=== PATIENT | female | born 1965 | race Caucasian/White ===

== ENCOUNTER 2019-09-06 01:45 | Outpatient (CLI) | payer MEDICARE, BC, SELFPAY ==
--- NOTE | 2019-09-06 13:16 | DI.US_ITS ---
EXAM: US THYROID CLINICAL HISTORY: MULTINODULAR THYROID GOITER E04.2. TECHNIQUE: Ultrasound performed using standard protocol. COMPARISON: THYROID ULTRASOUND from 08/29/2011 FINDINGS: There are again noted to be multiple nodules. The largest nodule in the right lobe measures 1.6 cm i n greatest dimension. The right lobe measures 5.4 x 2.2 x 2 cm. Left lobe measures 5.6 x 1 8 x 1.9 cm. There are multiple cystic and circumscribed nodules. No suspicious nodules are identified. IMPRESSION: Multinodular thyroid. No suspicious nodules.
== END 2019-09-06 02:05 ==
PROVIDERS: PCP Nurse Practitioner Family; Visit Provider Nurse Practitioner Family
DX: E04.2 Nontoxic multinodular goiter (principal)
CPT/HCPCS: 76536

== ENCOUNTER 2020-03-15 01:46 | Outpatient (CLI) | payer MEDICARE, BC, SELFPAY ==
[2020-03-15 12:35] LABS: ALT 26 U/L (14-59); AST 16 U/L (15-37); Albumin 3.9 g/dL (3.4-5.0); Alkaline Phosphatase 48 U/L (46-116); Anion Gap 7.7 mmol/L (3-11); BUN 19 mg/dL (7-18); Bilirubin, Direct 0.19 mg/dL (0.00-0.20); Bilirubin, Total 0.7 mg/dL (0.2-1.0); CO2 29.3 mmol/L (21.0-32.0); CREATININE 0.84 mg/dL (0.55-1.02); Chloride 105 mmol/L (98-107); Glucose 92 mg/dL (74-106); Potassium 4.3 mmol/L (3.5-5.1); Sodium 142 mmol/L (136-145); Total Protein 6.7 g/dL (6.4-8.2)
== END 2020-03-15 02:06 ==
PROVIDERS: PCP Nurse Practitioner Family; Visit Provider Nurse Practitioner Family
DX: F31.9 Bipolar disorder, unspecified (principal); Z51.81 Encounter for therapeutic drug level monitoring; Z79.899 Other long term (current) drug therapy
CPT/HCPCS: 36415; 80048; 80076; 80178

== ENCOUNTER 2020-11-05 03:09 | Outpatient (CLI) | payer MEDICARE, BC, SELFPAY ==
[2020-11-05 15:26] LABS: ALT 20 U/L (14-59); AST 14 U/L (15-37); Albumin 3.7 g/dL (3.4-5.0); Alkaline Phosphatase 48 U/L (46-116); Anion Gap 4.5 mmol/L (3-11); BUN 24 mg/dL (7-18); Bilirubin, Total 0.4 mg/dL (0.2-1.0); CO2 27.5 mmol/L (21.0-32.0); CREATININE 0.94 mg/dL (0.55-1.02); Calcium 9.5 mg/dL (8.5-10.1); Chloride 105 mmol/L (98-107); Ferritin 48 ng/mL (8-252); Glucose 99 mg/dL (74-106); Sodium 137 mmol/L (136-145); Total Protein 6.5 g/dL (6.4-8.2); Vitamin B12 670 pg/mL (193-986)
== END 2020-11-05 03:29 ==
PROVIDERS: PCP Nurse Practitioner Family; Visit Provider Nurse Practitioner
DX: R53.83 Other fatigue (principal); M25.561 Pain in right knee; F31.9 Bipolar disorder, unspecified
CPT/HCPCS: 36415; 80053; 82607; 82728; 84443

== ENCOUNTER 2020-11-29 19:08 | Emergency (ER) | payer MEDICARE, BC, SELFPAY ==
[2020-11-29 19:12] VITALS: BP 144/71; PULSE 78; RESP 18; TEMP 36.8; O2SAT 94
--- NOTE | 2020-11-29 19:19 | ED.GENADUL_ITS ---
Discharge Plan Disposition Patient Disposition: HOME Condition: Stable Discharge Details Clinical Impression: Laceration of left thumb Primary Care Provider: Virginie Gudino ED Provider: Kirsten Ely Home Meds and New Rx's Prescriptions: No Action ropinirole 1 mg tablet 1 mg PO DAILY RF: 0 lithium carbonate 300 mg tablet extended release 300 mg PO BID RF: 0 lorazepam 0.5 mg tablet 0.5 mg PO Q6H PRNRF: 0 zolpidem 5 mg tablet 5 mg PO HS PRN (Reason: can take half to one tablet) RF: 0 fluoxetine 20 mg capsule 20 mg PO DAILY RF: 0 Discharge Instructions Instructions: Finger Laceration (ED) Additional Instructions: keep dressing clean and dry for 1 day, then can remove and wash daily with warm soapy water, do not soak, pat dry completely, cover to protect. you have a steristrip holding wound closed. this will peel off gradually, don't pull it off as it would open your wound your tetanus was updated on this visit. monitor for signs of infection and return immediately if you do or call pcp. elevate to reduce throbbing and swelling can use ibuprofen and or acetaminophen for pain Referrals: Virginie Gudino [Primary Care Provider] - Discharge Data Discharge Date/Time-TO BE ENTERED AT DEPARTURE: 11/29/20 20:12 Medical Decision Making tetanus update 12-15-2012 wound cleansed by nursing, no debris in wound, wound well approximated, LET applied, bleeding controlled with finger tourniquet applied for care and evaluation. Steri strip and tube gauze applied. no further bleeding noted. Patient Name: CLIFF BECERRAit #: [id number]: ER Ordering Provider: : [facility] ER Primary Care Provider: Kei Gudino of Exam: 11/29/20ex: F : 1965Age: 55 Exam(s) PROCEDURE INFORMATION: Exam: XR Left Finger(s) Exam date and time: 11/29/2020 7:23 PM Age: 55 years old Clinical indication: Injury or trauma; Other: Laceration; Finger; Left; Injury date: 11/29/20; Injury details: PT was sharpening kitchen knives and accidentally cut her thumb. TECHNIQUE: Imaging protocol: XR Left fingers. Views: Frontal view of hand obtained supplemented with oblique and lateral views of the thumb. COMPARISON: No relevant prior studies available. FINDINGS: Bones/joints: No fracture or subluxation. Soft tissues: No radiopaque foreign body. Overlying dressing somewhat limits evaluation of soft tissues. IMPRESSION: No acute findings. Dictated and Authenticated by: Ismael Maravilla MD. Ordering:BENNIE Curtis MD Medical Records Medical records reviewed: Yes I reviewed the patient's medical records. HPI General Date/Time Provider Initiated Documentation: 11/29/20 19:16 . Limitations to Documentation: no limitations . Information obtained by: patient . HPI Narrative: cut left thumb on kitchen knife, bleeding on arrival. not on blood thinners. Related Data Home Medications Medication Instructions Recorded Confirmed fluoxetine 20 mg PO DAILY 11/29/20 11/29/20 lithium carbonate 300 mg PO BID 11/29/20 11/29/20 lorazepam 0.5 mg PO Q6H PRN 11/29/20 11/29/20 ropinirole 1 mg PO DAILY 11/29/20 11/29/20 zolpidem 5 mg PO HS PRN 11/29/20 11/29/20 Allergies Allergy/AdvReac Type Severity Reaction Status Date / Time NSAIDS (Non-Steroidal AdvReac Intermediate Other (See Unverified 11/29/20 19:17 Anti-Inflamma Comment) General Stated Complaint: Laceration EDIN: 4 Review of Systems All systems reviewed & are unremarkable except as noted in HPI and below Integumentary/Breasts Skin/Breast: Reports other (1 cm laceration) Hematologic/Lymphatic Hematologic/Lymphatic: Denies easy bleeding and Denies easy bruising PFSH Social History Smoking risk assessment performed?: No Alcohol Intake: current Alcohol Intake frequency: 0-2 drinks per day Alcohol type: wine Substance use type: does not use Do you feel safe at home: Yes Do you feel safe in your relationship?: Yes Exam Const General: cooperative, healthy appearing, comfortable and intoxicated appearing Resp Effort & Inspection: normal respiratory effort Cardio Rate: regular rate Rhythm: regular rhythm (good pulse) Skin Lesions: lesion noted (1 cm laceration, well approximate to border of nail bed, not involving nail) Rashes: no rashes Course Vital Signs Vital signs: Vital Signs Temperature 36.8 C 11/29/20 19:12 Pulse 78 11/29/20 19:12 Respiratory Rate 18 11/29/20 19:12 Blood Pressure 144/71 H 11/29/20 19:12 Pulse Oximetry 94 11/29/20 19:12 Temperature 36.8 C 11/29/20 19:12 Temperature Source Skin 11/29/20 19:12 Pulse 78 11/29/20 19:12 Respiratory Rate 18 11/29/20 19:12 Respiratory Effort 11/29/20 19:15 Blood Pressure 144/71 H 11/29/20 19:12 Pulse Oximetry 94 11/29/20 19:12 Oxygen Delivery Method Room Air 11/29/20 19:12 Oxygen Flow Rate 0 11/29/20 19:12 Pain Level 2 11/29/20 19:12
[2020-11-29] MEDS: Lidocaine/Epinephri/Tetracaine Topical Gel 3 ML TP (19:30)
--- NOTE | 2020-11-29 19:51 | DI.RAD_ITS ---
EXAM: XR THUMB LT CLINICAL HISTORY: laceration, ? fracture TECHNIQUE: COMPARISON: No exams were available for comparison FINDINGS: Three views were obtained. There is no evidence of fracture or dislocation. IMPRESSION: RADIATION DOSE DELIVERED: Total DLP
--- NOTE | 2020-11-29 20:27 | DI.VRAD_ITS ---
PROCEDURE INFORMATION: Exam: XR Left Finger(s) Exam date and time: 11/29/2020 7:23 PM Age: 55 years old Clinical indication: Injury or trauma; Other: Laceration; Finger; Left; Injury date: 11/29/20; Injury details: PT was sharpening kitchen knives and accidentally cut her thumb. TECHNIQUE: Imaging protocol: XR Left fingers. Views: Frontal view of hand obtained supplemented with oblique and lateral views of the thumb. COMPARISON: No relevant prior studies available. FINDINGS: Bones/joints: No fracture or subluxation. Soft tissues: No radiopaque foreign body. Overlying dressing somewhat limits evaluation of soft tissues. IMPRESSION: No acute findings. Dictated and Authenticated by: Ismael Maravilla MD. Ordering:BENNIE Curtis MD
== END 2020-11-29 20:12 | disposition home or self-care (01) ==
LOC: ER 20:10
PROVIDERS: Emergency Provider Nurse Practitioner Acute Care; PCP Nurse Practitioner Family
DX: S61.012A Laceration without foreign body of left thumb without damage to nail, initial encounter (principal); W26.0XXA Contact with knife, initial encounter
CPT/HCPCS: 90471; 99284; 73140; 99283

== ENCOUNTER 2020-12-17 03:17 | Outpatient (CLI) | payer MEDICARE, BC, SELFPAY | END 2020-12-17 03:37 | PROVIDERS: PCP Nurse Practitioner Family; Visit Provider Nurse Practitioner Family | DX: F31.9 Bipolar disorder, unspecified (principal); Z51.81 Encounter for therapeutic drug level monitoring | CPT/HCPCS: 36415; 80178 ==

== ENCOUNTER 2021-04-18 02:30 | Outpatient (CLI) | payer MEDICARE, BC, SELFPAY ==
--- NOTE | 2021-04-18 09:22 | DI.RAD_ITS ---
Exam(s) XR RIBS RT W PA LAT CHEST EXAM: XR RIBS RT W PA LAT CHEST CLINICAL HISTORY: s/p fall, r/o right rib fx,RIB PAIN RT SIDE, PLEURODYNIA,R07.81 TECHNIQUE: 2D digital imaging was performed. COMPARISON: No exams were available for comparison FINDINGS: There are no acute rib fractures evident. No lytic rib lesions identified. No lung contusion or pneumothorax. There is no pleural effusion evident. Heart size is normal and there is no significant mediastinal widening. IMPRESSION: 1. No right rib fractures evident. Also no obvious rib lesions. 2. No ipsilateral lung nor pleural abnormality evident. No pneumothorax. DATA REPOSITORY: RADIATION DOSE DELIVERED:
== END 2021-04-18 02:50 ==
PROVIDERS: PCP Nurse Practitioner Family; Visit Provider Nurse Practitioner Family
DX: R07.81 Pleurodynia (principal)
CPT/HCPCS: 71046; 71100

== ENCOUNTER 2021-05-31 02:22 | Outpatient (CLI) | payer MEDICARE, BC, SELFPAY ==
[2021-05-31 12:13] LABS: Lithium 1.1 mmol/l (0.6-1.2)
[2021-05-31 12:27] LABS: ALT 34 U/L (14-59); AST 20 U/L (15-37); Albumin 3.9 g/dL (3.4-5.0); Alkaline Phosphatase 70 U/L (46-116); Anion Gap 8.2 mmol/L (3-11); BUN 16 mg/dL (7-18); Bilirubin, Total 0.5 mg/dL (0.2-1.0); CO2 28.8 mmol/L (21.0-32.0); CREATININE 1.1 mg/dL (0.55-1.02); Calcium 9.9 mg/dL (8.5-10.1); Chloride 105 mmol/L (98-107); Estimated GFR 51.76 (mL/min/1.73m2); Glucose 100 mg/dL (74-106); Potassium 4.3 mmol/L (3.5-5.1); Sodium 142 mmol/L (136-145); TSH 1.89 uIU/mL (0.36-3.74); Total Protein 6.7 g/dL (6.4-8.2)
== END 2021-05-31 02:23 | disposition home or self-care (01) ==
LOC: LBO 02:22
PROVIDERS: PCP Nurse Practitioner Family
DX: E03.2 Hypothyroidism due to medicaments and other exogenous substances (principal); Z51.81 Encounter for therapeutic drug level monitoring
CPT/HCPCS: 36415; 80053; 80178; 84443

== ENCOUNTER 2021-09-03 04:05 | Outpatient (CLI) | payer MEDICARE, BC, SELFPAY ==
[2021-09-03 12:08] LABS: Lithium 0.9 mmol/l (0.6-1.2)
[2021-09-03 12:10] LABS: ALT 27 U/L (14-59); AST 17 U/L (15-37); Alkaline Phosphatase 65 U/L (46-116); Anion Gap 0.9 mmol/L (3-11); BUN 18 mg/dL (7-18); Bilirubin, Total 0.6 mg/dL (0.2-1.0); CO2 28.1 mmol/L (21.0-32.0); CREATININE 0.9 mg/dL (0.55-1.02); Calcium 10.1 mg/dL (8.5-10.1); Chloride 107 mmol/L (98-107); Glucose 100 mg/dL (74-106); Potassium 4.2 mmol/L (3.5-5.1); Sodium 136 mmol/L (136-145); TSH 1.76 uIU/mL (0.36-3.74); Total Protein 6.9 g/dL (6.4-8.2)
== END 2021-09-03 04:06 | disposition home or self-care (01) ==
LOC: LBO 04:05
PROVIDERS: PCP Nurse Practitioner Family; Visit Provider Internal Medicine
DX: E03.2 Hypothyroidism due to medicaments and other exogenous substances (principal); Z51.81 Encounter for therapeutic drug level monitoring
CPT/HCPCS: 36415; 80053; 80178; 84443

== ENCOUNTER 2022-01-17 03:48 | Outpatient (CLI) | payer MEDICARE, BC, SELFPAY ==
[2022-01-17 13:15] LABS: ALT 26 U/L (14-59); AST 16 U/L (15-37); Albumin 3.8 g/dL (3.4-5.0); Alkaline Phosphatase 69 U/L (46-116); Anion Gap 7.3 mmol/L (3-11); BUN 16 mg/dL (7-18); Bilirubin, Total 0.3 mg/dL (0.2-1.0); CO2 27.7 mmol/L (21.0-32.0); CREATININE 0.9 mg/dL (0.55-1.02); Calcium 9.9 mg/dL (8.5-10.1); Chloride 107 mmol/L (98-107); Glucose 138 mg/dL (74-106); Potassium 4.2 mmol/L (3.5-5.1); Sodium 142 mmol/L (136-145); TSH 1.13 uIU/mL (0.36-3.74); Total Protein 6.7 g/dL (6.4-8.2)
== END 2022-01-17 03:49 | disposition home or self-care (01) ==
LOC: LBO 03:48
PROVIDERS: PCP Nurse Practitioner Family; Visit Provider Nurse Practitioner
DX: F31.9 Bipolar disorder, unspecified (principal)
CPT/HCPCS: 36415; 80053; 80178; 84443

== ENCOUNTER 2022-05-26 21:54 | Emergency (ER) | payer MEDICARE, BC, SELFPAY ==
[2022-05-26 21:58] VITALS: BP 156/81; PULSE 65; RESP 18; TEMP 36.8; O2SAT 98
--- OUTSIDE RECORDS SUMMARY | 2022-05-26 21:59 | XMS_ITS | Clinical Summary ---
:1965 Author Organization [facility] [address] Care Team Providers Name Role Phone Virginie Gudino DANNA Primary Care Provider Allergies No known active allergies Medications Medication Sig Dispensed Refills Start Date End Date Status pseudoephedrine Take 30 mg by 0 Active (SUDAFED) 30 mg tablet mouth every 4 hours as needed. Reported on 03/23/2017 cetirizine (ZYRTEC) 10 Take 10 mg by 0 Active mg tabletIndications: mouth daily. seasonal allergic Reported on rhinitis 03/23/2017 Indications: Seasonal Allergic Rhinitis gabapentin (Neurontin) Take 600 mg by 0 Active 300 mg Capsule mouth nightly. ferrous sulfate 324 mg Take 324 mg by 0 Active (65 mg iron) Tablet, mouth. Delayed Release (E.C.) LORazepam (Ativan) 0.5 Take 1 tablet by 30 tablet 0 11/11/2021 Active mg Tablet mouth every 6 hours as needed for Anxiety. zolpidem (Ambien) 5 mg Take 0.5-1 30 tablet 3 01/06/2022 Active Tablet tablets by mouth nightly as needed for Sleep. 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 . Monitoring. 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 Alcohol use dis order, mild, abuse 05/03/2022 Refill Psychiatry Laura Joseph, GREEN FEED ATTENDANT 04/26/2022 Refill Psychiatry Laura Joseph, GREEN FEED ATTENDANT 04/01/2022 Refill Psychiatry Laura Joseph, GREEN FEED ATTENDANT 03/24/2022 TH Visit Psychiatry Laura Joseph, Alcoho l use disorder, mild, abuse (Primary Dx); (TeleHealth) GREEN FEED ATTENDANT Bipolar I disor rodolfo with depression from Last 3 Months Immunizations Name Administration Dates Next Due Influenza PF, Split 09/24/2015 Influenza Vaccine, Whole 08/21/2009, 10/09/2008 Family History Medical History Relation Comments Alcohol Use Disorder Brother Bipolar Disorder Brother not formally diagnos ed Anxiety Disorder Father Mental Illness Paternal Grandmother Relation Status Comments Brother Father Paternal Grandmother Social History Tobacco Use Types Packs/Day Years Used Date Never Smoker Smokeless Tobacco: Never Used Alcohol Use Standard Drinks/Week Comments No 0 (1 standard drink = 0.6 oz pure alcoho l) Sex Assigned at Date Recorded Female 02/11/2021 8:25 PM EDT Last Filed Vital Signs Vital Sign Reading Time Taken Comments Blood Pressure 123/66 06/27/2019 1:41 PM EDT Pulse 63 06/27/2019 1:41 PM EDT Temperature - - Respiratory Rate 18 06/27/2019 1:41 PM EDT Oxygen Saturation - - Inhaled Oxygen Concentration - - Weight 68 kg (150 lb) 06/27/2019 1:41 PM EDT Height 167.6 cm (5' 5.98) 06/27/2019 1:41 PM EDT Body Mass Index 24.22 06/27/2019 1:41 PM EDT Plan of Treatment Upcoming Encounters Date Type Specialty Care Team Description 06/30/2022 TH Visit (TeleHealth) Psychiatry Ashtyn Joseph, GREEN FEED ATTENDANT [facility] [address] [place] [address] (Wo rk) Health Maintenance Due Date Last Done Comments Covid-19 Vaccine (#1) 1972 HIV screen 1985 Hepatitis C Screening 1985 Tdap adult 1986 Tetanus vaccine 1986 HPV test 1997 PAP Smear 1997 Breast Cancer Share Decision Needed 2007 Colonoscopy 2012 Breast Cancer screening 2017 Zoster vaccine (1 of 2) 2017 Influenza (Flu) vaccine (1 of - 07/31/2021 09/24/2015, , Influenza standard series) 10/09/2008 Advance Directive 2022 Insurance Payer Benefit Plan / Subscriber ID Effective Phone Address T ype Group Dates MEDICARE MEDICARE PART [id number] 2019-Pres [phone] [place] [address] MEDICARE BH MEDICARE [id number] 2019-Pres [phone] [place] [address] [facility] [place] [facility] [id number] 2019-Pres [phone] [address] [place] [employer] [address] [place] [address] [facility] [id number] 2019-Prese [phone] [address] [place] [address] [place] [address] Care Teams Retail Field 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
--- OUTSIDE RECORDS SUMMARY | 2022-05-26 21:59 | XMS_ITS | Encounter Summary ---
:1965 Author Organization [facility] [place] [address] Care Team Providers Name Role Phone Virginie Gudino DANNA Primary Care Provider Encounter Details Date Type Department Care Team Description 09/30/2021 TH Visit Psychiatry and Laura Joseph Bipolar I disorder with depression (Primary Dx); (TeleHealth) Behavioral Health at , DANNA Anxiety; [facility] Alcohol use disorder, mild, abuse [facility] [address] [facility] [place] [id number] [phone] Social History Tobacco Use Types Packs/Day Years Used Date Never Smoker Smokeless Tobacco: Never Used Alcohol Use Standard Drinks/Week Comments No 0 (1 standard drink = 0.6 oz pure alcoho l) Sex Assigned at Date Recorded Female 02/11/2021 8:25 PM EDT documented as of this encounter Progress Notes Laura Joseph APRN - 09/30/2021 10:30 AM EDT ESTABLISHED ADULT PATIENT OFFICE VISIT NOTE Shireen Silva gave permission for and was seen for today's appointment with a Video Office Visit. During this visit they were located in [place]. Shireen Moralese is aware that for any urgent matter they cancall [phone]. Time Spent: 30 minutes Attendee(s): Shireen Moralese Identifying information: Shireen Silva is a 56 y.o. female with history of Bipolar I disorder. She transferred to [facility] Mistry APRN from Dr. Villalobos March 2020. She is here for ongoing follow up. Chief Complaint: History of Present Illness: () (Quality, Severity, Duration, Timing, Context, Modifying factors, Associated S&S) Psychiatric Symptoms: Had started Naltrexone though felt nauseous on the first day and stopped. Discussed restarting at 25mg if she would like. Admits to being nervous about side effects. Prozac still at 30 mg. Feels it has been helpful Had one glass of wine at dinner while in [place] for anniversary. Then went one week without drinking at all. Finds that preparing food for dinner is the time when she wants to drink the most. Trying to food prep in am to avoid a long time in the kitchen. Son is helping prepare dinner too, which joan Has had two panic attacks since we talked last. Yesterday had one talking with her son-all of suddencame on out of nowhere. Was able to verbalize to her son what was going on and he helped her throughit with conversation. Discusses the importance of her openness with her kids about her mental health Anxious about holiday season Health Changes: Reviewed labs ([place] 0.9). No concerns though will keep an eye on Calcium-Plan to recheck after [place] Work/Life/Family Updates: Going to visit family in [place] for [place] Kids all doing well-will not be going away for [place] works at [employer]-usually home on weekends Working on holiday cards and gift making Substance Use: Alcohol-about 3 glasses/night but trying to decrease Safety: passive SI, denies HI Pertinent Medication Side Effects: denied Questionnaires: PHQ9 Questionnaires Data (Clinic and Pt Entered): last 4 values PHQ-9 QUESTIONNAIRE LAST 4 VALUES (AMB) 04/15/2021 06/15/2021 08/12/2021 09/05/2021 PHQ - 9 Score (Patient) 3 (Minimal Depression) 6 (Mild Depression) 13 (Moderate Depression) 6 (Mild Depression) Little interest or pleasure (Patient) Several days Several days More than half the days Several days Down, depressed, hopeless (Patient) Several days More than half the days More than half the days Several days Trouble sleeping (Patient) Not at all Not at all More than half the days Several days Tired or no energy (Patient) Several days Several days Several days Several days Poor appetite or overeating (Patient) Not at all Not at all More than half the days Not at all Feeling like a failure (Patient) Not at all Several days More than half the days Several days Trouble concentrating (Patient) Not at all Several days Several days Not at all Moving or speaking slowly (Patient) Not at all Not at all Not at all Not at all Would be better off (Patient) Not at all Not at all Several days Several days GAD7 Questionnaires Data: last 4 values MALVIN-7 Patient Reported Responses 04/15/2021 06/15/2021 08/12/2021 09/05/2021 Nervous, anxious (Patient) Several days Several days Several days Several days Unable to stop worrying (Patient) Several days Several days Several days Several days Worrying about different things (Patient) Several days Several days Several days Several days Trouble relaxing (Patient) Not at all Not at all Several days Several days Restless (Patient) Not at all Not at all Several days Not at all Easily annoyed, irritable (Patient) Not at all Not at all Several days Not at all Afraid something awful will happen (Patient) Not at all Not at all Several days Several days Difficulty (Patient) Somewhat difficult Somewhat difficult Somewhat difficult Somewhat difficult MALVIN-7 Score (Patient) 3 (Minimal Anxiety) 3 (Minimal Anxiety) 7 (Mild Anxiety) 5 (Mild Anxiety) Current Medications: Current Outpatient Medications Medication Sig Dispense Refill ??? naltrexone (Depade) 50 mg Tablet Take 1 tablet by mouth daily. 30 tablet 0 ??? FLUoxetine (PROzac) 10 mg Capsule Take 1 capsule by mouth daily. In addition to 20 mg (TDD 30 mg) 30 capsule 12 ??? zolpidem (Ambien) 5 mg Tablet Take 0.5-1 tablets by mouth nightly as needed for Sleep. 30 tablet3 ??? lithium CR (Lithobid) 300 mg Tablet Sustained Release TAKE 2 TABLETS BY MOUTH EVERY MORNING AND 3 TABLETS IN THE EVENING 150 tablet 5 ??? FLUoxetine (PROzac) 20 mg Capsule Take 1 capsule by mouth daily. 30 capsule 5 ??? LORazepam (Ativan) 0.5 mg Tablet Take 1 tablet by mouth every 6 hours as needed for Anxiety. 30 tablet 0 ??? ferrous sulfate 324 mg (65 mg iron) Tablet, Delayed Release (E.C.) Take 324 mg by mouth. ??? gabapentin (Neurontin) 300 mg Capsule Take 600 mg by mouth nightly. ??? cetirizine (ZYRTEC) 10 mg tablet Take 10 mg by mouth daily. Reported on 03/23/2017 Indications: Seasonal Allergic Rhinitis ??? pseudoephedrine (SUDAFED) 30 mg tablet Take 30 mg by mouth every 4 hours as needed. Reported on 03/23/2017 No current facility-administered medications for this visit. Review of Systems: CONST no recent weight change and no fever GI denied NEURO no headache, no numbness, no tremors, no weakness and no seizures PSYCH See above / control n/a Allergies Reviewed on eD-H Past Psychiatric history and treatment: Per Dr. Villalobos transfer note 04/14/19 No history of hospitalizations Brief formulation/assessment of patient:??...??hx of??bipolar disorder??with??a history of manic episodes (however never hospitalization),??with??mood more recently being??predominately depressed.??She has a long history of being followed on this clinic and has been on lithium for many years. She hasa history of cutting, and reports she had started to cut more in the Spring of 2018. She lives with her and has three sons. ?? Prior medications trials: ?? Celexa ?Venlafaxine ?Fluoxetine ?Bupropion ?Risperidone ?[place]k (current at 600 mg and 900 mg daily) ?Oxcarbazepine ?Clonazepam ?Lorazepam ?Zolpidem (current at 5 mg nightly PRN insomnia) ?Eszopiclone ?Lurasidone 2017 - felt it made her mood worse Social History: She is to Noble of about 30 years. They have 3 sons (21, 25, 27). Her is retired from state [employer]. She is on disability for [employer]. Notes growing up in family that didn't express emotions easily she can internalize things. Vitals (24hr Range): No data found. Musculoskeletal System: no abnormal movements Mental Status Exam: ?? Appearance: age appropriate ?? Behavior: cooperative with the interview and good eye contact ?? Speech: normal pitch, normal volume, normal rate and normal rhythm ?? Language: fluent in macedonian ?? Mood:I'm okay. ?? Affect: full ?? Thought Process: linear and logical ?? Associations: intact ?? Thought Content: denied homicidal ideation and endorses passive SI ?? Perception: auditory hallucinations of music, sometimes people talking. Nothing negative ?? Orientation: grossly intact by interview ?? Attention/Concentration: able to sustain focus and able to resist distraction ?? Cognition: grossly intact by interview ?? Memory: recent and remote memory grossly intact ?? Fund of Knowledge: appropriate for age and level of functioning ?? Insight: good ?? Judgment: good ?? Labs: Psychiatry Labs: See uploaded results in MEDIA (09/03/21) Lab Results Component Value Date TSH 1.74 04/07/2019 Lab Results Component Value Date NA 142 04/07/2019 K 3.9 04/07/2019 CL 105 04/07/2019 CO2 27 04/07/2019 BUN 21 (H) 04/07/2019 CREATININE 0.83 04/07/2019 GLUCOSE 114 04/07/2019 CALCIUM 10.4 04/07/2019 ESTGFR 82 04/07/2019 Lab Results Component Value Date ALT 10 07/26/2018 AST 10 07/26/2018 ALKPHOS 46 07/26/2018 BILITOT 0.5 07/26/2018 BILIDIR 0.1 04/06/2014 ALBUMIN 4.1 07/26/2018 PROT 6.5 07/26/2018 Lab Results Component Value Date LITHIUM 0.89 04/07/2019 NA 142 04/07/2019 BUN 21 (H) 04/07/2019 CREATININE 0.83 04/07/2019 TSH 1.74 04/07/2019 WBC 7.4 07/26/2018 Formulation and Assessment: Diagnosis: Bipolar 1 Disorder, MALVIN CURRENT ASSESSMENT: Shireen Silva is a 56 y.o. female with BPAD and MALVIN who verbalizes depression as her baseline. We are able to discuss triggers for her alcohol use (making dinner, spending time in the kitchen). Mood and anxiety have been fairly stable; discussing with her sons seems to be helpful when struggling with either. May start Naltrexone but I am not putting pressure on Shireen to start. Plan to recheck labs after [place]-hypercalcemia has been an issue in the past and we discussed this abit. Safety Assessment: Shireen Silva admits to passive suicidal ideation and denies homicidal ideation.Protective factors include: family and community support and engaged in medical and/or mental healthcare. We carefully reviewed office and emergency contact info and when to contact our crisis line [phone]. Symptoms of lithium toxicity: Diarrhea nausea or vomiting muscle weakness tremors Drowsiness lack of coordination twitching or spasms moderate confusion or impaired consciousness agitation confusion giddiness blurred vision ringing in the ears muscle stiffness, tightness, or pain significantly increased urine output low blood pressure PLAN: ?? Medications instructions below: [place] 600 mg AM, 900 mg HS Ambien 2.5 mg-5 mg HS PRN Prozac 30 mg qd (with plan to increase to 40 mg if well tolerated) Ativan 0.5 mg PRN (last filled 03/20) Naltrexone 25 mg daily (may or may not start) ?? Additional treatment recommendations: ?? Therapy: not currently interested-did send [employer] resources ?? Labs: will obtain labs in November (Ca 10.1)-will add PTH to set of labs Patient Instruction/Education provided: Patient provided verbal instructions regarding medication side effects, safety plan in case of feeling unsafe. Patient understands the plan? Yes Signed By: Laura Joseph APRN 09/30/2021 documented in this encounter Plan of Treatment Upcoming Encounters Date Type Specialty Care Team Description 06/30/2022 TH Visit (TeleHealth) Psychiatry Ashtyn Joseph APRN [facility] [address] [place], [place] [address] (Wo rk) documented as of this encounter Visit Diagnoses Diagnosis Bipolar I disorder with depression - [facility] Bipolar I disorder, most recent episode (or current) depressed, unspecified Anxiety Anxiety state, unspecified Alcohol use disorder, mild, abuse documented in this encounter Care Teams Archery Equipment Repairer Relationship Specialty Start Date End Date Virginie Gudino APRN PCP - General Family Medicine 06/16/18 [place] [address] documented as of this encounter
--- OUTSIDE RECORDS SUMMARY | 2022-05-26 21:59 | XMS_ITS | Encounter Summary ---
:1965 Author Organization [facility] [place] [address] Care Team Providers Name Role Phone TereseVirginie DANNA Primary Care Provider Encounter Details Date Type Department Care Team Description 02/10/2022 TH Visit Psychiatry and Laura Joseph Bipolar affective disorder, currently depressed, mild (Primary Dx); (TeleHealth) Behavioral Health at [facility] [place] Alcohol use disorder, mild, abuse [facility] [address] [facility] [place] [phone] Social History Tobacco Use Types Packs/Day Years Used Date Never Smoker Smokeless Tobacco: Never Used Alcohol Use Standard Drinks/Week Comments No 0 (1 standard drink = 0.6 oz pure alcoho l) Sex Assigned at Date Recorded Female 02/11/2021 8:25 PM EDT documented as of this encounter Progress Notes Lauar Joseph APRN - 02/10/2022 11:00 AM EDT ESTABLISHED ADULT PATIENT OFFICE VISIT NOTE Shireen Silva gave permission for and was seen for today's appointment with a Video Office Visit. During this visit they were located in [place]. Shireen Badillodge is aware that for any urgent matter they cancall [phone]. Time Spent: 25 minutes Attendee(s): Shireen Ricardo Identifying information: Shireen Silva is a 56 y.o. female with history of Bipolar I disorder. She transferred to Zhanna Mistry APRN from Dr. Villalobos March 2020. She is here for ongoing follow up. Chief Complaint: History of Present Illness: () (Quality, Severity, Duration, Timing, Context, Modifying factors, Associated S&S) Psychiatric Symptoms: Doing 'okay'-'more lows' A few panic attacks over night-one night did take Ativan and another night got up, got a glass of water, walked around. Able to calm down both times. Alcohol use- really working on cutting back-smaller boxes of ruth. Son had been helping 'distribute' but Shireen admits she found where he would hide the wine, so this was short lived. No 'blackouts' since last appointment. Did get really sick one night-may be attributed to wine but not entirely sure? Looking for counselor Health Changes: Feeling physically well. Reviewed labs-all look fairly good (glucose a bit high, otherwise no concerns) Fairbury 1.0 Really looking forward to walk this spring Trying to eat better-trying low carb Work/Life/Family Updates: New dog-Anna. Rescue dog from [place] My youngest son has really been helpful [facility] [place] [facility] Substance Use: Alcohol-about 3 glasses/night but trying to decrease . Safety: denies SI, denies HI Pertinent Medication Side Effects: denied Questionnaires: PHQ9 Questionnaires Data (Clinic and Pt Entered): last 4 values PHQ-9 QUESTIONNAIRE LAST 4 VALUES (AMB) 09/29/2021 11/08/2021 01/06/2022 02/06/2022 PHQ - 9 Score (Patient) 6 (Mild Depression) 4 (Minimal Depression) 4 (Minimal Depression) 7 (Mild Depression) Little interest or pleasure (Patient) Several days Several days Several days Several days Down, depressed, hopeless (Patient) Several days Several days Several days Several days Trouble sleeping (Patient) Not at all Not at all Not at all Several days Tired or no energy (Patient) Several days Several days Several days Several days Poor appetite or overeating (Patient) Several days Not at all Not at all Not at all Feeling like a failure (Patient) Several days Several days Several days Several days Trouble concentrating (Patient) Several days Not at all Not at all Several days Moving or speaking slowly (Patient) Not at all Not at all Not at all Not at all Would be better off (Patient) Not at all Not at all Not at all Several days GAD7 Questionnaires Data: last 4 values MALVIN-7 Patient Reported Responses 09/29/2021 11/08/2021 01/06/2022 02/06/2022 Nervous, anxious (Patient) Several days Several days Not at all Several days Unable to stop worrying (Patient) Several days Not at all Not at all Several days Worrying about different things (Patient) Several days Not at all Not at all Several days Trouble relaxing (Patient) Not at all Not at all Not at all Not at all Restless (Patient) Not at all Not at all Not at all Not at all Easily annoyed, irritable (Patient) Not at all Several days Not at all Not at all Afraid something awful will happen (Patient) Several days Several days Not at all Not at all Difficulty (Patient) Somewhat difficult Somewhat difficult Not difficult at all Somewhat difficult MALVIN-7 Score (Patient) 4 (Minimal Anxiety) 3 (Minimal Anxiety) 0 (No Anxiety) 3 (Minimal Anxiety) Current Medications: Current Outpatient Medications Medication Sig Dispense Refill ??? FLUoxetine (PROzac) 40 mg Capsule Take 1 capsule by mouth daily. 30 capsule 3 ??? zolpidem (Ambien) 5 mg Tablet Take 0.5-1 tablets by mouth nightly as needed for Sleep. 30 tablet3 ??? LORazepam (Ativan) 0.5 mg Tablet Take 1 tablet by mouth every 6 hours as needed for Anxiety. 30 tablet 0 ??? lithium CR (Lithobid) 300 mg Tablet Sustained Release TAKE 2 TABLETS BY MOUTH EVERY MORNING AND 3 TABLETS IN THE EVENING 150 tablet 5 ??? ferrous sulfate 324 mg (65 mg [...] had started to cut more in the spring. She lives with her and has three sons. ?? Prior medications trials: ?? Celexa ?Venlafaxine ?Fluoxetine ?Bupropion ?Risperidone ?Fairbury (current at 600 mg and 900 mg daily) ?Oxcarbazepine ?Clonazepam ?Lorazepam ?Zolpidem (current at 5 mg nightly PRN insomnia) ?Eszopiclone ?Lurasidone 2017 - felt it made her mood worse Naltrexone-GI side effects Manic symptoms have included: increased energy, grandiosity, fast speech, decreased need for sleep, excessive spending Social History: She is to [place] of [...] and normal rhythm ?? Language: fluent in kyrgyz ?? Mood:I'm okay. ?? Affect: full ?? [...] age and level of functioning ?? Insight: fair ?? Judgment: fair ?? Labs: Psychiatry Labs: See uploaded results [...] MALVIN who verbalizes depression as her baseline. She continues to work on decreasing her alcohol intake and recognizes that her intakeis excessive and does affect her mental health greatly. Safety Assessment: Shireen Silva denies suicidal ideation and denies homicidal ideation. Protectivefactors include: family and community support and engaged in medical and/or mental health care. We carefully reviewed office and emergency contact info and when to contact our crisis line at . Symptoms of lithium toxicity: Diarrhea nausea or vomiting muscle weakness tremors Drowsiness lack of coordination twitching or spasms moderate confusion or impaired consciousness agitation confusion giddiness blurred vision ringing in the ears muscle stiffness, tightness, or pain significantly increased urine output low blood pressure PLAN: ?? Medications instructions below: Fairbury 600 mg AM, 900 mg HS Ambien 2.5 mg-5 mg HS PRN Prozac 40 mg qd Ativan 0.5 mg PRN (last filled 03/20) ?? Additional treatment recommendations: Therapy: it's not that easy for me to get that going. Labs: will obtain in the next month Patient Instruction/Education provided: Patient provided verbal instructions regarding medication side effects, safety plan in case of feeling unsafe. Patient understands the plan? Yes Signed By: Laura Joseph APRN 02/10/2022 documented in this encounter Plan of Treatment Upcoming Encounters Date Type Specialty Care Team Description 06/30/2022 TH Visit (TeleHealth) Psychiatry Ashtyn Joseph APRN [facility] [address] [place], [place] [address] (Wo rk) documented as of this encounter Visit Diagnoses Diagnosis Bipolar affective disorder, currently de pressed, mild - Primary Bipolar I disorder, most recent episode (or current) depressed, moderate Alcohol use disorder, mild, abuse documented in this encounter Care Teams Conductor/Brakeman Relationship Specialty Start Date End Date Virginie Gudino APRN PCP - General Family Medicine 06/16/18 [address] [place] [address] documented as of this encounter
--- OUTSIDE RECORDS SUMMARY | 2022-05-26 21:59 | XMS_ITS | Encounter Summary ---
:1965 Author Organization [facility] [place] [address] Care Team Providers Name Role Phone MariettaVirginie ventura DANNA Primary Care Provider Encounter Details Date Type Department Care Team Description 03/24/2022 TH Visit Psychiatry and Laura Joseph Alcohol use disorder, mild, abuse (Primary Dx); (TeleHealth) [facility] Bipolar I disorder with depression [facility] [address] [facility] [place] [phone] Social History Tobacco Use Types Packs/Day Years Used Date Never Smoker Smokeless Tobacco: Never Used Alcohol Use Standard Drinks/Week Comments No 0 (1 standard drink = 0.6 oz pure alcoho l) Sex Assigned at Date Recorded Female 02/11/2021 8:25 PM EDT documented as of this encounter Progress Notes Laura Joseph APRN - 03/24/2022 11:00 AM EDT ESTABLISHED ADULT PATIENT OFFICE VISIT NOTE Shireen Silva gave permission for and was seen for today's appointment with a Video Office Visit. During this visit they were located in [place]. Shireen Moralese is aware that for any urgent matter they cancall [phone]. Time Spent: 30 minutes Attendee(s): Shireen Ricardo Identifying information: Shireen Silva is a 56 y.o. female with history of Bipolar I disorder. She transferred to Zhanna Mistry APRN from Dr. Villalobos March 2020. She is here for ongoing follow up. Chief Complaint: here for follow up History of Present Illness: () (Quality, Severity, Duration, Timing, Context, Modifying factors, Associated S&S) Psychiatric Symptoms: Has been about three weeks without alcohol-about one month ago had COVID-hit hard with bad cold but overall bounced back-this jumpstarted her on stopping drinking. Brother has history of heavy alcohol use and did attend AA (unsure of where he's at now re: recovery) and she remembers 'dad drank when I was young and then he didn't'. Went to [place] for Easter-did not drink there at all and is very happy with this. Feels really strong at this time. Does not have wine in the house. Feels more psychological need to drink than physical (time of day-when preparing dinner. Part of the culture of food). Has been drinking diet soda instead. Mood has been overall good, better Anxiety very low/non-existent Sleep has been good. Getting ready for outdoor projects-gardening, cleaning out basement Health Changes: Feeling physically well. Did have COVID Trying to eat better-trying low carb Work/Life/Family Updates: Anna (rescue dog). Loves walks and car rides. Great addition to the family My youngest son has really been helpful Went to [place] for Easter and hoping to go back sooner than later. Was able to see sisters-one came up from [place] and it was great to see her Substance Use: Alcohol-about 3 glasses/night but trying [...] trials: ?? Celexa ?Venlafaxine ?Fluoxetine ?Bupropion ?Risperidone ?J.F. Villareal (current at 600 mg and 900 mg [...] and normal rhythm ?? Language: fluent in mongolian ?? Mood:I'm good!. ?? Affect: full ?? Thought Process: linear [...] who verbalizes depression as her baseline. She has been alcohol free for about three weeks and I can see a noticeable change in her mood and outlook. Shireen is much more confident and engaged and looks physically healthier. Encouragement to continue cessation provided; we will talk in two months. Safety Assessment: Shireen Silva denies suicidal ideation [...] blood pressure PLAN: ?? Medications instructions below: J.F. Villareal 600 mg AM, 900 mg HS Ambien 2.5 mg-5 mg HS PRN Prozac 40 mg qd Ativan 0.5 mg PRN (last filled 03/20) ?? Additional treatment recommendations: Therapy: none at this time Labs: none Patient Instruction/Education provided: Patient provided verbal instructions regarding medication side effects, safety plan in case of feeling unsafe. Patient understands the plan? Yes Signed By: Laura Joseph APRN 03/24/2022 documented in this encounter Plan of Treatment Upcoming Encounters Date Type Specialty Care Team Description 06/30/2022 TH Visit (TeleHealth) Psychiatry Ashtyn Joseph APRN [facility] [address] [place], [place] [address] (Wo rk) documented as of this encounter Visit Diagnoses Diagnosis Alcohol use disorder, mild, abuse - Prim zoila Bipolar I disorder with depression Bipolar I disorder, most recent episode (or current) depressed, unspecified documented in this encounter Care Teams Car Sales Consultant Relationship Specialty Start Date End Date Virginie Gudino APRN PCP - General Family Medicine 06/16/18 [place] [address] documented as of this encounter
--- OUTSIDE RECORDS SUMMARY | 2022-05-26 21:59 | XMS_ITS | Continuity of Care Document ---
:1965 Author Organization [facility] Care Team Providers Name Role Phone [facility] Unavailable Unavailable Social History Combined list of available smoking, tobacco, and other social history from [facility]. Social History Type Response Date Comment Source This section is an empty social history section. [facility]
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
--- OUTSIDE RECORDS SUMMARY | 2022-05-26 21:59 | XMS_ITS | Encounter Summary ---
:1965 Author Organization [place] [address] Care Team Providers Name Role Phone Virginie Gudino APRN Primary Care Provider Reason for Visit Reason Onset Date Comments Medication Refill 05/03/2022 Encounter Details Date Type Department Care Team Description 05/03/2022 Refill Psychiatry and Behavioral Laura Hogan APRN [facility] [place] [address] [place] [address] [phone] (Lashanda franco) Social History Tobacco Use Types Packs/Day Years Used Date Never Smoker Smokeless Tobacco: Never Used Alcohol Use Standard Drinks/Week Comments No 0 (1 standard drink = 0.6 oz pure alcoho l) Sex Assigned at Date Recorded Female 02/11/2021 8:25 PM EDT documented as of this encounter Plan of Treatment Upcoming Encounters Date Type Specialty Care Team Description 06/30/2022 TH Visit (TeleHealth) Psychiatry Ashtyn Joseph APRN [facility] [address] [place], [place] [address] (Lashanda franco) documented as of this encounter Visit Diagnoses Not on filedocumented in this encounter Care Teams Test Skein Winder Relationship Specialty Start Date End Date Virginie Gudino APRN PCP - General Family Medicine 06/16/18 [address] [place] [address] documented as of this encounter
--- OUTSIDE RECORDS SUMMARY | 2022-05-26 21:59 | XMS_ITS | Encounter Summary ---
:1965 Author Organization [facility] [place] [address] Care Team Providers Name Role Phone MariettaVirginie ventura DANNA Primary Care Provider Encounter Details Date Type Department Care Team Description 01/06/2022 TH Visit Psychiatry and Laura Joseph Bipolar affective disorder, currently depressed, moderate (Primary Dx); (TeleHealth) Behavioral Health at DANNA [place] Alcohol use disorder, mild, abuse [facility] [address]azar PSYCHIAT[facility] [place] [phone] Social History Tobacco Use Types Packs/Day Years Used Date Never Smoker Smokeless Tobacco: Never Used Alcohol Use Standard Drinks/Week Comments No 0 (1 standard drink = 0.6 oz pure alcoho l) Sex Assigned at Date Recorded Female 02/11/2021 8:25 PM EDT documented as of this encounter Progress Notes Laura Joseph APRN - 01/06/2022 11:00 AM EST ESTABLISHED ADULT PATIENT OFFICE VISIT NOTE Shireen Silva gave permission for and was seen for today's appointment with a Video Office Visit. During this visit they were located in [place]. Shireen Moralese is aware that for any urgent matter they cancall [phone]. Time Spent: 25 minutes Attendee(s): Shireen Moralese Identifying information: Shireen Silva is a 56 y.o. female with history of Bipolar I disorder. She transferred to Zhanna Mistry APRN from Dr. Villalobos March 2020. She is here for ongoing follow up. Chief Complaint: History of Present Illness: () (Quality, Severity, Duration, Timing, Context, Modifying factors, Associated S&S) Psychiatric Symptoms: Doing 'okay' Anxiety has been 'fine'-has not needed Ativan in over one month Depression has increased-feeling low energy but is able to acknowledge that alcohol use adds to this- Drinking daily-no blackouts but I know that my depression goes hand in hand with that. When askedabout how much she is drinking each day/night, Shireen is unable to quantify. Did not get labs-will within the next month Health Changes: Feeling physically well. Will get labs this month (forgot) Work/Life/Family Updates: Bought online crafting instructions/tutorial videos with money mom gave her for DLS. Made pop-up cards. Iron on designs for T-shirts, wooden door sign, working on shadow-box for her dog that two weeks ago Substance Use: Alcohol-about 3 glasses/night but trying to decrease . Safety: denies SI, denies HI Pertinent Medication Side Effects: denied Questionnaires: PHQ9 Questionnaires Data (Clinic and Pt Entered): last 4 values PHQ-9 QUESTIONNAIRE LAST 4 VALUES (AMB) 08/12/2021 09/05/2021 09/29/2021 11/08/2021 PHQ - 9 Score (Patient) 13 (Moderate Depression) 6 (Mild Depression) 6 (Mild Depression) 4 (Minimal Depression) Little interest or pleasure (Patient) More than half the days Several days Several days Several days Down, depressed, hopeless (Patient) More than half the days Several days Several days Several days Trouble sleeping (Patient) More than half the days Several days Not at all Not at all Tired or no energy (Patient) Several days Several days Several days Several days Poor appetite or overeating (Patient) More than half the days Not at all Several days Not at all Feeling like a failure (Patient) More than half the days Several days Several days Several days Trouble concentrating (Patient) Several days Not at all Several days Not at all Moving or speaking slowly (Patient) Not at all Not at all Not at all Not at all Would be better off (Patient) Several days Several days Not at all Not at all GAD7 Questionnaires Data: last 4 values MALVIN-7 Patient Reported Responses 08/12/2021 09/05/2021 09/29/2021 11/08/2021 Nervous, anxious (Patient) Several days Several days Several days Several days Unable to stop worrying (Patient) Several days Several days Several days Not at all Worrying about different things (Patient) Several days Several days Several days Not at all Trouble relaxing (Patient) Several days Several days Not at all Not at all Restless (Patient) Several days Not at all Not at all Not at all Easily annoyed, irritable (Patient) Several days Not at all Not at all Several days Afraid something awful will happen (Patient) Several days Several days Several days Several days Difficulty (Patient) Somewhat difficult Somewhat difficult Somewhat difficult Somewhat difficult MALVIN-7 Score (Patient) 7 (Mild Anxiety) 5 (Mild Anxiety) 4 (Minimal Anxiety) 3 (Minimal Anxiety) Current Medications: Current Outpatient Medications Medication Sig Dispense Refill ??? LORazepam (Ativan) 0.5 mg Tablet Take 1 tablet by mouth every 6 hours as needed for Anxiety. 30 tablet 0 ??? FLUoxetine (PROzac) 20 mg Capsule Take 1 capsule by mouth daily. In addition to 10 mg 30 capsule5 ??? lithium CR (Lithobid) 300 mg Tablet Sustained Release TAKE 2 TABLETS BY MOUTH EVERY MORNING AND 3 TABLETS IN THE EVENING 150 tablet 5 ??? zolpidem (Ambien) 5 mg Tablet Take 0.5-1 tablets by mouth nightly as needed for Sleep. 30 tablet3 ??? FLUoxetine (PROzac) 10 mg Capsule Take 1 capsule by mouth daily. In addition to 20 mg (TDD 30 mg) 30 capsule 12 ??? ferrous sulfate 324 mg (65 mg [...] trials: ?? Celexa ?Venlafaxine ?Fluoxetine ?Bupropion ?Risperidone ?[place] (current at 600 mg and 900 mg [...] and normal rhythm ?? Language: fluent in [place] ?? Mood:I'm okay. ?? Affect: full ?? [...] who verbalizes depression as her baseline. We review her history of diana as she asks if she should utilize her lightbox for current depressed mode. She reports history of excessive energy, several nights of not needing sleep, excessive spending (I came home with a new car!) and decide to only increase Prozac to 40 mg to avoidpossible cycling. We discuss at length the contribution that alcohol has to her depression. She recognizes this and acknowledges that she does have the resources I provided to her months ago for her research. She reports not tolerating Naltrexone well and does not want medication assistance. Safety Assessment: Shireen Silva denies suicidal ideation [...] blood pressure PLAN: ?? Medications instructions below: [place] 600 mg AM, 900 mg HS Ambien [...] plan? Yes Signed By: Laura Joseph APRN 01/06/2022 documented in this encounter Plan of Treatment Upcoming Encounters Date Type Specialty Care Team Description 06/30/2022 TH Visit (TeleHealth) Psychiatry Ashtyn Joseph APRN [facility] [address] [place], [place] [address] (Wo rk) documented as of this encounter Visit Diagnoses Diagnosis Bipolar affective disorder, currently de pressed, moderate - Primary Bipolar I disorder, most recent episode (or current) depressed, moderate Alcohol use disorder, mild, abuse documented in this encounter Care Teams Advertising Sales Representative Relationship Specialty Start Date End Date Virginie Gudino APRN PCP - General Family Medicine 06/16/18 [place] [address] documented as of this encounter
--- OUTSIDE RECORDS SUMMARY | 2022-05-26 21:59 | XMS_ITS | Encounter Summary ---
:1965 Author Organization [facility] [place] [address] Care Team Providers Name Role Phone Virginie Gudino APRN Primary Care Provider Reason for Visit Reason Onset Date Comments Medication Refill 10/18/2021 Encounter Details Date Type Department Care Team Description 10/18/2021 Refill Psychiatry and Behavioral Laura Hogan APRN [facility] [place] [address] [place] [address] [phone] (Lashanad franco) Social History Tobacco Use Types Packs/Day [...] TH Visit (TeleHealth) Psychiatry Ashtyn Joseph APRN [facility] [address] [place], [place] [address] (Lashanda franco) documented as of this encounter Visit Diagnoses Not on filedocumented in this encounter Care Teams Wastewater Technician Relationship Specialty Start Date End Date Virginie Gudino APRN PCP - General Family Medicine 06/16/18 [address] [place] [address] documented as of this encounter
--- OUTSIDE RECORDS SUMMARY | 2022-05-26 21:59 | XMS_ITS | Encounter Summary ---
:1965 Author Organization [facility] [place] [address] Care Team Providers Name Role Phone MariettaVirginie ventura DANNA Primary Care Provider Encounter Details Date Type Department Care Team Description 05/19/2022 TH Visit Psychiatry and Laura Joseph Bipolar affective disorder, currently depressed, mild (Primary Dx); (TeleHealth) Behavioral Health at DANNA [place] Alcohol use disorder, mild, abuse [facility] [address] Salazar PSYCHIATRY [place] [address] [phone] Social History Tobacco Use Types Packs/Day Years Used Date Never Smoker Smokeless Tobacco: Never Used Alcohol Use Standard Drinks/Week Comments No 0 (1 standard drink = 0.6 oz pure alcoho l) Sex Assigned at Date Recorded Female 02/11/2021 8:25 PM EDT documented as of this encounter Progress Notes Laura Joseph APRN - 05/19/2022 9:00 AM EDT See PMHNP student note Wendy Collado - 05/19/2022 9:00 AM EDT ESTABLISHED ADULT PATIENT OFFICE VISIT NOTE Shireen Silva gave permission for and was seen for today's appointment with a Video Office Visit. During this visit they were located in [place]. Shireen Silva is aware that for any urgent matter they cancall [phone]. Time Spent: 30 minutes Attendee(s): Shireen Sivla, Laura Joseph, JUANHNP, Wendy Collado APRN student. Identifying information: Shireen Silva is a 57 y.o. female with history of Bipolar I disorder. She transferred to Zhanna Mistry APRN from Dr. Villalobos March 2020. She is here for ongoing follow up. Chief Complaint: here for follow up History of Present Illness: () (Quality, Severity, Duration, Timing, Context, Modifying factors, Associated S&S) Psychiatric Symptoms: Reports mood has been good, she began drinking again over the past couple of weeks but feels the amount is less, reports having 1-2 glasses of wine daily. She did try Gustabo's hard lemonade but feels thealcohol content is too low and she was drinking too many. She feels as though she is a bad influenceon her son with her alcohol use. Recently signed up for [employer]le Sutherland to promote alcohol abstinence.She has noted an increase in her anxiety and panic attacks since she has begun drinking again, I don't know why I do this to myself. Expresses motivation to abstain from alcohol again. The family is planning a trip to [place] this coming May. Mood has been overall good, better Anxiety increased with resumption of alcohol, now having 'panic attacks.' Sleep has been good. Getting ready for outdoor projects-gardening, cleaning out basement; goal is to accomplish at least one task daily. Health Changes: Getting out for walks with the dog daily, 1-2 miles. Feeling physically well. Had COVID. Trying to eat better-diet has been not so good as of late. Substituting sugary foods for alcohol. Work/Life/Family Updates: Anna (rescue dog). Loves walks and car rides. Great addition to the family My youngest son has really been helpful Substance Use: Alcohol-about 3 glasses/night, more recently 1-2 glass of wine each night; was drinking a lot of Gustabo's hard lemonade Safety: denies SI, denies HI Pertinent Medication Side Effects: denied Questionnaires: PHQ9 Questionnaires Data (Clinic and Pt Entered): last 4 values PHQ-9 QUESTIONNAIRE LAST 4 VALUES (AMB) 01/06/2022 02/06/2022 03/20/2022 05/16/2022 PHQ - 9 Score (Patient) 4 (Minimal Depression) 7 (Mild Depression) 4 (Minimal Depression) 3 (MinimalDepression) Little interest or pleasure (Patient) Several days Several days Several days Several days Down, depressed, hopeless (Patient) Several days Several days Several days Several days Trouble sleeping (Patient) Not at all Several days Not at all Not at all Tired or no energy (Patient) Several days Several days Several days Several days Poor appetite or overeating (Patient) Not at all Not at all Not at all Not at all Feeling like a failure (Patient) Several days Several days Several days Not at all Trouble concentrating (Patient) Not at all Several days Not at all Not at all Moving or speaking slowly (Patient) Not at all Not at all Not at all Not at all Would be better off (Patient) Not at all Several days Not at all Not at all GAD7 Questionnaires Data: last 4 values MALVIN-7 Patient Reported Responses 01/06/2022 02/06/2022 03/20/2022 05/16/2022 Nervous, anxious (Patient) Not at all Several days Several days Several days Unable to stop worrying (Patient) Not at all Several days Several days Several days Worrying about different things (Patient) Not at all Several days Several days Several days Trouble relaxing (Patient) Not at all Not at all Not at all Several days Restless (Patient) Not at all Not at all Not at all Not at all Easily annoyed, irritable (Patient) Not at all Not at all Several days Not at all Afraid something awful will happen (Patient) Not at all Not at all Several days Not at all Difficulty (Patient) Not difficult at all Somewhat difficult Somewhat difficult Somewhat difficult MALVIN-7 Score (Patient) 0 (No Anxiety) 3 (Minimal Anxiety) 5 (Mild Anxiety) 4 (Minimal Anxiety) Current Medications: Current Outpatient Medications Medication Sig Dispense Refill ??? FLUoxetine (PROzac) 40 mg Capsule TAKE ONE CAPSULE BY MOUTH EVERY DAY 30 capsule 3 ??? lithium CR (Lithobid) 300 mg Tablet Sustained Release TAKE 2 TABLETS BY MOUTH EVERY MORNING AND TAKE 3 TABLETS EVERY EVENING 150 tablet 5 ??? zolpidem (Ambien) [...] trials: ?? Celexa ?Venlafaxine ?Fluoxetine ?Bupropion ?Risperidone ?[place] (current at 600 mg and 900 mg [...] and normal rhythm ?? Language: fluent in [place]rican ?? Mood:pretty good. ?? Affect: full ?? Thought Process: linear and logical ?? Associations: intact ?? Thought Content: Denies homicidal or suicidal ideation, does endorse hx passive SI without plan, ?? Perception: No reported auditory hallucinations at today's visit, Historically reports auditory hallucinations of music, sometimes people talking. Nothing negative ?? Orientation: grossly intact by interview ?? Attention/Concentration: able to sustain focus and able to resist distraction ?? Cognition: grossly intact by interview ?? Memory: recent and remote memory grossly intact by interview ?? Fund of Knowledge: appropriate for age [...] MALVIN CURRENT ASSESSMENT: Shireen Silva is a 57 y.o. female with BPAD and MALVIN who verbalizes depression as her baseline, more recently mood has been good. She has been drinking 1-2 glasses of wine daily, recognizes she was feeling much better physically and psychologically when abstaining. She is participating in in the Krystle Sutherland on-line support group to support alcohol abstinence, her son remains herlargest support in the community. Shireen remains engaged, seems hopeful about continuing to increase activity level and accomplishing at least 1 task daily. Encouragement to continue alcohol cessation and engage in self-care activities provided; we will talk in two months. [...] blood pressure PLAN: ?? Medications instructions below: [place] 600 mg AM, 900 mg HS Ambien 5 mg HS PRN Prozac 40 mg qd Ativan 0.5 mg PRN (last filled 11/19) ?? Additional treatment recommendations: Therapy: none at this time Labs: none Patient Instruction/Education provided: Patient provided verbal instructions regarding medication side effects, safety plan in case of feeling unsafe. Patient understands the plan? Yes Signed By: Wendy Collado APRN student 05/19/2022 documented in this encounter Plan of Treatment Upcoming Encounters Date Type Specialty Care Team Description 06/30/2022 TH Visit (TeleHealth) Psychiatry Ashtyn Joseph APRN [facility] ER [address] [place], [place] [address] (Wo rk) documented as of this encounter Visit Diagnoses Diagnosis Bipolar affective disorder, currently de pressed, mild - Primary Bipolar I disorder, most recent episode (or current) depressed, moderate Alcohol use disorder, mild, abuse documented in this encounter Care Teams Security Incident Handler Relationship Specialty Start Date End Date Virginie Gudino APRN PCP - General Family Medicine 06/16/18 [address] [place] [address] documented as of this encounter
--- OUTSIDE RECORDS SUMMARY | 2022-05-26 21:59 | XMS_ITS | Encounter Summary ---
:1965 Author Organization [place] [address] Care Team Providers Name Role Phone Virginie Gudino APRN Primary Care Provider Reason for Visit Reason Comments Medication Refill Encounter Details Date Type Department Care Team Description 04/26/2022 Refill Psychiatry and Behavioral Laura Hogan APRN [facility] [address] [place] [address] [place] [address] [phone] (Lashanda franco) Social History Tobacco Use Types [...] TH Visit (TeleHealth) Psychiatry Ashtyn Joseph APRN [facility] [address] [place], [place] [address] (Wo rk) documented as of this encounter Visit Diagnoses Not on filedocumented in this encounter Care Teams Change Agent Relationship Specialty Start Date End Date Virginie Gudino APRN PCP - General Family Medicine 06/16/18 [place], [place] [address] documented as of this encounter
--- OUTSIDE RECORDS SUMMARY | 2022-05-26 22:00 | XMS_ITS | Encounter Summary ---
:1965 Author Organization [facility] [address] Care Team Providers Name Role Phone Virginie Gudino APRN Primary Care Provider Reason for Visit Reason Onset Date Comments Medication Refill 10/21/2019 Encounter Details Date Type Department Care Team Description 10/21/2019 Refill Psychiatry and Behavioral Zhanna Mistry APRN [facility] [place] [address] [place] [address] [phone] Social History Tobacco Use Types Packs/Day Years [...] TH Visit (TeleHealth) Psychiatry Ashtyn Joseph APRN [facility] [address] [place], [place] [address] (Wo rk) documented as of this encounter Visit Diagnoses Not on filedocumented in this encounter Care Teams Tailings Man Relationship Specialty Start Date End Date Virginie Gudino APRN PCP - General Family Medicine 06/16/18 [place], [place] [address] documented as of this encounter
--- OUTSIDE RECORDS SUMMARY | 2022-05-26 22:00 | XMS_ITS | Encounter Summary ---
:1965 Author Organization [facility] [place] [address] Care Team Providers Name Role Phone Virginie Gudino APRN Primary Care Provider Reason for Visit Reason Onset Date Comments Medication Refill 03/22/2021 Encounter Details Date Type Department Care Team Description 03/22/2021 Refill Psychiatry and Behavioral Health at [facility] [place] [address] Social History Tobacco Use Types Packs/Day Years [...] TH Visit (TeleHealth) Psychiatry Ashtyn Joseph APRN [facility] [address] [place], [place] [address] (Wo rk) documented as of this encounter Visit Diagnoses Not on filedocumented in this encounter Care Teams Swatch Cutter Relationship Specialty Start Date End Date Virginie Gudino APRN PCP - General Family Medicine 06/16/18 [place] [address] documented as of this encounter
--- OUTSIDE RECORDS SUMMARY | 2022-05-26 22:00 | XMS_ITS | Encounter Summary ---
:1965 Author Organization [facility] [place] [address] Care Team Providers Name Role Phone MariettaVirginie ventura DANNA Primary Care Provider Encounter Details Date Type Department Care Team Description 01/03/2021 Telephone Psychiatry Zhanna Mistry APRN [facility] [place] [address] [place] [address] [phone] (Wo rk) Social History Tobacco Use Types Packs/Day Years Used Date Never Smoker Smokeless Tobacco: Never Used Alcohol Use Standard Drinks/Week Comments No 0 (1 standard drink = 0.6 oz pure alcoho l) Sex Assigned at Date Recorded Female 02/11/2021 8:25 PM EDT documented as of this encounter Miscellaneous Notes Telephone Encounter - Zhanna Mistry APRN - 01/03/2021 9:52 AM EST Opened in error documented in this encounter Plan of Treatment Upcoming Encounters Date Type Specialty Care Team Description 06/30/2022 TH Visit (TeleHealth) Psychiatry Ashtyn Joseph APRN [facility] ER [address] [place], [place] [address] (Wo rk) documented as of this encounter Visit Diagnoses Not on filedocumented in this encounter Care Teams Coil Machine Supervisor Relationship Specialty Start Date End Date Virginie Gudino APRN PCP - General Family Medicine 06/16/18 [place] [address] documented as of this encounter
--- OUTSIDE RECORDS SUMMARY | 2022-05-26 22:00 | XMS_ITS | Encounter Summary ---
:1965 Author Organization [facility] [place] [address] Care Team Providers Name Role Phone Virginie Gudino APRN Primary Care Provider Reason for Visit Reason Onset Date Comments Medication Refill 07/19/2019 Encounter Details Date Type Department Care Team Description 07/19/2019 Refill Psychiatry and Behavioral Juan [place] [address] Social History Tobacco Use Types Packs/Day [...] TH Visit (TeleHealth) Psychiatry Ashtyn Joseph APRN [facility] [address] [place], [place] [address] (Wo rk) documented as of this encounter Visit Diagnoses Not on filedocumented in this encounter Care Teams Director Of Academic Support Relationship Specialty Start Date End Date iVrginie Gudino APRN PCP - General Family Medicine 06/16/18 [place] [address] documented as of this encounter
--- OUTSIDE RECORDS SUMMARY | 2022-05-26 22:00 | XMS_ITS | Encounter Summary ---
:1965 Author Organization [facility] [place] [address] Care Team Providers Name Role Phone Virginie Gudino APRN Primary Care Provider Reason for Visit Reason Onset Date Comments Medication Refill 09/13/2018 Encounter Details Date Type Department Care Team Description 09/13/2018 Refill Psychiatry and Behavioral Juan R Pearl, [place] [address] Social History Tobacco Use Types Packs/Day [...] TH Visit (TeleHealth) Psychiatry Ashtyn Joseph APRN [facility] [address] [place], [place] [address] (Wo rk) documented as of this encounter Visit Diagnoses Not on filedocumented in this encounter Care Teams Crate Maker Relationship Specialty Start Date End Date Virginie Gudino APRN PCP - General Family Medicine 06/16/18 [place] [address] documented as of this encounter
--- OUTSIDE RECORDS SUMMARY | 2022-05-26 22:00 | XMS_ITS | Encounter Summary ---
:1965 Author Organization [place] [address] Care Team Providers Name Role Phone Virginie Gudino APRN Primary Care Provider Encounter Details Date Type Department Care Team Description 03/09/2019 Telephone Psychiatry and Behavioral Zofia Webber [place] [address] [place] [phone] Social History Tobacco Use Types Packs/Day Years Used Date Never Smoker Smokeless Tobacco: Never Used Alcohol Use Standard Drinks/Week Comments No 0 (1 standard drink = 0.6 oz pure alcoho l) Sex Assigned at Date Recorded Female 02/11/2021 8:25 PM EDT documented as of this encounter Miscellaneous Notes Telephone Encounter - Zofia Howard MD - 03/09/2019 4:59 PM EDT Received notification from clinic staff re: pt's responses to questionnaire, in particular answeringseveral days on the Would be better off part of PHQ9. Primary provider not in clinic today.Called pt at [phone]. Pt laughs and dismisses the concern. I've been doing better actually. Explains that the weather has gotten to her but that she was able to get out today, which helped her feel better. Denies feeling unsafe or need for hospitalization. Denies SI or HI. Agreed to pass notification of pt's answers to Dr. Villalobos and to request that she reach out to pt re: date of follow up,currently scheduled for March. documented in this encounter Plan of Treatment Upcoming Encounters Date Type Specialty Care Team Description 06/30/2022 TH Visit (TeleHealth) Psychiatry Ashtyn Joseph APRN [facility] [place], [place] [address] (Wo rk) documented as of this encounter Visit Diagnoses Not on filedocumented in this encounter Care Teams Director Of Safety Relationship Specialty Start Date End Date Virginie Gudino APRN PCP - General Family Medicine 06/16/18 [place] [address] documented as of this encounter
--- OUTSIDE RECORDS SUMMARY | 2022-05-26 22:00 | XMS_ITS | Encounter Summary ---
:1965 Author Organization [facility] [place] [address] Care Team Providers Name Role Phone None Primary Care Provider Unavailable Encounter Details Date Type Department Care Team Description 08/24/2017 Office Visit Psychiatry and Laura Villalobos affective Behavioral Health at , MD disorder, remission [facility] status unspecified [facility] [address] [place] [id number] [phone] Social History Tobacco Use Types Packs/Day Years Used Date Never Smoker Alcohol Use Standard Drinks/Week Comments No 0 (1 standard drink = 0.6 oz pure alcoho l) Sex Assigned at Date Recorded Female 02/11/2021 8:25 PM EDT documented as of this encounter Last Filed Vital Signs Vital Sign Reading Time Taken Comments Blood Pressure 128/73 08/24/2017 10:24 AM EDT Pulse 52 08/24/2017 10:24 AM EDT Temperature - - Respiratory Rate - - Oxygen Saturation - - Inhaled Oxygen Concentration - - Weight 85.3 kg (188 lb) 08/24/2017 10:24 AM EDT Height 167.6 cm (5' 6) 08/24/2017 10:24 AM EDT Body Mass Index 30.34 08/24/2017 10:24 AM EDT documented in this encounter Progress Notes Demetrius Deng MD - 08/24/2017 10:30 AM EDT PSYCHIATRY TEACHING PHYSICIAN INVOLVEMENT Location: Adult Psychiatry Medication [facility], [facility] Attending Physician: Demetrius Deng MD Resident name: Laura Villalobos MD I saw and evaluated the patient with Dr Villalobos. Please see her note for details. I reviewed the patient's history during the visit and I agree with the details as written. My exam confirms the resident's findings. The assessment and plan were formulated in discussion with me and I agree with them as documented. Major issues addressed/discussed: Shireen Silva is a 52 y.o. female with h/o bipolar disorder. Doing quite well - now off Latuda. Volunteering. No SI aside from rare, fleeting passive thoughts. Has crisis numbers and would call if necessary. No med changes today. Lab Results Component Value Date LITHIUM 0.75 08/24/2017 NA 144 08/24/2017 BUN 15 08/24/2017 CREATININE 0.77 08/24/2017 TSH 1.01 04/17/2015 WBC 6.35 04/06/2014 DEMETRIUS DENG MD Laura Villalobos MD - 08/24/2017 10:30 AM EDT ESTABLISHED ADULT PATIENT OFFICE VISIT NOTE Time Spent: 60 min Attendee(s): Ms. Silva This patient was seen with Dr. Demetrius Deng See her note for confirmatory and/or revisionary documentation. HISTORY Chief Complaint: Shireen Silva is a 52 y.o. Female presents today for medication management/follow up HPI: Ms. Silva reports she is doing ok - she reports she got frustrated with taking the latuda. Shelowered the dose and didn't notice any effects, and then stopped taking the medication about a week ago. She reports she noticed her anxiety was worse around the time she stopped taking it - she also had some anger, and was feeling nausa - she wasn't sure if it was PMS. She reports she dad panic attack a day or two after stopping it. She feels overall her anxiety is a little more increased. She reports her stomach is still a little off, today not too bad. She reports she feels a lot better not taking the medication (latuda). She doesn't miss the medication which she had to take at night because it made her drowsy, also had to take it with food When asked about depression, she reports it's ok - she reports there are other factors, situational type stuff such as the recent of one of her son's friends. Overall she reports her mood is a little better. Seeing therapist every two weeks - she reports seeing the therapist more often is a good change. Concentration and energy are so-so - she has been doing a lot of yard work - weeding, cutting back the garden - a lot of perennials. Had just started volunteering around the time of the last session - she reports she is volunteering once a week. She reports she has intermittent thoughts about not being here, and that no one would miss her per patient. She reports she had these thoughts more around the time of stopping the latuda. No SI today. She reports her sons are doing good. She is still taking lithium, 300/450. She takes ambien - every night No zyprexa or ativan recently. Most recent PHQ9: PHQ9 08/19/2017 Little interest or pleasure Several days Down, depressed, hopeless Several days Trouble sleeping - Tired or no energy - Poor appetite or overeating - Feeling like a failure - Trouble concentrating (newspaper) - Moving or speaking slowly - Would be better off - PHQ9 Scores - Current Medications: Current Outpatient Prescriptions Medication Sig Dispense Refill ??? LORazepam (ATIVAN) 0.5 mg Tablet Take 1 tablet by mouth every 6 hours as needed (panic attacks).5 tablet 0 ??? zolpidem (AMBIEN) 5 mg Tablet Take 0.5-1 tablets by mouth nightly as needed for Sleep. 30 tablet1 ??? lithium (LITHOBID) 300 mg Tablet Sustained Release TAKE TWO TABLETS BY MOUTH EVERY MORNING AND THREE TABLETS EVERY EVENING 150 tablet 3 ??? cetirizine (ZYRTEC) 10 mg tablet Take 10 mg by mouth daily. Reported on 03/23/2017 Indications: Seasonal Allergic Rhinitis ??? pseudoephedrine (SUDAFED) 30 mg tablet Take 30 mg by mouth every 4 hours as needed. Reported on 03/23/2017 ??? calcium carbonate (TUMS) 200 mg calcium (500 mg) chewable tablet Take 1 tablet by mouth daily asneeded. ??? multivitamin (THERAGRAN) tablet Take 1 tablet by mouth daily. ??? lurasidone 20 mg Tablet Take 1 tablet by mouth nightly. Take with food. (Patient not taking: Reported on 08/24/2017) 30 tablet 1 ??? OLANZapine (ZYPREXA) 2.5 mg Tablet Take 1 tablet by mouth nightly as needed (diana). (Patient not taking: Reported on 03/23/2017) 5 tablet 0 ??? UNABLE TO FIND Reported on 03/23/2017 No current facility-administered medications for this visit. Pertinent Medication Side Effects: Denies feeling of resltessness PFSH: () Past Medical/Psychiatric History: no interval change No psychiatric hospitalizations. Per Dr. Wolfe's note 05/12/17: Past medication trials: ?Citalopram ?Venlafaxine ?Fluoxetine ?Bupropion ?Risperidone ?Trivoli (current at 600 mg and 900 mg daily) ?Oxcarbazepine ?Clonazepam ?Lorazepam ?Zolpidem (current at 5 mg nightly PRN insomnia) ?Eszopiclone Lurasidone Family Psychiatric and Medical History: no interval change Social History: Son is entering senior year which she reports is exciting. 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 EXAM [05/08/14 bullets (incl VS)] Constitutional System ? Vital Signs: Blood pressure 128/73, pulse 52, height 167.6 cm (5' 6), weight 85.3 kg (188 lb). Musculoskeletal System ? Muscle Strength/Tone (note atrophy, abnormal movements): no abnormalities noted ? Gait and Station: [facility] Psychiatric System ? General Appearance/Behavior: female patient, casually/appropriately groomed/dressed, interactive/cooperative with socially appropriate mannerisms ? Speech: normal volume/rate/prosody ? Thought Process: linear/coherent and goal-directed ? Associations: tight ? Abnormal Thoughts and Perceptions / Thought Content: Homicidality / Violent Thoughts: none reported/elicited Suicidality: She denies current thoughts of self harm Hallucinations: none reported/elicited Delusions: none reported/elicited Obsessions: none reported/elicited ? Judgment and Insight: fair ? Mood & Affect: a little better/affect is calm, cooperative, cheerful, bright and smiling at times ? Orientation: intact ? Attention/Concentration: alert/attentive and without need for redirection ? Memory: grossly intact to recent/remote events ? Language: fluent ? Fund of Knowledge: average Psychotherapeutic Interventions and Response: n/a MEDICAL DECISION MAKING ASSESSMENT: Shireen Silva is a 52 y.o. Female with hx of bipolar disorder presenting for medicationmanagement/follow up. Overall she seems to be doing well. She reports since the last appointment shestopped taking latuda - it perhaps caused a worsening in mood for a few days but she now reports feeling better not taking the latuda. She has also started to see her therapist more which seems like a good chance. There are no acute safety concerns - she denies thoughts of self harm. She reports some intermittent thoughts of passive SI (thoughts about it being better off not being here) - she reportsthis was particularly when she stopped latuda. She denies thoughts of self harm today. Her most recent lithium level was .75, drawn today prior to her appointment. PLAN: - Pt to continue lithobid sustained release 600 mg daily and 900 mg QHS - Pt to Continue ambien with a potential goal of one day decreasing this medication if appropriate - lithium level 0.75 on - RTC in approximately 2 month or sooner PRN -Continue other medications without adjustment Patient Instruction/Education provided: Patient provided verbal instructions regarding treatment plan. Patient understands the plan? Yes documented in this encounter Plan of Treatment Upcoming Encounters Date Type Specialty Care Team Description 06/30/2022 TH Visit (TeleHealth) Psychiatry Ashtyn Joseph, JUNIOR ACCOUNT MANAGER [facility] [place], [place] [address] (Wo rk) documented as of this encounter Visit Diagnoses Diagnosis Bipolar affective disorder, remission [facility] unspecified documented in this encounter Care Teams Electron Beam Welder Setter Relationship Specialty Start Date End Date None PCP - General 05/11/17 06/15/18 None documented as of this encounter
--- OUTSIDE RECORDS SUMMARY | 2022-05-26 22:00 | XMS_ITS | Encounter Summary ---
:1965 Author Organization [facility] [place] [address] Care Team Providers Name Role Phone MariettaVirginie ventura DANNA Primary Care Provider Encounter Details Date Type Department Care Team Description 04/07/2019 Laboratory Appointment Lab 3L [facility] High risk medication [facility] [place] [id number] Social History Tobacco Use Types Packs/Day Years [...] TH Visit (TeleHealth) Psychiatry Ashtyn Joseph APRN [facility] [address], [place] [address] (Wo rk) documented as of this encounter Procedures Procedure Name Priority Date/Time Associated Diagnosis Comme nts T3 TOTAL Routine 04/07/2019 11:27 AM High risk medication Results for this EDT use procedure are i n the results section. TSH Routine 04/07/2019 11:27 AM High risk medication Results for this EDT use procedure are i n the results section. T4, FREE Routine 04/07/2019 11:27 AM High risk medication Results for this EDT use procedure are i n the results section. LITHIUM LEVEL Routine 04/07/2019 11:27 AM High risk medication Results for this EDT use procedure are i n the results section. BASIC METABOLIC Routine 04/07/2019 11:27 AM High risk medicati on Results for this PANEL (NON-FASTING) EDT use procedur e are in the results section. documented in this encounter Results T3 Total (04/07/2019 11:27 AM EDT) P athologist Signature T3, Total 82 75 - 170 ANISH BENÍTEZCOCK ng/dL [facility] Specimen Anatomical Collection Method Collection Time Receive d Time (Source) Location / / Volume Laterality Blood specimen 04/07/2019 11:27 9 (specimen) AM EDT 11:34 AM EDT Resulting Agency Comment Spec In Lab Deonte Mauro MD CHEMISTRY ORDERABLES Performing Organization Address City/[facility]/ZIP Code Phon e Number [address] TSH (04/07/2019 11:27 AM EDT) P athologist Signature TSH 1.74 0.27 - 4.20 ANISH MUSTAFA mcIU/mL [facility] Specimen Anatomical Collection Method Collection Time Receive d Time (Source) Location / / Volume Laterality Blood specimen 04/07/2019 11:27 9 (specimen) AM EDT 11:34 AM EDT Resulting Agency Comment Spec In Lab Deonte Mauro MD CHEMISTRY ORDERABLES Performing Organization Address City/[facility]/ZIP Code Phon e Number [address] T4, free (04/07/2019 11:27 AM EDT) P athologist Signature Free T4 1.13 0.93 - 1.70 ANISH HERNANDEZMOON ng/dL [facility] Specimen Anatomical Collection Method Collection Time Receive d Time (Source) Location / / Volume Laterality Blood specimen 04/07/2019 11:27 9 (specimen) AM EDT 11:34 AM EDT Resulting Agency Comment Spec In Lab Deonte Mauro MD CHEMISTRY ORDERABLES Performing Organization Address City/[facility]/ZIP Code Phon e Number [address] [employer] level (04/07/2019 11:27 AM EDT) athologist Signature [employer] Lvl 0.89 <=1.20 [facility] mmol/L [facility] Comment: Therapeutic level for bipolar depression : 0.60-1.20 mmol/L Action Level: ?? Acute toxicity: ?>4.00 mmol/L ?? Chronic toxicity: ??>1.50 mmol/L Values greater than or equal to the acti on level necessitate clinical intervention. ??Values less than this le raeann may necessitate intervention based on clinical condition of the patient. Ref: ??Goldfrank? s Toxicologic Emergencies 6th ed 1997; p. 967 Specimen Anatomical Collection Method Collection Time Receive d Time (Source) Location / / Volume Laterality Blood specimen 04/07/2019 11:27 9 (specimen) AM EDT 11:34 AM EDT Resulting Agency Comment Spec In Lab Deonte Mauro MD CHEMISTRY ORDERABLES Performing Organization Address City/State/[place] [address] (ABNORMAL) Basic Metabolic Panel (non-fasting) (04/07/2019 11:27 AM EDT) athologist Signature Glucose Lvl 114 65 - 199 [facility] mg/dL [facility] Comment: Diabetes: >=200 mg/dL plus symp toms BUN 21 (H) 8 - 18 mg/dL [facility] Creatinine 0.83 0.70 - 1.20 mg/dL [facility] Sodium 142 135 - 145 mmol/L [facility] Potassium 3.9 3.5 - 5.0 mmol/L [facility] Comment: Please note: ??Patients with WBC >100,00 0 may have falsely elevated Potassium levels. ??For accurate Potassium quantif ication in these patients send serum separator tube (gold top) for subsequent determinations. ??Contact the Clinical Chemistry Laboratory if there are any qu estions. Chloride 105 98 - 107 mmol/L [facility] CO2 27 22 - 31 mmol/L [facility] Anion Gap 10 5 - 15 mmol/L [facility] Calcium 10.4 8.5 - 10.5 mg/dL [facility] Estimated GFR 82 >=60 mL/min/1.73 m?? [facility] Comment: The eGFR was calculated using the CKD-EP I equation. As with all creatinine based estimates of kidney function, eGFR values calculated with the CKD-EPI equation are not accurate in patients wi th acute kidney failure, extremes of body mass or the acutely ill. [email or web address] eGFR 95 >=60 mL/min/1.73 m?? [facility] Comment: The eGFR was calculated using the CKD-EP I equation. As with all creatinine based estimates of kidney function, eGFR values calculated with the CKD-EPI equation are not accurate in patients wi th acute kidney failure, extremes of body mass or the acutely ill. [email or web address] Specimen Anatomical Collection Method Collection Time Receive d Time (Source) Location / / Volume Laterality Blood specimen 04/07/2019 11:27 9 (specimen) AM EDT 11:34 AM EDT Resulting Agency Comment Spec In Lab Deonte Mauro MD CHEMISTRY ORDERABLES Performing Organization Address City/State/[place] [address] documented in this encounter Visit Diagnoses Diagnosis High risk medication use Encounter for long-term (current) use of other medications documented in this encounter Care Teams Clinical Law Professor Relationship Specialty Start Date End Date Virginie Gudino APRN PCP - General Family Medicine 06/16/18 [place] [address] documented as of this encounter
--- OUTSIDE RECORDS SUMMARY | 2022-05-26 22:00 | XMS_ITS | Encounter Summary ---
:1965 Author Organization [facility] [place] [address] Care Team Providers Name Role Phone None Primary Care Provider Unavailable Reason for Visit Reason Comments Bipolar Disorder Encounter Details Date Type Department Care Team Description 05/10/2018 Office Visit Psychiatry and Laura Villalobos affective Behavioral Health andrew Mar MD disorder, remission [facility] status unspecified [facility] [address] PS[facility] [place] [phone] Social History Tobacco Use Types Packs/Day Years Used Date Never Smoker Smokeless Tobacco: Never Used Alcohol Use Standard Drinks/Week Comments No 0 (1 standard drink = 0.6 oz pure alcoho l) Sex Assigned at Date Recorded Female 02/11/2021 8:25 PM EDT documented as of this encounter Last Filed Vital Signs Vital Sign Reading Time Taken Comments Blood Pressure 115/60 05/10/2018 10:11 AM EDT Pulse 52 05/10/2018 10:11 AM EDT Temperature - - Respiratory Rate 18 05/10/2018 10:11 AM EDT Oxygen Saturation - - Inhaled Oxygen Concentration - - Weight 76.2 kg (168 lb) 05/10/2018 10:11 AM EDT Height 167.6 cm (5' 5.98) 05/10/2018 10:11 AM EDT Body Mass Index 27.13 05/10/2018 10:11 AM EDT documented in this encounter Progress Notes Laura Villalobos MD - 05/10/2018 10:00 AM EDT ESTABLISHED ADULT PATIENT OFFICE VISIT NOTE Time Spent: 30 min Attendee(s): Ms. Silva This patient was seen with Dr. Demetrius Deng See her note for confirmatory and/or revisionary documentation. HISTORY Chief Complaint: Shireen Silva is a 53 y.o. Female presents today for medication management/follow up HPI: She reports her mood is a bit more depressed per patient since her most recent appointment. She reports she feels more overwhelmed and that there is always something per patient - son recent graduated. is helping more. GI issue is about the same per patient. Feels tired and unmotivated but helping has made a difference. 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 - she is using ambien 5 mg pretty much every night per patient - most recent prescription came in smaller pills which are harder to break so she has been taking a full tablet. She is taking it nightly now from anxiety and having a hard time sleeping. She is going to therapy - her therapy is moving so she is looking into some options. She reports it is going ok. No ativan or zyprexa recently in the past few months. She is sleeping 6 hours per night which is herusual. She reports per thoughts of hurting herself she says it's at the usual per patient which is at thesame level as at the last appointment. Patient reports per patient could do - she reports she wouldn't intent to to them. she reports it is at the same level as at her most recent appointment. She denies intent or plan to harm herself. She reports she would call emergency services if needed, has thecard on her refrigerator, could also call 911 or go to the ED. 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 Likes baseball. Alcohol: drinks alcohol 28 out of 30 days, 2-3 drinks at a time. Up from most recent visit. Cigarettes: no smoking Drugs: no drugs, no marijuana. Most recent PHQ9: PHQ9 05/07/2018 Little interest or pleasure More than half the days Down, depressed, hopeless More than half the days Trouble sleeping Not at all Tired or no energy More than half the days Poor appetite or overeating Not at all Feeling like a failure Several days Trouble concentrating (newspaper) Several days Moving or speaking slowly Not at all Would be better off Several days PHQ9 Scores 9 (Mild Depression) Current Medications: only mental health medications reviewed ??? zolpidem (AMBIEN) 5 mg QHS ??? lithium (LITHOBID) sustained release 600 mg daily and 900 mg QHS ??? LORazepam (ATIVAN) 0.5 mg Tablet - hasn't used it recently ??? OLANZapine (ZYPREXA) 2.5 mg Tablet - hasn't used it recently Pertinent Medication Side Effects: Denies feeling of resltessness PFSH: () Per chart: Reviewed and added to hx on 03/22/18: No psychiatric hospitalizations. No history of suicide attempt. Hx of self harm: cutting when she was in her 30's, maybe once or twice in the past few years - when depressed after a manic attack was bulk of it. Maybe has cut once in the past couple of years as of appointment 03/22/18. Per Dr. 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 Vital Signs: Blood pressure 115/60, pulse 52, resp. rate 18, height 167.6 cm (5' 5.98), weight 76.2 kg (168 lb). Musculoskeletal System ? Muscle Strength/Tone (note atrophy, abnormal movements): no abnormalities noted ? Gait and Station: WNL Psychiatric System ? General Appearance/Behavior: female patient, casually/appropriately groomed/dressed, interactive/cooperative with socially appropriate mannerisms ? Speech: normal volume/rate/prosody ? Thought Process: linear/coherent and goal-directed ? Associations: tight ? Abnormal Thoughts and Perceptions / Thought Content: Homicidality / Violent Thoughts: none reported/elicited Suicidality: She denies current intent or plan to self harm. See above - patient reports what sounds like passive SI at times. Hallucinations: none reported/elicited Delusions: none reported/elicited Obsessions: none reported/elicited ? Judgment and Insight: fair ? Mood & Affect: she reports her mood has been lower/affect is calm, cooperative ? Orientation: intact ? Attention/Concentration: alert/attentive and without need for redirection ? Memory: grossly intact to recent/remote events ? Language: fluent ? Fund of Knowledge: average Psychotherapeutic Interventions and Response: n/a MEDICAL DECISION MAKING ASSESSMENT: Shireen Silva is a 53 y.o. Female with hx of bipolar disorder presenting for medicationmanagement/follow up. Overall she seems to be feeling a bit lower in terms of mood She does not wantto make medication changes today. There are no acute safety concerns - the patient does reports someintermittent thoughts of harming herself however she reports these thoughts have not increased, and she denies intent or plan to harm herself. She reports she would reach out for help if needed. She reports she would like to continue her current medication regimen. PLAN: - Pt to continue lithobid sustained release 600 mg daily and 900 mg QHS - Pt to continue ambien 5 mg QHS - lithium level 0.75 on 08/24/17, ordered lithium labs today - RTC in approximately 5 months or sooner PRN Patient Instruction/Education provided: Patient provided verbal instructions regarding treatment plan. Patient understands the plan? Yes Demetrius Deng MD - 05/10/2018 10:00 AM EDT PSYCHIATRY TEACHING PHYSICIAN INVOLVEMENT Location: [facility], [address] Attending Physician: Demetrius Deng MD Resident name: [...] Major issues addressed/discussed: Shireen Silva is a 53 y.o. Female with hx of bipolar disorder presenting for medication management/follow up. Feeling a little lower in terms of mood. Does not want to make a medication change today but we suggested checking lithium level to see if she is in the therapeutic range, as a dose increase may be helpful. No SI or HI. No substance abuse. DEMETRIUS DENG MD documented in this encounter Plan of Treatment Upcoming Encounters Date Type Specialty Care Team Description 06/30/2022 TH Visit (TeleHealth) Psychiatry Ashtyn Joseph, REALTY SPECIALIST [facility] [place], [place] [address] (Wo rk) documented as of this encounter Visit Diagnoses Diagnosis Bipolar affective disorder, remission [facility] unspecified documented in this encounter Care Teams Farebox Repairer Relationship Specialty Start Date End Date None PCP - General 05/11/17 06/15/18 None documented as of this encounter
--- OUTSIDE RECORDS SUMMARY | 2022-05-26 22:00 | XMS_ITS | Encounter Summary ---
:1965 Author Organization [facility] [place] [address] Care Team Providers Name Role Phone None Primary Care Provider Unavailable Encounter Details Date Type Department Care Team Description 03/22/2018 Office Visit Psychiatry and Laura Villalobos affective Behavioral Health at , MD disorder, remission [facility] status unspecified [facility] [address] PSY[facility]ATRY [place] [phone] Social History Tobacco Use Types Packs/Day Years Used Date Never Smoker Alcohol Use Standard Drinks/Week Comments No 0 (1 standard drink = 0.6 oz pure alcoho l) Sex Assigned at Date Recorded Female 02/11/2021 8:25 PM EDT documented as of this encounter Progress Notes Demetrius Deng MD - 03/22/2018 9:30 AM EDT PSYCHIATRY TEACHING PHYSICIAN INVOLVEMENT Location: Adult Psychiatry Medication Clinic, [facility] Attending Physician: Demetrius Deng MD Resident [...] 52 y.o. female with h/o bipolar disorder. Continues to do well. Stable on her current meds. No med SE. No SI or HI. No substance abuse. No med changes today. Lab Results Component Value Date LITHIUM 0.75 08/24/2017 NA 144 08/24/2017 BUN 15 08/24/2017 CREATININE 0.77 08/24/2017 TSH 1.01 04/17/2015 WBC 6.35 04/06/2014 DEMETRIUS DENG MD Laura Villalobos MD - 03/22/2018 9:30 AM EDT ESTABLISHED ADULT PATIENT OFFICE VISIT NOTE Time Spent: 30 min Attendee(s): Ms. Silva This patient was seen with Dr. Demetrius Deng See her note for confirmatory and/or revisionary documentation. HISTORY Chief Complaint: Shireen Silva is a 52 y.o. Female presents today for medication management/follow up HPI: She reports she has other health things going on with GI and that makes her depressed a lot. She reports she is on a special diet which helps. She reports overall she is feeling ok. 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 She feels she doesn't want to change medications at this time. She is going to therapy every other week. She reports it is going ok. Ambien she is using per patient sometimes - approximately every other night. She sometimes splits them in half. No ativan or zyprexa recently in the past few months. She is sleeping 6 hours per night which is herusual. She reports she has had some depressed feelings per patient here and there but she reports it hasn't been per patient overwhelming or persistent. - this is what she said last appointment and reports it is still the same. Per her report she continues to have thoughts at times such as per patient nobody would miss me or care and she sometimes thinks about things she per patient could do - she reports she wouldn't intent to to them. she reports it is at the same level as at her most recent appointment. She denies intent or plan to harm herself. She reports she would call emergency services if needed, has the card onher refrigerator, could also call 911 or go to the ED. 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 This week doing it twice this week. Likes baseball. Alcohol: drinks alcohol 10 out of 30 days, 2-3 drinks at a time - she is trying to not drink at all. Working on her therapist about drinking less. She doesn't feel she is drinking more than usual recently. Cigarettes: no smoking Drugs: no drugs, no marijuana. Most recent PHQ9: PHQ9 03/18/2018 Little interest or pleasure Several days Down, depressed, hopeless Several days Trouble sleeping - Tired or no energy - Poor appetite or overeating - Feeling like a failure - Trouble concentrating (newspaper) - Moving or speaking slowly - Would be better off - PHQ9 Scores - Current Medications: only mental health medications reviewed ??? zolpidem (AMBIEN) 5 mg Tablet - - she reports she takes it approximately every other night, mostnight she splits them in half. Very rarely maybe once a month uses a whole tablet. ??? lithium (LITHOBID) sustained release 600 mg daily and 900 mg QHS ??? LORazepam (ATIVAN) 0.5 mg Tablet - hasn't used it recently ??? OLANZapine (ZYPREXA) 2.5 mg Tablet - hasn't used it recently ??? cetirizine (ZYRTEC) 10 mg tablet ??? pseudoephedrine (SUDAFED) 30 mg tablet ??? calcium carbonate (TUMS) 200 mg calcium (500 mg) chewable tablet ??? 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 Vital Signs: There were no vitals taken for this visit. Musculoskeletal System ? Muscle Strength/Tone (note atrophy, abnormal movements): no abnormalities noted ? Gait and Station: WN Psychiatric System ? General Appearance/Behavior: female patient, casually/appropriately groomed/dressed, interactive/cooperative with socially appropriate mannerisms ? Speech: normal volume/rate/prosody ? Thought Process: linear/coherent and goal-directed ? Associations: tight ? Abnormal Thoughts and Perceptions / Thought Content: Homicidality / Violent Thoughts: none reported/elicited Suicidality: She denies current thoughts of self harm, denies intent or plan to self harm. See above - patient reports what sounds like passive SI at times. Hallucinations: none reported/elicited Delusions: none reported/elicited Obsessions: none reported/elicited ? Judgment and Insight: fair ? Mood & Affect: good per patient/affect is calm, cooperative, cheerful, bright and smiling [...] medicationmanagement/follow up. Overall she seems to be continuing to do well. She is continuing to volunteer.There are no acute safety concerns - the patient does reports some intermittent thoughts of harming h erself however she reports these thoughts have not increased, and she denies intent or plan to harm herself. She reports she would reach out for help if needed. She reports she would like to continue her current medication regimen. PLAN: - Pt to continue lithobid sustained release 600 mg daily and 900 mg QHS - Pt to continue ambien with a potential goal of one day decreasing this medication - she reports she takes it approximately every other night, usually half tab, very rarely maybe once a month uses awhole tablet. - lithium level 0.75 on 08/24/17 - RTC in approximately 2 months or sooner PRN -Continue other medications without adjustment Patient Instruction/Education provided: Patient provided verbal instructions regarding treatment plan. Patient understands the plan? Yes documented in this encounter Plan of Treatment Upcoming Encounters Date Type Specialty Care Team Description 06/30/2022 TH Visit (TeleHealth) Psychiatry Ashtyn Joseph, CRIMPER ASSEMBLER [facility] [place], [place] [address] (Wo rk) documented as of this encounter Visit Diagnoses Diagnosis Bipolar affective disorder, remission st [facility] unspecified documented in this encounter Care Teams Deployment Technician Relationship Specialty Start Date End Date None PCP - General 05/11/17 06/15/18 None documented as of this encounter
--- OUTSIDE RECORDS SUMMARY | 2022-05-26 22:00 | XMS_ITS | Encounter Summary ---
:1965 Author Organization [facility] [place] [address] Care Team Providers Name Role Phone MariettaVirginie ventura DANNA Primary Care Provider Encounter Details Date Type Department Care Team Description 06/17/2021 TH Visit Psychiatry and Laura Joseph Bipolar I disorder with depression (Primary Dx); (TeleHealth) Behavioral Health at DANNA [place] Anxiety [facility] [address] PS[facility]CHIATRY [place] [id number] 6 [id number] [phone] Social History Tobacco Use Types Packs/Day Years Used Date Never Smoker Smokeless Tobacco: Never Used Alcohol Use Standard Drinks/Week Comments No 0 (1 standard drink = 0.6 oz pure alcoho l) Sex Assigned at Date Recorded Female 02/11/2021 8:25 PM EDT documented as of this encounter Progress Notes Laura Joseph APRN - 06/17/2021 10:30 AM EDT ESTABLISHED ADULT PATIENT OFFICE VISIT NOTE Shireen Silva gave permission for and was seen for today's appointment with a Video Office Visit. During this visit they were located in [place]. Shireen Moralese is aware that for any urgent matter they cancall [phone]. Time Spent: 30 minutes Attendee(s): Shireen Moralese Identifying information: Shireen Silva is a 56 y.o. female with history of Bipolar I disorder with r/o MALVIN. She transferred to Zhanna Mistry APRN from Dr. Villalobos March 2020. She is here for ongoing follow up. Chief Complaint: here for follow up History of Present Illness: () (Quality, Severity, Duration, Timing, Context, Modifying factors, Associated S&S) Psychiatric Symptoms: Still having auditory hallucinations-music. Nothing scary and not constant Started drinking ETOH again when on vacation with family in [place]-about 3 glasses/night (Started mid-April)-started as social engagement with family though continued drinking at home Ambien-usually 5 mg at night Mood is overall 'good' and does not express concern Health Changes: Had LABS at [facility]: Li: 1.1 Na: 142 K: 4.3 Cl: 105 Co2: 28.8 Anion Gap: 8.2 BUN: 16 Cr: 1.1 Est. GFR: 51 Glucose: 100 Ca: 9.9 Total Bili: 0.5 AST: 20 ALT:34 Alk Brandi: 70 Total Protein: 6.7 Albumin: 3.9 TSH: 1.89 We reviewed symptoms of lithium toxicity in depth; she denies symptoms including: Diarrhea nausea or vomiting muscle weakness tremors Drowsiness lack of coordination twitching or spasms moderate confusion or impaired consciousness agitation confusion giddiness blurred vision ringing in the ears muscle stiffness, tightness, or pain significantly increased urine output low blood pressure Work/Life/Family Updates: Fun vacation at [place]-saw dad and older son in addition to other family Younger son has gotten a job-nights at [employer]-happy with him having a job. They have two cars-he can take one overnight. Substance Use: Alcohol-about 3 glasses/night Safety: denies SI/HI Pertinent Medication Side Effects: denied Questionnaires: PHQ9 Questionnaires Data (Clinic and Pt Entered): last 4 values PHQ-9 QUESTIONNAIRE LAST 4 VALUES (AMB) 09/03/2019 01/17/2021 02/12/2021 04/15/2021 PHQ - 9 Score (Patient) 3 (Minimal Depression) 17 (Moderately Severe Depression) 8 (Mild Depression)3 (Minimal Depression) Little interest or pleasure (Patient) Several days Nearly every day More than half the days Several days Down, depressed, hopeless (Patient) Not at all Nearly every day More than half the days Several days Trouble sleeping (Patient) Not at all Several days Not at all Not at all Tired or no energy (Patient) Several days More than half the days More than half the days Several days Poor appetite or overeating (Patient) Not at all Several days Not at all Not at all Feeling like a failure (Patient) Not at all More than half the days More than half the days Not at all Trouble concentrating (Patient) Several days More than half the days Not at all Not at all Moving or speaking slowly (Patient) Not at all Several days Not at all Not at all Would be better off (Patient) Not at all More than half the days Not at all Not at all GAD7 Questionnaires Data: last 4 values MALVIN-7 Patient Reported Responses 09/03/2019 01/17/2021 02/12/2021 04/15/2021 Nervous, anxious (Patient) Several days More than half the days Several days Several days Unable to stop worrying (Patient) Several days Several days Several days Several days Worrying about different things (Patient) Several days Several days Not at all Several days Trouble relaxing (Patient) Not at all Several days Several days Not at all Restless (Patient) Not at all Several days Not at all Not at all Easily annoyed, irritable (Patient) Not at all Several days Not at all Not at all Afraid something awful will happen (Patient) Not at all Several days Not at all Not at all Difficulty (Patient) Somewhat difficult Very difficult Somewhat difficult Somewhat difficult MALVIN-7 Score (Patient) 3 (Minimal Anxiety) 8 (Mild Anxiety) 3 (Minimal Anxiety) 3 (Minimal Anxiety) Current Medications: Current Outpatient Medications Medication Sig Dispense Refill ??? lithium CR (Lithobid) 300 mg Tablet Sustained Release TAKE 2 TABLETS BY MOUTH EVERY MORNING AND 3 TABLETS IN THE EVENING 150 tablet 5 ??? FLUoxetine (PROzac) 20 mg Capsule Take 1 capsule by mouth daily. 30 capsule 5 ??? LORazepam (Ativan) 0.5 mg Tablet Take 1 tablet by mouth every 6 hours as needed for Anxiety. 30 tablet 0 ??? zolpidem (Ambien) 5 mg Tablet Take 0.5-1 tablets by mouth nightly as needed for Sleep. 30 tablet3 ??? ferrous sulfate 324 mg (65 mg [...] hours as needed. Reported on 03/23/2017 ??? multivitamin (THERAGRAN) tablet Take 1 tablet by mouth daily. No current facility-administered medications for this visit. [...] trials: ?? Celexa ?Venlafaxine ?Fluoxetine ?Bupropion ?Risperidone ?Woolrich (current at 600 mg and 900 mg daily) ?Oxcarbazepine ?Clonazepam ?Lorazepam ?Zolpidem (current at 5 mg nightly PRN insomnia) ?Eszopiclone ?Lurasidone 2017 - felt it made her mood worse Social History: She is to Noble of about 30 years. They have 3 sons (20, 25, 27). Her is retired from state police. She is on disability for BPD1. Notes growing up in family that didn't express emotions easily she can internalize things.. Vitals (24hr Range): No data found. Musculoskeletal System: no abnormal movements Mental Status Exam: ?? Appearance: age appropriate ?? Behavior: cooperative with the interview and good eye contact ?? Speech: normal pitch, normal volume, normal rate and normal rhythm ?? Language: fluent in mongolian ?? Mood:I think I'm pretty good. ?? Affect: full ?? Thought Process: linear and logical ?? Associations: intact ?? Thought Content: denied homicidal ideation and denied suicidal ideation ?? Perception: auditory hallucinations of music, sometimes people talking. Nothing negative ?? Orientation: grossly intact by interview ?? Attention/Concentration: able to sustain focus and able to resist distraction ?? Cognition: grossly intact by interview ?? Memory: recent and remote memory grossly intact ?? Fund of Knowledge: appropriate for age and level of functioning ?? Insight: good ?? Judgment: good ?? Labs: Psychiatry Labs: Li: 1.1 Na: 142 K: 4.3 Cl: 105 Co2: 28.8 Anion Gap: 8.2 BUN: 16 Cr: 1.1 Est. GFR: 51 Glucose: 100 Ca: 9.9 Total Bili: 0.5 AST: 20 ALT:34 Alk Brandi: 70 Total Protein: 6.7 Albumin: 3.9 TSH: 1.89 Lab Results Component Value Date TSH 1.74 [...] who verbalizes depression as her baseline. She reports to be doing overall well, admitting that she is drinking 2-3 glasses of wine each night since going on vacation. We discussed the benefits of harm reduction. We also reviewedher recent labs from [facility] (she read them over our video chat as they had not been faxed to us). She denies all signs of lithium toxicity and will continue to monitor (current level 1.1); we discussed decreasing lithium dosing to 600 mg BID if needed, though will redraw labs in August. Shireen verbalizesawareness of lithium toxicity and will reach out if she has concerns. Safety Assessment: Shireen Silva denies suicidal and homicidal ideation. Protective factors include: family and community support and engaged in medical and/or mental health care. We carefully reviewed office and emergency contact info and when to contact our crisis line at . PLAN: ?? Medications instructions below: Woolrich 600 mg AM, 900 mg HS Ambien 2.5 mg-5 mg HS PRN Prozac 20 mg qd Ativan 0.5 mg PRN (last filled 10/19) ?? Additional treatment recommendations: ?? Therapy: not currently interested ?? Labs: will redraw in August Patient Instruction/Education provided: Patient provided verbal instructions regarding medication side effects, safety plan in case of feeling unsafe. Patient understands the plan? Yes Signed By: Laura Joseph APRN 06/17/2021 documented in this encounter Plan of Treatment Upcoming Encounters Date Type Specialty Care Team Description 06/30/2022 TH Visit (TeleHealth) Psychiatry Ashtyn Joseph APRN [facility] [address] [place], [place] [address] (Wo rk) documented as of this encounter Visit Diagnoses Diagnosis Bipolar I disorder with depression - [facility] Bipolar I disorder, most recent episode (or current) depressed, unspecified Anxiety Anxiety state, unspecified documented in this encounter Care Teams Pcat Instructor Relationship Specialty Start Date End Date Virginie Gudino APRN PCP - General Family Medicine 06/16/18 [address] [place] [address] documented as of this encounter
--- OUTSIDE RECORDS SUMMARY | 2022-05-26 22:00 | XMS_ITS | Encounter Summary ---
:1965 [place] [address] Care Team Providers Name Role Phone MariettaVirginie ventura DANNA Primary Care Provider Encounter Details Date Type Department Care Team Description 05/21/2020 TH Visit Psychiatry and Zhanna Mistry, Bipolar affective disorder, remission status unspecified; (TeleHealth) Behavioral Health at [facility] [place] [address] [place] [address] [place], [place] [phone] (Work) [phone] Social History Tobacco Use Types Packs/Day Years Used Date Never Smoker Smokeless Tobacco: Never Used Alcohol Use Standard Drinks/Week Comments No 0 (1 standard drink = 0.6 oz pure alcoho l) Sex Assigned at Date Recorded Female 02/11/2021 8:25 PM EDT documented as of this encounter Progress Notes Zhanna Mistry APRN - 05/21/2020 8:30 AM EDT ESTABLISHED ADULT PATIENT OFFICE VISIT NOTE Shireen Silva gave permission for and was seen for today's appointment with a Telephone Office Visit. During this visit they were located in [place]. Shireen Silva is aware that for any urgent matter theycan call [phone]. Time Spent: 25 min Attendee(s): patient Identifying information: Shireen Silva is a 54 y.o. female with history of Bipolar I disorder with R/O MALVIN. She is a transfer from Dr. Villalobos. She is here for ongoing follow up. Chief Complaint: Following up regarding medications History of Present Illness: () (Quality, Severity, Duration, Timing, Context, Modifying factors, Associated S&S) Shireen Silva is a 55 y.o. female Psychiatric Symptoms: ?? Mood: more depressed at 05/09 ?? Continues to hear music that doesn't bother her. ?? Anxiety: 05/09 ?? Sleep: Getting 5-6 hours, notes that she snores. He thinks she has sleep apnea. She wearsa bracelet that reveals she doesn't sleep well. She will ask PCP to order a sleep study. ?? Appetite: eating well ?? Energy: doesn't feel like doing much ?? Medication compliance: taking everyday ?? Medication side effects: none ?? Lorazepam:rare but does use when she has panic attacks ( used last night) ?? No lithium side effects Health Changes: ?? Walking and running regularly ?? We review no recent TSH, she will have PCP order when doing apt Work/Life/Family Updates: ?? 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 Drinking 2-3 glasses wine at 5PM, helps her anxiety, wants to cut back Safety: Denies SII/HI intent or plan Questionnaires: PHQ9 Questionnaires Data (Clinic and Pt Entered): last 4 values PHQ-9 QUESTIONNAIRE LAST 4 VALUES (AMB) 04/12/2019 06/24/2019 08/04/2019 09/03/2019 PHQ - 9 Score (Patient) 10 (Moderate Depression) 5 (Mild Depression) 5 (Mild Depression) 3 (Minimal Depression) Little interest or pleasure (Patient) Several days Several days Several days Several days Down, depressed, hopeless (Patient) More than half the days Several days Several days Not at all Trouble sleeping (Patient) Several days Not at all Not at all Not at all Tired or no energy (Patient) Several days Several days Several days Several days Poor appetite or overeating (Patient) Several days Not at all Not at all Not at all Feeling like a failure (Patient) More than half the days Several days Several days Not at all Trouble concentrating (Patient) Several days Several days Several days Several days Moving or speaking slowly (Patient) Not at all Not at all Not at all Not at all Would be better off (Patient) Several days Not at all Not at all Not at all GAD7 Questionnaires Data: last 4 values MALVIN-7 Patient Reported Responses 04/12/2019 06/24/2019 08/04/2019 09/03/2019 Nervous, anxious (Patient) Nearly every day Several days Several days Several days Unable to stop worrying (Patient) Nearly every day Several days Several days Several days Worrying about different things (Patient) Nearly every day Several days Several days Several days Trouble relaxing (Patient) More than half the days Several days Several days Not at all Restless (Patient) Not at all Not at all Not at all Not at all Easily annoyed, irritable (Patient) Several days Not at all Not at all Not at all Afraid something awful will happen (Patient) More than half the days Not at all Not at all Not at all Difficulty (Patient) Very difficult Somewhat difficult Somewhat difficult Somewhat difficult MALVIN-7 Score (Patient) 14 (Moderate Anxiety) 4 (Minimal Anxiety) 4 (Minimal Anxiety) 3 (Minimal Anxiety) Current Medications: Current Outpatient Medications Medication Sig Dispense Refill ??? lithium CR (Lithobid) 300 mg Tablet Sustained Release TAKE 2 TABLETS BY MOUTH EVERY MORNING AND 3 TABLETS IN THE EVENING ( complete level at [facility]) 150 tablet 5 ??? FLUoxetine (PROzac) 20 mg Capsule Take 1 capsule by mouth daily. 30 capsule 5 ??? LORazepam (Ativan) 0.5 mg Tablet Take 1 tablet by mouth every 6 hours as needed for Anxiety. 30 tablet 0 ??? zolpidem (Ambien) 5 mg Tablet Take 0.5-1 tablets by mouth nightly as needed for Sleep. 30 tablet3 ??? bismuth subsalicylate (PEPTO-BISMOL) 262 mg/15 mL Suspension Take 15 mLs by mouth every 6 hours as needed for Indigestion. ??? cetirizine (ZYRTEC) 10 mg tablet Take [...] this visit. Pertinent Medication Side Effects: Denies Review of Systems: CONST Feels well GI Denies NEURO PSYCH See above / control Allergies Reviewed on eD-H Past Psychiatric history and treatment: Per Dr. Villalobos transfer note 04/14/19 No history of hospitalizations Brief formulation/assessment of patient:??Shireen Silva??is a 53 y.o.??Female??with??hx of??bipolar disorder??with??a history of manic episodes (however never hospitalization),??with??mood more recently being??predominately depressed.??She has a long history of being followed on this clinic and has been on lithium for many years. She has a history of cutting, and reports she has started to cut morein the spring. She lives with her and has three sons. She is currently trying to re-engage in therapy. ?? Prior medications trials (dosage, response, side effects, adequacy of trial): ??Celexa ?Venlafaxine ?Fluoxetine ?Bupropion ?Risperidone ?Corbin (current at 600 mg and 900 mg daily) ?Oxcarbazepine ?Clonazepam ?Lorazepam ?Zolpidem (current at 5 mg nightly PRN insomnia) ?Eszopiclone ?Lurasidone 2017 - felt it made her mood worse Social History: She is to Noble of 30 years. They have 3 sons. Her 18yo and 25 yo live with her. Describes that just retired. They all have to share one car. 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 Notes growing up in family that didn't express emotions easily shecan internalize this. ?? Vitals (24hr Range): No data found. Musculoskeletal System: Not evaluated Mental Status Exam: ?? Speech: normal pitch, normal volume, normal rate and normal rhythm ?? Language: fluent in citizen of [place] ?? Mood: more anxious/depressed ?? Affect: mood-congruent ?? Thought Process: linear and logical ?? Associations: intact ?? Thought Content: denied homicidal ideation, denied suicidal ideation and no bizarre delusions ?? Perception: denied auditory hallucinations denied visual hallucinations not observed responding to internal stimuli does report to hearing muffled voices and hearing music sometimes ?? Orientation: grossly intact by interview ?? Attention/Concentration: able to sustain focus ?? Cognition: grossly intact by interview ?? Memory: recent and remote memory grossly intact ?? Fund of Knowledge: appropriate for age and level of functioning ?? Insight: good ?? Judgment: good ?? Labs: Psychiatry Labs: Date: 03/15/20 Corbin: 1.00 Creatinine: .84 BUN: 19 ( H) Calcium: 10 Formulation and Assessment: Overall Formulation: Shireen Silva is a 55 y.o. Female with a history of Bipolar I and anxiety. Shehas history of SIB and SI when more depressed. Ambien is protective for sleep. Will likely benefit from re engaging in therapy. She would like to reduce etoh use which I support, suggest slowly reducing over time and encouraged AUD treatment ?? Diagnosis: Bipolar I and anxiety NOS, alcohol use disorder CURRENT ASSESSMENT: Mood is moderately depressed/anxious. Recent labs in February WNL. We discussed it's been a year since her last TSH. With worsening depression/anxiety would benefit ensuring thyroid not contributing to symptoms. Alcohol has increased back to 2-3 glasses of wine. Never combines alcoholwith lorazepam/Ambien. Understands risks of CHILD SUPPORT AGENT depression. We discussed that alcohol could be impacting mood/anxiety/sleep. Contemplative about change. Is very open to having sleep study which I support. Her PCP will complete TSH and sleep study referral as more convenient to patient. We could consider small increase in Prozac if needed. She will outreach if would like to consider. PLAN: ?? Safety:?? reviewed office and emergency contact info ?? Medications: ?? Corbin: 600mg SR in AM and 900mg in PM ?? Prozac: 20mg PO daily ?? Ambien: 5mg daily ?? Ativan: 0.5mg PO daily PRN ( rare use does not need refill) ?? LABS: Corbin level and BMP in 6 months ( October 2020) ?? Additional treatment recommendations: consider psychotherapy, follow up with PCP about TSH and sleep study ?? Follow-up:??3 months Safety Assessment: Denies SI/HI intent or plan. SIB in the past ( in last year). None currently. No hx of SA. No psychiatric hospitalizations. Patient Instruction/Education provided: Patient provided verbal instructions regarding medication side effects, safety plan in case of feeling unsafe. Patient understands the plan? Yes Signed By: Zhanna Mistry APRN documented in this encounter Plan of Treatment Upcoming Encounters Date Type Specialty Care Team Description 06/30/2022 TH Visit (TeleHealth) Psychiatry Ashtyn Joseph APRN [facility] [address] [place], [place] [address] (Wo rk) documented as of this encounter Visit Diagnoses Diagnosis Bipolar affective disorder, remission st atus unspecified Anxiety Anxiety state, unspecified documented in this encounter Care Teams Technical Recruiter Relationship Specialty Start Date End Date Virginie Gudino APRN PCP - General Family Medicine 06/16/18 [address] [place] [address] documented as of this encounter
--- OUTSIDE RECORDS SUMMARY | 2022-05-26 22:00 | XMS_ITS | Encounter Summary ---
:1965 Author Organization [facility] [place] [address] Care Team Providers Name Role Phone None Primary Care Provider Unavailable Reason for Visit Reason Onset Date Comments Medication Refill 09/28/2017 Encounter Details Date Type Department Care Team Description 09/28/2017 Refill Psychiatry and Behavioral Elin cates, Laura Mar MD [facility] [address] [place] [address] [place] [address] [phone] (Wo rk) Social History Tobacco Use Types Packs/Day Years Used Date Never Smoker Alcohol Use Standard Drinks/Week Comments No 0 (1 standard drink = 0.6 oz pure alcoho l) Sex Assigned at Date Recorded Female 02/11/2021 8:25 PM EDT documented as of this encounter Plan of Treatment Upcoming Encounters Date Type Specialty Care Team Description 06/30/2022 TH Visit (TeleHealth) Psychiatry Ashtyn Joseph APRN [facility] [address] [place], [place] [address] (Wo rk) documented as of this encounter Visit Diagnoses Not on filedocumented in this encounter Care Teams Retail Receiving Clerk Relationship Specialty Start Date End Date None PCP - General 05/11/17 06/15/18 None documented as of this encounter
--- OUTSIDE RECORDS SUMMARY | 2022-05-26 22:00 | XMS_ITS | Encounter Summary ---
:1965 Author Organization [facility] [place] [address] Care Team Providers Name Role Phone Virginie Gudino APRN Primary Care Provider Reason for Visit Reason Onset Date Comments Medication Refill 03/12/2020 Encounter Details Date Type Department Care Team Description 03/12/2020 Refill Psychiatry and Behavioral Juan R Pearl, [place] [address] Social History Tobacco Use Types Packs/Day [...] TH Visit (TeleHealth) Psychiatry Ashtyn Joseph APRN [facility] [address] [place], [place] [address] (Wo rk) documented as of this encounter Visit Diagnoses Not on filedocumented in this encounter Care Teams Executive Communications Manager Relationship Specialty Start Date End Date Virginie Gudino APRN PCP - General Family Medicine 06/16/[address] [place] [address] documented as of this encounter
--- OUTSIDE RECORDS SUMMARY | 2022-05-26 22:00 | XMS_ITS | Encounter Summary ---
:1965 Author Organization [facility] [place] [address] Care Team Providers Name Role Phone MariettaVirginie ventura DANNA Primary Care Provider Reason for Visit Reason Comments Medication Refill Encounter Details Date Type Department Care Team Description 03/25/2019 Refill Psychiatry and Behavioral Robert Atkins MD [facility] [place] [address] [place] [address] [phone] (Wo rk) Social History Tobacco Use Types Packs/Day Years Used Date Never Smoker Smokeless Tobacco: Never Used Alcohol Use Standard Drinks/Week Comments No 0 (1 standard drink = 0.6 oz pure alcoho l) Sex Assigned at Date Recorded Female 02/11/2021 8:25 PM EDT documented as of this encounter Miscellaneous Notes Telephone Encounter - Rachel Pedroza RN - 03/25/2019 11:03 AM EDT OV 04/13/19. lab work for lithium level and thyroid levels ordered on 03/22/19 has not been drawn yet. documented in this encounter Plan of Treatment Upcoming Encounters Date Type Specialty Care Team Description 06/30/2022 TH Visit (TeleHealth) Psychiatry Ashtyn Joseph APRN [facility] [address] [place], [place] [address] (Wo rk) documented as of this encounter Visit Diagnoses Not on filedocumented in this encounter Care Teams Convenience Recycle Center Tech Relationship Specialty Start Date End Date Virginie Gudino APRN PCP - General Family Medicine 06/16/18 [address] [place] [address] documented as of this encounter
--- OUTSIDE RECORDS SUMMARY | 2022-05-26 22:00 | XMS_ITS | Encounter Summary ---
:1965 Author Organization [facility] [place] [address] Care Team Providers Name Role Phone Terese Virginie DANNA Primary Care Provider Encounter Details Date Type Department Care Team Description 10/11/2018 Office Visit Gastroenterology at [facility] Dorie Blanco Small intestinal [facility] Yg [place] [address] [facility] [phone] [place] [address] Social History Tobacco Use Types Packs/Day Years Used Date Never Smoker Smokeless Tobacco: Never Used Alcohol Use Standard Drinks/Week Comments No 0 (1 standard drink = 0.6 oz pure alcoho l) Sex Assigned at Date Recorded Female 02/11/2021 8:25 PM EDT documented as of this encounter Last Filed Vital Signs Vital Sign Reading Time Taken Comments Blood Pressure 122/63 10/11/2018 1:04 PM EST Pulse 52 10/11/2018 1:04 PM EST Temperature - - Respiratory Rate - - Oxygen Saturation - - Inhaled Oxygen Concentration - - Weight 70.8 kg (156 lb 1.6 oz) 10/11/2018 1:04 PM EST Height 167.6 cm (5' 6) 10/11/2018 1:04 PM EST Body Mass Index 25.2 10/11/2018 1:04 PM EST documented in this encounter Progress Notes Dorie Blanco RN - 10/11/2018 1:00 PM EST _25___minutes of this__30__-minute visit were spent in face to face discussion and/or counseling thepatient, regarding symptoms and treatment options as detailed below. Pt is here for follow up regarding progress with medical regimen. Positive for sibo Just finished course of Rifaximin. Her loose stools have improved. She has a stool every other day. At times stools can be hard. Using less pepto and kaopectate. Having less mucous in stools. No fecal leakage. Also, met with captain airline pilot. She is slowly expanding diet. Weight stable. No upper gi sx. No significant post-prandial sx. Pt is meeting with captain airline pilot today. Pt started Vitamin D3 supplementation two weeks ago. Will repeat blood work in few months. Pt aware. Plan: 1. Pt sx are improving. Would continue to work with captain airline pilot and expanding diet. 2. Repeat vitamin D level in a few months 3. Pt to call gi prn documented in this encounter Plan of Treatment Upcoming Encounters Date Type Specialty Care Team Description 06/30/2022 TH Visit (TeleHealth) Psychiatry Ashtyn Joseph APRN [facility] [address] [place] [address] (Wo rk) documented as of this encounter Visit Diagnoses Diagnosis Small intestinal bacterial overgrowth documented in this encounter Care Teams Burnisher Relationship Specialty Start Date End Date Virginie Gudino APRN PCP - General Family Medicine 06/16/18 [place] [address] documented as of this encounter
--- OUTSIDE RECORDS SUMMARY | 2022-05-26 22:00 | XMS_ITS | Encounter Summary ---
:1965 Author Organization [facility] [place] [address] Care Team Providers Name Role Phone Virginie Gudino APRN Primary Care Provider Reason for Visit Reason Onset Date Comments Medication Refill 07/08/2018 Encounter Details Date Type Department Care Team Description 07/08/2018 Refill Psychiatry and Behavioral Juan R Pearl[place] [address] Social History Tobacco Use Types Packs/Day [...] TH Visit (TeleHealth) Psychiatry Ashtyn Joseph APRN [facility] [address], [place] [address] (Wo rk) documented as of this encounter Visit Diagnoses Not on filedocumented in this encounter Care Teams Cold Roll Operator Relationship Specialty Start Date End Date Virginie Gudino APRN PCP - General Family Medicine 06/16/18 [place] [address] documented as of this encounter
--- OUTSIDE RECORDS SUMMARY | 2022-05-26 22:00 | XMS_ITS | Encounter Summary ---
:1965 Author Organization [facility] [address] Care Team Providers Name Role Phone Virginie Gudino APRN Primary Care Provider Reason for Visit Reason Onset Date Comments Medication Refill 08/11/2018 Encounter Details Date Type Department Care Team Description 08/11/2018 Refill Psychiatry and Behavioral Juan R Pearl, [place] [address] Social History Tobacco Use Types Packs/Day [...] APRN [facility] [address] [place], [place] [address] (Wo rk) documented as of this encounter Visit Diagnoses Not on filedocumented in this encounter Care Teams Dining Room Server Relationship Specialty Start Date End Date Virginie Gudino APRN PCP - General Family Medicine 06/16/18 [place] [address] documented as of this encounter
--- OUTSIDE RECORDS SUMMARY | 2022-05-26 22:00 | XMS_ITS | Encounter Summary ---
:1965 Author Organization [facility] [place] [address] Care Team Providers Name Role Phone MariettaVirginie ventura DANNA Primary Care Provider Encounter Details Date Type Department Care Team Description 07/26/2018 Laboratory Appointment Lab 3L Glendy Larose Diarrhea, unspecified [facility] [place] [id number] Social History Tobacco Use Types Packs/Day Years [...] (TeleHealth) Psychiatry Ashtyn Joseph APRN [facility] [address] [place], [place] [address] (Wo rk) documented as of this encounter Procedures Procedure Name Priority Date/Time Associated Comments Diagnosis HEMOGRAM Routine 07/26/2018 11:41 Diarrhea, Results for this AM EDT unspecified type procedure a re in the results section. DIFFERENTIAL, Routine 07/26/2018 11:41 Diarrhea, Results fo r this AUTOMATED AM EDT unspecified type procedure a re in the results section. IRON AND TIBC Routine 07/26/2018 11:41 Diarrhea, Results fo r this AM EDT unspecified type procedure a re in the results section. VITAMIN D, 25-HYDROXY Routine 07/26/2018 11:41 Diarrhea, Re sults for this AM EDT unspecified type procedure a re in the results section. CBC (WITH DIFF) Routine 07/26/2018 11:41 Diarrhea, AM EDT unspecified type TSH Routine 07/26/2018 11:41 Diarrhea, Results for this AM EDT unspecified type procedure a re in the results section. FERRITIN Routine 07/26/2018 11:41 Diarrhea, Results for this AM EDT unspecified type procedure a re in the results section. VITAMIN B12 Routine 07/26/2018 11:41 Diarrhea, Results for this AM EDT unspecified type procedure a re in the results section. COMPREHENSIVE Routine 07/26/2018 11:41 Diarrhea, Results fo r this METABOLIC PANEL AM EDT unspecified type procedur e are in (NON-FASTING) the results section. documented in this encounter Results Differential, Automated (07/26/2018 11:41 AM EDT) athologist Signature Neutrophils % 69.9 % [facility] Neutr Abs (ANC) 5.14 1.70 - [facility] 6.10 [facility] x10(3)/[facility] LABORATORY Lymphocytes % 20.8 % [facility] Lymphocytes Abs 1.5 0.9 - 3.2 [facility] x10(3)[facility] LABORATORY Monocytes % 7.8 % [facility] Monocyte Abs 0.6 0.3 - 0.9 [facility] x10(3)[facility] LABORATORY Eosinophils % 0.5 % [facility] Eosinophils Abs 0.0 0.0 - 0.4 [facility] x10(3)/[facility] LABORATORY Basophils % 0.7 % [facility] Basophils Abs 0.0 0.0 - 0.1 [facility] x10(3)/[facility] LABORATORY Immature Gran % 0.30 % [facility] Comment: Immature granulocytes(IG's)percentage an d absolute count will include metamyelocytes, myelocytes, and promyelo cytes. Blood smears from CBCs yielding IG's will be scanned manually for concor dance. If this scan disagrees with the automated IG or if promyelocytes are not ed, a manual differential will be performed. Julia Gran Abs 0.02 0.00 - 0.04 x10(3)/[facility] Specimen Anatomical Collection Method Collection Time Receive d Time (Source) Location / / Volume Laterality Blood specimen 07/26/2018 11:41 8 (specimen) AM EDT 11:56 AM EDT Resulting Agency Comment Spec In Lab Dorie Blanco APRN HEMATOLOGY ORDERABLES Performing Organization Address City/State/[place] [address] Hemogram (07/26/2018 11:41 AM EDT) P athologist Signature WBC 7.4 4.0 - 9.5 [facility] x10(3)/[facility] LABORATORY RBC 4.81 4.00 - [facility] 5.21 [facility] x10(6)/[facility]ORY Hemoglobin 14.4 11.7 - [facility] 15.[facility] gm/dL [facility] Hematocrit 44.3 35.7 - [facility] 45.8 % [facility] MCV 92.1 82.6 - [facility] 94.4 [facility] LABORATORY MCH 29.9 27.1 - [facility] 32.0 pg [facility] MCHC 32.5 31.7 - [facility] 35.0 gm/dL [facility] Platelets 320 145 - 357 [facility] x10(3)/[facility] LABORATORY RDWSD 45.1 37.0 - [facility] 46.0 [facility] LABORATORY RDWCV 13.3 11.5 - [facility] 14.1 % [facility] MPV 10.5 7.6 - 12.9 [facility] LABORATORY nRBC % Auto 0.0 % [facility] nRBC Abs Auto 0.000 0.000 - [facility] 0.000 [facility] x10(3)/[facility] LABORATORY Specimen Anatomical Collection Method Collection Time Receive d Time (Source) Location / / Volume Laterality Blood specimen 07/26/2018 11:41 8 (specimen) AM EDT 11:56 AM EDT Resulting Agency Comment Spec In Lab Mavisrafael GuzmanLatisha ORACLE PROGRAMMER HEMATOLOGY ORDERABLES Performing Organization Address City/[facility]/ZIP Code Phon e Number [address] TSH (07/26/2018 11:41 AM EDT) athologist Signature TSH 1.52 0.27 - 4.20 [facility] mlU/ML [facility] Specimen Anatomical Collection Method Collection Time Receive d Time (Source) Location / / Volume Laterality Blood specimen 07/26/2018 11:41 8 (specimen) AM EDT 11:56 AM EDT Resulting Agency Comment Spec In Lab Dorie Meeka ORACLE PROGRAMMER CHEMISTRY ORDERABLES Performing Organization Address City/[facility] Phon e Number [address] Comprehensive metabolic panel (non-fasting) (07/26/2018 11:41 AM EDT) [facility] Glucose Lvl 86 65 - 199 [facility] mg/dL [facility] Comment: Diabetes: >=200 mg/dL plus symp toms BUN 10 8 - 18 mg/dL [facility] Creatinine 0.81 0.70 - 1.20 mg/dL [facility] Sodium 143 135 - 145 mmol/L [facility] Potassium 4.0 3.5 - 5.0 mmol/L [facility] Comment: Please note: ??Patients with WBC >100,00 0 may have falsely elevated Potassium levels. ??For accurate Potassium quantif ication in these patients send serum separator tube (gold top) for subsequent determinations. ??Contact the Clinical Chemistry Laboratory if there are any qu estions. Chloride 107 98 - 107 mmol/L [facility] CO2 24 22 - 31 mmol/L [facility] Anion Gap 12 5 - 15 mmol/L [facility] Calcium 9.7 8.5 - 10.5 mg/dL [facility] Total Protein 6.5 6.1 - 8.0 gm/dL [facility] Albumin 4.1 3.2 - 5.2 gm/dL [facility] AST 10 0 - 30 unit/L [facility] ALT 10 0 - 30 unit/L [facility] Alk Phos 46 40 - 104 unit/L [facility] Total Bilirubin 0.5 0.2 - 1.3 mg/dL [facility] Estimated GFR 84 >=60 mL/min/1.73 m?? [facility] Comment: The eGFR was calculated using the CKD-EP I equation. As with all creatinine based estimates of kidney function, eGFR values calculated with the CKD-EPI equation are not accurate in patients wi th acute kidney failure, extremes of body mass or the acutely ill. http://Jobool/[facility] TULSAnkf eGFR 97 >=60 mL/min/1.73 m?? [facility] Comment: The eGFR was calculated using the CKD-EP I equation. As with all creatinine based estimates of kidney function, eGFR values calculated with the CKD-EPI equation are not accurate in patients wi th acute kidney failure, extremes of body mass or the acutely ill. http://Jobool/[facility] TULSAnkf Specimen Anatomical Collection Method Collection Time Receive d Time (Source) Location / / Volume Laterality Blood specimen 07/26/2018 11:41 8 (specimen) AM EDT 11:56 AM EDT Resulting Agency Comment Spec In Lab Dorie Blanco APRN CHEMISTRY ORDERABLES Performing Organization Address City/State/[place] [address] (ABNORMAL) Vitamin D, 25-Hydroxy (07/26/2018 11:41 AM EDT) P athologist Signature 25-OH Vit D 28 (L) 30 - 100 [facility] Total ng/mL [facility] Comment: Deficient <10 ng/mL Insufficient 10 to 29 ng/mL Sufficient 30 to 100 ng/mL Potential Intoxication >100 ng/mL According to the [place] National Osteoporosi s Foundation, Vitamin D concentrations >30 ng/mL are sufficient to protect bone health. ??The National Kidney Foundation has similarly stated that pat ients with Vitamin D concentrations <30ng/mL should be considered to be insu fficient or deficient. http://tu.nr.Convo/nkf-guidelines http://tu.nr.Convo/nejm-VitD The [employer] i[employer] Vitamin D Immunoassay detec ts both 25-OH Vitamin D2 and 25-OH Vitamin D3, but only a total Vitamin D c oncentration is reported. Specimen Anatomical Collection Method Collection Time Receive d Time (Source) Location / / Volume Laterality Blood specimen 07/26/2018 11:41 8 1:57 (specimen) AM EDT PM EDT Resulting Agency Comment Spec In Lab Dorie Blanco APRN CHEMISTRY ORDERABLES Performing Organization Address City/[facility]/[place] [address] Vitamin B12 (07/26/2018 11:41 AM EDT) athologist Signature Vitamin B-12 485 232 - 1,245 [facility] pg/mL [facility] Comment: Please note: Effective 10/28/2017, the r eference interval and the lower limit of detection for Vitamin B12 have been u pdated due to a new reagent formulation. Specimen Anatomical Collection Method Collection Time Receive d Time (Source) Location / / Volume Laterality Blood specimen 07/26/2018 11:41 8 (specimen) AM EDT 11:56 AM EDT Resulting Agency Comment Spec In Lab Tracia Francis ORACLE PROGRAMMER CHEMISTRY ORDERABLES Performing Organization Address City/[facility]/ZIP [facility] [place] [address] Ferritin (07/26/2018 11:41 AM EDT) athologist Signature Ferritin 36 30 - 400 [facility] ng/mL [facility] Comment: Pediatric reference ranges not verified at [facility], interpret with caution. Reference ranges for females greater roger n 50 years of age approach values for men, i.e., 30-400 ng/mL. Specimen Anatomical Collection Method Collection Time Receive d Time (Source) Location / / Volume Laterality Blood specimen 07/26/2018 11:41 8 (specimen) AM EDT 11:56 AM EDT Resulting Agency Comment Spec In Lab Dorie Blanco APRN CHEMISTRY ORDERABLES Performing Organization Address City/State/[place] [address] Iron and TIBC (07/26/2018 11:41 AM EDT) athologist Signature Iron 89 30 - 150 [facility] mcg/dL [facility] TIBC 309 250 - 450 [facility] mcg/dL [facility] Iron Saturation 29 20 - 50 % [facility] Specimen Anatomical Collection Method Collection Time Receive d Time (Source) Location / / Volume Laterality Blood specimen 07/26/2018 11:41 8 (specimen) AM EDT 11:56 AM EDT Resulting Agency Comment Spec In Lab Dorie Blanco APRN CHEMISTRY ORDERABLES Performing Organization Address City/[facility]/[place] [address] documented in this encounter Visit Diagnoses Diagnosis Diarrhea, unspecified type documented in this encounter Care Teams Raveler Relationship Specialty Start Date End Date Virginie Gudino APRN PCP - General Family Medicine 06/16/18 [address] [place] [address] documented as of this encounter
--- OUTSIDE RECORDS SUMMARY | 2022-05-26 22:00 | XMS_ITS | Encounter Summary ---
:1965 Author Organization [facility] [place] [address] Care Team Providers Name Role Phone Virginie Gudino APRN Primary Care Provider Reason for Visit Reason Comments Bipolar Disorder Encounter Details Date Type Department Care Team Description 10/27/2018 Office Visit Psychiatry and Laura Villalobos affective Behavioral Health andrew Mar MD disorder, remission [facility] status unspecified [facility] [address] Salazar PSYCHIATRY [place] [phone] Social History Tobacco Use Types Packs/Day Years Used Date Never Smoker Smokeless Tobacco: Never Used Alcohol Use Standard Drinks/Week Comments No 0 (1 standard drink = 0.6 oz pure alcoho l) Sex Assigned at Date Recorded Female 02/11/2021 8:25 PM EDT documented as of this encounter Last Filed Vital Signs Vital Sign Reading Time Taken Comments Blood Pressure 123/64 10/27/2018 2:40 PM EST Pulse 52 10/27/2018 2:40 PM EST Temperature - - Respiratory Rate 18 10/27/2018 2:40 PM EST Oxygen Saturation - - Inhaled Oxygen Concentration - - Weight 69.4 kg (153 lb) 10/27/2018 2:40 PM EST Height 167.6 cm (5' 5.98) 10/27/2018 2:40 PM EST Body Mass Index 24.71 10/27/2018 2:40 PM EST documented in this encounter Progress Notes Laura Villalobos MD - 10/27/2018 3:00 PM EST ESTABLISHED ADULT PATIENT OFFICE VISIT NOTE Time Spent: 30 min Attendee(s): Ms. Silva This patient was seen with Dr. Demetrius Deng See her note for confirmatory and/or revisionary documentation. HISTORY Chief Complaint: Shireen Silva is a 53 y.o. Female presents today for medication management/follow up HPI: She reports her mood is a bit more depressed since her most recent appointment. She reports it's thesame as it always is, and she feels less motivated and a bit more anxious. She reports the holidays,winter, and her son being in college add to the stress. It's not really one thing, it's a lot of things per patient. Her therapist moved during the summer and so she isn't seeing a therapist right now. She feels it's too hard to drive to see him. - Got a lithium level a few months ago and she thinks it it was around 0.95 - she is going to email the result in so it can go into her chart. - She reports it took about 2 weeks to get her medications to be refilled while I was on leave - shedidn't miss a dose a dose of lithium but did miss some doses of ambien - went a week or two without it. During that time she took ativan and melatonin, also tried another over the counter sleep aid. Now she is back to taking ambien, and is sleeping well again. She feels her current medications are working. Hasn't been taking ativan or zyprexa recently. Sleeping 6-7 hours per night. She reports thoughts of hurting herself are at the same level as at the last appointment. Patient reports she still has thoughts about what she could do - she reports she has no intent or plan to harm herself or kill herself. She reports she would call emergency services if needed, has the card on her refrigerator, could also call 911 or go to the ED. 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 No cutting in the past couple of months. Alcohol: drinks alcohol a little less than 28 out of 30 days, 1-2 drinks at a time, wine at dinner, pretty much the same - she has times when she doesn't drink and that's ok - it's more a relaxingthing Cigarettes: no smoking Drugs: no drugs, no marijuana. Current Medications: lithobid sustained release 600 mg daily and 900 mg QHS ambien 5 mg QHS Ativan 0.5 mg PRN anxiety zyprexa 2.5 mg tablet PRN - hasn't used recently GAD7 Questionnaires Data: last 4 values of anxiety scores MALVIN-7 Questionnaire Score Only 10/18/2017 03/18/2018 05/07/2018 10/27/2018 MALVIN-7 Score (Patient) 5 (Mild Anxiety) 4 (Minimal Anxiety) 7 (Mild Anxiety) 7 (Mild Anxiety) PHQ9 Questionnaires Data (Clinic and Pt Entered): Today's value PHQ-9 QUESTIONNAIRE (AMB) 10/27/2018 PHQ - 9 Score (Patient) 9 (Mild Depression) Little interest or pleasure (Patient) More than half the days Down, depressed, hopeless (Patient) More than half the days Trouble sleeping (Patient) Several days Tired or no energy (Patient) More than half the days Poor appetite or overeating (Patient) Not at all Feeling like a failure (Patient) Several days Trouble concentrating (Patient) Not at all Moving or speaking slowly (Patient) Not at all Would be better off (Patient) Several days PHQ9 Questionnaires Data (Clinic and Pt Entered): last 4 values of depression scores PHQ-9 QUESTIONNAIRE SCORE ONLY (Patient) 09/19/2016 03/20/2017 05/07/2018 10/27/2018 PHQ - 9 Score (Patient) 8 (Mild Depression) 17 (Moderately Severe Depression) 9 (Mild Depression) 9 (Mild Depression) Some recent data might be hidden Pertinent Medication Side Effects: None reported PFSH: (0) 10/27/18: Reviewed hx of diana - she reports she has had about 4 manic episodes with decreased need for sleep, increased energy, doing things she wouldn't normally do. 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 EXAM [05/08/14 bullets (incl VS)] Constitutional System ? Vital Signs: Blood pressure 123/64, pulse 52, resp. rate 18, height 167.6 cm (5' 5.98), weight 69.4 kg (153 lb). Musculoskeletal System ? Muscle Strength/Tone (note [...] intent or plan to self harm. See above. Hallucinations: none reported/elicited Delusions: none reported/elicited Obsessions: none reported/elicited ? Judgment and Insight: fair ? Mood & Affect: she reports her mood has been lower/affect is calm, cooperative ? Orientation: intact ? Attention/Concentration: alert/attentive and without need for redirection ? Memory: grossly intact to recent/remote events ? Language: fluent ? Fund of Knowledge: average MEDICAL DECISION MAKING ASSESSMENT: Shireen Silva is a 53 y.o. Female with hx of bipolar disorder presenting for medicationmanagement/follow up. Overall she seems to be feeling a bit lower in terms of mood. She stopped seeing her therapist and reports she has several stressors. There are no acute safety concerns - the patient does reports some intermittent thoughts of harming herself however she reports these thoughts have not increased, and she denies intent or plan to harm herself. She reports she would reach out for help if needed. She reports she would like to continue her current medication regimen. We did discuss her alcohol use and that alcohol is a depressant. Additionally we discussed with her the possible useof a light box, with monitoring for signs of hypomania. PLAN: - Patient to email her therapist about a recommendation for a closer one - patient to email lithium result - Pt to continue lithobid sustained release 600 mg daily and 900 mg QHS - Pt to continue ambien 5 mg QHS Patient Instruction/Education provided: Patient provided verbal instructions regarding treatment plan. Patient understands the plan? Yes Demetrius Deng MD - 10/27/2018 3:00 PM EST PSYCHIATRY TEACHING PHYSICIAN INVOLVEMENT Location: [facility], [address] Attending Physician: Demetrius Deng MD Resident [...] bipolar disorder presenting for medication management/follow up. Mood feels low, but doesn't want to change her meds. Hadlithium level drawn at OSH - will send us those. Reviewed risk/benefit of lightbox with bipolar depression. Also reviewed risks of alcohol in promoting depression. No SI or HI. DEMETRIUS DENG MD documented in this encounter Plan of Treatment Upcoming Encounters Date Type Specialty Care Team Description 06/30/2022 TH Visit (TeleHealth) Psychiatry Ashtyn Joseph APRN [facility] [address] [place], [place] [address] (Wo rk) documented as of this encounter Visit Diagnoses Diagnosis Bipolar affective disorder, remission st [facility] unspecified documented in this encounter Care Teams Inspector Hairspring Truing Relationship Specialty Start Date End Date Virginie Gudino APRN PCP - General Family Medicine 06/16/18 [place] [address] documented as of this encounter
--- OUTSIDE RECORDS SUMMARY | 2022-05-26 22:00 | XMS_ITS | Encounter Summary ---
:1965 Author Organization [facility] [address] Care Team Providers Name Role Phone None Primary Care Provider Unavailable Encounter Details Date Type Department Care Team Description 10/19/2017 Office Visit Psychiatry and Laura Villalobos affective Behavioral Health andrew Mar MD disorder, remission [facility] status unspecified [facility] DR [address] [place] [phone] Social History Tobacco Use Types Packs/Day Years Used Date Never Smoker Alcohol Use Standard Drinks/Week Comments No 0 (1 standard drink = 0.6 oz pure alcoho l) Sex Assigned at Date Recorded Female 02/11/2021 8:25 PM EDT documented as of this encounter Last Filed Vital Signs Vital Sign Reading Time Taken Comments Blood Pressure 116/71 10/19/2017 10:18 AM EST Pulse 53 10/19/2017 10:18 AM EST Temperature - - Respiratory Rate - - Oxygen Saturation - - Inhaled Oxygen Concentration - - Weight 83.1 kg (183 lb 3.2 oz) 10/19/2017 10:18 AM EST Height 167.6 cm (5' 6) 10/19/2017 10:18 AM EST Body Mass Index 29.57 10/19/2017 10:18 AM EST documented in this encounter Progress Notes Laura Villalobos MD - 10/19/2017 10:30 AM EST ESTABLISHED ADULT PATIENT OFFICE VISIT NOTE Time Spent: 60 min Attendee(s): Ms. Silva This patient was seen with Dr. Demetrius Deng See her note for confirmatory and/or revisionary documentation. HISTORY Chief Complaint: Shireen Silva is a 52 y.o. Female presents today for medication management/follow up HPI: She reports she is doing pretty good per patient. She is working on her therapy. She feels she doesn't want to change medications at this time. She is going to therapy every other week. She reports it is going ok. Ambien she is using per patient sometimes - approximately every other night. She sometimes splits them in half. No ativan or zyprexa recently. She reports her mood overall has been per patient ok - she reports this this is a tough time of year because of the holidays. She reports she feels more anxious and then she reports that that is something therapy helps with. She reports she has had some depressed feelings per patient here and there but she reports it hasn't been per patient overwhelming or persistent. She likes to cook and is having Thanksgiving with her two sons and her . She is sleeping approximately 6 hours per night, sometimes a little more. She reports this isn't less than usual. Sometimes she has been waking up about 20 mins before her alarm. She has thoughts at times such as per patient nobody would miss me or care and she thinks about things she per patient could do - she reports it is at the same level as at her most recent appointment. She denies intent or plan to harm herself. She reports she would call emergency services if needed. She already made [employer] and Tagged for the Thanksgiving. 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 She is thinking about increasing hervolunteer time. She reports she sees people she is connected to while volunteering. Most recent PHQ9: PHQ9 10/18/2017 Little interest or pleasure Several days Down, depressed, hopeless Several days Trouble sleeping - Tired or no energy - Poor appetite or overeating - Feeling like a failure - Trouble concentrating (newspaper) - Moving or speaking slowly - Would be better off - PHQ9 Scores - Current Medications: Current Outpatient Prescriptions Medication Sig Dispense Refill ??? zolpidem (AMBIEN) 5 mg Tablet Take 0.5-1 tablets by mouth nightly as needed for Sleep. 30 tablet2 ??? lithium (LITHOBID) 300 mg Tablet Sustained Release TAKE TWO TABLETS BY MOUTH EVERY MORNING AND THREE TABLETS EVERY EVENING 150 tablet 3 ??? pseudoephedrine (SUDAFED) 30 mg tablet Take 30 mg by mouth every 4 hours as needed. Reported on 03/23/2017 ??? LORazepam (ATIVAN) 0.5 mg Tablet Take 1 tablet by mouth every 6 hours as needed (panic attacks).(Patient not taking: Reported on 10/19/2017) 5 tablet 0 ??? OLANZapine (ZYPREXA) 2.5 mg Tablet Take 1 tablet by mouth nightly as needed (diana). (Patient not taking: Reported on 03/23/2017) 5 tablet 0 ??? cetirizine (ZYRTEC) 10 mg tablet Take 10 mg by mouth daily. Reported on 03/23/2017 Indications: Seasonal Allergic Rhinitis ??? calcium carbonate (TUMS) 200 mg calcium [...] medication trials: ?Citalopram ?Venlafaxine ?Fluoxetine ?Bupropion ?Risperidone ?[place] (current at 600 mg and 900 mg daily) ?Oxcarbazepine ?Clonazepam ?Lorazepam ?Zolpidem (current at 5 mg nightly PRN insomnia) ?Eszopiclone Lurasidone Family Psychiatric and Medical History: no interval change Social History: Son is entering senior year which she reports is exciting. 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 EXAM [05/08/14 bullets (incl VS)] Constitutional System ? Vital Signs: Blood pressure 116/71, pulse 53, height 167.6 cm (5' 6), weight 83.1 kg (183 lb 3.2 oz). Musculoskeletal System ? Muscle Strength/Tone (note atrophy, [...] and Insight: fair ? Mood & Affect: pretty good per patient/affect is calm, cooperative, cheerful, [...] she seems to be doing well. She is continuing to volunteer and is preparing the the holidays. There are no acute safety concerns - [...] reports she takes it approximately every other night. - lithium level 0.75 on 08/24/17 - RTC in approximately 2-3 month or sooner PRN -Continue other medications without adjustment Patient Instruction/Education provided: Patient provided verbal instructions regarding treatment plan. Patient understands the plan? Yes Demetrius Deng MD - 10/19/2017 10:30 AM EST PSYCHIATRY TEACHING PHYSICIAN INVOLVEMENT Location: [facility], [address] Attending Physician: Demetrius Deng MD Resident [...] h/o bipolar disorder. Continues to do well. Ready for thanksgiving - has already made two pies. No SI or HI. No substance abuse. No med changes today. Lab Results Component Value Date LITHIUM 0.75 08/24/2017 NA 144 08/24/2017 BUN 15 08/24/2017 CREATININE 0.77 08/24/2017 TSH 1.01 04/17/2015 WBC 6.35 04/06/2014 DEMETRIUS DENG MD documented in this encounter Plan of Treatment Upcoming Encounters Date Type Specialty Care Team Description 06/30/2022 TH Visit (TeleHealth) Psychiatry Ashtyn Joseph APRN [facility] DR PSYCHIATRY [place], [place] [address] (Wo rk) documented as of this encounter Visit Diagnoses Diagnosis Bipolar affective disorder, remission st [facility] unspecified documented in this encounter Care Teams [employer] Operations Consultant Relationship Specialty Start Date End Date None PCP - General 05/11/17 06/15/18 None documented as of this encounter
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
--- OUTSIDE RECORDS SUMMARY | 2022-05-26 22:00 | XMS_ITS | Encounter Summary ---
:1965 Author Organization [facility] [address] Care Team Providers Name Role Phone Virginie Gudino APRN Primary Care Provider Reason for Visit Reason Onset Date Comments Medication Refill 09/11/2020 Encounter Details Date Type Department Care Team Description 09/11/2020 Refill Psychiatry and Behavioral [facility] [place] [place] [phone] Social History Tobacco Use Types Packs/Day [...] Joseph APRN [facility] [address] [place], [place] [address] (Wo rk) documented as of this encounter Visit Diagnoses Not on filedocumented in this encounter Care Teams Museum Guide Relationship Specialty Start Date End Date Virginie Gudino APRN PCP - General Family Medicine 06/16/18 [place] [address] documented as of this encounter
--- OUTSIDE RECORDS SUMMARY | 2022-05-26 22:00 | XMS_ITS | Encounter Summary ---
:1965 Author Organization [facility] Address [address] [place] [address] Care Team Providers Name Role Phone Virginie Gudino APRN Primary Care Provider Reason for Visit Reason Comments GI Problem Consultation (Routine) - Specialty Diagnoses / Procedures Referred By Contact Refer red To Contact Gastroenterology Diagnoses chronic diarrhea Virginie Gudino APRN [facility] [address] [address] [place] [place] [address] [address] [place] [address] Fax: Referral ID Status Reason Start Date Expiration Date Visits V isits Requested Authorized [id number] Consult, 12/15/2017 12/15/2018 6 6 [facility] Encounter Details Date Type Department Care Team Description 07/26/2018 Office Visit Gastroenterology at [facility] Dorie Blanco Bloating; [facility] Yg baez APRN [place], [place] [address] [facility] [phone] [place] [address] Social History Tobacco Use Types Packs/Day Years Used Date Never Smoker Smokeless Tobacco: Never Used Alcohol Use Standard Drinks/Week Comments No 0 (1 standard drink = 0.6 oz pure alcoho l) Sex Assigned at Date Recorded Female 02/11/2021 8:25 PM EDT documented as of this encounter Last Filed Vital Signs Vital Sign Reading Time Taken Comments Blood Pressure 117/69 07/26/2018 9:51 AM EDT Pulse 56 07/26/2018 9:51 AM EDT Temperature - - Respiratory Rate - - Oxygen Saturation - - Inhaled Oxygen Concentration - - Weight 70.8 kg (156 lb) 07/26/2018 9:51 AM EDT Height 167.6 cm (5' 6) 07/26/2018 9:51 AM EDT Body Mass Index 25.18 07/26/2018 9:51 AM EDT documented in this encounter Progress Notes Dorie Blanco, RN - 07/26/2018 10:00 AM EDT Section of Gastroenterology and Hepatology [address] [place] [address] .Shireen Silva : 1965 Patient is here for further evaluation of gastrointestinal symptoms at the request of Virginie Gudino APRN. HPI: Pt has had diarrhea for one year. No changes at that time. She was on low card diet. Then beganbaking quite a bit and added sugar into diet. Tried avoiding lactose but no change in sx. Tried gluten free/low fodmap diet. This helped. Diarrhea is less frequent. Was daily now happens for a day or two. The diarrhea is watery. No night time sx. Can have some cramping and urgency associated with the diarrhea. Typically the cramping is on the left side. Uses pepto and kaopectate prn, with brief relief. In between these episodes she is having formed stools. No blood in stool. Small amount of mucus at times especially when she feels like she has to go to the bathroom and will push. This is when she will have mucous. Weight loss over the last year, 35 pounds. Unintentional. For the last two months weight has been stable. Stools are not explosive. Bloating at times. No significant amount of flatus. No fecal seepage. 2018 colonoscopy. [facility]. 9 polyps. Reported limited. No bx available. Pt feels extremely tired when she has the diarrhea. No chronic nsaids. No food allergies. No upper gi sx. Social History Social History ??? Marital status: Spouse name: N/A ??? Number of children: N/A ??? Years of education: N/A Occupational History ??? Not on file. Social History Main Topics ??? Smoking status: Never Smoker ??? Smokeless tobacco: Never Used ??? Alcohol use No ??? Drug use: No ??? Sexual activity: Not on file Other Topics Concern ??? Not on file Social History Narrative Medical History: bipolar Surgical History: non-contributory Family History: no gi etiologies No Known Allergies Current Outpatient Prescriptions: ??? bismuth subsalicylate (PEPTO-BISMOL) 262 mg/15 mL Suspension, Take 15 mLs by mouth every 6 hoursas needed for Indigestion., Disp: , Rfl: ??? zolpidem (AMBIEN) 5 mg Tablet, Take 0.5-1 tablets by mouth nightly as needed for Sleep., Disp: 30 tablet, Rfl: 0 ??? lithium (LITHOBID) 300 mg Tablet Sustained Release, TAKE TWO TABLETS BY MOUTH EVERY MORNING AND THREE TABLETS EVERY EVENING, Disp: 150 tablet, Rfl: 4 ??? calcium carbonate (TUMS) 200 mg calcium (500 mg) chewable tablet, Take 1 tablet by mouth daily as needed., Disp: , Rfl: ??? LORazepam (ATIVAN) 0.5 mg Tablet, Take 0.5 mg by mouth every 6 hours as needed for Anxiety., Disp: , Rfl: ??? cetirizine (ZYRTEC) 10 mg tablet, Take 10 mg by mouth daily. Reported on 03/23/2017 Indications: Seasonal Allergic Rhinitis, Disp: , Rfl: ??? pseudoephedrine (SUDAFED) 30 mg tablet, Take 30 mg by mouth every 4 hours as needed. Reported on03/23/2017, Disp: , Rfl: ??? multivitamin (THERAGRAN) tablet, Take 1 tablet by mouth daily., Disp: , Rfl: Review of Systems - Negative except General: Cardiac: Resp: GI: see above : MS: Neuro: Skin: Psyche: Sleep: Endo: Impression: 1. Intermittent loose stools: sx responded to low fodmap diet. Schedule with care companion to slowly addfoods back into diet and identify aggravating foods. ?sibo. Schedule hbt. Obtain colonoscopy report and bx from [facility]. Blood work today. 2. Gif in 6-8 weeks I spent a total of 54 minutes face to face with this patient; 40 minutes were spent counseling the patient in the medical problems described above. Sincerely, Dorie Blanco, ELLIOTT Section of Gastroenterology and Hepatology documented in this encounter Plan of Treatment Upcoming Encounters Date Type Specialty Care Team Description 06/30/2022 TH Visit (TeleHealth) Psychiatry Ashtyn Joseph APRN [facility] [address] [place] [address] (Wo rk) documented as of this encounter Results TSH (07/26/2018 11:41 AM EDT) athologist Signature TSH 1.52 0.27 - 4.20 [facility] mlU/ML [facility] Specimen Anatomical Collection Method Collection Time Receive d Time (Source) Location / / Volume Laterality Blood specimen 07/26/2018 11:41 8 (specimen) AM EDT 11:56 AM EDT Resulting Agency Comment Spec In Lab Dorie Blanco APRN CHEMISTRY ORDERABLES Performing Organization Address City/State/[place] [address] Comprehensive metabolic panel (non-fasting) (07/26/2018 11:41 AM EDT) P athologist Signature Glucose Lvl 86 65 - 199 [facility] mg/dL [facility] Comment: Diabetes: >=200 mg/dL plus symp toms BUN 10 8 - 18 mg/dL [facility] Creatinine 0.81 0.70 - 1.20 mg/dL [facility] Sodium 143 135 - 145 mmol/L [facility] Potassium 4.0 3.5 - 5.0 mmol/L [facility] Comment: Please note: ??Patients with WBC >100,00 0 may have falsely elevated Potassium levels. ??For accurate Potassium quantif ication in these patients send serum separator tube (gold top) for subsequent determinations. ??Contact the Clinical Chemistry Laboratory if there are any qu estions. Chloride 107 98 - 107 mmol/L [facility] CO2 24 22 - 31 mmol/L [facility] Anion Gap 12 5 - 15 mmol/L [facility] Calcium 9.7 8.5 - 10.5 mg/dL [facility] Total Protein 6.5 6.1 - 8.0 gm/dL [facility] Albumin 4.1 3.2 - 5.2 gm/dL [facility] AST 10 0 - 30 unit/L [facility] ALT 10 0 - 30 unit/L [facility] Alk Phos 46 40 - 104 unit/L [facility] Total Bilirubin 0.5 0.2 - 1.3 mg/dL [facility] Estimated GFR 84 >=60 mL/min/1.73 m?? [facility] Comment: The eGFR was calculated using the CKD-EP I equation. As with all creatinine based estimates of kidney function, eGFR values calculated with the CKD-EPI equation are not accurate in patients wi th acute kidney failure, extremes of body mass or the acutely ill. http://[employer]/DHMCnkf eGFR 97 >=60 mL/min/1.73 m?? [facility] Comment: The eGFR was calculated using the CKD-EP I equation. As with all creatinine based estimates of kidney function, eGFR values calculated with the CKD-EPI equation are not accurate in patients wi th acute kidney failure, extremes of body mass or the acutely ill. http://[employer]/DHMCnkf Specimen Anatomical Collection Method Collection Time Receive d Time (Source) Location / / Volume Laterality Blood specimen 07/26/2018 11:41 8 (specimen) AM EDT 11:56 AM EDT Resulting Agency Comment Spec In Lab Dorie Blanco APRN CHEMISTRY ORDERABLES Performing Organization Address City/State/[place] [address] (ABNORMAL) Vitamin D, 25-Hydroxy (07/26/2018 11:41 AM EDT) athologist Signature 25-OH Vit D 28 (L) 30 - 100 [facility] Total ng/mL [facility] Comment: Deficient <10 ng/mL Insufficient 10 to 29 ng/mL Sufficient 30 to 100 ng/mL Potential Intoxication >100 ng/mL According to the US National Osteoporosi s Foundation, Vitamin D concentrations >30 ng/mL are sufficient to protect bone health. ??The National Kidney Foundation has similarly stated that pat ients with Vitamin D concentrations <30ng/mL should be considered to be insu fficient or deficient. http://[employer]/nkf-guidelines http://[employer]/nejm-VitD The [employer] Vitamin D Immunoassay detec ts both 25-OH Vitamin D2 and 25-OH Vitamin D3, but only a total Vitamin D c oncentration is reported. Specimen Anatomical Collection Method Collection Time Receive d Time (Source) Location / / Volume Laterality Blood specimen 07/26/2018 11:41 8 1:57 (specimen) AM EDT PM EDT Resulting Agency Comment Spec In Lab Trajarrell Blanco APRN CHEMISTRY ORDERABLES Performing Organization Address City/State/[place] [address] Vitamin B12 (07/26/2018 11:41 AM EDT) athologist Signature Vitamin B-12 485 232 - 1,245 [facility] pg/mL [facility] Comment: Please note: Effective 10/28/2017, the r eference interval and the lower limit of detection for Vitamin B12 have been u pdated due to a new reagent formulation. Specimen Anatomical Collection Method Collection Time Receive d Time (Source) Location / / Volume Laterality Blood specimen 07/26/2018 11:41 8 (specimen) AM EDT 11:56 AM EDT Resulting Agency Comment Spec In Lab Tracia Mary Lou'Latisha POND SCALER CHEMISTRY ORDERABLES Performing Organization Address City/State/[place] [address] Ferritin (07/26/2018 11:41 AM EDT) athologist Signature Ferritin 36 30 - 400 [facility] ng/mL [facility] Comment: Pediatric reference ranges not verified at [facility], interpret with caution. Reference ranges for females greater roger n 50 years of age approach values for men, i.e., 30-400 ng/mL. Specimen Anatomical Collection Method Collection Time Receive d Time (Source) Location / / Volume Laterality Blood specimen 07/26/2018 11:41 8 (specimen) AM EDT 11:56 AM EDT Resulting Agency Comment Spec In Lab Dorie Blanco APRN CHEMISTRY ORDERABLES Performing Organization Address City/[facility]/ZIP Code Phon e Number [address] Iron and TIBC (07/26/2018 11:41 AM EDT) athologist Signature Iron 89 30 - 150 [facility] mcg/dL [facility] TIBC 309 250 - 450 [facility] mcg/dL [facility] Iron Saturation 29 20 - 50 % [facility] Specimen Anatomical Collection Method Collection Time Receive d Time (Source) Location / / Volume Laterality Blood specimen 07/26/2018 11:41 8 (specimen) AM EDT 11:56 AM EDT Resulting Agency Comment Spec In Lab Dorie Blanco APRN CHEMISTRY ORDERABLES Performing Organization Address City/State/ZIP [facility] Phon e Number [address] documented in this encounter Visit Diagnoses Diagnosis Bloating Flatulence, eructation, and gas pain Diarrhea, unspecified type documented in this encounter Care Teams Natural Sciences Department Chair Relationship Specialty Start Date End Date Virginie Gudino APRN PCP - General Family Medicine 06/16/18 [place] [address] documented as of this encounter
--- OUTSIDE RECORDS SUMMARY | 2022-05-26 22:00 | XMS_ITS | Encounter Summary ---
:1965 Author Organization [facility] [place] [address] Care Team Providers Name Role Phone None Primary Care Provider Unavailable Reason for Visit Reason Onset Date Comments Medication Refill 01/04/2018 Encounter Details Date Type Department Care Team Description 01/04/2018 Refill Psychiatry and Behavioral Elin cates, aLura Mar MD [facility] [place] [address] [place] [address] [phone] (Wo rk) Social History Tobacco Use Types [...] Visit (TeleHealth) Psychiatry Ashtyn Joseph APRN [facility] ER [address] [place], [place] [address] (Wo rk) documented as of this encounter Visit Diagnoses Not on filedocumented in this encounter Care Teams Electrical Manufacturing Engineer Relationship Specialty Start Date End Date None PCP - General 05/11/17 06/15/18 None documented as of this encounter
--- OUTSIDE RECORDS SUMMARY | 2022-05-26 22:00 | XMS_ITS | Encounter Summary ---
:1965 Author Organization [facility] [place] [address] Care Team Providers Name Role Phone None Primary Care Provider Unavailable Reason for Visit Reason Onset Date Comments Medication Refill 06/25/2017 Encounter Details Date Type Department Care Team Description 06/25/2017 Refill Psychiatry and Behavioral Elin cates, Laura Mar MD [facility] [place] [address] [place] [address] [phone] (Wo rk) Social History Tobacco Use Types Packs/Day Years Used Date Never Smoker Alcohol Use Standard Drinks/Week Comments No 0 (1 standard drink = 0.6 oz pure alcoho l) Sex Assigned at Date Recorded Female 02/11/2021 8:25 PM EDT documented as of this encounter Plan of Treatment Upcoming Encounters Date Type Specialty Care Team Description 06/30/2022 TH Visit (TeleHealth) Psychiatry Ashtyn Joseph APRN [facility] ER [address] [place], [place] [address] (Wo rk) documented as of this encounter Visit Diagnoses Not on filedocumented in this encounter Care Teams Decorating Supervisor Relationship Specialty Start Date End Date None PCP - General 05/11/17 06/15/18 None documented as of this encounter
--- OUTSIDE RECORDS SUMMARY | 2022-05-26 22:00 | XMS_ITS | Encounter Summary ---
:1965 Author Organization [facility] [place] [address] Care Team Providers Name Role Phone Deedee Gudinoh DANNA Primary Care Provider Encounter Details Date Type Department Care Team Description 01/21/2021 TH Visit Psychiatry and Laura Joseph Bipolar I disorder (TeleHealth) Behavioral Health at DANNA [place] with depression [facility] (Primary Dx) [facility] [address] PSYCHIATRY [place] [address] [phone] Social History Tobacco Use Types Packs/Day Years Used Date Never Smoker Smokeless Tobacco: Never Used Alcohol Use Standard Drinks/Week Comments No 0 (1 standard drink = 0.6 oz pure alcoho l) Sex Assigned at Date Recorded Female 02/11/2021 8:25 PM EDT documented as of this encounter Progress Notes Laura Joseph APRN - 01/21/2021 9:00 AM EST ESTABLISHED ADULT PATIENT OFFICE VISIT NOTE Shireen Silva gave permission for and was seen for today's appointment with a Telephone Office Visit. During this visit they were located in [place]. Shireen Silva is aware that for any urgent matter theycan call [phone]. Time Spent: 35 minutes Attendee(s): Shireen Silva Identifying information: Shireen Silva is a 55 y.o. female with history of Bipolar I disorder with r/o MALVIN. She transferred to Zhanna Mistry APRN from Dr. Villalobos March 2020. She is here for ongoing follow up. Chief Complaint: here for follow up History of Present Illness: () (Quality, Severity, Duration, Timing, Context, Modifying factors, Associated S&S) Psychiatric Symptoms: ??? Sleeps about 7 hours with Ambien-has been helpful in conjunction with gabapentin (prescribed forPeriodic Limb Movement disorder) ??? Feeling more depressed due COV and winter-gets overwhelmed easily and that triggers depression. Kaka has been great (no diana for at least 8 years, when started Kaka) ??? Feels she is currently at her baseline 'depression'. No overt concerns today. Denies SI/HI ??? Appetite overall pretty good ??? Auditory hallucinations-can be annoying but nothing negative. Music, somebody talking ??? One incident of cutting in the last few weeks ago but superficial. Nothing since. ??? Admits that on a separate occasion a couple of weeks ago-really depressed I feel like I can't really think through what's going on. Did write suicide letter but later ripped it up and wondered Why did I write that? I don't want to . Health Changes: ?? GI-gluten free ?? has small intestinal bacterial overgrowth and struggles with GI issues Work/Life/Family Updates: ?? Has three rabbits and one dog (lab/[employer] mountain dog) ?? Cooks; son helps sometimes which is nice Substance Use: no change (minimal ETOH intake) Safety: denies SI/HI Pertinent Medication Side Effects: [...] Outpatient Medications Medication Sig Dispense Refill ??? gabapentin (Neurontin) 300 mg Capsule Take 600 mg by mouth nightly. ??? LORazepam (Ativan) 0.5 mg Tablet Take [...] IN THE EVENING ( complete level at [facility]) 150 tablet 5 ??? FLUoxetine (PROzac) 20 mg Capsule Take 1 capsule by mouth daily. 30 capsule 5 ??? cetirizine (ZYRTEC) 10 mg tablet Take [...] recent weight change and no fever GI Mild GI upset NEURO no headache, no numbness, no tremors, [...] hasa history of cutting, and reports she has started to cut more in the spring. She lives with her and has three sons. She is currently trying to re-engage in therapy. ?? Prior medications trials: ?? Celexa ?Venlafaxine ?Fluoxetine ?Bupropion ?Risperidone ?Kaka (current at 600 mg and 900 mg daily) ?Oxcarbazepine ?Clonazepam ?Lorazepam ?Zolpidem (current at 5 mg nightly PRN insomnia) ?Eszopiclone ?Lurasidone 2017 - felt it made her mood worse Social History: She is to [place] of about 30 years. They have 3 sons (20, 25, 27). Her is retired from state [employer]. They all have to share one car. 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 Notes growing up in family that didn't express emotions easily she can internalize things. Alcohol: 1-2 drinks at a time, wine at dinner Cigarettes: no smoking Drugs: no drugs, no marijuana. Vitals (24hr Range): No data found. Musculoskeletal System: no abnormal movements Mental Status Exam: ?? Appearance: age appropriate ?? Behavior: cooperative with the interview and good eye contact ?? Speech: normal pitch, normal volume, normal rate and normal rhythm ?? Language: fluent in bahraini ?? Mood: okay ?? Affect: full ?? Thought Process: linear [...] ?? Judgment: good ?? Labs: Psychiatry Labs: 11/05/20 ??Creatinine 0.94 mg/dL 0.55-1.02 mg/dL Calcium Level 9.5 mg/dL 8.5-10.1 mg/dL TSH: 1.60 uIU/mL. ?? 12/17/20 lithium level .80 Reviewed symptoms of Kaka toxicity, including tremor/changes in muscle control (ataxia), weakness, increased thirst, blurred vision, GI upset, sedation Lab Results Component Value Date TSH 1.74 [...] MALVIN CURRENT ASSESSMENT: Shireen Silva is a 55 y.o. female who verbalizes depression as her baseline. She reports to be easily overwhelmed and when she feels like she cannot concentrate or focus on one activity (due to feeling overwhelmed) she struggles with suicidal ideations. Verbalizes having a strong support system and feels safe to discuss her mental health at home. She reports last manic episode about eight years ago. Has tried higher dose of Prozac (prior to lithium) and became manic. Discussed possibility of increasing Prozac if needed in future due to protective effects of Kaka. She denies SI/HI and feels like she is functioning at her normal level at this time. Feeling isolated with COVIDand winter though is reading and cooking at home. Safety Assessment: Shireen Silva denies suicidal and homicidal ideation. Protective factors include: family and community support and engaged in medical and/or mental health care. We carefully reviewed office and emergency contact info and when to contact our crisis line at . PLAN: ?? Medications instructions below: Kaka 600 mg AM, 900 mg HS Ambien 2.5 mg-5 mg HS PRN Prozac 20 mg qd Ativan 0.5 mg PRN (last filled 10/19) ?? Additional treatment recommendations: ?? Therapy: not currently interested ?? Labs: n/a Patient Instruction/Education provided: Patient provided verbal instructions regarding medication side effects, safety plan in case of feeling unsafe. Patient understands the plan? Yes Signed By: Laura Joseph APRN 01/21/2021 documented in this encounter Plan of Treatment Upcoming Encounters Date Type Specialty Care Team Description 06/30/2022 TH Visit (TeleHealth) Psychiatry Ashtyn Joseph APRN [facility] [address] [place], [place] [address] (Wo rk) documented as of this encounter Visit Diagnoses Diagnosis Bipolar I disorder with depression - [facility] Bipolar I disorder, most recent episode (or current) depressed, unspecified documented in this encounter Care Teams Auditor/Quality Relationship Specialty Start Date End Date Virginie Gudino APRN PCP - General Family Medicine 06/16/18 [address] [place] [address] documented as of this encounter
--- OUTSIDE RECORDS SUMMARY | 2022-05-26 22:00 | XMS_ITS | Encounter Summary ---
:1965 Author Organization [facility] [place] [address] Care Team Providers Name Role Phone Virginie Gudino APRN Primary Care Provider Reason for Visit Reason Onset Date Comments Medication Refill 08/28/2017 Encounter Details Date Type Department Care Team Description 08/28/2017 Refill Psychiatry and Behavioral Elin cates, Laura Mar MD [facility] Yg [place] [address] [place] [address] [phone] (Wo salvador) Social History Tobacco Use Types Packs/Day Years Used Date Never Smoker Alcohol Use Standard Drinks/Week Comments No 0 (1 standard drink = 0.6 oz pure alcoho l) Sex Assigned at Date Recorded Female 02/11/2021 8:25 PM EDT documented as of this encounter Plan of Treatment Upcoming Encounters Date Type Specialty Care Team Description 06/30/2022 TH Visit (TeleHealth) Psychiatry Ashtyn Joseph APRN [facility] ER [address] [place], [place] [address] (Wo salvador) documented as of this encounter Visit Diagnoses Not on filedocumented in this encounter Care Teams Sitecore Developer Relationship Specialty Start Date End Date Virginie Gudino APRN PCP - General Family Medicine 06/16/18 [place], [place] [id number] documented as of this encounter
--- OUTSIDE RECORDS SUMMARY | 2022-05-26 22:00 | XMS_ITS | Encounter Summary ---
:1965 Author Organization [place] [address] Care Team Providers Name Role Phone None Primary Care Provider Unavailable Encounter Details Date Type Department Care Team Description 06/04/2018 External Results Psychiatry and Behavioral Provider, [facility] [place] [address] Social History Tobacco Use Types Packs/Day Years [...] Visit (TeleHealth) Psychiatry Ashtyn Joseph APRN [facility] [address] [place], [place] [address] (Wo rk) documented as of this encounter Procedures Procedure Name Priority Date/Time Associated Diagnosis Comme nts LAB SCAN Routine 05/20/2018 documented in this encounter Results Scan Doc: Lab (05/20/2018) Narrative This result has an attachment that is no t available. Scanning Provider MEDIA MGR SCAN EXT ORDR/RSLT documented in this encounter Visit Diagnoses Not on filedocumented in this encounter Care Teams Burial Vault Deliverer And Installer Relationship Specialty Start Date End Date None PCP - General 05/11/17 06/15/18 None documented as of this encounter
--- OUTSIDE RECORDS SUMMARY | 2022-05-26 22:00 | XMS_ITS | Encounter Summary ---
:1965 Author Organization [facility] [place] [address] Care Team Providers Name Role Phone MariettaVirginie ventura DANNA Primary Care Provider Encounter Details Date Type Department Care Team Description 01/03/2021 TH Visit Psychiatry and Zhanna Mistry, Bipolar I disorder (TeleHealth) Behavioral Health at [facility] with depression [facility] [place] [address] [place] [address] [place], [place] [phone] (Work) [phone] Social History Tobacco Use Types Packs/Day Years Used Date Never Smoker Smokeless Tobacco: Never Used Alcohol Use Standard Drinks/Week Comments No 0 (1 standard drink = 0.6 oz pure alcoho l) Sex Assigned at Date Recorded Female 02/11/2021 8:25 PM EDT documented as of this encounter Progress Notes Zhanna Mistry APRN - 01/03/2021 11:30 AM EST ESTABLISHED ADULT PATIENT OFFICE VISIT NOTE Shireen Silva gave permission for and was seen for today's appointment with a Telephone Office Visit. During this visit they were located in [place]. Shireen Silva is aware that for any urgent matter theycan call [phone]. (prefers telephone to telehealth) Time Spent: 30 min Attendee(s): patient Identifying information: Shireen Silva is a 55 y.o. female with history of Bipolar I disorder with R/O MALVIN. She is a transfer from Dr. Villalobos. In March 2020. She is here for ongoing follow up. Chief Complaint: I had a hard night History of Present Illness: () (Quality, Severity, Duration, Timing, Context, Modifying factors, Associated S&S) Shireen Silva is a 55 y.o. female Psychiatric Symptoms: ?? Mood: more depressed ?? Bad night last night, was going call crisis, alone everything was building on her. She was thinking of everything going on in the world. Describes this as her head gets noisy Her or children were not home. Last night, she cried and cried. Eventually her dog cheered her up ?? works nights which can be challenging ?? Taking medications consistently ?? Forgets to take Lorazepam 1mg when she needs it. Last night would have helped ?? She reports ongoing auditory hallucinations have not been worse ( music playing). ?? She would be open to considering psychotherapy, but is hesitant. Health Changes: ?? Upped her gabapentin recently to help with sleep/restless leg. Work/Life/Family Updates: ?? Also her dog and ribbit have been sick which has contributed to feeling stressed. ?? She thinks increasing her exercise/walking will help. Substance Use: 2 glasses of wine, occasionally will drink more. Safety: Today, denies SI/HI intent or plan. Reminded of crisis number in case depression worsens. Questionnaires: PHQ9 Questionnaires Data (Clinic and Pt [...] Outpatient Medications Medication Sig Dispense Refill ??? rOPINIRole (Requip) 1 mg Tablet Take 1 mg by mouth nightly. ??? LORazepam (Ativan) [...] IN THE EVENING ( complete level at [facility]) 150 tablet 5 ??? FLUoxetine (PROzac) [...] for this visit. Pertinent Medication Side Effects: Review of Systems: CHI Feels physically well GI NEURO Restless let at night PSYCH See above / control Allergies Reviewed [...] of trial): ??Celexa ?Venlafaxine ?Fluoxetine ?Bupropion ?Risperidone ?[place]o (current at 600 mg and 900 mg [...] No data found. Musculoskeletal System: Not evaluated due to telephone call Mental Status Exam: ?? Appearance: ?? Behavior: ?? Speech: normal pitch, normal volume, normal rate and normal rhythm ?? Language: fluent in estonian ?? Mood: better today, depressed last night ?? Affect: mood-congruent ?? Thought Process: linear and logical ?? Associations: intact ?? Thought Content: denied homicidal ideation, denied suicidal ideation, no bizarre delusions and noparanoid delusions ?? Perception: denied visual hallucinations reports ongoing hearing of music ?? Orientation: grossly intact by interview ?? Attention/Concentration: able to sustain focus ?? Cognition: grossly intact by interview ?? Memory: recent and remote memory grossly intact ?? Fund of Knowledge: appropriate for age and level of functioning ?? Insight: good ?? Judgment: good Labs: Psychiatry Labs: 11/05/20 Creatinine 0.94 mg/dL 0.55-1.02 mg/dL Calcium Level 9.5 mg/dL 8.5-10.1 mg/dL Thyroid Stimulating Hormone (TSH) 1.60 uIU/mL. 12/17 lithium level .80 ( see scanned documents for details) Formulation and Assessment: Overall Formulation: Shireen Silva is a 55 y.o. Female with a history of Bipolar I and anxiety. Shehas history of SIB and SI when more depressed. Ambien is protective for sleep. Will likely benefit from re engaging in therapy. History of increased alcohol use. ?? Diagnosis: Bipolar I and anxiety NOS, alcohol use disorder CURRENT ASSESSMENT: Patient reports she had a difficult night last night. Family was not home and felt overwhelmed with pets being ill. She feels safe today. We discussed strategies to reduce this happening again. She thinks taking a Lorazepam and spending time with her dog would be means to ground self. (rare Lorazepam use) No medication changes today, could consider increase in Prozac but I am would be concerned about potential of hypomania. No side effects of current medications and taking consistently. Recent Caddo level was WNL. She is working to reduce alcohol use but not quite ready, advised caution with Ambien/Lorazepam. She will increase exercise as means to help mood. Gabapentin helpful for periodic limb movement disorder. This designer writer discussed with patient that I will be transitioning to a new role in the psychiatry department and patient will be transferred to a new psychiatric provider in 2020. We discussed transfer options and patient will be transferred to: Nkechi Joseph APRN in January 2021 PLAN: ?? Safety:?? reviewed office and emergency contact info ?? Medications: ?? Caddo: 600mg SR in AM and 900mg in PM ?? Prozac: 20mg PO daily ?? Ambien: 5mg daily ?? Ativan: 0.5mg PO daily PRN ( rare use does not need refill) ?? LABS: ?? Additional treatment recommendations: ?? Regular exercise and protect sleep ?? Follow-up:??January 2021. Safety Assessment: Denies SI/HI intent or plan though had difficult night last night with increased depression. Feels better. No hx of SA. No psychiatric hospitalizations. . Protective factors include:family and community support, engaged in medical and/or mental health care and future orientation. We carefully reviewed office and emergency contact info and when to contact our crisis line at . Patient Instruction/Education provided: Patient provided verbal instructions regarding medication side effects, safety plan in case of feeling unsafe. Patient understands the plan? Yes Signed By: Zhanna Mistry APRN documented in this encounter Plan of Treatment Upcoming Encounters Date Type Specialty Care Team Description 06/30/2022 TH Visit (TeleHealth) Psychiatry Ashtyn Joseph APRN [facility] [address] [place] [address] (Wo rk) documented as of this encounter Visit Diagnoses Diagnosis Bipolar I disorder with depression Bipolar I disorder, most recent episode (or current) depressed, unspecified documented in this encounter Care Teams Field Crop Farmer Relationship Specialty Start Date End Date Virginie Gudino APRN PCP - General Family Medicine 06/16/18 [address] [place] [address] documented as of this encounter
--- OUTSIDE RECORDS SUMMARY | 2022-05-26 22:00 | XMS_ITS | Encounter Summary ---
:1965 Author Organization [facility] [place] [address] Care Team Providers Name Role Phone Virginie Gudino APRN Primary Care Provider Encounter Details Date Type Department Care Team Description 10/11/2018 Clinical Support Gastroenterology at [facility] Christiano Small intestinal [facility] [place] [address] [place] [address] [place] [address] Social History Tobacco Use Types Packs/Day Years Used Date Never Smoker Smokeless Tobacco: Never Used Alcohol Use Standard Drinks/Week Comments No 0 (1 standard drink = 0.6 oz pure alcoho l) Sex Assigned at Date Recorded Female 02/11/2021 8:25 PM EDT documented as of this encounter Last Filed Vital Signs Vital Sign Reading Time Taken Comments Blood Pressure 122/63 10/11/2018 1:10 PM EST Pulse 52 10/11/2018 1:10 PM EST Temperature - - Respiratory Rate - - Oxygen Saturation - - Inhaled Oxygen Concentration - - Weight 70.8 kg (156 lb 1.6 oz) 10/11/2018 1:10 PM EST Height 167.6 cm (5' 6) 10/11/2018 1:10 PM EST Body Mass Index 25.19 10/11/2018 1:10 PM EST documented in this encounter Progress Notes Sandra Alvarado RD - 10/11/2018 1:30 PM EST Nutrition Seeing patient for follow up s/p successful treatment of sibo Wt Readings from Last 5 Encounters: 10/11/18 70.8 kg (156 lb 1.6 oz) 10/11/18 70.8 kg (156 lb 1.6 oz) 07/26/18 70.8 kg (156 lb) 07/26/18 70.8 kg (156 lb) 05/10/18 76.2 kg (168 lb) Ht Readings from Last 5 Encounters: 10/11/18 167.6 cm (5' 6) 10/11/18 167.6 cm (5' 6) 07/26/18 167.6 cm (5' 6) 07/26/18 167.6 cm (5' 6) 05/10/18 167.6 cm (5' 5.98) Body mass index is 25.19 kg/m??. GI: Usually more on constipated side, but menstruation gives her diarrhea Evaluation: Was treated for sibo and responded but is having constipation. She is maintaining glutenfree because she feels like she doesn't tolerate it. She added the almond milk to her diet. 20 grams fiber daily We discussed ways to help control constipation with diet. Adequate fluid intake daily and cautious increase on dietary fiber due to history of sibo. Recommendations/Plan: 1. Try to get adequate fiber without affecting sibo (now in remission) 2. Adequate daily fluid intake 3. Liberalize diet a little per preferences 4. Come back to see me as needed (on same day as Tracia) documented in this encounter Plan of Treatment Upcoming Encounters Date Type Specialty Care Team Description 06/30/2022 TH Visit (TeleHealth) Psychiatry Ashtyn Joseph APRN [facility] [address] [place], [place] [address] (Wo rk) documented as of this encounter Visit Diagnoses Diagnosis Small intestinal bacterial overgrowth documented in this encounter Care Teams Gamer Relationship Specialty Start Date End Date Virginie Gudino APRN PCP - General Family Medicine 06/16/18 [address] [place] [address] documented as of this encounter
--- OUTSIDE RECORDS SUMMARY | 2022-05-26 22:00 | XMS_ITS | Encounter Summary ---
:1965 Author Organization [facility] [place] [place] [address] Care Team Providers Name Role Phone TereseVirginie DANNA Primary Care Provider Encounter Details Date Type Department Care Team Description 02/18/2021 TH Visit Psychiatry and Laura Joseph Bipolar I disorder with depression (Primary Dx); (TeleHealth) Behavioral Health at DANNA [place] Anxiety [facility] [address] [facility] [place] [phone] Social History Tobacco Use Types Packs/Day Years Used Date Never Smoker Smokeless Tobacco: Never Used Alcohol Use Standard Drinks/Week Comments No 0 (1 standard drink = 0.6 oz pure alcoho l) Sex Assigned at Date Recorded Female 02/11/2021 8:25 PM EDT documented as of this encounter Progress Notes Laura Joseph APRN - 02/18/2021 9:30 AM EDT ESTABLISHED ADULT PATIENT OFFICE VISIT NOTE Shireen Silva gave permission for and was seen for today's appointment with a Telephone Office Visit. During this visit they were located in [place]. Shireen Ricardo is aware that for any urgent matter theycan call [phone]. Time Spent: 25 minutes Attendee(s): Shireen Ricardo Identifying information: Shireen Silva is a 55 y.o. female with history of Bipolar I disorder with r/o MALVIN. She transferred to Zhanna Mistry APRN from Dr. Villalobos March 2020. She is here for ongoing follow up. Chief Complaint: here for follow up History of Present Illness: () (Quality, Severity, Duration, Timing, Context, Modifying factors, Associated S&S) Psychiatric Symptoms: ??? Had a few 'off' days-overwhelmed but did take Ativan and feels like it was helpful. Did not resort to cutting. ??? Feels a bit tired about 1-2 hours after taking Ativan though is able to sleep if needed ??? Sleep is overall good with Ambien Health Changes: ?? Exercising-walked with over the weekend Work/Life/Family Updates: ?? 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 Visiting parents/father in law/son for [employer] in [place], [place]. Will cook with son for the holiday-will be first time seeing her mom since her heart attack in Oct. Substance Use: no change (minimal ETOH intake) Safety: denies SI/HI Pertinent Medication Side Effects: denied Questionnaires: PHQ9 Questionnaires Data (Clinic and Pt Entered): last 4 values PHQ-9 QUESTIONNAIRE LAST 4 VALUES (AMB) 08/04/2019 09/03/2019 01/17/2021 02/12/2021 PHQ - 9 Score (Patient) 5 (Mild Depression) 3 (Minimal Depression) 17 (Moderately Severe Depression)8 (Mild Depression) Little interest or pleasure (Patient) Several days Several days Nearly every day More than half the days Down, depressed, hopeless (Patient) Several days Not at all Nearly every day More than half the days Trouble sleeping (Patient) Not at all Not at all Several days Not at all Tired or no energy (Patient) Several days Several days More than half the days More than half the days Poor appetite or overeating (Patient) Not at all Not at all Several days Not at all Feeling like a failure (Patient) Several days Not at all More than half the days More than half the days Trouble concentrating (Patient) Several days Several days More than half the days Not at all Moving or speaking slowly (Patient) Not at all Not at all Several days Not at all Would be better off (Patient) Not at all Not at all More than half the days Not at all GAD7 Questionnaires Data: last 4 values MALVIN-7 Patient Reported Responses 08/04/2019 09/03/2019 01/17/2021 02/12/2021 Nervous, anxious (Patient) Several days Several days More than half the days Several days Unable to stop worrying (Patient) Several days Several days Several days Several days Worrying about different things (Patient) Several days Several days Several days Not at all Trouble relaxing (Patient) Several days Not at all Several days Several days Restless (Patient) Not at all Not at all Several days Not at all Easily annoyed, irritable (Patient) Not at all Not at all Several days Not at all Afraid something awful will happen (Patient) Not at all Not at all Several days Not at all Difficulty (Patient) Somewhat difficult Somewhat difficult Very difficult Somewhat difficult MALVIN-7 Score (Patient) 4 (Minimal Anxiety) 3 (Minimal Anxiety) 8 (Mild Anxiety) 3 (Minimal Anxiety) Current Medications: Current Outpatient Medications Medication Sig Dispense Refill ??? ferrous sulfate 324 mg (65 mg iron) Tablet, Delayed Release (E.C.) Take 324 mg by mouth. ??? lithium CR (Lithobid) 300 mg Tablet Sustained Release TAKE 2 TABLETS BY MOUTH EVERY MORNING AND 3 TABLETS IN THE EVENING 150 tablet 5 ??? FLUoxetine (PROzac) 20 mg Capsule Take 1 capsule by mouth daily. 30 capsule 5 ??? zolpidem (Ambien) 5 mg Tablet Take 0.5-1 tablets by mouth nightly as needed for Sleep. 30 tablet3 ??? gabapentin (Neurontin) 300 mg Capsule Take 600 mg by mouth nightly. ??? LORazepam (Ativan) 0.5 mg Tablet Take 1 tablet by mouth every 6 hours as needed for Anxiety. 30 tablet 0 ??? cetirizine (ZYRTEC) 10 mg [...] trials: ?? Celexa ?Venlafaxine ?Fluoxetine ?Bupropion ?Risperidone ?[place]a (current at 600 mg and 900 mg [...] and normal rhythm ?? Language: fluent in jordanian ?? Mood: 'pretty good' ?? Affect: full ?? Thought Process: linear [...] 12/17/20 lithium level .80 Reviewed symptoms of Nachusa toxicity, including tremor/changes in muscle control (ataxia), [...] who verbalizes depression as her baseline. She is doing overall quite well at this time, reporting bouts of feeling overwhelmed but no overt suicidal ideations. She has a good support system and is a positive person in general. Appetite is good, sleep is good, denied anhedonia with future plans of making cards, visiting family. SI/HI denied. Safety Assessment: Shireen Silva denies suicidal and homicidal ideation. Protective factors include: family and community support and engaged in medical and/or mental health care. We carefully reviewed office and emergency contact info and when to contact our crisis line at . PLAN: ?? Medications instructions below: Nachusa 600 mg AM, 900 mg HS Ambien 2.5 mg-5 mg HS PRN Prozac 20 mg qd Ativan 0.5 mg PRN (last filled 10/19) ?? Additional treatment recommendations: ?? Therapy: not currently interested ?? Labs: n/a Patient Instruction/Education provided: Patient provided verbal instructions regarding medication side effects, safety plan in case of feeling unsafe. Patient understands the plan? Yes Signed By: Laura Joseph APRN 02/18/2021 documented in this encounter Plan of Treatment Upcoming Encounters Date Type Specialty Care Team Description 06/30/2022 TH Visit (TeleHealth) Psychiatry Ashtyn Joseph APRN [facility] [address] [place], [place] [address] (Wo rk) documented as of this encounter Visit Diagnoses Diagnosis Bipolar I disorder with depression - [facility] Bipolar I disorder, most recent episode (or current) depressed, unspecified Anxiety Anxiety state, unspecified documented in this encounter Care Teams Hydrographic Surveyor Relationship Specialty Start Date End Date Virginie Gudino APRN PCP - General Family Medicine 06/16/[address] [place] [address] documented as of this encounter
--- OUTSIDE RECORDS SUMMARY | 2022-05-26 22:00 | XMS_ITS | Encounter Summary ---
:1965 Author Organization [facility] [place] [address] Care Team Providers Name Role Phone Virginie Gudino APRN Primary Care Provider Encounter Details Date Type Department Care Team Description 12/10/2018 External Results Psychiatry and Behavioral Provider, [facility] [place] [phone] Social History Tobacco Use Types Packs/Day Years Used Date Never Smoker Smokeless Tobacco: Never Used Alcohol Use Standard Drinks/Week Comments No 0 (1 standard drink = 0.6 oz pure alcoho l) Sex Assigned at Date Recorded Female 02/11/2021 8:25 PM EDT documented as of this encounter Plan of Treatment Upcoming Encounters Date Type Specialty Care Team Description 06/30/2022 TH Visit (TeleHealth) Psychiatry Mohan Joseph APRN [facility] [address] [place], [place] [address] (Wo rk) documented as of this encounter Procedures Procedure Name Priority Date/Time Associated Diagnosis Comme nts LAB SCAN Routine 01/19/2018 documented in this encounter Results Scan Doc: Lab (01/19/2018) Narrative This result has an attachment that is no t available. Scanning Provider MEDIA MGR SCAN EXT ORDR/RSLT documented in this encounter Visit Diagnoses Not on filedocumented in this encounter Care Teams Veterans' Counselor Relationship Specialty Start Date End Date Virginie Gudino APRN PCP - General Family Medicine 06/16/18 [address] [place] [address] documented as of this encounter
--- OUTSIDE RECORDS SUMMARY | 2022-05-26 22:00 | XMS_ITS | Encounter Summary ---
:1965 Author Organization [facility] [place] [address] Care Team Providers Name Role Phone TreeseVirginie DANNA Primary Care Provider Encounter Details Date Type Department Care Team Description 04/22/2021 TH Visit Psychiatry and Laura Joseph [facility] er for therapeutic drug level monitoring (Primary Dx); (TeleHealth) Behavioral Health DANNA Messina Bipolar I disorder with depression; at [facility] Anxiety; 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 During this visit they were located in [place]. Shireen Silva is aware that for any urgent matter they cancall [phone]. Time Spent: 30 minutes Attendee(s): Shireen Silva Identifying information: Shireen Silva is a 55 y.o. female with history of Bipolar I disorder with r/o MALVIN. She transferred to Zhanna Mistry APRN from Dr. Villalobos March 2020. She is here for ongoing follow up. Chief Complaint: here for follow up History of Present Illness: () (Quality, Severity, Duration, Timing, Context, Modifying factors, Associated S&S) Psychiatric Symptoms: ??? Sleep is good-using Ambien nightly ??? Anxiety 'not too bad'-about one week ago after she fell she took an Ativan for anxiety -hallucinations 'okay'-exacerbated in February when drinking heavily. Had seen butterflies in the driveway but then they were gone -No ETOH in one month -SI in February-had called crisis at that time (no notes of this though) Health Changes: ? Had a fall last week-hit side and is sore from that. Tripped over a cord. ?? Has stopped drinking (has not had a drink in almost a month)-using an willard through [employer]-has been able to connect with others ?? 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 Celexa ?Venlafaxine ?Fluoxetine ?Bupropion ?Risperidone ?[place] (current at 600 mg and 900 mg [...] one car. She is on disability for BPD1. Notes [...] and normal rhythm ?? Language: fluent in swedish ?? Mood:'pretty good' ?? Affect: full ?? Thought Process: [...] 12/17/20 lithium level .80 Reviewed symptoms of [place] toxicity, including tremor/changes in muscle control (ataxia), [...] is doing overall quite well at this time and notes an improvement in mood since she stopped drinking alcohol. We discussed her continuing this change and she is hopeful she can continue abstinence, though does not talk to her much about this. She has a good support system and is a positive person in general. Safety Assessment: Shireen Silva denies suicidal and homicidal ideation. Protective factors include: family and community support and engaged in medical and/or mental health care. We carefully reviewed office and emergency contact info and when to contact our crisis line at . PLAN: ?? Medications instructions below: [place] 600 mg AM, 900 mg HS Ambien 2.5 mg-5 mg HS PRN Prozac 20 mg qd Ativan 0.5 mg PRN (last filled 10/19) ?? Additional treatment recommendations: ?? Therapy: not currently interested ?? Labs: Will complete TSH, Li, and CMP prior to next visit Patient Instruction/Education provided: Patient provided verbal instructions regarding medication side effects, safety plan in case of feeling unsafe. Patient understands the plan? 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
--- OUTSIDE RECORDS SUMMARY | 2022-05-26 22:00 | XMS_ITS | Encounter Summary ---
:1965 Author Organization [facility] [address] Care Team Providers Name Role Phone Terese Virginie DANNA Primary Care Provider Reason for Visit Reason Comments Bipolar Disorder Encounter Details Date Type Department Care Team Description 06/27/2019 Office Visit Psychiatry and Zhanna Mistry, Bipolar affective Behavioral Health at [facility] disorder, remission [facility] status unspecified [facility] [place] [address] [place], [place] [phone] (Work) [phone] Social History Tobacco Use Types Packs/Day Years [...] Mass Index 24.22 06/27/2019 1:41 PM EDT documented in this encounter Progress Notes Zhanna Mistry, FARM PRODUCT PURCHASER - 06/27/2019 2:00 PM EDT Psychiatry Outpatient Evaluation Location: office Time Spent: 20 min Referral Source: Dr. Villalobos Information Source: Patient Identifying information: Shireen Silva is a 54 y.o. female with history of Bipolar I disorder with R/O MALVIN. She is here as a transfer from Dr. Villalobos. Chief Complaint: should I go up on my Prozac? History of Presenting Illness: Shireen tells me she can't stay long because she has to get her car back for her son to go to work. Shireen tells me that the lithium helps keep her mood steady. She is taking lithium since 2004. She denies any side effects. She reports that treatment with her depression in the past resulted in a manic episode. She notes when she is manic she does not sleep well and spend money excessively can be more impulsive. She has never been hospitalized during a manic episode. She does report sometimes hearing music that is not distressing she is currently on disability for her bipolar disorder. Prozac was started by Dr. Villalobos at her last meeting to help with anxiety and depression. Shireen is pleased by the fact that she feels better. Denies symptoms of diana. She is also surprised that she is not having any suicidal ideation or cutting behavior ( shows me scars on arms when cutting was moreactive). She had been taking more Ativan but since the Prozac she does not need it. She did have some anxiety this AM. She endorses not liking having to wait which can increase anxiety. She continues to sleep well with 7-8 hours of sleep. She tells me that her therapist moved and then she lost her insurance and she has not been back intotherapy. She says sometimes is hard for her to show is really wrong. Can mask when she is suffering.Relates this to her upbrining. She has some small bowel with diarrhea that has been an issue off and on. Questionnaires: PHQ9 Questionnaires Data (Clinic and Pt Entered): last 4 values PHQ-9 QUESTIONNAIRE LAST 4 VALUES (AMB) 01/04/2019 03/08/2019 04/12/2019 06/24/2019 PHQ - 9 Score (Patient) 7 (Mild Depression) 9 (Mild Depression) 10 (Moderate Depression) 5 (Mild Depression) Little interest or pleasure (Patient) Several days Several days Several days Several days Down, depressed, hopeless (Patient) Several days More than half the days More than half the days Several days Trouble sleeping (Patient) Not at all Not at all Several days Not at all Tired or no energy (Patient) More than half the days Several days Several days Several days Poor appetite or overeating (Patient) Not at all Several days Several days Not at all Feeling like a failure (Patient) Several days More than half the days More than half the days Several days Trouble concentrating (Patient) Several days Several days Several days Several days Moving or speaking slowly (Patient) Not at all Not at all Not at all Not at all Would be better off (Patient) Several days Several days Several days Not at all GAD7 Questionnaires Data: last 4 values MALVIN-7 Patient Reported Responses 01/04/2019 03/08/2019 04/12/2019 06/24/2019 Nervous, anxious (Patient) More than half the days Several days Nearly every day Several days Unable to stop worrying (Patient) Several days More than half the days Nearly every day Several days Worrying about different things (Patient) Several days More than half the days Nearly every day Several days Trouble relaxing (Patient) Several days Several days More than half the days Several days Restless (Patient) Not at all Not at all Not at all Not at all Easily annoyed, irritable (Patient) Several days Several days Several days Not at all Afraid something awful will happen (Patient) Several days Several days More than half the days Not at all Difficulty (Patient) Somewhat difficult Somewhat difficult Very difficult Somewhat difficult MALVIN-7 Score (Patient) 7 (Mild Anxiety) 8 (Mild Anxiety) 14 (Moderate Anxiety) 4 (Minimal Anxiety) Current Medications: Current Outpatient Medications Medication Sig Dispense Refill ??? lithium (LITHOBID) 300 mg Tablet Sustained Release TAKE 2 TABLETS BY MOUTH EVERY MORNING AND 3 TABLETS IN THE EVENING 150 tablet 3 ??? LORazepam (ATIVAN) 0.5 mg Tablet Take 1 tablet by mouth every 6 hours as needed for Anxiety. 30 tablet 0 ??? FLUoxetine (PROZAC) 10 mg Capsule Take one tablet by mouth daily, after 10 days can increase to two tablets daily. 60 capsule 2 ??? zolpidem (AMBIEN) 5 mg Tablet Take [...] for this visit. Pertinent Medication Side Effects: None reported Past Psychiatric history and treatment: Per Dr. Villalobos transfer note 04/14/19 Brief formulation/assessment of patient: Shireen Silva??is a 53 y.o.??Female??with??hx of??bipolardisorder with a history of manic episodes (however never hospitalization), with mood more recently being predominately depressed. She has a long history of being followed on this clinic and has been onlithium for many years. She has a history of cutting, and reports she has started to cut more in theSp of 2018. She lives with her and has three sons. She is currently trying to re-engage in therapy. ?? Prior medications trials (dosage, response, side effects, adequacy of trial): Citalopra-= ?Venlafaxine ?Fluoxetine ?Bupropion ?Risperidone ?[place] (current at 600 mg and 900 mg daily) ?Oxcarbazepine ?Clonazepam ?Lorazepam ?Zolpidem (current at 5 mg nightly PRN insomnia) ?Eszopiclone ?Lurasidone 2017 - felt it made her mood worse ? Allergies: No Known Allergies Substance Use: She reports drinking 1-3 glasses of wine at night, she would like to cut back. We discuss strategiesfor this ( putting water in wine, reducing amount slowly). She doesn't like weight gain from it. Family History: Note evaled due to time Developmental History: Note evaled due to time Social History: She is to [place]. They have 3 sons. Her 18yo and 25 yo live with her. Describes that just retired. They all have to share one car. 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 Notes growing up in family that didn't express emotions easily she can internalize this. Trauma History: Note evaled due to time Past Medical History: Past Medical History: Diagnosis Date ??? Anxiety disorder ??? Mood disorder Vitals (24hr Range): Patient Vitals for the past 24 hrs: Pulse Resp BP 06/27/19 1341 63 18 123/66 Musculoskeletal System: normal gait and balance and ambulates independently Mental Status Exam: ?? Appearance: age appropriate, well dressed and well groomed ?? Behavior: cooperative with the interview and good eye contact ?? Speech: normal pitch, normal volume, normal rate and normal rhythm ?? Language: fluent in macanese ?? Mood: I am better ?? Affect: mood-congruent ?? Thought Process: linear and logical ?? Associations: intact ?? Thought Content: denied homicidal ideation, denied suicidal ideation, no bizarre delusions and noparanoid delusions ?? Perception: denied auditory hallucinations denied visual hallucinations not observed responding to internal stimuli ?? Orientation: grossly intact by interview ?? Attention/Concentration: able to sustain focus and able to resist distraction ?? Cognition: grossly intact by interview ?? Memory: recent and remote memory grossly intact ?? Fund of Knowledge: appropriate for age and level of functioning ?? Insight: good ?? Judgment: good Labs: Psychiatry Labs: 04/07/2019 12:55 PM Component Value Ref Range & Units Status TSH 1.74 0.27 - 4.20 mcIU/mL 04/07/2019 12:51 PM Component Value Ref Range & Units Status [place] Lvl 0.89 <=1.20 mmol/L Final Therapeutic level for bipolar depression: 0.60-1.20 mmol/L Action Level: ?Acute toxicity: ?>4.00 mmol/L ?Chronic toxicity: ??>1.50 mmol/L Values greater than or equal to the action level necessitate clinical intervention. ??Values less than this level may necessitate intervention based on clinical condition of the patient. Ref: ??Goldfrank???s Toxicologic Emergencies 6th ed 1997; p. 967 04/07/2019 12:55 PM Component Value Ref Range & Units Status Glucose Lvl 114 65 - 199 mg/dL Final Diabetes: >=200 mg/dL plus symptoms BUN 21High 8 - 18 mg/dL Final Creatinine 0.83 0.70 - 1.20 mg/dL Final Sodium 142 135 - 145 mmol/L Final Potassium 3.9 3.5 - 5.0 mmol/L Final Please note: ??Patients with WBC >100,000 may have falsely elevated Potassium levels. ??For accurate Potassium quantification in these patients send serum separator tube (gold top) for subsequent determinations. ??Contact the Clinical Chemistry Laboratory if there are any questions. Chloride 105 98 - 107 mmol/L Final CO2 27 22 - 31 mmol/L Final Anion Gap 10 5 - 15 mmol/L Final Calcium 10.4 8.5 - 10.5 mg/dL Final eGFR 82 >=60 mL/min/1.73 m?? Formulation and Assessment: Shireen Silva is a 54 y.o. Female with a history of Bipolar I and anxiety. Brief eval today will collect more information at follow up. She feels prozac is working well. No evidence of diana or s/e ofmedications. We will continue. She is interested in increasing prozac further but agrees to wait till follow up given potential for activation. . No ativan use since statring and feleing much better. She has history of SIB and SI when more depressed. Ambien is protective for sleep. Continue medications for now. Will likely benefit from re engaging in therapy. She would like to reduce etoh use which Isupport, suggest slowly reducing over time and if difficult I could discuss further treatment options. March 2019 Labs with lithium Level, BMP and TSH are WNL. Diagnosis: Bipolar disorder, R/O MALVIN Safety Assessment: Denies SI/HI intent or plan. SIB in the past ( in last year). None currently. No hx of SA. No psychiatric hospitalizations. PLAN: ?? Safety: reviewed office and emergency contact info ?? Medications: ?? [place]: 600mg SR in AM and 900mg in PM ?? Prozac: 10mg PO daily ?? Ambien: 5mg daily ?? Additional treatment recommendations: consider CBT/DBT, reduce etoh slowly ( 1 drink reduction per week) ?? Follow-up: 4-8 weeks ?? Labs ordered: none Referrals: none Next appointment: 08/08/19 Patient Instruction/Education provided: Patient provided verbal instructions regarding medication side effects, safety plan in case of feeling unsafe. We discussed that I am available via my-D-H, but that I do not check this daily, and should not be used in case of emergency. We have reviewed crisis numbers to call in case of emergency. We discussed limits to confidentiality, which include breaking confidentiality in the case of concern for imminent danger to self, someone else (including child and elder abuse) or if records are subpoenaed by a manager of clinical. We also discussed that notes can be read by other clinicians and staff involved in the patient's care. Patient understands the plan? Yes Signed By: Zhanna Mistry APRN 06/27/2019 documented in this encounter Plan of Treatment Upcoming Encounters Date Type Specialty Care Team Description 06/30/2022 TH Visit (TeleHealth) Psychiatry Ashtyn Joseph APRN [facility] [address] [place], [place] [address] (Wo rk) documented as of this encounter Visit Diagnoses Diagnosis Bipolar affective disorder, remission st atus unspecified documented in this encounter Care Teams Shipfitter Helper Relationship Specialty Start Date End Date Virginie Gudino APRN PCP - General Family Medicine 06/16/18 [place] [address] documented as of this encounter
--- OUTSIDE RECORDS SUMMARY | 2022-05-26 22:00 | XMS_ITS | Encounter Summary ---
:1965 [place] [address] Care Team Providers Name Role Phone MariettaVirginie ventura DANNA Primary Care Provider Encounter Details Date Type Department Care Team Description 07/23/2020 TH Visit Psychiatry and Zhanna Mistry, Bipolar affective disorder, remission status unspecified; (TeleHealth) Behavioral Health at [facility] [place] [address] [place] [address] [place], [place] [phone] (Work) [phone] Social History Tobacco Use Types Packs/Day Years Used Date Never Smoker Smokeless Tobacco: Never Used Alcohol Use Standard Drinks/Week Comments No 0 (1 standard drink = 0.6 oz pure alcoho l) Sex Assigned at Date Recorded Female 02/11/2021 8:25 PM EDT documented as of this encounter Progress Notes Zhanna Mistry APRN - 07/23/2020 1:00 PM EDT ESTABLISHED ADULT PATIENT OFFICE VISIT NOTE Shireen Silva gave permission for and was seen for today's appointment with a Telephone Office Visit. During this visit they were located in [place]. Shireen Silva is aware that for any urgent matter theycan call [phone]. (prefers telephone to telehealth) Time Spent: 30 [...] 55 y.o. female Psychiatric Symptoms: ?? Mood: not a lot of motivation. Motivation is low. Rates depression: 10 ?? Does continue to exercise ?? Anxiety: little anxious today because her has day off. When things are unpredictable is hard for her. Rates anxiety as /10, infrequently uses Lorazepam. ?? We discuss recent mood changes with Flonase, she would like to avoid. She denies any symptoms of diana or hypomania, including increased goal-directed activity, grandiosity, decreased need for sleep, talkativeness, or increased energy. Notes spending too much money in past.when manic ?? She wants to do therapy, but dislikes telehealth. Will wait till when COVID19 is over Health Changes: ?? Will do sleep study in 2 weeks. Notes that falling asleep is big problem. Reports she is not getting sound sleep . Denies feeling rested ?? Still needs to do TSH, reminded her today given worsened depressive symptoms Work/Life/Family Updates: ?? Reports that children and are well. Substance Use: ?? 2-3 glasses of wine most nights. Would like to cut back eventually. Dislikes extra calories and how it affects her mood Safety: Denies SIB today, but had SIB ( cutting) when she took flonase which really bothered her. Denies urges No SI/HI intent or plan Questionnaires: PHQ9 Questionnaires Data [...] IN THE EVENING ( complete level at [facility]) 150 tablet 5 ??? FLUoxetine (PROzac) 20 mg Capsule Take 1 capsule by mouth daily. 30 capsule 5 ??? LORazepam (Ativan) 0.5 mg Tablet Take 1 tablet by mouth every 6 hours as needed for Anxiety. 30 tablet 0 ??? bismuth subsalicylate (PEPTO-BISMOL) 262 mg/15 mL [...] this visit. Pertinent Medication Side Effects: Denies issues with [place] Review of Systems: CONST Feels well GI [...] of trial): ??Celexa ?Venlafaxine ?Fluoxetine ?Bupropion ?Risperidone ?[place] (current at 600 mg and 900 mg [...] to telephone call Mental Status Exam: ?? Speech: normal pitch, normal volume, normal rate and normal rhythm ?? Language: fluent in swedish ?? Mood: more down ?? Affect: mood-congruent ?? Thought Process: linear [...] good ?? Labs: Psychiatry Labs: Date: 03/15/20 [place]: 1.00 Creatinine: .84 BUN: 19 ( H) [...] NOS, alcohol use disorder CURRENT ASSESSMENT: Mood more down. Suspects Flonase was cause of worsened mood symptoms earlier this summer including SIB. Feels this is resolving ( SIB recently). No TSH in over year. She will outreach to PCP to complete ( her preference), thyroid may be contributing to mood symptoms. She will also have sleep study to learn about sleep challenges. She is contemplative about reducing alcohol use. Will wait to do psychotherapy until COVID19 is over. PLAN: ?? Safety:?? reviewed office and emergency contact info ?? Medications: ?? [place]: 600mg SR in AM and 900mg in PM ?? Prozac: 20mg PO daily ?? Ambien: 5mg daily ?? Ativan: 0.5mg PO daily PRN ( rare use does not need refill) ?? LABS: [place] level and BMP in 6 months, due August 2020 ?? Additional treatment recommendations: consider psychotherapy after COVID19, follow up with PCP about TSH and sleep study ?? Regular exercise ?? Follow-up:??3 months Safety Assessment: Denies SI/HI intent or plan. SIB when taking Flonaze. None currently. No hx of SA. No psychiatric hospitalizations. Patient Instruction/Education provided: Patient provided verbal instructions regarding medication side effects, safety plan in case of feeling unsafe. Patient understands the plan? Yes Signed By: Zhanna Mistry APRN documented in this encounter Plan of Treatment Upcoming Encounters Date Type Specialty Care Team Description 06/30/2022 TH Visit (TeleHealth) Psychiatry Ashtyn Joseph APRN [facility] [address] [place], [place] [address] (Wo rk) documented as of this encounter Visit Diagnoses Diagnosis Bipolar affective disorder, remission st atus unspecified Anxiety Anxiety state, unspecified documented in this encounter Care Teams Assistant Laboratory Director Relationship Specialty Start Date End Date Virginie Gudino APRN PCP - General Family Medicine 06/16/18 [address] [place] [address] documented as of this encounter
--- OUTSIDE RECORDS SUMMARY | 2022-05-26 22:00 | XMS_ITS | Encounter Summary ---
:1965 Author Organization [facility] [place] [address] Care Team Providers Name Role Phone Virginie Gudino APRN Primary Care Provider Reason for Visit Reason Onset Date Comments Medication Refill 02/23/2019 Encounter Details Date Type Department Care Team Description 02/23/2019 Refill Psychiatry and Behavioral Elin cates, Laura Mar MD [facility] Yg bae[place] [address] [place] [address] [phone] (Lashanda franco) Social History Tobacco Use Types [...] TH Visit (TeleHealth) Psychiatry Ashtyn Joseph APRN [facility] [address] [place], [place] [address] (Wo rk) documented as of this encounter Visit Diagnoses Not on filedocumented in this encounter Care Teams Supervisor Payroll Relationship Specialty Start Date End Date Virginie Gudino APRN PCP - General Family Medicine 06/16/18 [place] [address] documented as of this encounter
--- OUTSIDE RECORDS SUMMARY | 2022-05-26 22:00 | XMS_ITS | Encounter Summary ---
:1965 Author Organization [facility] [place] [address] Care Team Providers Name Role Phone Virginie Gudino APRN Primary Care Provider Reason for Visit Reason Onset Date Comments Medication Refill 03/09/2021 Encounter Details Date Type Department Care Team Description 03/09/2021 Refill Psychiatry and Behavioral Zhanna Mistry APRN Health at [facility], [place] [place] [address] [place] [address] [phone] Social History Tobacco Use Types Packs/Day Years [...] TH Visit (TeleHealth) Psychiatry Mohan Joseph APRN [facility] [address] [place], [place] [address] (Wo rk) documented as of this encounter Visit Diagnoses Not on filedocumented in this encounter Care Teams Nurse Aide Relationship Specialty Start Date End Date Virginie Gudino APRN PCP - General Family Medicine 06/16/18 [place] [address] documented as of this encounter
--- OUTSIDE RECORDS SUMMARY | 2022-05-26 22:00 | XMS_ITS | Encounter Summary ---
:1965 Author Organization [facility] [place] [address] Care Team Providers Name Role Phone Virginie Gudino APRN Primary Care Provider Encounter Details Date Type Department Care Team Description 04/14/2019 Notes Only Psychiatry and Behavioral Laura Francisco MD Health at [facility] [place] [address] [place] [address] [phone] (Wo rk) Social History Tobacco Use Types Packs/Day Years Used Date Never Smoker Smokeless Tobacco: Never Used Alcohol Use Standard Drinks/Week Comments No 0 (1 standard drink = 0.6 oz pure alcoho l) Sex Assigned at Date Recorded Female 02/11/2021 8:25 PM EDT documented as of this encounter Progress Notes Laura Villalobos MD - 04/14/2019 1:22 PM EDT Termination/Transfer note Treatment termination/transfer date: May 2019 Diagnosis: Bipolar disorder, R/O MALVIN Brief formulation/assessment of patient: Shireen Silva is a 53 y.o. Female with hx of bipolar disorder with a history of manic episodes (however [...] is currently trying to re-engage in therapy. Current medications: Current Outpatient Medications Medication Sig Dispense Refill [...] No current facility-administered medications for this visit. Prior medication trials (dose, efficacy, side effects, adequacy of trial): Citalopram ?Venlafaxine ?Fluoxetine ?Bupropion ?Risperidone ?[place] (current at 600 mg and 900 mg daily) ?Oxcarbazepine ?Clonazepam ?Lorazepam ?Zolpidem (current at 5 mg nightly PRN insomnia) ?Eszopiclone ?Lurasidone 2017 - felt it made her mood worse Allergies: Allergies as of 04/14/2019 ??? (No Known Allergies) Brief treatment Summary: She was continued on lithium. When she initially saw me she reported that she did not like latuda as she felt it made her mood worse, so it was discontinued. More recently she reported an increase in anxiety and a slight worsening of depression, and so she restarted prozac with a slow titration. Notable Treatment Events: patient reported more cutting on visit in Mar, 2019. Possible Future Considerations: If the patient does not respond well to prozac, I would question hermore about her prior trials of antidepressants and either switch antidepressant or consider augmenting agent. Per chart she has been on wellbutrin relatively recently however I am not sure why she stopped it and if it was helpful or not. Clinician responsible for ongoing care: Zhanna Mistry APRN documented in this encounter Plan of Treatment Upcoming Encounters Date Type Specialty Care Team Description 06/30/2022 TH Visit (TeleHealth) Psychiatry Ashtyn Joseph APRN [facility] [address] [place], [place] [address] (Wo rk) documented as of this encounter Visit Diagnoses Not on filedocumented in this encounter Care Teams Machine Clipper Relationship Specialty Start Date End Date Virginie Gudino APRN PCP - General Family Medicine 06/16/18 [address] [facility] [place] [address] documented as of this encounter
--- OUTSIDE RECORDS SUMMARY | 2022-05-26 22:00 | XMS_ITS | Encounter Summary ---
:1965 Author Organization [facility] [place] [address] Care Team Providers Name Role Phone None Primary Care Provider Unavailable Encounter Details Date Type Department Care Team Description 07/20/2017 Office Visit Psychiatry and Laura Villalobos disorder, Behavioral Health at [facility] current episode [facility] depressed, severe, [facility] [address] PSYCHIATRY features [place] [phone] Social History Tobacco Use Types Packs/Day Years Used Date Never Smoker Alcohol Use Standard Drinks/Week Comments No 0 (1 standard drink = 0.6 oz pure alcoho l) Sex Assigned at Date Recorded Female 02/11/2021 8:25 PM EDT documented as of this encounter Last Filed Vital Signs Vital Sign Reading Time Taken Comments Blood Pressure 130/78 07/20/2017 10:25 AM EDT Pulse 57 07/20/2017 10:25 AM EDT Temperature - - Respiratory Rate - - Oxygen Saturation - - Inhaled Oxygen Concentration - - Weight 85.3 kg (188 lb) 07/20/2017 10:25 AM EDT Height 167.6 cm (5' 6) 07/20/2017 10:25 AM EDT Body Mass Index 30.34 07/20/2017 10:25 AM EDT documented in this encounter Progress Notes Demetrius Deng MD - 07/20/2017 10:30 AM EDT PSYCHIATRY TEACHING PHYSICIAN INVOLVEMENT Location: Adult Psychiatry Medication Clinic, [facility] Attending Physician: Demetrius Deng MD Resident [...] 52 y.o. female with h/o bipolar disorder. Feels increase in Latuda to 60mg hasn't been so helpful - would like to try lithium monotherapy and talk therapy alone. Agreeable to slow taper of Latuda (is now on 40mg, will go down to 20mg). Started volunteer work which is helpful. No SI or HI. No substance abuse - no alcohol at this time. 03/05/17 lithium 0.82. Normal BMP and TSH DEMETRIUS DENG MD Laura Villalobos MD - 07/20/2017 10:30 AM EDT ESTABLISHED ADULT PATIENT OFFICE VISIT NOTE Time Spent: 60 min Attendee(s): Ms. Silva This patient was seen with Dr. Demetrius Deng See her note for confirmatory and/or revisionary documentation. HISTORY Chief Complaint: Shireen Silva is a 52 y.o. Female presents today for medication management/follow up HPI: Ok I guess, I'm not that happy with the latuda reports she had initially felt better when she started latuda but that that feeling went away, and now she feels more depressed and irritable per patient. She reports she doesn't have much motivation and that she doesn't like to have to take the pill with food. Estimates she has gained approximately 20 pounds after starting latuda during the spring, had also gained weight prior to that. - Zephyr she had been heading towards a manic episode in [address] Wolfe for the first time - was spending more. - Has been seeing a therapist every 2 weeks, has been good - has seen him less often over the summer, hasn't seen him in a month. She is planning to see him tomorrow and thinks now she will see him every 2 weeks again - recommended that she discuss this with him. - Reports she feels worse in a way than when she was on prozac. She reports she doesn't like how she feels - she reports she feels she has been overthinking things. - She reports she hasn't been drinking alcohol at all to give the latuda a fair chance - reports she stopped drinking around the beginning of the summer. - Reports she has been depressed a lot of the time for the past few weeks. Things are somewhat enjoyable at times - she reports things are more just something to do. Motivation is low. Concentration and energy are not very good. Sleep and appetite are good. She reports latuda and ambien help her to fall asleep. Estimates she sleeps 6 hours per day. - Denies recent or current thoughts/intent/plan of self harm. Pt endorses some possible passive thoughts about not wanting to be alive - she reports these thoughts don't go anywhere. - Reports that she would like to just try combination of lithium and therapy, has never tried that before. - 2 sons live at home with her, another son who is 25. Son plays trumpet. - Denies feelings of restlessness. - Just started volunteering at [facility] - wanted to see how getting out would be. Most recent PHQ9: PHQ9 07/13/2017 Little interest or pleasure Several days Down, [...] mouth nightly as needed for Sleep. 30 tablet0 ??? lithium (LITHOBID) 300 mg Tablet Sustained Release TAKE TWO TABLETS BY MOUTH EVERY MORNING AND THREE TABLETS EVERY EVENING 150 tablet 3 ??? LORazepam (ATIVAN) 0.5 mg Tablet Take 1 tablet by mouth every 6 hours as needed (panic attacks).21 tablet 3 ??? OLANZapine (ZYPREXA) 2.5 mg Tablet Take 1 tablet by mouth nightly as needed (diana). (Patient not taking: Reported on 03/23/2017) 5 tablet 0 ??? UNABLE TO FIND Reported on 03/23/2017 ??? cetirizine (ZYRTEC) 10 mg tablet Take [...] Medication Side Effects: Denies feeling of resltessness Review of Systems: Constitutional: denies fatigue Eyes: ENT: Cardiovascular: Respiratory: GI: : Musculoskeletal: Integumentary: Neurological: Psychiatric: See HPI above Endocrine: Hematologic/Lymphatic: Allergic/Immunological: No Known Allergies PFSH: () Past Medical/Psychiatric History: no interval change No psychiatric hospitalizations. Per Dr. Wolfe's note 05/12/17: Past medication trials: ?Citalopram ?Venlafaxine ?Fluoxetine ?Bupropion ?Risperidone ?[place] (current at 600 mg and 900 mg daily) ?Oxcarbazepine ?Clonazepam ?Lorazepam ?Zolpidem (current at 5 mg nightly PRN insomnia) ?Eszopiclone Lurasidone Family Psychiatric and Medical History: no interval change Social History: Son is entering senior year which she reports is exciting. 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 EXAM [05/08/14 bullets (incl VS)] Constitutional System ? Vital Signs: Blood pressure 130/78, pulse 57, height 167.6 cm (5' 6), weight 85.3 [...] Violent Thoughts: none reported/elicited Suicidality: She denies thoughts of self harm Hallucinations: none reported/elicited Delusions: none reported/elicited Obsessions: none reported/elicited ? Judgment and Insight: fair ? Mood & Affect: euthymic/affect is calm, cooperative ? Orientation: x3 ? Attention/Concentration: alert/attentive and without need for redirection ? Memory: grossly intact to recent/remote events ? Language: fluent ? Fund of Knowledge: average Psychotherapeutic Interventions and Response: n/a MEDICAL DECISION MAKING ASSESSMENT: Shireen Silva is a 52 y.o. Female with hx of bipolar disorder presenting for medicationmanagement/follow up. She reports she initially had a positive response to the trial of lurasidone, with lessening of depressive symptoms, however reports her mood then became worse. Several weeks ago we talked by phone about her decreasing the latuda dose from 60 to 40 mg. She reports she would like to try the combination of therapy and lithium without the latuda. She reports she saw her therapist less often over the summer but hopes to now see him regularly every two weeks. There are no acute safety concerns - she denies thoughts of self harm. She reports some intermittent thoughts of passive SI (thoughts about it being better off not being here) - she denies intent or plan and it seems like these thoughts are less than they have been, and she denies thoughts of self harm. Her most recent lithium level was .82 in February 2017. PLAN: - Decrease lurasidone to 20 mg nightly - She has not been taking lorazepan PRN - she requested ativan script in case if needed during the taper - 5 tablets of ativan prescribed, no refills - Continue ambien with a potential goal of one day decreasing this medication if appropriate - Labs ordered to be drawn morning of her next Psychiatry clinic visit - RTC in approximately 1 month or sooner PRN -Continue other medications without adjustment Patient Instruction/Education provided: Patient provided verbal instructions regarding treatment plan. Patient understands the plan? Yes documented in this encounter Plan of Treatment Upcoming Encounters Date Type Specialty Care Team Description 06/30/2022 TH Visit (TeleHealth) Psychiatry Ashtyn Joseph, ASSIGNMENT MANAGER [facility] PS[place]CHIATRY [place] [address] (Wo rk) documented as of this encounter Results Basic Metabolic Panel (non-fasting) (08/24/2017 9:53 AM EDT) athologist Signature Glucose Lvl 91 65 - 199 [facility] mg/dL [facility] Comment: Diabetes: >=200 mg/dL plus symp toms BUN 15 8 - 18 mg/dL [facility] Creatinine 0.77 0.70 - 1.20 mg/dL [facility] Comment: Please note that the pediatric reference intervals supplied above were not validated at [facility]. Results from pediatri c patients should be interpreted in conjunction to the patient's age, height and muscle mass. Sodium 144 135 - 145 mmol/L [facility] Potassium 3.6 3.5 - 5.0 mmol/L [facility] Comment: Please note: ??Patients with WBC >100,00 0 may have falsely elevated Potassium levels. ??For accurate Potassium quantif ication in these patients send serum separator tube (gold top) for subsequent determinations. ??Contact the Clinical Chemistry Laboratory if there are any qu estions. Chloride 107 98 - 107 mmol/L [facility] CO2 25 22 - 31 mmol/L [facility] Anion Gap 12 5 - 15 mmol/L [facility] Calcium 9.7 8.5 - 10.5 mg/dL [facility] Estimated GFR >60 >=60 [facility] Comment: This estimated GFR (eGFR) value was calc ulated using the MDRD equation which has been validated on patients between t he ages of 18 and 70. The MDRD should not be used to assess kidney function in patients < 18 years of age or in patients with extremes of body mass, or in patients with acute kidney failure. This value should be multiplied by 1.2 f or patients. For further information please copy and past e the following links into your internet browser. http://Brandicted/DHnkdep http://Brandicted/DHMCnkf Specimen Anatomical Collection Method Collection Time Receive d Time (Source) Location / / Volume Laterality Blood specimen 08/24/2017 9:53 AM 017 9:57 (specimen) EDT AM EDT Resulting Agency Comment Spec In Lab Demetrius Deng MD CHEMISTRY ORDERABLES Performing Organization Address [facility] [place] [address] [place] level (08/24/2017 9:53 AM EDT) P athologist Signature [place] Lvl 0.75 mmol/L [facility] Comment: Therapeutic level for bipolar [...] Location / / Volume Laterality Blood specimen 08/24/2017 9:53 AM 017 9:57 (specimen) EDT AM EDT Resulting Agency Comment Spec In Lab Demetrius Deng MD CHEMISTRY ORDERABLES Performing Organization Address City/[facility] [place] [address] documented in this encounter Visit Diagnoses Diagnosis Bipolar disorder, current episode depres sed, severe, without psychotic features Bipolar I disorder, most recent episode (or current) depressed, severe, without mention of psychotic behavior documented in this encounter Care Teams Library Clerical Assistant Relationship Specialty Start Date End Date None PCP - General 05/11/17 06/15/18 None documented as of this encounter
--- OUTSIDE RECORDS SUMMARY | 2022-05-26 22:00 | XMS_ITS | Encounter Summary ---
:1965 Author Organization [facility] [place] [address] Care Team Providers Name Role Phone Virginie Gudino APRN Primary Care Provider Encounter Details Date Type Department Care Team Description 08/10/2018 Orders Only Gastroenterology at [facility] Dorie Blanco, Vitamin D deficiency [facility] [place] [address] [place] [address] [facility] [place]STRO[facility] [address] Social History Tobacco Use Types Packs/Day Years [...] (TeleHealth) Psychiatry Ashtyn Joseph APRN [facility] [place] [address] [place], [place] [address] (Wo rk) documented as of this encounter Visit Diagnoses Diagnosis Vitamin D deficiency Unspecified vitamin D deficiency documented in this encounter Care Teams Ups Driver Relationship Specialty Start Date End Date Virginie Gudino APRN PCP - General Family Medicine 06/16/18 [place], [place] [id number] documented as of this encounter
--- OUTSIDE RECORDS SUMMARY | 2022-05-26 22:00 | XMS_ITS | Encounter Summary ---
:1965 Author Organization [facility] [place] [address] Care Team Providers Name Role Phone Virginie Gudino APRN Primary Care Provider Encounter Details Date Type Department Care Team Description 03/22/2019 Telephone Psychiatry and Behavioral Laura Francisco MD Health at [facility] [place] [address] [place] [address] [phone] (Wo rk) Social History Tobacco Use Types Packs/Day Years Used Date Never Smoker Smokeless Tobacco: Never Used Alcohol Use Standard Drinks/Week Comments No 0 (1 standard drink = 0.6 oz pure alcoho l) Sex Assigned at Date Recorded Female 02/11/2021 8:25 PM EDT documented as of this encounter Miscellaneous Notes Telephone Encounter - Laura Villalobos MD - 03/22/2019 9:36 AM EDT [phone] (M) I called Ms. Silva back - she had spoken to the covering physician while I was out of the office. She reports she's doing ok now but is wondering about some physical symptom. She feels like she'sbeen more tired and cold and is wondering about having her labs drawn for thyroid and lithium. At her last appointment she was to email me her recent lab draw, however that was likely more than a year ago at this time she is likely due for screening labs now. Will order the following labs: TSH and lithium T3 and T4 BUN/Cr [place] level She denies SI intent or plan, and reports she could call the crisis line and seek help if her thoughts escalated. She sounded calm and pleasant on the phone. documented in this encounter Plan of Treatment Upcoming Encounters Date Type Specialty Care Team Description 06/30/2022 TH Visit (TeleHealth) Psychiatry Ashtyn Joseph, STRETCHING MACHINE OPERATOR [facility] [address] [place], [place] [address] (Wo rk) documented as of this encounter Results (ABNORMAL) Basic Metabolic Panel (non-fasting) (04/07/2019 11:27 AM EDT) P athologist Signature Glucose Lvl 114 65 - 199 [facility] mg/dL [facility] Comment: Diabetes: >=200 mg/dL plus symp toms BUN 21 (H) 8 - 18 mg/dL [facility] Creatinine 0.83 0.70 - 1.20 mg/dL [facility] Sodium 142 135 - 145 mmol/L [facility] Potassium 3.9 3.5 - 5.0 mmol/L [facility] Comment: Please note: ??Patients with WBC >100,00 0 may have falsely elevated Potassium levels. ??For accurate Potassium quantif ication in these patients send serum separator tube (gold top) for subsequent determinations. ??Contact the Clinical Chemistry Laboratory if there are any qu estions. Chloride 105 98 - 107 mmol/L [facility] CO2 27 22 - 31 mmol/L [facility] Anion Gap 10 5 - 15 mmol/L [facility] Calcium 10.4 8.5 - 10.5 mg/dL [facility] Estimated GFR 82 >=60 mL/min/1.73 m?? [facility] Comment: The eGFR was calculated using the CKD-EP I equation. As with all creatinine based estimates of kidney function, eGFR values calculated with the CKD-EPI equation are not accurate in patients wi th acute kidney failure, extremes of body mass or the acutely ill. http://[employer]/[facility] MIAMInkf eGFR 95 >=60 mL/min/1.73 m?? [facility] Comment: The eGFR was calculated using the CKD-EP I equation. As with all creatinine based estimates of kidney function, eGFR values calculated with the CKD-EPI equation are not accurate in patients wi th acute kidney failure, extremes of body mass or the acutely ill. http://[employer]/[facility] MIAMInkf Specimen Anatomical Collection Method Collection Time Receive d Time (Source) Location / / Volume Laterality Blood specimen 04/07/2019 11:27 9 (specimen) AM EDT 11:34 AM EDT Resulting Agency Comment Spec In Lab Deonte Mauro MD CHEMISTRY ORDERABLES Performing Organization Address City/[facility] Phon e Number [address] [place]ec[place] level (04/07/2019 11:27 AM EDT) P athologist Signature [place] Lvl 0.89 <=1.20 [facility] mmol/L [facility] Comment: Therapeutic level for bipolar depression : 0.60-1.20 mmol/L Action Level: ?? Acute toxicity: ?>4.00 mmol/L ?? Chronic toxicity: ??>1.50 mmol/L Values greater than or equal to the acti on level necessitate clinical intervention. ??Values less than this le raeann may necessitate intervention based on clinical condition of the patient. Ref: ??Goldfrank? s Toxicologic Emergencies 6th ed 1998; p. 967 Specimen Anatomical Collection Method Collection Time Receive d Time (Source) Location / / Volume Laterality Blood specimen 04/07/2019 11:27 9 (specimen) AM EDT 11:34 AM EDT Resulting Agency Comment Spec In Lab Deonte Mauro MD CHEMISTRY ORDERABLES Performing Organization Address [facility] Phon e Number [address] T3 Total (04/07/2019 11:27 AM EDT) athologist Signature T3, Total 82 75 - 170 [facility] ng/dL [facility] Specimen Anatomical Collection Method Collection Time Receive d Time (Source) Location / / Volume Laterality Blood specimen 04/07/2019 11:27 9 (specimen) AM EDT 11:34 AM EDT Resulting Agency Comment Spec In Lab Deonte Mauro MD CHEMISTRY ORDERABLES Performing Organization Address City/[facility]/ZIP Code Phon e Number [address] T4, free (04/07/2019 11:27 AM EDT) athologist Signature Free T4 1.13 0.93 - 1.70 [facility] [place] ng/dL [facility] Specimen Anatomical Collection Method Collection Time Receive d Time (Source) Location / / Volume Laterality Blood specimen 04/07/2019 11:27 9 (specimen) AM EDT 11:34 AM EDT Resulting Agency Comment Spec In Lab Deonte Mauro MD CHEMISTRY ORDERABLES Performing Organization Address City/State/[place] [address] TSH (04/07/2019 11:27 AM EDT) athologist Signature TSH 1.74 0.27 - 4.20 ANISH MUSTAFA mcIU/mL [facility] Specimen Anatomical Collection Method Collection Time Receive d Time (Source) Location / / Volume Laterality Blood specimen 04/07/2019 11:27 9 (specimen) AM EDT 11:34 AM EDT Resulting Agency Comment Spec In Lab Deonte Mauro MD CHEMISTRY ORDERABLES Performing Organization Address City/[facility]/ZIP Code Phon e Number [address] documented in this encounter Visit Diagnoses Diagnosis High risk medication use - Primary Encounter for long-term (current) use of other medications documented in this encounter Care Teams Industrial Retrofit Designer Relationship Specialty Start Date End Date Virginie Gudino APRN PCP - General Family Medicine 06/16/18 [place] [address] documented as of this encounter
--- OUTSIDE RECORDS SUMMARY | 2022-05-26 22:00 | XMS_ITS | Encounter Summary ---
:1965 Author Organization [facility] [place] [address] Care Team Providers Name Role Phone Virginie Gudino APRN Primary Care Provider Reason for Visit Reason Onset Date Comments Medication Refill 09/17/2018 Encounter Details Date Type Department Care Team Description 09/17/2018 Refill Psychiatry and Behavioral Juan R Pearl[place] [address] Social History Tobacco Use Types Packs/Day [...] Psychiatry Ashtyn Joseph APRN [facility] [address] [place], [place] [address] (Wo rk) documented as of this encounter Visit Diagnoses Not on filedocumented in this encounter Care Teams Photogrammetric Surveyor Relationship Specialty Start Date End Date Virginie Gudino APRN PCP - General Family Medicine 06/16/18 [place] [address] documented as of this encounter
--- OUTSIDE RECORDS SUMMARY | 2022-05-26 22:00 | XMS_ITS | Encounter Summary ---
:1965 Author Organization [facility] [place] [address] Care Team Providers Name Role Phone None Primary Care Provider Unavailable Reason for Visit Reason Onset Date Comments Medication Refill 06/18/2017 Encounter Details Date Type Department Care Team Description 06/18/2017 Refill Psychiatry and Behavioral Laura Francisco MD [facility] [place] [address] [place] [address] [phone] (Wo rk) Social History Tobacco Use Types Packs/Day Years Used Date Never Smoker Alcohol Use Standard Drinks/Week Comments No 0 (1 standard drink = 0.6 oz pure alcoho l) Sex Assigned at Date Recorded Female 02/11/2021 8:25 PM EDT documented as of this encounter Miscellaneous Notes Telephone Encounter - Laura Villalobos MD - 06/18/2017 2:17 PM EDT Spoke to patient on phone. Patient reports she had difficulty sleeping on higher dose of 60 mg latuda and had decreased back to 40 mg latuda as discussed at her last appointment with Dr. Wolfe. Prescribed one month of latuda 40 mg for patient. documented in this encounter Plan of Treatment Upcoming Encounters Date Type Specialty Care Team Description 06/30/2022 TH Visit (TeleHealth) Psychiatry Ashtyn Joseph, RO[facility] [employer] [facility] ER [address] [place], [place] [address] (Wo rk) documented as of this encounter Visit Diagnoses Not on filedocumented in this encounter Care Teams Emt Relationship Specialty Start Date End Date None PCP - General 05/11/17 06/15/18 None documented as of this encounter
--- OUTSIDE RECORDS SUMMARY | 2022-05-26 22:00 | XMS_ITS | Encounter Summary ---
:1965 Author Organization [facility] [place] [address] Care Team Providers Name Role Phone Terese Virginie DANNA Primary Care Provider Encounter Details Date Type Department Care Team Description 09/21/2018 Refill [facility] [place] [facility] Dorie Blanco Small intestinal [facility] [place]g [place] [address] [facility] [phone] DR GASTROENTEROLOGY DEPT. [place], [place] [address] Social History Tobacco Use Types Packs/Day Years Used Date Never Smoker Smokeless Tobacco: Never Used Alcohol Use Standard Drinks/Week Comments No 0 (1 standard drink = 0.6 oz pure alcoho l) Sex Assigned at Date Recorded Female 02/11/2021 8:25 PM EDT documented as of this encounter Miscellaneous Notes Telephone Encounter - Sophy Fajardo RN - 09/21/2018 1:53 PM EDT ----- Message from Dorie Blanco APRN sent at 09/19/2018 9:13 PM EDT ----- sibo Rifaximin 550mg bid x 14 days ----- Message ----- From: Maya Solano APRN Sent: 09/14/2018 10:42 AM To: Dorie Blanco APRN documented in this encounter Plan of Treatment Upcoming Encounters Date Type Specialty Care Team Description 06/30/2022 TH Visit (TeleHealth) Psychiatry Ashtyn Joseph APRN [facility] ER [address] [place], [place] [address] (Wo rk) documented as of this encounter Visit Diagnoses Diagnosis Small intestinal bacterial overgrowth documented in this encounter Care Teams Academic Affairs Specialist Relationship Specialty Start Date End Date Virginie Gudino APRN PCP - General Family Medicine 06/16/18 [address] [place] [address] documented as of this encounter
--- OUTSIDE RECORDS SUMMARY | 2022-05-26 22:00 | XMS_ITS | Encounter Summary ---
:1965 Author Organization [facility] [place] [address] Care Team Providers Name Role Phone None Primary Care Provider Unavailable Encounter Details Date Type Department Care Team Description 08/24/2017 Laboratory Appointment Lab 3L [facility] depressed , severe, Drive [place] features [phone] Social History Tobacco Use Types Packs/Day Years Used Date Never Smoker Alcohol Use Standard Drinks/Week Comments No 0 (1 standard drink = 0.6 oz pure alcoho l) Sex Assigned at Date Recorded Female 02/11/2021 8:25 PM EDT documented as of this encounter Plan of Treatment Upcoming Encounters Date Type Specialty Care Team Description 06/30/2022 TH Visit (TeleHealth) Psychiatry Ashtyn Joseph APRN [facility] DR PSYCHIATRY [place], [place] [address] (Wo rk) documented as of this encounter Procedures Procedure Name Priority Date/Time Associated Diagnosis Comme nts LITHIUM LEVEL Routine 08/24/2017 9:53 AM Bipolar disorder, Res ults for this EDT current episode procedure ar e in depressed, severe, the resul ts without psychotic section. features BASIC METABOLIC Routine 08/24/2017 9:53 AM Bipolar disorder, R esults for this PANEL (NON-FASTING) EDT current episode proce dure are in depressed, severe, the resul ts without psychotic section. features documented in this encounter Results Basic Metabolic Panel (non-fasting) (08/24/2017 9:53 AM EDT) P athologist Signature Glucose Lvl 91 65 - 199 [facility] mg/dL [facility] Comment: Diabetes: >=200 mg/dL plus symp toms BUN 15 8 - 18 mg/dL [facility] Creatinine 0.77 0.70 - 1.20 mg/dL [facility] Comment: Please note that the pediatric reference intervals supplied above were not validated at [facility]. Results from pediatri c patients should be interpreted in conjunction to the patient's age, height and muscle mass. Sodium 144 135 - 145 mmol/L [facility] Potassium 3.6 3.5 - 5.0 mmol/L [facility] Comment: Please note: ??Patients with WBC >100,00 0 may have falsely elevated Potassium levels. ??For accurate Potassium quantif ication in these patients send serum separator tube (gold top) for subsequent determinations. ??Contact the Clinical Chemistry Laboratory if there are any qu estions. Chloride 107 98 - 107 mmol/L [facility] CO2 25 22 - 31 mmol/L [facility] Anion Gap 12 5 - 15 mmol/L [facility] Calcium 9.7 8.5 - 10.5 mg/dL [facility] Estimated GFR >60 >=60 [facility] Comment: This estimated GFR (eGFR) [...] the following links into your internet browser. [email or web address] Specimen Anatomical Collection Method Collection Time Receive d Time (Source) Location / / Volume Laterality Blood specimen 08/24/2017 9:53 AM 017 9:57 (specimen) EDT AM EDT Resulting Agency Comment Spec In Lab Aileen Stephenson MD CHEMISTRY ORDERABLES Performing Organization Address [facility]/ZIP Code Phon e Number [place] [phone] [place] level (08/24/2017 9:53 AM EDT) P athologist Signature [place] Lvl 0.75 mmol/L [facility] Comment: Therapeutic level for bipolar depression : 0.60-1.20 mmol/L Action Level: ?? Acute toxicity: ?>4.00 mmol/L ?? Chronic toxicity: ??>1.50 mmol/L Values greater than or equal to the acti on level necessitate clinical intervention. ??Values less than this le raaenn may necessitate intervention based on clinical condition of the patient. Ref: ??Goldfrank? s Toxicologic Emergencies 6th ed 1997; p. 967 Specimen Anatomical Collection Method Collection Time Receive d Time (Source) Location / / Volume Laterality Blood specimen 08/24/2017 9:53 AM 017 9:57 (specimen) EDT AM EDT Resulting Agency Comment Spec In Lab Aileen Stephenson MD CHEMISTRY ORDERABLES Performing Organization Address [facility] [place] [address] documented in this encounter Visit Diagnoses Diagnosis Bipolar disorder, current episode depres sed, severe, without psychotic features Bipolar I disorder, most recent episode (or current) depressed, severe, without mention of psychotic behavior documented in this encounter Care Teams Thai Masseur Relationship Specialty Start Date End Date None PCP - General 05/11/17 06/15/18 None documented as of this encounter
--- OUTSIDE RECORDS SUMMARY | 2022-05-26 22:00 | XMS_ITS | Encounter Summary ---
:1965 Author Organization [facility] [place] [address] Care Team Providers Name Role Phone Virginie Gudino APRN Primary Care Provider Reason for Visit Reason Comments Nutrition Counseling Encounter Details Date Type Department Care Team Description 07/26/2018 Clinical Support Gastroenterology at [facility] Reece Alvarado; [facility] Y[address] [place] [address] Social History Tobacco Use Types Packs/Day Years Used Date Never Smoker Smokeless Tobacco: Never Used Alcohol Use Standard Drinks/Week Comments No 0 (1 standard drink = 0.6 oz pure alcoho l) Sex Assigned at Date Recorded Female 02/11/2021 8:25 PM EDT documented as of this encounter Last Filed Vital Signs Vital Sign Reading Time Taken Comments Blood Pressure 117/69 07/26/2018 11:57 AM EDT Pulse 56 07/26/2018 11:57 AM EDT Temperature - - Respiratory Rate - - Oxygen Saturation - - Inhaled Oxygen Concentration - - Weight 70.8 kg (156 lb) 07/26/2018 11:57 AM EDT Height 167.6 cm (5' 6) 07/26/2018 11:57 AM EDT Body Mass Index 25.18 07/26/2018 11:57 AM EDT documented in this encounter Progress Notes Sandra Alvarado RD - 07/26/2018 12:00 PM EDT Nutrition Seeing patient for diet and IBS (low fodmap diet reintroduction) Wt Readings from Last 5 Encounters: 07/26/18 70.8 kg (156 lb) 07/26/18 70.8 kg (156 lb) 05/10/18 76.2 kg (168 lb) 10/19/17 83.1 kg (183 lb 3.2 oz) 08/24/17 85.3 kg (188 lb) Ht Readings from Last 5 Encounters: 07/26/18 167.6 cm (5' 6) 07/26/18 167.6 cm (5' 6) 05/10/18 167.6 cm (5' 5.98) 10/19/17 167.6 cm (5' 6) 08/24/17 167.6 cm (5' 6) Body mass index is 25.18 kg/(m^2). Outpatient Prescriptions Marked as Taking for the 07/26/18 encounter (Clinical Support) with Sandra Alvarado LD Medication Sig Dispense Refill ??? LORazepam (ATIVAN) 0.5 mg Tablet Take 0.5 mg by mouth every 6 hours as needed for Anxiety. ??? bismuth subsalicylate (PEPTO-BISMOL) 262 mg/15 mL Suspension Take 15 mLs by mouth every 6 hours as needed for Indigestion. ??? zolpidem (AMBIEN) 5 mg Tablet Take 0.5-1 tablets by mouth nightly as needed for Sleep. 30 tablet0 ??? lithium (LITHOBID) 300 mg Tablet Sustained Release TAKE TWO TABLETS BY MOUTH EVERY MORNING AND THREE TABLETS EVERY EVENING 150 tablet 4 ??? cetirizine (ZYRTEC) 10 mg tablet Take [...] tablet Take 1 tablet by mouth daily. Diet Recall: B-eggs (getting tired of eggs)--or granola bar ([place] crunchy that is gluten free and 1/3-1/4 of banana--only underripe) L-leftovers from dinner or a lot of chicken or chicken salad, tuna salad and clementines D-Meat and vegetable with spinach, carrots, once in a while sweet potatoes or butternut squash--she does most of the cooking Once per week will have beef, eats lots of fish including salmon (lean meats) eats very healthy diet (training for marathon)--will make his own 1-2 times per week will have gluten free bread Fluids: Drinks Water GI symptoms: Most days she is OK, once in a while she has diarrhea (1-2 times per week)--depends on the week. She been OK this week. Evaluation: She has been following the low fodmap diet since Dec (6 months) and it seems to have helped. She does dairy free and gluten free. She saw Dorie today and she wants her to do reintroduction given her very limited diet. 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 Recommendations/Plan: 1. Reintroduce dairy and gluten (conservative approach) 2. Increase calcium in diet with both dairy free sources (fortified) and lactose free sources (as part of reintroduction) 3. Follow up with me on same day as Dorie documented in this encounter Plan of Treatment Upcoming Encounters Date Type Specialty Care Team Description 06/30/2022 TH Visit (TeleHealth) Psychiatry Ashtyn Joseph APRN [facility] ER [address] [place], [place] [address] (Wo rk) documented as of this encounter Visit Diagnoses Diagnosis Bloating Flatulence, eructation, and gas pain Diarrhea, unspecified type documented in this encounter Care Teams Front End Developer Javascript Html Css Relationship Specialty Start Date End Date Virginie Gudino APRN PCP - General Family Medicine 7/18/18 [place] [address] documented as of this encounter
--- OUTSIDE RECORDS SUMMARY | 2022-05-26 22:00 | XMS_ITS | Encounter Summary ---
:1965 Author Organization [facility] Address [facility] [place] [address] Care Team Providers Name Role Phone MariettaVirginie ventura DANNA Primary Care Provider Encounter Details Date Type Department Care Team Description 09/05/2019 Office Visit Psychiatry and Zhanna Mistry, Bipolar affective disorder, remission status unspecified; Behavioral Health at [facility] [place] [address] [place], [place] [phone] (Work) [phone] Social History Tobacco Use Types Packs/Day Years Used Date Never Smoker Smokeless Tobacco: Never Used Alcohol Use Standard Drinks/Week Comments No 0 (1 standard drink = 0.6 oz pure alcoho l) Sex Assigned at Date Recorded Female 02/11/2021 8:25 PM EDT documented as of this encounter Progress Notes Zhanna Mistry APRN - 09/05/2019 11:00 AM EDT ESTABLISHED ADULT PATIENT OFFICE VISIT NOTE Time Spent: 30 min Attendee(s): patient Identifying information: Shireen Silva is a 54 y.o. female with history of Bipolar I disorder with R/O MALVIN. She is a transfer from Dr. Villalobos. She is here for ongoing follow up. Chief Complaint: should we increase Prozac History of Present Illness: () (Quality, Severity, Duration, Timing, Context, Modifying factors, Associated S&S) Shireen Silva is a 54 y.o. female Psychiatric Symptoms: ?? Hearing muffled sounds that are not really voices, she can't really make out what they are saying. This happens a lot and has been ongoing issues. She doesn't think the Prozac made this worse. She continues to hear music also ?? Her mood feels fine ?? Sleep: 7 hours ?? Appetite: okay ?? Energy: depends on the day ?? Focus/Concentration: when stressed focus is worse ?? Anxiety: took ativan once. Overall her anxiety is a 4/10 since starting Prozac which is a big improvement ?? No side effects of any of her medications Health Changes: ?? Thyroid nodule is bothering her: feels like pressure, throat can get raspy She will have an ultrasound soon. PCP is aware. She has been followed closely. ?? Hydrating well. Work/Life/Family Updates: ?? Family has one car which is stressful. 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 Having 30 year anniversary and looking forward to this this weekend ?? Can worry about kids and tries to help but also encourage independence Substance Use: ?? 2-3 drinks of wine and putting in coffee mug, wants to cut back. Doesn't like how she feels with it. Safety: Denies SI/HI intent or plan, denies cutting . Questionnaires: PHQ9 Questionnaires Data (Clinic and Pt [...] Medications Medication Sig Dispense Refill ??? FLUoxetine (PROZAC) 20 mg Capsule Take 1 capsule by mouth daily. 30 capsule 5 ??? lithium (LITHOBID) 300 mg Tablet Sustained Release TAKE 2 TABLETS BY MOUTH EVERY MORNING AND 3 TABLETS IN THE EVENING ( complete level at [facility]) 150 tablet 5 ??? LORazepam (ATIVAN) 0.5 mg Tablet Take 1 tablet by mouth every 6 hours as needed for Anxiety. 30 tablet 0 ??? zolpidem (AMBIEN) 5 mg [...] Side Effects: Denies Review of Systems: CONST no recent weight change GI no nausea, no vomiting, no diarrhea, no constipation and no abdominal pain NEURO no headache PSYCH See above / control Allergies Reviewed [...] of trial): ??Celexa ?Venlafaxine ?Fluoxetine ?Bupropion ?Risperidone ?[place] (current at 600 mg and 900 mg [...] (24hr Range): No data found. Musculoskeletal System: normal gait and balance and ambulates independently Mental Status Exam: ?? Appearance: age appropriate, well dressed, well groomed and with short curly hair ?? Behavior: cooperative with the interview and good eye contact ?? Speech: normal pitch, normal volume, normal rate and normal rhythm ?? Language: fluent in icelandic ?? Mood: good, less anxious ?? Affect: mood-congruent ?? Thought Process: linear [...] ?? Judgment: good ?? Labs: Psychiatry Labs: Lab Results Component Value Date LITHIUM 0.89 04/07/2019 NA 142 04/07/2019 BUN 21 (H) 04/07/2019 CREATININE 0.83 04/07/2019 TSH 1.74 04/07/2019 WBC 7.4 07/26/2018 Lab Results Component Value Date TSH 1.74 04/07/2019 Lab Results Component Value Date NA 142 04/07/2019 K 3.9 04/07/2019 CL 105 04/07/2019 CO2 27 04/07/2019 BUN 21 (H) 04/07/2019 CREATININE 0.83 04/07/2019 GLUCOSE 114 04/07/2019 CALCIUM 10.4 04/07/2019 ESTGFR 82 04/07/2019 Formulation and Assessment: Overall Formulation: Shireen Silva is a 54 y.o. Female with a history of Bipolar I and anxiety. Shehas history of SIB and SI when more depressed. Ambien is protective for sleep. Will likely benefit from re engaging in therapy. She would like to reduce etoh use which I support, suggest slowly reducing over time and encouraged AUD treatment ?? Diagnosis: Bipolar I and anxiety NOS CURRENT ASSESSMENT: Mood is stable. Reports auditory hallucinations that do not bother her or correlate to symptoms of diana/depression. Consider if schizoaffective is more accurate diagnosis. We will monitor. I do not see reason to start SGA, but we could consider if these symptoms worsen. She deniesany symptoms of diana or hypomania, including increased goal-directed activity, grandiosity, decreased need for sleep, talkativeness, or increased energy. I did express concern about alcohol use, particularly combined with ambien/ativan. She tells me she drinks around 5:00PM to avoid combining with ambien. 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 She is working to reduce her alcohol use. She is motivated and sees this as an issue. She will consider Naltrexone, agrees to complete hepatic function if starting. Prozac has been very helpful for anxiety. Denies SIB, SI and HI intent or plan. She feels safe. Rare ativan use. She will follow up with her PCP about Thyroid ultrasound. PLAN: ?? Safety:?? reviewed office and emergency contact info ?? Medications: ?? [place]: 600mg SR in AM and 900mg in PM ?? Prozac: 20mg PO daily ?? Ambien: 5mg daily ?? Ativan: 0.5mg PO daily PRN ( rare use does not need refill) ?? LABS: Complete Hepatic function( if considering Naltrexone), [place] level and BMP at [facility] ( nurse Angélica Pearl sent these to [facility]) ?? Additional treatment recommendations: consider psychotherapy, she was given information about howto find therapist near her and will check out psychology today. A LADAC would be helpful ?? Follow-up:??03/12/20 ( hard to drive in winter months) does agree to come sooner if mood should worsen Safety Assessment: Denies SI/HI intent or plan. [...] TH Visit (TeleHealth) Psychiatry Ashtyn Joseph APRN [facility] [address] [place], [place] [address] (Wo rk) documented as of this encounter Visit Diagnoses Diagnosis Bipolar affective disorder, remission st atus unspecified Anxiety Anxiety state, unspecified documented in this encounter Care Teams Beer Runner Relationship Specialty Start Date End Date Virginie Gudino APRN PCP - General Family Medicine 06/16/18 [address] [place] [address] documented as of this encounter
--- OUTSIDE RECORDS SUMMARY | 2022-05-26 22:00 | XMS_ITS | Encounter Summary ---
:1965 Author Organization [facility] [place] [address] Care Team Providers Name Role Phone Virginie Gudino APRN Primary Care Provider Reason for Visit Reason Comments Bipolar Disorder Encounter Details Date Type Department Care Team Description 04/13/2019 Office Visit Psychiatry and Laura Villalobos affective Behavioral Health andrew Mar MD disorder, remission [facility] status unspecified [facility] [address] PSYCHIATRY [place] [phone] Social History Tobacco Use Types Packs/Day Years Used Date Never Smoker Smokeless Tobacco: Never Used Alcohol Use Standard Drinks/Week Comments No 0 (1 standard drink = 0.6 oz pure alcoho l) Sex Assigned at Date Recorded Female 02/11/2021 8:25 PM EDT documented as of this encounter Last Filed Vital Signs Vital Sign Reading Time Taken Comments Blood Pressure 123/60 04/13/2019 2:01 PM EDT Pulse 60 04/13/2019 2:01 PM EDT Temperature - - Respiratory Rate 18 04/13/2019 2:01 PM EDT Oxygen Saturation - - Inhaled Oxygen Concentration - - Weight 68 kg (150 lb) 04/13/2019 2:01 PM EDT Height 167.6 cm (5' 5.98) 04/13/2019 2:01 PM EDT Body Mass Index 24.22 04/13/2019 2:01 PM EDT documented in this encounter Progress Notes Laura Villalobos MD - 04/13/2019 2:00 PM EDT ESTABLISHED ADULT PATIENT OFFICE VISIT NOTE Time Spent: 30 min Attendee(s): Ms. Silva This patient was seen with Dr. Petit. See her note for confirmatory and/or revisionary documentation. HISTORY Chief Complaint: Shireen Silva is a 53 y.o. Female presents today for medication management/follow up HPI: - She reports her mood is worse than when she was last here in September - reports depression is minimally worse and that it's anxiety mostly - she reports it's situational but also her response toit is worse. Reports she is worrying a lot. Uses the coping skill of trying to ground herself. - Denies any feelings of manic symptoms such as less sleep, spending money, racing thoughts, fast speech. Sleeping about 7 hours per night - Therapist - still trying to find one - is seeing a acute therapist at her PCP who is helping her find a referral - She reports thoughts of hurting herself are [...] call 911 or go to the ED. - She does report she has cut a few times this month - she showed me two superficial grove on her left arm. - We reviewed recent labs Alcohol: drinks alcohol most days, one or two drinks - feels bad if she drinks more. She reports it's partially for anxiety Cigarettes: no smoking Drugs: no drugs, no marijuana. Medications 04/13/19 1401 Medication Sig Taking? lithium (LITHOBID) 300 mg Tablet Sustained Release TAKE 2 TABLETS BY MOUTH EVERY MORNING AND 3 TABLETS IN THE EVENING Yes zolpidem (AMBIEN) 5 mg Tablet Take 0.5-1 tablets by mouth nightly as needed for Sleep. Taking it most nights Yes LORazepam (ATIVAN) 0.5 mg Tablet usually takes it three times week, as needed for Anxiety. Yes bismuth subsalicylate (PEPTO-BISMOL) 262 mg/15 mL Suspension Take 15 mLs by mouth every 6 hours as needed for Indigestion. Yes cetirizine (ZYRTEC) 10 mg tablet Take 10 mg by mouth daily. Reported on 03/23/2017 Indications: Seasonal Allergic Rhinitis Yes pseudoephedrine (SUDAFED) 30 mg tablet Take 30 mg by mouth every 4 hours as needed. Reported on 03/23/2017 Yes calcium carbonate (TUMS) 200 mg calcium (500 mg) chewable tablet Take 1 tablet by mouth daily as needed. Yes multivitamin (THERAGRAN) tablet Take 1 tablet by mouth daily. Yes GAD7 Questionnaires Data: last 4 values of anxiety scores MALVIN-7 Questionnaire Score Only 10/27/2018 01/04/2019 03/08/2019 04/12/2019 MALVIN-7 Score (Patient) 7 (Mild Anxiety) 7 (Mild Anxiety) 8 (Mild Anxiety) 14 (Moderate Anxiety) PHQ9 Questionnaires Data (Clinic and Pt Entered): last 4 values of depression scores PHQ-9 QUESTIONNAIRE SCORE ONLY (Patient) 10/27/2018 01/04/2019 03/08/2019 04/12/2019 PHQ - 9 Score (Patient) 9 (Mild Depression) 7 (Mild Depression) 9 (Mild Depression) 10 (Moderate Depression) Some recent data might be hidden [...] medication trials: ?Citalopram ?Venlafaxine ?Fluoxetine ?Bupropion ?Risperidone ?Acton (current at 600 mg and 900 mg daily) ?Oxcarbazepine ?Clonazepam ?Lorazepam ?Zolpidem (current at 5 mg nightly PRN insomnia) ?Eszopiclone Lurasidone Family Psychiatric and Medical History: no interval change 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 Range 04/07/2019 11:27 Sodium Latest Ref Range: 135 - 145 mmol/L 142 Potassium Latest Ref Range: 3.5 - 5.0 mmol/L 3.9 Chloride Latest Ref Range: 98 - 107 mmol/L 105 CO2 Latest Ref Range: 22 - 31 mmol/L 27 Anion Gap Latest Ref Range: 5 - 15 mmol/L 10 BUN Latest Ref Range: 8 - 18 mg/dL 21 (H) Creatinine Latest Ref Range: 0.70 - 1.20 mg/dL 0.83 eGFR Latest Ref Range: >=60 mL/min/1.73 m?? 82 eGFR Latest Ref Range: >=60 mL/min/1.73 m?? 95 Glucose Lvl Latest Ref Range: 65 - 199 mg/dL 114 Calcium Latest Ref Range: 8.5 - 10.5 mg/dL 10.4 Acton Lvl Latest Ref Range: <=1.20 mmol/L 0.89 T3, Total Latest Ref Range: 75 - 170 ng/dL 82 Free T4 Latest Ref Range: 0.93 - 1.70 ng/dL 1.13 TSH Latest Ref Range: 0.27 - 4.20 mcIU/mL 1.74 EXAM [05/08/14 bullets (incl VS)] Constitutional System ? Vital Signs: Blood pressure 123/60, pulse 60, resp. rate 18, height 167.6 cm (5' 5.98), weight 68kg (150 lb). Musculoskeletal System ? Muscle Strength/Tone (note [...] and Insight: fair ? Mood & Affect: not bad/affect is calm, tearful when talking about certain topics such as herrecent cutting ? Orientation: intact ? Attention/Concentration: alert/attentive and without need for redirection ? Memory: grossly intact to recent/remote events ? Language: fluent ? Fund of Knowledge: average MEDICAL DECISION MAKING ASSESSMENT: Shireen Silva is a 53 y.o. Female with hx of bipolar disorder presenting for medicationmanagement/follow up. She has bipolar disorder with a history of manic episodes, however mood more recently has been predominately depressed. She reports overall her mood is lower than when I saw her in September - she reports the depression is a bit worse but it's mainly anxiety and worrying that is bothering her. We discussed the risks (could precipitate a manic episode) vs benefits (help with anxiety/mood) of restarting an antidepressant. She has tolerating antidepressants in the past including prozac which she seems to have tolerated. She has also been on wellbutrin in the past which would be good to explore with her in the future. She continues to report some intermittent thoughts of harming herself however which are perhaps increased however she denies intent or plan to harm herself. She reports she would reach out for help if needed. She is agreeable to restarting prozac and monitoring for signs of diana/hypomania. She is currently seeing a therapist for acute care at her PCP's office - Iencouraged her to share that she is cutting with this therapist. She reports the therapist may be able to help with a referral for ongoing care. PLAN: - pt to start prozac at 10 mg and cautiously titrate to 20 mg daily if tolerating without signs of diana/hypomania. - Pt to continue other current medications. - f/u 2 months or sooner PRN. Patient Instruction/Education provided: Patient provided verbal instructions regarding treatment plan. Patient understands the plan? Yes Blossom Petit MD - 04/13/2019 2:00 PM EDT Psychiatry Attending Note I saw and evaluated the patient with the resident. I reviewed the patient???s history during the visit and I agree with the details as written. My exam confirms the resident's findings. The assessment and plan were formulated in discussion with me and I agree with them as documented. Major issues addressed/discussed: Patient reporting worsened anxiety symptoms at this time. Cautioned regarding worsened mood instability with initiation of antidepressant, but has done well in the past on this combination, and lithium level is therapeutic. Highlighted communication options during transition to new provider. Blossom Petit MD documented in this encounter Plan of Treatment Upcoming Encounters Date Type Specialty Care Team Description 06/30/2022 TH Visit (TeleHealth) Psychiatry Ashtyn Joseph, COMMUNITY COORDINATOR [facility] PS[facility]IATRY [place], [place] [address] (Wo rk) documented as of this encounter Visit Diagnoses Diagnosis Bipolar affective disorder, remission st atus unspecified documented in this encounter Care Teams Paper Tube Machine Operator Relationship Specialty Start Date End Date Virginie Gudino APRN PCP - General Family Medicine 06/16/18 [address] [place] [address] documented as of this encounter
--- OUTSIDE RECORDS SUMMARY | 2022-05-26 22:00 | XMS_ITS | Encounter Summary ---
:1965 Author Organization [place] [address] Care Team Providers Name Role Phone Virginie Gudino APRN Primary Care Provider Reason for Visit Reason Onset Date Comments Medication Refill 03/22/2021 Encounter Details Date Type Department Care Team Description 03/22/2021 Refill Psychiatry and Behavioral Health at [facility] [place] [address] Social History Tobacco Use Types Packs/Day [...] TH Visit (TeleHealth) Psychiatry Ashtyn Joseph APRN [facility] [address] [place], [place] [address] (Wo rk) documented as of this encounter Visit Diagnoses Not on filedocumented in this encounter Care Teams Numerical Control Machine Operator Relationship Specialty Start Date End Date Virginie Gudino APRN PCP - General Family Medicine 06/16/18 [place] [address] documented as of this encounter
--- OUTSIDE RECORDS SUMMARY | 2022-05-26 22:00 | XMS_ITS | Encounter Summary ---
:1965 Author Organization [facility] [place] [address] Care Team Providers Name Role Phone Virginie Gudino APRN Primary Care Provider Reason for Visit Reason Onset Date Comments Medication Refill 06/25/2020 Encounter Details Date Type Department Care Team Description 06/25/2020 Refill Psychiatry and Behavioral Zhanna Mistry APRN Health at [facility] [place] [place] [address] [place] [address] [phone] Social History Tobacco Use Types Packs/Day Years [...] TH Visit (TeleHealth) Psychiatry Ashtyn Joseph APRN [facility] [address] [place], [place] [address] (Wo rk) documented as of this encounter Visit Diagnoses Not on filedocumented in this encounter Care Teams Utilization Review Specialist Relationship Specialty Start Date End Date Virginie Gudino APRN PCP - General Family Medicine 06/16/18 [place], [place] [address] documented as of this encounter
--- OUTSIDE RECORDS SUMMARY | 2022-05-26 22:00 | XMS_ITS | Encounter Summary ---
:1965 Author Organization [facility] [place] [address] Care Team Providers Name Role Phone Virginie Gudino APRN Primary Care Provider Reason for Visit Reason Onset Date Comments Medication Refill 06/03/2018 Encounter Details Date Type Department Care Team Description 06/03/2018 Refill Psychiatry and Behavioral Juan R Pearl, [place] [address] Social History Tobacco Use Types Packs/Day [...] (TeleHealth) Psychiatry Ashtyn Joseph APRN [facility] [address] [place], [place] [address] (Wo rk) documented as of this encounter Visit Diagnoses Not on filedocumented in this encounter Care Teams Metal Coater Operator Relationship Specialty Start Date End Date Virginie Gudino APRN PCP - General Family Medicine 06/16/18 [place] [address] documented as of this encounter
--- OUTSIDE RECORDS SUMMARY | 2022-05-26 22:00 | XMS_ITS | Encounter Summary ---
:1965 Author Organization [facility] [place] [address] Care Team Providers Name Role Phone Virginie Gudino APRN Primary Care Provider Reason for Visit Reason Onset Date Comments Medication Refill 08/28/2017 Encounter Details Date Type Department Care Team Description 08/28/2017 Refill Psychiatry and Behavioral Elin cates, Laura Mar MD [facility] at [facility] [place] [address] [place] [address] [phone] (Wo salvador) Social History Tobacco Use Types Packs/Day Years Used Date Never Smoker Alcohol Use Standard Drinks/Week Comments No 0 (1 standard drink = 0.6 oz pure alcoho l) Sex Assigned at Date Recorded Female 02/11/2021 8:25 PM EDT documented as of this encounter Plan of Treatment Upcoming Encounters Date Type Specialty Care Team Description 06/30/2022 TH Visit (TeleHealth) Psychiatry Ashtyn Joseph APRN [facility] [address] [place], [place] [address] (Wo salvador) documented as of this encounter Visit Diagnoses Not on filedocumented in this encounter Care Teams Predatory Animal Trapper Relationship Specialty Start Date End Date Virginie Gudino APRN PCP - General Family Medicine 06/16/18 [place], [place] [address] documented as of this encounter
--- OUTSIDE RECORDS SUMMARY | 2022-05-26 22:00 | XMS_ITS | Encounter Summary ---
:1965 Author Organization [facility] [address] Care Team Providers Name Role Phone Virginie Gudino APRN Primary Care Provider Reason for Visit Reason Onset Date Comments Medication Refill 02/22/2020 Encounter Details Date Type Department Care Team Description 02/22/2020 Refill Psychiatry and Behavioral Zhanna Mistry APRN [facility] at [facility] [place] [address] [place] [address] [phone] Social History Tobacco Use Types Packs/Day Years [...] TH Visit (TeleHealth) Psychiatry Ashtyn Joseph APRN [facility] [address] [place], [place] [address] (Wo rk) documented as of this encounter Visit Diagnoses Not on filedocumented in this encounter Care Teams Sharepoint Net Developer Relationship Specialty Start Date End Date Virginie Gudino APRN PCP - General Family Medicine 06/16/18 [place], [place] [address] documented as of this encounter
--- OUTSIDE RECORDS SUMMARY | 2022-05-26 22:00 | XMS_ITS | Encounter Summary ---
:1965 Author Organization [place] [address] Care Team Providers Name Role Phone TereseVirginie DANNA Primary Care Provider Encounter Details Date Type Department Care Team Description 11/12/2020 TH Visit Psychiatry and Zhanna Mistry, Bipolar affective (TeleHealth) Behavioral Health at [facility], [facility] status unspecified [facility] (Primary Dx) [place] [address] [place], [place] [phone] [address] (Work) [phone] Social History Tobacco Use Types Packs/Day Years Used Date Never Smoker Smokeless Tobacco: Never Used Alcohol Use Standard Drinks/Week Comments No 0 (1 standard drink = 0.6 oz pure alcoho l) Sex Assigned at Date Recorded Female 02/11/2021 8:25 PM EDT documented as of this encounter Progress Notes Zhanna Mistry APRN - 11/12/2020 11:30 AM EST ESTABLISHED ADULT PATIENT OFFICE VISIT NOTE Shireen Silva gave permission for and was seen for today's appointment with a Telephone Office Visit. During this visit they were located in [place]. Shireen Silva is aware that for any urgent matter theycan call [phone]. (prefers telephone to telehealth) Time Spent: 30 [...] a 55 y.o. female Psychiatric Symptoms: ?? Feeling better, not as stressed ?? Medications are useful. No issues. Health Changes: ?? Started Requip for 1 week for periodic limb movement not yet helpful. ( had a sleep study) ?? Sleeping in more, 7 hours ?? Walking once a week with friend Work/Life/Family Updates: ?? mother had HI, doing better now Substance Use: ?? 1-2 glasses reduced Safety: Denies SIB,SI/HI Questionnaires: PHQ9 Questionnaires Data (Clinic and Pt [...] IN THE EVENING ( complete level at [facility]) 150 tablet 5 ??? FLUoxetine (PROzac) 20 [...] for this visit. Pertinent Medication Side Effects: denies Review of Systems: CONST GI Denies NEURO Denies tremor PSYCH See above / control Allergies Reviewed [...] of trial): ??Celexa ?Venlafaxine ?Fluoxetine ?Bupropion ?Risperidone ?Joyce (current at 600 mg and 900 mg [...] and normal rhythm ?? Language: fluent in east timorese ?? Mood: better ?? Affect: mood-congruent ?? Thought Process: [...] Judgment: good ?? Labs: Psychiatry Labs: 11/05/20 Creatinine 0.94 mg/dL 0.55-1.02 mg/dL Calcium Level 9.5 mg/dL 8.5-10.1 mg/dL Thyroid Stimulating Hormone (TSH) 1.60 uIU/mL. Formulation and Assessment: Overall Formulation: Shireen Silva [...] alcohol use disorder CURRENT ASSESSMENT: Mood is stable. Joyce continues to beneficial. Sleep study revealed periodic limb movement, started on Requip. Unclear if helpful yet. We will monitor. Reduced alcohol use. Continues to find benefit with regular exercise. Recent labs WNL. Need new Joyce level. I have ordered patient would like sent to her local hospital ( message sent to GARTH Pearl). This fha underwriter discussed with patient that I will be transitioning to a new role in the psychiatry department and patient will be transferred to a new psychiatric provider in 2020. We discussed transfer options and patient will be transferred to: new [facility] PLAN: ?? Safety:?? reviewed office and emergency contact info ?? Medications: ?? Joyce: 600mg SR in AM and 900mg in PM ?? Prozac: 20mg PO daily ?? Ambien: 5mg daily ?? Ativan: 0.5mg PO daily PRN ( rare use does not need refill) ?? LABS: Joyce level ordered ?? Additional treatment recommendations: ?? Regular exercise and protect sleep ?? Follow-up:??01/03/2021 Safety Assessment: Denies SI/HI intent or plan. . None currently. No hx of SA. No psychiatric hospitalizations. Patient Instruction/Education provided: Patient provided verbal instructions regarding medication side effects, safety plan in case of feeling unsafe. Patient understands the plan? Yes Signed By: Zhanna Mistry APRN documented in this encounter Plan of Treatment Upcoming Encounters Date Type Specialty Care Team Description 06/30/2022 TH Visit (TeleHealth) Ashtyn George APRN [facility] [address] [place], [place] [address] (Wo rk) documented as of this encounter Visit Diagnoses Diagnosis Bipolar affective disorder, remission st atus unspecified - Primary documented in this encounter Care Teams Microsystems Engineer Relationship Specialty Start Date End Date Virginie Gudino APRN PCP - General Family Medicine 06/16/18 [place] [address] documented as of this encounter
--- OUTSIDE RECORDS SUMMARY | 2022-05-26 22:00 | XMS_ITS | Encounter Summary ---
:1965 Author Organization [facility] [place] [address] Care Team Providers Name Role Phone Virginie Gudino APRN Primary Care Provider Reason for Visit Reason Onset Date Comments Medication Refill 06/08/2018 Encounter Details Date Type Department Care Team Description 06/08/2018 Refill Psychiatry and Behavioral Juan R Pearl, [place] [address] Social History Tobacco Use Types Packs/Day [...] TH Visit (TeleHealth) Psychiatry Ashtyn Joseph APRN [facility] [address] [place], [place] [address] (Wo rk) documented as of this encounter Visit Diagnoses Not on filedocumented in this encounter Care Teams Sewing Machine Mechanic Relationship Specialty Start Date End Date Virginie Gudino APRN PCP - General Family Medicine 06/16/18 [place] [address] documented as of this encounter
--- OUTSIDE RECORDS SUMMARY | 2022-05-26 22:01 | XMS_ITS | Encounter Summary ---
:1965 Author Organization [facility] [place] [address] Care Team Providers Name Role Phone Marlin Miramontes APRN Primary Care Provider Reason for Visit Reason Onset Date Comments Medication Refill 10/19/2015 Encounter Details Date Type Department Care Team Description 10/19/2015 Refill Psychiatry and Behavioral IlerAustin MD [facility] at [facility] [place] [address] [place] [address] [phone] (Wo rk) Social History Tobacco Use Types [...] Joseph APRN [facility] ER [address] [place], [place] [address] (Wo rk) documented as of this encounter Visit Diagnoses Not on filedocumented in this encounter Care Teams Department Clinician Relationship Specialty Start Date End Date Marlin Miramontes APRN PCP - General 06/14/13 01/25/17 documented as of this encounter
--- OUTSIDE RECORDS SUMMARY | 2022-05-26 22:01 | XMS_ITS | Encounter Summary ---
:1965 Author Organization [facility] [place] [address] Care Team Providers Name Role Phone None Primary Care Provider Unavailable Reason for Visit Reason Onset Date Comments Medication Refill 05/27/2017 Encounter Details Date Type Department Care Team Description 05/27/2017 Refill Psychiatry and Behavioral Laura Silver MD [facility] at [facility] [place] [address] [place] [address] [phone] (Wo rk) Social History Tobacco Use Types Packs/Day Years Used Date Never Smoker Alcohol Use Standard Drinks/Week Comments No 0 (1 standard drink = 0.6 oz pure alcoho l) Sex Assigned at Date Recorded Female 02/11/2021 8:25 PM EDT documented as of this encounter Plan of Treatment Upcoming Encounters Date Type Specialty Care Team Description 06/30/2022 TH Visit (TeleHealth) Psychiatry Ashtyn Joseph APRN [facility] ER [address] [place], [place] [address] (Wo rk) documented as of this encounter Visit Diagnoses Not on filedocumented in this encounter Care Teams Metal Storage Worker Relationship Specialty Start Date End Date None PCP - General 05/11/17 06/15/18 None documented as of this encounter
--- OUTSIDE RECORDS SUMMARY | 2022-05-26 22:01 | XMS_ITS | Encounter Summary ---
:1965 Author Organization [facility] [place] [place] [address] Care Team Providers Name Role Phone Marlin Miramontes APRN Primary Care Provider Reason for Visit Reason Comments Medication Refill Encounter Details Date Type Department Care Team Description 01/04/2017 Refill Psychiatry and Behavioral IlerAustin MD [facility] at [facility] Y[place] [address] [place], [place] [id number] [phone] (Wo rk) Social History Tobacco Use Types Packs/Day Years Used Date Never Smoker Alcohol Use Standard Drinks/Week Comments No 0 (1 standard drink = 0.6 oz pure alcoho l) Sex Assigned at Date Recorded Female 02/11/2021 8:25 PM EDT documented as of this encounter Plan of Treatment Upcoming Encounters Date Type Specialty Care Team Description 06/30/2022 TH Visit (TeleHealth) Psychiatry Ashtyn Joseph APRN [facility] PSYCHIATRY [place], [place] [address] (Wo rk) documented as of this encounter Visit Diagnoses Not on filedocumented in this encounter Care Teams Alliance Manager Relationship Specialty Start Date End Date Marlin Miramontes APRN PCP - General 06/14/13 01/25/17 documented as of this encounter
--- OUTSIDE RECORDS SUMMARY | 2022-05-26 22:01 | XMS_ITS | Encounter Summary ---
:1965 [place] [address] Care Team Providers Name Role Phone Marlin Miramontes APRN Primary Care Provider Reason for Visit Reason Onset Date Comments Medication Refill 05/07/2016 Encounter Details Date Type Department Care Team Description 05/07/2016 Refill Psychiatry Jermaine Kasper, [facility] [place] [phone] PSYCHIATRY DEPT [phone] [place], [place] [address] (Wo rk) Social History Tobacco Use Types Packs/Day Years Used Date Never Smoker Alcohol Use Standard Drinks/Week Comments No 0 (1 standard drink = 0.6 oz pure alcoho l) Sex Assigned at Date Recorded Female 02/11/2021 8:25 PM EDT documented as of this encounter Plan of Treatment Upcoming Encounters Date Type Specialty Care Team Description 06/30/2022 TH Visit (TeleHealth) Psychiatry Ashtyn Joseph APRN [facility] [address] [place], [place] [address] (Wo rk) documented as of this encounter Visit Diagnoses Not on filedocumented in this encounter Care Teams Traffic Officer Relationship Specialty Start Date End Date Marlin Miramontes APRN PCP - General 06/14/13 01/25/17 documented as of this encounter
--- OUTSIDE RECORDS SUMMARY | 2022-05-26 22:01 | XMS_ITS | Encounter Summary ---
:1965 Author Organization [facility] [place] [address] Care Team Providers Name Role Phone Marlin Miramontes DANNA Primary Care Provider Reason for Visit Reason Onset Date Comments Medication Refill 10/06/2016 Encounter Details Date Type Department Care Team Description 10/06/2016 Refill Psychiatry and Behavioral Dinesh Shields MD [facility] at [facility] [place] [address] [place] [address] [phone] (Wo rk) Social History Tobacco Use Types Packs/Day Years Used Date Never Smoker Alcohol Use Standard Drinks/Week Comments No 0 (1 standard drink = 0.6 oz pure alcoho l) Sex Assigned at Date Recorded Female 02/11/2021 8:25 PM EDT documented as of this encounter Miscellaneous Notes Telephone Encounter - Dinesh Shields MD - 10/06/2016 11:30 AM EST From: Shireen Ricardo To: Dinesh Shields MD Sent: 10/06/2016 9:33 AM EST Subject: Medication Renewal Request Original authorizing provider: DINESH SHIELDS MD Shireen Fraziermadge would like a refill of the following medications: FLUoxetine (PROZAC) 40 mg Capsule [DINESH SHIELDS MD] Preferred pharmacy: [id number] - [address] Comment: documented in this encounter Plan of Treatment Upcoming Encounters Date Type Specialty Care Team Description 06/30/2022 TH Visit (TeleHealth) Psychiatry Ashtyn Joseph APRN [facility] PSYCHIATRY [place], [place] [address] (Wo rk) documented as of this encounter Visit Diagnoses Not on filedocumented in this encounter Care Teams Suspender Cutter Relationship Specialty Start Date End Date Marlin Miramontes APRN PCP - General 06/14/13 01/25/17 documented as of this encounter
--- OUTSIDE RECORDS SUMMARY | 2022-05-26 22:01 | XMS_ITS | Encounter Summary ---
:1965 Author Organization [facility] [place] [address] Care Team Providers Name Role Phone Marlin Miramontes DANNA Primary Care Provider Reason for Visit Reason Onset Date Comments Medication Refill 03/31/2016 Encounter Details Date Type Department Care Team Description 03/31/2016 Refill Psychiatry and Behavioral Dinesh Shields MD [facility] at [facility] [place] [address] [place] [address] [phone] (Wo rk) Social History Tobacco Use Types Packs/Day Years Used Date Never Smoker Alcohol Use Standard Drinks/Week Comments No 0 (1 standard drink = 0.6 oz pure alcoho l) Sex Assigned at Date Recorded Female 02/11/2021 8:25 PM EDT documented as of this encounter Miscellaneous Notes Telephone Encounter - Dinesh Shields MD - 03/31/2016 12:53 PM EDT From: Shireen Ricardo To: Dinesh Shields MD Sent: 03/31/2016 11:28 AM EDT Subject: Medication Renewal Request Original authorizing provider: DINESH SHIELDS MD Shireen Silva would like a refill of the following medications: zolpidem (AMBIEN) 5 mg Tablet [DINESH SHIELDS MD] Preferred pharmacy: [id number] Comment: documented in this encounter Plan of Treatment Upcoming Encounters Date Type Specialty Care Team Description 06/30/2022 TH Visit (TeleHealth) Psychiatry Ashtyn Joseph APRN [facility] PSYCHIATRY [place], [place] [address] (Wo rk) documented as of this encounter Visit Diagnoses Not on filedocumented in this encounter Care Teams Ordering Machine Operator Relationship Specialty Start Date End Date Marlin Miramontes APRN PCP - General 06/14/13 01/25/17 documented as of this encounter
--- OUTSIDE RECORDS SUMMARY | 2022-05-26 22:01 | XMS_ITS | Encounter Summary ---
:1965 Author Organization [facility] Address [facility] [place] [address] Care Team Providers Name Role Phone Marlin Miramontes Ashtyn CLAY Primary Care Provider Encounter Details Date Type Department Care Team Description 06/09/2016 Office Visit Psychiatry and [place], Bipolar d simon, [facility] [place] current episode [facility] depressed, severe, [facility] [address] without [address] PSYCHIATRY features [place] [phone] Social History Tobacco Use Types Packs/Day Years Used Date Never Smoker Alcohol Use Standard Drinks/Week Comments No 0 (1 standard drink = 0.6 oz pure alcoho l) Sex Assigned at Date Recorded Female 02/11/2021 8:25 PM EDT documented as of this encounter Last Filed Vital Signs Vital Sign Reading Time Taken Comments Blood Pressure 124/65 06/09/2016 2:41 PM EDT Pulse 60 06/09/2016 2:41 PM EDT Temperature - - Respiratory Rate - - Oxygen Saturation - - Inhaled Oxygen Concentration - - Weight 73.4 kg (161 lb 12.8 oz) 06/09/2016 2:41 PM EDT Height 167.6 cm (5' 6) 06/09/2016 2:41 PM EDT Body Mass Index 26.12 06/09/2016 2:41 PM EDT documented in this encounter Progress Notes Demetrius Deng MD - 06/09/2016 3:14 PM EDT PSYCHIATRY TEACHING PHYSICIAN INVOLVEMENT Location: [facility], [address] Attending Physician: Demetrius Deng MD Resident name: Austin Wolfe MD I saw and evaluated the patient with Dr Wolfe. Please see her note for details. I reviewed the patient's history during the visit and I agree with the details as written. My exam confirms the resident's findings. The assessment and plan were formulated in discussion with me and I agree with them as documented. Major issues addressed/discussed: Shireen Silva is a 51 y.o. female with h/o bipolar disorder. H/o manic episodes where she would have excessive spending, no other dangerous behavior. Most problematichas been depression for past several years. Most recent lithium level therapeutic. Would like to increase Prozac to 40mg, which helped in past. Given concern for precipitating manic episode is open to having small amount of rescue medicine like zyprexa on hand for signs/symptoms diana (and she will tel her to look out for those). Would also call Dr Wolfe if those symptoms emerged (would go to ER if unsafe). No SI with plan or intent - would get self to safe place if felt unsafe. Lives with family. . DEMETRIUS DENG MD Austin Wolfe MD - 06/09/2016 2:51 PM EDT ESTABLISHED ADULT PATIENT OFFICE VISIT NOTE Time Spent: 30 min Attendee(s): pt This patient was seen with Dr. Demetrius Deng See her note for confirmatory and/or revisionary documentation. HISTORY Chief Complaint: Shireen Silva is a 51 y.o. Female presents today for medication management/follow up HPI: () Patient reports that things have been not great since her last appointment. She expresses that shehas been feeling very stressed recently, in particular because she and her are refinancing their home, and he is going to be going to 5 weeks of job training in preparation for a job transition, which she feels means she has to deal with most of the home stress by herself. She has continued tofeel depressed, apathetic/anergic, fatigued, and suicidal (chronic, without plan/intent). She was able to get labs a month and a half ago, which showed lithium level of 0.75 and normal renal/thyroid function. She is still interested in increasing her fluoxetine to 40 mg We reviewed her previous experience with 40 mg fluoxetine, and she continues to feel that there was not really any problem, although she does acknowledge that in the past she has had significant difficulty with out of control spending. She does not feel this is a significant risk currently as she and her have limited the means she has to spend money. She denies any problems with sleep (6- 7 hrs/night) and does not feel she has been experiencing any manic symptoms recently. She does endorse ongoing EtOH use - because it relaxes me, and I like wine, average 2 glasses/night. She denies any problems with feeling she needs EtOH, missing drinks, tremors, anxiety, or other symptoms of dependence or withdrawal. She denies any problems with her current medication regimen, and states she has been compliant with meds. Quality: not great Severity: severe Duration: chronic Timing: daily Context: psychosocial stressors, ongoing EtOH use Modifying factors: has not had any improvement with stable lithium dosing Associated S&S: depressed mood, apathy Most recent PHQ9: PHQ9 06/07/2016 Little interest or pleasure More than half the days Down, depressed, hopeless Several days Trouble sleeping Not at all Tired or no energy Several days Poor appetite or overeating Several days Feeling like a failure Several days Trouble concentrating (newspaper) Several days Moving or speaking slowly Not at all Would be better off Several days PHQ9 Scores 8 (Mild Depression) Current Medications: Current Outpatient Prescriptions Medication Sig Dispense Refill ??? zolpidem (AMBIEN) 5 mg Tablet Take 0.5-1 tablets by mouth nightly as needed for Sleep. 30 tablet0 ??? FLUoxetine (PROZAC) 20 mg Tablet Take 1 tablet by mouth daily. Take with 10 mg capsule for totaldose of 30 mg 30 tablet 1 ??? lithium (LITHOBID) 300 mg Tablet Sustained Release Take 2-3 tablets by mouth 2 times daily. Take2 tablets in the morning, and 3 tablets at night 150 tablet 3 ??? buPROPion (WELLBUTRIN XL) 300 mg Tablet Sustained Release 24 hr Take 1 tablet by mouth every morning. 30 tablet 5 ??? FLUoxetine (PROZAC) 10 mg Capsule Take 1 capsule by mouth daily. Take with 20 mg capsule for total dose of 30 mg 30 capsule 12 ??? LORazepam (ATIVAN) 0.5 mg Tablet Take 1 tablet by mouth every 6 hours as needed (panic attacks).7 tablet 3 ??? cetirizine (ZYRTEC) 10 mg tablet Take 10 mg by mouth daily. Indications: Seasonal Allergic Rhinitis ??? multivitamin (THERAGRAN) tablet Take 1 tablet by mouth daily. ??? UNABLE TO FIND Med Name: [facility] Body protein shakes. Per website, each contains vitamins, minerals, and the following list of supplements. Bilberry, Goji foley, Grape seed, Green tea, Chlorella, Spirulina, Spinach, Barley grass, Wheat grass, Oat grass, Kamut grass (Khorasan wheat), Ashwagandha, Astragalus, Cordyceps, Gingko biloba, Maitake, Reishi, Schisandra, Carlitos (Holy basil), Yacon root, Lactobacillus sporogenes, Amylase, Cellulase, Lactase, Lipase, Protease, Bromelain, Papain, Scout inchi (Inca peanut), Flax seed, Whey protein isolate, Camu-camu, Moringa, Maria De Jesus root, Gustavo, Quinoa, Amaranth, Pea, Acai, Acerola siegel, Michael Burns Stout, Coconut flower nectar, Pomegranate, Blueberry, Ramya hips, Apple pectin. ??? pseudoephedrine (SUDAFED) 30 mg tablet Take 30 mg by mouth every 4 hours as needed. ??? calcium carbonate (TUMS) 200 mg calcium (500 mg) chewable tablet Take 1 tablet by mouth daily asneeded. No current facility-administered medications for this visit. Pertinent Medication Side Effects: None reported Review of Systems: (12/01/09) Constitutional: endorses appetite increase Eyes: ENT: Cardiovascular: Respiratory: GI: no N/V : Musculoskeletal: Integumentary: Neurological: Psychiatric: See HPI above Endocrine: Hematologic/Lymphatic: Allergic/Immunological: See reviewed allergies PFSH: () Past Medical/Psychiatric History: Last lithium level 0.75 . She has been able to find a therapist [facility], and has an intake with him next week (Xavier Vee). Family Psychiatric and Medical History: no interval change Social History: patient living at home with and two sons (oldest 23). She is feeling stressed because of several financial and vocational changes at home. EXAM [05/08/14 bullets (incl VS)] Constitutional System ? Vital Signs: Blood pressure 124/65, pulse 60, height 167.6 cm (5' 6), weight 73.4 kg (161 lb 12.8oz). Musculoskeletal System ? Muscle Strength/Tone (note atrophy, abnormal movements): no abnormalities noted ? Gait and Station: WNL Psychiatric System ? General Appearance/Behavior: female patient, appropriately groomed/dressed, interactive/cooperative with socially appropriate eye contact, who appears comfortable ? Speech: normal volume/rate/prosody ? Thought Process: linear/coherent ? Associations: tight ? Abnormal Thoughts and Perceptions / Thought Content: Homicidality / Violent Thoughts: none reported/elicited Suicidality: chronic baseline SI, passive, without plan/intent Hallucinations: none reported/elicited Delusions: none reported/elicited Obsessions: none reported/elicited ? Judgment and Insight: fair/limited ? Mood & Affect: not great/affect is anxious ? Orientation: x 3 ? Attention/Concentration: alert/attentive and without need for redirection ? Memory: grossly intact to recent/remote events ? Language: fluent ? Fund of Knowledge: average Psychotherapeutic Interventions and Response: n/a MEDICAL DECISION MAKING ASSESSMENT: Shireen Silva is a 51 y.o. Female with bipolar disorder, current episode depressed. Hersymptoms are unchanged, and no acute safety concerns were identified during this assessment. She continues to express significant symptoms of depression, and would still like to increase her fluoxetine. We reviewed what happened last time, noting that she is currently therapeutic on her lithium. Discussed the R/B/SE, and encouraged her to make a plan with her family to identify and react to any possible mood destabilization quickly before she can become manic and get into problems (e.g with finances). She states her and sons are all able to help her maintain awareness of her mood, and that she already has limits on spending in place. She remains resistant to the idea of an atypical antipsychotic or lamotrigine to address her depression, but is willing to fill a small supply of olanzapine to be used should her mood significantly destabilize at home. PLAN: Continue current medications with the following adjustments: Increase fluoxetine to 40 mg daily Olanzapine 2.5 mg nightly PRN for symptoms of diana (5 tablets provided) Patient to brainstorm warning symptoms and involve her family to assist her in catching any symptomsof mood destabilization early Continue lithium without adjustment Encouraged patient to engage with new therapist RTC in 4 weeks (or sooner if needed). Patient has instructions to contact this fiction and nonfiction writer prose if needed Patient Instruction/Education provided: Patient provided written and verbal instructions regarding treatment plan. Patient understands the plan? Yes documented in this encounter Plan of Treatment Upcoming Encounters Date Type Specialty Care Team Description 06/30/2022 TH Visit (TeleHealth) Psychiatry Ashtyn Joseph APRN [facility] PSYCHIATRY [place], [place] [address] (Wo rk) documented as of this encounter Visit Diagnoses Diagnosis Bipolar disorder, current episode depres sed, severe, without psychotic features Bipolar I disorder, most recent episode (or current) depressed, severe, without mention of psychotic behavior documented in this encounter Care Teams Tax Form Preparer Relationship Specialty Start Date End Date Marlin Miramontes APRN PCP - General 06/14/13 01/25/17 documented as of this encounter
--- OUTSIDE RECORDS SUMMARY | 2022-05-26 22:01 | XMS_ITS | Encounter Summary ---
:1965 Author Organization [facility] [place] [address] Care Team Providers Name Role Phone MiramontesAniyasudha Chamorro APRN Primary Care Provider Encounter Details Date Type Department Care Team Description 03/24/2016 Office Visit Psychiatry and Austin Wolfe, Bipolar 1 disorder, depressed, partial remission; Behavioral Health at MD Encounter for long-term (current) drug u se [facility] [address] PSYCHIATRY [place] [phone] Social History Tobacco Use Types Packs/Day Years Used Date Never Smoker Alcohol Use Standard Drinks/Week Comments No 0 (1 standard drink = 0.6 oz pure alcoho l) Sex Assigned at Date Recorded Female 02/11/2021 8:25 PM EDT documented as of this encounter Last Filed Vital Signs Vital Sign Reading Time Taken Comments Blood Pressure 113/62 03/24/2016 10:16 AM EDT Pulse 74 03/24/2016 10:16 AM EDT Temperature - - Respiratory Rate - - Oxygen Saturation - - Inhaled Oxygen Concentration - - Weight - - Height 167.6 cm (5' 6) 03/24/2016 10:16 AM EDT Body Mass Index - - documented in this encounter Progress Notes Zhanna Lorenzo MD - 03/29/2016 12:10 PM EDT PSYCHIATRY TEACHING PHYSICIAN INVOLVEMENT Location: Office Attending Physician: Zhanna Lorenzo MD Resident name: Austin Wolfe MD I saw and evaluated the patient with the above named resident/ See their note for details. I reviewed the patient's history during the visit and I agree with the details as written. My exam confirms the resident's findings. The assessment and plan were formulated in discussion with me and I agree with them as documented. Major issues addressed/discussed: We reviewed the current status of the patient's symptoms and complaints. She reports an increase in anxiety and slight decrease in number of days in which she feels depressed. She is rather vague about her ETOH consumption, so we reiterated the link between alcohol, de pression, and anxiety and asked her to minimize the drinking. We have an ongoing negotiation with Ms. Silva regarding the dosing of fluoxetine in the context of her bipolar disorder. This time we felt it polanco to leave the dose unchanged and check lithium level (with Cr, BUN, and TSH) prior to the next meeting. Her last Li level was only 0.58 but she does not want to increase the dose. Additional comments: none. Austin Wolfe MD - 03/24/2016 10:23 AM EDT ESTABLISHED ADULT PATIENT OFFICE VISIT NOTE Time Spent: 30 min Attendee(s): pt This patient was seen with Dr. Zhanna Lorenzo See her note for confirmatory and/or revisionary documentation. HISTORY Chief Complaint: Shireen Silva is a 50 y.o. Female presents today for medication management/follow up HPI: () Patient reports that since her last appointment in September she has been feeling a little bit improved, primarily in the area of motivation, noting that she has been able to help herself organize andaccomplish some tasks which has been good. Overall, however she feels that her mood is unchanged, still mainly depressed with only occasional periods of euthymia. She reports she has been sleeping well(7 hrs/night with 5 mg nightly of zolpidem), but still often feels fatigued during the day and will occasionally nap. She reports ongoing SI (baseline, without plan/intent) which has not changed. She endorses some weight gain recently, but is unsure of the cause of that (less active in winter, eating more, meds?). She feels that her anxiety has been elevated overall, and reports several panic attacksin the last few months (including one last night) which is more than normal for her. She notes that her has been considering a new job and possibly moving, which threw me for a loop and has been stressful for her. She denies any manic symptoms since September. She denies impulsive or reckless behavior (specifically spending), increased energy, racing thoughts, distractibility, decreased need for sleep, or euphoric or irritable mood. She denies any medication side effects. Quality: a bit of improvement Severity: mod Duration: chronic Timing: daily Context: medication compliance Modifying factors: some benefit from meds Associated S&S: anxiety Most recent PHQ9: PHQ9 03/17/2016 Little interest or pleasure Several days Down, depressed, hopeless Several days Trouble sleeping Several days Tired or no energy Several days Poor appetite or overeating Not at all Feeling like a failure Several days Trouble concentrating (newspaper) Not at all Moving or speaking slowly Not at all Would be better off Several days PHQ9 Scores 6 (Mild Depression) Current Medications: Current Outpatient Prescriptions Medication Sig Dispense Refill ??? lithium (LITHOBID) 300 mg Tablet Sustained Release Take 2-3 tablets by mouth 2 times daily. Take2 tablets in the morning, and 3 tablets at night 150 tablet 3 ??? zolpidem (AMBIEN) 5 mg Tablet Take 0.5-1 tablets by mouth nightly as needed for Sleep. 30 tablet0 ??? FLUoxetine (PROZAC) 20 mg Tablet Take 1 tablet by mouth daily. Take with 10 mg capsule for totaldose of 30 mg 30 tablet 1 ??? buPROPion (WELLBUTRIN XL) 300 mg Tablet [...] mouth daily. Indications: Seasonal Allergic Rhinitis ??? calcium carbonate (TUMS) 200 mg calcium (500 mg) chewable tablet Take 1 tablet by mouth daily asneeded. ??? multivitamin (THERAGRAN) tablet Take 1 tablet by mouth daily. ??? UNABLE TO FIND Med Name: Lainey Fermin Body protein shakes. Per website, each contains [...] by mouth every 4 hours as needed. No current facility-administered medications for this visit. Pertinent Medication Side Effects: Denies, but wonders about weight gain Review of Systems: (12/01/09) Constitutional: endorses occasional fatigue Eyes: ENT: Cardiovascular: Respiratory: GI: no N/V : Musculoskeletal: Integumentary: Neurological: Psychiatric: See HPI above Endocrine: Hematologic/Lymphatic: Allergic/Immunological: See reviewed allergies PFSH: () Past Medical/Psychiatric History: no interval change Family Psychiatric and Medical History: no interval change Social History: Patient reports that her is thinking about changing jobs, and possibly moving, which she finds quite stressful. She reports that her EtOH consumption has been variable recently,and she regularly goes weeks without drinking, but has weeks where she does drink. She does not feelthis is a problem at this time. EXAM [05/08/14 bullets (incl VS)] Constitutional System ? Vital Signs: Blood pressure 113/62, pulse 74, height 167.6 cm (5' 6). Musculoskeletal System ? Muscle Strength/Tone (note atrophy, abnormal movements): no abnormalities noted ? Gait and Station: WNL Psychiatric System ? General Appearance/Behavior: female patient, appropriately groomed/dressed, interactive/cooperative and with socially appropriate eye contact. ? Speech: normal volume/rate/prosody ? Thought Process: linear/coherent and goal-directed ? Associations: tight ? Abnormal Thoughts and Perceptions / Thought Content: Homicidality / Violent Thoughts: none reported/elicited Suicidality: chronic baseline SI, passive, without plan/intent Hallucinations: none reported/elicited Delusions: none reported/elicited Obsessions: none reported/elicited ? Judgment and Insight: fair ? Mood & Affect: depressed/affect is anxious ? Orientation: x 3 ? Attention/Concentration: alert/attentive and without need for redirection ? Memory: grossly intact to recent/remote events ? Language: fluent ? Fund of Knowledge: average Psychotherapeutic Interventions and Response: n/a MEDICAL DECISION MAKING ASSESSMENT: Shireen Silva is a 50 y.o. Female with BPAD, most recent episode depressed. Her symptoms are minimally improved. She reports that the most recent change of increasing her fluoxetine to 30 mg did provide some small benefit, but overall she feels her mood has remained depressed and unchanged. Fortunately there have been no manic symptoms reported, and she has been compliant with her lithium by report. She continues to have baseline SI without plan or intent, and no acute safety concerns were identified at today's appointment. Discussed options for medication management with patient. Reviewed options for bipolar depression (specifically lamotrigine, quetiapine, and lurasidone) as being options. Patient is not interested in these options at this time. May be possible to increase her fluoxetine again, but would want to know that lithium is therapeutic before doing so. She is agreeable to obtain labs prior to next appointment. Encouraged her to consider therapy, and look for a therapist in her region. PLAN: Continue current medications without adjustment Labs: lithium level, BMP, TSH to be obtained prior to next appointment Encouraged patient to seek a therapist to work on her mood symptoms with in her regions RTC in 4-6 weeks Patient Instruction/Education provided: Patient provided written and verbal instructions regarding treatment plan. Patient understands the plan? Yes documented in this encounter Plan of Treatment Upcoming Encounters Date Type Specialty Care Team Description 06/30/2022 TH Visit (TeleHealth) Psychiatry Ashtyn Joseph APRN [facility] PSYCHIATRY [place], [place] [address] (Wo rk) documented as of this encounter Visit Diagnoses Diagnosis Bipolar 1 disorder, depressed, partial r emission Bipolar I disorder, most recent episode (or current) depressed, in partial or unspecified remission Encounter for long-term (current) drug u se Encounter for long-term (current) use of other medications documented in this encounter Care Teams Footwear Production Machine Operator Relationship Specialty Start Date End Date Marlin Miramontes APRN PCP - General 06/14/13 01/25/17 documented as of this encounter
--- OUTSIDE RECORDS SUMMARY | 2022-05-26 22:01 | XMS_ITS | Encounter Summary ---
:1965 Author Organization [facility] [address] Care Team Providers Name Role Phone Virginie Gudino APRN Primary Care Provider Reason for Visit Reason Comments Medication Refill Encounter Details Date Type Department Care Team Description 05/19/2017 Refill Psychiatry and Behavioral IlerAustin MD [facility] [place] [address] [place] [address] [phone] (Wo rk) Social History Tobacco Use Types [...] Ashtyn Joseph APRN [facility] PSYCHIATRY [place], [place] [address] (Wo rk) documented as of this encounter Visit Diagnoses Not on filedocumented in this encounter Care Teams Dragline Mechanic Relationship Specialty Start Date End Date Virginie Gudino APRN PCP - General Family Medicine 06/16/18 [place] [address] documented as of this encounter
--- OUTSIDE RECORDS SUMMARY | 2022-05-26 22:01 | XMS_ITS | Encounter Summary ---
:1965 Author Organization [facility] [place] [address] Care Team Providers Name Role Phone Marlin Miramontes DANNA Primary Care Provider Reason for Visit Reason Onset Date Comments Medication Refill 11/20/2016 Encounter Details Date Type Department Care Team Description 11/20/2016 Refill Psychiatry and Behavioral Dinesh Shields MD [facility] at [facility] Yg [place] [address] [place] [address] [phone] (Wo rk) Social History Tobacco Use Types Packs/Day Years Used Date Never Smoker Alcohol Use Standard Drinks/Week Comments No 0 (1 standard drink = 0.6 oz pure alcoho l) Sex Assigned at Date Recorded Female 02/11/2021 8:25 PM EDT documented as of this encounter Miscellaneous Notes Telephone Encounter - Misa Marvin - 11/20/2016 1:29 PM EST Script was mailed to Debbie Kaur [address] [place] [address] for the Ambien on 11/20/16 Telephone Encounter - Dinesh Shields MD - 11/20/2016 1:02 PM EST From: Shireen Silva To: Dinesh Shields MD Sent: 11/20/2016 12:42 PM EST Subject: Medication Renewal Request Original authorizing provider: DINESH SHIELDS MD Shireen Silva would like a refill of the following medications: zolpidem (AMBIEN) 5 mg Tablet [DINESH SHIELDS MD] Preferred pharmacy: [facility] [id number] Comment: documented in this encounter Plan of Treatment Upcoming Encounters Date Type Specialty Care Team Description 06/30/2022 TH Visit (TeleHealth) Psychiatry Ashtyn Joseph APRN [facility] PSYCHIATRY [place], [place] [address] (Wo rk) documented as of this encounter Visit Diagnoses Not on filedocumented in this encounter Care Teams Avp Relationship Specialty Start Date End Date Marlin Miramontes APRN PCP - General 06/14/13 01/25/17 documented as of this encounter
--- OUTSIDE RECORDS SUMMARY | 2022-05-26 22:01 | XMS_ITS | Encounter Summary ---
:1965 Author Organization [facility] [place] [address] Care Team Providers Name Role Phone Marlin Miramontes DANNA Primary Care Provider Reason for Visit Reason Onset Date Comments Medication Refill 12/17/2015 Encounter Details Date Type Department Care Team Description 12/17/2015 Refill Psychiatry and Behavioral Dinesh Shields MD [facility] at [facility] [place] [address] [place] [address] [phone] (Wo rk) Social History Tobacco Use Types Packs/Day Years Used Date Never Smoker Alcohol Use Standard Drinks/Week Comments No 0 (1 standard drink = 0.6 oz pure alcoho l) Sex Assigned at Date Recorded Female 02/11/2021 8:25 PM EDT documented as of this encounter Miscellaneous Notes Telephone Encounter - Dinesh Shields MD - 12/17/2015 2:20 PM EST From: Shireen Ricardo To: Dinesh Shields MD Sent: 12/17/2015 12:47 PM EST Subject: Medication Renewal Request Original authorizing provider: DINESH SHIELDS MD Shireen Badillodge would like a refill of the following medications: FLUoxetine (PROZAC) 20 mg Tablet [DINESH SHIELDS MD] Preferred pharmacy: [id number] - [address] Comment: documented in this encounter Plan of Treatment Upcoming Encounters Date Type Specialty Care Team Description 06/30/2022 TH Visit (TeleHealth) Psychiatry Ashtyn Joseph APRN [facility]AT[facility] [place], [place] [address] (Wo rk) documented as of this encounter Visit Diagnoses Not on filedocumented in this encounter Care Teams Assembler Chassis Relationship Specialty Start Date End Date Marlin Miramontes APRN PCP - General 06/14/13 01/25/17 documented as of this encounter
--- OUTSIDE RECORDS SUMMARY | 2022-05-26 22:01 | XMS_ITS | Encounter Summary ---
:1965 Author Organization [facility] [place] [address] Care Team Providers Name Role Phone Unknown Primary Care Provider Unavailable Encounter Details Date Type Department Care Team Description 03/05/2017 External Results Psychiatry and Behavioral Provider, [facility] [place] [place] [address] Social History Tobacco Use Types Packs/Day [...] Psychiatry Ashtyn Joseph APRN [facility] [address], [place] [address] (Wo rk) documented as of this encounter Procedures Procedure Name Priority Date/Time Associated Diagnosis Comme nts LAB SCAN Routine 03/04/2017 Results for thi s procedure are in the resu lts section. documented in this encounter Results Scan Doc: Lab (03/04/2017) Narrative This result has an attachment that is no t available. Scanning Provider MEDIA MGR SCAN EXT ORDR/RSLT documented in this encounter Visit Diagnoses Not on filedocumented in this encounter Care Teams Medical Lab Technician Relationship Specialty Start Date End Date Unknown PCP - General 01/26/17 05/10/17 None documented as of this encounter
--- OUTSIDE RECORDS SUMMARY | 2022-05-26 22:01 | XMS_ITS | Encounter Summary ---
:1965 Author Organization [facility] [place] [address] Care Team Providers Name Role Phone Marlin Miramontes APRN Primary Care Provider Reason for Visit Reason Comments Medication Refill Encounter Details Date Type Department Care Team Description 08/05/2016 Refill Psychiatry and Behavioral IlerAustin MD [facility] at [facility] [place] [address] [place], [place] [id number] [phone] (Wo rk) Social History Tobacco Use Types Packs/Day Years Used Date Never Smoker Alcohol Use Standard Drinks/Week Comments No 0 (1 standard drink = 0.6 oz pure alcoho l) Sex Assigned at Date Recorded Female 02/11/2021 8:25 PM EDT documented as of this encounter Plan of Treatment Upcoming Encounters Date Type Specialty Care Team Description 06/30/2022 TH Visit (TeleHealth) Psychiatry Ashtyn Joseph APRN [facility] PSYCHIAT[facility] [place], [place] [address] (Wo rk) documented as of this encounter Visit Diagnoses Not on filedocumented in this encounter Care Teams Mover Helper Relationship Specialty Start Date End Date Marlin Miramontes APRN PCP - General 06/14/13 01/25/17 documented as of this encounter
--- OUTSIDE RECORDS SUMMARY | 2022-05-26 22:01 | XMS_ITS | Encounter Summary ---
:1965 Author Organization [facility] [place] [address] Care Team Providers Name Role Phone Marlin Miramontes APRN Primary Care Provider Encounter Details Date Type Department Care Team Description 05/12/2016 External Results Psychiatry and Behavioral Provider, [facility] [address] Social History Tobacco Use Types Packs/Day Years Used Date Never Smoker Alcohol Use Standard Drinks/Week Comments No 0 (1 standard drink = 0.6 oz pure alcoho l) Sex Assigned at Date Recorded Female 02/11/2021 8:25 PM EDT documented as of this encounter Plan of Treatment Upcoming Encounters Date Type Specialty Care Team Description 06/30/2022 TH Visit (TeleHealth) Psychiatry Mohan Joseph APRN [facility] [address] [place], [place] [address] (Wo rk) documented as of this encounter Procedures Procedure Name Priority Date/Time Associated Diagnosis Comme nts LAB SCAN Routine 04/16/2016 documented in this encounter Results Scan Doc: Lab (04/16/2016) Narrative This result has an attachment that is no t available. Scanning Provider MEDIA MGR SCAN EXT ORDR/RSLT documented in this encounter Visit Diagnoses Not on filedocumented in this encounter Care Teams Rehabilitation Services Director Relationship Specialty Start Date End Date Marlin Miramontes APRN PCP - General 06/14/13 01/25/17 documented as of this encounter
--- OUTSIDE RECORDS SUMMARY | 2022-05-26 22:01 | XMS_ITS | Encounter Summary ---
:1965 Author Organization [facility] [place] [address] Care Team Providers Name Role Phone Unknown Primary Care Provider Unavailable Reason for Visit Reason Onset Date Comments Medication Refill 04/29/2017 Encounter Details Date Type Department Care Team Description 04/30/2017 Refill Psychiatry and Behavioral Dinesh Shields MD [facility] [place] [address] [place] [address] [phone] (Wo rk) Social History Tobacco Use Types Packs/Day Years Used Date Never Smoker Alcohol Use Standard Drinks/Week Comments No 0 (1 standard drink = 0.6 oz pure alcoho l) Sex Assigned at Date Recorded Female 02/11/2021 8:25 PM EDT documented as of this encounter Miscellaneous Notes Telephone Encounter - Dinesh Shields MD - 04/30/2017 10:02 AM EDT From: Shireen Silva To: Dinesh Shields MD Sent: 04/29/2017 9:57 PM EDT Subject: Medication Renewal Request Original authorizing provider: DINESH SHIELDS MD Shireen Ricardo would like a refill of the following medications: zolpidem (AMBIEN) 5 mg Tablet [DINESH SHIELDS MD] Preferred pharmacy: [facility] [id number] Comment: documented in this encounter Plan of Treatment Upcoming Encounters Date Type Specialty Care Team Description 06/30/2022 TH Visit (TeleHealth) Psychiatry Ashtyn Joseph, DANNA [facility] [address] [place], [place] [address] (Wo rk) documented as of this encounter Visit Diagnoses Not on filedocumented in this encounter Care Teams Svp Business Development Relationship Specialty Start Date End Date Unknown PCP - General 01/26/17 05/10/17 None documented as of this encounter
--- OUTSIDE RECORDS SUMMARY | 2022-05-26 22:01 | XMS_ITS | Encounter Summary ---
:1965 Author Organization [facility] [address] Care Team Providers Name Role Phone Marlin Miramontes DANNA Primary Care Provider Reason for Visit Reason Onset Date Comments Medication Refill 10/14/2016 Encounter Details Date Type Department Care Team Description 10/15/2016 Refill Psychiatry and Behavioral Dinesh Shields MD [facility] at [facility] Yg [place] [address] [place] [address] [phone] (Wo rk) Social History Tobacco Use Types Packs/Day Years Used Date Never Smoker Alcohol Use Standard Drinks/Week Comments No 0 (1 standard drink = 0.6 oz pure alcoho l) Sex Assigned at Date Recorded Female 02/11/2021 8:25 PM EDT documented as of this encounter Miscellaneous Notes Telephone Encounter - Dinesh Shields MD - 10/15/2016 9:19 AM EST From: Shireen Ricardo To: Dinesh Shields MD Sent: 10/14/2016 1:29 AM EST Subject: Medication Renewal Request Original authorizing provider: DINESH SHIELDS MD Shireen Badillodge would like a refill of the following medications: zolpidem (AMBIEN) 5 mg Tablet [DINESH SHIELDS MD] Preferred pharmacy: [facility] [id number] Comment: documented in this encounter Plan of Treatment Upcoming Encounters Date Type Specialty Care Team Description 06/30/2022 TH Visit (TeleHealth) Psychiatry Ashtyn Joseph APRN [facility] PSYCHIATRY [place], [place] [address] (Wo rk) documented as of this encounter Visit Diagnoses Not on filedocumented in this encounter Care Teams Surveillance Technician Relationship Specialty Start Date End Date Marlin Miramontes APRN PCP - General 06/14/13 01/25/17 documented as of this encounter
--- OUTSIDE RECORDS SUMMARY | 2022-05-26 22:01 | XMS_ITS | Encounter Summary ---
:1965 Author Organization [facility] [place] [address] Care Team Providers Name Role Phone Unknown Primary Care Provider Unavailable Encounter Details Date Type Department Care Team Description 03/23/2017 Office Visit Psychiatry and Austin Wolfe, Bipolar d simon, Behavioral Health at [place] current episode [facility] depressed, severe, [facility] [address] PSYCHIATRY features [place] [phone] Social History Tobacco Use Types Packs/Day Years Used Date Never Smoker Alcohol Use Standard Drinks/Week Comments No 0 (1 standard drink = 0.6 oz pure alcoho l) Sex Assigned at Date Recorded Female 02/11/2021 8:25 PM EDT documented as of this encounter Progress Notes Austin Wolfe MD - 03/23/2017 1:30 PM EDT ESTABLISHED ADULT PATIENT OFFICE VISIT NOTE Time Spent: 30 min Attendee(s): pt This patient was seen with Dr. Kirsten Chawla See her note for confirmatory and/or revisionary documentation. HISTORY Chief Complaint: Shireen Silva is a 51 y.o. Female presents today for medication management/follow up HPI: () Patient reports that since her last appointment things have been a bit worse, with a bad depressive period of about 2 weeks about a month ago, a return to baseline, and now a more recent decline over the last week. Notes her therapist has found a pattern of baseline depression with periodic dips. She doesn't identify any clear trigger for recent decompensation, and notes that things are actually stable at home (e.g relationships, finances). Notes she is particularly concerned about weight, andwonders if that is the fluoxetine. She states she isn't sure if she wants to give up on the fluoxetine or not. Endorses increased EtOH use, she acknowledges that this doesn't help in the long-term, butrelaxes and helps to calm rapid thoughts. She endorses 3-4 drinks/day. Denies feeling like this is out of control, denies risky behavior (such as driving while intoxicated). No problems with withdrawalwhen she doesn't drink. Currently endorses sleeping more, fatigued, feels pointless. Low mood, feelings more suicidal (chronic, but thinking about it more). Denies having a plan or intent, and identifies her son as primary protective factor. Admits that she has been open with her therapist about this. She feels she can trust her therapist, and has enjoyed working with him. She hasn't been able to talk to him as much (due to therapist having need to be out of town) recently. Most recent PHQ9: PHQ9 03/20/2017 Little interest or pleasure Nearly every day Down, depressed, hopeless Nearly every day Trouble sleeping More than half the days Tired or no energy Nearly every day Poor appetite or overeating Several days Feeling like a failure More than half the days Trouble concentrating (newspaper) Several days Moving or speaking slowly Several days Would be better off Several days PHQ9 Scores 17 (Moderately Severe Depression) Current Medications: Current Outpatient Prescriptions Medication Sig Dispense Refill ??? zolpidem (AMBIEN) 5 mg Tablet Take 0.5-1 tablets by mouth nightly as needed for Sleep. 30 tablet0 ??? FLUoxetine (PROZAC) 40 mg Capsule TAKE ONE CAPSULE BY MOUTH EVERY DAY 30 capsule 2 ??? lithium (LITHOBID) 300 mg Tablet Sustained Release TAKE TWO TABLETS BY MOUTH EVERY MORNING AND TAKE THREE TABLETS BY MOUTH EVERY EVENING 150 tablet 3 ??? calcium carbonate (TUMS) 200 mg calcium (500 mg) chewable tablet Take 1 tablet by mouth daily asneeded. ??? multivitamin (THERAGRAN) tablet Take 1 tablet by mouth daily. ??? LORazepam (ATIVAN) 0.5 mg Tablet Take 1 tablet by mouth every 6 hours as needed (panic attacks).(Patient not taking: Reported on 03/23/2017) 21 tablet 3 ??? OLANZapine (ZYPREXA) 2.5 mg [...] for this visit. Pertinent Medication Side Effects: none reported, concerned for weight gain with fluoxetine Review of Systems: (12/01/09) Constitutional: c/o fatigue Eyes: ENT: Cardiovascular: Respiratory: GI: : Musculoskeletal: Integumentary: Neurological: Psychiatric: See HPI above Endocrine: Hematologic/Lymphatic: Allergic/Immunological: See reviewed allergies PFSH: () Past Medical/Psychiatric History: Citalopram Venlafaxine Fluoxetine Bupropion (current) Risperidone [place] (current) Oxcarbazepine Clonazepam Lorazepam (current) Zolpidem (current) Eszopiclone Family Psychiatric and Medical History: no interval change Social History: reports things going well at home, youngest still at home (senior in high school next year). Still in regular therapy EXAM [05/08/14 bullets (incl VS)] Constitutional System ? Vital Signs: There were no vitals taken for this visit. Musculoskeletal System ? Muscle Strength/Tone (note atrophy, abnormal movements): No abnormalities noted ? Gait and Station: WNL Psychiatric System ? General Appearance/Behavior: female patient, casually groomed/dressed, interactive/cooperative with socially appropriate mannerisms ? Speech: normal volume/rate/prosody ? Thought Process: linear/coherent and goal-directed ? Associations: tight ? Abnormal Thoughts and Perceptions / Thought Content: Homicidality / Violent Thoughts: none reported/elicited Suicidality: chronic passive SI without plan/intent Hallucinations: none reported/elicited Delusions: none reported/elicited Obsessions: none reported/elicited ? Judgment and Insight: fair ? Mood & Affect: 'depressed'/affect is anxious ? Orientation: X 3 ? Attention/Concentration: alert/attentive without need for redirection ? Memory: grossly intact to recent/remote events ? Language: fluent ? Fund of Knowledge: average Psychotherapeutic Interventions and Response: n/a MEDICAL DECISION MAKING ASSESSMENT: Shireen Silva is a 51 y.o. Female with bipolar disorder, current episode depressed. Hersymptoms are minimally worse. Patient continues to report ongoing depression, and has had no substantial improvement with optimal lithium therapy (level in February 0.82) and fluoxetine at 40 mg daily. Patient continues to endorse chronic SI without plan/intent, but overall feels her mood is worse and is feeling more hopeless about experiencing improvement. Reviewed recommended treatments for bipolar depression, including atypical antipsychotics quetiapine and lurasidone, lamotrigine, vs a dose increase in fluoxetine. Given her lack of robust response to fluoxetine, recommend a trial of another agent. After discussion of R/B/SE, she is agreeable to a trial of lurasidone. Also discussed her EtOH use. She continues to endorse feeling her mood drives her substance use. We briefly discussed medication options, but she would like to focus on changing mood meds first. Reminded patient that 1 drink/day is the max recommended for women, and she agrees to cut down. PLAN: Discontinue fluoxetine Start lurasidone 40 mg daily (instructed to take with snack/meal) Continue other meds as prescribed RTC May 11 at 3 PM Patient Instruction/Education provided: Patient provided verbal instructions regarding treatment plan. Patient understands the plan? Yes Kirsten Chawla DO - 03/23/2017 1:30 PM EDT PSYCHIATRY TEACHING PHYSICIAN INVOLVEMENT Location: Office Attending Physician: Dr. Chawla Resident name: Dr. Wolfe I saw and evaluated the patient with the above named resident/ See their note for details. I reviewed the patient's history during the visit and I agree with the details as written. My exam confirms the resident's findings. The assessment and plan were formulated in discussion with me and I agree with them as documented. Major issues addressed/discussed: likely in MDE currently and Prozac no longer effective, likely tachyphylaxis. Switch to a medication approved for bipolar depression in her best interest, and Latuda with far better AE and metabolic profile than other options. Should be dosed twice daily as tolerated--consider doing so at next visit prior to transfer of care. documented in this encounter Plan of Treatment Upcoming Encounters Date Type Specialty Care Team Description 06/30/2022 TH Visit (TeleHealth) Psychiatry Ashtyn Joseph, MECHANICAL HANDYMAN [facility] [address] [place], [place] [address] (Wo rk) documented as of this encounter Visit Diagnoses Diagnosis Bipolar disorder, current episode depres sed, severe, without psychotic features Bipolar I disorder, most recent episode (or current) depressed, severe, without mention of psychotic behavior documented in this encounter Care Teams Physical Chemistry Teacher Relationship Specialty Start Date End Date Unknown PCP - General 01/26/17 05/10/17 None documented as of this encounter
--- OUTSIDE RECORDS SUMMARY | 2022-05-26 22:01 | XMS_ITS | Encounter Summary ---
:1965 Author Organization [facility] [place] [address] Care Team Providers Name Role Phone None Primary Care Provider Unavailable Encounter Details Date Type Department Care Team Description 05/12/2017 Notes Only Psychiatry and Behavioral Austin Wolfe MD [facility] at [facility] [place] [address] [place] [address] [phone] (Wo rk) Social History Tobacco Use Types Packs/Day Years Used Date Never Smoker Alcohol Use Standard Drinks/Week Comments No 0 (1 standard drink = 0.6 oz pure alcoho l) Sex Assigned at Date Recorded Female 02/11/2021 8:25 PM EDT documented as of this encounter Progress Notes Austin Wolfe MD - 05/12/2017 1:25 PM EDT Termination/Transfer note ?? Treatment start date: 06/25/15 ?? Treatment termination/transfer date: 05/16 ?? Diagnosis: Bipolar I disorder, MALVIN ?? Brief treatment Summary: Patient on lithium, bupropion, fluoxetine, and zolipidem at time of assumption of care. [place] titrated up once to achieve better symptom control before continuing with fluoxetine titration (patient had previously had manic activation with fluoxetine). Fluoxetine ultimately titrated up to 40 mg. Bupropion discontinued as patient did not feel it was helpful. Ultimately did not see depressive symptom improvement with fluoxetine, so discontinued and started lurasidone. Lurasidone titrated to 60 mg daily with partial resolution of depressive symptoms. Continued lithium and zolpidem without adjustment. Patient also was able to establish ongoing care with therapist. Current Medications: Current Outpatient Prescriptions Medication Sig Dispense Refill ??? lurasidone 60 mg Tablet Take 1 tablet by mouth daily. 30 tablet 2 ??? zolpidem (AMBIEN) 5 mg Tablet [...] No current facility-administered medications for this visit. Allergies: Allergies as of 05/12/2017 ??? (No Known Allergies) Hospitalizations/Acute events during course of treatment: none ?? Prior medication trials and notable responses/adverse effects: Past medication trials: Citalopram Venlafaxine Fluoxetine Bupropion Risperidone [place] (current at 600 mg and 900 mg daily) Oxcarbazepine Clonazepam Lorazepam Zolpidem (current at 5 mg nightly PRN insomnia) Eszopiclone Lurasidone (current at 60 mg daily) Brief formulation/assessment of patient: 52 year old female with bipolar I disorder, most recent episode depressed, in partial remission and historically diagnosed MALVIN. Patient's last manic episode was prior to her move into this documentation writer's clinic, and was believed to be triggered by addition and titration of SSRI medication. Patient has remained relatively stable on lithium (most recent lithium level in February 2017 was 0.82) but has had difficult to manage depression for much of the time she has been in this clinic. Patient has chronic baseline suicidal ideations (without plan/intent, and has never engaged in suicidal behavior). During thiscourse of treatment saw little improvement with careful use of SSRI, but did see significant improvement with addition of lurasidone to lithium/zolpidem regimen. Patient does report possible akithisia with lurasidone, but feels the benefits of improved mood outweigh possible side effects. If akithisiacontinues or worsens, may consider a trial of propranolol or benztropine. Brief treatment plan: [place] 600 mg QAM, 900 mg Q PM Zolpidem 5 mg QHS PRN insomnia Lurasidone 60 mg daily (can continue to titrate as tolerated) ?? Name of new provider: Laura Villalobos MD documented in this encounter Plan of Treatment Upcoming Encounters Date Type Specialty Care Team Description 06/30/2022 TH Visit (TeleHealth) Psychiatry Ashtyn Joseph, [facility] [address] [place], [place] [address] (Wo rk) documented as of this encounter Visit Diagnoses Not on filedocumented in this encounter Care Teams House Steward/Stewardess Relationship Specialty Start Date End Date None PCP - General 05/11/17 06/15/18 None documented as of this encounter
--- OUTSIDE RECORDS SUMMARY | 2022-05-26 22:01 | XMS_ITS | Encounter Summary ---
:1965 Author Organization [facility] [place] [address] Care Team Providers Name Role Phone Marlin Miramontes APRN Primary Care Provider Reason for Visit Reason Comments Medication Refill Encounter Details Date Type Department Care Team Description 12/16/2016 Refill Psychiatry and Behavioral Fidel Perez MD [facility] at [facility] [place] [address] [place], [place] [id number] [phone] (Wo rk) Social History Tobacco Use Types [...] Ashtyn Joseph APRN [facility] PSYCHIATRY [place], [place] [address] (Wo rk) documented as of this encounter Visit Diagnoses Not on filedocumented in this encounter Care Teams Cue Selector Relationship Specialty Start Date End Date Marlin Miramontes APRN PCP - General 06/14/13 01/25/17 documented as of this encounter
--- OUTSIDE RECORDS SUMMARY | 2022-05-26 22:01 | XMS_ITS | Encounter Summary ---
:1965 Author Organization [facility] [place] [address] Care Team Providers Name Role Phone Kulwinder Marlin Chamorro APRN Primary Care Provider Encounter Details Date Type Department Care Team Description 10/29/2015 Office Visit Psychiatry and Austin Wolfe, Encounter for long-term (current) drug use; Behavioral Health at Bipolar 1 disorder, depressed, partial r emission [facility] [address] PSYCHIATRY [place] [phone] Social History Tobacco Use Types Packs/Day Years Used Date Never Smoker Alcohol Use Standard Drinks/Week Comments No 0 (1 standard drink = 0.6 oz pure alcoho l) Sex Assigned at Date Recorded Female 02/11/2021 8:25 PM EDT documented as of this encounter Last Filed Vital Signs Vital Sign Reading Time Taken Comments Blood Pressure 120/57 10/29/2015 1:18 PM EST Pulse 62 10/29/2015 1:18 PM EST Temperature - - Respiratory Rate - - Oxygen Saturation - - Inhaled Oxygen Concentration - - Weight 69.4 kg (153 lb) 10/29/2015 1:18 PM EST Height 167.6 cm (5' 6) 10/29/2015 1:18 PM EST Body Mass Index 24.69 10/29/2015 1:18 PM EST documented in this encounter Progress Notes Zhanna Lorenzo MD - 10/30/2015 2:11 PM EST PSYCHIATRY TEACHING PHYSICIAN INVOLVEMENT Location: Office Attending [...] with them as documented. Major issues addressed/discussed: This patient continues to experience depressed mood in the contextof a bipolar illness. Her persistent request has been for an increase in fluoxetine, a medication that has induced manic symptoms. Notably, she has been successful in limiting her alcohol intake to onedrink at [employer] since we last saw her, an achievement that we celebrated with her. Following areview of her early warning symptoms of diana and a discussion about getting select family members involved in watching for them, we agreed to increase fluoxetine to 30 mg daily, contingent on checkinganother lithium level. Target is to get above 0.7 to achieve adequate protection against a mood shift. She also reported decreasing the dose of zolpidem to 5 mg without any adverse impact on her sleep,a step we had discussed and supported. Additional comments: none. Austin Burch MD - 10/29/2015 10:51 AM EST ESTABLISHED ADULT PATIENT OFFICE VISIT NOTE Time Spent: 30 min Attendee(s): pt This patient was seen with Dr. Zhanna Lorenzo. See her note for confirmatory and/or revisionary documentation. HISTORY Chief Complaint: Shireen Silva is a 50 y.o. Female presents today for medication management HPI: () Patient reports that things are about the same since her last appointment. She continues to endorse depressive symptoms, with prominent amotivation. She denies any symptoms concerning for diana as well, and states she has been compliant with her lithium regimen. She states she has been able to reduce her EtOH intake to almost none (did have a glass of wine on gi). Otherwise she states shehas not had any in the past 3 weeks. She also notes that she ran out of Ambien and had some significant withdrawal effects (but was better by Thanksgiving time). She reports feeling 'flu-y and sick. Since getting her refill, she has been taking 5 mg, and states she has never found 10 mg to work better than 5. She continues to express chronic SI, no active plan/intent Quality: the same Severity: mod Duration: chronic Timing: daily Context: holidays (it's hard), reducing EtOH intake Modifying factors: feels less guilty because of not drinking now Associated S&S: low mood, amotivation Most recent PHQ9: PHQ9 10/25/2015 Little interest or pleasure Nearly every day Down, depressed, hopeless Nearly every day Trouble sleeping Several days Tired or no energy More than half the days Poor appetite or overeating Several days Feeling like a failure More than half the days Trouble concentrating (newspaper) Not at all Moving or speaking slowly Not at all Would be better off Several days PHQ9 Scores 13 (Moderate Depression) Current Medications: Current Outpatient Prescriptions Medication [...] mouth every morning. 30 tablet 5 ??? fexofenadine (OVIDIO) 60 mg tablet Take 60 mg by mouth daily. Indications: Seasonal Allergic Rhinitis ??? cetirizine (ZYRTEC) 10 mg tablet Take 10 mg by mouth daily. Indications: Seasonal Allergic Rhinitis ??? FLUoxetine (PROZAC) 10 mg Capsule Take 1 capsule by mouth daily. Take with 20 mg capsule for total dose of 30 mg 30 capsule 12 ??? LORazepam (ATIVAN) 0.5 mg Tablet Take 1 tablet by mouth every 6 hours as needed (panic attacks).7 tablet 3 ??? UNABLE TO FIND Med Name: [email or web address] Body protein shakes. Per website, each contains [...] Quinoa, Amaranth, Pea, Acai, Acerola siegel, Michael Grant Stout, Coconut flower nectar, Pomegranate, Blueberry, Ramya [...] Medication Side Effects: denies Review of Systems: (12/01/09) Constitutional: Eyes: ENT: Cardiovascular: Respiratory: GI: denies nausea/vomiting : Musculoskeletal: Integumentary: Neurological: Psychiatric: See HPI above Endocrine: Hematologic/Lymphatic: Allergic/Immunological: See reviewed allergies PFSH: () Past Medical/Psychiatric History: no interval change Family Psychiatric and Medical History: no interval change Social History: no interval change. Continues to live at home with and 2 children. EXAM [05/08/14 bullets (incl VS)] Constitutional System ? Vital Signs: Blood pressure 120/57, pulse 62, height 167.6 cm (5' 6), weight 69.4 kg (153 lb). Musculoskeletal System ? Muscle Strength/Tone (note atrophy, abnormal movements): no abnormalities noted ? Gait and Station: WNL Psychiatric System ? General Appearance/Behavior: female patient, appropriately groomed/dressed, interactive/cooperative with appropriate eye contact. ? Speech: normal volume/rate/prosody ? Thought Process: linear/coherent and goal-oriented ? Associations: tight ? Abnormal Thoughts and Perceptions / Thought Content: Homicidality / Violent Thoughts: none reported/elicited Suicidality: chronic, without plan/intent Hallucinations: none reported/elicited Delusions: none reported/elicited Obsessions: none reported/elicited ? Judgment and Insight: fair ? Mood & Affect: depressed, the same/affect is anxious ? Orientation: x 4 ? Attention/Concentration: alert/attentive without need for redirection ? Memory: grossly intact to recent/remote events ? Language: fluent ? Fund of Knowledge: average Psychotherapeutic Interventions and Response: n/a MEDICAL DECISION MAKING ASSESSMENT: Shireen Silva is a 50 y.o. Female with bipolar disorder, current episode depressed. Hersymptoms are unchanged. She states she is not comfortable with the idea of therapy right now, but continued to encourage her to think about this as an option to help with depressed mood. She has had success by her report in reducing her EtOH intake, which is likely to have positive effects on mood stability. She also has gone through a significant withdrawal from zolpidem, but feels that she is unable to go without it completely. We reviewed the option to take 2.5 mg (rather than 5mg), and to skipdays (e.g using it for 2 out of every 3 days). She is agreeable to try these options. We reviewed her history of manic symptoms with use of fluoxetine (starting at 30 mg). She agrees to keep early warning signs in her mind and include her family to assist her. We also reviewed the necessity of continued lithium therapy in order to further titrate the fluoxetine. Patient continues with chronic SI, no acute plan/intent. No acute safety concerns identified at today's visit. PLAN: Continue current medications with the following adjustment Increase fluoxetine to 30 mg daily Zolpidem re-written as 2.5-5 mg nightly PRN (patient will be ordered 5 mg tablets instead of 10mg) Patient agrees that if early warning symptoms of diana appear she will reduce fluoxetine to 20 mg and contact the clinic Encouraged patient to continue thinking about therapy RTC in 6-8 weeks Patient Instruction/Education provided: Patient provided written and verbal instructions regarding treatment plan. Patient understands the plan? Yes documented in this encounter Plan of Treatment Upcoming Encounters Date Type Specialty Care Team Description 06/30/2022 TH Visit (TeleHealth) Psychiatry Ashtyn Joseph APRN [facility] PSYCHIATRY [place] [id number] (Wo rk) documented as of this encounter Procedures Procedure Name Priority Date/Time Associated Diagnosis Comme nts LITHIUM LEVEL Routine 10/29/2015 11:27 AM Encounter for Result s for this EST long-term (current) procedur e are in the drug use results section . documented in this encounter Results [place] level (10/29/2015 11:27 AM EST) athologist Signature [place] Lvl 0.58 mmol/L CERNER MILLENNIUM Comment: Therapeutic level for bipolar depression : [...] Location / / Volume Laterality Blood specimen 10/29/2015 11:27 5 (specimen) AM EST 11:42 AM EST Resulting Agency Comment Spec In Lab Zhanna Lorenzo MD CHEMISTRY ORDERABLES Performing Organization Address City/State/[place] [address] [facility] documented in this encounter Visit Diagnoses Diagnosis Encounter for long-term (current) drug u se Encounter for long-term (current) use of other medications Bipolar 1 disorder, depressed, partial r emission Bipolar I disorder, most recent episode (or current) depressed, in partial or unspecified remission documented in this encounter Care Teams Trolley Wire Installer Relationship Specialty Start Date End Date Marlin Miramontes APRN PCP - General 06/14/13 01/25/17 documented as of this encounter
--- OUTSIDE RECORDS SUMMARY | 2022-05-26 22:01 | XMS_ITS | Encounter Summary ---
:1965 Author Organization [facility] [place] [address] Care Team Providers Name Role Phone Marlin Miramontes Ashtyn CLAY Primary Care Provider Reason for Visit Reason Onset Date Comments Medication Refill 02/20/2016 Encounter Details Date Type Department Care Team Description 02/20/2016 Refill Psychiatry and Behavioral Dinesh Shields MD [facility] [place] [address] [place] [address] [phone] (Wo rk) Social History Tobacco Use Types Packs/Day Years Used Date Never Smoker Alcohol Use Standard Drinks/Week Comments No 0 (1 standard drink = 0.6 oz pure alcoho l) Sex Assigned at Date Recorded Female 02/11/2021 8:25 PM EDT documented as of this encounter Miscellaneous Notes Telephone Encounter - Dinesh Shields MD - 02/20/2016 12:08 PM EDT From: Shireen Ricardo To: Dinesh Shields MD Sent: 02/20/2016 10:54 AM EDT Subject: Medication Renewal Request Original authorizing provider: DINESH SHIELDS MD Shireen Silva would like a refill of the following medications: zolpidem (AMBIEN) 5 mg Tablet [DINESH SHIELDS MD] FLUoxetine (PROZAC) 20 mg Tablet [DINESH SHIELDS MD] Preferred pharmacy: [id number] - [place], [place] - [address] [place] [address] Comment: documented in this encounter Plan of Treatment Upcoming Encounters Date Type Specialty Care Team Description 06/30/2022 TH Visit (TeleHealth) Psychiatry Ashtyn Joseph APRN [facility] PSYCHIATRY [place], [place] [address] (Wo rk) documented as of this encounter Visit Diagnoses Not on filedocumented in this encounter Care Teams Fish Hatchery Inspector Relationship Specialty Start Date End Date Marlin Miramontes APRN PCP - General 06/14/13 01/25/17 documented as of this encounter
--- OUTSIDE RECORDS SUMMARY | 2022-05-26 22:01 | XMS_ITS | Encounter Summary ---
:1965 Author Organization [facility] [place] [address] Care Team Providers Name Role Phone Marlin Miramontes Ashtyn CLAY Primary Care Provider Reason for Visit Reason Onset Date Comments Medication Refill 08/07/2016 Encounter Details Date Type Department Care Team Description 08/07/2016 Refill Psychiatry and Behavioral Dinesh Shields MD [facility] [place] [address] [place] [address] [phone] (Wo rk) Social History Tobacco Use Types Packs/Day Years Used Date Never Smoker Alcohol Use Standard Drinks/Week Comments No 0 (1 standard drink = 0.6 oz pure alcoho l) Sex Assigned at Date Recorded Female 02/11/2021 8:25 PM EDT documented as of this encounter Miscellaneous Notes Telephone Encounter - Dinesh Shields MD - 08/07/2016 10:47 AM EDT From: Shireen Ricardo To: Dinesh Shields MD Sent: 08/07/2016 6:39 AM EDT Subject: Medication Renewal Request Original authorizing provider: DINESH SHIELDS MD Shireen Silva would like a refill of the following medications: zolpidem (AMBIEN) 5 mg Tablet [DINESH SHIELDS MD] FLUoxetine (PROZAC) 40 mg Capsule [DINESH SHIELDS MD] Preferred pharmacy: [facility] - [place], [place] - [address] [place] [address] Comment: documented in this encounter Plan of Treatment Upcoming Encounters Date Type Specialty Care Team Description 06/30/2022 TH Visit (TeleHealth) Psychiatry Ashtyn Joseph APRN [facility] PSYCHIATRY [place], [place] [address] (Wo rk) documented as of this encounter Visit Diagnoses Not on filedocumented in this encounter Care Teams Emergency Management System Director Relationship Specialty Start Date End Date Marlin Miramontes APRN PCP - General 06/14/13 01/25/17 documented as of this encounter
--- OUTSIDE RECORDS SUMMARY | 2022-05-26 22:01 | XMS_ITS | Encounter Summary ---
:1965 Author Organization [facility] [place] [address] Care Team Providers Name Role Phone Marlin Miramontes DANNA Primary Care Provider Reason for Visit Reason Onset Date Comments Medication Refill 12/26/2016 Encounter Details Date Type Department Care Team Description 12/26/2016 Refill Psychiatry and Behavioral Dinesh Shields MD [facility] Yg baez [place] [address] [place] [address] [phone] (Wo rk) Social History Tobacco Use Types Packs/Day Years Used Date Never Smoker Alcohol Use Standard Drinks/Week Comments No 0 (1 standard drink = 0.6 oz pure alcoho l) Sex Assigned at Date Recorded Female 02/11/2021 8:25 PM EDT documented as of this encounter Miscellaneous Notes Telephone Encounter - Dinesh Shields MD - 12/26/2016 2:11 PM EST From: Shireen Ricardo To: Dinesh Shields MD Sent: 12/26/2016 1:33 PM EST Subject: Medication Renewal Request Original authorizing provider: DINESH SHIELDS MD Shireen Silva would like a refill of the following medications: zolpidem (AMBIEN) 5 mg Tablet [DINESH SHIELDS MD] Preferred pharmacy: [id number] Comment: documented in this encounter Plan of Treatment Upcoming Encounters Date Type Specialty Care Team Description 06/30/2022 TH Visit (TeleHealth) Psychiatry Ashtyn Joseph APRN [facility] PSYCHIATRY [place], [place] [address] (Wo rk) documented as of this encounter Visit Diagnoses Not on filedocumented in this encounter Care Teams Flight Attendant/Inflight Supervisor Relationship Specialty Start Date End Date Marlin Miramontes APRN PCP - General 06/14/13 01/25/17 documented as of this encounter
--- OUTSIDE RECORDS SUMMARY | 2022-05-26 22:01 | XMS_ITS | Encounter Summary ---
:1965 Author Organization [facility] [place] [address] Care Team Providers Name Role Phone Marlin Miramontes DANNA Primary Care Provider Encounter Details Date Type Department Care Team Description 07/28/2016 Office Visit Psychiatry and Austin Wolfe, Pooja montes, in Behavioral Health at partial remission, [facility] most recent episode [facility] adelfo Salazar PSYCHIATRY [place] [phone] Social History Tobacco Use Types Packs/Day Years Used Date Never Smoker Alcohol Use Standard Drinks/Week Comments No 0 (1 standard drink = 0.6 oz pure alcoho l) Sex Assigned at Date Recorded Female 02/11/2021 8:25 PM EDT documented as of this encounter Last Filed Vital Signs Vital Sign Reading Time Taken Comments Blood Pressure 117/49 07/28/2016 1:33 PM EDT Pulse 67 07/28/2016 1:33 PM EDT Temperature - - Respiratory Rate - - Oxygen Saturation - - Inhaled Oxygen Concentration - - Weight 73.5 kg (162 lb) 07/28/2016 1:33 PM EDT Height 167.6 cm (5' 6) 07/28/2016 1:33 PM EDT Body Mass Index 26.15 07/28/2016 1:33 PM EDT documented in this encounter Progress Notes Austin Wolfe MD - 07/28/2016 1:30 PM EDT ESTABLISHED ADULT PATIENT OFFICE VISIT NOTE Time Spent: 30 min Attendee(s): pt This patient was seen with Dr. Demetrius Deng See her note for confirmatory and/or revisionary documentation. HISTORY Chief Complaint: Shireen Silva is a 51 y.o. Female presents today for medication management/follow u HPI: () Patient now on 40 mg of fluoxetine x approximately 6 weeks. She has had no noticeable change with the increase to 40 mg initially, but currently feels her mood is somewhat better overall now (also getting therapy). Feels this has been for the last week or so. She feels she is more motivated, accomplishing more. Still feels depressed but more active. Feels her focus has improved. Decided to scrape the paint off the side of the house earlier this summer, but has been more actively working toward it.Feels more hopeful about things. Still having some difficulty with sleep, finds it difficult to fallasleep at night and hard to get up when she needs to in the AM. States because her family is either s leeping or working in the evenings she likes to stay up for personal time, makes it hard to get to sleep. Does feel she is sleeping a bit less because of the early AM wake up call. Ran out of bupropion approximately 2 weeks ago. States she ran out on a weekend and by the time it came to request a refill she was off x 4 days. No withdrawal effects. Doesn't feel her mood has worsened off the medication. Most recent PHQ9: PHQ9 07/26/2016 Little interest or pleasure Several days Down, [...] as needed for Sleep. 30 tablet0 ??? LORazepam (ATIVAN) 0.5 mg Tablet Take 1 tablet by mouth every 6 hours as needed (panic attacks).21 tablet 3 ??? OLANZapine (ZYPREXA) 2.5 mg Tablet Take 1 tablet by mouth nightly as needed (diana). 5 tablet 0 ??? FLUoxetine (PROZAC) 40 mg Capsule Take 1 capsule by mouth daily. 30 capsule 1 ??? lithium (LITHOBID) 300 mg Tablet Sustained Release Take 2-3 tablets by mouth 2 times daily. Take2 tablets in the morning, and 3 tablets at night 150 tablet 3 ??? cetirizine (ZYRTEC) 10 mg tablet Take 10 mg by mouth daily. Indications: Seasonal Allergic Rhinitis ??? pseudoephedrine (SUDAFED) 30 mg tablet Take 30 mg by mouth every 4 hours as needed. ??? calcium carbonate (TUMS) 200 mg calcium (500 mg) chewable tablet Take 1 tablet by mouth daily asneeded. ??? multivitamin (THERAGRAN) tablet Take 1 tablet by mouth daily. ??? FLUoxetine (PROZAC) 20 mg Tablet Take 1 tablet by mouth daily. Take with 10 mg capsule for totaldose of 30 mg (Patient not taking: Reported on 07/28/2016) 30 tablet 1 ??? UNABLE TO FIND Med Name: [facility] Body protein shakes. Per website, each contains [...] nectar, Pomegranate, Blueberry, Ramya hips, Apple pectin. No current facility-administered medications for this visit. Pertinent Medication Side Effects: denies Review of Systems: (12/01/09) Constitutional: no unexpected weight changes Eyes: ENT: Cardiovascular: Respiratory: GI: no N/V : Musculoskeletal: Integumentary: Neurological: Psychiatric: See HPI above Endocrine: Hematologic/Lymphatic: Allergic/Immunological: See reviewed allergies PFSH: (0) Past Medical/Psychiatric History: Started with her new therapist (Yang Vee). Feels this is going good, going weekly. Acceptance/commitment therapy, has homework/workbook. Family Psychiatric and Medical History: no interval change. 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 Kids are started back at school. Endorses continued EtOH use (not every night, but does occasionally drinks up to 2 glasses of wine a night). EXAM [05/08/14 bullets (incl VS)] Constitutional System ? Vital Signs: Blood pressure 117/49, pulse 67, height 167.6 cm (5' 6), weight 73.5 kg (162 lb). Musculoskeletal System ? Muscle Strength/Tone (note atrophy, abnormal movements): no abnormalities noted ? Gait and Station: WNL Psychiatric System ? General Appearance/Behavior: female patient, appropriately groomed/dressed, interactive/cooperative with assessment. Maintains appropriate eye contact throughout ? Speech: normal volume/rate/prosody ? Thought Process: linear/coherent and goal-directed ? Associations: tight ? Abnormal Thoughts and Perceptions / Thought Content: Homicidality / Violent Thoughts: none reported/elicited Suicidality: chronic baseline SI, no plan/intent. Hallucinations: none reported/elicited Delusions: none reported/elicited Obsessions: none reported/elicited ? Judgment and Insight: fair ? Mood & Affect: depressed, but more hopeful ? Orientation: x 3 ? Attention/Concentration: alert/attentive and without need for redirection ? Memory: grossly intact to recent/remote events ? Language: fluent ? Fund of Knowledge: average Psychotherapeutic Interventions and Response: n/a MEDICAL DECISION MAKING ASSESSMENT: Shireen Silva is a 51 y.o. Female with BPAD, current episode depressed. Her symptoms are minimally improved. Patient has had some slight improvement in mood symptoms over the last few weeks with increase of fluoxetine to 40 mg and active engagement in therapy. No acute safety concerns were identified during this assessment. She does report an increase in goal-oriented activity (scraping the side of the house, but this was a project started months ago which she has only recently been able to make headway on), and less sleep (which she describes as difficult, she would like to sleep more but has to get up in the AM for her son's school). No clear evidence of developing diana at this point. We discussed staying on the current medication regimen for now, with a recheck of her lithium (TSH and BMP) in a few months). PLAN: Continue current medications without adjustment Will take bupropion off med list. Continue therapy RTC in 6-8 weeks Patient Instruction/Education provided: Patient provided verbal instructions regarding treatment plan. Patient understands the plan? Yes Demetrius Deng MD - 07/28/2016 1:30 PM EDT PSYCHIATRY TEACHING PHYSICIAN INVOLVEMENT Location: [facility], [address] Attending Physician: Demetrius Deng MD Resident [...] problematichas been depression for past several years. Stopped Wellbutrin after increasing Prozac to 40mg and prefers to be off wellbutrin. Mood starting to improve, also in the context of starting ACT therapy. No SI or HI. No substance abuse. No med changes today . DEMETRIUS DENG MD documented in this encounter Plan of Treatment Upcoming Encounters Date Type Specialty Care Team Description 06/30/2022 TH Visit (TeleHealth) Psychiatry Ashtyn Joseph, CLOTH COVERER [facility] [address] [place] [address] (Wo rk) documented as of this encounter Visit Diagnoses Diagnosis Bipolar disorder, in partial remission, most recent episode depressed Bipolar I disorder, most recent episode (or current) depressed, in partial or unspecified remission documented in this encounter Care Teams Stage Electrician Relationship Specialty Start Date End Date Marlin Miramontes APRN PCP - General 06/14/13 01/25/17 documented as of this encounter
--- OUTSIDE RECORDS SUMMARY | 2022-05-26 22:01 | XMS_ITS | Encounter Summary ---
:1965 Author Organization [facility] [place] [address] Care Team Providers Name Role Phone Marlin Miramontes PLACEMENT SECRETARY Primary Care Provider Reason for Visit Reason Onset Date Comments Medication Refill 11/18/2015 Encounter Details Date Type Department Care Team Description 11/19/2015 Refill Psychiatry and Noble Rodrigues M D Bipolar I disorder, most recent episode (or current) depressed, in partial or unspecified remission; Behavioral Health at [facility] B ipolar affective disorder, most recent episode unspecified type, remission status unspecified [facility] PS[place]IATRY [place] [id number] [place] [address] [phone] Social History Tobacco Use Types Packs/Day Years Used Date Never Smoker Alcohol Use Standard Drinks/Week Comments No 0 (1 standard drink = 0.6 oz pure alcoho l) Sex Assigned at Date Recorded Female 02/11/2021 8:25 PM EDT documented as of this encounter Miscellaneous Notes Telephone Encounter - Noble Rodrigues MD - 11/19/2015 7:43 AM EST From: Shireen Ricardo To: Dinesh Shields MD Sent: 11/18/2015 11:15 AM EST Subject: Medication Renewal Request Original authorizing provider: DINESH SHIELDS MD Shireen Ricardo would like a refill of the following medications: lithium (LITHOBID) 300 mg Tablet Sustained Release [DINESH SHIELDS MD] Preferred pharmacy: [id number] - [facility] [place] - [address] [place] [address] Comment: I also need the Wellbutrin refilled. Bupropion HCL XL 300mg. One tablet every morning. I am not outof these meds and have several days left of them (enough to get through the holiday). I noticed theyare getting low and I have no refills on them. Thank you! documented in this encounter Plan of Treatment Upcoming Encounters Date Type Specialty Care Team Description 06/30/2022 TH Visit (TeleHealth) Psychiatry Ashtyn Joseph APRN [facility] PSYCHIATRY [place], [place] [address] (Wo rk) documented as of this encounter Visit Diagnoses Diagnosis Bipolar I disorder, most recent episode (or current) depressed, in partial or unspecified remission Bipolar affective disorder, most recent episode unspecified type, remission status unspecified documented in this encounter Care Teams Director Advertising Relationship Specialty Start Date End Date Marlin Miramontes APRN PCP - General 06/14/13 01/25/17 documented as of this encounter
--- OUTSIDE RECORDS SUMMARY | 2022-05-26 22:01 | XMS_ITS | Encounter Summary ---
:1965 Author Organization [facility] [place] [address] Care Team Providers Name Role Phone Marlin Miramontes Ashtyn CLAY Primary Care Provider Encounter Details Date Type Department Care Team Description 09/22/2016 Office Visit Psychiatry and Austin Wolfe, Bipolar a ffective Behavioral [facility] at [facility], currently [facility] depressed, moderate [facility] DR Salazar PSYCHIATRY [place] [phone] Social History Tobacco Use Types Packs/Day Years Used Date Never Smoker Alcohol Use Standard Drinks/Week Comments No 0 (1 standard drink = 0.6 oz pure alcoho l) Sex Assigned at Date Recorded Female 02/11/2021 8:25 PM EDT documented as of this encounter Last Filed Vital Signs Vital Sign Reading Time Taken Comments Blood Pressure 112/69 09/22/2016 3:32 PM EDT Pulse 60 09/22/2016 3:32 PM EDT Temperature - - Respiratory Rate - - Oxygen Saturation - - Inhaled Oxygen Concentration - - Weight 76.2 kg (168 lb) 09/22/2016 3:32 PM EDT Height 167.6 cm (5' 6) 09/22/2016 3:32 PM EDT Body Mass Index 27.12 09/22/2016 3:32 PM EDT documented in this encounter Progress Notes Austin Wolfe MD - 09/22/2016 3:30 PM EDT ESTABLISHED ADULT PATIENT OFFICE VISIT NOTE Time Spent: 30 min Attendee(s): Pt This patient was seen with Dr. Thomas Deng See her note for confirmatory and/or revisionary documentation. HISTORY Chief Complaint: Shireen Silva is a 51 y.o. Female presents today for medication management/follow up HPI: () Patient reports things are not great overall, noting a lot of stress in her environment. She reports that her therapist feels her baseline is depressed but functional, but without much capacity to absorb stress. She reports feeling more anxious and depressed in response to what's been happening - primarily financial concerns. Still in the process of refinancing the house, which is a drawn-out process and causing more stress. Reports ongoing chronic SI, without plan/intent. However, she feels this might be worse. Sleep has been good, still using Ambien to assist in sleep. Denies any manic symptoms (no impulsivity, reckless behavior, decreased need for sleep). C/o low mood, fatigue, loss of interest. Ongoing anxiety symptoms, somatic (chest discomfort, tension). No missed doses or non-compliance with medication. EtOH - not every night - does report drinking 0.5-2 glasses at a time. Drinking 4-5 nights/week. Denies MJ/illicit drug use. Most recent PHQ9: PHQ9 09/19/2016 Little interest or pleasure Several days Down, depressed, hopeless More than half [...] TWO TABLETS BY MOUTH EVERY MORNING AND 3TABLETS AT NIGHT 150 tablet 3 ??? zolpidem (AMBIEN) 5 mg Tablet Take 0.5-1 tablets by mouth nightly as needed for Sleep. 30 tablet0 ??? FLUoxetine (PROZAC) 40 mg Capsule TAKE ONE CAPSULE BY MOUTH EVERY DAY 30 capsule 1 ??? LORazepam (ATIVAN) 0.5 mg Tablet Take 1 tablet by mouth every 6 hours as needed (panic attacks).21 tablet 3 ??? OLANZapine (ZYPREXA) 2.5 mg Tablet Take 1 tablet by mouth nightly as needed (diana). 5 tablet 0 ??? UNABLE TO FIND Med Name: Lainey [...] Pomegranate, Blueberry, Ramya hips, Apple pectin. ??? cetirizine (ZYRTEC) 10 mg tablet Take [...] for this visit. Pertinent Medication Side Effects: no adverse effects Review of Systems: (12/01/09) Constitutional: no recent cold/flu-like symptoms Eyes: ENT: Cardiovascular: recent chest discomfort, feels this is related to anxiety Respiratory: GI: : Musculoskeletal: Integumentary: Neurological: Psychiatric: See HPI above Endocrine: Hematologic/Lymphatic: Allergic/Immunological: See reviewed allergies PFSH: () Past Medical/Psychiatric History: still active with new therapist, seeing weekly. Family Psychiatric and Medical History: no interval change Social History: Very stressed about financial issues, refinancing home EXAM [05/08/14 bullets (incl VS)] Constitutional System ? Vital Signs: Blood pressure 112/69, pulse 60, height 167.6 cm (5' 6), weight 76.2 kg (168 lb). Musculoskeletal System ? Muscle Strength/Tone (note atrophy, abnormal movements): no abnormalities noted ? Gait and Station: WNL Psychiatric System ? General Appearance/Behavior: female patient, appropriately groomed/dressed, interactive/cooperative with assessment ? Speech: normal volume/rate/prosody ? Thought Process: linear/coherent and goal-oriented ? Associations: tight ? Abnormal Thoughts and Perceptions / Thought Content: Homicidality / Violent Thoughts: none reported/elicited Suicidality: ongoing baseline passive SI without plan/intent Hallucinations: none reported/elicited [...] current episode depressed. Hersymptoms are minimally worse. She reports a worsening of her mood and anxiety in the last few months, possibly triggered by ongoing financial concerns at home. She notes that she continues to have baseline SI, without plan or intent, and no acute safety concerns were uncovered during this assessment. Patient has been actively involved in therapy, which is helpful. We discussed the potential of increasing her medications, either lithium or fluoxetine. She is reluctant to increase lithium, but will need to ensure a therapeutic level before increasing SSRI given her previous activated response. She isagreeable to check labs and then will discuss options for medication changes. PLAN: Continue current medications without adjustment at this time May consider increase lithium by 300 mg or fluoxetine by 10 mg based on lithium level Labs: [place] level BMP TSH RTC in 6-8 weeks (will call patient to discuss lab results when they come in). Patient Instruction/Education provided: Patient provided written and verbal instructions regarding treatment plan. Patient understands the plan? Yes Demetrius Melgoza MD - 09/22/2016 3:30 PM EDT PSYCHIATRY TEACHING PHYSICIAN INVOLVEMENT Location: Adult [facility], [address] Attending Physician: Demetrius Deng MD Resident [...] problematichas been depression for past several years. Stable. No SI or HI. No substance abuse. DEMETRIUS DENG MD documented in this encounter Plan of Treatment Upcoming Encounters Date Type Specialty Care Team Description 06/30/2022 TH Visit (TeleHealth) Psychiatry Ashtyn Joseph APRN [facility] [address] [place] [place], [place] [address] (Wo rk) documented as of this encounter Visit Diagnoses Diagnosis Bipolar affective disorder, currently de pressed, moderate Bipolar I disorder, most recent episode (or current) depressed, moderate documented in this encounter Care Teams Counseling Program Leader Relationship Specialty Start Date End Date Marlin Miramontes APRN PCP - General 06/14/13 01/25/17 documented as of this encounter
--- OUTSIDE RECORDS SUMMARY | 2022-05-26 22:01 | XMS_ITS | Encounter Summary ---
:1965 Author Organization [facility] [place] [address] Care Team Providers Name Role Phone Unknown Primary Care Provider Unavailable Reason for Visit Reason Comments Medication Refill Encounter Details Date Type Department Care Team Description 04/19/2017 Refill Psychiatry and Behavioral IleAustin villatoro MD [facility] Y[place] [address] [place] [address] [phone] (Wo rk) Social History Tobacco Use Types Packs/Day Years Used Date Never Smoker Alcohol Use Standard Drinks/Week Comments No 0 (1 standard drink = 0.6 oz pure alcoho l) Sex Assigned at Date Recorded Female 02/11/2021 8:25 PM EDT documented as of this encounter Plan of Treatment Upcoming Encounters Date Type Specialty Care Team Description 06/30/2022 TH Visit (TeleHealth) Psychiatry Ashtyn Joseph, BUSINESS PARTNER [facility] ER [address] [place], [place] [address] (Wo rk) documented as of this encounter Visit Diagnoses Not on filedocumented in this encounter Care Teams Vocational Rehabilitation Supervisor Relationship Specialty Start Date End Date Unknown PCP - General 01/26/17 05/10/17 None documented as of this encounter
--- OUTSIDE RECORDS SUMMARY | 2022-05-26 22:01 | XMS_ITS | Encounter Summary ---
:1965 Author Organization [facility] [place] [address] Care Team Providers Name Role Phone Virginie Gudino APRN Primary Care Provider Reason for Visit Reason Comments Medication Refill Encounter Details Date Type Department Care Team Description 06/14/2016 Refill Psychiatry and Behavioral IlerAustin MD [facility] at [facility] Yg [place] [address] [place] [address] [phone] (Wo rk) Social History Tobacco Use Types [...] Visit (TeleHealth) Psychiatry Ashtyn Joseph APRN [facility] ER PSYCHIATRY [place], [place] [address] (Wo rk) documented as of this encounter Visit Diagnoses Not on filedocumented in this encounter Care Teams Sewage Plant Attendant Relationship Specialty Start Date End Date Virginie Gudino APRN PCP - General Family Medicine 06/16/18 [address] [place] [address] documented as of this encounter
--- OUTSIDE RECORDS SUMMARY | 2022-05-26 22:01 | XMS_ITS | Encounter Summary ---
:1965 Author Organization [facility] [place] [address] Care Team Providers Name Role Phone Unknown Primary Care Provider Unavailable Reason for Visit Reason Onset Date Comments Medication Refill 01/26/2017 Encounter Details Date Type Department Care Team Description 01/26/2017 Refill Psychiatry and Behavioral Dinesh Shields MD [facility] at [facility] Yg [place] [address] [place] [address] [phone] (Wo rk) Social History Tobacco Use Types Packs/Day Years Used Date Never Smoker Alcohol Use Standard Drinks/Week Comments No 0 (1 standard drink = 0.6 oz pure alcoho l) Sex Assigned at Date Recorded Female 02/11/2021 8:25 PM EDT documented as of this encounter Miscellaneous Notes Telephone Encounter - Dinesh Shields MD - 01/26/2017 3:16 PM EST From: Shireen Silva To: Dinesh Shields MD Sent: 01/26/2017 2:57 PM EST Subject: Medication Renewal Request Original authorizing provider: DINESH SHIELDS MD Shireen Silva would like a refill of the following medications: zolpidem (AMBIEN) 5 mg Tablet [DINESH SHIELDS MD] Preferred pharmacy: [facility] [id number] Comment: documented in this encounter Plan of Treatment Upcoming Encounters Date Type Specialty Care Team Description 06/30/2022 TH Visit (TeleHealth) Psychiatry Ashtyn Joseph, FAN BALANCER [facility] ER PSYCHIATRY [place], [place] [address] (Wo rk) documented as of this encounter Visit Diagnoses Not on filedocumented in this encounter Care Teams General Office Associate Relationship Specialty Start Date End Date Unknown PCP - General 01/26/17 05/10/17 None documented as of this encounter
--- OUTSIDE RECORDS SUMMARY | 2022-05-26 22:01 | XMS_ITS | Encounter Summary ---
:1965 Author Organization [facility] [place] [address] Care Team Providers Name Role Phone Marlin Miramontes APRN Primary Care Provider Reason for Visit Reason Comments Medication Refill Encounter Details Date Type Department Care Team Description 08/13/2016 Refill Psychiatry and Behavioral IlerAustin MD [facility] at [facility] [place] [address] [place], [place] [id number] [phone] (Wo rk) Social History Tobacco Use Types [...] Ashtyn Joseph APRN [facility] ER PSYCHIATRY [place], [place] [address] (Wo rk) documented as of this encounter Visit Diagnoses Not on filedocumented in this encounter Care Teams Communications Director Relationship Specialty Start Date End Date Marlin Miramontes APRN PCP - General 06/14/13 01/25/17 documented as of this encounter
--- OUTSIDE RECORDS SUMMARY | 2022-05-26 22:02 | XMS_ITS | Encounter Summary ---
:1965 Author Organization [facility] [place] [address] Care Team Providers Name Role Phone Ayana Lai MD Primary Care Provider Reason for Visit Reason Comments Bipolar Disorder Encounter Details Date Type Department Care Team Description 07/16/2011 Office Visit Psychiatry and Felecia Farias MD Bipolar affective Behavioral Health at [facility] kwaku montes (Primary Dx) [facility] [place] [address] [place], [place] [phone] [address] (Work) [phone] Social History Tobacco Use Types Packs/Day Years Used Date Never Smoker Alcohol Use Standard Drinks/Week Comments No 0 (1 standard drink = 0.6 oz pure alcoho l) Sex Assigned at Date Recorded Female 02/11/2021 8:25 PM EDT documented as of this encounter Progress Notes Amari Bob MD - 07/22/2011 5:52 PM EDT GERIATRIC PSYCHIATRY ATTENDING: I saw and evaluated the patient with the resident after his or her interview, and our subsequent discussion of the case. Covering for Dr. Crawford. I reviewed the patient???s history during the visit and I agree with the details as written by the resident. My exam confirms the resident???s findings. The assessment and plan were formulated in discussion with me and I agree with them as documented. Felecia Farias MD - 07/17/2011 5:54 PM EDT NEW DIAGNOSTIC EVALUATION Time Spent: 60 minutes Additional Attendee(s) (identify by relationship to pt.): None Information source: Patient. Chief Complaint: Chief Complaint Patient presents with ??? Bipolar Disorder History of Presenting Illness (location, quality, severity, duration, timing, context, modifying factors, and associated signs & symptoms): Ms. Silva is a 46 y/o F with PPHx significant for BPaD who presents for medication management. Car assuming the care of this patient from Dr. Morocho. Briefly, Ms. Silva recounts two manic episodes, once in that lasted 2-3 months, and in 2004 that lasted 1 month, that were followed by short periods of depression. Patient did not require hospitalization during her manic episodes. She describes decreased need for sleep, increased activity, and reckless behavior such as excessive spending while manic. Patient reports that she has been fairly stable on lithium (started 5-6 years ago) andwellbutrin (started 3 years ago). Today, Ms. Silva expressed worry secondary to financial and family stressors. She specifically described getting overwhelmed very easily from these stressors and feeling that she is unsupported by her family. She denies any neurovegetative symptoms of depression but did report that she superficially cut herself one month ago and had thoughts recently of I wonder what they would do without me.She denied any active SI or plan. Patient reports that she has used writing in her journal and yoga to good effect as methods to cope with her stress. No manic, psychotic, PTSD, or OCD symptoms elicited. No substance abuse or medical complaints. Past Psychiatric History and Treatment (e.g., past OP care, hospitalizations, suicide attempts): ?? Prior diagnosis: Bipolar disorder, MALVIN, Cluster B traits ?? No prior psychiatric hospitalizations or suicide attempts. ?? Prior med trials: Celexa, Effexor, Prozac (led to manic episode), Lamictal, Trileptal (dizziness), Risperdal (drug rash), Klonopin ?? Therapist: Harleen Zuleta in [facility] every three weeks Past Substance Abuse History: None Past Medical History: Bipolar disorder Benign thyroid cyst Current Medications: Outpatient prescriptions marked as taking for the 07/16/11 encounter (Office Visit) with MONTSERRAT FELECIA Rosendo Medication Sig Dispense Refill ??? buPROPion (WELLBUTRIN XL) 150 mg 24 hr tablet Take 3 tablets by mouth every morning. 90 tablet 2 ??? lithium (LITHOBID) 300 mg CR tablet Take 3 tablets by mouth 2 times daily. 180 tablet 2 ??? zolpidem (AMBIEN) 10 mg tablet Take 1 tablet by mouth nightly. 30 tablet 1 ??? oxazepam (SERAX) 15 mg capsule 15 MG = 1 Capsule(s), PO, Three times daily PRN ??? multivitamin (THERAGRAN) tablet Allergies: Allergies as of 07/16/2011 ??? (No Known Allergies) Family Psychiatric History: Brother with alcohol dependence and possible bipolar disorder. Paternal grandmother, with unknown diagnosis, psychiatrically hospitalized. Paternal uncle and cousins with unknown diagnoses who have attempted suicide. Social and Developmental History (marital history, current employment, occupational history, level of education, sexual history, trauma history, other relevant social information): Born in [place], [place] and has one older brother and two older sisters. 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 Currently, lives in [place], [place] with her and three sons (ages 11, 18, and 19). The youngest son receives psychiatric care at [facility] for behavioral issues. No history of abuse or legal issues. PSYCHIATRIC / MENTAL STATUS EXAMINATION General Appearance/Behavior: 46 y/o F who appears stated age, no PMR or PMA, neatly groomed, pleasant and cooperative, good eye contact Speech is WNL. Mood: Happy. Affect: slightly dysphoric Thought process is Linear Logical. Associations are Intact.. Thought Content includes: Passive SI with no intent or plan. No HI. No AVH or delusions. Judgment and Insight is Good.. Oriented to: person, place, time and situation Attention/Concentration: Alert Memory (remote and recent): Grossly intact Language (naming, repeating): No difficulty naming or repeating. Fund of Knowledge (current events, history, vocabulary): Appropriate to level of education ASSESSMENT: Ms. Silva is a 46 y/o F with PPHx significant for bipolar disorder who presents for medication management with moderate depressive symptoms in the setting of multiple psychosocial stressors. Do feel that patient would benefit briefly with more intensive individual psychotherapy, specifically supportive therapy and CBT. Will not adjust medications at this time but will follow-up with routine labs while on lithium. DIAGNOSIS: Joy I: Bipolar, Depressed, Moderate Joy II: Deferred Joy III: Benign thyroid cyst Joy IV: Problems with primary support group and Economic problems Joy V: Current GAF: 51-60 moderate symptoms Highest GAF (past year): Unknown TREATMENT GOALS and PLAN: ?? Continue current medications. Will call [employer] in [place], [place] regarding prescription that ends in two weeks. ?? Follow-up [place] level, thyroid panel, and CMP ordered for Thursday07/18/11. ?? Patient encouraged to see therapist every two weeks for CBT. documented in this encounter Plan of Treatment Upcoming Encounters Date Type Specialty Care Team Description 06/30/2022 TH Visit (TeleHealth) Psychiatry Ashtyn Joseph, DANNA [facility] ER [address] [place], [place] [address] (Wo rk) documented as of this encounter Results [place] level (07/18/2011 9:45 AM EDT) P athologist Signature [place] Lvl 0.60 mmol/L [facility] Comment: Therapeutic level for bipolar depression : 0.60-1.20 mmol/L Action Level: ?? Acute toxicity: ?>4.00 mmol/L ?? Chronic toxicity: ??>1.50 mmol/L Values greater than or equal to the acti on level necessitate clinical intervention. ??Values less than this le raeann may necessitate intervention based on clinical condition of the patient. Ref: ??Gerald walton Toxicologic Emergencies 6th ed 1997; p . 967 Specimen Anatomical Collection Method Collection Time Receive d Time (Source) Location / / Volume Laterality Blood specimen 07/18/2011 9:45 AM 011 9:54 (specimen) EDT AM EDT Amari Bob MD CHEMISTRY ORDERABLES Performing Organization Address City/State/ZIP [place] [address] CERNER MILLENNIUM (ABNORMAL) Basic metabolic panel (07/18/2011 9:45 AM EDT) P athologist Signature Glucose Lvl 100 60 - 199 CERNER mg/dL MILLENNIUM Comment: Diabetes: >=200 mg/dL plus symp toms BUN 19 (H) 8 - 18 mg/dL CERNER MILLENNIUM Creatinine 0.78 0.70 - 1.20 mg/dL CERNER MILL ENNIUM Sodium 141 135 - 145 mmol/L CERNER MELIZA NIUM Potassium 4.7 3.5 - 5.0 mmol/L CERNER MELIZA NIUM Comment: Please note: ??Patients with WBC >100,00 0 may have falsely elevated Potassium levels. ??For accurate Potassium quantif ication in these patients send serum separator tube (gold top) for subsequent determinations. ??Contact the Clinical Chemistry Laboratory if there are any qu estions. Chloride 108 (H) 98 - 107 mmol/L CERNER MILLENN IUM CO2 26 22 - 31 mmol/L CERNER MILLENNI UM Anion Gap 7 5 - 15 mmol/L CERNER MILLENNIU M Calcium 9.5 8.5 - 10.5 mg/dL CERNER MELIZA NIUM Estimated GFR >60 >=60 CERNER MILLENNIU M Comment: The National Kidney Disease Education Pr ogram (NKDEP) has recommended all laboratories report estimated GFR (eGFR) along with plasma creatinine measurements to assist you with recognit ion of early kidney disease. Caveats: ??Plasma creatinine should be a t steady-state (unchanged within the past week). For patient s multiply eGFR by 1.2.MDRD equation has not been validated for pediatric pat ients and is only valid for patients with age >= 18 years. At present, NKDEP does NOT recommend usi ng the MDRD equation for drug dosing purposes and pharmacists should continue to use their current dosing methods. In addition, numerical eGFR values great er than 60 ml/min/1.73 square meters should be treated as > 60, and not an ex act number due to greater inaccuracies at these higher values. Per NKDEP, they classify normal renal function as any GFR >60ml/min/1.73 square meters; chronic kidney disease wh en GFR <60, and renal failure when GFR <15. ??This calculation may not be valid for patients with atypical muscle mass (very lean or obese), acute renal failur e, and in patients with diabetic kidney disease. References: http://nkdep.nih.gov/resources/NKDEP_Sug gestn4Labs_0606_508.pdf http://www.kidney.org/professionals/kls/ pdf/faq_gfr.pdf Specimen Anatomical Collection Method Collection Time Receive d Time (Source) Location / / Volume Laterality Blood specimen 07/18/2011 9:45 AM 011 9:54 (specimen) EDT AM EDT Amari Bob MD CHEMISTRY ORDERABLES Performing Organization Address City/[facility]/[place] [address] CERNER MILLBANNERIUM T3 (07/18/2011 9:45 AM EDT) athologist Signature T3, Total 82 75 - 170 CERNER ng/dL [facility] Specimen Anatomical Collection Method Collection Time Receive d Time (Source) Location / / Volume Laterality Blood specimen 07/18/2011 9:45 AM 011 9:54 (specimen) EDT AM EDT Amari Bob MD CHEMISTRY ORDERABLES Performing Organization Address City/[facility] [place] [address] CERNER MILLBANNERIUM T4 (07/18/2011 9:45 AM EDT) P athologist Signature T4, total 6.6 5.1 - 10.8 CERNER mcg/dL [facility] Comment: Reference Range: [place] Cord Blood: ??6.9-14.4 mcg/dL Females: ??7.2-14.2 mcg/dL Pediatric ranges: ??Interpret with cauti on-ranges have not been verified Specimen Anatomical Collection Method Collection Time Receive d Time (Source) Location / / Volume Laterality Blood specimen 07/18/2011 9:45 AM 011 9:54 (specimen) EDT AM EDT Amari Bob MD CHEMISTRY ORDERABLES Performing Organization Address City/State/ZIP Code Phon e Number [place] [phone] [facility] [address] [facility] TSH (07/18/2011 9:45 AM EDT) P athologist Signature TSH 1.95 0.27 - 4.20 CERNER mcIU/mL MILLENNIUM Specimen Anatomical Collection Method Collection Time Receive d Time (Source) Location / / Volume Laterality Blood specimen 07/18/2011 9:45 AM 011 9:54 (specimen) EDT AM EDT Amari Bob MD CHEMISTRY ORDERABLES Performing Organization Address City/[facility]/ZIP Code Phon e Number [address] LABORATORY [facility] documented in this encounter Visit Diagnoses Diagnosis Bipolar affective disorder - Primary Bipolar disorder, unspecified documented in this encounter Care Teams Nonprofit Financial Controller Relationship Specialty Start Date End Date Ayana Lai MD PCP - General 10/22/10 07/17/[address] [place] [address] documented as of this encounter
--- OUTSIDE RECORDS SUMMARY | 2022-05-26 22:02 | XMS_ITS | Encounter Summary ---
:1965 Author Organization [facility] [place] [address] Care Team Providers Name Role Phone Marlin Miramontes APRN Primary Care Provider Encounter Details Date Type Department Care Team Description 04/11/2014 External Results Psychiatry and Rupali Palomo MD Behavioral Health at [facility] PSYCHIATRY DEPT [facility] [place] [address] [place] [address] [phone] Social History Tobacco Use Types Packs/Day Years Used Date Never Smoker Alcohol Use Standard Drinks/Week Comments No 0 (1 standard drink = 0.6 oz pure alcoho l) Sex Assigned at Date Recorded Female 02/11/2021 8:25 PM EDT documented as of this encounter Plan of Treatment Upcoming Encounters Date Type Specialty Care Team Description 06/30/2022 TH Visit (TeleHealth) Psychiatry Ashtyn Joseph APRN [facility] ER [address] [place], [place] [address] (Wo rk) documented as of this encounter Procedures Procedure Name Priority Date/Time Associated Diagnosis Comme nts EXTERNAL LAB CBC CMP Routine 04/06/2014 Results for this THYROID RESULTS PANEL proced ure are in the results section . LITHIUM LEVEL Routine 04/06/2014 Results for th is procedure are i n the results section . documented in this encounter Results (ABNORMAL) CBC / CMP / Thyroid External Results (04/06/2014) athologist Signature WBC 6.35 Hemoglobin 12.0 12.0 - 16.0 Hematocrit 38.9 36.0 - 46.0 MCV 85.3 82.0 - 108.0 Platelets 333 Sodium 144 137 - 147 Potassium 4.3 3.4 - 5.3 Chloride 107 99 - 108 CO2 29 22 - 29 BUN 12 Creatinine 1 Estimated GFR 59.69 Glucose Lvl 88 Calcium 9.3 8.7 - 10.7 Magnesium Phosphorus 2.5 - 4.9 Total Protein 6.2 (L) 6.4 - 8.2 Albumin 3.6 3.5 - 5.0 Total Bilirubin 0.4 0.1 - 1.4 Bili, Direct 0.1 0.01 - 0.4 Alk Phos 41 (L) Comment: 46-116 U/L AST 14 (L) 13 - 35 Comment: 15-37 U/L ALT 29 7 - 35 GGT LDH 80 - 250 Amylase Lipase TSH 1.24 Comment: 0.36 - 3.74 uIU/mL T4, total Specimen (Source) Anatomical Location Collection Method / Collectio n Time Received Time / Laterality Volume 04/06/2014 Rupali Palomo MD POINT OF CARE TEST ORDERABLE S (ABNORMAL) [place] level (04/06/2014) athologist Signature [place] Lvl 0.4 (L) Comment: 0.6-1.2 mmol/L [collected at 10 :53 AM][ Specimen (Source) Anatomical Location Collection Method / Collectio n Time Received Time / Laterality Volume Blood specimen 04/06/2014 (specimen) Rupali Palomo MD CHEMISTRY ORDERABLES documented in this encounter Visit Diagnoses Not on filedocumented in this encounter Care Teams Hand Molder Relationship Specialty Start Date End Date Marlin Miramontes APRN PCP - General 06/14/13 01/25/17 documented as of this encounter
--- OUTSIDE RECORDS SUMMARY | 2022-05-26 22:02 | XMS_ITS | Encounter Summary ---
:1965 Author Organization [place] [address] Care Team Providers Name Role Phone Marlin Miramontes APRN Primary Care Provider Encounter Details Date Type Department Care Team Description 07/25/2015 External Results Psychiatry and Behavioral Provider[facility] [place] [address] Social History Tobacco Use Types Packs/Day Years Used Date Never Smoker Alcohol Use Standard Drinks/Week Comments No 0 (1 standard drink = 0.6 oz pure alcoho l) Sex Assigned at Date Recorded Female 02/11/2021 8:25 PM EDT documented as of this encounter Plan of Treatment Upcoming Encounters Date Type Specialty Care Team Description 06/30/2022 TH Visit (TeleHealth) Psychiatry Mohan Joseph APRN [facility] [address] [place], [place] [address] (Wo rk) documented as of this encounter Procedures Procedure Name Priority Date/Time Associated Diagnosis Comme nts LAB SCAN Routine 07/20/2015 documented in this encounter Results Scan Doc: Lab (07/20/2015) Narrative This result has an attachment that is no t available. Scanning Provider MEDIA MGR SCAN EXT ORDR/RSLT documented in this encounter Visit Diagnoses Not on filedocumented in this encounter Care Teams Planning Supervisor Relationship Specialty Start Date End Date Marlin Miramontes APRN PCP - General 06/14/13 01/25/17 documented as of this encounter
--- OUTSIDE RECORDS SUMMARY | 2022-05-26 22:02 | XMS_ITS | Encounter Summary ---
:1965 Author Organization [facility] [place] [address] Care Team Providers Name Role Phone Ayana Lai MD Primary Care Provider Encounter Details Date Type Department Care Team Description 02/12/2011 Office Visit Psychiatry and Behavioral HuNaveen MD [facility] Yg baez [place] [address] [place] [address] [phone] (Wo rk) Social History Tobacco Use Types Packs/Day Years Used Date Never Assessed Sex Assigned at Date Recorded Female 02/11/2021 8:25 PM EDT documented as of this encounter Plan of Treatment Upcoming Encounters Date Type Specialty Care Team Description 06/30/2022 TH Visit (TeleHealth) Psychiatry Ashtyn Joseph APRN [facility] ER PSYCHIATRY [place], [place] [address] (Wo rk) documented as of this encounter Visit Diagnoses Not on filedocumented in this encounter Care Teams Luster Repairer Relationship Specialty Start Date End Date Ayana Lai MD PCP - General 10/22/10 07/17/11 [address] [place], [place] [address] documented as of this encounter
--- OUTSIDE RECORDS SUMMARY | 2022-05-26 22:02 | XMS_ITS | Encounter Summary ---
:1965 Author Organization [facility] [place] [address] Care Team Providers Name Role Phone Virginie Gudino APRN Primary Care Provider Reason for Visit Reason Comments Medication Refill Encounter Details Date Type Department Care Team Description 03/28/2014 Refill Psychiatry and Behavioral David Farias MD [facility] [address] [place] [address] [phone] (Wo salvador) Social History Tobacco Use Types Packs/Day Years Used Date Never Smoker Alcohol Use Standard Drinks/Week Comments No 0 (1 standard drink = 0.6 oz pure alcoho l) Sex Assigned at Date Recorded Female 02/11/2021 8:25 PM EDT documented as of this encounter Plan of Treatment Upcoming Encounters Date Type Specialty Care Team Description 06/30/2022 TH Visit (TeleHealth) Psychiatry Ashtyn Joseph APRN [facility] [address] [place], [place] [address] (Wo rk) documented as of this encounter Visit Diagnoses Not on filedocumented in this encounter Care Teams System Support Developer Relationship Specialty Start Date End Date Virginie Gudino APRN PCP - General Family Medicine 06/16/18 [address] [place] [address] (work) documented as of this encounter
--- OUTSIDE RECORDS SUMMARY | 2022-05-26 22:02 | XMS_ITS | Encounter Summary ---
:1965 Author Organization [facility] [place] [address] Care Team Providers Name Role Phone Marlin Miramontes Ashtyn CLAY Primary Care Provider Reason for Visit Reason Comments Bipolar Disorder Encounter Details Date Type Department Care Team Description 05/23/2014 Office Visit Psychiatry and Rupali Palomo, Bipolar I disorder, Behavioral Health at MD most recent episode [facility] (or current) [facility] DR emanuel, in [facility] PSYCHIATRY DEPT or unspecified [place] [phone] (Primary Dx) [id number] Social History Tobacco Use Types Packs/Day Years Used Date Never Smoker Alcohol Use Standard Drinks/Week Comments No 0 (1 standard drink = 0.6 oz pure alcoho l) Sex Assigned at Date Recorded Female 02/11/2021 8:25 PM EDT documented as of this encounter Last Filed Vital Signs Vital Sign Reading Time Taken Comments Blood Pressure 122/72 05/23/2014 6:19 PM EDT Pulse 65 05/23/2014 6:19 PM EDT Temperature - - Respiratory Rate 19 05/23/2014 6:19 PM EDT Oxygen Saturation - - Inhaled Oxygen Concentration - - Weight - - Height - - Body Mass Index - - documented in this encounter Progress Notes Darryl Gonzales MD - 05/23/2014 4:09 PM EDT PSYCHIATRY TEACHING PHYSICIAN INVOLVEMENT Location: Office Attending Physician: Darryl Gonzales MD Resident name:Rupali Paolmo MD I saw and evaluated the patient with the above named resident/ See their note for details. I reviewed the patient's history during the visit and I agree with the details as written. My exam confirms the resident's findings. The assessment and plan were formulated in discussion with me and I agree with them as documented. Major issues discussed: Still depressed. Interested in Latuda. However depression better on Librium 188 mg/day but felt cogntively foggy. Current Librium dose is 900 mg/day. Will increase to 1200. Additional INformation Rupali Palomo MD - 05/23/2014 2:59 PM EDT ESTABLISHED ADULT PATIENT OFFICE VISIT NOTE Time Spent: 30 minutes Attendee(s): Patient, this director underwriter sales, PA student Katie Carbajal. This patient was seen with Dr. Darryl Gonzales. See his note for confirmatory and/or revisionary documentation. HISTORY Chief Complaint: Shireen Silva is a 49 y.o. woman who presents today for follow-up of her mood disorder. HPI: () Things are so-so, I guess. Nothing new. Depression is still really bothering me. I don't know, I think the medications need to be changed. My insurance said they'd cover Latuda, but a little worried about whether it will actually happen. Does not recall a difference when on Wellbutrin XL 450 mg vs. 300 mg. Zoar, highest dose was 1800 mg and felt better but had more memory problems. Was not sedating. I've never really felt like the Zoar really managed the depression. The combination seemed effectiveat some point. I feel like I'm existing not living. It affects my family. I always feel unmotivated. No SI or HI. No hypo/diana, nothing extreme. Money will trigger me sometimes for a day. No AVH. No paranoid. Sleeping okay. Eating fine. Does mood diary. Exercises but it doesn't really help. I do kind of drink once in a while, just wine. In the past few months, I drink a glass or 2 of wine a few times a week. Most recent labs: Component Latest Ref Rng 04/06/2014 WBC 6.35 Hemoglobin 12.0 - 16.0 12.0 Hematocrit 36.0 - 46.0 38.9 MCV 82.0 - 108.0 85.3 Platelets 333 Sodium 137 - 147 144 Potassium 3.4 - 5.3 4.3 Chloride 99 - 108 107 CO2 22 - 29 29 BUN 12 Creatinine 1 Estimated GFR 59.69 Glucose Lvl 88 Calcium 8.7 - 10.7 9.3 Total Protein 6.4 - 8.2 6.2 (L) Albumin 3.5 - 5.0 3.6 Total Bilirubin 0.1 - 1.4 0.4 Bili, Direct 0.01 - 0.4 0.1 Alk Phos 41 (L) AST 13 - 35 14 (L) ALT 7 - 35 29 TSH 1.24 Zoar Lvl 0.4 (L) Quality: In terms of depression, appears mildly dysphoric, and reports good sleep and appetite. Neurotic. Diffident. Severity: Based on PHQ9, mildly depressed. No SI or HI; no hypo/diana or psychosis, some minor episodes of feeling triggers desire to spend which she feels she can control. No cutting. Duration: No change in depression since last appointment. Context: Is trying to take good care of herself physically but feels her depression is negatively affecting her family. Modifying factors: Thinks her medications need to be changed. Zoar was helpful for depression at 1800 mg daily but caused mental fogginess. Did not notice a difference in depression on 450 mg of Bupropion XL. Associated S&S: Sleep is good. Appetite is fine. Exercising and trying to eat healthy. 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 buPROPion (WELLBUTRIN XL) 300 mg 24 hr tablet Take 1 tablet by mouth every morning. 30 tablet 5 ??? zolpidem (AMBIEN) 10 mg tablet Take 1 tablet by mouth nightly as needed for Sleep. 30 tablet 3 ??? fexofenadine (OVIDIO) 60 mg tablet Take 60 mg by mouth daily. Indications: Seasonal Allergic Rhinitis ??? cetirizine (ZYRTEC) 10 mg tablet Take 10 mg by mouth daily. Indications: Seasonal Allergic Rhinitis ??? LORazepam (ATIVAN) 0.5 mg tablet Take 1 tablet by mouth every 6 hours as needed (panic attacks).7 tablet 0 ??? pseudoephedrine (SUDAFED) 30 mg tablet Take 30 mg by mouth every 4 hours as needed. ??? calcium carbonate (TUMS) 200 mg calcium (500 mg) chewable tablet Take 1 tablet by mouth daily asneeded. ??? multivitamin (THERAGRAN) tablet Take 1 tablet by mouth daily. ??? lithium (LITHOBID) 300 mg CR tablet Take 2 tablets by mouth 2 times daily. 120 tablet 2 ??? [DISCONTINUED] tiZANidine (ZANAFLEX) 4 mg tablet Take 4 mg by mouth every 6 hours as needed. Pertinent Medication Side Effects: Oxcarbazapine caused dizziness, nausea, fogginess, and worsened acne. Risperidone was reported to be associated with a rash. No side effects from current medications. Review of Systems: (12/01/09) Constitutional: No recent fevers or chills. Eyes: Not wearing corrective lenses. ENT: No sore throats or dysphagia. Cardiovascular: No CP or palpitations. Respiratory: No cough or SOB. GI: No GI upset, N/V. : Endorses difficulty with PMS (increased anger, head feels noisy or fuzzy). Musculoskeletal: No aches or pains currently. Integumentary: No rashes or lesions. Neurological: No seizures or BARRIGA. Psychiatric: See HPI above Endocrine: History of thyroid cyst. Hematologic/Lymphatic: Does not bleed or bruise easily. Allergic/Immunological: See reviewed medication allergies; having difficulty with seasonal allergies. PFSH: () Past Medical/Psychiatric History: #Prior diagnoses - Bipolar 1 disorder (mixed, manic, depressed); says diana consisted of increased spending and would last a few days. Generalized anxiety disorder. Borderline traits. #Prior Hospitalizations - None endorsed. [facility] and had seen Karen Mallory in [facility] (therapist) for years. Currently under the care of Harsh Carranza in [place], [place] (for the past 1 year). #Prior Suicide attempts - None endorsed. Does have history of cutting arms to relieve anxiety and not as suicidal gesture. Last cutting was 6 months ago. #Prior Medication trials - Citalopram, Venlafaxine, Fluoxetine (drove into diana in 2004), Oxcarbazepine (at high doses caused dizziness, fogginess, nausea, and worsened acne), Risperidone (helped withmood but reported to have caused a rash), Zoar (Eskalith, current medication), Bupropion XL (current medication), Eszopiclone (ineffective for sleep), Oxazepam (ineffective for anxiety), Clonazepam,Zolpidem (current medication). Family Psychiatric and Medical History: Brother with alcohol use disorder, possible Bipolar disorder. Paternal grandmother with unknown psychiatric diagnosis but history of psychiatric hospitalization.Paternal uncle and cousins with unknown psychiatric diagnoses but multiple suicide attempts. Social History: Born in [facility]; has 1 older brother and 2 older sisters. Has a bachelor's degree in Psychology. Had first manic episode per report in college, lasting 2-3 months. 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 Currently lives in [place], [place] with her . Has three sons (aged 13, 20, and 22) all living at home; youngest has been recipient of psychiatric care at [facility] for years for behavioral disturbance. was deployed to [place] in 2008 andreturned safely. No domestic violence and everyone has been getting along well. Does not smoke cigarettes. Has never been a heavy drinker but reports recently drinking more often (a few glasses of wine per week). No history of illicits (no Heroin or Marijuana). EXAM [05/08/14 bullets (incl VS)] Constitutional System ? Vital Signs: Blood pressure 122/72, pulse 65, resp. rate 19. 122/72 65 Musculoskeletal System ? Muscle Strength/Tone (note atrophy, abnormal movements): Normal bulk and tone. No abnormal movements or tremors. ? Gait and Station: Ambulates with steady, stable gait and normal station. Psychiatric System ? General Appearance/Behavior: Thin woman, appears younger than stated age. Curly red bobbed hair. Very small, sharp, slightly discolored teeth and very nervous grin. Well-groomed and nicely dressed. Some PMA noted, less fidgety. Cooperative. ? Speech: Normal rate, normal rhythm. Low volume. No dysarthria or word-finding difficulties. ? Thought Process: Circumstantial to linear. Logical. Goal-directed. ? Associations: Intact. ? Abnormal Thoughts and Perceptions / Thought Content: Homicidality / Violent Thoughts: No homicidal or violent ideation. Suicidality: No suicidal thoughts. Hallucinations: No auditory or visual hallucinations. Delusions: No paranoid, grandiose, or guilty ideation. Obsessions: None endorsed. ? Judgment and Insight: Insight is fair. Judgment is fair to good. ? Mood & Affect: Mood is dysphoric. Affect is constricted, mood-congruent. Anxious laughter. ? Orientation: Grossly oriented to self, date, location, situation. ? Attention/Concentration: Attends to conversation, answers questions appropriately. Does not seem to be responding to internal stimuli. ? Memory: No gross deficits in recent or remote recall. ? Language: Normal Tanzanian. ? Fund of Knowledge: Seems appropriate for age and experience. Psychotherapeutic Interventions and Response: Active listening, with positive response. MEDICAL DECISION MAKING ASSESSMENT: Shireen Silva is a 49 y.o. woman with a history of the diagnosis of Bipolar 1 disorder,most recent episode depressed and MALVIN. Her symptoms of depressed mood are reported to be a little worse. She is not suicidal, no homicidal, not hypo/manic, and not psychotic. Seems mostly dysthymic, with maladaptive personality structure and difficulty accessing coping skills. Nevertheless, as medications seem to be helping with mood dysregulation, will continue for now with the following changes - we will change her Zoar from Eskalith to Lithobid and increase her dose to 600 mg BID. She is amenable to this plan. She will need to get labs drawn before she returns to clinic on 06/19 at 10:30 AM. PLAN: Safety Risk Management: No SI or HI. Risk factors include some relationship strain, impulsivity. Protective factors include family, therapeutic alliance with a health care provider, and future plans. Continue current medication(s) with the following changes: Change Eskalith to Lithobid and increase to 600 mg BID. Labs ordered: Thyroid panel, BMP, Zoar level; patient given lab order sheet to have blood drawn at [facility], results to be faxed to this director underwriter sales in May, prior to our next appointment. Patient Instruction/Education provided: Patient provided verbal instructions regarding plan of care. Patient understands the plan? Yes documented in this encounter Plan of Treatment Upcoming Encounters Date Type Specialty Care Team Description 06/30/2022 TH Visit (TeleHealth) Psychiatry Ashtyn Joseph APRN [facility] PSYCHIATRY [place], [place] [address] (Wo rk) documented as of this encounter Visit Diagnoses Diagnosis Bipolar I disorder, most recent episode (or current) depressed, in partial or unspecified remission - Primary documented in this encounter Care Teams Painter Assistant Relationship Specialty Start Date End Date Marlin Miramontes APRN PCP - General 06/14/13 01/25/17 documented as of this encounter
--- OUTSIDE RECORDS SUMMARY | 2022-05-26 22:02 | XMS_ITS | Encounter Summary ---
:1965 Author Organization [facility] [place] [address] Care Team Providers Name Role Phone Ayana Lai MD Primary Care Provider Encounter Details Date Type Department Care Team Description 03/17/2012 Orders Only Psychiatry and Behavioral David Farias MD [facility]ae[facility] [place] [address] [place] [address] [phone] (Wo rk) Social History Tobacco Use Types Packs/Day Years Used Date Never Smoker Alcohol Use Standard Drinks/Week Comments No 0 (1 standard drink = 0.6 oz pure alcoho l) Sex Assigned at Date Recorded Female 02/11/2021 8:25 PM EDT documented as of this encounter Plan of Treatment Upcoming Encounters Date Type Specialty Care Team Description 06/30/2022 TH Visit (TeleHealth) Psychiatry Ashtyn Joseph APRN [facility] PSYCHIATRY [place], [place] [address] (Wo rk) documented as of this encounter Visit Diagnoses Not on filedocumented in this encounter Care Teams Hot Patcher Relationship Specialty Start Date End Date Ayana Lai MD PCP - General 07/18/11 03/29/13 [address] [place] [address] documented as of this encounter
--- OUTSIDE RECORDS SUMMARY | 2022-05-26 22:02 | XMS_ITS | Encounter Summary ---
:1965 Author Organization [facility] [place] [address] Care Team Providers Name Role Phone Kulwinder Marlin Chamorro APRN Primary Care Provider Reason for Visit Reason Comments Depression Anxiety Encounter Details Date Type Department Care Team Description 02/26/2015 Office Visit Psychiatry and Rpuali Palomo, Bipolar disorder without psychotic features (Primary Dx); Behavioral Health at [facility] High risk medication use [facility] [address] [facility] PSYCHIATRY DEPT [place] [phone] Social History Tobacco Use Types Packs/Day Years Used Date Never Smoker Alcohol Use Standard Drinks/Week Comments No 0 (1 standard drink = 0.6 oz pure alcoho l) Sex Assigned at Date Recorded Female 02/11/2021 8:25 PM EDT documented as of this encounter Last Filed Vital Signs Vital Sign Reading Time Taken Comments Blood Pressure 125/62 03/02/2015 10:00 AM EDT Pulse 63 03/02/2015 10:00 AM EDT Temperature - - Respiratory Rate - - Oxygen Saturation - - Inhaled Oxygen Concentration - - Weight 67.1 kg (148 lb) 03/02/2015 10:00 AM EDT Height 167.6 cm (5' 6) 03/02/2015 10:00 AM EDT Body Mass Index 23.89 03/02/2015 10:00 AM EDT documented in this encounter Progress Notes Zhanna Lorenzo MD - 03/03/2015 10:06 PM EDT PSYCHIATRY TEACHING PHYSICIAN INVOLVEMENT Location: Office Attending Physician: Zhanna Lorenzo MD Resident name: Rupali Palomo MD I saw and evaluated the patient with the above named resident/ See their note for details. I reviewed the patient's history during the visit and I agree with the details as written. My exam confirms the resident's findings. The assessment and plan were formulated in discussion with me and I agree with them as documented. Major issues addressed/discussed: We reviewed the patient's compaints and discussed next steps in her treatment. She agreed to update her laboratory results. Although an increase in her antidepressant risks excessive stimulation and cycling into diana, that risk is countered by lithium. Also, she is ex periencing some panic, so we thought the risk benefit ratio was on the side of a small increase in fluoxetine. We discussed warning signs of diana and reiterated the importance of calling us if needed.. Additional comments: none Rupali Palomo MD - 02/26/2015 10:14 AM EDT ESTABLISHED ADULT PATIENT OFFICE VISIT NOTE Time Spent: 30 minutes Attendee(s): Patient, this grant writer. This patient was seen with Dr. Zhanna Lorenzo. See her note for confirmatory and/or revisionary documentation. HISTORY Chief Complaint: Shireen Silva is a 49 y.o. woman who presents today for follow-up of her mood disorder. HPI: () Since last seen in clinic, Shireen said of her mood, I'm blah, I guess. She reported, the depressionstill has been an ongoing thing, and that it has been a little worse, I think, but I don't know ifit's because I've been depressed so long. She denied any active suicidal thoughts, any cutting, or any violent and homicidal thoughts. She likewise endorsed no AVH. We revisited the idea of increasingher Fluoxetine (as we'd discussed at her past visit) and Shireen noted that she felt unsure about increasing the Fluoxetine. I've been taking my meds and everything, I have 2 anti-depressants and I'm still depressed. I'm not sure, the Fluoxetine is the most recent change and I've gained weight. I exercise daily and I'm wondering if that has anything to do with it. Her weight worries me a lot, and although she denied ever restricting or purging, she said, I'm conscious of what I put in my body. This grant writer asked if Shireen had notice any improvement in her mood since the time change and warmer weather. She replied, I haven't noticed a difference with the weather change, if anything I feel worse, like guilty, I should be out and doing something. She is not currently seeing a therapist, and when asked why, she explained, the first therapist helped, but the second not so much. It's hard making that step of who to try, [place] In terms of her sleep, she observed that she had been slee ping more than I was, taking more naps. She has also been imbibing alcohol more regularly than usual for the past month or so, a glass or 2 of wine most nights, but she does not feel that this has ever been a problem for her. Most recent labs: Component Latest Ref Rng 06/12/2014 04/06/2014 08/17/2013 Sodium 137 - 147 140 144 143 Potassium 3.4 - 5.3 4.1 4.3 4.3 Chloride 99 - 108 105 107 107 CO2 22 - 29 28 29 27 BUN 14 12 15 Creatinine 1 1 1 Glucose Lvl 91 88 79 Calcium 8.7 - 10.7 9.3 9.3 8.9 TSH 1.48 1.24 1.03 Vandervoort Lvl 0.61 0.4 (L) 0.41 (L) Quality: In terms of depression, seems dysphoric, irritable, looking for a culprit for her perceivedweight gain (wanting to make medication changes). Severity: Based on PHQ9, moderately severely depressed. No active or passive SI and no HI; no hypo/diana or cutting. No hallucinations. Denies eating disordered behavior. Duration: Depression seems worse. Timing: Feels mood has worsened with improvement in weather and feeling guilty about not exercising. Context: Worried about weight gain so watchful about what she eats, exercising every day. Leery of trying another therapist in [place] town. Modifying factors: Fluoxetine at current dose less helpful. Usually takes have dose Zolpidem or her Lorazepam to sleep but not both. Associated S&S: Sleep is increased. Appetite is okay. Feels she has gained weight. Most recent PHQ9: PHQ9 02/20/2015 Little interest or pleasure Nearly every day Down, depressed, hopeless More than half the days Trouble sleeping Nearly every day Tired or no energy Nearly every day Poor appetite or overeating More than half the days Feeling like a failure More than half the days Trouble concentrating (newspaper) Several days Moving or speaking slowly Several days Would be better off Several days PHQ9 Scores 18 (Moderately Severe Depression) Current Medications: Current Outpatient Prescriptions Medication Sig Dispense Refill ??? FLUoxetine (PROZAC) 20 mg Tablet Take 1 tablet by mouth daily. 30 tablet 3 ??? FLUoxetine (PROZAC) 10 mg Tablet Take 1 tablet by mouth daily. Take with 20 mg tablet for total of 30 mg daily. 30 tablet 3 ??? LORazepam (ATIVAN) 0.5 mg Tablet Take 1 tablet by mouth every 6 hours as needed (panic attacks).7 tablet 3 ??? zolpidem (AMBIEN) 10 mg Tablet Take 1 tablet by mouth nightly as needed for Sleep. 30 tablet 3 ??? lithium (LITHOBID) 300 mg Tablet Sustained Release Take 2 tablets by mouth 2 times daily. 120 tablet 3 ??? UNABLE TO FIND Med Name: [facility] Body protein shakes. Per website, each [...] Quinoa, Amaranth, Pea, Acai, Acerola siegel, Michael Stout, Coconut flower nectar, Pomegranate, Blueberry, Ramya hips, Apple pectin. ??? buPROPion (WELLBUTRIN XL) 300 mg Tablet [...] for this visit. Pertinent Medication Side Effects: Oxcarbazapine caused dizziness, nausea, fogginess, and worsened acne. Risperidone was reported to be associated with a rash. Did not feel any benefit from Citalopram.Had bad withdrawal with Venlafaxine if she missed a dose (if I forgot to take it I felt crazy). Review of Systems: (12/01/09) Constitutional: No recent fevers or chills. Sleeping more than usual. Feels she has gained weight. Eyes: Not wearing corrective lenses. ENT: No sore throats or dysphagia. Cardiovascular: No CP or palpitations. Respiratory: No cough or SOB. GI: No GI upset, N/V. No constipation or diarrhea. : No dysuria. Musculoskeletal: No aches or pains currently. Integumentary: No rashes or lesions. Neurological: No seizures or BARRIGA. Psychiatric: See HPI above. Endocrine: History of thyroid cyst. Hematologic/Lymphatic: Does [...] 2006 and had seen Karen Mallory in [facility] (therapist) for years. Currently under the care of Harsh Carranza in [place], [place] (for the past 1 year). #Prior [...] but reported to have caused a rash), Vandervoort (Eskalith, current medication), Bupropion XL (current medication), Eszopiclone (ineffective for sleep), Oxazepam (ineffective for anxiety), Clonazepam,Zolpidem (current medication). Update (10/02) - Takes [employer] Body shakes and finds them helpful. Based on the contents (per the [employer] website and see Medication List), some drug- drug interactions need to be monitored. - Ashwagandha can be sedating when used with FLATTENING MACHINE OPERATOR depressants (i.e. Clonazepam), and can increase thyroid hormone levels. - Astragalus can cause increases in serum Vandervoort level. - Reishi mushrooms can slow clotting and cause hypotension. - Schisandra can worsen GERD symptoms and interfere with metabolism via the 2C9 and 3A4 [id number] enzymes. Family Psychiatric and Medical History: Brother with alcohol use disorder, possible Bipolar disorder. Paternal grandmother with unknown psychiatric diagnosis but history of psychiatric hospitalization.Paternal uncle and cousins with unknown psychiatric diagnoses but multiple suicide attempts. Social History: Born in [facility]; has 1 older brother and 2 older sisters. Has a bachelor's degree in Psychology. Had first manic episode per report in college, lasting 2-3 months. 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 Currently lives in [place], [place] with her . Has three sons (aged 13, 20, and 22) all living at home; youngest has been recipient of psychiatric care at [facility] for years for behavioral disturbance. was deployed to [place] in 2008 andreturned safely. No domestic violence and everyone has been getting along well. Does not smoke cigarettes. Has never been a heavy drinker but reports recently drinking more often (a few glasses of wine per week). No history of illicits (no Heroin or Marijuana). Update (08/07) Son that she is closest to is moving out and she is missing him. Update (02/26/15) Drinking more wine than usual. EXAM [05/08/14 bullets (incl VS)] Constitutional System ? Vital Signs: Blood pressure 125/62, pulse 63, height 167.6 cm (5' 6), weight 67.132 kg (148 lb). Musculoskeletal System ? Muscle Strength/Tone (note atrophy, abnormal movements): Normal bulk and tone. No abnormal movements or tremors noted (she reports an intention tremor). ? Gait and Station: Ambulates with steady, stable gait and normal station. Psychiatric System ? General Appearance/Behavior: Thin woman, appears younger than stated age. Dark brown, wavy hair. Very small, sharp, slightly discolored teeth and nervous grin. Neatly dressed for the weather. A little fidgety. Cooperative. ? Speech: Normal rate, normal rhythm. Low volume. No dysarthria. ? Thought Process: Circumstantial to linear. Logical. [...] good. ? Mood & Affect: Mood is blah, I guess. Affect is constricted, mood-congruent. ? Orientation: Grossly oriented to self, date, location, situation. ? Attention/Concentration: Attends to conversation, answers questions appropriately. Does not seem to be responding to internal stimuli. ? Memory: No gross deficits in recent or remote recall. ? Language: Normal Danish. No word-finding difficulties. ? Fund of Knowledge: Seems appropriate for age and experience. Psychotherapeutic Interventions and Response: Active listening, with positive response. MEDICAL DECISION MAKING ASSESSMENT: Shireen Silva is a 49 y.o. woman with a history of the diagnosis of Bipolar 1 disorder,most recent episode depressed and MALVIN. Her depression has been somewhat worse since our last visit, although her sleep has improved. She is not suicidal, not homicidal, not hypo/manic, and not psychotic. At this time, she is amenable to increasing her Fluoxetine to 30 mg daily. We have also encouragedher not to take her Lorazepam and Zolpidem together and she typically does not do this. We will see her back in clinic in 2 months. PLAN: Safety Risk Management: No SI or HI. Risk factors include some relationship strain, impulsivity. Protective factors include family, therapeutic alliance with a health care provider, and future plans. Continue current medication(s) with the following changes: Increase Fluoxetine to 30 mg qhs. Labs ordered: Vandervoort level, BMP, TSH. Patient Instruction/Education provided: Patient provided verbal instructions regarding plan of care.Encouraged to be mindful of contents of nutritional supplements given potential for adverse interactions with psychiatric medications. Patient understands the plan? Yes Rupali Palomo MD Pager [phone] documented in this encounter Plan of Treatment Upcoming Encounters Date Type Specialty Care Team Description 06/30/2022 TH Visit (TeleHealth) Psychiatry Ashtyn Joseph APRN [facility] [place], [place] [address] (Wo rk) documented as of this encounter Visit Diagnoses Diagnosis Bipolar disorder without psychotic featu res - Primary High risk medication use Encounter for long-term (current) use of other medications documented in this encounter Care Teams Amusement Or Recreation Card Checker Relationship Specialty Start Date End Date Marlin Miramontes APRN PCP - General 06/14/13 01/25/17 documented as of this encounter
--- OUTSIDE RECORDS SUMMARY | 2022-05-26 22:02 | XMS_ITS | Encounter Summary ---
:1965 Author Organization [facility] [place] [address] Care Team Providers Name Role Phone Marlin Miramontes DANNA Primary Care Provider Encounter Details Date Type Department Care Team Description 09/24/2015 Office Visit Psychiatry and Austin Wolfe, Bipolar d simon, in Behavioral Health at partial remission, [facility] most recent episode [facility] adelfo [facility] PSYCHIATRY [place] [phone] Social History Tobacco Use Types Packs/Day Years Used Date Never Smoker Alcohol Use Standard Drinks/Week Comments No 0 (1 standard drink = 0.6 oz pure alcoho l) Sex Assigned at Date Recorded Female 02/11/2021 8:25 PM EDT documented as of this encounter Last Filed Vital Signs Vital Sign Reading Time Taken Comments Blood Pressure 117/57 09/24/2015 1:16 PM EDT Pulse 63 09/24/2015 1:16 PM EDT Temperature - - Respiratory Rate - - Oxygen Saturation - - Inhaled Oxygen Concentration - - Weight 65.8 kg (145 lb) 09/24/2015 1:16 PM EDT Height 167.6 cm (5' 6) 09/24/2015 1:16 PM EDT Body Mass Index 23.4 09/24/2015 1:16 PM EDT documented in this encounter Progress Notes Zhanna Lorenzo MD - 09/29/2015 6:11 PM EDT PSYCHIATRY TEACHING PHYSICIAN INVOLVEMENT Location: Office Attending Physician: Zhanna Lorenzo MD Resident name: Asutin Wolfe MD I saw and evaluated the patient with the above named resident/ See their note for details. I reviewed the patient's history during the visit and I agree with the details as written. My exam confirms the resident's findings. The assessment and plan were formulated in discussion with me and I agree with them as documented. Major issues addressed/discussed: The patient continues to experience dysphoria and wants further increase in her fluoxetine. Her lithium level of 0.62 is not sufficient to protect her from switch intomania in the context of antidepressant medication, and we addressed this with her, including explanations and references to past excessive activation on fluoxetine. We also explored her reasons for increasing alcohol intake and explained how that would worsen her depression. She did not want further increases in lithium, but did ask about getting off bupropion. Given her symptoms, we deferred a taper. Despite our efforts to explain our medication strategy, I'm not sure she understands/agrees with our reluctance to increase the antidepressants. She did agree to consider psychotherapy. Additional comments: none Austin Wolfe MD - 09/24/2015 10:10 AM EDT ESTABLISHED ADULT PATIENT OFFICE VISIT NOTE Time Spent: 30 min Attendee(s): pt This patient was seen with Dr. Zhanna Lorenzo. See her note for confirmatory and/or revisionary documentation. HISTORY Chief Complaint: Shireen Silva is a 50 y.o. Female presents today for medication management/follow up HPI: () Patient reports that things have been mostly the same since her last appointment, although she notes that she has been under more stress recently and feeling overwhelmed. She is not able to identify any specific stressor, but does note that she is finding day-day stresses more challenging. She states my head gets too noisy and she then has a hard time focusing and problem solving to manage things. She states she continues to feel unmotivate mood-polanco, although she has tried to be more activatedafter our discussion last month. She feels low energy remains a prominent component of her presentation, and continues to have chronic passive SI without plan or intent. She states she is still sleeping ok with 10 mg of zolpidem nightly. Of note, she reports that she has been drinking more EtOH recently (2-3 glasses of wine/night). She states this is in response to feeling more stressed/overwhelmed, and it helps her feel more calm. Shedoes not feel that this behavior is negatively impacting her at all. Quality: overwhelmed Severity: mod-severe Duration: chronic Timing: daily Context: recent manic-like episode in the spring, subsequent depression that has persisted since Modifying factors: no effect from up-titration of lithium. Would like to increase Prozac due to pastpositive effects (euphoric, seemed to contribute to recent diana) Associated S&S: anxiety, increased EtOH intake Most recent PHQ9: PHQ9 09/23/2015 Little interest or pleasure Several days Down, depressed, hopeless Several days Trouble sleeping Not at all Tired or no energy More than half the days Poor appetite or overeating More than half the days Feeling like a failure More than half the days Trouble concentrating (newspaper) Several days Moving or speaking slowly Not at all Would be better off Several days PHQ9 Scores 10 (Moderate Depression) Current Medications: Current Outpatient Prescriptions Medication Sig Dispense Refill ??? FLUoxetine (PROZAC) 20 mg Tablet Take 1 tablet by mouth daily. 30 tablet 1 ??? lithium (LITHOBID) 300 mg Tablet Sustained Release Take 2-3 tablets by mouth 2 times daily. Take2 tablets in the morning, and 3 tablets at night 150 tablet 3 ??? zolpidem (AMBIEN) 10 mg Tablet Take 1 tablet by mouth nightly as needed for Sleep. 30 tablet 3 ??? buPROPion (WELLBUTRIN XL) 300 [...] 3 ??? UNABLE TO FIND Med Name: [employer] Body protein shakes. Per website, each contains [...] Gustavo, Quinoa, Amaranth, Pea, Acai, Acerola siegel, Imchael Burns Stout, Coconut flower nectar, Pomegranate, Blueberry, Ramya hips, Apple pectin. No current facility-administered medications for this visit. Pertinent Medication Side Effects: Some tremor with lithium. Otherwise denies Review of Systems: (12/01/09) Constitutional: + fatigue Eyes: ENT: Cardiovascular: Respiratory: GI: : Musculoskeletal: Integumentary: Neurological: + tremor Psychiatric: See HPI above Endocrine: Hematologic/Lymphatic: Allergic/Immunological: See reviewed allergies PFSH: () Past Medical/Psychiatric History: no interval change Family Psychiatric and Medical History: no interval change Social History: no interval change. She is , with two children at home, unemployed. EXAM [05/08/14 bullets (incl VS)] Constitutional System ? Vital Signs: Blood pressure 117/57, pulse 63, height 167.6 cm (5' 6), weight 65.772 kg (145 lb). Musculoskeletal System ? Muscle Strength/Tone (note atrophy, abnormal movements): no abnormalities noted ? Gait and Station: WNL Psychiatric System ? General Appearance/Behavior: female patient, appropriately groomed/dressed, interactive/cooperative, with occasional eye contact. Appears ill at ease at times. ? Speech: normal volume/rate/prosody ? Thought Process: linear and coherent ? Associations: tight ? Abnormal Thoughts and Perceptions / Thought Content: Homicidality / Violent Thoughts: none reported/elicited Suicidality: none reported/elicited Hallucinations: none reported/elicited Delusions: none reported/elicited Obsessions: none reported/elicited ? Judgment and Insight: fair ? Mood & Affect: unmotivated/affect is anxious ? Orientation: x 3 ? Attention/Concentration: alert/attentive and without need for redirection ? Memory: grossly intact to recent/remote events ? Language: fluent ? Fund of Knowledge: average Psychotherapeutic Interventions and Response: n/a MEDICAL DECISION MAKING ASSESSMENT: Shireen Silva is a 50 y.o. Female with bipolar I disorder, most recent episode depressed. Her symptoms are minimally changed. She continues to struggle with depressive symptoms, notably low mood and amotivation, as well as fatigue. She also finds coping with her stressors difficult, and as a consequence seems to be increasing her intake of EtOH. We discussed the negative destabilizing effect of EtOH on bipolar disorder, and suggested that she should eliminate this entirely if possible. She agrees to not drink any more for now. Her lithium level is sub-therapeutic today (0.62). She asserts that she has been compliant with the lithium for the past week. We discussed that with a sub- therapeutic level we would not be comfortableraising the dose of Prozac, particularly since it was at 30 mg that she began to have activation last spring. She is resistant to a further increase in the lithium dosage for now, so we discussed making no medication changes for now, but focusing on eliminating the EtOH (as this is likely to have a positive effect on her mood stability). She is in agreement with that plan. Also encouraged patient to pursue finding a therapist in her region, since therapy work could be beneficial for her depressive symptoms without the risk of conversion to diana anti-depressant treatmentcarries. PLAN: Continue current medications without adjustment Patient to stop drinking Patient agrees to look into finding a therapist RTC in 4 weeks Patient Instruction/Education provided: Patient provided verbal instructions regarding treatment plan. Patient understands the plan? Yes documented in this encounter Plan of Treatment Upcoming Encounters Date Type Specialty Care Team Description 06/30/2022 TH Visit (TeleHealth) Psychiatry Ashtyn Joseph APRN [facility] [address] [place], [place] [address] (Wo rk) documented as of this encounter Visit Diagnoses Diagnosis Bipolar disorder, in partial remission, most recent episode depressed Bipolar I disorder, most recent episode (or current) depressed, in partial or unspecified remission documented in this encounter Care Teams Eligibility Consultant Relationship Specialty Start Date End Date Marlin Miramontes APRN PCP - General 06/14/13 01/25/17 documented as of this encounter
--- OUTSIDE RECORDS SUMMARY | 2022-05-26 22:02 | XMS_ITS | Encounter Summary ---
:1965 Author Organization [facility] [place] [address] Care Team Providers Name Role Phone Marlin Miramontes APRN Primary Care Provider Reason for Referral Psychiatric (Routine) - Closed Specialty Diagnoses / Procedures Referred By Contact Refer red To Contact Psychiatry Diagnoses Bipolar disorder, most recent episode depressed, remission status unspecified Rupali Palomo MD [facility] 5[facility] [place] [address] [place] [address] Referral ID Status Reason Start Date Expiration Date Visits V isits Requested Authorized [id number] Closed Assume 04/30/2015 04/29/2016 3 3 Subset of Care Encounter Details Date Type Department Care Team Description 04/30/2015 Office Visit Psychiatry and Rupali Palomo, Bipolar disorder, most Behavioral Health at MD recent episode [facility] depressed, remission [facility] DR status unspecified [facility] PSYCHIATRY DEPT (Primary Dx) [place], [place] [phone] Social History Tobacco Use Types Packs/Day Years Used Date Never Smoker Alcohol Use Standard Drinks/Week Comments No 0 (1 standard drink = 0.6 oz pure alcoho l) Sex Assigned at Date Recorded Female 02/11/2021 8:25 PM EDT documented as of this encounter Last Filed Vital Signs Vital Sign Reading Time Taken Comments Blood Pressure 123/59 05/08/2015 12:59 PM EDT Pulse 58 05/08/2015 12:59 PM EDT Temperature - - Respiratory Rate - - Oxygen Saturation - - Inhaled Oxygen Concentration - - Weight 65.6 kg (144 lb 9.6 oz) 05/08/2015 12:59 PM EDT Height 167.6 cm (5' 6) 05/08/2015 12:59 PM EDT Body Mass Index 23.34 05/08/2015 12:59 PM EDT documented in this encounter Patient Instructions Patient InstructionsRupali Palomo MD - 04/30/2015 10:22 AM EDT Fluoxetine taper: - Decrease to 20 mg for a few days to 1 week. - Then to 10 mg for a few days to 1 week and STOP. documented in this encounter Progress Notes Zhanna Lorenzo MD - 05/16/2015 12:47 PM EDT PSYCHIATRY TEACHING PHYSICIAN INVOLVEMENT Location: [...] as documented. Major issues addressed/discussed: We reviewed her symptoms and recent stressors. Taken together, we concluded that it was likely the higher dose of fluoxetine has precipitated a mixed hypomanic state. She did not want to make more than one change at a time, so the first step will be to stop the fluoxetine. She is to call as needed. Most recent lithium level is 0.58. We considered an increase in lithium, but she rejected this given her experience of feeling cloudy on doses higher than current 600 mg twice daily. Additional comments: none Rupali Palomo MD - 04/30/2015 9:59 AM EDT ESTABLISHED ADULT PATIENT OFFICE VISIT NOTE Time Spent: 30 minutes Attendee(s): Patient, this typewriter assembly and parts inspector. This patient was seen with Dr. Zhanna Lorenzo. See her note for confirmatory and/or revisionary documentation. HISTORY Chief Complaint: Shireen Silva is a 50 y.o. woman who presents today for follow-up of her mood disorder. HPI: () Since last seen in clinic, Shireen recalled that we'd upped the Fluoxetine 30 mg and I kind of want tostop. When asked why, she explained, I'm getting more done, I'm creative, I've been writing a lot but my mind is all over the place.... I journal and I take a little of what I've written and turn it into a story.... A lot of times, I've always wanted to do that, but it was always some day, some day. She admitted, I'd hate to lose that. However, she noted, I've had a very stressful spring, my had a heart attack and was here for a while. But we had a sudden financial windfall and we werestruggling. This typewriter assembly and parts inspector asked if she'd felt manic and Shireen replied, I've not been overspending. [It's] hard to say if I'm overdoing anything else. She said her mood feels all over the place and endorsed having a lot of dark thoughts, passing, tends to, like I'm driving and I could just crash my car but I don't want to hurt anyone. She noted, I guess the thing that confuses me, the stress I'vebeen under, and I don't know if it's the medicine and the stress and sometimes I feel really depressed. In terms of other psychiatric symptoms, she observed, I kind of have had a few instances of wanting to cut but I haven't, and she'd had no thoughts of harming others. This typewriter assembly and parts inspector asked about hallucinations and Shireen mused that she sometimes hears music still, but no voices and no visual hallucinations. She said, my anxiety has been a little more and endorsed having had a panic attack on waking up a few days ago. Otherwise she reported that she slept pretty well and still takes the Zolpidem as needed. Her appetite has been fine. This typewriter assembly and parts inspector asked if Shireen felt it would be helpful to return to the lower dose of Fluoxetine, given that she'd had this increased energy and goal-directed thinking. She replied, I want to stop, it didn't do much until we increased it. We reviewed past medications that Shireen had tried for depression and she recalled having been on Venlafaxine, Citalopram, and Lamotrigine, but did not recall what happened with the last of these. On higher doses of Steinauer, she'd felt slower, and she was not sure what had happened when she'd been on higher doses of Bupropion previously, but thought she might have felt better. Her son had found Escitalopram helpful for his anxiety and depression, but we did not think it would be a good option given her lack of response to Citalopram in the past. We mentioned adding other mood stabilizers and Shireen remarked that she could never take Depakote because of weight gain, and that she didn't do well on Oxcarbazepine, but that she might be willing to consider a trial of Carbamazepine or Topiramate as those were new to her. This typewriter assembly and parts inspector asked if Shireen was seeing a therapist and she replied that she wasn't, adding I know it's something I need to address, therapy, but [place]. She was amenable to having this typewriter assembly and parts inspector place a referral for therapy here. Most recent labs: Component Latest Ref Rng 04/17/2015 06/12/2014 Calcium 8.7 - 10.7 8.6 (A) 9.3 Glucose Lvl 77 91 BUN 11 14 Creatinine 0.9 1 Sodium 137 - 147 144 140 Potassium 3.4 - 5.3 4.3 4.1 Chloride 99 - 108 107 105 CO2 22 - 29 27 28 Steinauer Lvl 0.58 (L) 0.61 TSH 1.01 1.48 Quality: In terms of depression, seems improved and reports better energy and creativity, but also ongoing dysphoria, anxiety, and feeling all over the place. Severity: Based on PHQ9, moderate depression (improved from last visit, where she had moderate severe depression). No active SI and no HI; no clear hypo/diana and no cutting. Endorsed passive suicidal ideation without intent or specific plan (impulsive, fleeting) and also urges to cut herself. Has been hearing music that no one else perceives from time to time but nothing distressing. Duration: Since increase of Fluoxetine. Timing: No temporal component specified, but seems more problematic during the day. Context: Feels mood has worsened since we increased Fluoxetine but also has noticed more creativity and greater desire to engage in writing, which she enjoys. Modifying factors: Fluoxetine at current dose makes her feel unsettled and perhaps a little overstimulated, but not effective at lower doses. Willing to consider referral to psychotherapy here despite living an hour and 15 minutes away (preferable to trying to find a new provider in a small town). Associated S&S: Sleeping pretty well. Appetite is fine. Most recent PHQ9: PHQ9 04/27/2015 Little interest or pleasure More than half the days Down, depressed, hopeless More than half the days Trouble sleeping Several days Tired or no energy More than half the days Poor appetite or overeating Several days Feeling like a failure Several days Trouble concentrating (newspaper) Several days Moving or speaking slowly Not at all Would be better off Not at all PHQ9 Scores 10 (Moderate Depression) Current Medications: Current Outpatient Prescriptions Medication Sig Dispense Refill ??? buPROPion (WELLBUTRIN XL) 300 mg Tablet Sustained Release 24 hr Take 1 tablet by mouth every morning. 30 tablet 5 ??? FLUoxetine (PROZAC) 10 mg Tablet Take [...] 3 ??? UNABLE TO FIND Med Name: Vendigi Body protein shakes. Per website, each contains [...] Pomegranate, Blueberry, Ramya hips, Apple pectin. ??? fexofenadine (OVIDIO) 60 mg tablet Take [...] felt crazy). Review of Systems: (12/01/09) Constitutional: Appetite is fine. Sleeping pretty well. Eyes: Not wearing corrective lenses. ENT: Cardiovascular: No chest pain. Respiratory: No shortness of breath. GI: No nausea, vomiting, constipation or diarrhea. : No urinary problems, Musculoskeletal: No pain. Integumentary: Neurological: No seizures or headaches. Psychiatric: See HPI above. Endocrine: History of thyroid cyst. Hematologic/Lymphatic: Allergic/Immunological: See reviewed medication allergies; having difficulty with seasonal allergies. PFSH: () Past Medical/Psychiatric History: #Prior diagnoses - Bipolar 1 disorder (mixed, manic, depressed); says diana consisted of increased spending and would last a few days. Generalized anxiety disorder. Borderline traits. #Prior Hospitalizations - None endorsed. [facility] and had seen Karen Mallory in [facility] (therapist) for years. Currently under the care of Harsh Carranza in [place], [place] (for the past 1 year). Update (04/30/15) - Not currently seeing a therapist (has trouble finding a provider in a small town). #Prior Suicide attempts - None endorsed. Does have history of cutting arms to relieve anxiety and not as suicidal gesture. Last cutting was 6 months ago. #Prior Medication trials - Citalopram, Venlafaxine, Fluoxetine (drove into diana in 2004), Oxcarbazepine (at high doses caused dizziness, fogginess, nausea, and worsened acne), Risperidone (helped withmood but reported to have caused a rash), Steinauer (Eskalith, current medication), Bupropion XL (current medication), Eszopiclone (ineffective for sleep), Oxazepam (ineffective for anxiety), Clonazepam,Zolpidem (current medication). Update (10/02) - Takes Vendigi Body shakes and finds them helpful. Based on the contents (per the [employer] website and see Medication List), some drug- drug interactions need to be monitored. - Ashwagandha can be sedating when used with DIAMOND SIZER depressants (i.e. Clonazepam), and can increase thyroid hormone levels. - Astragalus can cause increases in serum Steinauer level. - Reishi mushrooms can slow clotting and cause hypotension. - Schisandra can worsen GERD symptoms and interfere with metabolism via the 2C9 and 3A4 [id number] enzymes. Family Psychiatric and Medical History: Brother with alcohol use disorder, possible Bipolar disorder. Paternal grandmother with unknown psychiatric diagnosis but history of psychiatric hospitalization.Paternal uncle and cousins with unknown psychiatric diagnoses but multiple suicide attempts. Social History: Born in [facility]; has 1 older brother and 2 older sisters. Has a bachelor's degree in Psychology. Had first manic episode per report in college, lasting 2-3 months. 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 Currently lives in [place], [place] with her . Has three sons (aged 13, 20, and 22) all living at home; youngest has been recipient of psychiatric care at [facility] for years for behavioral disturbance. was deployed [...] Update (02/26/15) Drinking more wine than usual. 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 Spring was stressful as was at [facility] following a heart attack but things have improved recently as they received a financial windfall. EXAM [05/08/14 bullets (incl VS)] Constitutional System ? Vital Signs: Blood pressure 123/59, pulse 58, height 167.6 cm (5' 6), weight 65.59 kg (144 lb 9.6oz). Musculoskeletal System ? Muscle Strength/Tone (note atrophy, [...] No homicidal or violent ideation. Suicidality: No active suicidal thoughts. Some fleeting dark thoughts but no intent to act on them. Hallucinations: No visual hallucinations endorsed or observed. Reports occasionally hearing music but nothing distressing and not observed to be hearing it now. Delusions: No paranoid, grandiose, or guilty ideation. Obsessions: None endorsed. ? Judgment and Insight: Insight is fair. Judgment is fair to good. ? Mood & Affect: Mood is all over the place. Affect is constricted, anxious, mood-congruent. ? Orientation: Grossly oriented to self, date, location, situation. ? Attention/Concentration: Attends to conversation, answers questions appropriately. Does not seem to be responding to internal stimuli. ? Memory: No gross deficits in recent or remote recall. ? Language: Normal Azeri. No word-finding difficulties. ? Fund of Knowledge: Seems appropriate for age and experience. Psychotherapeutic Interventions and Response: Active listening, with positive response. MEDICAL DECISION MAKING ASSESSMENT: Shireen Silva is a 50 y.o. woman with a history of the diagnosis of Bipolar 1 disorder,most recent episode depressed and MALVIN. Since we increased her Fluoxetine to 30 mg, Shireen endorsed improved energy and greater creativity, but says her moods are all over the place and she continues tohave intermittent dark thoughts with urges to cut, but no active suicidal or homicidal thoughts and no self-injury. Her anxiety is high and she has occasional panic attacks. She remains somewhat diagnostically murky but given long-term Bipolar diagnosis, increased goal-directed activity and energy as Fluoxetine was increased, she is concerning for an unspecified Bipolar disorder, in depressed or mixed state. As she feels more discomfort on the higher dose of Fluoxetine and that the lower dose was less effective, she requested to stop this medication entirely, which seems reasonable to do. Should her symptoms worsen or if she should present as more clearly hypo/manic or mixed, we discussed other options for managing depression and for mood stabilization, including returning to Lamotrigine or trying Carbamazepine or Topiramate. Shireen was willing to consider these if necessary but preferred not tostart anything else now. We also discussed a potential role for CBT in helping her to manage her depression, anxiety, and suicidal thoughts and Shireen agreed to a referral to a therapist here. Since this was our last visit together, we reviewed options for follow-up and Shireen chose to remain in Dr. Lorenzo's clinic with Dr. Javed Wolfe and will return to clinic in May. PLAN: Safety Risk Management: No SI or HI. Risk factors include some relationship strain, impulsivity. Protective factors include family, therapeutic alliance with a health care provider, and future plans. Continue current medication(s) with the following changes: - Taper Fluoxetine per patient instructions (decrease to 20 mg for few days to 1 week, then to 10 mgfor few days to 1 week, then STOP). - If depression worsens or she develops mixed/manic symptoms, consider retrial of Lamotrigine or newtrial of Carbamazepine. We reviewed the risks of blood dyscrasias and liver function abnormalities with the latter medication. Topiramate was also discussed for mood stabilization (and lack of associated weight gain) and we reviewed importance of slow up-titration to avoid mental fogginess. Labs ordered: None today. Referrals: CBT for skills with anxiety and depression. Patient Instruction/Education provided: Patient provided verbal instructions regarding plan of care. Patient understands the plan? Yes Rupali Palomo MD Pager [phone] documented in this encounter Plan of Treatment Upcoming Encounters Date Type Specialty Care Team Description 06/30/2022 TH Visit (TeleHealth) Psychiatry Ashtyn Joseph APRN [facility] MEDICAL [facility] [address] [place], [place] [address] (Wo rk) Scheduled Referrals Name Type Priority Associated Diagnoses Order S chedule Referral to Outpatient Referral Routine Bipolar disorder, Ord ered: Psychiatry most recent episode 04/30/20 15 depressed, remission status unspecified documented as of this encounter Visit Diagnoses Diagnosis Bipolar disorder, most recent episode de pressed, remission status unspecified - Primary documented in this encounter Care Teams Director Life Sciences Relationship Specialty Start Date End Date Marlin Miramontes APRN PCP - General 06/14/13 01/25/17 documented as of this encounter
--- OUTSIDE RECORDS SUMMARY | 2022-05-26 22:02 | XMS_ITS | Encounter Summary ---
:1965 Author Organization [facility] [place] [address] Care Team Providers Name Role Phone Ayana Lai MD Primary Care Provider Reason for Visit Reason Comments Bipolar Disorder Encounter Details Date Type Department Care Team Description 03/19/2011 Office Visit Psychiatry and Marlen Morocho [place] affective [facility] at [place] disorder, currently [facility] PSYCHIATRY DEPT. depressed, mild [facility] (Pr imary Dx) [address] [place] [phone] Social History Tobacco Use Types Packs/Day Years Used Date Never Smoker Alcohol Use Standard Drinks/Week Comments No 0 (1 standard drink = 0.6 oz pure alcoho l) Sex Assigned at Date Recorded Female 02/11/2021 8:25 PM EDT documented as of this encounter Progress Notes Justus Quinteros MD - 03/19/2011 2:58 PM EDT I saw and evaluated the patient with the resident. I reviewed the patient???s history during the visit and I agree with the above details with the following exceptions, corrections, &/or additional findings: Thinks she's better than last time, partly from working with mindfulness (on her own, with therapist). My exam confirms the resident? s findings with the following exceptions, corrections, &/or additional findings: Quiet, pleasant affect. The assessment and plan were formulated in discussion with me and I agree with them with the following exceptions, corrections, &/or additional findings: 45 y.o. female with BPAD I-Dep-Mild, MALVIN, past d/o Borderline Traits. Doing OK on current meds. 1) Continue current meds. *Coordination of Care: Pt. requests no notes to Dr. Carlos Bell (PCP) (not Ayana Lai MD) (pt. understands that this will continue until/less s/he requests otherwise) Marlen Morocho MD - 03/19/2011 2:37 PM EDT MEDICATION MANAGEMENT NOTE Location: [ x ] Office [ ] Facility Time Spent: 30 min Attendee(s): [ x ] Patient [ ] Family members (identify by relationship to pt.) [ ] Other (identity by relationship to pt.) PCP: Ayana Lai MD [facility] [address] [place] [id number] This patient was: [ x ] seen with / [ x] discussed with teaching faculty Dr. Aldair M.D.; see his/her note for confirmatory and/or revisionary documentation. Identifying data: Ms. 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 Current Status / Interval History: Pt is here for f/up. Stated she is feeling better, less depressed, anxiety is about the same, no panic attacks. She can deal with sx's better and has been using mindfulness skills for that. Recently during a stressful event, she was able to talk to her and felt better, did not need to take meds. Family stressors are about the same, dad is still sick in [place], children are ok, she feels that she can deal with things better now. No SI/HI. No alc or substance use. Cont. with therapist. Wants to cont. current meds. She will be scheduled with a new resident and she can and will call for help if needed - has ES numbers nd therapist. Adherence to Medication plan: adherent to medication regiment OBJECTIVE: Meds- reviewed ADR/ALLERGIES: No Known Allergies New Medications Since Last Visit (Include OTC/Herbal remedies): none Alcohol/Drug Use: [x ] No [ ] Yes (specify type, amt. & frequency): Psychotherapy: ( ) not enrolled, ( x) enrolled (as of last year); Therapist [facility], q 3 weeks, has therapist number to call at her home if needed for additional support. Pertinent Psychiatric/Mental Status Exam General/Behavior: pleasant, cooperative, good eye contact, looks less anxious today Speech: normal prosody Mood: better Affect: calm, congruent Associations: tight Thought Process: linear, goal-directed Abnormal/Psychotic Thoughts: denies suicidal thoughts/HI, no psychosis noted Judgment: fair Insight: fair Orientation: person, place, situation Attention/Concentration: good Medical Status: stable Physical Assessment (if applicable): n/a ASSESSMENT: 45 years woman with previous dx of BPAD (MRE mixed - unspecified) and MALVIN currently feels better. Wants to cont. Current meds w/o changes. Pt will f/up in 3 ms with a new resident and call if questions/concerns. (Improvement since last visit): [ ] Markedly Improved [ ] Moderately Improved [ x ] Minimally Improved [ ] No Change [ ] Minimally Worse [ ] Much Worse Diagnosis: BPAD I, MRE dep- mild (296.51), MALVIN by hx PLAN: 1. Medication changes: none, cont. current medication. 2. Safety Risk Management: Patient denies SI/HI. Patient has contact number for emergency services. 3. F/up in 3 ms or sooner if needed 4. Discussed transfer to a different provider next time 5. Referral for additional services: none, pt has therapist and can also call her for additional support if needed 6. Other - pt will cont using mindfulness skills Patient Instruction/Education Provided (required): verbal, regarding meds/therapy Next Appt: [3] ms Patient understands the plan? [ x ] Yes [ ] No (explain): CC: Pt. requests NO notes to PCP and no notes to the therapist (pt. understands that this will continue until/less s/he requests otherwise) Marlen Morocho MD PGY-4, #[id number] documented in this encounter Plan of Treatment Upcoming Encounters Date Type Specialty Care Team Description 06/30/2022 TH Visit (TeleHealth) Psychiatry Ashtyn Joseph, STATISTICAL PROGRAMMER [facility] [address] [place], [place] [address] (Wo rk) documented as of this encounter Visit Diagnoses Diagnosis Bipolar affective disorder, currently de pressed, mild - Primary Bipolar I disorder, most recent episode (or current) depressed, mild documented in this encounter Care Teams Perinatal Tech Relationship Specialty Start Date End Date Ayana Lai MD PCP - General 10/22/10 07/17/11 [address] [place] [address] documented as of this encounter
--- OUTSIDE RECORDS SUMMARY | 2022-05-26 22:02 | XMS_ITS | Encounter Summary ---
:1965 Author Organization [facility] [place] [address] Care Team Providers Name Role Phone Marlin Miramontes APRN Primary Care Provider Reason for Visit Reason Onset Date Comments Medication Refill 09/08/2013 Encounter Details Date Type Department Care Team Description 09/08/2013 Refill Psychiatry and Behavioral David Farias MD [facility] [place] [address] [place] [address] [phone] (Wo rk) Social History Tobacco Use Types [...] [facility] [address] [place], [place] [address] (Wo rk) documented as of this encounter Visit Diagnoses Not on filedocumented in this encounter Care Teams Lamina Searcher Relationship Specialty Start Date End Date Marlin Miramontes APRN PCP - General 06/14/13 01/25/17 (work) documented as of this encounter
--- OUTSIDE RECORDS SUMMARY | 2022-05-26 22:02 | XMS_ITS | Encounter Summary ---
:1965 Author Organization [facility] [address] Care Team Providers Name Role Phone Ayana Lai MD Primary Care Provider Reason for Visit Reason Comments Bipolar Disorder Encounter Details Date Type Department Care Team Description 12/17/2011 Office Visit Psychiatry and Wendy Farias MD Bipolar disorder, most Behavioral Health at [facility] r ecent episode [facility] depressed (Primary Dx) [facility] [place] [address] [place] [phone] (Work) [phone] Social History Tobacco Use Types Packs/Day Years Used Date Never Smoker Alcohol Use Standard Drinks/Week Comments No 0 (1 standard drink = 0.6 oz pure alcoho l) Sex Assigned at Date Recorded Female 02/11/2021 8:25 PM EDT documented as of this encounter Progress Notes Wendy Farias MD - 12/17/2011 5:38 PM EST MED MANAGEMENT Med Management (CPT 10414 2009) Location: Office Time Spent: 30 minutes Attendee(s): Patient This patient was seen with Dr. Crawford. See his note for confirmatory and/or revisionary documentation. SUBJECTIVE: Chief complaint: Bipolar disorder, recent episode depressed without psychotic features Current Status/Interval History: Patient reporting some depressed mood secondary to financial and family stressors, but is coping better than before. Is reporting some sadness regarding nearing termination with therapist as she is retiring. Therapist did provide her with contact info for therapists inthe area and she plans to call them soon. Denies any manic or psychotic symptoms. No SI or HI. Patient reporting some increased anxiety but feels that oxazepam is not helpful in addressing acute anxiety and finds it also very sedating. Interested in another agent to use occasionally for acute anxiety management. No new medical issues and is tolerating lithium and wellbutrin to good effect. OBJECTIVE: Pertinent Mental Status Exam (relevant findings or changes): Speech: WNL. Mood: Sad.. Affect: Appropriate.. Associations: Intact.. Judgement: Good.. Thought Process: Linear Logical. Abnormal/Psychotic Thoughts: No SI or HI. No AVH or delusions. Orientation: person, place, time and situation. Attention/Concentration: Alert. Medical Status: [place] level 0.6 BMP and TFT wnl Medications: Wellbutrin XL 450mg qdaily Lithobid 900mg BID Serax 15mg TID PRN anxiety Ambien PRN insomnia ASSESSMENT (improvement since last visit): Ms. Silva is a 46 y/o F with PPHx significant for bipolar disorder who presents for medication management. Patient continues to endorse moderate depressive symptoms, but appears to be coping appropriately. Did discuss with patient alternative options for acute management of anxiety and agreed on low dose Ativan to be used sparingly. Patient planning to follow-up on therapist's suggestions for a new therapist as she is retiring. PLAN: ?? Continue Lithobid, Wellbutrin XL, and Ambien. ?? Discontinue Serax. ?? Start Ativan 0.5mg po qdaily PRN anxiety x 7 tablets. ?? Recheck BMP, TFT, and [place] level in 5 months. ?? Follow up in 5 months. Patient Instruction/Education provided: Patient provided verbal instructions regarding plan. Patient understands the plan? Stressed but managing. Td Crawford MD - 12/17/2011 3:03 PM EST [ ] I discussed this patient's situation with the resident but did not see the patient. I contributed to the formulation and treatment planning as documented above. I saw and evaluated the patient [x] with the resident. [ ] and discussed the case described above with the resident within 24 hours. I reviewed the patient???s history during the visit and [x] I agree with the details as written by the resident. [ ] I agree with the above details with the following exceptions, corrections, &/or additional findings: My exam [x] confirms the resident???s findings. [ ] confirms the resident? s findings with the following exceptions, corrections, &/or additional findings: The assessment and plan were formulated in discussion with me and [x] I agree with them as documented. [ ] I agree with them with the following exceptions, corrections, &/or additional findings: Major issues addressed/discussed: BPAD - at baseline - feels well. tolerating 1,800mg lithium well - no tremor, polyuria, polydypsia -labs Results for SHIREEN SILVA ( ) as of 12/17/2011 15:02 Ref. Range 07/18/2011 09:45 Sodium Latest Range: 135-145 mmol/L 141 Potassium Latest Range: 3.5-5.0 mmol/L 4.7 Chloride Latest Range: 98-107 mmol/L 108 (H) CO2 Latest Range: 22-31 mmol/L 26 Anion Gap Latest Range: 5-15 mmol/L 7 BUN Latest Range: 8-18 mg/dL 19 (H) Creatinine Latest Range: 0.70-1.20 mg/dL 0.78 Estimated GFR Latest Range: >=60 >60 Glucose Lvl Latest Range: 60-199 mg/dL 100 Calcium Latest Range: 8.5-10.5 mg/dL 9.5 [place] Lvl No range found 0.60 T3, Total Latest Range: 75-170 ng/dL 82 T4, total Latest Range: 5.1-10.8 mcg/dL 6.6 TSH Latest Range: 0.27-4.20 mcIU/mL 1.95 - no changes. - f/u 6 months - repeat labs then documented in this encounter Plan of Treatment Upcoming Encounters Date Type Specialty Care Team Description 06/30/2022 TH Visit (TeleHealth) Psychiatry Ashtyn Joseph, SUPERVISOR [facility] [address] [place], [place] [address] (Wo rk) documented as of this encounter Visit Diagnoses Diagnosis Bipolar disorder, most recent episode de pressed - Primary Bipolar I disorder, most recent episode (or current) depressed, unspecified documented in this encounter Care Teams Flat Machine Cutter Relationship Specialty Start Date End Date Ayana Lai MD PCP - General 07/18/11 03/29/13 [address] [place] [address] documented as of this encounter
--- OUTSIDE RECORDS SUMMARY | 2022-05-26 22:02 | XMS_ITS | Encounter Summary ---
:1965 Author Organization [facility] [place] [address] Care Team Providers Name Role Phone Ayana Lai MD Primary Care Provider Encounter Details Date Type Department Care Team Description 07/18/2011 Hospital Encounter Laboratory Amari Bob Bipolar affective [facility] MD Luis disorder [facility] [id number] PSYCHIATRY DEPT. [phone] [place] [address] Social History Tobacco Use Types Packs/Day Years Used Date Never Smoker Alcohol Use Standard Drinks/Week Comments No 0 (1 standard drink = 0.6 oz pure alcoho l) Sex Assigned at Date Recorded Female 02/11/2021 8:25 PM EDT documented as of this encounter Medications at Time of Discharge Medication Sig Dispensed Refills Start Date End Date buPROPion (WELLBUTRIN Take 3 tablets by 90 tablet 2 011 09/19/2011 XL) 150 mg 24 hr tablet mouth every morning. lithium (LITHOBID) 300 Take 3 tablets by 180 tablet 2 201009/10/2011 mg CR tablet mouth 2 times daily. zolpidem (AMBIEN) 10 mg Take 1 tablet by 30 tablet 1 201007/29/2011 tablet mouth nightly. oxazepam (SERAX) 15 mg 15 MG = 1 0 02/12/2011 capsule Capsule(s), PO, Three times daily PRN documented as of this encounter Plan of Treatment Upcoming Encounters Date Type Specialty Care Team Description 06/30/2022 TH Visit (TeleHealth) Psychiatry Ashtyn Joseph, [facility] PSYCHIATRY [place], [place] [address] (Wo rk) documented as of this encounter Procedures Procedure Name Priority Date/Time Associated Diagnosis Comme nts T3 TOTAL Routine 07/18/2011 9:45 AM Bipolar affective Resu lts for this EDT disorder procedure are i n the results section. TSH Routine 07/18/2011 9:45 AM Bipolar affective Resu lts for this EDT disorder procedure are i n the results section. T4 TOTAL Routine 07/18/2011 9:45 AM Bipolar affective Resu lts for this EDT disorder procedure are i n the results section. LITHIUM LEVEL Routine 07/18/2011 9:45 AM Bipolar affective Res ults for this EDT disorder procedure are i n the results section. BASIC METABOLIC Routine 07/18/2011 9:45 AM Bipolar affective R esults for this PANEL (NON-FASTING) EDT disorder procedur e are in the results section. documented in this encounter Results [place] level (07/18/2011 9:45 AM EDT) P athologist Signature [place] Lvl 0.60 mmol/L [facility] Comment: Therapeutic level for bipolar depression : [...] Organization Address City/State/[place] [address] CERNER MILLENNIUM (ABNORMAL) Basic [...] Bob MD CHEMISTRY ORDERABLES Performing Organization Address City/[facility] Phon e Number [address] CERNER MILLENNIUM T3 (07/18/2011 9:45 AM EDT) P athologist Signature T3, Total 82 75 - 170 CERNER ng/dL [facility] Specimen Anatomical Collection Method Collection Time Receive d Time (Source) Location / / Volume Laterality Blood specimen 07/18/2011 9:45 AM 011 9:54 (specimen) EDT AM EDT Amari Bob MD CHEMISTRY ORDERABLES Performing Organization Address [facility] Phon e Number [address] CERNER MILLENNIUM T4 (07/18/2011 9:45 AM EDT) athologist Signature T4, total 6.6 5.1 - 10.8 CERNER mcg/dL [facility] Comment: Reference Range: Cord Blood: ??6.9-14.4 mcg/dL Females: ??7.2-14.2 mcg/dL Pediatric ranges: ??Interpret with cauti on-ranges have not been verified Specimen Anatomical Collection Method Collection Time Receive d Time (Source) Location / / Volume Laterality Blood specimen 07/18/2011 9:45 AM 011 9:54 (specimen) EDT AM EDT Amari Bob MD CHEMISTRY ORDERABLES Performing Organization Address City/[facility] Phon e Number [address] CERNER MILLENNIUM TSH (07/18/2011 9:45 AM EDT) P athologist Signature TSH 1.95 0.27 - 4.20 CERNER mcIU/mL MILLENNIUM Specimen Anatomical Collection Method Collection Time Receive d Time (Source) Location / / Volume Laterality Blood specimen 07/18/2011 9:45 AM 011 9:54 (specimen) EDT AM EDT Amari Bob MD CHEMISTRY ORDERABLES Performing Organization Address City/State/ZIP Code Phon e Number [place] [phone] [facility] [address] CERNER MILLENNIUM documented in this encounter Visit Diagnoses Diagnosis Bipolar affective disorder Bipolar disorder, unspecified documented in this encounter Care Teams Retail Field Merchandiser Relationship Specialty Start Date End Date Ayana Lai MD PCP - General 07/18/11 03/29/13 [address] [place] [address] documented as of this encounter
--- OUTSIDE RECORDS SUMMARY | 2022-05-26 22:02 | XMS_ITS | Encounter Summary ---
:1965 Author Organization [facility] [place] [address] Care Team Providers Name Role Phone Ayana Lai MD Primary Care Provider Encounter Details Date Type Department Care Team Description 11/13/2010 Office Visit Psychiatry and Behavioral Marlen Morocho MD [facility] [place]RY [place]PT[place] [address] [place] [address] Social History Tobacco Use Types Packs/Day Years Used Date Never Assessed Sex Assigned at Date Recorded Female 02/11/2021 8:25 PM EDT documented as of this encounter Plan of Treatment Upcoming Encounters Date Type Specialty Care Team Description 06/30/2022 TH Visit (TeleHealth) Psychiatry Ashtyn Joseph, SENIOR CORPORATE ACCOUNTANT [facility] [address] [place], [place] [address] (Wo rk) documented as of this encounter Visit Diagnoses Not on filedocumented in this encounter Care Teams Music Composition Teacher Relationship Specialty Start Date End Date Ayana Lai MD PCP - General 10/22/10 07/17/11 [address] [place], [place] [id number] documented as of this encounter
--- OUTSIDE RECORDS SUMMARY | 2022-05-26 22:02 | XMS_ITS | Encounter Summary ---
:1965 Author Organization [facility] [place] [address] Care Team Providers Name Role Phone Ayana Lai MD Primary Care Provider Encounter Details Date Type Department Care Team Description 08/17/2012 Hospital Encounter Laboratory Wendy Farias MD Medication adverse [facility] [address] [place] PSYCHIATRY DEPT. [address] [place], [place] [phone] [address] Social History Tobacco Use Types Packs/Day Years Used Date Never Smoker Alcohol Use Standard Drinks/Week Comments No 0 (1 standard drink = 0.6 oz pure alcoho l) Sex Assigned at Date Recorded Female 02/11/2021 8:25 PM EDT documented as of this encounter Medications at Time of Discharge Medication Sig Dispensed Refills Start Date End Date zolpidem (AMBIEN) 10 mg Take 1 tablet by 30 tablet 2 201111/16/2012 tablet mouth nightly as needed for Sleep. lithium (ESKALITH) 450 Take 2 tablets by 120 tablet 5 201103/15/2013 mg CR tablet mouth 2 times daily. buPROPion (WELLBUTRIN Take 3 tablets by 90 tablet 5 012 01/19/2013 XL) 150 mg 24 hr tablet mouth every morning. documented as of this encounter Plan of Treatment Upcoming Encounters Date Type Specialty Care Team Description 06/30/2022 TH Visit (TeleHealth) Psychiatry Ashtyn Joseph APRN [facility] [address] [place], [place] [address] (Wo rk) documented as of this encounter Procedures Procedure Name Priority Date/Time Associated Diagnosis Comme nts PTH Routine 08/17/2012 2:31 PM Medication adverse Res ults for this EDT effect procedure are i n the results section. TSH Routine 08/17/2012 2:31 PM Medication adverse Res ults for this EDT effect procedure are i n the results section. LITHIUM LEVEL Routine 08/17/2012 2:31 PM Medication adverse Re sults for this EDT effect procedure are i n the results section. BASIC METABOLIC Routine 08/17/2012 2:31 PM Result s for this PANEL (NON-FASTING) EDT procedur e are in the results section. documented in this encounter Results (ABNORMAL) BASIC METABOLIC PANEL (NON-FASTING) (08/17/2012 2:31 PM EDT) P athologist Signature Glucose Lvl 93 60 - 199 CERNER mg/dL MILLENNIUM Comment: Diabetes: >=200 mg/dL plus symp toms BUN 14 8 - 18 mg/dL CERNER MILLENNIUM Creatinine 0.95 0.70 - 1.20 mg/dL CERNER MILL ENNIUM Comment: Please note that the pediatric reference intervals supplied above were not validated at [facility]. Results from pediatri c patients should be interpreted in conjunction to the patient's age, height and muscle mass. Sodium 141 135 - 145 mmol/L CERNER MELIZA NIUM Potassium 3.4 (L) 3.5 - 5.0 mmol/L CERNER MELIZA NIUM Comment: Please note: ??Patients with WBC >100,00 0 may have falsely elevated Potassium levels. ??For accurate Potassium quantif ication in these patients send serum separator tube (gold top) for subsequent determinations. ??Contact the Clinical Chemistry Laboratory if there are any qu estions. Chloride 105 98 - 107 mmol/L CERNER MILLENN IUM CO2 27 22 - 31 mmol/L CERNER MILLENNI UM Anion Gap 9 5 - 15 mmol/L CERNER MILLENNIU M Calcium 9.6 8.5 - 10.5 mg/dL CERNER MELIZA NIUM [...] week). For patient s multiply eGFR by 1.2. The MDRD equation was developed using patients be tween the ages of 18 and 70 years. ?? The MDRD equation has not been validated for patients < 18 years of age and should not be used to assess renal function in the pediatric population. ??The MDRD eGFR equation will also overestimate the true GFR of patients above the age of 70. ??This overestimation is variable bu t increases with age. At present, NKDEP does NOT recommend usi [...] kidney disease. References: http://nkdep.nih.gov/resources/NKDEP_Sug gestn4Labs_0606_508.pdf http://www.kidney.org/professionals/kls/ pdf/faq_gfr.pdf Oneyda K, Jagdeep NA, Jitendra AK, Surjit TS, Efrain AD, Ethel CHETAN. Relative performance of the MDRD and CKD-EPI equa tions for estimating glomerular filtration rate among patients with vari ed clinical presentations. Clin J Am Soc Nephrol;6:1963-72. Specimen Anatomical Collection Method Collection Time Receive d Time (Source) Location / / Volume Laterality Blood specimen 08/17/2012 2:31 PM 012 2:44 (specimen) EDT PM EDT Resulting Agency Comment Spec In Lab Don Wright MD CHEMISTRY ORDERABLES Performing Organization Address City/State/ZIP Code Phon e Number [address] CERNER MILLENNIUM PTH (08/17/2012 2:31 PM EDT) athologist Signature PTH 44 15 - 65 CERNER pg/mL MILLENNIUM Specimen Anatomical Collection Method Collection Time Receive d Time (Source) Location / / Volume Laterality Blood specimen 08/17/2012 2:31 PM 012 2:44 (specimen) EDT PM EDT Resulting Agency Comment Spec In Lab Don Wright MD CHEMISTRY ORDERABLES Performing Organization Address City/[facility]/ZIP Code Phon e Number [address] [facility] TSH (08/17/2012 2:31 PM EDT) athologist Signature TSH 2.19 0.27 - 4.20 CERNER mcIU/mL MILLENNIUM Specimen Anatomical Collection Method Collection Time Receive d Time (Source) Location / / Volume Laterality Blood specimen 08/17/2012 2:31 PM 012 2:44 (specimen) EDT PM EDT Resulting Agency Comment Spec In Lab Don Wright MD CHEMISTRY ORDERABLES Performing Organization Address City/[facility]/ZIP Code Phon e Number [address] [facility] [place] level (08/17/2012 2:31 PM EDT) athologist Signature [place] Lvl 0.80 mmol/L CERNER MILLENNIUM Comment: Therapeutic level for bipolar depression : 0.60-1.20 mmol/L Action Level: ?? Acute toxicity: ?>4.00 mmol/L ?? Chronic toxicity: ??>1.50 mmol/L Values greater than or equal to the acti on level necessitate clinical intervention. ??Values less than this le reaann may necessitate intervention based on clinical condition of the patient. Ref: ??Gerald walton Toxicologic Emergencies 6th ed 1997; p . 967 Specimen Anatomical Collection Method Collection Time Receive d Time (Source) Location / / Volume Laterality Blood specimen 08/17/2012 2:31 PM 012 2:44 (specimen) EDT PM EDT Resulting Agency Comment Spec In Lab Don Wright MD CHEMISTRY ORDERABLES Performing Organization Address City/State/[place] [address] [facility] documented in this encounter Visit Diagnoses Diagnosis Medication adverse effect Unspecified adverse effect of unspecifie d drug, medicinal and biological substance documented in this encounter Care Teams Screw Machine Operator Relationship Specialty Start Date End Date Ayana Lai MD PCP - General 07/18/11 03/29/13 [address] [place] [address] documented as of this encounter
--- OUTSIDE RECORDS SUMMARY | 2022-05-26 22:02 | XMS_ITS | Encounter Summary ---
:1965 Author Organization [facility] [place] [address] Care Team Providers Name Role Phone Marlin Miramontes DANNA Primary Care Provider Reason for Visit Reason Comments Establish Care Encounter Details Date Type Department Care Team Description 08/09/2013 Office Visit Psychiatry and Rupali Palomo, Bipolar disorder Behavioral Health at [facility] (Primary Dx) [facility] [address] PSYCHIATRY DEPT [place] [phone] Social History Tobacco Use Types Packs/Day Years Used Date Never Smoker Alcohol Use Standard Drinks/Week Comments No 0 (1 standard drink = 0.6 oz pure alcoho l) Sex Assigned at Date Recorded Female 02/11/2021 8:25 PM EDT documented as of this encounter Last Filed Vital Signs Vital Sign Reading Time Taken Comments Blood Pressure 107/78 08/11/2013 3:26 PM EDT Pulse 80 08/11/2013 3:26 PM EDT Temperature - - Respiratory Rate 20 08/11/2013 3:26 PM EDT Oxygen Saturation - - Inhaled Oxygen Concentration - - Weight - - Height - - Body Mass Index - - documented in this encounter Progress Notes Darryl Gonzales MD - 08/09/2013 3:23 PM EDT PSYCHIATRY TEACHING PHYSICIAN INVOLVEMENT Location: Office Attending Physician: Darryl Gonzales MD Resident name:Rupali Palomo MD I saw and evaluated the patient with the above named resident/ See their note for details. I reviewed the patient's history during the visit and I agree with the details as written. My exam confirms the resident's findings. The assessment and plan were formulated in discussion with me and I agree with them as documented. Major issues discussed: Pt with hx of BPAD On lithium for many years. No recent labs.Will get Li level, Thyroid function tests (had a cyst in the past); BUN, Cr. No med changes currently Labs to be done in [facility] and faxed to Dr. Palomo. Additional INformation Rupali Palomo MD - 08/09/2013 1:32 PM EDT ESTABLISHED ADULT PATIENT OFFICE VISIT NOTE Time Spent: 60 minutes Attendee(s): Patient, this headline writer This patient was seen with Dr. Darryl Gonzales. See his note for confirmatory and/or revisionary documentation. HISTORY Chief Complaint: Shireen Silva is a 48 y.o. woman who presents today to establish care with a new provider. HPI: () Ms. Silva is a 48 year old woman with a past history of Bipolar 1 disorder, Generalized Anxiety disorder, and Borderline traits, last seen in clinic by Dr. Wendy Farias on 03/15/13, here to establish care with this headline writer. Today, she reports that she is mostly troubled by allergy season, and that she has been trying Janice and Zyrtec. She smiles, adding that she's lived in [place] for 15 years and has still not acclimated. She is also bothered by a lot of PMS problems, with increased anger and feeling like her head is noisy, fuzzy, lasting roughly 1 week. At the time of this appointment, she is anticipating the imminent onset of her menstrual period, and has been coping with this. In addition, she says that she is generally more depressed when she is pre- menstrual, her mood slips a bit, but she tries to tell herself that this will pass. She does not endorse any suicidal or homicidal thoughts. Although she has a history of cutting, she last cut at least 6 months ago.... Before I kind of got help. She has not been manic ever, saying that she only had a short spell of minor hypomanialasting a few days once, and that she tends to be more depressed. Despite this, she reports sleepingthrough the night, her appetite is okay, and her energy is so-so... It depends on the day but is usually not great. Life at home seems to have stabilized somewhat, as per Ms. Silva, her has started seeinga therapist and has begun taking an anti-depressant. Her sons are all living at home and everyone seems to be getting along well. She has been seeing therapist Lottie Roberts in [place] for the past year and feels this is going well. In terms of her medications, she feels the [place] is helpful and has noted no side effects, however she has not had a level drawn in some time (last was measured at 0.4 per her recollection). She is wondering if some of her premenstrual upset could be secondary to thyroid dysregulation (specifically hyperthyroidism), as I've had all these thyroid issues and the last time her T3 was measured was in July 2012. She was not sure that a complete thyroid panel was ever done and she would be interested in having this tested. Quality: In terms of depression, she seems to be doing fairly well, not visibly sad or slowed. A little jittery, possibly from nervousness on meeting a new provider. Somewhat reticent. Severity: Based on PHQ9, mildly depressed. No SI or HI; no diana or psychosis. No cutting. Duration:Things have improved over the past 6 months. Context: has gotten mental health care so things are improving. Modifying factors: Medications are helping. Feels her therapy is going well. Associated S&S: Sleep is good. Appetite okay. Energy is often low but varies. 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 fexofenadine (JANICE) 60 mg tablet Active Take 60 mg by mouth daily. Indications: Seasonal Allergic Rhinitis ??? cetirizine (ZYRTEC) 10 mg tablet Active Take 10 mg by mouth daily. Indications: Seasonal Allergic Rhinitis ??? buPROPion (WELLBUTRIN XL) 150 mg 24 hr tablet Active Take 3 tablets by mouth every morning. 90 tablet 5 ??? LORazepam (ATIVAN) 0.5 mg tablet Active Take 1 tablet by mouth every 6 hours as needed (panic attacks). 7 tablet 0 ??? pseudoephedrine (SUDAFED) 30 mg tablet Active Take 30 mg by mouth every 4 hours as needed. ??? calcium carbonate (TUMS) 200 mg calcium (500 mg) chewable tablet Active Take 1 tablet by mouth daily as needed. ??? multivitamin (THERAGRAN) tablet Active Take 1 tablet by mouth daily. ??? tiZANidine (ZANAFLEX) 4 mg tablet Active Take 4 mg by mouth every 6 hours as needed. ??? lithium (ESKALITH) 450 mg CR tablet Active Take 2 tablets by mouth 2 times daily. 120 tablet 5 ??? zolpidem (AMBIEN) 10 mg tablet Active Take 1 tablet by mouth nightly as needed for Sleep. 30 tablet 4 Pertinent Medication Side Effects: Oxcarbazapine caused dizziness, [...] (increased anger, head feels noisy or fuzzy). Anticipating next period this week. Musculoskeletal: No aches or pains currently. Integumentary: No rashes or lesions. Neurological: No seizures or BARRIGA. Psychiatric: See HPI above Endocrine: History of thyroid cyst. Hematologic/Lymphatic: Does not bleed or bruise easily. Allergic/Immunological: See reviewed medication allergies; having difficulty with seasonal allergies. PFSH: () Past Medical/Psychiatric History: #Prior diagnoses - Bipolar 1 disorder (mixed, manic, depressed). Generalized anxiety disorder. Borderline traits. #Prior Hospitalizations - None endorsed. [facility] and had seen Karen Mallory in [facility] (therapist) for years. Currently under the care of Harsh Carranza in [place], [place] (for the past 1 year). #Prior [...] but reported to have caused a rash), [place] (Eskalith, current medication), Bupropion XL (current medication), [...] lasting 2-3 months. 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 Currently lives in [place], [place] with her . Has three sons (aged 13, 20, and 22) all living at home; youngest has been recipient of psychiatric care at [facility] for years for behavioral disturbance. was deployed to [place] in 2008 andreturned safely. No domestic violence and everyone has been getting along well. Does not smoke cigarettes. Has never been a heavy drinker and only occasionally has a glass of wine.No history of illicits (no Heroin or Marijuana). EXAM [05/08/14 bullets (incl VS)] Constitutional System ? Vital Signs: Blood pressure 107/78, pulse 80, resp. rate 20, last menstrual period 07/11/2013. (date approximate) Musculoskeletal System ? Muscle Strength/Tone (note atrophy, abnormal movements): Normal bulk and tone. No abnormal movements or tremors. ? Gait and Station: Ambulates with steady, stable gait and normal station. Psychiatric System ? General Appearance/Behavior: Thin woman, appears younger than stated age. Curly red bobbed hair. Very small, sharp teeth and very nervous grin. Wearing long skirt and tank top, under a sweater. Some PMA noted, a little fidgety. Cooperative but seems to want to keep this visit short. ? Speech: Normal to fast rate (not pressured), normal rhythm. Normal volume. No dysarthria or word-finding difficulties. ? Thought Process: Circumstantial and does not directly talk about symptoms related to her diagnosisuntil asked, then linear. Logical. Goal-directed. ? Associations: Intact. ? Abnormal Thoughts and Perceptions / Thought Content: Homicidality / Violent Thoughts: No homicidal or violent ideation. Suicidality: No suicidal thoughts. Hallucinations: No auditory or visual hallucinations. Delusions: No paranoid, grandiose, or guilty ideation. Obsessions: None endorsed. ? Judgment and Insight: Insight is fair. Judgment is fair to good. ? Mood & Affect: Mood is anxious, euthymic. Affect is full-range, bright, mood-congruent. ? Orientation: Grossly oriented to self, date, location, situation. ? Attention/Concentration: Attends to conversation, answers questions appropriately. Does not seem to be responding to internal stimuli. ? Memory: No gross deficits in recent or remote recall. ? Language: Normal Lao. ? Fund of Knowledge: Seems appropriate for age and experience. Psychotherapeutic Interventions and Response: Provided supportive statements to which she responded positively. MEDICAL DECISION MAKING ASSESSMENT: Shireen Silva is a 48 y.o. woman with Bipolar 1 disorder, most recent episode depressedand MALVIN. Her symptoms Of Bipolar disorder are stable at this time on her current medication. Although she endorses some difficulty coping with PMS, she is not interested in a new medication at this time and is amenable to coping with her symptoms. She has not been suicidal or homicidal and seems to befeeling better in the setting of her connecting with a therapist and starting an anti-depressant. Since she has not had labs drawn recently, we will order them to be done closer to her home. PLAN: Safety Risk Management: Risk factors include some relationship strain, impulsivity. Protective factors include family, therapeutic alliance with a health care provider, and future plans. Continue current medication(s). Labs ordered: Thyroid panel, BMP, [place] level; patient given lab order sheet to have blood drawn at [facility], results to be faxed to this headline writer. Patient Instruction/Education provided: Patient provided verbal instructions regarding plan of care. Patient understands the plan? Yes documented in this encounter Plan of Treatment Upcoming Encounters Date Type Specialty Care Team Description 06/30/2022 TH Visit (TeleHealth) Psychiatry Ashtyn Joseph APRN [facility] [address] [place], [place] [address] (Wo rk) documented as of this encounter Visit Diagnoses Diagnosis Bipolar disorder - Primary Bipolar disorder, unspecified documented in this encounter Care Teams Order Builder Relationship Specialty Start Date End Date Marlin Miramontes APRN PCP - General 06/14/13 01/25/17 documented as of this encounter
--- OUTSIDE RECORDS SUMMARY | 2022-05-26 22:02 | XMS_ITS | Encounter Summary ---
:1965 Author Organization [facility] [place] [address] Care Team Providers Name Role Phone Marlin Miramontes Ashtyn CLAY Primary Care Provider Reason for Visit Reason Onset Date Comments Medication Refill 04/25/2015 Encounter Details Date Type Department Care Team Description 04/25/2015 Refill Psychiatry and Behavioral Adalberto Krishnamurthy MD Bipolar disorder Health at [facility] [place] [address] [place] [phone] (Wo rk) Social History Tobacco Use Types Packs/Day Years Used Date Never Smoker Alcohol Use Standard Drinks/Week Comments No 0 (1 standard drink = 0.6 oz pure alcoho l) Sex Assigned at Date Recorded Female 02/11/2021 8:25 PM EDT documented as of this encounter Miscellaneous Notes Telephone Encounter - Adalberto Krishnamurthy MD - 04/26/2015 8:16 AM EDT From: Shireen [place] To: Adalberto Krishnamurthy MD Sent: 04/25/2015 11:29 PM EDT Subject: Medication Renewal Request Original authorizing provider: ADALBERTO KRISHNAMURTHY MD Shireen Silva would like a refill of the following medications: buPROPion (WELLBUTRIN XL) 300 mg Tablet Sustained Release 24 hr [ADALBERTO KRISHNAMURTHY MD] Preferred pharmacy: [id number] - [place], [place] - [address] [place] [address] Comment: documented in this encounter Plan of Treatment Upcoming Encounters Date Type Specialty Care Team Description 06/30/2022 TH Visit (TeleHealth) Psychiatry Ashtyn Joseph, [facility] [address] [place] [address] (Wo rk) documented as of this encounter Visit Diagnoses Diagnosis Bipolar disorder Bipolar disorder, unspecified documented in this encounter Care Teams Asset Liability Analyst Relationship Specialty Start Date End Date Marlin Miramontes APRN PCP - General 06/14/13 01/25/17 documented as of this encounter
--- OUTSIDE RECORDS SUMMARY | 2022-05-26 22:02 | XMS_ITS | Encounter Summary ---
:1965 Author Organization [facility] [place] [address] Care Team Providers Name Role Phone Marlin Miramontes Ashtyn CLAY Primary Care Provider Encounter Details Date Type Department Care Team Description 06/25/2015 Office Visit Psychiatry and Austin Wolfe, Bipolar I disorder, Behavioral Health at [facility] most recent episode [facility] (or current) [facility] [address], in [address] PSYCHIATRY or unspecified [place] [id number] remission [id number] [phone] Social History Tobacco Use Types Packs/Day Years Used Date Never Smoker Alcohol Use Standard Drinks/Week Comments No 0 (1 standard drink = 0.6 oz pure alcoho l) Sex Assigned at Date Recorded Female 02/11/2021 8:25 PM EDT documented as of this encounter Last Filed Vital Signs Vital Sign Reading Time Taken Comments Blood Pressure 127/56 06/25/2015 12:22 PM EDT Pulse 64 06/25/2015 12:22 PM EDT Temperature - - Respiratory Rate - - Oxygen Saturation - - Inhaled Oxygen Concentration - - Weight - - Height 167.6 cm (5' 6) 06/25/2015 12:22 PM EDT Body Mass Index - - documented in this encounter Patient Instructions Patient InstructionsAustin Wolfe MD - 06/25/2015 11:00 AM EDT [email or web address] Call your insurance company to get a list of covered providers in your area 1. Increase the lithium from 600 twice a day to 600 in the morning and 900 at night 2. Check the lithium level 1 week after starting the increased dose (check in the morning before youtake the first dose) 3. Once [facility] gets the result, we will contact you regarding the level and the appropriateness for starting the fluoxetine 4. Once the lithium is at the therapeutic level, will plan to start 10 mg fluoxetine daily. documented in this encounter Progress Notes Zhanna Lorenzo MD - 06/30/2015 11:23 PM EDT PSYCHIATRY TEACHING PHYSICIAN INVOLVEMENT Location: [...] as documented. Major issues addressed/discussed: The patient had stopped a low dose of fluoxetine recently, and at this meeting she expressed strong wishes to resume this medication. She did not feel as depressed when she was taking it. We had been worried that it would precipitate a manic episode, something that had happened in the past. As Dr. Wolfe notes, we recommended an increase in bupropion targeting depressed mood. The patient rejected this. She has no selma that bupropion is effective for her depression. We discussed several other options. In the end we made a compromise agreement that we would reinstate the fluoxetine, provided the patient accepted an increase in lithium. Target lithium level would be around 0.8. We assume that this would afford greater protection against an antidepressant induced manic episode. Labs were ordered and are pending. . Additional comments: none Austin Wolfe MD - 06/25/2015 12:10 PM EDT ESTABLISHED ADULT PATIENT OFFICE VISIT NOTE Time Spent: 60 minutes Attendee(s): pt This patient was seen with Dr. Zhanna Lorenzo. See her note for confirmatory and/or revisionary documentation. HISTORY Chief Complaint: Shireen Silva is a 50 y.o. Female presents today in transfer from Dr. Rupali Palomo. HPI: () Patient reports that since her last appointment with Dr. Palomo she has been struggling more with depression, stating it is the big thing right now. She has been off Prozac x 1 month now, and feels that it was doing more to help with her depression than the Wellbutrin - I kind of miss the Prozac. She reports her depression is primarily presenting as amotivation, which she notices in both her interests (e.g she would like to get back into writing more), as well as day-to-day chores, and spending time with her son. She notes that she has not been experiencing any manic symptoms off the fluoxetine(which are primarily related to impulsivity and reckless spending). She endorses some occasional thou ghts of hopelessness and that life may not be worth living, but states these are chronic, that she has no plan or intention to harm herself, and notes that her son is a strong protective factor. She would like to resume Prozac and ideally stop the Wellbutrin. She notes that her sleep is not bad when she uses the Ambien. She notes that her anxiety is not too bad, feeling that the depression is a far more prominent problem right now. However, she also notes that she has had 3 panic attacks (with chest discomfort and SOB) in the past 2 weeks. She attributes this to her stress levels, stating that she is stressed because of her mood, and this then triggers panic episodes. Despite this, she denies using any PRN lorazepam. She also expresses an interest in finding a more local therapist (she lives in [facility]). She is fearful that having to come so far for therapy will be an excuse for her to not come and do the work. Her current therapy referral is listed as in progress in [facility]. Quality: bad, depressed Severity: mild as per PHQ-9 below Duration: worse since stopping fluoxetine 1 month ago Timing: daily Context: medication changes Modifying factors: feels the Prozac was helpful. Does not feel the Wellbutrin has been helpful Associated S&S: anxiety, panic Most recent PHQ9: PHQ9 06/20/2015 Little interest or pleasure More than half [...] Medication Sig Dispense Refill ??? zolpidem (AMBIEN) 10 mg Tablet Take 1 tablet by mouth nightly as needed for Sleep. 30 tablet 3 ??? lithium (LITHOBID) 300 mg Tablet Sustained Release Take 2 tablets by mouth 2 times daily. 120 tablet 3 ??? buPROPion (WELLBUTRIN XL) 300 mg Tablet Sustained Release 24 hr Take 1 tablet by mouth every morning. 30 tablet 5 ??? LORazepam (ATIVAN) 0.5 mg Tablet Take 1 tablet by mouth every 6 hours as needed (panic attacks).7 tablet 3 ??? UNABLE TO FIND Med Name: Teikon Body protein shakes. Per website, each contains [...] tablet by mouth daily. ??? FLUoxetine (PROZAC) 10 mg Tablet Take 1 tablet by mouth daily. Take with 20 mg tablet for total of 30 mg daily. 30 tablet 3 No current facility-administered medications for this visit. Pertinent Medication Side Effects: apparent history of manic/manic-like symptoms on Prozac Review of Systems: (12/01/09) Constitutional: denies changes to appetite or weight loss Eyes: ENT: Cardiovascular: Respiratory: GI: : Musculoskeletal: Integumentary: Neurological: Psychiatric: See HPI above Endocrine: Hematologic/Lymphatic: Allergic/Immunological: See reviewed allergies PFSH: () Past Medical/Psychiatric History: Patient has a history of BPAD, type I, current episode depressed. She also has a diagnosis of MALVIN. She has reportedly never had a hospitalization or suicide attempt (although she has a history of cutting behavior). Past medication trials: Citalopram Venlafaxine Fluoxetine Bupropion (current) Risperidone [place] (current) Oxcarbazepine Clonazepam Lorazepam (current) Zolpidem (current) Eszopiclone Family Psychiatric and Medical History: Reported history of mental illness on paternal side, but states it was never discussed and she does not know the diagnoses. She does note two cousins who via suicide. Social History: Patient is the youngest child in her family, and is currently with three children. Two of them still live at home, the youngest 14. She has a bachelors degree in psychology, butis on disability for her mental illness. EXAM [05/08/14 bullets (incl VS)] Constitutional System ? Vital Signs: Blood pressure 127/56, pulse 64, height 167.6 cm (5' 6). Musculoskeletal System ? Muscle Strength/Tone (note atrophy, abnormal movements): no abnormalities noted ? Gait and Station: WNL Psychiatric System ? General Appearance/Behavior: female patient, appropriately groomed/dressed, interactive/cooperative, sitting in a chair. Mildly restless, but controlled. Pleasant, with direct and socially appropriate eye contact ? Speech: normal volume/rate/prosody ? Thought Process: linear, coherent, goal-directed ? Associations: intact ? Abnormal Thoughts and Perceptions / Thought Content: Homicidality / Violent Thoughts: denies Suicidality: denies Hallucinations: denies Delusions: denies Obsessions: denies ? Judgment and Insight: limited-fair ? Mood & Affect: Depressed/affect is anxious ? Orientation: x 3 ? Attention/Concentration: alert/attentive throughout the interview without notable deficit ? Memory: grossly intact to recent/remote events ? Language: fluent ? Fund of Knowledge: grossly normal Psychotherapeutic Interventions and Response: n/a MEDICAL DECISION MAKING ASSESSMENT: Shireen Silva is a 50 y.o. Female with BPAD, type I, current episode depressed. Her symptoms are minimally worse. She continues to complain of significant depressive symptoms, and would like to try Prozac again, despite the history of tipping her into diana. We discussed other options, including optimizing Wellbutrin or adding lamotrigine, but she would prefer to restart Prozac, stating she feels better on it, and the side effects are minimal. We discussed the danger of a manic episode,and agreed to restart the Prozac on the condition that her lithium be increased to a therapeutic dose prior to restarting it. Patient would also benefit from resuming therapy. As she is interested in a more local provider, we discussed calling her insurance company vs [employer] ? as options for locating someone in [facility]. PLAN: Increase the lithium from 600 twice a day to 600 in the morning and 900 at night - Patient plans to start this next week after a planned vacation to [facility] - She will have a level drawn 5-7 days after starting the increased dose - If that level is therapeutic (>0.8) then she will restart Prozac at 10 mg daily - This provider will contact patient once the lithium level is back to discuss starting the Prozac Continue other medications as currently prescribed Patient to investigate therapy via the means discussed above. She is also pending assignment to a therapist at [facility] in 6-8 weeks Patient Instruction/Education provided: Patient provided written and verbal instructions regarding treatment plan. Patient understands the plan? Yes documented in this encounter Plan of Treatment Upcoming Encounters Date Type Specialty Care Team Description 06/30/2022 TH Visit (TeleHealth) Psychiatry Ashtyn Joseph APRN [facility] [address] [place], [place] [address] (Wo rk) documented as of this encounter Visit Diagnoses Diagnosis Bipolar I disorder, most recent episode (or current) depressed, in partial or unspecified remission documented in this encounter Care Teams Fisher Net Relationship Specialty Start Date End Date Marlin Miramontes APRN PCP - General 06/14/13 01/25/17 documented as of this encounter
--- OUTSIDE RECORDS SUMMARY | 2022-05-26 22:02 | XMS_ITS | Encounter Summary ---
:1965 Author Organization [facility] [place] [address] Care Team Providers Name Role Phone Miramontes Marlin Chamorro APRN Primary Care Provider Reason for Visit Reason Comments Depression Anxiety Encounter Details Date Type Department Care Team Description 06/19/2014 Office Visit Psychiatry and Rupali Palomo, Bipolar disorder Behavioral Health at [facility] (Primary Dx) [facility] [address] PSYCHIATRY DEPT [place] [phone] Social History Tobacco Use Types Packs/Day Years Used Date Never Smoker Alcohol Use Standard Drinks/Week Comments No 0 (1 standard drink = 0.6 oz pure alcoho l) Sex Assigned at Date Recorded Female 02/11/2021 8:25 PM EDT documented as of this encounter Last Filed Vital Signs Vital Sign Reading Time Taken Comments Blood Pressure 113/63 06/19/2014 7:52 AM EDT Pulse 59 06/19/2014 7:52 AM EDT Temperature - - Respiratory Rate 19 06/19/2014 7:52 AM EDT Oxygen Saturation - - Inhaled Oxygen Concentration - - Weight 64.9 kg (143 lb) 06/19/2014 7:52 AM EDT Height 167.6 cm (5' 6) 06/19/2014 7:52 AM EDT Body Mass Index 23.08 06/19/2014 7:52 AM EDT documented in this encounter Progress Notes Marleen Michelle MD - 06/26/2014 10:50 AM EDT Attending Attestation I saw and evaluated Ms. Silva with Dr. Palomo. I reviewed Ms. Silva's history during the visit. My exam confirms the resident's findings with the following exceptions/clarifications: Sx of worsening depression, no signs of diana/hypomania. After reviewing R/B, pt consents to trial of fluoxetineas this has been helpful in the past, pt aware that this may lead to emergence of diana sx and she should contact us immediately if she experiences such sx. Last Li level in May .. Given Ms. Silva's history of suicidal ideation and impulsive character style, she is at a chronically elevated risk of self harm. That said, there is no evidence that she is at an acutely elevated risk of such behavior at present (that is to say, the risk is not above its chronically elevated baseline). As such, the least restrictive treatment environment appropriate for her ongoing care remains an outpatient setting. The assessment and plan were formulated with me and I agree with them as written. Marleen Michelle MD Attending psychiatrist Rupali Palomo MD - 06/19/2014 10:51 AM EDT ESTABLISHED ADULT PATIENT OFFICE VISIT NOTE Time Spent: 30 minutes Attendee(s): Patient, this display card writer. This patient was seen with Dr. Marleen Michelle. See her note for confirmatory and/or revisionary documentation. HISTORY Chief Complaint: Shireen Silva is a 49 y.o. woman who presents today for follow-up of her mood disorder. HPI: () Since last seen by this display card writer, Shireen reports that she has been writing things out that have been bothering her and presents this display card writer with a list of her concerns which we then reviewed. First, she notes that she got into a confrontational incident, shortly after our last appointment, where someone said something to me and I took it the wrng way and I got very defensive, then I apologized and felt really bad afterwards. She says she'd felt like I wanted to cut but I didn't. Second, she described what she feels is some depersonalization, which she feels has been going on for a while.Per Shireen,I didn't really know what it was, but I started reading and it fit me... I know I do it sometimes.She reports that it feels like I'm outside and detached but like I can see things going on.... It usually happens when I'm in social situations when I'm overwhelmed.The last episode of depersonalization that she recalls was when my parents came to visit, and everyone was talking. Third, she recalls having heard music and her name called, in the past - It didn't seem like hallucinations, those seem bigger... It's mostly music or thinking I hear the phone and no one hears it, or I didn't know I had the radio on. This display card writer asks if she ever recognized the music or at least the genre and Shireen rep lied, I couldn't tell you what the music was. She also notes that when she takes Zolpidem, she usually tries to take it and go directly to bed, but sometimes I get distracted and I'll feel like someone is talking with me. None of these auditory experiences have been distressing. In terms of her symptoms, Shireen notes that her depression is not any better. She does not endorse SI per se, but says, sometimes I feel like no one no one would care if I was gone. She does not reportany plans for suicide and no intent to act. We discussed medication changes and reviewed her past medications. She has been on 450 mg of Bupropion before, and notes that looking back at my journaling,it looks like the same thing that she is feeling now was happening on that increased dose. She has also been at higher doses of [place] in the past, which she says affected me cognitively a lot more and never helped with the depression. She states very firmly that she won't take Quetiapine, or anyt gokul that is known to cause weight gain. She recalls that Risperidone caused me a rash. This display card writer mentioned the possibility of trying Lurasidone, as Shireen had expressed interest in the past, although with the same reservations as before - that we were reluctant to start an anti-psychotic if we could manage her symptoms with medications that were less likely to cause adverse effects. Shireen notes, I'm scared to do anything, but I see how this affects my life and my family. We revisited the possibility of adding another anti-depressant instead, as the certainty of her Bipolar diagnosis has not been firmly established. Shireen says that when she is manic, she only sleeps 2-3 hours and bounces offthe damon but was a little vague about how long these episodes would last. She recalls that she hadno benefit from Citalopram, that when she missed doses of Venlafaxine, she felt crazy, but when she was on Fluoxetine, she feels it was so effective that it made me manic. She is willing to test a low dose (20 mg) of Fluoxetine to see if we can improve her mood without pushing her into diana nowthat she is also on a mood stabilizer ([place]). Most recent labs: Component Latest Ref Rng 06/12/2014 04/06/2014 08/17/2013 Sodium 137 - 147 140 144 143 Potassium 3.4 - 5.3 4.1 4.3 4.3 Chloride 99 - 108 105 107 107 CO2 22 - 29 28 29 27 BUN 14 12 15 Creatinine 1 1 1 Glucose Lvl 91 88 79 Calcium 8.7 - 10.7 9.3 9.3 8.9 TSH 1.48 1.24 1.03 [place] Lvl 0.61 0.4 (L) 0.41 (L) Quality: In terms of depression, appears more dysphoric. Neurotic. Diffident. Severity: Based on PHQ9, moderately depressed. No active SI and no HI; no hypo/diana or cutting. Some passive SI. Reports some altered auditory perceptions (hearing her name, hearing the phone ring, hearing music) and episodes of dissociation (depersonalization) that sound almost like PTSD but no report of trauma history. Duration: No change in depression since last appointment. Context: Fels her depression is negatively affecting her family. Modifying factors: Thinks her medications need to be changed. Does not recall noticing a difference on a higher dose of Bupropion. No change with Citalopram. Venlafaxine had bad withdrawal symptoms with a missed dose, and Fluoxetine made her feel manic - less sleep and bouncing off the damon Associated S&S: Very concerned with not gaining weight. Sleep and appetite are okay. Most recent PHQ9: PHQ9 06/14/2014 Little interest or pleasure Nearly every day Down, depressed, hopeless Nearly every day Trouble sleeping Not at all Tired or no energy Nearly every day Poor appetite or overeating Several days Feeling like a failure More than half the days Trouble concentrating (newspaper) Several days Moving or speaking slowly Not at all Would be better off Several days PHQ9 Scores 14 (Moderate Depression) Current Medications: Current Outpatient Prescriptions Medication Sig Dispense Refill ??? lithium (LITHOBID) 300 mg CR tablet Take 2 tablets by mouth 2 times daily. 120 tablet 2 ??? buPROPion (WELLBUTRIN XL) 300 mg 24 [...] mouth daily. ??? FLUoxetine (PROZAC) 20 mg tablet Take 1 tablet by mouth daily. 30 tablet 3 Pertinent Medication Side Effects: Oxcarbazapine caused dizziness, [...] allergies; having difficulty with seasonal allergies. PFSH: (0) Past Medical/Psychiatric History: #Prior diagnoses - Bipolar [...] under the care of Harsh Carranza in [place], [place] (for the past 1 year). #Prior [...] but reported to have caused a rash), [place] (Eskalith, current medication), Bupropion XL (current medication), [...] college, lasting 2-3 months. 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 Currently lives in [place], [place] with her . Has three sons (aged 13, 20, and 22) all living at home; youngest has been recipient of psychiatric care at [facility] for years for behavioral disturbance. [...] Constitutional System ? Vital Signs: Blood pressure 113/63, pulse 59, resp. rate 19, height 167.6 cm (5' 6), weight 64.864 kg (143 lb). 122/72 65 Musculoskeletal System ? Muscle Strength/Tone (note atrophy, abnormal movements): Normal bulk and tone. No abnormal movements or tremors. ? Gait and Station: Ambulates with steady, stable gait and normal station. Psychiatric System ? General Appearance/Behavior: Thin woman, appears younger than stated age. Curly red bobbed hair. Very small, sharp, slightly discolored teeth and very nervous grin. Somewhat disheveled, appears to have recently been exercising. Some PMA noted, quite fidgety. Cooperative. ? Speech: Normal rate, normal [...] recent or remote recall. ? Language: Normal Slovak. ? Fund of Knowledge: Seems appropriate for age and experience. Psychotherapeutic Interventions and Response: Active listening, with positive response. MEDICAL DECISION MAKING ASSESSMENT: Shireen Ricardo is a 49 y.o. woman with a history of the diagnosis of Bipolar 1 disorder,most recent episode depressed and MALVIN. Her symptoms of depressed mood are reported to be a little worse. She is not suicidal, no homicidal, not hypo/manic, and not psychotic although she now reports some episodes of auditory perceptual disturbances and dissociation. Seems mostly dysthymic, with maladaptive personality structure and difficulty accessing coping skills. Nevertheless, as medications seemto be helping with mood dysregulation, will continue for now with the following changes - we will re-try Fluoxetine, which Shireen reports as having been effective in enhancing her mood in the past. She is amenable to this plan. She will return to clinic on 08/07 at 10:30 AM. PLAN: Safety Risk Management: No SI or HI. Risk factors include some relationship strain, impulsivity. Protective factors include family, therapeutic alliance with a health care provider, and future plans. Continue current medication(s) with the following changes: Start Fluoxetine 20 mg daily for depression. Labs ordered: None. Patient Instruction/Education provided: Patient provided verbal instructions regarding plan of care. Patient understands the plan? Yes documented in this encounter Plan of Treatment Upcoming Encounters Date Type Specialty Care Team Description 06/30/2022 TH Visit (TeleHealth) Psychiatry Ashtyn Joseph APRN [facility] [address] [place], [place] [address] (Wo rk) documented as of this encounter Visit Diagnoses Diagnosis Bipolar disorder - Primary Bipolar disorder, unspecified documented in this encounter Care Teams Pattern Keeper Relationship Specialty Start Date End Date Marlin Miramontes APRN PCP - General 06/14/13 01/25/17 documented as of this encounter
--- OUTSIDE RECORDS SUMMARY | 2022-05-26 22:02 | XMS_ITS | Encounter Summary ---
:1965 Author Organization [place] [address] Care Team Providers Name Role Phone Ayana Lai MD Primary Care Provider Reason for Visit Reason Onset Date Comments Medication Refill 09/10/2011 Encounter Details Date Type Department Care Team Description 09/10/2011 Refill Psychiatry and Behavioral David Farias MD [facility] [address] [place] [address] [place] [address] [phone] (Wo rk) Social History Tobacco Use Types Packs/Day Years Used Date Never Smoker Alcohol Use Standard Drinks/Week Comments No 0 (1 standard drink = 0.6 oz pure alcoho l) Sex Assigned at Date Recorded Female 02/11/2021 8:25 PM EDT documented as of this encounter Plan of Treatment Upcoming Encounters Date Type Specialty Care Team Description 06/30/2022 TH Visit (TeleHealth) Psychiatry Ashtyn Joseph APRN [facility] [address] [place], [place] [address] (Wo rk) documented as of this encounter Visit Diagnoses Not on filedocumented in this encounter Care Teams [employer]haft Grinder Relationship Specialty Start Date End Date Ayana Lai MD PCP - General 07/18/11 03/29/13 [address] [place] [address] documented as of this encounter
--- OUTSIDE RECORDS SUMMARY | 2022-05-26 22:02 | XMS_ITS | Encounter Summary ---
:1965 Author Organization [place] [place] [address] Care Team Providers Name Role Phone Marlin Miramontes DANNA Primary Care Provider Reason for Visit Reason Onset Date Comments Medication Refill 10/15/2015 Encounter Details Date Type Department Care Team Description 10/15/2015 Refill Psychiatry and Behavioral Dinesh Shields MD [facility] [place] [address] [place] [address] [phone] (Wo rk) Social History Tobacco Use Types Packs/Day Years Used Date Never Smoker Alcohol Use Standard Drinks/Week Comments No 0 (1 standard drink = 0.6 oz pure alcoho l) Sex Assigned at Date Recorded Female 02/11/2021 8:25 PM EDT documented as of this encounter Miscellaneous Notes Telephone Encounter - Dinesh Shields MD - 10/15/2015 1:14 PM EST From: Shireen Ricardo To: Dinesh Shields MD Sent: 10/15/2015 9:34 AM EST Subject: Medication Renewal Request Original authorizing provider: DINESH SHIELDS MD Shireen Badillodge would like a refill of the following medications: FLUoxetine (PROZAC) 20 mg Tablet [DINESH SHIELDS MD] [id number] [place], [place] - [address] [place] [address] Comment: I do not see it listed but I also need to renew: Zolpidem Tartrate 10 mg Tab. Thank You. documented in this encounter Plan of Treatment Upcoming Encounters Date Type Specialty Care Team Description 06/30/2022 TH Visit (TeleHealth) Psychiatry Ashtyn Joseph APRN [facility] PS[facility]I[address], [place] [address] (Wo rk) documented as of this encounter Visit Diagnoses Not on filedocumented in this encounter Care Teams Motor Setter Relationship Specialty Start Date End Date Marlin Miramontes APRN PCP - General 06/14/13 01/25/17 documented as of this encounter
--- OUTSIDE RECORDS SUMMARY | 2022-05-26 22:02 | XMS_ITS | Encounter Summary ---
:1965 Author Organization [facility] [place] [address] Care Team Providers Name Role Phone Marlin Miramontes DANNA Primary Care Provider Reason for Visit Reason Onset Date Comments Medication Refill 01/07/2015 Encounter Details Date Type Department Care Team Description 01/07/2015 Refill Psychiatry and Adalberto Krishnamurthy MD Insomnia, unspecified Behavioral Health at [facility] [place] [id number] [place] [phone] Social History Tobacco Use Types Packs/Day Years Used Date Never Smoker Alcohol Use Standard Drinks/Week Comments No 0 (1 standard drink = 0.6 oz pure alcoho l) Sex Assigned at Date Recorded Female 02/11/2021 8:25 PM EDT documented as of this encounter Miscellaneous Notes Telephone Encounter - Adalberto Krishnamurthy MD - 01/08/2015 8:49 AM EST From: Shireen Silva To: Adalberto Krishnamurthy MD Sent: 01/07/2015 12:51 AM EST Subject: Medication Renewal Request Original authorizing provider: ADALBERTO KRISHNAMURTHY MD Shireen Silva would like a refill of the following medications: zolpidem (AMBIEN) 10 mg Tablet [ADALBERTO KRISHNAMURTHY MD] [id number] [place], [place] - [address] Comment: documented in this encounter Plan of Treatment Upcoming Encounters Date Type Specialty Care Team Description 06/30/2022 TH Visit (TeleHealth) Psychiatry Ashtyn Joseph APRN [facility] PS[facility]ATRY [place], [place] [address] (Wo rk) documented as of this encounter Visit Diagnoses Diagnosis Insomnia, unspecified documented in this encounter Care Teams Concrete Pile Driver Operator Relationship Specialty Start Date End Date Marlin Miramontes APRN PCP - General 06/14/13 01/25/17 documented as of this encounter
--- OUTSIDE RECORDS SUMMARY | 2022-05-26 22:02 | XMS_ITS | Encounter Summary ---
:1965 Author Organization [facility] [place] [address] Care Team Providers Name Role Phone Marlin Miramontes APRN Primary Care Provider Encounter Details Date Type Department Care Team Description 08/23/2013 External Results Psychiatry and Rupali Palomo MD Behavioral Health at [facility] [place] [address] [place] [address] [phone] Social History Tobacco Use Types Packs/Day Years [...] Ashtyn Joseph APRN [facility] [address] [place], [place] [address] (Wo rk) documented as of this encounter Procedures Procedure Name Priority Date/Time Associated Diagnosis Comme nts EXTERNAL LAB CBC CMP Routine 08/17/2013 Results for this THYROID RESULTS PANEL proced ure are in the results section . LITHIUM LEVEL Routine 08/17/2013 Results for th is procedure are i n the results section . documented in this encounter Results CBC / CMP / Thyroid External Results (08/17/2013) athologist Signature WBC Hemoglobin 12.0 - 16.0 Hematocrit 36.0 - 46.0 MCV 82.0 - 108.0 Platelets Sodium 143 137 - 147 Potassium 4.3 3.4 - 5.3 Chloride 107 99 - 108 CO2 27 22 - 29 BUN 15 Creatinine 1 Estimated GFR 59.69 Glucose Lvl 79 Calcium 8.9 8.7 - 10.7 Magnesium Phosphorus 2.5 - 4.9 Total Protein 6.4 - 8.2 Albumin 3.5 - 5.0 Total Bilirubin 0.1 - 1.4 Bili, Direct 0.01 - 0.4 Alk Phos AST 13 - 35 ALT 7 - 35 GGT LDH 80 - 250 Amylase 25 - 110 Lipase 0 - 53 TSH 1.03 Comment: reference range 0.36-3.74 uIU/m L T4, total 6.2 Comment: reference range 4.5-12.5 ug\dL T4 Free-Eso 0.96 Comment: reference range 0.76-1.46 ng/dL T3, Total 68 Comment: reference range 60-181 ng/dL Specimen (Source) Anatomical Location Collection Method / Collectio n Time Received Time / Laterality Volume 08/17/2013 Rupali Palomo MD POINT OF CARE TEST ORDERABLE S (ABNORMAL) [place] level (08/17/2013) athologist Signature [place] Lvl 0.41 (L) Comment: reference range 0.6-1.2 mmol/L Specimen (Source) Anatomical Location Collection Method / Collectio n Time Received Time / Laterality Volume Blood specimen 08/17/2013 (specimen) Rupali Palomo MD CHEMISTRY ORDERABLES documented in this encounter Visit Diagnoses Not on filedocumented in this encounter Care Teams Authorization Representative Relationship Specialty Start Date End Date Marlin Miramontes APRN PCP - General 06/14/13 01/25/17 documented as of this encounter
--- OUTSIDE RECORDS SUMMARY | 2022-05-26 22:02 | XMS_ITS | Encounter Summary ---
:1965 Author Organization [facility] [place] [address] Care Team Providers Name Role Phone Ayana Lai MD Primary Care Provider Reason for Visit Reason Onset Date Comments Medication Refill 04/10/2011 Encounter Details Date Type Department Care Team Description 04/10/2011 Refill Psychiatry and Behavioral Joey Chan MD [facility] [place] [place] [address] [place] [id number] Social History Tobacco Use Types Packs/Day Years Used Date Never Smoker Alcohol Use Standard Drinks/Week Comments No 0 (1 standard drink = 0.6 oz pure alcoho l) Sex Assigned at Date Recorded Female 02/11/2021 8:25 PM EDT documented as of this encounter Plan of Treatment Upcoming Encounters Date Type Specialty Care Team Description 06/30/2022 TH Visit (TeleHealth) Psychiatry Ashtyn Joseph APRN [facility] [place] [address] [place], [place] [address] (Wo rk) documented as of this encounter Visit Diagnoses Not on filedocumented in this encounter Care Teams Package Pick Up Relationship Specialty Start Date End Date Ayana Lai MD PCP - General 10/22/10 07/17/11 [address] [place], [place] [id number] documented as of this encounter
--- OUTSIDE RECORDS SUMMARY | 2022-05-26 22:02 | XMS_ITS | Encounter Summary ---
:1965 Author Organization [facility] [place] [address] Care Team Providers Name Role Phone Ayana Lai MD Primary Care Provider Encounter Details Date Type Department Care Team Description 07/29/2011 Orders Only Psychiatry and Behavioral David Farias MD [facility] at [facility] Yg [facility] [address] [place] [address] [phone] (Wo rk) Social History Tobacco Use Types Packs/Day Years Used Date Never Smoker Alcohol Use Standard Drinks/Week Comments No 0 (1 standard drink = 0.6 oz pure alcoho l) Sex Assigned at Date Recorded Female 02/11/2021 8:25 PM EDT documented as of this encounter Plan of Treatment Upcoming Encounters Date Type Specialty Care Team Description 06/30/2022 TH Visit (TeleHealth) Psychiatry Ashtyn Joseph APRN [facility] PSYCHIATRY [place], [place] [address] (Wo rk) documented as of this encounter Visit Diagnoses Not on filedocumented in this encounter Care Teams Boat Builder And Repairer Relationship Specialty Start Date End Date Ayana Lai MD PCP - General 07/18/11 03/29/13 [address] [place] [address] documented as of this encounter
--- OUTSIDE RECORDS SUMMARY | 2022-05-26 22:02 | XMS_ITS | Encounter Summary ---
:1965 Author Organization [facility] [place] [address] Care Team Providers Name Role Phone Marlin Miramontes APRN Primary Care Provider Encounter Details Date Type Department Care Team Description 06/14/2013 Office Visit Endocrinology at [facility] Endy Banks, Thyroid cyst [facility] MD (Primary Dx) Drive [address] [place] [address] [place] [address] [phone] Social History Tobacco Use Types Packs/Day Years Used Date Never Smoker Alcohol Use Standard Drinks/Week Comments No 0 (1 standard drink = 0.6 oz pure alcoho l) Sex Assigned at Date Recorded Female 02/11/2021 8:25 PM EDT documented as of this encounter Progress Notes Endy Banks MD - 06/14/2013 1:28 PM EDT Patient seen in consultation at the request of: Dr Miramontes Reason for consult: Thyroid nodule Shireen Silva is a very pleasant 48 y.o. year old female with a history of one or more thyroid nodules. Evaluation in 2009 apparently included an FNA which was benign. Records of this are not available. She is on Li and has had multiple normal TSH's in the past. History of H+N XRT exposure: No Family history of thyroid cancer: No Thyroid Compressive symptoms: Globus sensation: No Dysphagia: No Dysphonia: No Dyspnea: No Symptoms of thyroid hormone excess / deficiency Heat intolerance: No Cold intolerance: No Diarrhea: No Constipation: No Weight loss / gain: No Anxiety: No Jitteriness: No Tremors: No Palpitations: No Difficulty concentrating: No Lab Results Component Value Date/Time TSH 2.19 08/17/2012 2:31 PM TSH 1.95 07/18/2011 9:45 AM Lab Results Component Value Date/Time CALCIUM 9.6 08/17/2012 2:31 PM CALCIUM 9.5 07/18/2011 9:45 AM Patient Active Problem List Diagnoses Code ??? Thyroid cyst 246.2 ??? Bipolar disorder 296.80 Family History S - thyroid nodules No thyroid cancer Social History Nonsmoker Review of Systems See HPI. All other systems negative. Physical Exam GEN: A+O 3; WDWN; Comfortable; Mood and affect appropriate. EYES: ABENA; No stare, no lid lag, no conjunctival injection NECK: Trachea midline, no neck masses; Thyroid not enlarged; Non-nodular; No cervical lymphadenopathy CHEST: Clear to auscultation; No dullness to percussion CV: Regular rate and rhythm; No murmurs rubs or gallops; no peripheral edema ABD: Soft and non-tender; No masses notes MSK: Normal gait and station; No clubbing or cyanosis of digits SKIN: Intact without lesions or rashes NEURO: CN II-XII grossly intact with normal coordination, muscle strength and tone; No tremor of outstretched hands; DTRs 2+ w/ normal relaxation phase THYROID ULTRASOUND: Indication: Thyroid nodule on prior study; Considering FNA - clarify size, position and US characteristics Date: 06/14/2013 Comparison: Real time images of the thyroid gland were obtained using a [employer] and an HFL38/[id number] broadband linear array transducer. All measurements are given as AP x Transverse x Longitudinal Right Lobe: The right lobe measures: 1.8x2.1x5.1cm and is of normal echotexture. There are three nodules in the right lobe. From superior to inferior: - 0.6x0.6x0.8cm cyst with a septation anteriorly - 0.8x0.8x1.0cm thick wall cyst with small ~0.3cm mural solid isoechoic component; Avascular; No calcifications - 0.6x0.8x0.9cm spongiform nodule with sharp, well defined borders; There are no intranodular calcifications; There is no flow on power doppler. Left Lobe: The left lobe measures: 1.5x2.0x5.5cm and is of normal echotexture. There are several small colloid cysts measuring on the order of 0.3 - 0.4cm. There is a spongiform nodule in the lower pole that measures: 0.7x0.7x1.0cm The nodule has sharp, well defined borders; There are no intranodular calcifications; There is peripheral / central flow on power doppler. Isthmus: The isthmus measures: 0.3cm ASSESSMENT / PLAN: Thyroid Nodule Multiple small nodules as above None have any high risk US features None have any indications for FNA Approximately 5% of individuals have palpable thyroid nodules and 30% or more of adults have non-palpable nodules. The prevalence of nodules increases with age, so that perhaps 50% of individuals olderthan 60 years of age have nodules. Many of these nodules will be well under 1cm in size. The incidence of thyroid cancer is low, but rising. About 44,700 individuals will be found to have thyroid cancer in 2010. The prevalence of thyroid cancer is low compared with the prevalence of thyroid nodule. [id number], there were about 434,000 individuals in the [place] with a history of thyroid cancer. There have been a number of studies that have estimated risk of malignancy in thyroid nodule. The estimated risk varies with size and other characteristics of nodules selected for biopsy, the techniqueused for the biopsy, the institution and its referral patterns, and the characteristics of the localpopulation. Most studies have estimated malignancy risk in nodules that are palpable or > 1cm on U/S to be in the range of 3-15%. At [facility], the nodules selected for biopsy are histologically positive in about 7% of cases. In general, options for further evaluation include: - Follow with serial U/S - Fine needle aspiration biopsy - Thyroidectomy At [facility], our criteria for FNA biopsy includes: - All palpable nodules - All nodules > 1cm in two or more dimension - Nodules > 8-9mm in two or more dimensions with high risk sonographic features, or occuring in patients with high risk historical features - Nodules that have been previously biopsied and found to have benign cytology but which have subsequently enlarged or changed significantly - Simple cysts do not require FNA biopsy Nodules not meeting the above criteria can generally be followed with ultrasound. As her initial assessment was in 2009 and currently in 2012 her nodules are all very small and non-worrisome appearing, I think it would be reasonable and appropriate for her to have clinical followup for this only and repeat thyroid imaging only in the event of a clinical change in her neck. documented in this encounter Plan of Treatment Upcoming Encounters Date Type Specialty Care Team Description 06/30/2022 TH Visit (TeleHealth) Psychiatry Ashtyn Joseph APRN [facility] [address] [place], [place] [address] (Wo rk) documented as of this encounter Visit Diagnoses Diagnosis Thyroid cyst - Primary Cyst of thyroid documented in this encounter Care Teams Power Screwdriver Operator Relationship Specialty Start Date End Date Marlin Miramontes APRN PCP - General 06/14/13 01/25/17 documented as of this encounter
--- OUTSIDE RECORDS SUMMARY | 2022-05-26 22:02 | XMS_ITS | Encounter Summary ---
:1965 Author Organization [facility] [place] [address] Care Team Providers Name Role Phone Kulwinder Marlin Chamorro APRN Primary Care Provider Reason for Visit Reason Comments Bipolar Disorder Encounter Details Date Type Department Care Team Description 08/07/2014 Office Visit Psychiatry and Rupali Palomo, Bipolar disorder Behavioral Health at MD (Primary Dx) [facility] [address] PSYCHIATRY DEPT [place] [address] [phone] Social History Tobacco Use Types Packs/Day Years Used Date Never Smoker Alcohol Use Standard Drinks/Week Comments No 0 (1 standard drink = 0.6 oz pure alcoho l) Sex Assigned at Date Recorded Female 02/11/2021 8:25 PM EDT documented as of this encounter Last Filed Vital Signs Vital Sign Reading Time Taken Comments Blood Pressure 125/63 08/07/2014 1:33 PM EDT Pulse 61 08/07/2014 1:33 PM EDT Temperature - - Respiratory Rate 18 08/07/2014 1:33 PM EDT Oxygen Saturation - - Inhaled Oxygen Concentration - - Weight 62.1 kg (137 lb) 08/07/2014 1:33 PM EDT Height 167.6 cm (5' 6) 08/07/2014 1:33 PM EDT Body Mass Index 22.11 08/07/2014 1:33 PM EDT documented in this encounter Progress Notes Zhanna Lorenzo MD - 08/14/2014 9:20 AM EDT PSYCHIATRY TEACHING PHYSICIAN INVOLVEMENT Location: Office [...] with them as documented. Major issues addressed/discussed: Patient's complaint of midday fatigue, dosing and medication options. Education about early warning signs of diana, given history of fluoxetine induced diana. Additional comments: none. Rupali Palomo MD - 08/07/2014 11:12 AM EDT ESTABLISHED ADULT PATIENT OFFICE VISIT NOTE Time Spent: 30 minutes Attendee(s): Patient, this mortgage loan underwriter. This patient was seen with Dr. Zhanna Lorenzo. See her note for confirmatory and/or revisionary documentation. HISTORY Chief Complaint: Shireen Silva is a 49 y.o. woman who presents today for follow-up of her mood disorder. HPI: () Since last seen in clinic, Shireen started Fluoxetine 20 mg. Of her depression, she says, it's hard toexplain, I don't feel that overwhelming despair kind of feeling. I still have motivation problems. Idon't know if it makes me sleepy. She takes it in the morning and thinks it would be reasonable totry moving it to bedtime. On initiation, she first had some stomach upset but this has passed. She does not endorse SI or HI. She thinks that when she was on Fluoxetine previously, she became manic because she was not on a mood stabilizer; she has not had any manic symptoms since starting this trial (together with [place]). She recently dyed her hair dark brown and notes, I've done everything but blo nde. She does not endorse anxiety at the moment, but mentions, I'm out of Lorazepam, I don't take it a lot but I have stressful things coming up, one son just moved, one son is looking for a job, and her is out of town. She adds, 08/10 is hard for me, my older son gets me and he's moved out. She is willing to consider increasing her Fluoxetine dose to 30 mg but prefers to try moving the time of the dose first. She says that if it turns out to be somewhat activating, she will notice as hersleep is pretty good. Most recent labs: Component Latest Ref Rng 06/12/2014 04/06/2014 08/17/2013 Sodium 137 - 147 140 144 143 Potassium 3.4 - 5.3 4.1 4.3 4.3 Chloride 99 - 108 105 107 107 CO2 22 - 29 28 29 27 BUN 14 12 15 Creatinine 1 1 1 Glucose Lvl 91 88 79 Calcium 8.7 - 10.7 9.3 9.3 8.9 TSH 1.48 1.24 1.03 [place] Lvl 0.61 0.4 (L) 0.41 (L) Quality: In terms of depression, appears brighter, calmer, yet still neurotic. Diffident. Severity: Based on PHQ9, mildly depressed. No active SI and no HI; no hypo/diana or cutting. No SI or HI. Motivation still low. Duration: No change in depression since last appointment. Context: 08/10 is coming up (difficult for her), son has moved out and out of town. Modifying factors: Fluoxetine seems to have helped but making her sleepy. Associated S&S: Sleep is okay. Had GI symptoms with initiation of Fluoxetine but this has passed. Most recent PHQ9: PHQ9 08/04/2014 Little interest or pleasure Several days Down, depressed, hopeless Several days Trouble sleeping Not at all Tired or no energy More than half the days Poor appetite or overeating Not at all Feeling like a failure More than half the days Trouble concentrating (newspaper) More than half the days Moving or speaking slowly Not at all Would be better off Several days PHQ9 Scores 9 (Mild Depression) Current Medications: Current Outpatient Prescriptions Medication Sig Dispense Refill ??? LORazepam (ATIVAN) 0.5 mg Tablet Take 1 tablet by mouth every 6 hours as needed (panic attacks).7 tablet 0 ??? FLUoxetine (PROZAC) 20 mg tablet Take 1 tablet by mouth daily. 30 tablet 3 ??? lithium (LITHOBID) 300 mg CR tablet [...] tablet Take 1 tablet by mouth daily. Pertinent Medication Side Effects: Oxcarbazapine caused dizziness, [...] - None endorsed. Has been followed in [facility] since May 2006 and had seen Karen Mallory in [facility] (therapist) for years. Currently under the care of Harsh Carranza in [place], [place] (for the past 1 year). #Prior [...] reported to have caused a rash), [place] (Eskalith, current medication), Bupropion XL (current medication), Eszopiclone (ineffective for sleep), Oxazepam (ineffective for anxiety), Clonazepam,Zolpidem (current medication). Family Psychiatric and Medical History: Brother with alcohol use disorder, possible Bipolar disorder. Paternal grandmother with unknown psychiatric diagnosis but history of psychiatric hospitalization.Paternal uncle and cousins with unknown psychiatric diagnoses but multiple suicide attempts. Social History: Born in [facility]; has 1 older brother and 2 older sisters. Has a bachelor's degree in Psychology. Had first manic episode per report in college, lasting 2-3 months. 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 Currently lives in [place], [place] with her . Has three sons (aged 13, 20, and 22) all living at home; youngest has been recipient [place] [facility] [place] for [place] disturbance. was deployed [...] moving out and she is missing him. EXAM [05/08/14 bullets (incl VS)] Constitutional System ? Vital Signs: Blood pressure 125/63, pulse 61, resp. rate 18, height 167.6 cm (5' 6), weight 62.143 kg (137 lb). Musculoskeletal System ? Muscle Strength/Tone (note atrophy, abnormal movements): Normal bulk and tone. No abnormal movements or tremors. ? Gait and Station: Ambulates with steady, stable gait and normal station. Psychiatric System ? General Appearance/Behavior: Thin woman, appears younger than stated age. Straight dark brown hair. Very small, sharp, slightly discolored teeth and very nervous grin. Neatly dressed for the weather.Some PMA noted, quite fidgety. Cooperative. ? Speech: [...] good. ? Mood & Affect: Mood is I don't feel that overwhelming despair kind of feeling. Affect is constricted, mood-congruent. Anxious laughter. ? Orientation: Grossly oriented to self, date, location, situation. ? Attention/Concentration: Attends to conversation, answers questions appropriately. Does not seem to be responding to internal stimuli. ? Memory: No gross deficits in recent or remote recall. ? Language: Normal Gambian. ? Fund of Knowledge: Seems appropriate for age and experience. Psychotherapeutic Interventions and Response: Active listening, with positive response. MEDICAL DECISION MAKING ASSESSMENT: Shireen Silva is a 49 y.o. woman with a history of the diagnosis of Bipolar 1 disorder,most recent episode depressed and MALVIN. Her symptoms of depressed mood are reported to be improved since the addition of Fluoxetine. She is not suicidal, not homicidal, not hypo/manic, and not psychotic. Since she has noted some daytime sleepiness when taking the Fluoxetine in the morning, we have suggested that she shift her dose to evening and if she notices that her sleep is disturbed (whereas currently it is deep and restful), to let this mortgage loan underwriter know and move the dose back to the morning. If she continues to have problems with motivation, we will consider increasing her Fluoxetine dose to 30 mg daily. She is amenable to this plan. She will return to clinic on 10/02/14 at 9 AM. PLAN: Safety Risk Management: No SI or HI. Risk factors include some relationship strain, impulsivity. Protective factors include family, therapeutic alliance with a health care provider, and future plans. Continue current medication(s) with the following changes: Continue Fluoxetine 20 mg daily for depression but take in the evening instead of the morning. Labs ordered: None. Patient Instruction/Education provided: Patient provided verbal instructions regarding plan of care. Patient understands the plan? Yes documented in this encounter Plan of Treatment Upcoming Encounters Date Type Specialty Care Team Description 06/30/2022 TH Visit (TeleHealth) Psychiatry Ashtyn Joseph APRN [facility] [address] [place], [place] [address] (Wo rk) documented as of this encounter Visit Diagnoses Diagnosis Bipolar disorder - Primary Bipolar disorder, unspecified documented in this encounter Care Teams Fruit Or Nut Grower Relationship Specialty Start Date End Date Marlin Miramontes APRN PCP - General 06/14/13 01/25/17 documented as of this encounter
--- OUTSIDE RECORDS SUMMARY | 2022-05-26 22:02 | XMS_ITS | Encounter Summary ---
:1965 Author Organization [facility] [place] [address] Care Team Providers Name Role Phone Ayana Lai MD Primary Care Provider Encounter Details Date Type Department Care Team Description 11/13/2010 Office Visit Psychiatry and Behavioral HuNaveen MD [facility] at [facility] Yg baez [place] [address] [place] [address] [phone] (Wo rk) Social History Tobacco Use Types Packs/Day Years Used Date Never Assessed Sex Assigned at Date Recorded Female 02/11/2021 8:25 PM EDT documented as of this encounter Plan of Treatment Upcoming Encounters Date Type Specialty Care Team Description 06/30/2022 TH Visit (TeleHealth) Psychiatry Ashtyn Joseph APRN [facility] PSYCHIATRY [place], [place] [address] (Wo rk) documented as of this encounter Visit Diagnoses Not on filedocumented in this encounter Care Teams Curing Room Worker Relationship Specialty Start Date End Date Ayana Lai MD PCP - General 10/22/10 07/17/11 [address] [place], [place] [id number] documented as of this encounter
--- OUTSIDE RECORDS SUMMARY | 2022-05-26 22:02 | XMS_ITS | Encounter Summary ---
:1965 Author Organization [facility] [place] [address] Care Team Providers Name Role Phone Ayana Lai MD Primary Care Provider Reason for Visit Reason Onset Date Comments Medication Refill 09/19/2011 Encounter Details Date Type Department Care Team Description 09/19/2011 Refill Psychiatry and Behavioral David Farias MD [facility] at [facility] Yg baez [place] [address] [place] [address] [phone] (Wo rk) Social History Tobacco Use Types Packs/Day Years Used Date Never Smoker Alcohol Use Standard Drinks/Week Comments No 0 (1 standard drink = 0.6 oz pure alcoho l) Sex Assigned at Date Recorded Female 02/11/2021 8:25 PM EDT documented as of this encounter Plan of Treatment Upcoming Encounters Date Type Specialty Care Team Description 06/30/2022 TH Visit (TeleHealth) Psychiatry Ashtyn Joseph APRN [facility] [address] [place], [place] [address] (Wo rk) documented as of this encounter Visit Diagnoses Not on filedocumented in this encounter Care Teams Column Precaster Relationship Specialty Start Date End Date Ayana Lai MD PCP - General 07/18/11 03/29/13 [address] [place] [address] documented as of this encounter
--- OUTSIDE RECORDS SUMMARY | 2022-05-26 22:02 | XMS_ITS | Encounter Summary ---
:1965 Author Organization [facility] [place] [address] Care Team Providers Name Role Phone Marlin Miramontes Ashtyn CLAY Primary Care Provider Reason for Visit Reason Onset Date Comments Medication Refill 10/23/2014 Encounter Details Date Type Department Care Team Description 10/23/2014 Refill Psychiatry and Behavioral Adalberto Krishnamurthy MD Bipolar disorder Health at [facility] nest[facility] [place] [address] [place] [address] [phone] (Wo rk) Social History Tobacco Use Types Packs/Day Years Used Date Never Smoker Alcohol Use Standard Drinks/Week Comments No 0 (1 standard drink = 0.6 oz pure alcoho l) Sex Assigned at Date Recorded Female 02/11/2021 8:25 PM EDT documented as of this encounter Miscellaneous Notes Telephone Encounter - Adalberto Krishnamurthy MD - 10/23/2014 10:12 AM EST From: Shireen Badillodge To: Adalberto Krishnamurthy MD Sent: 10/23/2014 9:52 AM EST Subject: Medication Renewal Request Original authorizing provider: ADALBERTO KRISHNAMURTHY MD Shireen Silva would like a refill of the following medications: FLUoxetine (PROZAC) 20 mg tablet [ADALBERTO KRISHNAMURTHY MD] Preferred pharmacy: [id number] - [place], [place] - [address] [facility] Comment: documented in this encounter Plan of Treatment Upcoming Encounters Date Type Specialty Care Team Description 06/30/2022 TH Visit (TeleHealth) Psychiatry Ashtyn Joseph APRN [facility] PSYCHIATRY [place], [place] [address] (Wo rk) documented as of this encounter Visit Diagnoses Diagnosis Bipolar disorder Bipolar disorder, unspecified documented in this encounter Care Teams Slotter Operator Relationship Specialty Start Date End Date Marlin Miramontes APRN PCP - General 06/14/13 01/25/17 documented as of this encounter
--- OUTSIDE RECORDS SUMMARY | 2022-05-26 22:02 | XMS_ITS | Encounter Summary ---
:1965 Author Organization [facility] [place] [address] Care Team Providers Name Role Phone Ayana Lai MD Primary Care Provider Encounter Details Date Type Department Care Team Description 01/19/2013 Orders Only Psychiatry and Wendy Farias MD Medication adverse Behavioral Health at [facility] [place] [address] [place] [address] [phone] Social History Tobacco Use Types Packs/Day Years Used Date Never Smoker Alcohol Use Standard Drinks/Week Comments No 0 (1 standard drink = 0.6 oz pure alcoho l) Sex Assigned at Date Recorded Female 02/11/2021 8:25 PM EDT documented as of this encounter Plan of Treatment Upcoming Encounters Date Type Specialty Care Team Description 06/30/2022 TH Visit (TeleHealth) Psychiatry Ashtyn Joseph, MOBILE HOME INSTALLER [facility] ER [address] [place], [place] [address] (Wo rk) documented as of this encounter Visit Diagnoses Diagnosis Medication adverse effect Unspecified adverse effect of unspecifie d drug, medicinal and biological substance documented in this encounter Care Teams Jar Capper Relationship Specialty Start Date End Date Ayana Lai MD PCP - General 07/18/11 03/29/13 [address] [place], [place] [id number] documented as of this encounter
--- OUTSIDE RECORDS SUMMARY | 2022-05-26 22:02 | XMS_ITS | Encounter Summary ---
:1965 Author Organization [facility] [place] [address] Care Team Providers Name Role Phone Ayana Lai MD Primary Care Provider Reason for Visit Reason Comments Depression Encounter Details Date Type Department Care Team Description 08/17/2012 Office Visit Psychiatry and Wendy Farias MD Medication adverse effect (Primary Dx); Behavioral Health at [facility] B ipolar disorder with current episode depressed [facility] PSYCHIATRY [place] PT. [address] [phone] (Work) [phone] Social History Tobacco Use Types Packs/Day Years Used Date Never Smoker Alcohol Use Standard Drinks/Week Comments No 0 (1 standard drink = 0.6 oz pure alcoho l) Sex Assigned at Date Recorded Female 02/11/2021 8:25 PM EDT documented as of this encounter Progress Notes Don Wright MD - 08/23/2012 10:16 PM EDT [ ] I discussed this patient's situation [...] corrections, &/or additional findings: Major issues addressed/discussed: We think more aggressive approach to psychotherapy (which Ms. Silva is accomplishing by increased frequency of therapy visits), is more likely to enhance her mood than change in psychotropic meds. Additional comments: Wendy Farias MD - 08/19/2012 7:06 PM EDT MED MANAGEMENT Med Management (CPT [id number]) Location: Office Time Spent: 30 minutes Attendee(s): Patient This patient was seen with Dr. Wright. See his note for confirmatory and/or revisionary documentation. SUBJECTIVE: ?? Patient continues to struggle with similar themes of feeling unappreciated by her family and difficulty asserting herself to others in order to meet her needs. ?? Endorses depressed mood, amotivation, hopelessness (feeling that things will not change), and self-image issues. No non-lethal self injurious behaviors, SI or HI. ?? Has been seeing her therapist every three weeks who has been encouraging patient to consider outside interest. Patient was interested in taking classes at [facility] [employer] but has not called yetbecause she didn't wish to inconvenience them. Typical day consists of patient staying at home whereshe takes care of the dog and her family. ?? In reviewing mood tracker chart, patient's mood does decline further during menstrual cycle. OBJECTIVE: Pertinent Mental Status Exam (relevant findings or changes): Speech: WNL. Mood: Depressed.. Affect: Appropriate.. Associations: Intact.. Judgement: Fair.. Thought Process: Linear Logical. Abnormal/Psychotic Thoughts: No SI or HI. No AVH or delusions. Orientation: person, place, time and situation. Attention/Concentration: Alert. Medical Status: Results for SHIREEN SILVA ( ) as of 08/19/2012 18:41 Ref. Range 08/17/2012 14:31 Sodium Latest Range: 135-145 mmol/L 141 Potassium Latest Range: 3.5-5.0 mmol/L 3.4 (L) Chloride Latest Range: 98-107 mmol/L 105 CO2 Latest Range: 22-31 mmol/L 27 Anion Gap Latest Range: 5-15 mmol/L 9 BUN Latest Range: 8-18 mg/dL 14 Creatinine Latest Range: 0.70-1.20 mg/dL 0.95 Estimated GFR Latest Range: >=60 >60 Glucose Lvl Latest Range: 60-199 mg/dL 93 Calcium Latest Range: 8.5-10.5 mg/dL 9.6 [place] Lvl No range found 0.80 TSH Latest Range: 0.27-4.20 mcIU/mL 2.19 PTH Latest Range: 15-65 pg/mL 44 MEDICATIONS: Current outpatient prescriptions ordered prior to encounter Medication Sig Dispense Refill ??? zolpidem (AMBIEN) 10 mg tablet Take 1 tablet by mouth nightly as needed for Sleep. 30 tablet 2 ??? lithium (ESKALITH) 450 mg CR tablet Take 2 tablets by mouth 2 times daily. 120 tablet 5 ??? buPROPion (WELLBUTRIN XL) 150 mg 24 hr tablet Take 3 tablets by mouth every morning. 90 tablet 5 ASSESSMENT (improvement since last visit): Ms. Silva is a 47 year old female with BPaD I, most recent episode depressed who presents to clinic for follow-up. Patient with no significant change in depression since last appointment on 05/19/12. Patient continues to endorse depressed depressed mood and feelings of resentment secondary to difficulty asserting herself, poor self image issues, and feeling unappreciated by her family. Do feel that patient would benefit from regular therapy and dedicating time to an activity outside of the home. Encouraged patient to come to our next appointment with her to see his perception of patient's depression. No acute safety concerns. No adjustment in medications. Did encourage patient to speak with her PCP regarding low potassium. PLAN: 1. Continue current medications. 2. Increase frequency of therapy appointments. Patient instructed to sign a release for me to speak with her therapist. 3. Follow up with PCP regarding low potassium. 4. RTC 2 months. Patient encouraged to bring her to next appointment. Patient Instruction/Education provided: Patient provided verbal instructions regarding plan. Patient understands the plan? Depressed. documented in this encounter Plan of Treatment Upcoming Encounters Date Type Specialty Care Team Description 06/30/2022 TH Visit (TeleHealth) Psychiatry sAhtyn Joseph, ENGINEER FIRST ASSISTANT [facility] ER DR PSYCHIATRY [place] [address] (Wo rk) documented as of this encounter Results PTH (08/17/2012 2:31 PM EDT) athologist Signature PTH 44 15 - 65 CERNER pg/mL MILLENNIUM Specimen Anatomical Collection Method Collection Time Receive d Time (Source) Location / / Volume Laterality Blood specimen 08/17/2012 2:31 PM 012 2:44 (specimen) EDT PM EDT Resulting Agency Comment Spec In Lab Don Wright MD CHEMISTRY ORDERABLES Performing Organization Address City/State/ZIP Code Phon e Number [address] CERNER MILLENNIUM TSH (08/17/2012 2:31 PM EDT) athologist Signature TSH 2.19 0.27 - 4.20 CERNER mcIU/mL MILLENNIUM Specimen Anatomical Collection Method Collection Time Receive d Time (Source) Location / / Volume Laterality Blood specimen 08/17/2012 2:31 PM 012 2:44 (specimen) EDT PM EDT Resulting Agency Comment Spec In Lab Don Wright MD CHEMISTRY ORDERABLES Performing Organization Address City/State/ZIP Code Phon e Number [address] CERNER MILLENNIUM [place] level (08/17/2012 2:31 PM EDT) athologist Signature [place] Lvl 0.80 mmol/L CERNER MILLENNIUM Comment: Therapeutic [...] Organization Address City/State/ZIP Code Phon e Number [address] LABOR[address] [facility] documented in this encounter Visit Diagnoses Diagnosis Medication adverse effect - Primary Unspecified adverse effect of unspecifie d drug, medicinal and biological substance Bipolar disorder with current episode de pressed Bipolar I disorder, most recent episode (or current) depressed, unspecified documented in this encounter Care Teams Clinical Psychologist Licensed Relationship Specialty Start Date End Date Ayana Lai MD PCP - General 07/18/11 03/29/13 [address] [place] [address] documented as of this encounter
--- OUTSIDE RECORDS SUMMARY | 2022-05-26 22:02 | XMS_ITS | Encounter Summary ---
:1965 Author Organization [place] [address] Care Team Providers Name Role Phone Ayana Lai MD Primary Care Provider Reason for Visit Reason Onset Date Comments Medication Refill 01/19/2013 Encounter Details Date Type Department Care Team Description 01/19/2013 Refill Psychiatry and Behavioral David Farias MD [facility] at [facility] Yg bae[place] [address] [place] [address] [phone] (Wo rk) Social History Tobacco Use Types Packs/Day Years Used Date Never Smoker Alcohol Use Standard Drinks/Week Comments No 0 (1 standard drink = 0.6 oz pure alcoho l) Sex Assigned at Date Recorded Female 02/11/2021 8:25 PM EDT documented as of this encounter Plan of Treatment Upcoming Encounters Date Type Specialty Care Team Description 06/30/2022 TH Visit (TeleHealth) Psychiatry Ashtyn Joseph APRN [facility] ER [address] [place], [place] [address] (Wo rk) documented as of this encounter Visit Diagnoses Not on filedocumented in this encounter Care Teams County Program Technician Relationship Specialty Start Date End Date Ayana Lai MD PCP - General 07/18/11 03/29/13 [address] [place] [address] documented as of this encounter
--- OUTSIDE RECORDS SUMMARY | 2022-05-26 22:02 | XMS_ITS | Encounter Summary ---
:1965 Author Organization [facility] [place] [address] Care Team Providers Name Role Phone Ayana Lai MD Primary Care Provider Reason for Visit Reason Onset Date Comments Medication Refill 11/16/2012 Encounter Details Date Type Department Care Team Description 11/16/2012 Refill Psychiatry and Behavioral David Farias MD [facility] at [facility] Y[facility]ae[facility] [place] [address] [place] [address] [phone] (Wo rk) Social History Tobacco Use Types [...] Visit (TeleHealth) Psychiatry Ashtyn Joseph APRN [facility] ER [address] [place], [place] [address] (Wo rk) documented as of this encounter Visit Diagnoses Not on filedocumented in this encounter Care Teams Development Team Lead Relationship Specialty Start Date End Date Ayana Lai MD PCP - General 07/18/11 03/29/13 [address] [place] [address] documented as of this encounter
--- OUTSIDE RECORDS SUMMARY | 2022-05-26 22:02 | XMS_ITS | Encounter Summary ---
:1965 Author Organization [facility] [place] [address] Care Team Providers Name Role Phone Kulwinder Marlin Chamorro APRN Primary Care Provider Reason for Visit Reason Comments Depression Anxiety Encounter Details Date Type Department Care Team Description 10/02/2014 Office Visit Psychiatry and Rupali Palomo, Bipolar disorder Behavioral Health at MD (Primary Dx) [facility] [address] PSYCHIATRY DEPT [place] [phone] [phone] Social History Tobacco Use Types Packs/Day Years Used Date Never Smoker Alcohol Use Standard Drinks/Week Comments No 0 (1 standard drink = 0.6 oz pure alcoho l) Sex Assigned at Date Recorded Female 02/11/2021 8:25 PM EDT documented as of this encounter Last Filed Vital Signs Vital Sign Reading Time Taken Comments Blood Pressure 129/61 10/02/2014 2:15 PM EST Pulse 62 10/02/2014 2:15 PM EST Temperature - - Respiratory Rate 18 10/02/2014 2:15 PM EST Oxygen Saturation - - Inhaled Oxygen Concentration - - Weight 62.6 kg (138 lb) 10/02/2014 2:15 PM EST Height 167.6 cm (5' 6) 10/02/2014 2:15 PM EST Body Mass Index 22.27 10/02/2014 2:15 PM EST documented in this encounter Progress Notes Zhanna Lorenzo MD - 10/08/2014 1:02 PM EST PSYCHIATRY TEACHING PHYSICIAN INVOLVEMENT Location: [...] them as documented. Major issues addressed/discussed: We discussed her use of a supplement and its possible risks and benefits. She is not interested in any major changes in her regimen and believes the supplement has overall been helpful. Additional comments: none Rupali Palomo MD - 10/02/2014 9:36 AM EST ESTABLISHED ADULT PATIENT OFFICE VISIT NOTE Time Spent: 30 minutes Attendee(s): Patient, this conventional underwriter. This patient was seen with Dr. Zhanna Lorenzo. See her note for confirmatory and/or revisionary documentation. HISTORY Chief Complaint: Shireen Silva is a 49 y.o. woman who presents today for follow-up of her mood disorder. HPI: () Since last seen in clinic, Shireen says she is doing pretty good. I think changing the Fluoxetine to the evening is better, as she splits her meds into AM and PM doses and does not take all at the same time. She notes that her mood has been pretty good. Last week, it was my period and that usually hits me hard. In terms of her anxiety, she reports, day to day, it's okay. She has had more episodes of feeling more on the verge of a panic attack, and recently had one that came out of the blue. Shedoes not know what triggered that attack, as she has the same stressors, primarily her finances and her kids. She observes that in general, things are okay at home. She denies SI or HI and reports hearing noises and music sometimes but never voices. She has not been manic. At this point, Shireen feels that she does not need to increase the Fluoxetine dose and requests to hold that option until she really needs it. Most recent labs: Component Latest Ref Rng 06/12/2014 04/06/2014 08/17/2013 Sodium 137 - 147 140 144 143 Potassium 3.4 - 5.3 4.1 4.3 4.3 Chloride 99 - 108 105 107 107 CO2 22 - 29 28 29 27 BUN 14 12 15 Creatinine 1 1 1 Glucose Lvl 91 88 79 Calcium 8.7 - 10.7 9.3 9.3 8.9 TSH 1.48 1.24 1.03 Rumson Lvl 0.61 0.4 (L) 0.41 (L) Quality: In terms of depression, seems calm and less distressed. In good humor. Severity: Based on PHQ9, mildly depressed. No active SI and no HI; no hypo/diana or cutting. No SI or HI. Duration: No change in depression since last appointment. Context: No new stressors, things okay at home. Modifying factors: Fluoxetine has helped and is more tolerable now that she has moved it to nighttime. Associated S&S: Sleep is okay. Appetite is okay. Has mild intention tremor likely from Rumson use that does not interfere with her function. Most recent PHQ9: PHQ9 09/29/2014 Little interest or pleasure Several days Down, depressed, hopeless Several days Trouble sleeping Not at all Tired or no energy Several days Poor appetite or overeating Several days Feeling like a failure Several days Trouble concentrating (newspaper) Not at all Moving or speaking slowly Not at all Would be better off Not at all PHQ9 Scores 5 (Mild Depression) Current Medications: Current Outpatient Prescriptions Medication Sig Dispense Refill ??? UNABLE TO FIND Med Name: [employer] Body protein shakes. Per website, each contains [...] tablet 5 ??? zolpidem (AMBIEN) 10 mg Tablet Take 1 tablet by mouth nightly as needed for Sleep. 30 tablet 3 ??? lithium (LITHOBID) 300 mg Tablet Sustained Release Take 2 tablets by mouth 2 times daily. 120 tablet 3 ??? LORazepam (ATIVAN) 0.5 mg Tablet Take 1 tablet by mouth every 6 hours as needed (panic attacks).7 tablet 0 ??? FLUoxetine (PROZAC) 20 mg tablet Take 1 tablet by mouth daily. 30 tablet 3 ??? fexofenadine (OVIDIO) 60 [...] Constitutional: No recent fevers or chills. Sleeping okay, appetite okay. Eyes: Not wearing corrective lenses. ENT: No sore throats or dysphagia. Cardiovascular: No CP or palpitations. Respiratory: No cough or SOB. GI: No GI upset, N/V. No constipation or diarrhea. : Endorses difficulty with PMS (increased anger, head feels noisy or fuzzy). No dysuria. Musculoskeletal: No aches or pains currently. Integumentary: No rashes or lesions. Neurological: No seizures or BARRIGA. Has noticed a little hand tremor mostly with movement but does not feel it interferes with her life (likely from Rumson). Psychiatric: See HPI above. Endocrine: History of [...] 2006 and had seen Karen Mallory in [facility] (therapist) for years. Currently under the care of Harsh Carranza in [place], [place] (for the past 1 year). #Prior [...] but reported to have caused a rash), Rumson (Eskalith, current medication), Bupropion XL (current medication), Eszopiclone (ineffective for sleep), Oxazepam (ineffective for anxiety), Clonazepam,Zolpidem (current medication). Update (10/02) - Takes [employer] Body shakes and finds them helpful. Based on the contents (per the [employer] website and see Medication List), some drug- drug interactions need to be monitored. - Ashwagandha can be sedating when used with FLAT KNITTER HELPER depressants (i.e. Clonazepam), and can increase thyroid hormone levels. - Astragalus can cause increases in serum Rumson level. - Reishi mushrooms can slow clotting and cause hypotension. - Schisandra can worsen GERD symptoms and interfere with metabolism via the 2C9 and 3A4 Emd098 enzymes. Family Psychiatric and Medical History: Brother with alcohol use disorder, possible Bipolar disorder. Paternal grandmother with unknown psychiatric diagnosis but history of psychiatric hospitalization.Paternal uncle and cousins with unknown psychiatric diagnoses but multiple suicide attempts. Social History: Born in [facility]; has 1 older brother and 2 older sisters. Has a bachelor's degree in Psychology. Had first manic episode per report in college, lasting 2-3 months. 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 Currently lives in [place], [place] with her . Has three sons (aged 13, 20, and 22) all living at home; youngest has been recipient of psychiatric care at [facility] for years for behavioral [...] Constitutional System ? Vital Signs: Blood pressure 129/61, pulse 62, resp. rate 18, height 167.6 cm (5' 6), weight 62.596 kg (138 lb). Musculoskeletal System ? Muscle Strength/Tone (note [...] very nervous grin. Neatly dressed for the weather. Less PMA than previously, less fidgety. Cooperative. ? Speech: Normal rate, [...] good. ? Mood & Affect: Mood is pretty good. Affect is constricted, mood-congruent. Anxious laughter. ? Orientation: Grossly oriented to self, date, location, situation. ? Attention/Concentration: Attends to conversation, answers questions appropriately. Does not seem to be responding to internal stimuli. ? Memory: No gross deficits in recent or remote recall. ? Language: Normal Montserratian. No word-finding difficulties. ? Fund of Knowledge: Seems appropriate for age and experience. Psychotherapeutic Interventions and Response: Active listening, with positive response. MEDICAL DECISION MAKING ASSESSMENT: Shireen Silva is a 49 y.o. woman with a history of the diagnosis of Bipolar 1 disorder,most recent episode depressed and MALVIN. Her depression and daytime sleepiness have continued to improve with shifting her Fluoxetine 20 mg to bedtime rather than breakfast. She is not suicidal, not homicidal, not hypo/manic, and not psychotic. At this time, she does not feel increasing her Fluoxetine dose to 30 mg is necessary and prefers to keep her regimen as it is. She will return to clinic in 3 months. PLAN: Safety Risk Management: No SI or HI. Risk factors include some relationship strain, impulsivity. Protective factors include family, therapeutic alliance with a health care provider, and future plans. Continue current medication(s) with the following changes: Continue Fluoxetine 20 mg qhs. If mood declines, will consider increasing to 30 mg qhs. Labs ordered: None. Patient Instruction/Education provided: Patient provided verbal instructions regarding plan of care.Encouraged to be mindful of contents of nutritional supplements given potential for adverse interactions with psychiatric medications. Patient understands the plan? Yes documented in this encounter Plan of Treatment Upcoming Encounters Date Type Specialty Care Team Description 06/30/2022 TH Visit (TeleHealth) Psychiatry Ashtyn Joseph APRN [facility] [address] [place], [place] [address] (Wo rk) documented as of this encounter Visit Diagnoses Diagnosis Bipolar disorder - Primary Bipolar disorder, unspecified documented in this encounter Care Teams Gas Main And Line Fitter Relationship Specialty Start Date End Date Marlin Miramontes, DANNA PCP - General 06/14/13 01/25/17 documented as of this encounter
--- OUTSIDE RECORDS SUMMARY | 2022-05-26 22:02 | XMS_ITS | Encounter Summary ---
:1965 Author Organization [facility] [place] [address] Care Team Providers Name Role Phone MiramontesAniyasudha Chamorro APRN Primary Care Provider Encounter Details Date Type Department Care Team Description 08/20/2015 Office Visit Psychiatry and Austin Wolfe, Bipolar I disorder, Behavioral Health at MD most recent episode [facility] (or current) [facility] [address] eman[address], in [address] PSYCHIATRY or unspecified [place] [id number] [phone] [phone] Social History Tobacco Use Types Packs/Day Years Used Date Never Smoker Alcohol Use Standard Drinks/Week Comments No 0 (1 standard drink = 0.6 oz pure alcoho l) Sex Assigned at Date Recorded Female 02/11/2021 8:25 PM EDT documented as of this encounter Last Filed Vital Signs Vital Sign Reading Time Taken Comments Blood Pressure 125/60 08/20/2015 12:46 PM EDT Pulse 56 08/20/2015 12:46 PM EDT Temperature - - Respiratory Rate - - Oxygen Saturation - - Inhaled Oxygen Concentration - - Weight 65.8 kg (145 lb) 08/20/2015 12:46 PM EDT Height 167.6 cm (5' 6) 08/20/2015 12:46 PM EDT Body Mass Index 23.4 08/20/2015 12:46 PM EDT documented in this encounter Progress Notes Zhanna Lorenzo MD - 08/25/2015 2:33 PM EDT PSYCHIATRY TEACHING PHYSICIAN INVOLVEMENT Location: [...] issues addressed/discussed: The patient continues to experience excessive depression, and she is certain that the only thing that will help is additional fluoxetine. We, in turn, counter with concerns about antidepressant induced diana. She had previously accepted a compromise of starting fluoxetine under the condition that she accept and increase in lithium. Her level at present is 0.73. We inquired about early warning signs of diana. None are present currently. She is aware that her interestlevel will increase dramatically and that she will spend money excessively. She doesn't think she has anyone in her life who can provide her with feedback about this. She has taken the step of giving up credit cards, however. We will increase fluoxetine to 20 mg and monitor carefully. Additional comments: none Austin Wolfe MD - 08/20/2015 10:47 AM EDT ESTABLISHED ADULT PATIENT OFFICE VISIT NOTE Time Spent: 30 min Attendee(s): pt This patient was seen with Dr. Zhanna Lorenzo. See her note for confirmatory and/or revisionary documentation. HISTORY Chief Complaint: Shireen Silva is a 50 y.o. Female presents today for medication management/follow up HPI: () Patient reports that nothing has changed since her last appointment here. She was able to increase her dose of lithium and last level drawn was 0.73, so she started back on 10 mg of Prozac. She reports that she has had no side effects from the increased lithium, and has had no side effects from starting the Prozac. She feels that there has been no effect on her mood, but that this is consistent withher last experience with Prozac, which didn't start to help until around 30 mg. She continues to experience significant amotivation, low interest, and low mood. She feels that her sleep has remained stable, around 6 hrs/night with Ambien. She reports having a panic episode in the middle of the night about a month ago, but did not need to use lorazepam, and states she has not beenusing it. She denies any symptoms of diana, including euphoria, irritability, grandiosity, distractibility, or impulsivity. She is unable to say what might be early warning signs of diana for her, and does not think there would be anything that anyone around her might notice should she start to become manic. Quality: the same Severity: mod Duration: chronic Timing: daily Context: recently re-started Prozac, increased lithium Modifying factors: none so far Associated S&S: apathy/amotivation Most recent PHQ9: PHQ9 08/16/2015 Little interest or pleasure Nearly every day [...] mouth every morning. 30 tablet 5 ??? UNABLE TO FIND Med Name: [employer] Body protein shakes. Per website, each contains [...] by mouth daily. 30 tablet 1 ??? LORazepam (ATIVAN) 0.5 mg Tablet Take 1 tablet by mouth every 6 hours as needed (panic attacks).7 tablet 3 No current facility-administered medications for this visit. Pertinent Medication Side Effects: denies Review of Systems: (12/01/09) Constitutional: denies sedation Eyes: ENT: Cardiovascular: Respiratory: GI: denies nausea/vomiting, abdominal discomfort : Musculoskeletal: Integumentary: Neurological: denies tremor, headache Psychiatric: See HPI above Endocrine: Hematologic/Lymphatic: Allergic/Immunological: See reviewed allergies PFSH: () Past Medical/Psychiatric History: no interval change Family Psychiatric and Medical History: no interval change Social History: living at home with two children, , and several dogs. Not working. States shewould like to get another pet. EXAM [05/08/14 bullets (incl VS)] Constitutional System ? Vital Signs: Blood pressure 125/60, pulse 56, height 167.6 cm (5' 6), weight 65.772 kg (145 lb). Musculoskeletal System ? Muscle Strength/Tone (note atrophy, abnormal movements): no abnormalities noted ? Gait and Station: WN Psychiatric System ? General Appearance/Behavior: female patient, casually and appropriately groomed/dressed, sitting in chair, interactive/cooperative, with normal eye contact ? Speech: normal volume/rate/prosody ? Thought Process: linear, coherent, goal-directed ? Associations: tight ? Abnormal Thoughts and Perceptions / Thought Content: Homicidality / Violent Thoughts: denies Suicidality: endorses chronic baseline thoughts that life might not be worth living, denies plan/intent Hallucinations: denies Delusions: denies Obsessions: denies ? Judgment and Insight: fair ? Mood & Affect: depressed/anxious ? Orientation: x 3 ? Attention/Concentration: alert/attentive without need for redirection ? Memory: grossly intact ? Language: fluent ? Fund of Knowledge: average Psychotherapeutic Interventions and Response: n/a MEDICAL DECISION MAKING ASSESSMENT: Shireen Silva is a 50 y.o. Female with BPAD. Her symptoms are unchanged. Patient continues to feel that her mood is low and has not responded to medication adjustments so far. We reiterated the risks of manic behavior with further titration of the SSRI, and challenged patient to consider ways that she might help herself and others around her identify early warning signs, and to protect herself (e.g asking her bank to limit the amount she can withdraw at once). She does note that she hasno credit cards at this time. We will increase the Prozac to 20 mg daily and have patient return to 4 weeks or so for follow up. PLAN: Continue current medication regimen with the following adjustment - Increase fluoxetine to 20 mg daily Patient to have lithium level and BMP obtained prior to next appointment RTC in 4 weeks Patient Instruction/Education provided: Patient provided verbal instructions regarding treatment plan. Patient understands the plan? Yes documented in this encounter Plan of Treatment Upcoming Encounters Date Type Specialty Care Team Description 06/30/2022 TH Visit (TeleHealth) Psychiatry Ashtyn Joseph APRN [facility] [address] [place], [place] [address] (Wo rk) documented as of this encounter Results Basic Metabolic Panel (non-fasting) (09/24/2015 9:27 AM EDT) athologist Signature Glucose Lvl 79 65 - 199 CERNER mg/dL MILLENNIUM Comment: Diabetes: >=200 mg/dL plus symp toms BUN 15 8 - 18 mg/dL CERNER MILLENNIUM Creatinine 0.84 0.70 - 1.20 mg/dL CERNER MILL ENNIUM Comment: Please note that the pediatric reference intervals supplied above were not validated at [facility]. Results from pediatri c patients should be interpreted in conjunction to the patient's age, height and muscle mass. Sodium 142 135 - 145 mmol/L CERNER MELIZA NIUM Potassium 4.1 3.5 - 5.0 mmol/L CERNER MELIZA NIUM Comment: Please note: ??Patients with WBC >100,00 0 may have falsely elevated Potassium levels. ??For accurate Potassium quantif ication in these patients send serum separator tube (gold top) for subsequent determinations. ??Contact the Clinical Chemistry Laboratory if there are any qu estions. Chloride 104 98 - 107 mmol/L CERNER MILLENN IUM CO2 26 22 - 31 mmol/L CERNER MILLENNI UM Anion Gap 12 5 - 15 mmol/L CERNER MILLENNIU M Calcium 9.0 8.5 - 10.5 mg/dL CERNER MELIZA NIUM Estimated GFR >60 >=60 CERNER MILLENNIU M Comment: This estimated GFR (eGFR) value was [...] the following links into your internet browser. [email or web address] Specimen Anatomical Collection Method Collection Time Receive d Time (Source) Location / / Volume Laterality Blood specimen 09/24/2015 9:27 AM 015 9:36 (specimen) EDT AM EDT Resulting Agency Comment Spec In Lab Zhanna Lorenzo MD CHEMISTRY ORDERABLES Performing Organization Address City/State/ZIP [place] [address] [facility] [address] CERNER MILLENNIUM [place] level (09/24/2015 9:27 AM EDT) P athologist Signature [place] Lvl 0.62 mmol/L CERNER MILLENNIUM Comment: Therapeutic level for bipolar depression : 0.60-1.20 mmol/L Action Level: ?? Acute toxicity: ?>4.00 mmol/L ?? Chronic toxicity: ??>1.50 mmol/L Values greater than or equal to the acti on level necessitate clinical intervention. ??Values less than this le raeann may necessitate intervention based on clinical condition of the patient. Ref: ??Goldjoi? s Toxicologic Emergencies 6th ed 1997; p. 967 Specimen Anatomical Collection Method Collection Time Receive d Time (Source) Location / / Volume Laterality Blood specimen 09/24/2015 9:27 AM 015 9:36 (specimen) EDT AM EDT Resulting Agency Comment Spec In Lab Zhanna Lorenzo MD CHEMISTRY ORDERABLES Performing Organization Address [facility]/ZIP [facility] [place] [address] [facility] [address] [facility] documented in this encounter Visit Diagnoses Diagnosis Bipolar I disorder, most recent episode (or current) depressed, in partial or unspecified remission documented in this encounter Care Teams Oven Builder Relationship Specialty Start Date End Date Marlin Miramontes APRN PCP - General 06/14/13 01/25/17 documented as of this encounter
--- OUTSIDE RECORDS SUMMARY | 2022-05-26 22:02 | XMS_ITS | Encounter Summary ---
:1965 Author Organization [facility] [place] [address] Care Team Providers Name Role Phone Ayana Lai MD Primary Care Provider Reason for Visit Reason Onset Date Comments Medication Refill 03/17/2012 Encounter Details Date Type Department Care Team Description 03/17/2012 Refill Psychiatry and Behavioral David Farias MD [facility] at [facility] Yg baez [place] [address] [place] [address] [phone] (Wo rk) Social History Tobacco Use Types [...] Ashtyn Joseph APRN [facility] ER [address] [place], [place] [address] (Wo rk) documented as of this encounter Visit Diagnoses Not on filedocumented in this encounter Care Teams Supervisor Model Making Relationship Specialty Start Date End Date Ayana Lai MD PCP - General 07/18/11 03/29/13 [address] [place] [address] documented as of this encounter
--- OUTSIDE RECORDS SUMMARY | 2022-05-26 22:02 | XMS_ITS | Encounter Summary ---
:1965 Author Organization [facility] [place] [address] Care Team Providers Name Role Phone Ayana Lai MD Primary Care Provider Reason for Visit Reason Onset Date Comments Medication Refill 06/10/2011 Encounter Details Date Type Department Care Team Description 06/10/2011 Refill Psychiatry and Behavioral David Farias MD Health at [facility] Yg baez [place] [address] [place] [address] [phone] (Wo rk) Social History Tobacco Use Types Packs/Day Years Used Date Never Smoker Alcohol Use Standard Drinks/Week Comments No 0 (1 standard drink = 0.6 oz pure alcoho l) Sex Assigned at Date Recorded Female 02/11/2021 8:25 PM EDT documented as of this encounter Miscellaneous Notes Telephone Encounter - Wendy Farias MD - 06/11/2011 3:01 PM EDT Returned call from Ms. Silva regarding a refill of her Zolpidem 10mg po qhs, Alpha 900mg po bid and Buproprion XL 450mg po qam. Patient reports that she is tolerating her medication to good effect. With the exception of Zolpidem which was called in, her prescriptions were efaxed to [facility]. documented in this encounter Plan of Treatment Upcoming Encounters Date Type Specialty Care Team Description 06/30/2022 TH Visit (TeleHealth) Psychiatry Ashtyn Joseph APRN [facility] [address] [place], [place] [address] (Wo rk) documented as of this encounter Visit Diagnoses Not on filedocumented in this encounter Care Teams Senior Field Engineer Relationship Specialty Start Date End Date Ayana Lai MD PCP - General 10/22/10 07/17/11 [address] [place] [address] documented as of this encounter
--- OUTSIDE RECORDS SUMMARY | 2022-05-26 22:02 | XMS_ITS | Encounter Summary ---
:1965 Author Organization [facility] [place] [address] Care Team Providers Name Role Phone Ayana Lai MD Primary Care Provider Reason for Visit Reason Comments Depression Encounter Details Date Type Department Care Team Description 03/15/2013 Office Visit Psychiatry and Wendy Farias MD Bipolar disorder with Behavioral Health at [facility] c urrent episode [facility] depressed (Primary Dx) [facility] [place] [address] [place], [place] [phone] (Work) [phone] Social History Tobacco Use Types Packs/Day Years Used Date Never Smoker Alcohol Use Standard Drinks/Week Comments No 0 (1 standard drink = 0.6 oz pure alcoho l) Sex Assigned at Date Recorded Female 02/11/2021 8:25 PM EDT documented as of this encounter Progress Notes Don Wright MD - 03/27/2013 10:05 PM EDT [ ] I discussed this [...] corrections, &/or additional findings: Major issues addressed/discussed: Some psychological problems have arisen in her relationship with her family which will be addressed in psychotherapy. No med changes were thought to be required. Additional comments: Wendy Farias MD - 03/15/2013 8:23 PM EDT ESTABLISHED ADULT PATIENT OFFICE VISIT NOTE Time Spent: 30 min Attendee(s): Patient This patient was seen with Dr. Wright. See his note for confirmatory and/or revisionary documentation. HISTORY Chief Complaint: Shireen Silva is a 47 y.o. Female presents today with depression. HPI: The severity of associated signs and symptoms over the past 2 weeks are recorded in PHQ9 responses as follows: PHQ9 Depression Screening: PHQ9 03/11/2013 Little interest or pleasure Several days Down, depressed, hopeless Several days Trouble sleeping Not at all Tired or no energy Several days Poor appetite or overeating Not at all Feeling like a failure Several days Trouble concentrating (newspaper) Several days Moving or speaking slowly Not at all Would be better off Not at all PHQ9 Scores 5 (Mild Depression) Quality: Had been doing fairly well till she developed shoulder injury. This triggered thoughts of feeling unappreciated by her family which led to irritability. Context: Last saw therapist three weeks ago and will see her again tomorrow. Has not been able to exercise for the last two weeks. Modifying factors: Taking medication as prescribed with no medication side effects. Wyocena level 0.39. Associated S&S: Complaining of pain secondary to stress injury to L shoulder. Will be starting physical therapy next week. Current Medications: Current Outpatient Prescriptions Medication Sig Dispense Refill ??? lithium (ESKALITH) 450 mg CR tablet Take 2 tablets by mouth 2 times daily. 120 tablet 5 ??? zolpidem (AMBIEN) 10 mg tablet Take 1 tablet by mouth nightly as needed for Sleep. 30 tablet 4 ??? buPROPion (WELLBUTRIN XL) 150 mg 24 hr tablet Take 3 tablets by mouth every morning. 90 tablet 5 Pertinent Medication Side Effects: None Review of Systems: (12/01/09) Constitutional: no fatigue Musculoskeletal: +L shoulder pain Psychiatric: See HPI above Allergic/Immunological: See reviewed allergies PFSH: Past Medical/Psychiatric History: Patient Active Problem List Diagnoses ??? Bipolar disorder ??? Thyroid cyst Overview Note: Family Psychiatric and Medical History: No new updates Social History: Has not been able to exercise in the last two weeks due to stress injury. EXAM Constitutional System ? Vital Signs: There were no vitals taken for this visit. Musculoskeletal System ? Muscle Strength/Tone (note atrophy, abnormal movements): Normal tone. No abnormal movements. ? Gait and Station: No unsteadiness on casual gait. Psychiatric System ? General Appearance/Behavior: 47 year old female who appears stated age, no PMR or PMA, casually dressed, good hygiene, pleasant and cooperative ? Speech: normal ? Thought Process: linear, logical, goal directed ? Associations: intact ? Abnormal Thoughts and Perceptions / Thought Content: none Homicidality / Violent Thoughts: none Suicidality: none Hallucinations: none Delusions: none Obsessions: none ? Judgment and Insight: good ? Mood & Affect: good full, congruent affect ? Orientation: alert & oriented x3 ? Attention/Concentration: attentive during interview ? Memory: grossly intact ? Language: fluent ? Fund of Knowledge: appropriate to level of education MEDICAL DECISION MAKING ASSESSMENT: Shireen Silva is a 47 y.o. Female with BPaD I, most recent episode depressed who presents to clinic for follow-up. Last appointment on 09/14/12 at which time time joined session. It was recommended to start couples therapy, which patient did not pursue. Since last appointment, patient had been doing fairly well till she developed a shoulder injury which triggered perception of being unappreciated by her family. Have encouraged patient to follow up with therapist regarding cognitive distortions. Will maintain current medications with no adjustment of dose. PLAN: 1. Continue current medications. 2. Continue individual therapy. 3. RTC 5 months. Patient Instruction/Education provided: Patient provided verbal instructions regarding plan. Patient understands the plan? Yes documented in this encounter Plan of Treatment Upcoming Encounters Date Type Specialty Care Team Description 06/30/2022 TH Visit (TeleHealth) Psychiatry Ashtyn Joseph, PROFESSIONAL ARCHITECT [facility] [address] [place], [place] [address] (Wo rk) documented as of this encounter Visit Diagnoses Diagnosis Bipolar disorder with current episode de pressed - Primary Bipolar I disorder, most recent episode (or current) depressed, unspecified documented in this encounter Care Teams Cager Operator Relationship Specialty Start Date End Date Ayana Lai MD PCP - General 07/18/11 03/29/13 [address] [place] [address] documented as of this encounter
--- OUTSIDE RECORDS SUMMARY | 2022-05-26 22:02 | XMS_ITS | Encounter Summary ---
:1965 Author Organization [facility] [place] [address] Care Team Providers Name Role Phone Marlin Miramontes DANNA Primary Care Provider Reason for Visit Reason Onset Date Comments Medication Refill 09/22/2014 Encounter Details Date Type Department Care Team Description 09/22/2014 Refill Psychiatry and Adalberto Krishnamurthy MD Bipolar disorder Behavioral Health at [facility] ( Primary Dx) [facility] PSYCHIATRY [place] [id number] [place] [address] [phone] Social History Tobacco Use Types Packs/Day Years Used Date Never Smoker Alcohol Use Standard Drinks/Week Comments No 0 (1 standard drink = 0.6 oz pure alcoho l) Sex Assigned at Date Recorded Female 02/11/2021 8:25 PM EDT documented as of this encounter Miscellaneous Notes Telephone Encounter - Adalberto Krishnamurthy MD - 09/22/2014 1:59 PM EDT From: Shireen Gladys To: Adalberto Krishnamurthy MD Sent: 09/22/2014 1:01 PM EDT Subject: Medication Renewal Request Original authorizing provider: ADALBERTO KRISHNAMURTHY MD Shireen Silva would like a refill of the following medications: buPROPion (WELLBUTRIN XL) 300 mg 24 hr tablet [ADALBERTO KRISHNAMURTHY MD] Preferred pharmacy: [id number] - [place], [place] - [address] Comment: documented in this encounter Plan of Treatment Upcoming Encounters Date Type Specialty Care Team Description 06/30/2022 TH Visit (TeleHealth) Psychiatry Ashtyn Joseph, PROCEDURAL NURSE [facility] [address] [place], [place] [address] (Wo rk) documented as of this encounter Visit Diagnoses Diagnosis Bipolar disorder - Primary Bipolar disorder, unspecified documented in this encounter Care Teams Line Assigner Relationship Specialty Start Date End Date Marlin Miramontes, PROCEDURAL NURSE PCP - General 06/14/13 01/25/17 documented as of this encounter
--- OUTSIDE RECORDS SUMMARY | 2022-05-26 22:02 | XMS_ITS | Encounter Summary ---
:1965 Author Organization [facility] [place] [address] Care Team Providers Name Role Phone Ayana Lai MD Primary Care Provider Encounter Details Date Type Department Care Team Description 07/08/2012 Orders Only Psychiatry and Behavioral David Farias MD [facility] Yg baez [place] [address] [place] [address] [phone] (Wo rk) Social History Tobacco Use Types [...] Visit (TeleHealth) Psychiatry Ashtyn Joseph APRN [facility] PSYCHIATRY [place], [place] [address] (Wo rk) documented as of this encounter Visit Diagnoses Not on filedocumented in this encounter Care Teams Senior Climate Advisor Relationship Specialty Start Date End Date Ayana Lai MD PCP - General 07/18/11 03/29/13 [address] [place] [address] documented as of this encounter
--- OUTSIDE RECORDS SUMMARY | 2022-05-26 22:02 | XMS_ITS | Encounter Summary ---
:1965 Author Organization [facility] [place] [address] Care Team Providers Name Role Phone Ayana Farrar MD Primary Care Provider Reason for Referral Psychiatric (Routine) - Closed Specialty Diagnoses / Procedures Referred By Contact Refer red To Contact Psychiatry Diagnoses Bipolar I disorder, most recent episode (or current) depressed, Marlen Cartwright MD [facility] 5d PSYCHIATRY DEPT. [facility] [place] [address] [place] [address] Phone: Fax: Referral ID Status Reason Start Date Expiration Date Visits V isits Requested Authorized [id number] Closed Assume 05/22/2011 11/18/2011 1 1 Subset of Care Encounter Details Date Type Department Care Team Description 05/22/2011 Orders Only Psychiatry and Kelton Diaz MD Bipolar I disorder, Behavioral Health at [facility] m ost recent episode [facility] DR (or current) [facility] PSYCHIATRY DE PT. depressed, [place] [address] (Primary Dx) [place] [phone] Social History Tobacco Use Types Packs/Day Years Used Date Never Smoker Alcohol Use Standard Drinks/Week Comments No 0 (1 standard drink = 0.6 oz pure alcoho l) Sex Assigned at Date Recorded Female 02/11/2021 8:25 PM EDT documented as of this encounter Progress Notes Marlen Morocho MD - 05/22/2011 2:15 PM EDT Psychiatry Off Service Note Name of new provider (if known): Please refer to diagnostic evaluation or comprehensive note on: blue chart at [facility] for initial eval,also 10/09/08, 08/21/10, 03/19/11. 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 Has been stable overall for the past 3 years. Doing well on current meds and they have not been changed in the past2 years. Last labs in 07/2010 - all nl, will need new labs in July. Pt will f/up in May-Jun with a new resident and call if questions/concerns. Current medications: per [facility] No outpatient prescriptions have been marked as taking for the 05/22/11 encounter (Orders Only) with KELTON DIAZ. Allergies: Allergies as of 05/22/2011 ??? (No Known Allergies) Relevant prior medication trials: Klonopin - only prn, Serax - prn instead of klonopin. Never overuses, but if uses more than usual - indication of increased stress at home. Has therapist at home. Additional Information to facilitate quality care (include direction of treatment, relevant general medical issues, labs, imaging, or concerns about patters of medication use): Name and contact information for clinicians on care team: PCP: AYANA FARRAR MD Therapist: mechanical project manager: Diagnosis: Golden I: BPAD (MRE mixed - unspecified) and MALVIN Subjective: Patient ID: Shireen Silva is a 46 y.o. female. HPI Review of Systems Objective: Physical Exam Assessment and Plan: No problem-specific visit notes found for this encounter. documented in this encounter Plan of Treatment Upcoming Encounters Date Type Specialty Care Team Description 06/30/2022 TH Visit (TeleHealth) Psychiatry Ashtyn Joseph, INSIDE SALES ACCOUNT EXECUTIVE [facility] ER PSYCHIATRY [place], [place] [address] (Wo rk) Scheduled Referrals Name Type Priority Associated Diagnoses Order [facility] Psychiatry Outpatient Referral Routine Bipolar I disorder, m ost Ordered: 05/22/2011 recent episode (or current) depressed, mild documented as of this encounter Visit Diagnoses Diagnosis Bipolar I disorder, most recent episode (or current) depressed, mild - Primary documented in this encounter Care Teams System Designer Relationship Specialty Start Date End Date Ayana Farrar MD PCP - General 10/22/10 07/17/11 [address] [place] [address] documented as of this encounter
--- OUTSIDE RECORDS SUMMARY | 2022-05-26 22:02 | XMS_ITS | Encounter Summary ---
:1965 Author Organization [facility] [place] [address] Care Team Providers Name Role Phone Marlin Miramontes DANNA Primary Care Provider Reason for Visit Reason Onset Date Comments Medication Refill 08/16/2014 Encounter Details Date Type Department Care Team Description 08/16/2014 Refill Psychiatry and Adalberto Krishnamurthy MD Insomnia, unspecified; Behavioral Health at [facility] B ipolar I disorder, most recent episode (or current) depressed, in partial or unspecified remission; [facility] Bipolar disorder [facility] PSYCHIATRY DE PT [place] [id number] [place] [address] [phone] Social History Tobacco Use Types Packs/Day Years Used Date Never Smoker Alcohol Use Standard Drinks/Week Comments No 0 (1 standard drink = 0.6 oz pure alcoho l) Sex Assigned at Date Recorded Female 02/11/2021 8:25 PM EDT documented as of this encounter Miscellaneous Notes Telephone Encounter - Adalberto Krishnamurthy MD - 08/17/2014 10:03 AM EDT From: Shireen Ricardo To: Adalberto Krishnamurthy MD Sent: 08/16/2014 1:26 PM EDT Subject: Medication Renewal Request Original authorizing provider: ADALBERTO KRISHNAMURTHY MD Shireen Silva would like a refill of the following medications: zolpidem (AMBIEN) 10 mg tablet [ADALBERTO KRISHNAMURTHY MD] lithium (LITHOBID) 300 mg CR tablet [ADALBERTO KRISHNAMURTHY MD] Preferred pharmacy: [id number] - [place], [place] - [address] [facility] Comment: documented in this encounter Plan of Treatment Upcoming Encounters Date Type Specialty Care Team Description 06/30/2022 TH Visit (TeleHealth) Psychiatry Ashtyn Joseph APRN [facility] PSYCHIATRY [place], [place] [address] (Wo rk) documented as of this encounter Visit Diagnoses Diagnosis Insomnia, unspecified Bipolar I disorder, most recent episode (or current) depressed, in partial or unspecified remission Bipolar disorder Bipolar disorder, unspecified documented in this encounter Care Teams Manufacturing Job Titles Relationship Specialty Start Date End Date Marlin Miramontes APRN PCP - General 06/14/13 01/25/17 documented as of this encounter
--- OUTSIDE RECORDS SUMMARY | 2022-05-26 22:02 | XMS_ITS | Encounter Summary ---
:1965 Author Organization [facility] [place] [address] Care Team Providers Name Role Phone Ayana Lai MD Primary Care Provider Reason for Visit Reason Onset Date Comments Medication Refill 07/08/2012 Encounter Details Date Type Department Care Team Description 07/08/2012 Refill Psychiatry and Behavioral David Farias MD [facility] at [facility] Yg baez PSYCHIATRY [place] [address] [place] [address] [phone] (Wo rk) Social History Tobacco Use Types Packs/Day Years Used Date Never Smoker Alcohol Use Standard Drinks/Week Comments No 0 (1 standard drink = 0.6 oz pure alcoho l) Sex Assigned at Date Recorded Female 02/11/2021 8:25 PM EDT documented as of this encounter Plan of Treatment Upcoming Encounters Date Type Specialty Care Team Description 06/30/2022 TH Visit (TeleHealth) Psychiatry Ashtyn Joseph APRN [facility] ER [address] [place], [place] [address] (Wo rk) documented as of this encounter Visit Diagnoses Not on filedocumented in this encounter Care Teams Sales Producer Relationship Specialty Start Date End Date Ayana Lai MD PCP - General 07/18/11 03/29/13 [address] [place] [address] documented as of this encounter
--- OUTSIDE RECORDS SUMMARY | 2022-05-26 22:02 | XMS_ITS | Encounter Summary ---
:1965 Author Organization [facility] Address [place] [id number] Care Team Providers Name Role Phone Marlin Miramontes DANNA Primary Care Provider Reason for Visit Reason Onset Date Comments Medication Refill 05/09/2015 Encounter Details Date Type Department Care Team Description 05/09/2015 Refill Psychiatry and Adalberto Krishnamurthy MD Bipolar I disorder, most Behavioral Health at [facility] r ecent episode (or [facility] donald) depressed, in [facility] PSYCHIATRY [place] [address] [place] [id number] [phone] Social History Tobacco Use Types Packs/Day Years Used Date Never Smoker Alcohol Use Standard Drinks/Week Comments No 0 (1 standard drink = 0.6 oz pure alcoho l) Sex Assigned at Date Recorded Female 02/11/2021 8:25 PM EDT documented as of this encounter Miscellaneous Notes Telephone Encounter - Adalberto Krishnamurthy MD - 05/09/2015 1:45 PM EDT From: Shireen Silva To: Adalberto Krishnamurthy MD Sent: 05/09/2015 10:05 AM EDT Subject: Medication Renewal Request Original authorizing provider: ADALBERTO KRISHNAMURTHY MD Shireen Badillodge would like a refill of the following medications: lithium (LITHOBID) 300 mg Tablet Sustained Release [ADALBERTO KRISHNAMURTHY MD] Preferred pharmacy: [facility] [place] - [address] [facility] Comment: documented in this encounter Plan of Treatment Upcoming Encounters Date Type Specialty Care Team Description 06/30/2022 TH Visit (TeleHealth) Psychiatry Ashtyn Joseph APRN [facility] PSYCHIATRY [place], [place] [address] (Wo rk) documented as of this encounter Visit Diagnoses Diagnosis Bipolar I disorder, most recent episode (or current) depressed, in partial or unspecified remission documented in this encounter Care Teams Office Employee Relationship Specialty Start Date End Date Marlin Miramontes APRN PCP - General 06/14/13 01/25/17 documented as of this encounter
--- OUTSIDE RECORDS SUMMARY | 2022-05-26 22:02 | XMS_ITS | Encounter Summary ---
:1965 Author Organization [place] [address] Care Team Providers Name Role Phone Ayana Lai MD Primary Care Provider Encounter Details Date Type Department Care Team Description 10/02/2011 Orders Only Psychiatry Wendy Farias MD [facility] [place] [address] PSYCHIATRY DEPT. [phone] [place], [place] [address] (Wo rk) Social History Tobacco [...] Joseph APRN [facility] ER [address] [place], [place] [address] (Wo rk) documented as of this encounter Visit Diagnoses Not on filedocumented in this encounter Care Teams Posting Clerk Relationship Specialty Start Date End Date Ayana Lai MD PCP - General 07/18/11 03/29/13 [address] [place], [place] [address] documented as of this encounter
--- OUTSIDE RECORDS SUMMARY | 2022-05-26 22:02 | XMS_ITS | Encounter Summary ---
:1965 Author Organization [facility] Address [place] [id number] Care Team Providers Name Role Phone Marlin Miramontes DANNA Primary Care Provider Reason for Visit Reason Onset Date Comments Medication Refill 12/30/2014 Encounter Details Date Type Department Care Team Description 12/30/2014 Refill Psychiatry and Adalberto Krishnamurthy MD Bipolar I disorder, most Behavioral Health at [facility] r ecent episode (or [facility] DR donald) depressed, in [facility] PSYCHIATRY DE PT [place] [address] [place] [phone] Social History Tobacco Use Types Packs/Day Years Used Date Never Smoker Alcohol Use Standard Drinks/Week Comments No 0 (1 standard drink = 0.6 oz pure alcoho l) Sex Assigned at Date Recorded Female 02/11/2021 8:25 PM EDT documented as of this encounter Miscellaneous Notes Telephone Encounter - Adalberto Krishnamurthy MD - 01/01/2015 4:20 PM EST From: Shireen Ricardo To: Adalberto Krishnamurthy MD Sent: 12/30/2014 10:29 AM EST Subject: Medication Renewal Request Original authorizing provider: ADALBERTO KRISHNAMURTHY MD Shireen Silva would like a refill of the following medications: lithium (LITHOBID) 300 mg Tablet Sustained Release [ADALBERTO KRISHNAMURTHY MD] Preferred pharmacy: [facility] - [facility] [place] - [address] [facility] Comment: documented in this encounter Plan of Treatment Upcoming Encounters Date Type Specialty Care Team Description 06/30/2022 TH Visit (TeleHealth) Psychiatry Ashtyn Joseph APRN [facility] PSYCHIATRY [place], [place] [address] (Wo rk) documented as of this encounter Visit Diagnoses Diagnosis Bipolar I disorder, most recent episode (or current) depressed, in partial or unspecified remission documented in this encounter Care Teams Shell Shop Supervisor Relationship Specialty Start Date End Date Marlin Miramontes APRN PCP - General 06/14/13 01/25/17 documented as of this encounter
--- OUTSIDE RECORDS SUMMARY | 2022-05-26 22:02 | XMS_ITS | Encounter Summary ---
:1965 Author Organization [facility] [place] [address] Care Team Providers Name Role Phone Ayana Lai MD Primary Care Provider Reason for Visit Reason Comments Depression Encounter Details Date Type Department Care Team Description 09/14/2012 Office Visit Psychiatry and Wendy Farias MD Bipolar disorder with Behavioral Health at [facility] c urrent episode [facility] depressed (Primary Dx) [facility] [place] [address] [place], [place] [phone] (Work) [phone] Social History Tobacco Use Types Packs/Day Years Used Date Never Smoker Alcohol Use Standard Drinks/Week Comments No 0 (1 standard drink = 0.6 oz pure alcoho l) Sex Assigned at Date Recorded Female 02/11/2021 8:25 PM EDT documented as of this encounter Progress Notes Don Wright MD - 09/15/2012 4:43 PM EDT [ ] I discussed this [...] corrections, &/or additional findings: Major issues addressed/discussed: No new med interventions. Rather, directed our efforts at facilitating her and hsb seeking couple's counseling and her indiv therapy as attention there may well be mood relieving. Additional comments Wendy Farias MD - 09/14/2012 9:16 PM EDT MED MANAGEMENT Med Management (CPT [id number] LUDA 2009) Location: Office Time Spent: 30 minutes Attendee(s): Patient This patient was seen with Dr. Wright See his note for confirmatory and/or revisionary documentation. SUBJECTIVE: ?? Noble present for interview today. ?? Patient expressed feeling depressed secondary to feeling unappreciated by her family, stating mood is -4 on a scale from -10 to 10. Denies neurovegetative symptoms of depression or SI/HI. had not been concerned about severe depressive symptoms and was concerned recently that patient was behaving more manic. Appreciates that patient has difficulty asking for help. ?? Spoke with therapist regarding increasing frequency of appointments but has not been able to see her therapist due to schedule conflicts. ?? No medication side effects. ?? Patient and reporting some marital issues that they feel would benefit from couples therapy. Did go to couples therapy in the past which found helpful. OBJECTIVE: Pertinent Mental Status Exam (relevant findings or changes): Speech: WNL. Mood: Depressed.. Affect: Appropriate.. Associations: Intact.. Judgement: Good.. Thought Process: Linear Logical. Abnormal/Psychotic Thoughts: No SI or HI. No AVH or delusions. Orientation: person, place, time and situation. Attention/Concentration: Alert. Current outpatient prescriptions ordered prior to encounter [...] by mouth every morning. 90 tablet 5 ASSESSMENT: Ms. Silva is a 47 year old female with BPaD I, most recent episode depressed who presents to clinic for follow-up. Last appointment on 08/17/12 at which time patient was recommended to increase the frequency of therapy appointments. Clinical presentation notable for depressed mood with no safety concerns that is unchanged from prior visits. Do continue to feel that patient would benefit more from therapeutic interventions rather than medication changes at this time. Patient encouraged to continueindividual therapy and to start couples therapy. PLAN: 1. Continue current medications. 2. Continue therapy. 3. Contact info for couples therapist provided. Patient to speak with her therapist regarding other recommendations. 4. RTC 3 months. Patient Instruction/Education provided: Patient provided written instructions regarding plan. Patient understands the plan? Yes documented in this encounter Plan of Treatment Upcoming Encounters Date Type Specialty Care Team Description 06/30/2022 TH Visit (TeleHealth) Psychiatry Ashtyn Joseph, DANNA [facility] PSYCHIATRY [place], [place] [address] (Wo rk) documented as of this encounter Visit Diagnoses Diagnosis Bipolar disorder with current episode de pressed - Primary Bipolar I disorder, most recent episode (or current) depressed, unspecified documented in this encounter Care Teams Workforce Planner Relationship Specialty Start Date End Date Ayana Lai MD PCP - General 07/18/11 03/29/13 [address] [place] [address] documented as of this encounter
--- OUTSIDE RECORDS SUMMARY | 2022-05-26 22:02 | XMS_ITS | Encounter Summary ---
:1965 Author Organization [facility] [address] Care Team Providers Name Role Phone Ayana Lai MD Primary Care Provider Reason for Visit Reason Onset Date Comments Medication Refill 06/24/2012 Encounter Details Date Type Department Care Team Description 06/24/2012 Refill Psychiatry and Behavioral David Farias MD [facility] [place] [address] [place] [address] [phone] (Wo rk) Social History Tobacco Use Types Packs/Day Years Used Date Never Smoker Alcohol Use Standard Drinks/Week Comments No 0 (1 standard drink = 0.6 oz pure alcoho l) Sex Assigned at Date Recorded Female 02/11/2021 8:25 PM EDT documented as of this encounter Plan of Treatment Upcoming Encounters Date Type Specialty Care Team Description 06/30/2022 TH Visit (TeleHealth) Psychiatry Ashtyn Joseph APRN [facility] [address] [place], [place] [address] (Wo rk) documented as of this encounter Visit Diagnoses Not on filedocumented in this encounter Care Teams Corporation Officer Relationship Specialty Start Date End Date Ayana Lai MD PCP - General 07/18/11 03/29/13 [address] [place] [address] documented as of this encounter
--- OUTSIDE RECORDS SUMMARY | 2022-05-26 22:02 | XMS_ITS | Encounter Summary ---
:1965 Author Organization [facility] [place] [address] Care Team Providers Name Role Phone Marlin Miramontes DANNA Primary Care Provider Reason for Visit Reason Onset Date Comments Medication Refill 12/12/2013 Encounter Details Date Type Department Care Team Description 12/12/2013 Refill Psychiatry and Flakita Sapp, Bipolar I disorder, most recent episode (or current) depressed, in partial or unspecified remission (Primary Dx); Behavioral Health at Insomnia, unspecified [facility] [address] [place] [address] [place], [place] [id number] [phone] (Wo rk) Social History Tobacco Use Types Packs/Day Years Used Date Never Smoker Alcohol Use Standard Drinks/Week Comments No 0 (1 standard drink = 0.6 oz pure alcoho l) Sex Assigned at Date Recorded Female 02/11/2021 8:25 PM EDT documented as of this encounter Miscellaneous Notes Telephone Encounter - Rupali Palomo MD - 12/13/2013 8:45 AM EST From: Shireen Ricardo To: Flakita Sapp MD Sent: 12/12/2013 10:38 PM EST Subject: Medication Renewal Request Original authorizing provider: FLAKITA SPAP MD Shireen Silva would like a refill of the following medications: zolpidem (AMBIEN) 10 mg tablet [FLAKITA SAPP MD] Preferred pharmacy: [id number] - [place], [place] - [address] [facility] Comment: documented in this encounter Plan of Treatment Upcoming Encounters Date Type Specialty Care Team Description 06/30/2022 TH Visit (TeleHealth) Psychiatry Ashtyn Joseph APRN [facility] [place], [place] [address] (Wo rk) documented as of this encounter Visit Diagnoses Diagnosis Bipolar I disorder, most recent episode (or current) depressed, in partial or unspecified remission - Primary Insomnia, unspecified documented in this encounter Care Teams Hazard Waste Handler Relationship Specialty Start Date End Date Marlin Miramontes APRN PCP - General 06/14/13 01/25/17 documented as of this encounter
--- OUTSIDE RECORDS SUMMARY | 2022-05-26 22:02 | XMS_ITS | Encounter Summary ---
:1965 Author Organization [facility] [place] [address] Care Team Providers Name Role Phone Miramontes, Marlin Chamorro APRN Primary Care Provider Reason for Visit Reason Comments Depression Encounter Details Date Type Department Care Team Description 03/28/2014 Office Visit Psychiatry and Rupali Palomo, Bipolar I disorder, most recent episode (or current) depressed, in partial or unspecified remission (Primary Dx); Behavioral Health at Bipolar disorder; [facility] Insomnia, unspecified [facility] [address] PSYCHIATRY DEPT [place] [phone] Social History Tobacco Use Types Packs/Day Years Used Date Never Smoker Alcohol Use Standard Drinks/Week Comments No 0 (1 standard drink = 0.6 oz pure alcoho l) Sex Assigned at Date Recorded Female 02/11/2021 8:25 PM EDT documented as of this encounter Last Filed Vital Signs Vital Sign Reading Time Taken Comments Blood Pressure 98/61 03/28/2014 2:30 PM EDT Pulse 68 03/28/2014 2:30 PM EDT Temperature - - Respiratory Rate 18 03/28/2014 2:30 PM EDT Oxygen Saturation - - Inhaled Oxygen Concentration - - Weight - - Height - - Body Mass Index - - documented in this encounter Progress Notes Rupali Palomo MD - 04/02/2014 9:03 PM EDT ESTABLISHED ADULT PATIENT OFFICE VISIT NOTE Time Spent: 30 minutes Attendee(s): Patient, this senior medical writer, MS3 Travis Edwards This patient was seen with Dr. Darryl Gonzales. See his note for confirmatory and/or revisionary documentation. HISTORY Chief Complaint: Shireen Silva is a 48 y.o. woman who presents today for follow-up of her mood disorder. HPI: () Since last seen by this senior medical writer, Shireen feels she has had bad depression for the past few months. Otherwise, things at home are unchanged, maybe a bit better than they were at our first visit. She is trying to do things to help improve her mood, including exercise and eating a healthy diet. Her sleep is good with Zolpidem most nights and her appetite is fine. She does not endorse SI, HI, or psychotic features. When questioned about past manic symptoms, Shireen notes that she has had minor manic thingsmainly having to do with spending money, which urges last for a few days and most recently occurred remotely. She is currently on Payneway and Bupropion, although she has cut back on her Bupropion dose (from 450 mg daily to 150 mg daily) recently when she started to run out of it. Her therapist encouraged her to speak with us about her Payneway, as she's been on it for 7 years and things have been fairly stable but not significantly better. She mentions that she has actually been taking half of her prescribed dose for one year so that she could take Ibuprofen. She has been looking into Latuda and is i nterested in trying this despite the cost, as her research showed that it has an indication for Bipolar depression and can work with Payneway. She expressed understanding of the side effects, particularly movement disorder, but was unaware of the potential metabolic effects. She notes that she likes anything that is weight neutral. She was disappointed to hear that although she could potentially geta julee to decrease the cost for a year, that it would not go longer than that, which would make Latuda inaccessible. She is willing to go back up to her former dose of Bupropion for now as her currentregimen seems to be keeping her nearly euthymic. Of note, she reports ongoing spending sprees even on her medications. Most recent labs: Component Latest Ref Rng 08/17/2013 Sodium 137 - 147 143 Potassium 3.4 - 5.3 4.3 Chloride 99 - 108 107 CO2 22 - 29 27 BUN 15 Creatinine 1 Estimated GFR 59.69 Glucose Lvl 79 Calcium 8.7 - 10.7 8.9 TSH 1.03 T4, total 6.2 T4 Free-Eso 0.96 T3, Total 68 Payneway Lvl 0.41 (L) Quality: In terms of depression, she is not visibly sad or slowed, and reports good sleep and appetite. Neurotic. Somewhat reticent. Severity: Based on PHQ9, moderately depressed which is reflected in her report of bad depression forthe past few months but not in affect. No SI or HI; no diana or psychosis. No cutting. Duration: Endorses worse depression in the past few months. Context: Unclear if symptoms were every truly manic or hypomanic. Regimen keeping her on mostly evenkeel. Situation at home unchanged, maybe a little better. Modifying factors: Medications are helping. Feels her therapy with Lottie Armando is going well. Zolpidem helps with sleep. Lamotrigine didn't help with moods in the past. Associated S&S: Sleep is good. Appetite is fine. Exercising and trying to eat healthy. Most recent PHQ9: PHQ9 03/22/2014 Little interest or pleasure Nearly every day Down, depressed, hopeless More than half the days Trouble sleeping Not at all Tired or no energy More than half the days Poor appetite or overeating Not at all Feeling like a failure Several days Trouble concentrating (newspaper) More than half the days Moving or speaking slowly Not at all Would be better off Not at all PHQ9 Scores 10 (Moderate Depression) Current Medications: Current Outpatient Prescriptions Medication Sig Dispense Refill ??? lithium (ESKALITH) 450 mg CR tablet Take 1 tablet by mouth 2 times daily. 60 tablet 5 ??? buPROPion (WELLBUTRIN XL) 300 mg 24 hr tablet Take 1 tablet by mouth every morning. 30 tablet 5 ??? lithium (ESKALITH) 450 mg CR tablet Take 450 mg by mouth 2 times daily. Indications: Depression associated with Manic Depressive Disorder ??? zolpidem (AMBIEN) 10 mg tablet Take [...] daily. ??? tiZANidine (ZANAFLEX) 4 mg tablet Take 4 [...] under the care of Harsh Carranza in [place], [place] (for the past 1 year). #Prior [...] but reported to have caused a rash), Payneway (Eskalith, current medication), Bupropion XL (current medication), Eszopiclone (ineffective for sleep), Oxazepam (ineffective for anxiety), Clonazepam,Zolpidem (current medication). Family Psychiatric and Medical History: Brother with alcohol use disorder, possible Bipolar disorder. Paternal grandmother with unknown psychiatric diagnosis but history of psychiatric hospitalization.Paternal uncle and cousins with unknown psychiatric diagnoses but multiple suicide attempts. Social History: Born in [facility]; has 1 older brother and 2 older sisters. Has a bachelor's degree in Psychology. Had first manic episode per report in college, lasting 2-3 months. 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 Currently lives in [place], [place] with her . Has three sons (aged 13, 20, and 22) all living at home; youngest has been recipient of psychiatric care at [facility] for years for behavioral disturbance. was deployed to [place] in 2008 andreturned safely. No domestic violence and everyone has been getting along well. Does not smoke cigarettes. Has never been a heavy drinker and only occasionally has a glass of wine.No history of illicits (no Heroin or Marijuana). EXAM [05/08/14 bullets (incl VS)] Constitutional System ? Vital Signs: Blood pressure 98/61, pulse 68, resp. rate 18. Musculoskeletal System ? Muscle Strength/Tone (note atrophy, abnormal movements): Normal bulk and tone. No abnormal movements or tremors. ? Gait and Station: Ambulates with steady, stable gait and normal station. Psychiatric System ? General Appearance/Behavior: Thin woman, appears younger than stated age. Curly red bobbed hair. Very small, sharp, slightly discolored teeth and very nervous grin. Well-groomed and nicely dressed. Some PMA noted, a little fidgety. Cooperative but guarded, seems to have trouble opening up. ? Speech: Normal rate, normal rhythm. Low [...] recent or remote recall. ? Language: Normal Macedonian. ? Fund of Knowledge: Seems appropriate for age and experience. Psychotherapeutic Interventions and Response: Active listening, with positive response. . MEDICAL DECISION MAKING ASSESSMENT: Shireen Silva is a 48 y.o. woman with a history of the diagnosis of Bipolar 1 disorder,most recent episode depressed and MALVIN. Her symptoms of depressed mood are reported to be bad despiteminimal changes at home and even some improvements in her life. Based on history and chart review, not entirely clear that Bipolar disorder is the correct diagnosis for her, but cannot exclude this possibility. She is not suicidal, no homicidal, not hypo/manic, and no psychotic. Seems mostly dysthymic, with maladaptive personality structure and difficulty accessing coping skills. Nevertheless, as medications seem to be helping with mood dysregulation, will continue for now with the following changes- will increase Bupropion back to 300 mg daily (between the 150 she has been taking and the 450 thatshe was prescribed) and will change Payneway dosing to reflect her actual use (instead of 900 mg BID,she takes 450 mg BID). She is amenable to this plan. Since we have not seen each other in 6 months (due to cancellations because of weather), she will need to get labs drawn before she returns to clinic on 05/23 at 3 PM. PLAN: Safety Risk Management: Risk factors include some relationship strain, impulsivity. Protective factors include family, therapeutic alliance with a health care provider, and future plans. Continue current medication(s) with the following changes: - Bupropion XL 300 mg qAM. - Payneway CR 450 mg BID. Labs ordered: Thyroid panel, BMP, Payneway level; patient given lab order sheet to have blood drawn at [facility], results to be faxed to this senior medical writer in April, prior to our next appointment. Patient Instruction/Education provided: Patient provided verbal instructions regarding plan of care. Patient understands the plan? Yes Darryl Gonzales MD - 03/28/2014 3:19 PM EDT PSYCHIATRY TEACHING PHYSICIAN INVOLVEMENT Location: [...] with them as documented. Major issues discussed: Patient managing her own dosages somewhat, Has reduced doses of both Wellbutrin' Wants to be on Latuda but discourages as insurance unlikely lto pay and const without inusrance is >$700. /month Agreed to go back up top 300 mg /day of Wellbutrin. Additional INformation documented in this encounter Plan of Treatment Upcoming Encounters Date Type Specialty Care Team Description 06/30/2022 TH Visit (TeleHealth) Psychiatry Ashtyn Joseph APRN [facility] PSYCH[facility] [place], [place] [address] (Wo rk) documented as of this encounter Visit Diagnoses Diagnosis Bipolar I disorder, most recent episode (or current) depressed, in partial or unspecified remission - Primary Bipolar disorder Bipolar disorder, unspecified Insomnia, unspecified documented in this encounter Care Teams Senior Climate Advisor Relationship Specialty Start Date End Date Marlin Miramontes APRN PCP - General 06/14/13 01/25/17 documented as of this encounter
--- OUTSIDE RECORDS SUMMARY | 2022-05-26 22:02 | XMS_ITS | Encounter Summary ---
:1965 Author Organization [facility] [place] [address] Care Team Providers Name Role Phone Marlin Miramontes APRN Primary Care Provider Encounter Details Date Type Department Care Team Description 06/15/2014 External Results Psychiatry and Rupali Palomo MD Behavioral Health at [facility] DE[facility] [place] [address] [place] [address] [phone] Social History Tobacco Use Types Packs/Day Years Used Date Never Smoker Alcohol Use Standard Drinks/Week Comments No 0 (1 standard drink = 0.6 oz pure alcoho l) Sex Assigned at Date Recorded Female 02/11/2021 8:25 PM EDT documented as of this encounter Plan of Treatment Upcoming Encounters Date Type Specialty Care Team Description 06/30/2022 TH Visit (TeleHealth) Psychiatry Ashtyn Joseph APRN [facility] [address] [place], [place] [address] (Wo rk) documented as of this encounter Procedures Procedure Name Priority Date/Time Associated Diagnosis Comme nts TSH Routine 06/12/2014 Results for thi s procedure are i n the results section . LITHIUM LEVEL Routine 06/12/2014 Results for th is procedure are i n the results section . BASIC METABOLIC PANEL Routine 06/12/2014 Result s for this (NON-FASTING) procedure are in the results section . documented in this encounter Results Basic Metabolic Panel (non-fasting) (06/12/2014) athologist Signature Calcium 9.3 8.7 - 10.7 Glucose Lvl 91 BUN 14 Creatinine 1 Sodium 140 137 - 147 Potassium 4.1 3.4 - 5.3 Chloride 105 99 - 108 CO2 28 22 - 29 Specimen (Source) Anatomical Location Collection Method / Collectio n Time Received Time / Laterality Volume Blood specimen 06/12/2014 (specimen) Rupali Palomo MD CHEMISTRY ORDERABLES TSH (06/12/2014) athologist Signature TSH 1.48 Comment: reference range 0.36-3.74 uIU/m L Specimen (Source) Anatomical Location Collection Method / Collectio n Time Received Time / Laterality Volume Blood specimen 06/12/2014 (specimen) Rupali Palomo MD CHEMISTRY ORDERABLES Quintana level (06/12/2014) athologist Signature Quintana Lvl 0.61 Comment: reference range 0.6-1.2 mmol/L Specimen (Source) Anatomical Location Collection Method / Collectio n Time Received Time / Laterality Volume Blood specimen 06/12/2014 (specimen) Rupali Palomo MD CHEMISTRY ORDERABLES documented in this encounter Visit Diagnoses Not on filedocumented in this encounter Care Teams Cartoon Designer Relationship Specialty Start Date End Date Marlin Miramontes APRN PCP - General 06/14/13 01/25/17 documented as of this encounter
--- OUTSIDE RECORDS SUMMARY | 2022-05-26 22:03 | XMS_ITS | Encounter Summary ---
:1965 Author Organization [facility] Address [address] [place] [address] Care Team Providers Name Role Phone Unavailable Primary Care Provider Unavailable Encounter Details Date Type Department Care Team Description 09/24/2000 Results Only [facility] Deonte Calvin MD conversion [address] [place] [address] Social History Tobacco Use Types Packs/Day Years Used Date Never Assessed Sex Assigned at Date Recorded Not on file documented as of this encounter Plan of Treatment Not on filedocumented as of this encounter Procedures Procedure Name Priority Date/Time Associated Diagnosis Comme nts SURGICAL PATHOLOGY Routine 09/24/2000 0:00 EDT Re sults for this procedure are i n the results section. documented in this encounter Results SURGICAL PATHOLOGY (09/24/2000 0:00 EDT) Pathology Report: SURGICAL PATHOLOGY REPORT ROSA RUELAS Reports generated via electronic interface contain ankit ginal data; LAB however they are lacking the format of the original re port. Caution should be taken when reading/interpreting unfo rmatted reports. Name: ? SHIREEN SILVA ? Accession #: ? [id number] ? : ? 1965 (Age: 35) ??F ? Collect Date: ? 09/24/2000 ? Location: ? [facility] ? Receive Date: ? Provider: DEONTE CHOPRA MD Copy to: SHERRY PEDERSEN MD ? Final Pathologic Diagnosis: ? Soft tissue, vaginal wall cyst, excision: - ??Benign Mcllerian cyst. Document reviewed and electronically signed by: MARTHA HAGAN MD Report ??Date: 09/28/2000 15:06 By the signature above, the attending physician certif ies that he/she has personally conducted a gross and/or microscopic examin ation of the described specimens and rendered or confirmed the above diagnosi s. Specimen(s) Received: ? Vaginal wall cyst Clinical History: ? Vaginal wall cyst Gross Description: ? Received in formalin labelled [place] and #1 vaginal wall cyst is an irregular to oval shaped fragment of soft tissue which weighs 2.46 grams and which measures 2.8 x 1.0 x 1.0 cm. ??The excisio n margins of the specimen are black inked. ??The specimen is then serially sectioned revealing a 1.0 to 1.2 cm cyst filled with a bose-white gelatinous material. ??The specimen is submitted entirely as (A1) through (A3). ??(Dr. Sanford[place] [place] of Report Specimen Performing Organization Address City/State/ZIP Code Phon e Number [facility] [address] [place] [address] SERVICES [facility] [address] [place] [address] documented in this encounter Visit Diagnoses Not on filedocumented in this encounter
--- OUTSIDE RECORDS SUMMARY | 2022-05-26 22:03 | XMS_ITS | Encounter Summary ---
:1965 Author Organization [facility] Address [address] [place] [address] Care Team Providers Name Role Phone Unavailable Primary Care Provider Unavailable Encounter Details Date Type Department Care Team Description 08/21/2000 Results Only [facility] - Ayana Cross CNM [address] [place] [id number] Social History Tobacco Use Types Packs/Day Years Used Date Never Assessed Sex Assigned at Date Recorded Not on file documented as of this encounter Plan of Treatment Not on filedocumented as of this encounter Procedures Procedure Name Priority Date/Time Associated Diagnosis Comme nts CYTOPATHOLOGY Routine 08/21/2000 0:00 EDT Results for this procedure are i n the results section . documented in this encounter Results CYTOPATHOLOGY (08/21/2000 0:00 EDT) Pathology Report: CYTOPATHOLOGY REPORT [facility] Reports generated via electronic interface contain ankit ginal data; however they are lacking the format of the original re port. Caution should be taken when reading/interpreting unfo rmatted reports. Name: ? SHIREEN SILVA ? Accession #: ? [id number] : ? 1965 (Age: 35) ??F ?Collect Date: ? 08/01 Location: ? [facility] ? Receive Date : ? 08/24/2000 Provider: ?AYANA RAMIREZ [facility] Copy to: ? Specimen/Source: ?ThinPrep Pap Test, Cervix/ Endocervix Last Menstrual Period: ? 09/30/99 ? Menstrual/ Status: ? Post ? SPECIMEN ADEQUACY ? Satisfactory for evaluation. GENERAL CATEGORIZATION ? Within Normal Limits ? Document reviewed and electronically signed by: ? BARON Valdes(ASCP) ? Report Date: ??08/26/2000 10:40 End of Report Specimen Performing Organization Address City/State/ZIP Code Phon e Number [facility] [address] [place] [address] SERVICES [facility] [address] [place] [address] documented in this encounter Visit Diagnoses Not on filedocumented in this encounter
--- OUTSIDE RECORDS SUMMARY | 2022-05-26 22:03 | XMS_ITS | Encounter Summary ---
:1965 Author Organization [facility] Address [address] [place] [address] Care Team Providers Name Role Phone Ayana Lai MD Primary Care Provider Encounter Details Date Type Department Care Team Description 10/09/2010 Results Only [facility] Jose Fang , Laboratory Services - [address] [place] [address] [place] [address] [phone] Social History Tobacco Use Types Packs/Day Years Used Date Never Assessed Sex Assigned at Date Recorded Not on file documented as of this encounter Plan of Treatment Not on filedocumented as of this encounter Procedures Procedure Name Priority Date/Time Associated Diagnosis Comme [facility] CYTOPATHOLOGY Routine 10/09/2010 0:00 EST Results for this procedure are i n the results section . documented in this encounter Results CYTOPATHOLOGY (10/09/2010 0:00 EST) Pathology Report: CYTOPATHOLOGY REPORT ? [facility] Reports generated via [employer] [facility] interface contain original data; ? however they are lacking the format of the original report. ? Caution should be taken when reading/interpreting unformatted reports. ? Name: ? SHIREEN ALVAREZ ? Accession #: ? [id number] ? : ? 1965 (Age: 45) ??F ?Collect Date: ? 10/09/2010 ? Location: ? [facility] ? Receive Date: ? 10/10/2010 ? Provider: ? JOSE FANG DO ? Copy to: ? CYTOLOGIC DIAGNOSIS: ? Thyroid, right, fine needle aspiration: ? - Consistent with benign thy roid nodule (colloid nodule). ??See comment. ? COMMENT: ? The specimen shows fo llicles and groups of follicular cells within a ? background of abundant collo id. ??The follicular cells show a bland nuclear ? chromatin pattern. ??There m ay be rare nuclear grooves, but no inclusions or ? other features of papillary thyroid carcinoma are identified. The cells are well preserved without evidence o f degeneration or necrosis. The cytologic features ?? are most consistent with a b enign colloid nodule. ??Clinical correlation is ? advised, with follow-up eval uation as clinically indicated. ??The case was ? reviewed in consultation by Dr. Aniket Lion, who concurs with the ? interpretation. (Dr. Lyons) /mpl ? Document reviewed and electr onically signed by: ? Soraya Lyons MD P hD ? Report Date: ??10/11/2010 13 :41 ? By the signature above, the attending physician certifies that he/she has ? personally conducted a gross and/or microscopic examination of the described ? specimens and rendered or co nfirmed the above diagnosis. ? Specimen Type: ? Thyroid, Fine Needle Aspirat ion, Right ? Clinical History: ? Cystic and solid comp onent thyroid nodule. ??Negative radiation exposure ? Gross Description: ? 3 fixed prepared slid es, 1 air dried prepared slide, and 1 tube of Cytolyt were received and processed by selective cellular enhancement technique. ? End of Report ? Specimen Performing Organization Address City/[facility] Phon e Number [facility] [address] [place] [address] SERVICES [facility] [address] [place] [address] documented in this encounter Visit Diagnoses Not on filedocumented in this encounter Care Teams Deputy Editor In Chief Relationship Specialty Start Date End Date Ayana Lai MD PCP - General 10/10/10 [address] [place], [place] [address] documented as of this encounter
--- OUTSIDE RECORDS SUMMARY | 2022-05-26 22:03 | XMS_ITS | Encounter Summary ---
:1965 Author Organization [facility] Address [address] [place] [address] Care Team Providers Name Role Phone Unavailable Primary Care Provider Unavailable Encounter Details Date Type Department Care Team Description 12/04/1999 Results Only [facility] - Carolann Guerrero CNM conversion [address] [facility] [address] [place], [place] [id number] [place] [address] [phone] Social History Tobacco Use Types Packs/Day Years Used Date Never Assessed Sex Assigned at Date Recorded Not on file documented as of this encounter Plan of Treatment Not on filedocumented as of this encounter Procedures Procedure Name Priority Date/Time Associated Diagnosis Comme nts CYTOPATHOLOGY Routine 12/04/1999 9:41 EST Results for this procedure are i n the results section . documented in this encounter Results CYTOPATHOLOGY (12/04/1999 9:41 EST) Pathology Report: CYTOPATHOLOGY REPORT [facility] Reports generated via electronic interface contain ankit ginal data; however they are lacking the format of the original re port. Caution should be taken when reading/interpreting unfo rmatted reports. Name: ? SHIREEN SILVA ? Accession #: ? [id number] : ? 1965 (Age: 34) ??F ?Collect Date: ? 03/2000 Location: ?Receive Date: ? 12/04/1999 Provider: ?ANEA LELONG CNM Copy to: ?ANEA LELONG CNM ? Specimen/Source: ?Patrol Judge ThinPrep Last Menstrual Period: ? GYNECOLOGIC ??CYTOPATHOLOG Y ??REPORT Name: SHIREEN SILVA ? [facility] : 1965 ?? 34Y F ?Cl ient ID: [id number] SS#: [id number] ? Ac cession #: [id number] Clinician: LELONG CNM, ANEA ?? Location: [facility] ??Copy to: ?? Specimen: ?Patrol Judge ThinPrep ? Source: Cervix/Endocervix ?Collected: 12/02/1999 ?? Received: 12/04/1999 ?LMP: 09/30/1999 ? Hormone Therapy: No ? : Yes ?Radiation Therapy: No ?? Post : No ?Chemotherapy: No ?IUD: No ? Prev Abnormal Pap: No ?? Clinical Hx: ?(Blank milligan indicate information not provided on requisition) SPECIMEN ADEQUACY: ? Satisfactory For Evaluation ?? GENERAL CATEGORIZATION: ? WITHIN NORMAL LIMITS ? Reviewed And Electronically Signed By: ? Harriett Jessica, CT(ASCP) ? Report Date : ?? 12/04/1999 [facility] Archived Tests - Final Diagnosis Text Field: Clinical History : ? Document reviewed and electronically signed by: ? Conversion ? Report Date: ??12/04/1999 00:00 End of Report Specimen Performing Organization Address City/State/ZIP Code Phon e Number [facility] [address] [place] [address] SERVICES [facility] [address] [place] [address] documented in this encounter Visit Diagnoses Not on filedocumented in this encounter
--- OUTSIDE RECORDS SUMMARY | 2022-05-26 22:03 | XMS_ITS | Clinical Summary ---
:1965 Author Organization [facility] Address [address] [place] [address] Care Team Providers Name Role Phone Ayana Lai MD Primary Care Provider Social History Tobacco Use Types Packs/Day Years Used Date Never Assessed Sex Assigned at Date Recorded Not on file Plan of Treatment Not on file Care Teams Hazmat Tanker Driver Relationship Specialty Start Date End Date Ayana Lai MD PCP - General 10/10/10 [address] [place], [place] [address]
--- OUTSIDE RECORDS SUMMARY | 2022-05-26 22:03 | XMS_ITS | Encounter Summary ---
:1965 Author Organization [facility] Address [address] [place] [address] Care Team Providers Name Role Phone Ayana Lai MD Primary Care Provider Encounter Details Date Type Department Care Team Description 12/15/2012 Results Only [facility] Aniya Dong, SENIOR MEDICAL BILLING SPECIALIST Laboratory Services - [address] [place] [address] [address] [place] [address] [place] [address] [phone] Social History Tobacco Use Types Packs/Day Years Used Date Never Assessed Sex Assigned at Date Recorded Not on file documented as of this encounter Plan of Treatment Not on filedocumented as of this encounter Procedures Procedure Name Priority Date/Time Associated Diagnosis Comme nts PAP TEST- RESULT Routine 12/15/2012 0:00 EST Resu lts for this ONLY procedure are i n the results section. documented in this encounter Results PAP TEST- RESULT ONLY (12/15/2012 0:00 EST) Pathology Report: CYTOPATHOLOGY REPORT [facility] Reports generated via electronic interface contain ankit ginal data; however they are lacking the format of the original re port. Caution should be taken when reading/interpreting unfo rmatted reports. Name: ? SHIREEN SILVA ? Accession #: ? [id number] ? : ? 1965 (Age: 47) ??F ?Collect Da te: ? 12/15/2012 ? Location: ? [facility] ? Receive Date: ? 013 ? Provider: BART DONG SENIOR MEDICAL BILLING SPECIALIST Copy to: ? Final Report SPECIMEN ADEQUACY ? Satisfactory for Evaluation - transformation zone component present GENERAL CATEGORIZATION ? Negative for Intraepithelial Lesion or Malignan cy INTERPRETATION ? Reactive cellular laci nges associated with inflammation present (includes repair). Last Menstrual Period: 11/26/12 Specimen/Source: ??Pap Test, Cervix/Endocervix, ThinPr ep Imaging System with manual evaluation Document reviewed and electronically signed by: ? ANDERSON ELIAS MD ? Report ??Date: 12/23/2012 17:28 HPV with Pap Test ? Date Ordered: ? 12/23/2012 ? Status: ?? Signed Out ?Date Complete: ? 12/30/2012 ? By: ??S ystem Interface ? Date Reported: ? 12/30/2012 ? Interpretation RESULT: Negative for HPV. No E6 or E7 mRNA is detected from HPV types 16,18,31,3 3,35, 39,45,51,52,56,58,59,66, and 68 by art department head media zohaib amplification. Comments Document reviewed and electronically signed by: ? System Interface ? Report date: 12/30/2012 By the signature above, the attending physician certif ies that he/she has personally conducted a gross and/or microscopic examin ation of the described specimens and rendered or confirmed the above diagnosi s. End of Report Specimen Performing Organization Address City/State/ZIP Code Phon e Number [facility] [address] [place] [address] SERVICES [facility] [address] [place] [id number] documented in this encounter Visit Diagnoses Not on filedocumented in this encounter Care Teams Portal Developer Relationship Specialty Start Date End Date Ayana Lai MD PCP - General 10/10/10 [address] [place], [place] [address] documented as of this encounter
--- OUTSIDE RECORDS SUMMARY | 2022-05-26 22:03 | XMS_ITS | Encounter Summary ---
:1965 Author Organization [facility] Address [address] [place] [address] Care Team Providers Name Role Phone Ayana Lai MD Primary Care Provider Encounter Details Date Type Department Care Team Description 01/25/2018 Results Only [facility]- Mandeep Vallejo, [facility] [phone] [address] [facility] [place] [address] (Wo rk) Social History Tobacco Use Types Packs/Day Years Used Date Never Assessed Sex Assigned at Date Recorded Not on file documented as of this encounter Plan of Treatment Not on filedocumented as of this encounter Procedures Procedure Name Priority Date/Time Associated Diagnosis Comme nts PAP TEST- RESULT Routine 01/25/2018 0:00 EST Resu lts for this ONLY procedure are i n the results section. documented in this encounter Results PAP TEST- RESULT ONLY (01/25/2018 0:00 EST) Pathology Report: CYTOPATHOLOGY REPORT [facility] Reports generated via electronic interface contain ankit ginal data; SERVICES however they are lacking the format of the original re port. Caution should be taken when reading/interpreting unfo rmatted reports. Name: ? SHIREEN SILVA ? Accession #: ? [id number] ? : ? 1965 (Age: 7 0) ??F ?Collect Date: ? 01/25/2018 ? Location: ? [facility] ? Receive Date: ? 01/26/20 18 ? Provider: MANDEEP CEBALLOS CLOTH MENDER Copy to: ? Final Report SPECIMEN ADEQUACY ? Satisfactory for Evaluation - transformation zone component present GENERAL CATEGORIZATION ? Negative for Intraepithelial Lesion or Malignan cy ?? Specimen/Source: ??Pap Test, Cervix, ThinPrep Imaging System with manual evaluation Document reviewed and electronically signed by: ? Gaby Zarco, CT(ASCP) ? Report ??Date: 02/04/2018 13:40 HPV with Pap Test ? Date Ordered: ? 02/04/2018 ? Status: ?? S igned Out ?Date Complete: ? 02/05/2018 ? By: ??Sys tem Interface ? Date Reported: ? 02/05/2018 ? Interpretation RESULT: Negative for HPV. No E6 or E7 mRNA is detected from HPV types 16,18,31,3 3,35, 39,45,51,52,56,58,59,66, and 68 by lead pressman roto gravure printing media zohaib amplification. Comments Document reviewed and electronically signed by: ? System Interface ? Report date: 02/05/2018 By the signature above, the attending physician certif ies that he/she has personally conducted a gross and/or microscopic examin ation of the described specimens and rendered or confirmed the above diagnosi s. End of Report Specimen Performing Organization Address City/State/ZIP Code Phon e Number [facility] [address] [place] [address] SERVICES documented in this encounter Visit Diagnoses Not on filedocumented in this encounter Care Teams Welcome Hostess Relationship Specialty Start Date End Date Ayana Lai MD PCP - General 10/10/10 [address] [place] [address] documented as of this encounter
--- NOTE | 2022-05-26 22:22 | ED.GENADUL_ITS ---
Discharge Plan Disposition Patient Disposition: HOME Condition: Stable Discharge Details Clinical Impression: Herpes zoster Primary Care Provider: Virginie Gudino ED Provider: Harvey Gallegos Home Meds and New Rx's Prescriptions: New valacyclovir 1 gram tablet 1,000 mg PO TID 7 Days Qty: 21 0RF No Action lidocaine 5 % adhesive patch,medicated 1 patch topical DAILY Qty: 15 0RF Rx Instructions: leave on most painful area for up to 12 hrs acetaminophen [Acetaminophen Extra Strength] 500 mg Tablet 500 - 1,000 mg PO Q6H PRN lithium carbonate 300 mg Capsule 900 mg PO HS gabapentin 600 mg tablet 600 tab PO HS Label Comments: TAKE ONE TABLET BY MOUTH EVERY DAY lithium carbonate 300 mg tablet extended release 600 mg PO QAM Label Comments: TAKE 2 TABLETS BY MOUTH EVERY MORNING AND TAKE 3 TABLETS EVERY EVENING lorazepam 0.5 mg tablet 0.5 mg PO Q6H PRN Label Comments: TAKE ONE TABLET BY MOUTH EVERY 6 HOURS NEEDED FOR ANXIETY zolpidem 5 mg tablet 5 mg PO HS PRN (Reason: can take half to one tablet) Label Comments: TAKE 1/2 TO 1 TABLET ORALLY NIGHTLY NEEDED FOR SLEEP fluoxetine 20 mg capsule 40 mg PO DAILY Label Comments: TAKE 1 CAPSULE BY MOUTH ONCE DAILY Discharge Instructions Instructions: Shingles (ED) Additional Instructions: Please take antiviral therapy as prescribed. Please return if you develop worsening redness pain pus drainage fevers or involvement of your eyes mouth ears or face. Medical Decision Making 57-year-old female presents with 1 day of vesicular rash in a left thoracic dermatomal distribution, consistent with herpes zoster. No evidence of mucosal involvement such as eyes or mouth. Hemodynamically stable nontoxic. Will initiate antiviral therapy. Home care instructions and strict return precautions given. Counseled to avoid women and babies. Will be given first dose here and prescription will be sent to her pharmacy. HPI General Date/Time Provider Initiated Documentation: 05/26/22 22:03 . HPI Narrative: 57-year-old female presents with 1 day of burning rash to left flank and abdomen slightly itchy in nature. No fevers or chills. Related Data Home Medications Medication Instructions Recorded Confirmed fluoxetine 20 mg capsule 40 mg PO DAILY 11/29/20 05/26/22 lithium carbonate 300 mg 600 mg PO QAM 11/29/20 05/26/22 tablet,extended release lorazepam 0.5 mg tablet 0.5 mg PO Q6H PRN 11/29/20 05/26/22 zolpidem 5 mg tablet 5 mg PO HS PRN can take half to 11/29/20 05/26/22 one tablet lidocaine 5 % topical patch 1 patch topical DAILY #15 ea 04/17/21 04/17/21 acetaminophen 500 mg tablet 500 - 1,000 mg PO Q6H PRN 05/26/22 05/26/22 (Acetaminophen Extra Strength) gabapentin 600 mg tablet 600 tab PO HS 05/26/22 05/26/22 lithium carbonate 300 mg capsule 900 mg PO HS 05/26/22 05/26/22 valacyclovir 1 gram tablet 1,000 mg PO TID 7 days #21 tabs 05/26/22 Previous Rx's Medication Instructions Recorded lidocaine 5 % topical patch 1 patch topical DAILY #15 ea 04/17/21 valacyclovir 1 gram tablet 1,000 mg PO TID 7 days #21 tabs 05/26/22 Allergies Allergy/AdvReac Type Severity Reaction Status Date / Time NSAIDS (Non-Steroidal AdvReac Intermediate Other (See Verified 04/17/21 09:22 Anti-Inflamma Comment) General Stated Complaint: RashLesion EDIN: 3 Review of Systems Narrative: Review of Systems Constitutional: negative Eyes: negative ENT: negative Cardiovascular: negative Respiratory: negative Gastrointestinal: negative : negative Musculoskeletal: negative Skin: Rash Neurologic: negative Psych: negative PFSH All Active Problems (Updated 05/26/22 @ 22:26 by Harvey Gallegos MD) Herpes zoster (Acute) Rib pain on right side (Acute) Social History Smoking/Tobacco Use Status: Former Tobacco Use Smoking risk assessment performed?: Yes Alcohol Intake: current Alcohol Intake frequency: 0-2 drinks per day Alcohol type: wine Substance use type: does not use Do you feel safe at home: Yes Do you feel safe in your relationship?: Yes Exam Narrative Exam Narrative: Physical Examination General: alert, awake, cooperative, resting comfortably, no acute distress HEENT: normocephalic, atraumatic; PERRL, EOM intact, conjunctiva normal; no nasal discharge; moist mucous membranes, oral and pharyngeal mucosa normal, tolerating secretions Neck: supple, trachea midline; full ROM Chest: normal to inspection Respiratory: normal respiratory effort, speaking in full sentences, clear to auscultation, no wheezing, rales or rhonchi Cardiac: regular rate, regular rhythm, S1S2 intact, no murmurs rubs or gallops GI: abdomen soft, non-tender, non-distended; no palpable mass or hepatosplenomegaly Skin: Vesicular rash in left thoracic dermatomal distribution no evidence of superinfection Neuro: AAOx3, normal speech, moving all extremities Psych: Appropriate mood and affect Course Vital Signs Vital signs: Vital Signs Temperature 36.8 C 05/26/22 21:58 Pulse 65 05/26/22 21:58 Respiratory Rate 18 05/26/22 21:58 Blood Pressure 156/81 H 05/26/22 21:58 Pulse Oximetry 98 05/26/22 21:58 Temperature 36.8 C 05/26/22 21:58 Temperature Source Tympanic 05/26/22 21:58 Pulse 65 05/26/22 21:58 Respiratory Rate 18 05/26/22 21:58 Respiratory Effort 05/26/22 22:10 Blood Pressure 156/81 H 05/26/22 21:58 Blood Pressure Position Sitting 05/26/22 21:58 Pulse Oximetry 98 05/26/22 21:58 Oxygen Delivery Method Room Air 05/26/22 21:58 Oxygen Flow Rate 0 05/26/22 21:58 PAWSS Have you Been Recently Intoxicated or Drunk Within the Last 30 days?: No Have you Ever Experienced Previous Episodes of Alcohol Withdrawal?: No Have you ever Experienced Withdrawal Seizures?: No Have you ever Experienced Delirium Tremens(DT)s?: No Have you ever undergone Alcohol Rehabilitation Treatment (i.e, inpt ot outpatient treatment programs)?: No Have you ever Experienced Blackouts?: No Have you ever Combined Alcohol with other Downers within the last 90 days?: No Have you ever Combined Alcohol with any other Substance of Abuse during the last 90 days?: No Positive Blood Alcohol level on Presentation? [PCS.BAL]: No Evidence of Increased Autonomic Activity (i.e. HR>120, tremor, sweating, agitation, nausea)?: No Result: 0
[2022-05-26] MEDS: valACYclovir 1,000 MG TAB 1000 MG PO (22:41)
== END 2022-05-26 22:42 | disposition home or self-care (01) ==
PROVIDERS: Emergency Provider Emergency Medicine; PCP Nurse Practitioner Family
DX: B00.9 Herpesviral infection, unspecified (principal)
CPT/HCPCS: 99283

== ENCOUNTER 2022-06-11 18:12 | Emergency (ER) | payer MEDICARE, BC, SELFPAY ==
[2022-06-11 18:13] VITALS: BP 148/95; PULSE 78; RESP 16; TEMP 37.2; O2SAT 95
--- NOTE | 2022-06-11 18:23 | NUR.NOTE ---
Nursing Note: Patients pulled radio script writer aside and stated that the patient is grossly intoxicated, and is this way every night. He stated that the main reason she is here is because she had a panic attack and demanded that she come to the ER for her broken tooth. She was hysterical prior to arrival.
--- NOTE | 2022-06-11 18:34 | ED.GENADUL_ITS ---
Discharge Plan Disposition Patient Disposition: HOME Condition: Stable Discharge Details Clinical Impression: Pain in tooth Primary Care Provider: Virginie Gudino ED Provider: Manan Fowler Home Meds and New Rx's Prescriptions: New amoxicillin-pot clavulanate 875-125 mg tablet 1 tab PO BID Qty: 14 0RF Continued lidocaine 5 % adhesive patch,medicated 1 patch topical DAILY Qty: 15 0RF Rx Instructions: leave on most painful area for up to 12 hrs acetaminophen [Acetaminophen Extra Strength] 500 mg Tablet 500 - 1,000 mg PO Q6H PRN lithium carbonate 300 mg Capsule 900 mg PO HS gabapentin 600 mg tablet 600 tab PO HS Label Comments: TAKE ONE TABLET BY MOUTH EVERY DAY lithium carbonate 300 mg tablet extended release 600 mg PO QAM Label Comments: TAKE 2 TABLETS BY MOUTH EVERY MORNING AND TAKE 3 TABLETS EVERY EVENING lorazepam 0.5 mg tablet 0.5 mg PO Q6H PRN Label Comments: TAKE ONE TABLET BY MOUTH EVERY 6 HOURS NEEDED FOR ANXIETY zolpidem 5 mg tablet 5 mg PO HS PRN (Reason: can take half to one tablet) Label Comments: TAKE 1/2 TO 1 TABLET ORALLY NIGHTLY NEEDED FOR SLEEP fluoxetine 20 mg capsule 40 mg PO DAILY Label Comments: TAKE 1 CAPSULE BY MOUTH ONCE DAILY Discharge Instructions Instructions: Toothache (ED) Additional Instructions: follow up with your dentist as soon as possible if you feel more ill, have severe worsening pain or difficulty swallowing return to the emergency department Medical Decision Making 57 yo female comes in with left upper posterior molar pain starting an hour ago and she states she think she broke her tooth chewing on pork. She was recently seen for shingles and her rash on her left torso is almost fully healed and can barely be visualizes now. She has pain in the left upper posterior molar, has numberous fillings and the posterior portion of the tooth is broken, no pulp or dentin seen. No submandibular swelling, no abscess. Suspect tooth fracture bernstein class I and will place on prophylactic augmentin until she can see her dentist, return precautions given Differential Diagnosis Differential Diagnosis: broken tooth, pulpitis HPI General Mode of arrival: ambulatory . Date/Time Provider Initiated Documentation: 06/11/22 18:12 . Limitations to Documentation: no limitations . Information obtained by: patient . History of Present Illness 57 year old F presents to the emergency department with the chief complaint of tooth pain, described as moderate, Quality is described as aching, Patient started experiencing this hour(s) (1) and it has been constant. No relieving factors improve symptom(s), No exacerbating factors reported . Patient notes no other symptoms.. Patient did receive the following treatments prior to arrival, none Related Data Home Medications Medication Instructions Recorded Confirmed fluoxetine 20 mg capsule 40 mg PO DAILY 11/29/20 06/11/22 lithium carbonate 300 mg 600 mg PO QAM 11/29/20 06/11/22 tablet,extended release lorazepam 0.5 mg tablet 0.5 mg PO Q6H PRN 11/29/20 06/11/22 zolpidem 5 mg tablet 5 mg PO HS PRN can take half to 11/29/20 06/11/22 one tablet lidocaine 5 % topical patch 1 patch topical DAILY #15 ea 04/17/21 06/11/22 acetaminophen 500 mg tablet 500 - 1,000 mg PO Q6H PRN 05/26/22 06/11/22 (Acetaminophen Extra Strength) gabapentin 600 mg tablet 600 tab PO HS 05/26/22 06/11/22 lithium carbonate 300 mg capsule 900 mg PO HS 05/26/22 06/11/22 amoxicillin 875 mg-potassium 1 tab PO BID #14 tabs 06/11/22 clavulanate 125 mg tablet Previous Rx's Medication Instructions Recorded lidocaine 5 % topical patch 1 patch topical DAILY #15 ea 04/17/21 amoxicillin 875 mg-potassium 1 tab PO BID #14 tabs 06/11/22 clavulanate 125 mg tablet Allergies Allergy/AdvReac Type Severity Reaction Status Date / Time NSAIDS (Non-Steroidal AdvReac Intermediate Other (See Verified 06/11/22 18:17 Anti-Inflamma Comment) General Stated Complaint: DentalOral EDIN: 4 Review of Systems All systems reviewed & are unremarkable except as noted in HPI and below Constitutional Constitutional: Denies chills, Denies fever(s) and Denies weakness ENT Ears, Nose, Mouth, and Throat: Denies change in voice Cardiovascular Cardiovascular: Denies chest pain and Denies dyspnea Respiratory Respiratory: Denies dyspnea Gastrointestinal Gastrointestinal: Denies abdominal pain, Denies nausea and Denies vomiting Neurologic Neurologic: Denies weakness Psychiatric Psychiatric: Denies depression PFSH All Active Problems (Updated 06/11/22 @ 18:38 by Manan Fowler MD) Herpes zoster (Acute) Pain in tooth (Acute) Rib pain on right side (Acute) Social History Smoking/Tobacco Use Status: Former Tobacco Use Smoking risk assessment performed?: Yes Alcohol Intake: current Alcohol Intake frequency: 0-2 drinks per day Alcohol type: wine Substance use type: does not use Do you feel safe at home: Yes Do you feel safe in your relationship?: Yes Exam Const General: no acute distress Orientation: alert HENMT Head: normal to inspection Ears: external ears normal General nose exam: external nose normal Mouth: moist mucous membranes Eyes General: appearance normal, both eyes and all related structures Neck Neck: normal visual inspection Resp Effort & Inspection: normal respiratory effort and able to speak in complete sentences Cardio Rate: regular rate Skin General skin exam: no rashes or lesions noted Neuro General: patient alert and patient oriented x3 Extrem General: normal to inspection Psych Mental Status: mental status grossly normal Course Vital Signs Vital signs: Vital Signs Temperature 37.2 C 06/11/22 18:13 Pulse 78 06/11/22 18:13 Respiratory Rate 16 06/11/22 18:13 Blood Pressure 148/95 H 06/11/22 18:13 Pulse Oximetry 95 06/11/22 18:13 Temperature 37.2 C 06/11/22 18:13 Temperature Source Temporal Artery Scan 06/11/22 18:13 Pulse 78 06/11/22 18:13 Respiratory Rate 16 06/11/22 18:13 Respiratory Effort 06/11/22 18:17 Blood Pressure 148/95 H 06/11/22 18:13 Blood Pressure Position Sitting 06/11/22 18:13 Pulse Oximetry 95 06/11/22 18:13 Oxygen Delivery Method Room Air 06/11/22 18:13 Oxygen Flow Rate 0 06/11/22 18:13 Pain Level 0 06/11/22 18:17
[2022-06-11] MEDS: Benzocaine 20% Gel 30 GM JAR MM (18:39)
[2022-06-11] MEDS: Amoxicillin 875/Clav. 125 TAB PO (18:39)
== END 2022-06-11 18:42 | disposition home or self-care (01) ==
PROVIDERS: Emergency Provider Emergency Medicine; PCP Nurse Practitioner Family
DX: K08.89 Other specified disorders of teeth and supporting structures (principal); Z87.891 Personal history of nicotine dependence
CPT/HCPCS: 99283; 99284

== ENCOUNTER 2022-11-06 17:55 | Emergency (ER) | payer MEDICARE, BC, SELFPAY ==
[2022-11-06 18:07] VITALS: BP 137/81; PULSE 65; RESP 20; TEMP 36.7; O2SAT 97
--- NOTE | 2022-11-06 21:30 | ED.GENADUL_ITS ---
Discharge Plan Disposition Patient Disposition: Home Condition: Improving Discharge Details Clinical Impression: Laceration of forearm, left, Intentional self-harm by knife, initial encounter Primary Care Provider: Virginie Gudino ED Provider: Zurdo Gregory Home Meds and New Rx's Prescriptions: No Action lidocaine 5 % adhesive patch,medicated 1 patch topical DAILY Qty: 15 0RF Rx Instructions: leave on most painful area for up to 12 hrs acetaminophen [Acetaminophen Extra Strength] 500 mg Tablet 500 - 1,000 mg PO Q6H PRN lithium carbonate 300 mg Capsule 900 mg PO HS gabapentin 600 mg tablet 600 tab PO HS Label Comments: TAKE ONE TABLET BY MOUTH EVERY DAY amoxicillin-pot clavulanate 875-125 mg tablet 1 tab PO BID Qty: 14 0RF lithium carbonate 300 mg tablet extended release 600 mg PO QAM Label Comments: TAKE 2 TABLETS BY MOUTH EVERY MORNING AND TAKE 3 TABLETS EVERY EVENING lorazepam 0.5 mg tablet 0.5 mg PO Q6H PRN Label Comments: TAKE ONE TABLET BY MOUTH EVERY 6 HOURS NEEDED FOR ANXIETY zolpidem 5 mg tablet 5 mg PO HS PRN (Reason: can take half to one tablet) Label Comments: TAKE 1/2 TO 1 TABLET ORALLY NIGHTLY NEEDED FOR SLEEP fluoxetine 20 mg capsule 40 mg PO DAILY Label Comments: TAKE 1 CAPSULE BY MOUTH ONCE DAILY Discharge Instructions Instructions: Laceration (ED) Additional Instructions: Watch for any signs of infection and return immediately to the emergency department if these occur. Otherwise keep dressing in place for the next 24-48 hours and then keep wound clean and dry. Return to the emergency department 10 days for suture removal. Referrals: Virginie Gudino [Primary Care Provider] - (As needed for reassessment or other emotional distress or depression.) Discharge Data Discharge Date/Time-TO BE ENTERED AT DEPARTURE: 11/06/22 22:05 Medical Decision Making Patient presenting to the emergency department for chief complaint of self- inflicted wound to her left forearm. 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 She states that her depression has been doing well but this evening she became overwhelmed and cut herself. She stated she was only intending for superficial laceration and actually went slightly deeper. Patient denies any other injury or trauma, denies suicidal ideations, states she is in a safe living environment and feels that she is actually doing okay. Patient reports that she is up-to-date on her tetanus. Patient has 5 cm laceration to left forearm otherwise exam is unremarkable patient has full function and sensation distal to injury. Please see procedure note for wound repair. After discussion of plan of care patient stated no further questions or concerns. Patient states clear understanding to return to the emergency department for new or worsening symptoms. Sign Out No HPI General Mode of arrival: ambulatory . Date/Time Provider Initiated Documentation: 11/06/22 18:24 . Limitations to Documentation: no limitations . Information obtained by: patient and RN notes reviewed . History of Present Illness 57 year old F presents to the emergency department with the chief complaint of Forearm laceration, described as moderate, with intensity rated at 5. Quality is described as sharp, and is localized to the left and upper extremity. Patient reports no radiation. Patient started experiencing this hour(s) (1) and it has been constant. No relieving factors improve symptom(s), Patient notes no other symptoms.. Patient did receive the following treatments prior to arrival, none Related Data Home Medications Medication Instructions Recorded Confirmed fluoxetine 20 mg capsule 40 mg PO DAILY 11/29/20 06/11/22 lithium carbonate 300 mg 600 mg PO QAM 11/29/20 06/11/22 tablet,extended release lorazepam 0.5 mg tablet 0.5 mg PO Q6H PRN 11/29/20 06/11/22 zolpidem 5 mg tablet 5 mg PO HS PRN can take half to 11/29/20 06/11/22 one tablet lidocaine 5 % topical patch 1 patch topical DAILY #15 ea 04/17/21 06/11/22 acetaminophen 500 mg tablet 500 - 1,000 mg PO Q6H PRN 05/26/22 06/11/22 (Acetaminophen Extra Strength) gabapentin 600 mg tablet 600 tab PO HS 05/26/22 06/11/22 lithium carbonate 300 mg capsule 900 mg PO HS 05/26/22 06/11/22 amoxicillin 875 mg-potassium 1 tab PO BID #14 tabs 06/11/22 clavulanate 125 mg tablet Previous Rx's Medication Instructions Recorded lidocaine 5 % topical patch 1 patch topical DAILY #15 ea 04/17/21 amoxicillin 875 mg-potassium 1 tab PO BID #14 tabs 06/11/22 clavulanate 125 mg tablet Allergies Allergy/AdvReac Type Severity Reaction Status Date / Time NSAIDS (Non-Steroidal AdvReac Intermediate Other (See Verified 06/11/22 18:17 Anti-Inflamma Comment) General Stated Complaint: Trauma EDIN: 4 Review of Systems Narrative: 6 systems reviewed and are unremarkable except as noted in HPI and below Integumentary/Breasts Skin/Breast: Reports as per HPI Psychiatric Psychiatric: Denies homicidal ideation and Denies suicidal ideation PFSH All Active Problems (Updated 11/06/22 @ 21:34 by Zurdo Gregory NP) Laceration of forearm, left (Acute) Intentional self-harm by knife, initial encounter (Acute) Rib pain on right side (Acute) Social History Smoking/Tobacco Use Status: Former Tobacco Use Smoking risk assessment performed?: Yes Alcohol Intake: current Alcohol Intake frequency: 0-2 drinks per day Alcohol type: wine Substance use type: does not use Do you feel safe at home: Yes Do you feel safe in your relationship?: Yes Exam Const General: cooperative and no acute distress Orientation: alert, awake and oriented x3 Limitations: mental status not altered Resp Effort & Inspection: normal respiratory effort and able to speak in complete sentences Cardio Rate: regular rate Rhythm: regular rhythm Neuro General: patient alert, patient awake, patient oriented x3, gait normal, tone normal, moves all extremities, normal light touch, pain and propioception and no focal motor deficits Motor: no movement abnormalities noted Sensory Exam: no sensory deficits noted Extrem Left upper extremity: elbow/forearm Details: laceration (5cm) Course Vital Signs Vital signs: Vital Signs Temperature 36.7 C 11/06/22 18:07 Pulse 65 11/06/22 18:07 Respiratory Rate 20 11/06/22 18:07 Blood Pressure 137/81 11/06/22 18:07 Pulse Oximetry 97 11/06/22 18:07 Temperature 36.7 C 11/06/22 18:07 Pulse 65 11/06/22 18:07 Respiratory Rate 20 11/06/22 18:07 Blood Pressure 137/81 11/06/22 18:07 Blood Pressure Position Sitting 11/06/22 18:07 Pulse Oximetry 97 11/06/22 18:07 Oxygen Delivery Method Room Air 11/06/22 18:07 Oxygen Flow Rate 0 11/06/22 18:07 Pain Level 0 11/06/22 18:07 Procedures Laceration Laceration 1: Site: upper extremity Side (If applicable): left Size (cm): 5 Description: linear and clean Depth: simple, single layer Local Anesthetic: Lidocaine 1% and with Epi Amount of anesthesia used (mL): 6 Pre-repair: wound explored, irrigated extensively and deep structures intact Skin layer closed with: other (prolene) Size (cm): 4-0 Number of sutures: 4 Technique: simple, interrupted
[2022-11-06 21:45] VITALS: BP 167/89; PULSE 63; RESP 18; TEMP 37.2; O2SAT 98
== END 2022-11-06 22:05 | disposition home or self-care (01) ==
PROVIDERS: Emergency Provider Nurse Practitioner Family; PCP Nurse Practitioner Family
DX: S51.812A Laceration without foreign body of left forearm, initial encounter (principal); X78.1XXA Intentional self-harm by knife, initial encounter; F32.A Depression, unspecified
CPT/HCPCS: 12002

== ENCOUNTER 2022-11-17 11:24 | Emergency (ER) | payer MEDICARE, BC, SELFPAY ==
[2022-11-17 11:35] VITALS: BP 125/103; PULSE 58; RESP 18; TEMP 36.9; O2SAT 98
--- NOTE | 2022-11-17 11:40 | ED.GENADUL_ITS ---
Discharge Plan Disposition Patient Disposition: Home Condition: Good Discharge Details Clinical Impression: Encounter for removal of sutures Primary Care Provider: Virginie Gudino ED Provider: Peace Dumont Home Meds and New Rx's Prescriptions: Continued lidocaine 5 % adhesive patch,medicated 1 patch topical DAILY Qty: 15 0RF Rx Instructions: leave on most painful area for up to 12 hrs acetaminophen [Acetaminophen Extra Strength] 500 mg Tablet 500 - 1,000 mg PO Q6H PRN lithium carbonate 300 mg Capsule 900 mg PO HS gabapentin 600 mg tablet 600 tab PO HS Label Comments: TAKE ONE TABLET BY MOUTH EVERY DAY amoxicillin-pot clavulanate 875-125 mg tablet 1 tab PO BID Qty: 14 0RF lithium carbonate 300 mg tablet extended release 600 mg PO QAM Label Comments: TAKE 2 TABLETS BY MOUTH EVERY MORNING AND TAKE 3 TABLETS EVERY EVENING lorazepam 0.5 mg tablet 0.5 mg PO Q6H PRN Label Comments: TAKE ONE TABLET BY MOUTH EVERY 6 HOURS NEEDED FOR ANXIETY zolpidem 5 mg tablet 5 mg PO HS PRN (Reason: can take half to one tablet) Label Comments: TAKE 1/2 TO 1 TABLET ORALLY NIGHTLY NEEDED FOR SLEEP fluoxetine 20 mg capsule 40 mg PO DAILY Label Comments: TAKE 1 CAPSULE BY MOUTH ONCE DAILY Discharge Instructions Instructions: Stitches Removal (ED) Additional Instructions: Your wound appears to be healing well. No evidence of infection. Please continued with the good care of your wound. The Steri-Strips applied will likely fall off over the next 1 to 2 weeks. Please keep the area clean, dry and covered. Monitor for signs infection including redness, warmth, drainage, increased pain, fever/chills. If you develop these or other new/worsening symptoms please seek care urgently once again. Referrals: Virginie Gudino [Primary Care Provider] - Discharge Data Discharge Date/Time-TO BE ENTERED AT DEPARTURE: 11/17/22 11:49 Medical Decision Making Patient is a pleasant 57-year-old female presenting today with for suture removal. Sutures were placed on the eighth. Wounds been healing well no evidence of infection. Wound edges are well approximated. #5 simple interrupted stitches were removed from the patient's left forearm by myself. Steri-Strips applied in separative fashion to prevent any tugging on the skin edges. We discussed continued wound care. Discussed return precautions, particular signs symptoms of infection. All her questions and concerns were addressed and she is in agreement this plan. HPI General Date/Time Provider Initiated Documentation: 11/17/22 11:40 . Limitations to Documentation: no limitations . Information obtained by: patient, RN notes reviewed and old records reviewed . History of Present Illness 57 year old F presents to the emergency department with the chief complaint of suture removal, described as mild, and is localized to the left and upper extremity. Patient reports no radiation. Patient started experiencing this day(s) and it has been now resolved. Patient notes no other symptoms.. Related Data Home Medications Medication Instructions Recorded Confirmed fluoxetine 20 mg capsule 40 mg PO DAILY 11/29/20 11/17/22 lithium carbonate 300 mg 600 mg PO QAM 11/29/20 11/17/22 tablet,extended release lorazepam 0.5 mg tablet 0.5 mg PO Q6H PRN 11/29/20 11/17/22 zolpidem 5 mg tablet 5 mg PO HS PRN can take half to 11/29/20 11/17/22 one tablet lidocaine 5 % topical patch 1 patch topical DAILY #15 ea 04/17/21 11/17/22 acetaminophen 500 mg tablet 500 - 1,000 mg PO Q6H PRN 05/26/22 11/17/22 (Acetaminophen Extra Strength) gabapentin 600 mg tablet 600 tab PO HS 05/26/22 11/17/22 lithium carbonate 300 mg capsule 900 mg PO HS 05/26/22 11/17/22 amoxicillin 875 mg-potassium 1 tab PO BID #14 tabs 06/11/22 11/17/22 clavulanate 125 mg tablet Previous Rx's Medication Instructions Recorded lidocaine 5 % topical patch 1 patch topical DAILY #15 ea 04/17/21 amoxicillin 875 mg-potassium 1 tab PO BID #14 tabs 06/11/22 clavulanate 125 mg tablet Allergies Allergy/AdvReac Type Severity Reaction Status Date / Time NSAIDS (Non-Steroidal AdvReac Intermediate Other (See Verified 11/17/22 11:38 Anti-Inflamma Comment) General Stated Complaint: SutureRem EDIN: 5 Review of Systems Constitutional Constitutional: Reports as per HPI, Denies chills, Denies fever(s) and Denies weakness Musculoskeletal Musculoskeletal: Reports as per HPI and Denies tingling Integumentary/Breasts Skin/Breast: Reports as per HPI Neurologic Neurologic: Denies sensory deficit, Denies tingling and Denies weakness PFSH All Active Problems (Updated 11/17/22 @ 11:42 by CHRISTO Sánchez) Laceration of forearm, left (Acute) Intentional self-harm by knife, initial encounter (Acute) Encounter for removal of sutures (Acute) Rib pain on right side (Acute) Social History Smoking/Tobacco Use Status: Former Tobacco Use Smoking risk assessment performed?: Yes Alcohol Intake: current Alcohol Intake frequency: 0-2 drinks per day Alcohol type: wine Substance use type: does not use Do you feel safe at home: Yes Do you feel safe in your relationship?: Yes Exam Const General: cooperative, healthy appearing, comfortable, no acute distress and well developed Nutritional Appearance: average body habitus and well nourished Orientation: alert and awake Resp Effort & Inspection: normal respiratory effort, able to speak in complete sentences and no respiratory distress Cardio Rate: regular rate Rhythm: regular rhythm Skin Trauma: laceration (healing well, left forearm) Neuro General: patient alert and patient awake Cognition: normal cognition Speech: speech normal Gait: normal gait Motor: muscle tone normal throughout Psych Appearance: grossly normal and well kempt Mental Status: mental status grossly normal Speech and Movement: speech and movement normal Course Vital Signs Vital signs: Vital Signs Temperature 36.9 C 11/17/22 11:35 Pulse 58 L 11/17/22 11:35 Respiratory Rate 18 11/17/22 11:35 Blood Pressure 125/103 H 11/17/22 11:35 Pulse Oximetry 98 11/17/22 11:35 Temperature 36.9 C 11/17/22 11:35 Temperature Source Temporal Artery Scan 11/17/22 11:35 Pulse 58 L 11/17/22 11:35 Respiratory Rate 18 11/17/22 11:35 Respiratory Effort Non-Labored 11/17/22 11:39 Blood Pressure 125/103 H 11/17/22 11:35 Blood Pressure Position Sitting 11/17/22 11:35 Pulse Oximetry 98 11/17/22 11:35 Oxygen Delivery Method Room Air 11/17/22 11:35 Oxygen Flow Rate 0 11/17/22 11:35 PAWSS Have you Been Recently Intoxicated or Drunk Within the Last 30 days?: No Have you Ever Experienced Previous Episodes of Alcohol Withdrawal?: No Have you ever Experienced Withdrawal Seizures?: No Have you ever Experienced Delirium Tremens(DT)s?: No Have you ever undergone Alcohol Rehabilitation Treatment (i.e, inpt ot outpatient treatment programs)?: No Have you ever Experienced Blackouts?: No Have you ever Combined Alcohol with other Downers within the last 90 days?: No Have you ever Combined Alcohol with any other Substance of Abuse during the last 90 days?: No Positive Blood Alcohol level on Presentation? [PCS.BAL]: No Evidence of Increased Autonomic Activity (i.e. HR>120, tremor, sweating, agitation, nausea)?: No Result: 0
== END 2022-11-17 11:49 | disposition home or self-care (01) ==
PROVIDERS: Emergency Provider Physician Assistant; PCP Nurse Practitioner Family
DX: S51.812D Laceration without foreign body of left forearm, subsequent encounter (principal); X58.XXXD Exposure to other specified factors, subsequent encounter; Z48.02 Encounter for removal of sutures

== ENCOUNTER 2022-12-31 04:16 | Outpatient (CLI) | payer MEDICARE, BC, SELFPAY ==
[2022-12-31 10:17] LABS: ALT 32 U/L (14-59); AST 16 U/L (15-37); Albumin 3.7 g/dL (3.4-5.0); Alkaline Phosphatase 101 U/L (46-116); Anion Gap 6.2 mmol/L (3-11); BUN 17 mg/dL (7-18); Bilirubin, Total 0.3 mg/dL (0.2-1.0); CO2 28.8 mmol/L (21.0-32.0); CREATININE 1.2 mg/dL (0.55-1.02); Calcium 10.2 mg/dL (8.5-10.1); Chloride 108 mmol/L (98-107); Estimated GFR 53.46 (mL/min/1.73m2); FREE T4 0.74 ng/dL (0.76-1.46); Glucose 90 mg/dL (74-106); Potassium 4.1 mmol/L (3.5-5.1); Sodium 143 mmol/L (136-145); TSH 0.94 uIU/mL (0.36-3.74); Total Protein 7.1 g/dL (6.4-8.2)
== END 2022-12-31 04:17 | disposition home or self-care (01) ==
PROVIDERS: PCP Nurse Practitioner Family; Visit Provider Nurse Practitioner
DX: Z79.899 Other long term (current) drug therapy (principal)
CPT/HCPCS: 36415; 80053; 80178; 84439; 84443

== ENCOUNTER 2023-03-12 01:09 | Outpatient (CLI) | payer MEDICARE, BC, SELFPAY ==
--- NOTE | 2023-03-12 12:00 | DI.MAMMO_ITS ---
Exam(s) MAMMO SCREENING EXAM: MAMMO SCREENING CLINICAL HISTORY: SCREENING, Z12.39 TECHNIQUE: Mammograms were interpreted according to the usual protocol including computer analysis w [employer] CAD system, tomosynthesis and C-view imaging. COMPARISON: 2017 and 2020 FINDINGS: The breasts are composed of scattered fibroglandular densities, Breast Density category B. No suspicious masses or suspicious microcalcifications are seen. No skin thickening or abnormal axillary lymph nodes are seen. There has been no significant change from prior exams. IMPRESSION: BI-RADS Category 1, Negative mammogram Yearly screening mammography is recommended. Breast Density - Category B, scattered fibroglandular densities. A negative radiographic report should not delay biopsy if a dominant or clinically suspicious mass is present. Up to ten percent of cancers are not identified on mammography. A negative report may reinforce clinical impression. Adenosis and dense breasts may obscure an underlying neoplasm. False positive reports average 6 to 10%. Patient will receive a letter notifying them of these results.
== END 2023-03-12 01:29 ==
LOC: DI 01:10
PROVIDERS: PCP Nurse Practitioner Family; Visit Provider Nurse Practitioner Family
DX: Z12.31 Encounter for screening mammogram for malignant neoplasm of breast (principal)
CPT/HCPCS: 77063; 77067

== ENCOUNTER 2023-03-27 13:28 | Outpatient (REF) | payer MEDICARE, BC, SELFPAY ==
[2023-03-27 14:34] LABS: Calculated LDL 235 mg/dL (<100); Cholesterol 339 mg/dL (<200); HDL Cholesterol 74 mg/dL (40-60); TSH (W/Ref FT4) 2.13 uIU/mL (0.36-3.74); Triglyceride 152 mg/dL (<150)
== END 2023-03-27 13:29 | disposition home or self-care (01) ==
LOC: NCHCN 13:28
PROVIDERS: PCP Nurse Practitioner Family; Visit Provider Nurse Practitioner Family
DX: E04.2 Nontoxic multinodular goiter (principal); E78.89 Other lipoprotein metabolism disorders
CPT/HCPCS: 80061; 84443

== ENCOUNTER 2023-04-15 03:08 | Outpatient (CLI) | payer MEDICARE, BC, SELFPAY ==
[2023-04-15 12:34] LABS: ALT 37 U/L (14-59); AST 17 U/L (15-37); Albumin 3.7 g/dL (3.4-5.0); Alkaline Phosphatase 91 U/L (46-116); Anion Gap 6.9 mmol/L (3-11); BUN 19 mg/dL (7-18); Bilirubin, Total 0.4 mg/dL (0.2-1.0); CO2 28.1 mmol/L (21.0-32.0); CREATININE 1.1 mg/dL (0.55-1.02); Calcium 10.3 mg/dL (8.5-10.1); Chloride 105 mmol/L (98-107); Estimated GFR 59.34 (mL/min/1.73m2); Glucose 105 mg/dL (74-106); Potassium 4.2 mmol/L (3.5-5.1); Sodium 140 mmol/L (136-145); TSH (W/Ref FT4) 1.61 uIU/mL (0.36-3.74); Total Protein 7.4 g/dL (6.4-8.2); Vitamin B12 615 pg/mL (193-986)
== END 2023-04-15 03:09 | disposition home or self-care (01) ==
PROVIDERS: PCP Nurse Practitioner Family; Visit Provider Nurse Practitioner
DX: F31.89 Other bipolar disorder (principal); Z79.899 Other long term (current) drug therapy; Z51.81 Encounter for therapeutic drug level monitoring; E04.2 Nontoxic multinodular goiter; E78.89 Other lipoprotein metabolism disorders
CPT/HCPCS: 36415; 80053; 82306; 80178; 82607; 84443

== ENCOUNTER 2023-06-06 19:36 | Emergency (ER) | payer MEDICARE, BC, SELFPAY ==
[2023-06-06 19:39] VITALS: BP 130/77; PULSE 77; RESP 16; TEMP 36.6; O2SAT 94
--- NOTE | 2023-06-06 21:27 | ED.GENADUL_ITS ---
Discharge Plan Disposition Patient Disposition: Home Discharge Details Clinical Impression: Contusion, Abrasion Primary Care Provider: Sandy Gordon ED Provider: Wilbert Zamudio Home Meds and New Rx's Prescriptions: Continued lidocaine 5 % adhesive patch,medicated 1 patch topical DAILY Qty: 15 0RF Rx Instructions: leave on most painful area for up to 12 hrs acetaminophen [Acetaminophen Extra Strength] 500 mg Tablet 500 - 1,000 mg PO Q6H PRN lithium carbonate 300 mg Capsule 900 mg PO HS gabapentin 600 mg tablet 600 tab PO HS Patient Comments: TAKE ONE TABLET BY MOUTH EVERY DAY amoxicillin-pot clavulanate 875-125 mg tablet 1 tab PO BID Qty: 14 0RF lithium carbonate 300 mg tablet extended release 600 mg PO QAM Patient Comments: TAKE 2 TABLETS BY MOUTH EVERY MORNING AND TAKE 3 TABLETS EVERY EVENING lorazepam 0.5 mg tablet 0.5 mg PO Q6H PRN Patient Comments: TAKE ONE TABLET BY MOUTH EVERY 6 HOURS NEEDED FOR ANXIETY zolpidem 5 mg tablet 5 mg PO HS PRN (Reason: can take half to one tablet) Patient Comments: TAKE 1/2 TO 1 TABLET ORALLY NIGHTLY NEEDED FOR SLEEP fluoxetine 20 mg capsule 40 mg PO DAILY Patient Comments: TAKE 1 CAPSULE BY MOUTH ONCE DAILY Discharge Instructions Instructions: Contusion in Adults (ED), Abrasion (ED) Medical Decision Making Could have been a tick bite. Could have been an insect bite. More likely direct trauma to the skin. Gave the patient precautions on cellulitis or worsening. Central area of necrosis but this area is not endemic to recluse spider bites. Already counseled her to give localized wound care. HPI General Date/Time Provider Initiated Documentation: 06/06/23 21:27 . Limitations to Documentation: no limitations . Information obtained by: patient . HPI Narrative: Patient with an unknown injury to her left posterior thigh. She thinks it could have been a spider or a tick that bit her. Happened couple hours before presenting the emergency department. She also suspects that it could be from sitting on a wooden bench and sustaining an injury from that. Related Data Home Medications Medication Instructions Recorded Confirmed fluoxetine 20 mg capsule 40 mg PO DAILY 11/29/20 06/06/23 lithium carbonate 300 mg 600 mg PO QAM 11/29/20 06/06/23 tablet,extended release lorazepam 0.5 mg tablet 0.5 mg PO Q6H PRN 11/29/20 06/06/23 zolpidem 5 mg tablet 5 mg PO HS PRN can take half to 11/29/20 06/06/23 one tablet lidocaine 5 % topical patch 1 patch topical DAILY #15 ea 04/17/21 06/06/23 acetaminophen 500 mg tablet 500 - 1,000 mg PO Q6H PRN 05/26/22 06/06/23 (Acetaminophen Extra Strength) gabapentin 600 mg tablet 600 tab PO HS 05/26/22 06/06/23 lithium carbonate 300 mg capsule 900 mg PO HS 05/26/22 06/06/23 amoxicillin 875 mg-potassium 1 tab PO BID #14 tabs 06/11/22 06/06/23 clavulanate 125 mg tablet Previous Rx's Medication Instructions Recorded lidocaine 5 % topical patch 1 patch topical DAILY #15 ea 04/17/21 amoxicillin 875 mg-potassium 1 tab PO BID #14 tabs 06/11/22 clavulanate 125 mg tablet Allergies Allergy/AdvReac Type Severity Reaction Status Date / Time NSAIDS (Non-Steroidal AdvReac Intermediate Other (See Verified 11/17/22 11:38 Anti-Inflamma Comment) General Stated Complaint: InsectBite EDIN: 5 Review of Systems Narrative: MUSC: Negative for muscle aches, edema. SKIN: Negative rash, lesions/sores. NEURO: Negative headache, dizziness, weakness. PFSH All Active Problems Contusion (Acute) Abrasion (Acute) Rib pain on right side (Acute) Social History Smoking/Tobacco Use Status: Former Tobacco Use Smoking risk assessment performed?: Yes Alcohol Intake: current Alcohol Intake frequency: 0-2 drinks per day Alcohol type: wine Substance use type: does not use Do you feel safe at home: Yes Do you feel safe in your relationship?: Yes Exam Skin Other: Central area of a scab with abraded tissue and then a circular area of ecchymosis around that. No evidence of cellulitis. Close examination with magnification reveals that there is no embedded tick. Course Vital Signs Vital signs: Vital Signs Temperature 36.6 C 06/06/23 19:39 Pulse 77 06/06/23 19:39 Respiratory Rate 16 06/06/23 19:39 Blood Pressure 130/77 06/06/23 19:39 Pulse Oximetry 94 06/06/23 19:39 Temperature 36.6 C 06/06/23 19:39 Temperature Source Oral 06/06/23 19:39 Pulse 77 06/06/23 19:39 Respiratory Rate 16 06/06/23 19:39 Respiratory Effort Normal, Non-Labored 06/06/23 19:48 Blood Pressure 130/77 06/06/23 19:39 Blood Pressure Position Sitting 06/06/23 19:39 Pulse Oximetry 94 06/06/23 19:39 Oxygen Delivery Method Room Air 06/06/23 19:39 Oxygen Flow Rate 0 06/06/23 19:39 Pain Level 0 06/06/23 19:39 PAWSS Have you Been Recently Intoxicated or Drunk Within the Last 30 days?: No Have you Ever Experienced Previous Episodes of Alcohol Withdrawal?: No Have you ever Experienced Withdrawal Seizures?: No Have you ever Experienced Delirium Tremens(DT)s?: No Have you ever undergone Alcohol Rehabilitation Treatment (i.e, inpt ot outpatient treatment programs)?: No Have you ever Experienced Blackouts?: No Have you ever Combined Alcohol with other Downers within the last 90 days?: Yes Have you ever Combined Alcohol with any other Substance of Abuse during the last 90 days?: No Positive Blood Alcohol level on Presentation? [PCS.BAL]: No Evidence of Increased Autonomic Activity (i.e. HR>120, tremor, sweating, agitation, nausea)?: No Result: 0
== END 2023-06-06 21:47 | disposition home or self-care (01) ==
PROVIDERS: Emergency Provider Emergency Medicine; PCP Nurse Practitioner Family
DX: S70.12XA Contusion of left thigh, initial encounter (principal); X58.XXXA Exposure to other specified factors, initial encounter
CPT/HCPCS: 99281; 99282

== ENCOUNTER 2023-08-27 08:57 | Emergency (ER) | payer MEDICARE, BC, SELFPAY ==
[2023-08-27] VITALS (23 sets, daily range): BP systolic 127–177; BP diastolic 65–126; PULSE 54–68; RESP 10–27; TEMP 36.5; O2SAT 94–98
--- NOTE | 2023-08-27 09:00 | RT.EKG_ITS ---
APPROVED REPORT Exam: Resting ECG Reason for Exam: Confusion Patient Location: E HR:57 bpm ECG Measurements Heart Rate 57 AXIS AZ 186 P 49 QRSd 101 QRS -38 QT 456 T 12 QTc 445 Conclusion Sinus bradycardia...rate< 60 Left axis deviation...QRS axis (-30,-90)
--- NOTE | 2023-08-27 09:15 | DI.RAD_ITS ---
Exam(s) XR CHEST 2V PA LATERAL EXAM: XR CHEST 2V PA LATERAL CLINICAL HISTORY: Confusion. TECHNIQUE: 2D digital imaging was performed. COMPARISON: CR XR RIBS RT W PA LAT CHEST from 04/18/2021 FINDINGS: 2 views: Heart size is normal. The mediastinum is not widened. Lungs are clear. No infiltrates nor pleural effusions. IMPRESSION: No acute pulmonary findings. DATA REPOSITORY: RADIATION DOSE DELIVERED:
--- NOTE | 2023-08-27 09:18 | DI.CT_ITS ---
Exam(s) CT HEAD WO EXAM: CT HEAD WO CLINICAL HISTORY: Confusion. TECHNIQUE: Imaging Protocol: Axial computed tomography images with coronal and sagittal reformatted images were created and reviewed COMPARISON: No exams were available for comparison FINDINGS: There are no skull fractures. There is no fluid in the visualized paranasal sinuses. There is no evidence of intracranial hemorrhage, mass effect, or shift of midline structures. There are no extra-axial fluid collections. The ventricles are not enlarged or shifted and there is no blo od within the ventricular system nor within the basal cisterns. IMPRESSION: No acute intracranial findings on this noninfused CT scan of the brain. RADIATION DOSE DELIVERED: 723.66mGy.cm Total DLP DATA REPOSITORY: All CT scans at this facility are submitted to the National Radiology Data Registry (NRDR) Dose Index Registry (DIR) with the [employer] ([employer]). RADIATION OPTIMIZATION: All CT scans at this facility use at least one of these dose optimization te chniques: automated exposure control; mA and/or kV adjustment per patient size (includes targeted exa ms where dose is matched to clinical indication); or iterative reconstruction.
--- NOTE | 2023-08-27 09:19 | ED.GENADUL_ITS ---
Discharge Plan Disposition Patient Disposition: Home Condition: Improving Discharge Details Clinical Impression: UTI (urinary tract infection) Primary Care Provider: Sandy Gordon ED Provider: Elena Gagnon Home Meds and New Rx's Prescriptions: New cephalexin 500 mg capsule 500 mg PO BID 10 Days Qty: 20 0RF Rx Instructions: Take one tablet by mouth twice daily x 10 days Continued acetaminophen [Acetaminophen Extra Strength] 500 mg Tablet 500 - 1,000 mg PO Q6H PRN No Action lidocaine 5 % adhesive patch,medicated 1 patch topical DAILY Qty: 15 0RF Rx Instructions: leave on most painful area for up to 12 hrs lithium carbonate 300 mg Capsule 900 mg PO HS gabapentin 600 mg tablet 600 tab PO HS Patient Comments: TAKE ONE TABLET BY MOUTH EVERY DAY amoxicillin-pot clavulanate 875-125 mg tablet 1 tab PO BID Qty: 14 0RF lithium carbonate 300 mg tablet extended release 600 mg PO QAM Patient Comments: TAKE 2 TABLETS BY MOUTH EVERY MORNING AND TAKE 3 TABLETS EVERY EVENING lorazepam 0.5 mg tablet 0.5 mg PO Q6H PRN Patient Comments: TAKE ONE TABLET BY MOUTH EVERY 6 HOURS NEEDED FOR ANXIETY zolpidem 5 mg tablet 5 mg PO HS PRN (Reason: can take half to one tablet) Patient Comments: TAKE 1/2 TO 1 TABLET ORALLY NIGHTLY NEEDED FOR SLEEP fluoxetine 20 mg capsule 40 mg PO DAILY Patient Comments: TAKE 1 CAPSULE BY MOUTH ONCE DAILY Discharge Instructions Instructions: Urinary Tract Infection in Women (ED) Additional Instructions: At this time the head CT is within normal limits, it does appear you have a urinary tract infection and this can cause confusion. Follow up with primary care provider in 3-5 days. Return to ED sooner if any worsening or concerns. Increase oral fluids. Please take the antibiotic with yogurt or probiotic twice daily for the next 10 days as prescribed. Your lithium level was slightly elevated, The normal range is 0.6-1.2: you are at 1.8. Referrals: Sandy Gordon [Primary Care Provider] - 5 days Medical Decision Making 58-year-old female to the ER accompanied by her son with a chief complaint of confusion. The son reports that she had a prescription of Librium for alcohol withdrawal for the last 4 days and finished the prescription 2 days ago. She is confused and altered. He reports that she has been falling having delirium. She reports that she fell down the stairs last night denies any loss of consciousness. She is able to tell me that she is in the hospital is unable to tell me her name date of , she thinks it is Thursday. BGL upon arrival is 94. She is slow to respond to questions. Work-up ordered including urinalysis, CBC CMP troponin, EKG head CT chest x-ray. Urine drug screen alcohol level salicylate Tylenol lithium level. No obvious focal neurodeficits, patient does have a small tremor to her upper extremities, she is not tachycardic upon arrival. No facial droop. She does have dry mucous membranes. Differential diagnosis includes not limited to electrolyte abnormality, acute delirium, alcohol withdrawal, CVA, UTI 0943: Spoke with patients Noble, he states she is a binge drinker who st opped drinking Thursday or Thursday, he reports that she has not been oriented since starting Librium. 1133: Re-evaluation, patient seems a little more alert, discussed urinary tract infection she reports her Mother who is 85 also has a UTI currently. Is receiving antibiotics and IV fluids. Repeat Troponin negative. Discharged into the care of her son, ambulatory in department without assista nce. Improved from initial presentation. Patient was prescribed cephalexin. This text was generated using [employer] dictation system, please disregard any oddities of phrase or misspellings. Medical Records Medical records reviewed: Yes I reviewed the patient's medical records. Imaging Data Radiologic Study: Imaging: CT Scan Radiologist's impression: IMPRESSION: No acute intracranial findings on this noninfused CT scan of the brain. Lab Data Lab results reviewed: Yes I reviewed the patient's lab results. Labs: 08/27/23 10:34 Urine - Reflex from Ua Urine Culture - Pending Laboratory Tests Range/Units 08/27/23 08/27/23 08/27/23 09:25 09:25 09:25 WBC (4.4-10.8) 10^3/uL 5.40 RBC (3.93-5.22) 10^6/uL 4.58 Hgb (11.2-15.7) g/dL 14.1 Hct (36.0-46.0) % 43.9 MCV (80-95) fL 96 H MCH (27.0-33.0) pg 30.8 MCHC (32.0-36.0) % 32.1 RDW (11.7-14.6) % 13.0 Plt Count (130-400) 10^3/uL 267 MPV (8.0-11.0) fL 10.0 Immature Gran % 0.2 Neutrophils % 62.6 Lymphocytes % 24.1 Monocytes % 9.1 Eosinophils % 3.3 Basophils % 0.7 Nucleated RBC % (0.0-0.3) % 0.0 Absolute Neutrophils (1.2-6.7) 10^3/uL 3.38 Absolute Lymphocytes (1.2-3.4) 10^3/uL 1.30 Absolute Monocytes (0.1-0.8) 10^3/uL 0.49 Absolute Eosinophils (0.0-0.7) 10^3/uL 0.18 Absolute Basophils (0.0-0.2) 10^3/uL 0.04 Sodium (136-145) mmol/L 143 Potassium (3.5-5.1) mmol/L 3.8 Chloride (98-107) mmol/L 107 Carbon Dioxide (21.0-32.0) mmol/L 26.8 Anion Gap (3-11) mmol/L 9.2 BUN (7-18) mg/dL 14 Creatinine (0.55-1.02) mg/dL 1.3 H Est GFR (CKD-EPI 2020) (mL/min/1.73m2) 48.26 Glucose (74-106) mg/dL 107 H Calcium (8.5-10.1) mg/dL 10.9 H Magnesium (1.8-2.4) mg/dL 2.2 Total Bilirubin (0.2-1.0) mg/dL 0.4 AST (15-37) U/L 25 ALT (14-59) U/L 39 Alkaline Phosphatase (46-116) U/L 91 Ammonia (11-32) umol/L Troponin I (<or=60) ng/L < 50 Total Protein (6.4-8.2) g/dL 7.5 Albumin (3.4-5.0) g/dL 3.9 Urine Color (Yellow) Urine Clarity (Clear) Urine pH (5-8) Ur Specific [place] (1.005-1.025) Urine Protein (Negative) mg/dL Urine Ketones (Negative) mg/dL Urine Blood (Negative) Urine Nitrite (Negative) Urine Bilirubin (Negative) Urine Urobilinogen (Up to 0.2) mg/dL Ur Leukocyte Esterase (Negative) Urine RBC (0-2) HPF Urine WBC (0-5) HPF Ur Epithelial Cells (Negative) HPF Urine Crystals (Negative) HPF Urine Bacteria (Negative) HPF Urine Casts (Negative) LPF Urine Mucus (Negative) Ur Culture Indicated? Urine Glucose (Negative) mg/dL Salicylates (<2.8) mg/dL Urine Opiates Screen (Negative) Urine Methadone Screen (Negative) Acetaminophen (10-30) ug/mL Ur Barbiturates Screen (Negative) Ur Tricyclics Screen (Negative) Ur Amphetamines Screen (Negative) U Benzodiazepines Scrn (Negative) [place] (0.6-1.2) mmol/l 1.8 H Urine Cocaine Screen (Negative) Ur THC Screen (Negative) Ethyl Alcohol (<10) mg/dL < 3.0 Range/Units 08/27/23 08/27/23 08/27/23 09:25 10:29 10:34 WBC (4.4-10.8) 10^3/uL RBC (3.93-5.22) 10^6/uL Hgb (11.2-15.7) g/dL Hct (36.0-46.0) % MCV (80-95) fL MCH (27.0-33.0) pg MCHC (32.0-36.0) % RDW (11.7-14.6) % Plt Count (130-400) 10^3/uL MPV (8.0-11.0) fL Immature Gran % Neutrophils % Lymphocytes % Monocytes % Eosinophils % Basophils % Nucleated RBC % (0.0-0.3) % Absolute Neutrophils (1.2-6.7) 10^3/uL Absolute Lymphocytes (1.2-3.4) 10^3/uL Absolute Monocytes (0.1-0.8) 10^3/uL Absolute Eosinophils (0.0-0.7) 10^3/uL Absolute Basophils (0.0-0.2) 10^3/uL Sodium (136-145) mmol/L Potassium (3.5-5.1) mmol/L Chloride (98-107) mmol/L Carbon Dioxide (21.0-32.0) mmol/L Anion Gap (3-11) mmol/L BUN (7-18) mg/dL Creatinine (0.55-1.02) mg/dL Est GFR (CKD-EPI 2020) (mL/min/1.73m2) Glucose (74-106) mg/dL Calcium (8.5-10.1) mg/dL Magnesium (1.8-2.4) mg/dL Total Bilirubin (0.2-1.0) mg/dL AST (15-37) U/L ALT (14-59) U/L Alkaline Phosphatase (46-116) U/L Ammonia (11-32) umol/L 15 Troponin I (<or=60) ng/L Total Protein (6.4-8.2) g/dL Albumin (3.4-5.0) g/dL Urine Color (Yellow) Urine Clarity (Clear) Urine pH (5-8) Ur Specific [place] (1.005-1.025) Urine Protein (Negative) mg/dL Urine Ketones (Negative) mg/dL Urine Blood (Negative) Urine Nitrite (Negative) Urine Bilirubin (Negative) Urine Urobilinogen (Up to 0.2) mg/dL Ur Leukocyte Esterase (Negative) Urine RBC (0-2) HPF Urine WBC (0-5) HPF Ur Epithelial Cells (Negative) HPF Urine Crystals (Negative) HPF Urine Bacteria (Negative) HPF Urine Casts (Negative) LPF Urine Mucus (Negative) Ur Culture Indicated? Urine Glucose (Negative) mg/dL Salicylates (<2.8) mg/dL < 2.8 Urine Opiates Screen (Negative) Negative Urine Methadone Screen (Negative) Negative Acetaminophen (10-30) ug/mL < 2 Ur Barbiturates Screen (Negative) Negative Ur Tricyclics Screen (Negative) Negative Ur Amphetamines Screen (Negative) Negative U Benzodiazepines Scrn (Negative) Positive A [place] (0.6-1.2) mmol/l Urine Cocaine Screen (Negative) Negative Ur THC Screen (Negative) Negative Ethyl Alcohol (<10) mg/dL Range/Units 08/27/23 08/27/23 10:34 12:15 WBC (4.4-10.8) 10^3/uL RBC (3.93-5.22) 10^6/uL Hgb (11.2-15.7) g/dL Hct (36.0-46.0) % MCV (80-95) fL MCH (27.0-33.0) pg MCHC (32.0-36.0) % RDW (11.7-14.6) % Plt Count (130-400) 10^3/uL MPV (8.0-11.0) fL Immature Gran % Neutrophils % Lymphocytes % Monocytes % Eosinophils % Basophils % Nucleated RBC % (0.0-0.3) % Absolute Neutrophils (1.2-6.7) 10^3/uL Absolute Lymphocytes (1.2-3.4) 10^3/uL Absolute Monocytes (0.1-0.8) 10^3/uL Absolute Eosinophils (0.0-0.7) 10^3/uL Absolute Basophils (0.0-0.2) 10^3/uL Sodium (136-145) mmol/L Potassium (3.5-5.1) mmol/L Chloride (98-107) mmol/L Carbon Dioxide (21.0-32.0) mmol/L Anion Gap (3-11) mmol/L BUN (7-18) mg/dL Creatinine (0.55-1.02) mg/dL Est GFR (CKD-EPI 2020) (mL/min/1.73m2) Glucose (74-106) mg/dL Calcium (8.5-10.1) mg/dL Magnesium (1.8-2.4) mg/dL Total Bilirubin (0.2-1.0) mg/dL AST (15-37) U/L ALT (14-59) U/L Alkaline Phosphatase (46-116) U/L Ammonia (11-32) umol/L Troponin I (<or=60) ng/L < 50 Total Protein (6.4-8.2) g/dL Albumin (3.4-5.0) g/dL Urine Color (Yellow) Yellow Urine Clarity (Clear) Clear Urine pH (5-8) 7.0 Ur Specific [place] (1.005-1.025) 1.010 Urine Protein (Negative) mg/dL Negative Urine Ketones (Negative) mg/dL Negative Urine Blood (Negative) Trace-intact H Urine Nitrite (Negative) Negative Urine Bilirubin (Negative) Negative Urine Urobilinogen (Up to 0.2) mg/dL 0.2 Ur Leukocyte Esterase (Negative) Small H Urine RBC (0-2) HPF 0-2 Urine WBC (0-5) HPF 3-5 Ur Epithelial Cells (Negative) HPF Few Urine Crystals (Negative) HPF Negative Urine Bacteria (Negative) HPF Rare Urine Casts (Negative) LPF Negative Urine Mucus (Negative) Negative Ur Culture Indicated? Yes Urine Glucose (Negative) mg/dL Negative Salicylates (<2.8) mg/dL Urine Opiates Screen (Negative) Urine Methadone Screen (Negative) Acetaminophen (10-30) ug/mL Ur Barbiturates Screen (Negative) Ur Tricyclics Screen (Negative) Ur Amphetamines Screen (Negative) U Benzodiazepines Scrn (Negative) [place] (0.6-1.2) mmol/l Urine Cocaine Screen (Negative) Ur THC Screen (Negative) Ethyl Alcohol (<10) mg/dL HPI General Mode of arrival: wheelchair . Date/Time Provider Initiated Documentation: 08/27/23 09:07 . Limitations to Documentation: no limitations . Information obtained by: patient, family (Son), RN notes reviewed and old records reviewed . HPI Narrative: 58-year-old female to the ER accompanied by her son with a chief complaint of confusion. The son reports that she had a prescription of Librium for alcohol withdrawal for the last 4 days and finished the prescription 2 days ago. She is confused and altered. He reports that she has been falling having delirium. She reports that she fell down the stairs last night denies any loss of con sciousness. She is able to tell me that she is in the hospital is unable to tell me her name date of , she thinks it is Thursday. BGL upon arrival is 94. She is slow to respond to questions. Related Data Home Medications Medication Instructions Recorded Confirmed fluoxetine 20 mg capsule 40 mg PO DAILY 11/29/20 06/06/23 lithium carbonate 300 mg 600 mg PO QAM 11/29/20 06/06/23 tablet,extended release lorazepam 0.5 mg tablet 0.5 mg PO Q6H PRN 11/29/20 06/06/23 zolpidem 5 mg tablet 5 mg PO HS PRN can take half to 11/29/20 06/06/23 one tablet lidocaine 5 % topical patch 1 patch topical DAILY #15 ea 04/17/21 06/06/23 acetaminophen 500 mg tablet 500 - 1,000 mg PO Q6H PRN 05/26/22 06/06/23 (Acetaminophen Extra Strength) gabapentin 600 mg tablet 600 tab PO HS 05/26/22 06/06/23 lithium carbonate 300 mg capsule 900 mg PO HS 05/26/22 06/06/23 amoxicillin 875 mg-potassium 1 tab PO BID #14 tabs 06/11/22 06/06/23 clavulanate 125 mg tablet cephalexin 500 mg capsule 500 mg PO BID urinary tract 08/27/23 infection 10 days #20 caps Previous Rx's Medication Instructions Recorded lidocaine 5 % topical patch 1 patch topical DAILY #15 ea 04/17/21 amoxicillin 875 mg-potassium 1 tab PO BID #14 tabs 06/11/22 clavulanate 125 mg tablet cephalexin 500 mg capsule 500 mg PO BID urinary tract 08/27/23 infection 10 days #20 caps Allergies Allergy/AdvReac Type Severity Reaction Status Date / Time NSAIDS (Non-Steroidal AdvReac Intermediate Other (See Verified 08/27/23 09:35 Anti-Inflamma Comment) General Stated Complaint: AMS/LOC EDIN: 3 Review of Systems Narrative: History limited due to AMS, supplied by son All systems reviewed & are unremarkable except as noted in HPI and below Constitutional Constitutional: Reports frequent falls and Denies headache(s) ENT Ears, Nose, Mouth, and Throat: Denies headache(s) Neurologic Neurologic: Reports as per HPI, Reports confusion, Reports frequent falls and Denies headache(s) Psychiatric Psychiatric: Reports confusion PFSH All Active Problems (Updated 08/27/23 @ 11:10 by Elena Gagnon NP) UTI (urinary tract infection) (Acute) Rib pain on right side (Acute) Social History Smoking/Tobacco Use Status: Former Tobacco Use Smoking risk assessment performed?: Yes Alcohol Intake: current Alcohol Intake frequency: 0-2 drinks per day Alcohol type: wine Drug use: Never Substance use type: does not use Housing: house Do you feel safe at home: Yes Do you feel safe in your relationship?: Yes Additional Social history: son lives with her Exam Narrative Exam Narrative: Constitutional: Oriented x 1. Appears stated age. Normal body habitus. Very slow to respond. Head: Normocephalic, no trauma. Eyes: Pupils PERRL, Red reflex noted, EOM's intact. Eyelids symmetrical without lesions, discharge, or swelling. ENT: Bilateral TM's WNL, External ear normal to inspection, no mastoid TTP, swelling, or erythema, Nasal turbinates WNL, no nasal discharge. Normal dentition, Posterior pharynx WNL, no exudate. Dry mucous membranes Chest: RRR, Normal S1, S2, distal pulses intact. Resp: Lungs clear to auscultation bilaterally, no wheezes, rales, or rhonchi. Abdomen: Soft, non-distended, Normoactive bowel sounds all 4 quads. Musculoskeletal: Normal gait, 5/5 strength to all four extremities. Skin: No suspicious rashes or lesions. Capillary refill less than 2 sec. Neurologic: Cranial nerves II-XII intact. Alert and oriented x 1. Motor: No deficits noted. Sensory: Intact bilaterally all 4 extremities. No facial droop, tongue midline, intact finger to nose, No pronater drift. Hematologic/Lymphatic: No ecchymosis, no lymphadenopathy. Course Vital Signs Vital signs: Vital Signs Temperature 36.5 C 08/27/23 09:05 Pulse 68 08/27/23 09:05 Respiratory Rate 20 08/27/23 09:05 Blood Pressure 143/82 H 08/27/23 09:05 Pulse Oximetry 97 08/27/23 09:05 Temperature 36.5 C 08/27/23 09:05 Temperature Source Skin 08/27/23 09:05 Pulse 68 08/27/23 09:05 Respiratory Rate 20 08/27/23 09:05 Blood Pressure 143/82 H 08/27/23 09:05 Blood Pressure Position Sitting 08/27/23 09:05 Pulse Oximetry 97 08/27/23 09:05 Oxygen Delivery Method Room Air 08/27/23 09:05 Oxygen Flow Rate 0 08/27/23 09:05 Pain Level 0 08/27/23 09:05
[2023-08-27 09:32] LABS: Abs Immature Grans 0.01 10^3/uL (0.0-0.06); Absolute Basophil Count 0.04 10^3/uL (0.0-0.2); Absolute Eosinophil Count 0.18 10^3/uL (0.0-0.7); Absolute Monocyte Count 0.49 10^3/uL (0.1-0.8); Absolute Neutrophil Count 3.38 10^3/uL (1.2-6.7); Basophils % 0.7; Eosinophils % 3.3; HCT 43.9 % (36.0-46.0); HGB 14.1 g/dL (11.2-15.7); Immature Grans % 0.2; Lymphocytes % 24.1; MCH 30.8 pg (27.0-33.0); MCHC 32.1 % (32.0-36.0); MCV 96 fL (80-95); Monocytes % 9.1; Neutrophils % 62.6; Platelet Count 267 10^3/uL (130-400); RBC 4.58 10^6/uL (3.93-5.22); RDW-SD 46.1 fL
[2023-08-27 09:59] LABS: ALT 39 U/L (14-59); AST 25 U/L (15-37); Albumin 3.9 g/dL (3.4-5.0); Alkaline Phosphatase 91 U/L (46-116); Anion Gap 9.2 mmol/L (3-11); BUN 14 mg/dL (7-18); Bilirubin, Total 0.4 mg/dL (0.2-1.0); CO2 26.8 mmol/L (21.0-32.0); CREATININE 1.3 mg/dL (0.55-1.02); Calcium 10.9 mg/dL (8.5-10.1); Chloride 107 mmol/L (98-107); Estimated GFR 48.26 (mL/min/1.73m2); Glucose 107 mg/dL (74-106); Magnesium 2.2 mg/dL (1.8-2.4); Potassium 3.8 mmol/L (3.5-5.1); Sodium 143 mmol/L (136-145); Total Protein 7.5 g/dL (6.4-8.2); Troponin I < 50 ng/L (<or=60)
[2023-08-27 10:00] LABS: ETHANOL BLOOD < 3.0 mg/dL (<10)
[2023-08-27 10:03] LABS: Salicylate < 2.8 mg/dL (<2.8)
[2023-08-27 10:05] LABS: Acetaminophen < 2 ug/mL (10-30)
[2023-08-27 10:07] LABS: Lithium 1.8 mmol/l (0.6-1.2)
[2023-08-27] MEDS: Normal Saline 1,000 ML 1000 ML IV (10:29)
[2023-08-27 10:45] LABS: Bilirubin Negative (Negative); Blood Trace-intact (Negative); Clarity Clear (Clear); Glucose Negative (Negative); Ketones Negative (Negative); Leukocyte Esterase Small (Negative); Nitrite Negative (Negative); Urobilinogen 0.2 mg/dL (Up to 0.2)
[2023-08-27 10:49] LABS: Ammonia 15 umol/L (11-32)
[2023-08-27 10:51] LABS: Bacteria Rare HPF (Negative); C & S Indicated? Yes; Casts Negative LPF (Negative); Crystals Negative HPF (Negative); Epithelial Cells Few HPF (Negative); Mucus Negative (Negative); RBC 0-2 HPF (0-2)
[2023-08-27 10:58] LABS: *AMPHETAMINES SCREEN URINE Negative (Negative); *BARBITURATES SCREEN URINE Negative (Negative); *BENZODIAZEPINES SCREEN URINE Positive (Negative); Cannabinoids THC Negative (Negative); Cocaine Screen,Urine Negative (Negative); METHADONE URINE SCREEN Negative (Negative); OPIATES URINE SCREEN Negative (Negative)
[2023-08-27 11:01] LABS: Tricyclic Antidepressants Negative (Negative)
[2023-08-27] MEDS: cefTRIAXone 1 GM/50 ML BAG IVPB (11:25)
[2023-08-27 12:38] LABS: Troponin I < 50 ng/L (<or=60)
== END 2023-08-27 13:24 | disposition home or self-care (01) ==
PROVIDERS: Emergency Provider Registered Nurse Emergency; PCP Nurse Practitioner Family
DX: R41.82 Altered mental status, unspecified (principal); N39.0 Urinary tract infection, site not specified; R00.1 Bradycardia, unspecified; Z79.899 Other long term (current) drug therapy; Z87.891 Personal history of nicotine dependence
CPT/HCPCS: 80053; 80307; 93005; 96361; 96365; 99284; 70450; 71046; 80178; 80320; 80329; 81003; 81015; 82140; 83735; 84484; 85025; 87086; 93010; J0696

== ENCOUNTER 2023-09-03 14:08 | Outpatient (REF) | payer MEDICARE, BC, SELFPAY ==
[2023-09-03 18:48] LABS: Abs Immature Grans 0.02 10^3/uL (0.0-0.06); Absolute Basophil Count 0.06 10^3/uL (0.0-0.2); Absolute Eosinophil Count 0.14 10^3/uL (0.0-0.7); Absolute Lymphocyte Count 1.45 10^3/uL (1.2-3.4); Absolute Monocyte Count 0.74 10^3/uL (0.1-0.8); Basophils % 0.7; Eosinophils % 1.7; HCT 42.6 % (36.0-46.0); HGB 13.6 g/dL (11.2-15.7); Immature Grans % 0.2; Lymphocytes % 18.1; MCH 30.6 pg (27.0-33.0); MCHC 31.9 % (32.0-36.0); MCV 96 fL (80-95); MPV 11.2 fL (8.0-11.0); Monocytes % 9.2; Neutrophils % 70.1; Platelet Count 269 10^3/uL (130-400); RBC 4.44 10^6/uL (3.93-5.22); RDW 12.7 % (11.7-14.6); RDW-SD 45.5 fL; WBC 8.01 10^3/uL (4.4-10.8)
[2023-09-03 19:59] LABS: Vitamin D 25 Total 40.7 ng/mL (30-100)
[2023-09-03 20:29] LABS: ALT 36 U/L (14-59); AST 18 U/L (15-37); Albumin 3.8 g/dL (3.4-5.0); Alkaline Phosphatase 91 U/L (46-116); Anion Gap 8.5 mmol/L (3-11); BUN 15 mg/dL (7-18); Bilirubin, Total 0.3 mg/dL (0.2-1.0); CO2 25.5 mmol/L (21.0-32.0); CREATININE 1.3 mg/dL (0.55-1.02); Calcium 10.9 mg/dL (8.5-10.1); Chloride 103 mmol/L (98-107); Estimated GFR 48.26 (mL/min/1.73m2); Ferritin 112 ng/mL (8-252); Folate 3.7 ng/mL (8.6-20.0); Glucose 96 mg/dL (74-106); Potassium 3.9 mmol/L (3.5-5.1); Sodium 137 mmol/L (136-145); Vitamin B12 1035 pg/mL (193-986)
[2023-09-07 09:35] LABS: Kappa Free Light Chain 1.89 mg/dL (0.33-1.94); Lambda Free Light Chain 1.39 mg/dL (0.57-2.63)
[2023-09-07 15:57] LABS: Albumin 60.9 % (55.8-66.1); Albumin g/dL 4.2 g/dL (3.6-5.2); Comment (See Note); Total Protein 6.9 g/dL (6.3-8.2)
[2023-09-07 16:36] LABS: Immunotyping, Serum (See Note)
== END 2023-09-03 14:09 | disposition home or self-care (01) ==
LOC: NCHCN 14:08
PROVIDERS: PCP Nurse Practitioner Family; Visit Provider Nurse Practitioner Family
DX: E55.9 Vitamin D deficiency, unspecified (principal); F10.10 Alcohol abuse, uncomplicated; R41.0 Disorientation, unspecified
CPT/HCPCS: 80053; 82306; 82607; 82728; 82746; 83883; 84165; 85025; 86320

== ENCOUNTER → 2023-09-24 13:37 | Outpatient (BNVA) | payer MEDICARE, BC, SELFPAY | PROVIDERS: PCP Nurse Practitioner Family; Referring Provider Nurse Practitioner Family; Visit Provider Psychiatry & Neurology Neurology | DX: R25.1 Tremor, unspecified (principal); R41.0 Disorientation, unspecified; R48.2 Apraxia | CPT/HCPCS: 99215; G2212 ==

== ENCOUNTER 2023-09-29 08:34 | Outpatient (CLI) | payer MEDICARE, BC, SELFPAY ==
[2023-09-29 09:16] LABS: Lithium 1.5 mmol/l (0.6-1.2)
[2023-09-29 09:34] LABS: Anion Gap 7.7 mmol/L (3-11); BUN 16 mg/dL (7-18); CO2 28.3 mmol/L (21.0-32.0); CREATININE 1.1 mg/dL (0.55-1.02); Calcium 10.7 mg/dL (8.5-10.1); Chloride 109 mmol/L (98-107); Estimated GFR 58.97 (mL/min/1.73m2); Folate 10.3 ng/mL (8.6-20.0); Glucose 97 mg/dL (74-106); Potassium 3.7 mmol/L (3.5-5.1); Sodium 145 mmol/L (136-145); TSH (W/Ref FT4) 2.22 uIU/mL (0.36-3.74)
== END 2023-09-29 08:35 | disposition home or self-care (01) ==
LOC: LBO 08:34
PROVIDERS: PCP Nurse Practitioner Family; Visit Provider Psychiatry & Neurology Neurology
DX: R25.1 Tremor, unspecified (principal)
CPT/HCPCS: 36415; 80048; 80178; 82746; 84443

== ENCOUNTER 2023-10-05 10:29 | Outpatient (CLI) | payer MEDICARE, BC, SELFPAY ==
[2023-10-05 09:07] LABS: Lithium 0.8 mmol/l (0.6-1.2)
[2023-10-05 09:15] LABS: Folate 13.9 ng/mL (8.6-20.0)
[2023-10-05 09:44] LABS: ALT 59 U/L (14-59); AST 32 U/L (15-37); Albumin 3.7 g/dL (3.4-5.0); Alkaline Phosphatase 91 U/L (46-116); Anion Gap 8.7 mmol/L (3-11); BUN 15 mg/dL (7-18); Bilirubin, Total 0.5 mg/dL (0.2-1.0); CO2 27.3 mmol/L (21.0-32.0); CREATININE 1.2 mg/dL (0.55-1.02); Calcium 10.5 mg/dL (8.5-10.1); Chloride 107 mmol/L (98-107); Estimated GFR 53.13 (mL/min/1.73m2); Glucose 88 mg/dL (74-106); Potassium 4.2 mmol/L (3.5-5.1); Sodium 143 mmol/L (136-145); Total Protein 7.1 g/dL (6.4-8.2)
== END 2023-10-05 10:30 | disposition home or self-care (01) ==
PROVIDERS: PCP Nurse Practitioner Family; Visit Provider Nurse Practitioner
DX: F10.20 Alcohol dependence, uncomplicated (principal); Z79.899 Other long term (current) drug therapy
CPT/HCPCS: 36415; 80053; 80178; 82746

== ENCOUNTER → 2023-11-03 01:19 | Outpatient (CLI) | payer MEDICARE, BC, SELFPAY ==
--- NOTE | 2023-11-03 | DI.MRI_ITS ---
Exam(s) MR BRAIN WO EXAM: MR BRAIN WO CLINICAL HISTORY: CONFUSION R41.0 ACUTE ONSET, NORMAL CT. TECHNIQUE: Multiplanar multisequence MRI of the brain was performed. CONTRAST MATERIAL: Noncontrast COMPARISON: No exams were available for comparison FINDINGS: VENTRICLES AND EXTRA AXIAL SPACES: Normal in size and morphology for the patient's age. Cavum velum interpositum variant. HEMORRHAGE: None. CEREBRAL PARENCHYMA: No focus of restricted diffusion to suggest acute infarct. No space-occupying le ervin identified. No abnormal high signal lesions in the white matter. MIDLINE SHIFT: None. BRAINSTEM/CEREBELLUM: Normal. CALVARIUM: Normal. VISUALIZED PARANASAL SINUSES/MASTOIDS: Clear. Orbits: Unremarkable. Pituitary: Normal. Vasculature: Normal flow voids. IMPRESSION: Unremarkable MRI of the brain. DATA REPOSITORY:
== END ==
PROVIDERS: PCP Nurse Practitioner Family; Visit Provider Nurse Practitioner Family
DX: R41.0 Disorientation, unspecified (principal)
CPT/HCPCS: 70551

== ENCOUNTER → 2023-11-13 00:52 | Outpatient (CLI) | payer MEDICARE, BC, SELFPAY ==
--- NOTE | 2023-11-13 | DI.US_ITS ---
Exam(s) US THYROID EXAM: US THYROID CLINICAL HISTORY: NON TOXIC MULTINODULAR GOITER,E04.2. TECHNIQUE: Ultrasound thyroid performed using standard protocol. COMPARISON: US THYROID ULTRASOUND from 02/26/2011 US THYROID ULTRASOUND from 08/29/2011 US US THYROID from 09/06/2019 FINDINGS: ISTHMUS: 4 mm RIGHT LOBE: Size: 6.1 x 2.2 x 2.2 cm Echogenicity: Heterogeneous Vascularity: Normal. Nodules: solid isoechoic nodule which is difficult to discern from adjacent tissue. Approximate james urements 1.9 x 1.1 x 1.5 cm. Ill-defined margins no echogenic foci. No significant change in appear ance from prior exam. Additional tiny cysts. LEFT LOBE: Size: 5.4 x 1.9 x 2.1 cm Echogenicity: Heterogeneous Vascularity: Normal. Nodules: Multiple tiny cysts. OTHER FINDINGS: None. IMPRESSION: No diffusely heterogeneous thyroid gland. No significant change in nodule at lower pole right lobe. TR 3. DATA REPOSITORY:
== END ==
PROVIDERS: PCP Nurse Practitioner Family; Visit Provider Nurse Practitioner Family
DX: E04.2 Nontoxic multinodular goiter (principal)
CPT/HCPCS: 76536

== ENCOUNTER → 2023-12-08 10:44 | Outpatient (BNVA) | payer MEDICARE, BC, SELFPAY | PROVIDERS: PCP Nurse Practitioner Family; Referring Provider Nurse Practitioner Family; Visit Provider Psychiatry & Neurology Neurology | DX: R25.1 Tremor, unspecified (principal); R41.0 Disorientation, unspecified; R48.2 Apraxia | CPT/HCPCS: 99213 ==

== ENCOUNTER 2024-02-03 08:57 | Outpatient (CLI) | payer MEDICARE, BC, SELFPAY ==
[2024-02-03 08:31] LABS: ALT 46 U/L (14-59); AST 25 U/L (15-37); Albumin 3.7 g/dL (3.4-5.0); Alkaline Phosphatase 82 U/L (46-116); BUN 14 mg/dL (7-18); Bilirubin, Total 0.5 mg/dL (0.2-1.0); CREATININE 1.3 mg/dL (0.55-1.02); Calcium 10.5 mg/dL (8.5-10.1); Chloride 106 mmol/L (98-107); Estimated GFR 48.26 (mL/min/1.73m2); Glucose 117 mg/dL (74-106); Potassium 3.9 mmol/L (3.5-5.1); Sodium 144 mmol/L (136-145); TSH (W/Ref FT4) 1.61 uIU/mL (0.36-3.74)
[2024-02-03 08:50] LABS: Lithium 0.5 mmol/l (0.6-1.2)
== END 2024-02-03 08:58 | disposition home or self-care (01) ==
LOC: LBO 08:58
PROVIDERS: PCP Nurse Practitioner Family; Visit Provider Nurse Practitioner
DX: Z51.81 Encounter for therapeutic drug level monitoring (principal); Z79.899 Other long term (current) drug therapy; F31.89 Other bipolar disorder
CPT/HCPCS: 36415; 80053; 80178; 84443

== ENCOUNTER 2024-04-08 13:32 | Outpatient (REF) | payer MEDICARE, BC, SELFPAY ==
--- NOTE | 2024-04-08 11:50 | PAPFT_PTH ---
PAT[facility]: [facility]ire[facility] Silva [id number]GE[facility]SX: 58/F ROOM: RE04/08/[address]: SANDY GORDON : 1965 BED: DIS: 04/08/2024 SPEC #: [id number] RECD: 04/08/24 13:38 STATUS: AMBER REQ #: [id number] LA: 04/08/24 11:[address]: Sandy Gordon DEPT: [facility] Cytology RECD BY: Elicia Wolff Tissues: 1 - CX/ENDOCX FOR PAP SMEARS Procedures: PAP THIN PREP/UVM Screening Comments: [id number]
[2024-04-08 14:44] LABS: Hemoglobin A1C 5.4 % (<5.7)
[2024-04-08 15:03] LABS: Vitamin D 25 Total 30.9 ng/mL (30-100)
[2024-04-08 15:04] LABS: ALT 40 U/L (14-59); AST 20 U/L (15-37); Alkaline Phosphatase 72 U/L (46-116); Anion Gap 9.5 mmol/L (3-11); BUN 26 mg/dL (7-18); Bilirubin, Total 0.3 mg/dL (0.2-1.0); CO2 27.5 mmol/L (21.0-32.0); CREATININE 1.1 mg/dL (0.55-1.02); Calcium 10.6 mg/dL (8.5-10.1); Calculated LDL 210 mg/dL (<100); Chloride 106 mmol/L (98-107); Cholesterol 337 mg/dL (<200); Estimated GFR 58.97 (mL/min/1.73m2); Glucose 101 mg/dL (74-106); HDL Cholesterol 83 mg/dL (40-60); Potassium 4.1 mmol/L (3.5-5.1); Sodium 143 mmol/L (136-145); Triglyceride 220 mg/dL (<150)
[2024-04-08 19:01] LABS: Lithium 0.4 mmol/L (0.6-1.2)
== END 2024-04-08 13:33 | disposition home or self-care (01) ==
LOC: NCHCN 13:32
PROVIDERS: PCP Nurse Practitioner Family; Visit Provider Nurse Practitioner Family
DX: Z13.1 Encounter for screening for diabetes mellitus (principal); E55.9 Vitamin D deficiency, unspecified; Z12.4 Encounter for screening for malignant neoplasm of cervix
CPT/HCPCS: 80053; 80061; 82306; 88142; 80178; 83036

== ENCOUNTER 2024-10-05 10:45 | Outpatient (REF) | payer MEDICARE, BC, SELFPAY ==
--- OUTSIDE RECORDS SUMMARY | 2024-10-05 10:47 | XMS_ITS | Clinical Summary ---
Author Organization [facility] Address [facility] [place] [address] Care Team Providers Care Piercing Specialist Name Role Phone Unavailable Primary Care Provider Unavailabl e Allergies No known active allergies Medications Medication Sig Dispensed Refills Start Date End Date Status pseudoephedrine (SUDAFED) 30 mg tablet Take 30 mg by mouth every 4 hours as needed. Reported on 03/23/2017 Active cetirizine (ZYRTEC) 10 mg tabletIndications:se asonal allergic rhinitis Take 10 mg by mouth daily. Reported on 03/23/2017 Indications: Seasonal Allergic Rhinitis Active gabapentin (Neurontin) 300 mg Capsule Take 600 mg by mouth nightly. Active ferrous sulfate 324 mg (65 mg iron) Tablet, Delayed Release (E.C.) Take 324 mg by mouth. Active mirtazapine (Remeron) 15 mg tablet TAKE ONE TABLET BY MOUTH EVERY EVENING 30 tablet 3 07/13/2024 Active lithium CR (Eskalith) 450 mg ER tablet TAKE ONE TABLET BY MOUTH EVERY NIGHT 90 tablet 3 09/05/2024 Active LORazepam (Ativan) 0.5 mg tablet Take 1 tablet by mouth daily as needed for Anxiety. For high anxiety/panic. Do not mix with alcohol. 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 . Monitoring. Uses eye pads High risk medication use 02/26/2015 Bipolar disorder 07/17/2011 Thyroid cyst 03/19/2011 Encounters Date Type Department Care Team Description 10/01/2024 Refill Psychiatry [place] [address] Laura Joseph, ASSISTANT STORE DIRECTOR 09/29/2024 Refill Psychiatry [place] [address] Isaura García, ASSISTANT STORE DIRECTOR 09/02/2024 Refill Psychiatry [place] [address] Laura Joseph, ASSISTANT STORE DIRECTOR 08/31/2024 9:00 AM EDT Office Visit Psychiatry and Behavioral Health [place] [place] [address] Isaura García, ASSISTANT STORE DIRECTOR Bipolar affective disorder, currently depressed, moderate 08/31/2024 Travel 08/29/2024 Travel 08/08/2024 Refill Psychiatry [place] [address] Laura Joseph, ASSISTANT STORE DIRECTOR 07/28/2024 Refill Psychiatry and Behavioral Health [place] [address] Laura Joseph, ASSISTANT STORE DIRECTOR 07/20/2024 Refill Psychiatry [place] [address] Laura Joseph, ASSISTANT STORE DIRECTOR 07/11/2024 Refill Psychiatry [place] [address] Laura Joseph, ASSISTANT STORE DIRECTOR from Last 3 Months Immunizations Name Administration Dates Next Due Influenza PF, Split 09/24/2015 Influenza Vaccine, Whole 08/21/2009,10/09/2008 Family History Medical History Relation Comments Alcohol Use Disorder Brother Bipolar Disorder Brother not formally di agnosed Anxiety Disorder Father Mental Illness Paternal Grandmother Relation Status Comments Brother Father Paternal Grandmother Social History Tobacco Use Types Packs/Day Years Used Date Smoking Tobacco: Never Smokeless Tobacco: Never Alcohol Use Standard Drinks/Week Comments No 0 (1 standard drink = 0.6 oz pur e alcohol) Sex and Gender Information Value Date Recorded Sex Assigned at Female 02/11/2021 8:25 PM EDT Gender Identity Not on file Sexual Orientation Straight 02/11/2021 8: 25 PM EDT Last Filed Vital Signs Vital Sign Reading Time Taken Comments Blood Pressure 154/88 12/03/2022 12:00 PM EST Pulse 59 12/03/2022 12:00 PM EST Temperature - - Respiratory Rate 18 06/27/2019 1:41 PM EDT Oxygen Saturation - - Inhaled Oxygen Concentration - - Weight 68 kg (150 lb) 06/27/2019 1:41 PM EDT Height 167.6 cm (5' 5.98) 06/27/2019 1:41 PM ED T Body Mass Index 24.22 06/27/2019 1:41 PM EDT Plan of Treatment Upcoming Encounters Date Type Department Care Team (Late st Contact Info) Description 11/09/2024 11:30 AM EST TH Visit (TeleHealth) Psychiatry [place] [address] Isaura García APRN [facility] [place] [address] Health Maintenance Due Date Last Done Comments CT Colonography 1965 Colonoscopy 1965 Colorectal Cancer Screening 1965 FIT DNA 1965 FIT 1965 Sigmoidoscopy (10 year) with FIT yearly 1965 Sigmoidoscopy 1965 HIV screen 1985 Hepatitis C Screening 1985 Hepatitis B vaccine (0-59 yrs) (1) 1986 Tetanus/Diphtheria/Pertussis Vaccines (1 - Tdap) 1986 HPV test 1997 PAP Smear 1997 Breast Cancer Share Decision Needed 2007 Breast Cancer screening 2007 Zoster vaccine (1 of 2) 2017 Advance Directive 2022 Covid-19 Vaccine ( season) 2024 Influenza (Flu) vaccine (1 o f 1 - Influenza standard series) 07/31/2024 09/24/2015, 08/21/2009, 10/09/2008
--- OUTSIDE RECORDS SUMMARY | 2024-10-05 10:47 | XMS_ITS | Encounter Summary ---
Author Organization [facility] [place] [address] Care Team Providers Care Model Set Artist Name Role Phone Unavailable Primary Care Provider Unavailabl e Encounter Details Date Type Department Care Team (Late st Contact Info) Description 08/31/2024 9:00 AM EDT Office Visit Psychiatry [place] [address] Brenden García APRN [facility] [place] [address] Bipolar affective disorder, currently depressed, moderate Social History Tobacco Use Types Packs/Day Years Used Date Smoking Tobacco: Never Smokeless Tobacco: Never Alcohol Use Standard Drinks/Week Comments No 0 (1 standard drink = 0.6 oz pur e alcohol) Sex and Gender Information Value Date Recorded Sex Assigned at Female 02/11/2021 8:25 PM EDT Gender Identity Not on file Sexual Orientation Straight 02/11/2021 8: 25 PM EDT documented as of this encounter Progress Notes * Brenden García APRN - 08/31/2024 9:00 AM EDT ESTABLISHED ADULT PATIENT OFFICE VISIT NOTE Time Spent: 30 minutes Attendee(s): ShireenLaura Angela PMHNP Identifying information: Shireen Silva is a 59 y.o. female with history of Bipolar I disorder. Shetransferred from [place] Joseph APRN. She is here for transfer of care Chief Complaint: I was really stressed out about driving here History of Present Illness: (03/28/24) (Quality, Severity, Duration, Timing, Context, Modifying factors, Associated S&S) Psychiatric Symptoms: There are some stressors in my personal life Aging father in senior living - aging mother visits daily. 24yo son lost his job, now living at home.(Both sons at home) Makes it difficult, wants to drink, but working at not overdoing that. Down to 2 glasses at night only (not during day). Been trying things like using a smaller glass and adding ice. Difficulty falling asleep. Out of ativan (last prescribed in June, for 15 tabs only). Doesn't need to get up early most mornings, so sometimes lets her self stay up later. Feels rested in the mornings. Does crafting and chores. Getting things done. Reports medications are helpful. Uses ativan 1-2 times a week for sleep Health Changes: Reviewed labs from 04/08/24-IN MEDIA. Very happy to see GFR is up (59 from 48). Taking B12, vitamin, Vitamin D Work/Life/Family Updates: Mother and sister live in [place] and have a supportive relationship. Cousin moving near Shireen's mom ivette and Shireen feels good about that (to help with mom if needed) Dad continues in senior living. Son (Chester) works at [employer] and switching from turkey farmer to day shift Subhsah completed alcohol rehab at [facility] and now working son (Maycol) stays with father in law in [place]-not currently working Friends: Malick and Kymberly trying to get together more [employer]-very excited about sense of community Substance Use: Varies but has been cutting using smaller glasses and trying to add more ice Safety: denies SI, denies HI. Denies SIB. Pertinent Medication Side Effects: denied Questionnaires: PHQ9 Questionnaires Data (Clinic and Pt Entered): last 4 values 02/08/2024 1:01 PM 03/26/2024 2:35 AM 05/23/2024 9:59 AM 08/29/2024 9:43 AM PHQ-9: Last 4 Responses PHQ - 9 Score 5 (Mild Depression) 3 (Minimal Depression) 4 (Minimal Depression) 6 (Mild Depression) PHQ - 9 Score (Pt Questionnaire) 5 (Mild Depression) 3 (Minimal Depression) 4 (Minimal Depression) 6 (Mild Depression) Little interest or pleasure Several Days Not at all Several Days Several Days Little interest or pleasure (Pt Questionnaire) Several Days Not at all Several Days Several Days Down, depressed, hopeless Several Days Several Days Several Days Several Days Down, depressed, hopeless (Pt Questionnaire) Several Days Several Days Several Days Several Days Trouble sleeping Several days Several days Not at all Several days Trouble sleeping (Pt Questionnaire) Several days Several days Not at all Several days Tired or no energy Several Days Not at all Several Days Several Days Tired or no energy (Pt Questionnaire) Several Days Not at all Several Days Several Days Poor appetite or overeating Not at all Not at all Not at all Not at all Poor appetite or overeating (Pt Questionnaire) Not at all Not at all Not at all Not at all Feeling like a failure Several Days Several Days Several Days Several Days Feeling like a failure (Pt Questionnaire) Several Days Several Days Several Days Several Days Trouble concentrating Not at all Not at all Not at all Several Days Trouble concentrating (Pt Questionnaire) Not at all Not at all Not at all Several Days Moving or speaking slowly Not at all Not at all Not at all Not at all Moving or speaking slowly (Pt Questionnaire) Not at all Not at all Not at all Not at all Would be better off Not at all Not at all Not at all Not at all Would be better off (Pt Questionnaire) Not at all Not at all Not at all Not at all GAD7 Questionnaires Data: last 4 values 02/08/2024 1:01 PM 03/26/2024 2:35 AM 05/23/2024 9:59 AM 08/29/2024 9:43 AM MALVIN-7 Responses GAD7 Total Score (Range 0-21) 0 (No Anxiety) 4 (Minimal Anxiety) 3 (Minimal Anxiety) 3 (Minimal Anxiety) MALVIN-7 Score 0 4 3 3 MALVIN-7 Score (Pt Questionnaire) 0 (No Anxiety) 4 (Minimal Anxiety) 3 (Minimal Anxiety) 3 (Minimal Anxiety) Nervous, anxious Not at all Several days Several days Several days Unable to stop worrying Not at all Several days Several days Several days Worrying about different things Not at all Several days Several days Several days Trouble relaxing Not at all Several days Not at all Not at all Restless Not at all Not at all Not at all Not at all Easily annoyed, irritable Not at all Not at all Not at all Not at all Afraid something awful will happen Not at all Not at all Not at all Not at all Current Medications: Current Outpatient Medications Medication Sig Dispense Refill LORazepam (Ativan) 0.5 mg tablet Take 1 tablet by mouth daily as needed for Anxiety. For high anxiety/panic. Do not mix with alcohol. 10 tablet 0 lithium CR (Lithobid) 300 mg ER tablet Take 1 tablet by mouth 2 times daily. mirtazapine (Remeron) 15 mg tablet TAKE ONE TABLET BY MOUTH EVERY EVENING 30 tablet 3 FLUoxetine (PROzac) 40 mg capsule Take 1 capsule by mouth daily. 30 capsule 3 ferrous sulfate 324 mg (65 mg iron) Tablet, Delayed Release (E.C.) Take 324 mg by mouth. gabapentin (Neurontin) 300 mg Capsule Take 600 mg by mouth nightly. cetirizine (ZYRTEC) 10 mg tablet Take 10 mg by mouth daily. Reported on 03/23/2017 Indications: Seasonal Allergic Rhinitis pseudoephedrine (SUDAFED) 30 mg tablet Take 30 mg by mouth every 4 hours as needed. Reported on 03/23/2017 Review of Systems: CONST no fever GI denied NEURO no headache, no numbness, no tremors, no weakness and no seizures PSYCH See above / control n/a Allergies Reviewed on eD-H Past Psychiatric history and treatment: Per Dr. Villalobos transfer note 04/14/19 No history of hospitalizations Brief formulation/assessment of patient: ... hx of bipolar disorder with a history of manic episodes (however never hospitalization), with mood more recently being predominately depressed. She has along history of being followed on this clinic and has been on lithium for many years. She has a history of cutting, and reports she had started to cut more in the Spring of 2018. She lives with her and has three sons. Prior medications trials: Celexa Venlafaxine Fluoxetine Bupropion Risperidone Lattimer (current at 600 mg and 900 mg daily) Oxcarbazepine Clonazepam Lorazepam Zolpidem (current at 5 mg nightly PRN insomnia) Eszopiclone Lurasidone 2016 - felt it made her mood worse Naltrexone-GI side effects Manic symptoms have included: increased energy, grandiosity, fast speech, decreased need for sleep,excessive spending. SIB re-occurred late 2021 (also had increase in alcohol use, depression)-did go to ER. ----- Went to ER 08/31/23 for confusion, falling, general instability. Thought it was due to Librium though ended up having a UTI. In review and further investigation she was Lattimer toxic and we made drastic changes to her lithium dosing (now 300 mg BID). Throughout that time of toxicity (at least 09/14 through 10/02) I was notified by [facility] neurologist about her toxic levels (she had been referred to see this neurologist due to her presentation)-most recent labs 10/05: Creatinine 1.2 Lattimer 1.1 (had been 1.5 on 09/29 and [facility] previously alerted me to a level of 1.8) Shireen is unsure of what caused this leap in lithium levels; does not feel like she was dehydrated (and states she was drinking less alcohol at the time). Social History: She is to Noble of about 30 years. They have 3 sons (23, 27, 29). Her is retired from state [employer]. She is on disability for BPD1. Notes growing up in family that didn't express emotions easily and she finds she internalizes things. Vitals (24hr Range): No data found. Musculoskeletal System: no abnormal movements Mental Status Exam: MENTAL STATUS EXAM: Appearance: The patient appears the stated age. The patient is well-dressed. Well-groomed (neat and clean). Behavior: The patient is cooperative with the interview. Good eye contact. Speech: Speech is within normal limits, characterized by a normal rate, rhythm, volume, and prosody. Normal pitch. Normal volume. Normal rate. Language: The patient speaks fluent Estonian. Mood: comments: I'm doing pretty good! Affect: The patient exhibits a full affect that is within normal limits in terms of mood-congruence, intensity, range, suppleness, and appropriateness to the situation. Affect is mood-congruent. Thought Process: Thought process is within normal limits. It is linear, logical, and appropriately goal-oriented. The patient???s thought process is linear. The patient's thought process is logical. The patient's thought process is goal-oriented. Associations: intact Thought Content: The patient denies or does not express suicidal thoughts. The patient denies having homicidal ideations or thoughts of harming another person(s). Perception: Perception is within normal limits. There is no evidence of current auditory, visual, or tactile hallucinations. Orientation: Fully oriented. The patient is oriented to person. The patient is oriented to place. The patient is oriented to situation. The patient is oriented to time. Attention/Concentration: Attentive, able to resist distraction. Able to sustain focus during the interview. good Cognition: The patient's cognition is grossly intact by interview. Memory: Recent memory is grossly intact. Remote memory is grossly intact. good Fund of Knowledge: The patient's fund of knowledge is within normal limits for age, developmental course, and level ofeducation. good Insight: good Judgment: good Labs: Psychiatry Labs: See uploaded [facility] lab results in MEDIA 04/08/24 Lattimer level 0.4 Calcium 10.6 Creatinine 1.1 est GFR 58.97 (improved from 48) Formulation and Assessment: Diagnosis: Bipolar 1 Disorder, MALVIN, Alcohol Use Disorder CURRENT ASSESSMENT: Shireen Silva is a 59 y.o. female with AUD, BPAD and MALVIN who reports feeling well, both mentally and physically. She denies manic symptoms as well as overt depressive symptoms. Feels that she is stable on current lithium dose and does not want this to change. Discussed likelihood of sub-therapeutic lithium and symptoms to watch for Discussed sleep, alcohol and ativan. Reviewed effect of alcohol on sleep quality and discussed the contraindication of using any ativan when drinking. Discussed additional strategies to continue to reduce alcohol intake, as she is not motivated to stop altogether. Safety Assessment: Shireen Silva denies suicidal ideation and denies homicidal ideation. Protective factors include: Supportive and involved family; goal oriented and active with her hobbies including yoga, walking, crafts. We carefully reviewed office and emergency contact info and when to contact our crisis line at . PLAN: Medications instructions below: Continue Lattimer ER 450 mg (mood stability) Prozac 40 mg qd (anxiety, depression) mirtazapine 7.5 mg Q HS (sleep) Ativan 0.5 mg PRN for panic, high anxiety symptoms Additional treatment recommendations: Monitor sleep pattern, Reduce alcohol intake. Encouraged importance of hydration and water intake and follow up with PCP. Patient Instruction/Education provided: Patient provided verbal instructions regarding medication side effects, safety plan in case of feeling unsafe. Patient understands the plan? Yes BRENDEN GARCÍA APRN documented in this encounter Plan of Treatment Upcoming Encounters Date Type Department Care Team (Late st Contact Info) Description 11/09/2024 11:30 AM EST TH Visit (TeleHealth) Psychiatry [place] [address] Brenden García APRN [facility] [place] [address] documented as of this encounter Visit Diagnoses Diagnosis Bipolar affective disorder, currently depressed, moderate Bipolar I disorder, most recent episode (or current) depressed, moderate documented in this encounter
--- OUTSIDE RECORDS SUMMARY | 2024-10-05 10:47 | XMS_ITS | Encounter Summary ---
Author Organization [facility] [place] [address] Care Team Providers Care Bunch Breaker Machine Operator Name Role Phone Unavailable Primary Care Provider Unavailabl e Reason for Visit * Reason Comments Medication Refill Encounter Details Date Type Department Care Team (Late st Contact Info) Description 09/02/2024 Refill Psychiatry [place] [address] Laura Joseph APRN [facility] [place] [address] Social History Tobacco Use Types Packs/Day Years [...] documented as of this encounter Miscellaneous Notes * Telephone Encounter - Ly Evans CMA - 09/02/2024 8:11 AM EDT Prescription Renewal Request Name: Shireen Silva : 1965 Prescription(s) Requested: Requested Prescriptions Pending Prescriptions Disp Refills lithium CR (Eskalith) 450 mg ER tablet [Pharmacy Med Name: LITHIUM CARBONATE ER 450 MG TB] 30 tablet 0 Sig: TAKE ONE TABLET BY MOUTH EVERY NIGHT Date of Encounter last in This Dept (If need an appointment send to secretaries to schedule): Isaura García APRN Psychiatry, 08/31/24, NOTE STILL OPEN Next Encounter in This Dept: Visit date not found Date of Last Refill (for each medication): LITHIUM CARBONATE ER 450 MG TB Sig: take one tablet by mouth every night Dispensed: 08/10/2024 12:00 AM Unit strength: 450 mg Days supply: 30 Quantity: 30 each Refills remainin Medication category requirements (labs etc): Lab Results Component Value Date LITHIUM 0.89 04/07/2019 NA 142 04/07/2019 BUN 21 (H) 04/07/2019 CREATININE 0.83 04/07/2019 TSH 1.74 04/07/2019 WBC 7.4 07/26/2018 CALCIUM 10.4 04/07/2019 Status of request: Pended No Known Allergies Ly Evans CMA 09/02/24 8:11 AM documented in this encounter Plan of Treatment Upcoming Encounters Date Type Department Care Team (Late st Contact Info) Description 11/09/2024 11:30 AM EST TH Visit (TeleHealth) Psychiatry [place] [phone] Isaura García APRN [facility] [place] [address] documented as of this encounter Visit Diagnoses Not on filedocumented in this encounter
--- OUTSIDE RECORDS SUMMARY | 2024-10-05 10:47 | XMS_ITS | Encounter Summary ---
Author Organization [facility] [place] [address] Care Team Providers Care Operations Specialist Name Role Phone Unavailable Primary Care Provider Unavailabl e Reason for Visit * Reason Comments Medication Refill Encounter Details Date Type Department Care Team (Late st Contact Info) Description 10/01/2024 Refill Psychiatry [place] [address] Laura Joseph APRN [facility] [place] [address] Social History Tobacco Use Types Packs/Day Years [...] Telephone Encounter - Ly Evans CMA - 10/03/2024 1:55 PM EST Prescription Renewal Request Name: Shireen iSlva : 1965 Prescription(s) Requested: Requested Prescriptions Pending Prescriptions Disp Refills FLUoxetine (PROzac) 40 mg capsule [Pharmacy Med Name: FLUOXETINE HCL 40 MG CAPSULE] 30 capsule 1 Sig: TAKE ONE CAPSULE BY MOUTH EVERY DAY Date of Encounter last in This Dept (If need an appointment send to secretaries to schedule): Isaura García APRN (Nurse Practitioner) Psychiatry Encounter Date: 08/31/2024 Signed Next Encounter in This Dept: 11/09/2024 Date of Last Refill (for each medication): FLUOXETINE HCL 40 MG CAPSULE Sig: take one capsule by mouth every day Dispensed: 09/05/2024 12:00 AM Unit strength: 40 mg Unit form: capsule,IR -extend rel,biphase Days supply: 30 Quantity: 30 each Refills remainin Pharmacy: [id number] Medication category requirements (labs etc): Labs not required per protocol Status of request: Pended No Known Allergies Ly Evans CMA 10/03/24 1:55 PM documented in this encounter Plan of Treatment Upcoming Encounters Date Type Department Care Team (Late st Contact Info) Description 11/09/2024 11:30 AM EST TH Visit (TeleHealth) Psychiatry [place] [phone] Isaura García APRN [facility] [address] documented as of this encounter Visit Diagnoses Not on filedocumented in this encounter
--- OUTSIDE RECORDS SUMMARY | 2024-10-05 10:47 | XMS_ITS | Encounter Summary ---
Author Organization [facility] [place] [address] Care Team Providers Care Elastic Attacher Overlock Name Role Phone Virginie Gudino DANNA Primary Care Provider [phone] Reason for Visit * Reason Onset Date Comments Medication Refill 06/20/2024 Encounter Details Date Type Department Care Team (Late st Contact Info) Description 06/20/2024 Refill Psychiatry [place] [phone] Laura Joseph [facility] [place] [address] Social History Tobacco Use Types Packs/Day Years [...] Visit (TeleHealth) Psychiatry [place] [phone] Isaura García [facility] [place] [address] documented as of this encounter Visit Diagnoses Not on filedocumented in this encounter Care Teams Elastic Attacher Overlock Relationship Specialty Start Date End Date Virginie Gudino, SUPERVISOR BRAKE [employer]PA[employer] [address] [place] [address] PCP - General Family Medicine 06/16/18 07/31/24 documented as of this encounter
--- OUTSIDE RECORDS SUMMARY | 2024-10-05 10:47 | XMS_ITS | Encounter Summary ---
Author Organization [facility] [place] [address] Care Team Providers Care White Hat Hacker Name Role Phone Unavailable Primary Care Provider Unavailabl e Encounter Details Date Type Department Care Team (Latest Contact Info) Description 08/31/2024 Travel Social History Tobacco Use Types Packs/Day Years [...] Visit (TeleHealth) Psychiatry [place] [address] Isaura García APRN [facility] [place] [address] documented as of this encounter Visit Diagnoses Not on filedocumented in this encounter
--- OUTSIDE RECORDS SUMMARY | 2024-10-05 10:47 | XMS_ITS | Encounter Summary ---
Author Organization [facility] [place] [address] Care Team Providers Care Professor Of Religious Studies Name Role Phone Unavailable Primary Care Provider Unavailabl e Encounter Details Date Type Department Care Team (Latest Contact Info) Description 08/29/2024 Travel Social History Tobacco Use Types Packs/Day [...] Visit (TeleHealth) Psychiatry [place] [address] Isaura García APRN [facility] [address] documented as of this encounter Visit Diagnoses Not on filedocumented in this encounter
--- OUTSIDE RECORDS SUMMARY | 2024-10-05 10:47 | XMS_ITS | Encounter Summary ---
Author Organization Formerly [facility] [place] [address] Care Team Providers Care Supervisor Paste Plant Name Role Phone Unavailable Primary Care Provider Unavailabl e Reason for Visit * Reason Onset Date Comments Medication Refill 09/29/2024 Encounter Details Date Type Department Care Team (Late st Contact Info) Description 09/29/2024 Refill Psychiatry [place] [phone] Isaura García [facility] [place] [address] Social History Tobacco Use Types Packs/Day Years [...] Visit (TeleHealth) Psychiatry [place] [phone] Isaura García [facility] [place] [address] documented as of this encounter Visit Diagnoses Not on filedocumented in this encounter
--- OUTSIDE RECORDS SUMMARY | 2024-10-05 10:47 | XMS_ITS | Encounter Summary ---
Author Organization [facility] [place] [address] Care Team Providers Care Test Hole Driller Name Role Phone MariettaVirginie ventura DANNA Primary Care Provider [phone] Reason for Visit * Reason Comments Medication Refill Encounter Details Date Type Department Care Team (Late st Contact Info) Description 07/11/2024 Refill Psychiatry [place] [address] Laura Joseph ALMOND CUTTING MACHINE TENDER [facility] [place] [address] Social History Tobacco Use Types Packs/Day Years [...] Telephone Encounter - Ly Evans CMA - 07/12/2024 9:58 AM EDT Prescription Renewal Request Name: Shireen Silva : 1965 Prescription(s) Requested: Requested Prescriptions Pending Prescriptions Disp Refills mirtazapine (Remeron) 15 mg tablet [Pharmacy Med Name: MIRTAZAPINE 15 MG TABLET] 30 tablet 3 Sig: TAKE ONE TABLET BY MOUTH EVERY EVENING Date of Encounter last in This Dept (If need an appointment send to secretaries to schedule): Laura Joseph APRN (Nurse Practitioner) Psychiatry Encounter Date: 05/30/2024 Signed Next Encounter in This Dept: 07/27/2024 Date of Last Refill (for each medication): MIRTAZAPINE 15 MG TABLET Sig: take one tablet by mouth every evening Dispensed: 04/30/2024 12:00 AM Unit strength: 15 mg Unit form: tablet with sensor Days supply: 30 Quantity: 30 each Refills remainin Medication category requirements (labs etc): Labs not required per protocol Status of request: Pended No Known Allergies Ly Evans CMA 07/12/24 9:58 AM documented in this encounter Plan of Treatment Upcoming Encounters Date Type Department Care Team (Late st Contact Info) Description 11/09/2024 11:30 AM EST TH Visit (TeleHealth) Psychiatry [place] [address] Isaura García APRN [facility] [place] [address] documented as of this encounter Visit Diagnoses Not on filedocumented in this encounter Care Teams Test Hole Driller Relationship Specialty Start Date End Date Virginie Gudino APRN [address] [place] [address] PCP - General Family Medicine 06/16/18 07/31/24 documented as of this encounter
--- OUTSIDE RECORDS SUMMARY | 2024-10-05 10:47 | XMS_ITS | Encounter Summary ---
Author Organization [facility] [place] [address] Care Team Providers Care Curtain Mender Name Role Phone MariettaVirginie ventura DANNA Primary Care Provider [phone] Reason for Visit * Reason Comments Medication Refill Encounter Details Date Type Department Care Team (Late st Contact Info) Description 05/22/2024 Refill Psychiatry [place] [address] Laura Joseph FIRE SUPERVISOR [facility] [place] [address] Social History Tobacco Use Types Packs/Day Years [...] Telephone Encounter - Ly Evans CMA - 05/23/2024 1:18 PM EDT Prescription Renewal Request Name: Shireen Silva : 1965 Prescription(s) Requested: Requested Prescriptions Pending Prescriptions Disp Refills mirtazapine (Remeron) 15 mg tablet [Pharmacy Med Name: MIRTAZAPINE 15 MG TABLET] 30 tablet 3 Sig: TAKE ONE TABLET BY MOUTH EVERY EVENING Date of Encounter last in This Dept (If need an appointment send to secretaries to schedule): Barbara Ramos (Nurse Practitioner Student) Psychiatry Encounter Date: 03/28/2024 Tele-Health Visit Next Encounter in This Dept: 05/30/2024 Date of Last Refill (for each medication): 04/30/2024 -- 0 Medication category requirements (labs etc): Labs not required per protocol Status of request: Not pended, message sent to Provider Per last note on 03/28/2024: Decrease mirtazapine dose from 15 mg down to 7.5 mg Q HS to assist with improvement in sleep. No Known Allergies Ly Evans CMA 05/23/24 1:18 PM documented in this encounter Plan of Treatment Upcoming Encounters Date Type Department Care Team (Late st Contact Info) Description 11/09/2024 11:30 AM EST TH Visit (TeleHealth) Psychiatry [place] [address] Isaura García APRN [facility] [place] [address] documented as of this encounter Visit Diagnoses Not on filedocumented in this encounter Care Teams Curtain Mender Relationship Specialty Start Date End Date Virginie Gudino APRN [address] [place] [address] PCP - General Family Medicine 06/16/18 07/31/24 documented as of this encounter
--- OUTSIDE RECORDS SUMMARY | 2024-10-05 10:47 | XMS_ITS | Encounter Summary ---
Author Organization [place] [address] Care Team Providers Care Office Helper Clerical Name Role Phone Virginie Gudino DANNA Primary Care Provider [phone] Reason for Visit * Reason Onset Date Comments Medication Refill 05/21/2024 Encounter Details Date Type Department Care Team (Late st Contact Info) Description 05/21/2024 Refill Psychiatry [place] [phone] Laura Joseph [facility] [place] [address] Social History Tobacco Use Types Packs/Day Years [...] Visit (TeleHealth) Psychiatry [place] [address] Isaura García [facility] [place] [address] documented as of this encounter Visit Diagnoses Not on filedocumented in this encounter Care Teams Office Helper Clerical Relationship Specialty Start Date End Date Virginie Gudino, MILLWRIGHT [address] [place] [address] PCP - General Family Medicine 06/16/18 07/31/24 documented as of this encounter
--- OUTSIDE RECORDS SUMMARY | 2024-10-05 10:47 | XMS_ITS | Encounter Summary ---
Author Organization [facility] [place] [address] Care Team Providers Care Speech Pathology Teacher Name Role Phone MariettaVirginie ventura DANNA Primary Care Provider [phone] Encounter Details Date Type Department Care Team (Late st Contact Info) Description 05/30/2024 10:30 AM EDT TH Visit (TeleHealth) Psychiatry [place] [address] Laura Joseph APRN [facility] [place] [address] Bipolar disorder, in partial remission, most recent episode depressed (Primary Dx); Long-term current use of lithium; *Moderate alcohol use disorder Social History Tobacco Use Types Packs/Day Years [...] as of this encounter Progress Notes * Laura Joseph APRN - 05/30/2024 10:30 AM EDT ESTABLISHED ADULT PATIENT OFFICE VISIT NOTE Shireen Silva gave permission for and was seen for today's appointment with a Video Office Visit. During this visit they were located in [place]. Shireen Ricardo is aware that for any urgent matter they can call [phone]. Time Spent: 30 minutes Attendee(s): Shireen Silva, [facility] Joseph, [facility] Identifying information: Shirene Silva is a 59 y.o. female with history of Bipolar I disorder. Shetransferred to [facility] APRN from Dr. Villalobos March 2020. She is here for ongoing follow up. Chief Complaint: here for follow up History of Present Illness: (03/28/24) (Quality, Severity, Duration, Timing, Context, Modifying factors, Associated S&S) Psychiatric Symptoms: I need to work on my drinking a little bit, but otherwise I am okay. Sleep is improved-taking melatonin-falling asleep overall faster and feels maybe sleeping a bit better. We had also dropped mirtazepine dose, so may be contributing Anxiety a bit higher-some family stress (brother seems to be causing stress with mom; he lives in [place])-increasing anxiety and Ativan use (still intermittent use). Gardening, reading, some crafting. Attending a new pentecostalism-had been thinking about going and did it.Episcopalian-have met a few great people. Has done a sing-a-long there and feels really connected. Feels comfortable there and has since she started. Hesham had completed rehab and is overall doing well. Mood has been stable, no major ups or downs. Health Changes: Reviewed labs from 04/08/24-IN MEDIA. Very happy to see GFR is up (59 from 48). Taking B12, vitamin, Vitamin D Work/Life/Family Updates: Mother and sister live in [place] and have a supportive relationship. Cousin moving near Shireen's mom [place]sum[place] and Shireen feels good about that (to help with mom if needed) Dad continues in retirement. Son (Chester) works at [employer] and switching from machinist 2nd shift to day shift Subhash completed alcohol rehab at [facility] [place] and now working son (Maycol) stays with father in law in [place]-not currently working Friends: Malick and Kymberly trying to get together more New pentecostalism-very excited about sense of community Substance Use: Varies but has been cutting it half by buying Alcohol free wine and mixing it half and half with a Ramya Safety: denies SI, denies HI. Denies SIB. Pertinent Medication Side Effects: denied Questionnaires: PHQ9 Questionnaires Data (Clinic and Pt Entered): last 4 values 12/07/2023 9:47 AM 02/08/2024 1:01 PM 03/26/2024 2:35 AM 05/23/2024 9:59 AM PHQ-9: Last 4 Responses PHQ - 9 Score 5 (Mild Depression) 5 (Mild Depression) 3 (Minimal Depression) 4 (Minimal Depression) PHQ - 9 Score (Pt Questionnaire) 5 (Mild Depression) 5 (Mild Depression) 3 (Minimal Depression) 4 (Minimal Depression) Little interest or pleasure Several Days Several Days Not at all Several Days Little interest or pleasure (Pt Questionnaire) Several Days Several Days Not at all Several Days Down, depressed, hopeless Several Days Several Days Several Days Several Days Down, depressed, hopeless (Pt Questionnaire) Several Days Several Days Several Days Several Days Trouble sleeping Several days Several days Several days Not at all Trouble sleeping (Pt Questionnaire) Several days Several days Several days Not at all Tired or no energy Several Days Several Days Not at all Several Days Tired or no energy (Pt Questionnaire) Several Days Several Days Not at all Several Days Poor appetite or overeating Not [...] all Not at all Not at all Trouble concentrating (Pt Questionnaire) Not at all [...] all GAD7 Questionnaires Data: last 4 values 12/07/2023 9:47 AM 02/08/2024 1:01 PM 03/26/2024 2:35 AM 05/23/2024 9:59 AM MALVIN-7 Responses GAD7 Total Score (Range 0-21) 0 (No Anxiety) 4 (Minimal Anxiety) 3 (Minimal Anxiety) MALVIN-7 Score 3 0 4 3 MALVIN-7 Score (Pt Questionnaire) 3 (Minimal Anxiety) 0 (No Anxiety) 4 (Minimal Anxiety) 3 (Minimal Anxiety) Nervous, anxious Several days Not at all Several days Several days Unable to stop worrying Several days Not at all Several days Several days Worrying about different things Not at all Not at all Several days Several days Trouble relaxing Not at all Not at all Several days Not at all Restless Not at all Not at all Not at all Not at all Easily annoyed, irritable Several days Not at all Not at [...] medications trials: Celexa Venlafaxine Fluoxetine Bupropion Risperidone Muskego (current at 600 mg and 900 mg [...] In review and further investigation she was Muskego toxic and we made drastic changes to her lithium dosing (now 300 mg BID). Throughout that time of toxicity (at least 09/14 through 10/02) I was notified by [facility] neurologist about her toxic levels (she had been referred to see this neurologist due to her presentation)-most recent labs 10/05: Creatinine 1.2 Muskego 1.1 (had been 1.5 on 09/29 and [facility] previously alerted me to [...] Normal rate. Language: The patient speaks fluent Sami. Mood: comments: I'm doing pretty good! Affect: [...] Judgment: good Labs: Psychiatry Labs: See uploaded [facility] lab results in MEDIA 04/08/24 Muskego level 0.4 Calcium 10.6 Creatinine 1.1 est GFR 58.97 (improved from 48) Formulation and Assessment: Diagnosis: Bipolar 1 Disorder, MALVIN, Alcohol Use Disorder CURRENT ASSESSMENT: Shireen Silva is a 59 y.o. female with AUD, BPAD and MALVIN who reports feeling well, both mentally and physically. She denies manic symptoms as well as overt depressive symptoms. We reviewed recent labs (in media) and note that there's been positive change in kidney function, likely with the change in lithium dosing. Shireen is pleased with her progress, as am I, in terms of decreasing a bit of psychotropic medication burden as well as improved mood and functioning. She plans tocontinue decreasing her alcohol intake and has made improvements in that area since we began working together 3 years ago. She is aware her next appointment with be with Nicolasa García APRN for continuation of care. Safety Assessment: Shireen Silva denies suicidal ideation and denies homicidal ideation. Protective factors include: Supportive and involved family; goal oriented and active with her hobbies including yoga, walking, crafts. We carefully reviewed office and emergency contact info and when to contact our crisis line at . PLAN: Medications instructions below: Continue Muskego ER 450 mg (mood stability) Prozac 40 [...] feeling unsafe. Patient understands the plan? Yes Laura Joseph APRN documented in this encounter Plan of Treatment Upcoming Encounters Date Type Department Care Team (Late st Contact Info) Description 11/09/2024 11:30 AM EST TH Visit (TeleHealth) Psychiatry [place] [address] Isaura García APRN [facility] [place] [address] documented as of this encounter Visit Diagnoses Diagnosis Bipolar disorder, in partial remission, most recent episode depressed- Primary Bipolar I disorder, most recent episode (or current) depressed, in partial or unspecified remission Long-term current use of lithium *Moderate alcohol use disorder documented in this encounter Care Teams Speech Pathology Teacher Relationship Specialty Start Date End Date Virginie Gudino APRN [address] [place] [address] PCP - General Family Medicine 06/16/18 07/31/24 documented as of this encounter
--- OUTSIDE RECORDS SUMMARY | 2024-10-05 10:47 | XMS_ITS | Encounter Summary ---
Author Organization [facility] [place] [address] Care Team Providers Care Sponsorship Manager Name Role Phone Virginie Gudino DANNA Primary Care Provider [phone] Reason for Visit * Reason Onset Date Comments Medication Refill 07/20/2024 Encounter Details Date Type Department Care Team (Late st Contact Info) Description 07/20/2024 Refill Psychiatry [place] [address] Laura Joseph [facility] DR [place] [address] Social History Tobacco Use Types Packs/Day Years [...] Visit (TeleHealth) Psychiatry [place] [address] Isaura García [facility] DR [place] [address] documented as of this encounter Visit Diagnoses Not on filedocumented in this encounter Care Teams Sponsorship Manager Relationship Specialty Start Date End Date Virginie Gudino, TOP DYEING MACHINE LOADER [address] [place] [address] PCP - General Family Medicine 06/16/18 07/31/24 documented as of this encounter
--- OUTSIDE RECORDS SUMMARY | 2024-10-05 10:47 | XMS_ITS | Encounter Summary ---
Author Organization [facility] [place] [address] Care Team Providers Care Bookkeeping Machine Operator Name Role Phone Virginie Gudino DANNA Primary Care Provider [phone] Reason for Visit * Reason Comments Medication Refill Encounter Details Date Type Department Care Team (Late st Contact Info) Description 07/28/2024 Refill Psychiatry [place] [address] Laura Joseph HERBICIDE SERVICE SALES REPRESENTATIVE [facility] [place] [address] Social History Tobacco Use Types Packs/Day Years [...] Telephone Encounter - Ly Evans CMA - 07/29/2024 7:53 AM EDT Prescription Renewal Request Name: Shireen Silva : 1965 Prescription(s) Requested: Requested Prescriptions Pending Prescriptions Disp Refills FLUoxetine (PROzac) 40 mg capsule [Pharmacy Med Name: FLUOXETINE HCL 40 MG CAPSULE] 30 capsule 3 Sig: TAKE ONE CAPSULE BY MOUTH EVERY DAY Date of Encounter last in This Dept (If need an appointment send to secretaries to schedule): Laura Joseph APRN (Nurse Practitioner) Psychiatry Encounter Date: 05/30/2024 Signed Next Encounter in This Dept: 08/31/2024 nate García Date of Last Refill (for each medication): FLUOXETINE HCL 40 MG CAPSULE Sig: take one capsule by mouth every day Dispensed: 07/05/2024 12:00 AM Unit strength: 40 mg Unit form: capsule,IR -extend rel,biphase Days supply: 30 Quantity: 30 each Refills remainin Medication category requirements (labs etc): Labs not required per protocol Status of request: Pended No Known Allergies Ly Evans CMA 07/29/24 7:53 AM documented in this encounter Plan of Treatment Upcoming Encounters Date Type Department Care Team (Late st Contact Info) Description 11/09/2024 11:30 AM EST TH Visit (TeleHealth) Psychiatry [place] [address] Isaura García APRN [facility] [place] [address] documented as of this encounter Visit Diagnoses Not on filedocumented in this encounter Care Teams Bookkeeping Machine Operator Relationship Specialty Start Date End Date Virginie Gudino APRN [address] [place] [address] PCP - General Family Medicine 06/16/18 07/31/24 documented as of this encounter
--- OUTSIDE RECORDS SUMMARY | 2024-10-05 10:47 | XMS_ITS | Encounter Summary ---
Author Organization [facility] [place] [address] Care Team Providers Care Salesforce Administrator Name Role Phone Unavailable Primary Care Provider Unavailabl e Reason for Visit * Reason Comments Medication Refill Encounter Details Date Type Department Care Team (Late st Contact Info) Description 08/08/2024 Refill Psychiatry [place] [address] Laura Joseph APRN [facility] [place] [address] Social History Tobacco Use Types Packs/Day Years [...] encounter Miscellaneous Notes * Telephone Encounter - Missy Barba RN - 08/08/2024 4:37 PM EDT Prescription Renewal Request Name: Shireen Silva : 1965 Prescription(s) Requested: Requested Prescriptions Pending Prescriptions Disp Refills lithium CR (Eskalith) 450 mg ER tablet [Pharmacy Med Name: LITHIUM CARBONATE ER 450 MG TB] 90 tablet 1 Sig: TAKE ONE TABLET BY MOUTH NIGHTLY DOSE DECREASED FROM 600MG Date of Encounter last in This Dept (If need an appointment send to secretaries to schedule): Laura Joseph APRN (Nurse Practitioner) Psychiatry Encounter Date: 05/30/2024 Signed Next Encounter in This Dept: 08/31/2024 Date of Last Refill (for each medication): 05/13/2024 #90:0 Medication category requirements (labs etc): n/a Status of request: Pended No Known Allergies Missy Barba RN 08/08/24 4:37 PM documented in this encounter Plan of Treatment Upcoming Encounters Date Type Department Care Team (Late st Contact Info) Description 11/09/2024 11:30 AM EST TH Visit (TeleHealth) Psychiatry [place] [address] Isaura García APRN [facility] [place] [address] documented as of this encounter Visit Diagnoses Not on filedocumented in this encounter
--- OUTSIDE RECORDS SUMMARY | 2024-10-05 10:48 | XMS_ITS | Encounter Summary ---
Author Organization [facility] [place] [address] Care Team Providers Care Human Resources Recruiter Name Role Phone Virginie Gudino DANNA Primary Care Provider Reason for Visit * Reason Comments Medication Refill Encounter Details Date Type Department Care Team (Late st Contact Info) Description 04/20/2023 Refill Psychiatry [place] [phone] Laura Joseph [facility] [place] [address] Social History Tobacco Use Types Packs/Day Years [...] Visit (TeleHealth) Psychiatry [place] [address] Isaura García [facility] [place] [address] documented as of this encounter Visit Diagnoses Not on filedocumented in this encounter Care Teams Human Resources Recruiter Relationship Specialty Start Date End Date Virginie Gudino, TRAY DELIVERY AIDE [address] [place] [address] PCP - General Family Medicine 06/16/18 07/31/24 documented as of this encounter
--- OUTSIDE RECORDS SUMMARY | 2024-10-05 10:48 | XMS_ITS | Encounter Summary ---
Author Organization [facility] [place] [address] Care Team Providers Care Track Mechanic Name Role Phone Virginie Gudino DANNA Primary Care Provider Encounter Details Date Type Department Care Team (Late st Contact Info) Description 05/19/2022 9:00 AM EDT TH Visit (TeleHealth) Psychiatry [place] [phone] Laura Joseph APRN [facility] [place] [address] Bipolar affective disorder, currently depressed, mild (Primary Dx); Alcohol use disorder, mild, abuse Social History Tobacco Use Types Packs/Day Years [...] Progress Notes * Laura Joseph APRN - 05/19/2022 9:00 AM EDT See PMHNP student note * Wendy Collado - 05/19/2022 9:00 AM EDT ESTABLISHED ADULT PATIENT OFFICE VISIT NOTE Shireen Silva gave permission for and was seen for today's appointment with a Video Office Visit. During this visit they were located in [place]. Shireen Silva is aware that for any urgent matter they can call [phone]. Time Spent: 30 minutes Attendee(s): Shireen Silva, Laura Joseph, ZEFERINO, Wendy Collado APRN student. Identifying information: Shireen [...] did try Gustabo's hard lemonade but feels the alcohol content is too low and she was drinking too many. She feels as though she is a bad influence on her son with her alcohol use. Recently signed up for [employer]rystle Sutherland to promote alcohol abstinence.She has noted an increase in her anxiety and panic attacks since she has begun drinking again, I don't know why I do this to myself. Expresses motivation to abstain from alcohol again. The family is planning a trip to [place] this coming May. Mood has been overall good, better Anxiety increased with resumption of alcohol, now having 'panic attacks.' Sleep has been good. Getting ready for outdoor projects-gardening, cleaning out basement; goal is to accomplish at leastone task daily. Health Changes: Getting out for [...] 7 (Mild Depression) 4 (Minimal Depression) 3 (Minimal Depression) Little interest or [...] TAKE 2 TABLETS BY MOUTH EVERY MORNING ANDTAKE 3 TABLETS EVERY EVENING 150 tablet 5 ??? zolpidem (Ambien) 5 mg Tablet Take 0.5-1 tablets by mouth nightly as needed for Sleep. 30 tablet 3 ??? LORazepam (Ativan) 0.5 mg Tablet Take 1 tablet by mouth every 6 hours as needed for Anxiety. 30tablet 0 ??? ferrous sulfate 324 mg (65 [...] mouth every 4 hours as needed. Reported on03/23/2017 No current facility-administered medications for this visit. [...] trials: ?? Celexa ?Venlafaxine ?Fluoxetine ?Bupropion ?Risperidone ?Boomer (current at 600 mg and 900 mg daily) ?Oxcarbazepine ?Clonazepam ?Lorazepam ?Zolpidem (current at 5 mg nightly PRN insomnia) ?Eszopiclone ?Lurasidone 2017 - felt it made her mood worse Naltrexone-GI side effects Manic symptoms have included: increased energy, grandiosity, fast speech, decreased need for sleep,excessive spending Social History: She is to [place] [...] and normal rhythm ?? Language: fluent in serbian ?? Mood:pretty good. ?? Affect: full ?? [...] group to support alcohol abstinence, her son remainsher largest support in the community. Shireen remains engaged, seems hopeful about continuing to increase activity level and accomplishing at least 1 task daily. Encouragement to continue alcohol cessation and engage in self-care activities provided; we will talk in two months. Safety Assessment: Shireen Sivla denies suicidal ideation and denies homicidal ideation. Protective factors include: family and community support and engaged in medical and/or mental health care. Wecarefully reviewed office and emergency contact info and [...] blood pressure PLAN: ?? Medications instructions below: Boomer 600 mg AM, 900 mg HS Ambien [...] Visit (TeleHealth) Psychiatry [place] [address] Isaura García APRN [facility] [place] [address] documented as of this encounter Visit Diagnoses Diagnosis Bipolar affective disorder, currently depressed, mild- Primary Bipolar I disorder, most recent episode (or current) depressed, moderate Alcohol use disorder, mild, abuse documented in this encounter Care Teams Track Mechanic Relationship Specialty Start Date End Date Virginie Gudino, DANNA [address] [facility] [place] [address] PCP - General Family Medicine 06/16/18 07/31/24 documented as of this encounter
--- OUTSIDE RECORDS SUMMARY | 2024-10-05 10:48 | XMS_ITS | Encounter Summary ---
[facility] [place] [address] Care Team Providers Care Veneer Stock Grader Name Role Phone Virginie Gudino DANNA Primary Care Provider Reason for Visit * Reason Comments Medication Refill Encounter Details Date Type Department Care Team (Late st Contact Info) Description 12/29/2023 Refill Psychiatry [place] [phone] Laura Joseph [facility] [place] [address] Social History Tobacco Use Types Packs/Day Years [...] Visit (TeleHealth) Psychiatry [place] [phone] Isaura García [facility] [place] [address] documented as of this encounter Visit Diagnoses Not on filedocumented in this encounter Care Teams Veneer Stock Grader Relationship Specialty Start Date End Date Virginie Gudino, DOOR CAPTAIN [address] [place] [address] PCP - General Family Medicine 06/16/18 07/31/24 documented as of this encounter
--- OUTSIDE RECORDS SUMMARY | 2024-10-05 10:48 | XMS_ITS | Encounter Summary ---
[facility] [place] [address] Care Team Providers Care Foot Doctor Name Role Phone Virginie Gudino DANNA Primary Care Provider [phone] Reason for Visit * Reason Onset Date Comments Medication Refill 04/24/2024 Encounter Details Date Type Department Care Team (Late st Contact Info) Description 04/24/2024 Refill Psychiatry [place] [phone] [facility] [place] [address] Social History Tobacco Use Types Packs/Day Years [...] Visit (TeleHealth) Psychiatry [place] [phone] Isaura García [facility] [place] [address] documented as of this encounter Visit Diagnoses Not on filedocumented in this encounter Care Teams Foot Doctor Relationship Specialty Start Date End Date Virginie Gudino, ACADEMIC SUPPORT SPECIALIST [address] [place] [address] PCP - General Family Medicine 06/16/18 07/31/24 documented as of this encounter
--- OUTSIDE RECORDS SUMMARY | 2024-10-05 10:48 | XMS_ITS | Encounter Summary ---
Author Organization [facility] [place] [address] Care Team Providers Care Tube Drawer Name Role Phone MariettaVirginie ventura DANNA Primary Care Provider [phone] Encounter Details Date Type Department Care Team (Late st Contact Info) Description 08/31/2023 Telephone Psychiatry [place] [phone] Gaviota Rehman RN Social History Tobacco Use Types Packs/Day Years [...] encounter Miscellaneous Notes * Telephone Encounter - Gaviota Rehman RN - 08/31/2023 4:06 PM EDTSummary: Telephone Call Patient called crisis line stating she didn't know who to reach and didn't have access to a computer at the time to send a [employer] message. Patient wanted nursing to communicate with Laura Joseph APRN that she was taken to the local ED by her this past weekend as he was concerned she was having side effects of her librium medication. She reports she was confused and falling more than normal. She wanted to pass on to Jake CLAY that she ended up having a UTI and is feeling better and thinks her librium had nothing to do with it. Patient was told by this RN that she would pass this message along. documented in this encounter Plan of Treatment Upcoming Encounters Date Type Department Care Team (Late st Contact Info) Description 11/09/2024 11:30 AM EST TH Visit (TeleHealth) Psychiatry [place] [address] Isaura García, COMMUNITY DEVELOPMENT MANAGER [facility] [place] [address] documented as of this encounter Visit Diagnoses Not on filedocumented in this encounter Care Teams Tube Drawer Relationship Specialty Start Date End Date Virginie Gudino APRN [address] [place] [address] PCP - General Family Medicine 06/16/18 07/31/24 documented as of this encounter
--- OUTSIDE RECORDS SUMMARY | 2024-10-05 10:48 | XMS_ITS | Encounter Summary ---
Author Organization [facility] [place] [address] Care Team Providers Care Lead Data Architect Name Role Phone Virginie Gudino DANNA Primary Care Provider Reason for Visit * Reason Onset Date Comments Medication Refill 05/03/2022 Encounter Details Date Type Department Care Team (Late st Contact Info) Description 05/03/2022 Refill Psychiatry [place] [phone] Laura Joseph [facility] [place] [address] Social History Tobacco Use Types Packs/Day Years [...] Visit (TeleHealth) Psychiatry [place] [phone] Isaura García [facility] [place] [address] documented as of this encounter Visit Diagnoses Not on filedocumented in this encounter Care Teams Lead Data Architect Relationship Specialty Start Date End Date Virginie Gudino, DIRECTOR SURGICAL [address] [place] [address] PCP - General Family Medicine 06/16/18 07/31/24 documented as of this encounter
--- OUTSIDE RECORDS SUMMARY | 2024-10-05 10:48 | XMS_ITS | Encounter Summary ---
Author Organization [facility] [place] [address] Care Team Providers Care Web Operations Administrator Name Role Phone MariettaVirginie ventura DANNA Primary Care Provider [phone] Encounter Details Date Type Department Care Team (Late st Contact Info) Description 01/12/2023 9:30 AM EST TH Visit (TeleHealth) Psychiatry and [place] [phone] Laura Joseph APRN [facility] [place] [address] Long-term current use of lithium (Primary Dx); *Severe alcohol use disorder; Bipolar I disorder with depression Social History Tobacco Use Types Packs/Day Years [...] Progress Notes * Laura Joseph APRN - 01/12/2023 9:30 AM EST ESTABLISHED ADULT PATIENT OFFICE VISIT NOTE Shireen Silva gave permission for and was seen for today's appointment with a Video Office Visit. During this visit they were located in [place]. Shireen Ricardo is aware that for any urgent matter they can call [phone]. Time Spent: 30 minutes Attendee(s): Shireen Silva, Laura Joseph, [facility] Identifying information: Shireen Silva is a 57 y.o. female with history of Bipolar I disorder. Shetransferred to [facility] APRN from Dr. Villalobos March 2020. She is here for ongoing follow up. Chief Complaint: here for follow up History of Present Illness: () (Quality, Severity, Duration, Timing, Context, Modifying factors, Associated S&S) Psychiatric Symptoms: Continues engaging with Addiction Treatment Program at [facility]; continues meeting with Anika. Is possibly considering attending a group though hesitant due to time (5-6 pm), which we discuss as really a prime time for her due to alcohol intake in the afternoon/evening. Feels IOP is too much of a commitment. No instances of SIB in last month. Mood is 'okay'. Feeling awake once up and gets coffee- Sleep has been good. No bzds Relationships with son/ feel good right now. Limited activity outdoors due to ice Continues to do crafts and enjoying this Acid reflux in the last two days. Unsure of what's aggravating this; has never had before Crafting (cricut-that will sublimate on mugs), walking the dog a bit Health Changes: Recent Labs (2/)-see media for full panel of results: Li: 1.0 Ca 10.2 Cr 1.2 TSH: 0.94 Free T4: 0.74 (L). Does have a multi-nodular cyst-PCP is aware. Admits to weight gain, skin dry, hair dry, feels unmotivated. Dental appointment this week-has quite a bit of work Work/Life/Family Updates: Family supportive at this time Substance Use: Varies significantly; currently 'less than usual' (usually 1+ bottles of wine) Safety: denies SI, denies HI. Convincingly denies suicide attempt with recent SIB Pertinent Medication Side Effects: denied Questionnaires: PHQ9 Questionnaires Data (Clinic and Pt Entered): last 4 values PHQ-9 QUESTIONNAIRE LAST 4 VALUES (AMB) 11/15/2022 11/29/2022 12/21/2022 01/09/2023 PHQ - 9 Score (Patient) 5 (Mild Depression) 5 (Mild Depression) 8 (Mild Depression) 7 (Mild Depression) Little interest or pleasure (Patient) Several days Several days Several days Several days Down, depressed, hopeless (Patient) Several days Several days Several days More than half the days Trouble sleeping (Patient) Not at all Not at all More than half the days Not at all Tired or no energy (Patient) Several days Several days Several days Several days Poor appetite or overeating (Patient) Not at all Not at all Not at all Not at all Feeling like a failure (Patient) Several days Several days Several days More than [...] last 4 values MALVIN-7 Patient Reported Responses 11/15/2022 11/29/2022 12/21/2022 01/09/2023 Nervous, anxious (Patient) Several days Several days Several days Several days Unable to stop worrying (Patient) Not at all Several days Not at all Not at all Worrying about different things (Patient) Not at all Several days Not at all Several days Trouble relaxing (Patient) Several days [...] all Difficulty (Patient) Somewhat difficult Somewhat difficult Somewhat difficult Somewhat difficult MALVIN-7 Score (Patient) 3 (Minimal Anxiety) 6 (Mild Anxiety) 2 (Minimal Anxiety) 2 (Minimal Anxiety) Current Medications: Current Outpatient Medications Medication Sig Dispense Refill ??? mirtazapine (Remeron) 15 mg Tablet Take 0.5 tablets by mouth nightly. 30 tablet 3 ??? FLUoxetine (PROzac) 40 mg Capsule Take 1 capsule by mouth daily. 30 capsule 3 ??? chlordiazePOXIDE (Librium) 25 mg Capsule Day 1: 50 mg every 6 hours Day 2: 50 mg every 8 hours Day 3: 50 mg every 12 hours; Day 4: 50 mg once daily then stop. 20 capsule 0 ??? lithium CR (Lithobid) 300 mg Tablet Sustained Release TAKE TWO TABLETS BY MOUTH EVERY MORNING AND TAKE THREE TABLETS EVERY EVENING 180 tablet 5 ??? ferrous sulfate 324 mg [...] trials: ?? Celexa ?Venlafaxine ?Fluoxetine ?Bupropion ?Risperidone ?Robinwood (current at 600 mg and 900 mg [...] abnormal movements Mental Status Exam: ?? Appearance: well groomed ?? Behavior:cooperative with evaluation otherwise not seen (camera not working) ?? Speech: normal pitch, normal volume, normal rate and normal rhythm ?? Language: fluent in korean ?? Mood: okay. ?? Affect: bright, appropriately interactive ?? Thought Process: linear and logical ?? Associations: intact ?? Thought Content: Denies homicidal or suicidal ideation ?? Perception: No reported auditory hallucinations at today's visit, Historically reports auditory hallucinations of music, sometimes people talking. Nothing negative. ?? Orientation: grossly intact by interview ?? Attention/Concentration: able to sustain focus and able to resist distraction ?? Cognition: grossly intact by interview ?? Memory: recent and remote memory grossly intact by interview ?? Fund of Knowledge: appropriate for age and level of functioning ?? Insight: fair ?? Judgment: fair ?? Labs: Psychiatry Labs: See uploaded results in MEDIA (01/17/22). Li-1.0 Lab Results Component Value Date TSH 1.74 [...] Disorder CURRENT ASSESSMENT: Shireen Silva is a 57 y.o. female with AUD, BPAD and MALVIN who verbalizes depression as her baseline. Her alcohol is clearly interfering with her mental health as well as daily functioning and she acknowledges this; [facility] She is make conscientious efforts to distract herself from drinking excessively though ishesitant to engage in support beyond [facility]/ [facility]. Will continue to engage in [place]. Labs reviewed today and she is in touch with PCP re: thyroid. Safety Assessment: Shireen Silva denies suicidal ideation [...] blood pressure PLAN: ?? Medications instructions below: Robinwood 600 mg AM, 900 mg HS Prozac 40 mg qd mirtazepine 7.5 mg HS ?? Additional treatment recommendations: Therapy:continue with Anika at [facility]: get in April Labs: to get DAVID Patient Instruction/Education provided: Patient provided verbal instructions regarding medication side effects, safety plan in case of feeling unsafe. Patient understands the plan? Yes Signed By: Laura Joseph APRN documented in this encounter Plan of Treatment Upcoming Encounters Date Type Department Care Team (Late st Contact Info) Description 11/09/2024 11:30 AM EST TH Visit (TeleHealth) Psychiatry and [place] [address] Isaura García APRN [facility] [place] [address] documented as of this encounter Visit Diagnoses Diagnosis Long-term current use of lithium- Primary *Severe alcohol use disorder Bipolar I disorder with depression Bipolar I disorder, most recent episode (or current) depressed, unspecified documented in this encounter Care Teams Web Operations Administrator Relationship Specialty Start Date End Date Virginie Gudino APRN [address] [place] [address] PCP - General Family Medicine 06/16/18 07/31/24 documented as of this encounter
--- OUTSIDE RECORDS SUMMARY | 2024-10-05 10:48 | XMS_ITS | Encounter Summary ---
Author Organization [facility] [place] [address] Care Team Providers Care Pump Installer Name Role Phone MariettaVirginie ventura DANNA Primary Care Provider [phone] Encounter Details Date Type Department Care Team (Late st Contact Info) Description 03/28/2024 10:00 AM EDT TH Visit (TeleHealth) Psychiatry [place] [id number] Laura Joseph ADZ WORKER [facility] [place] [address] Bipolar affective disorder, currently depressed, mild (Primary Dx); Long-term current use of lithium; [...] as of this encounter Progress Notes * Barbara Ramos - 03/28/2024 10:00 AM EDT ESTABLISHED ADULT PATIENT OFFICE VISIT NOTE Shireen Silva gave permission for and was seen for today's appointment with a Video Office Visit. During this visit they were located in [place]. Shireen Badillodge is aware that for any urgent matter they can call [phone]. Time Spent: 30 minutes Attendee(s): Shireen Silva, Laura Joseph, PMHNP; Barbara Ramos HNP student Identifying information: Shireen Silva is a 58 y.o. female with history of Bipolar I disorder. Shetransferred to [facility] APRN from Dr. Villalobos March 2020. She is here for ongoing follow up. Chief Complaint: here for follow up History of Present Illness: (03/28/24) (Quality, Severity, Duration, Timing, Context, Modifying factors, Associated S&S) Psychiatric Symptoms: I feel good and have had some energy to get some stuff done. I checked in with my family and theydon't see any concerns regarding diana. Mood lifted but not extensively. States this just may be what not feeling depressed feels like. The toughest things right now is, my youngest son, Hesham (age 23) is in rehab for alcohol. He felt a weight lifted and he went a week ago Thursday he sounds better and is doing outdoors activities and he's doing after care planning Sometimes my mind goes in different directions but then I write it all down. Thinking more systematically by writing things down. Admits to wanting to buy new pieces of furniture, but then writes down these items and is able to process the lack of need. Exercise/hobbies: Walking, ???trying to do yoga?? . Organizing craft area and getting a new desk. Few projects on her want to do list especially for ???mothers day?? gifts Sleep: Last night I slept well but sleep is not always good. There are nights I wake on and off. Discuss decreasing mirtazepine to 7.5 mg to possibly help with sedation Health Changes: Next Wellcheck with PCP in the next month Creatinine up, GFR vladislav (02/02/ labs) Taking B12, vitamin, Vitamin D Discuss getting updated labs-she will do at [facility] Work/Life/Family Updates: New haircut (increased self-care) , Noble recently had hernia surgery and back to work today Mother and sister live in [place] and have a supportive relationship Sister that lives in [place] visited [place] in February and will likely visit again over summer Dad in a halfway. 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 son (Maycol) stays with father in law in [place]-not currently working Friends: Malick and Kymberly trying to get together more Substance Use: Varies but has been cutting it half by buying Alcohol free wine and mixing it half and half with a Ramya: ???I need to get myself together with my drinking for Hesham?? . Safety: denies SI, denies HI. Denies SIB. Pertinent Medication Side Effects: denied Questionnaires: PHQ9 Questionnaires Data (Clinic and Pt Entered): last 4 values 10/29/2023 8:00 PM 12/07/2023 9:47 AM 02/08/2024 1:01 PM 03/26/2024 2:35 AM PHQ-9: Last 4 Responses PHQ - 9 Score 4 (Minimal Depression) 5 (Mild Depression) 5 (Mild Depression) 3 (Minimal Depression) PHQ - 9 Score (Pt Questionnaire) 4 (Minimal Depression) 5 (Mild Depression) 5 (Mild Depression) 3 (Minimal Depression) Little interest or pleasure Several Days Several Days Several Days Not at all Little interest or pleasure (Pt Questionnaire) Several Days Several Days Several Days Not at all Down, depressed, hopeless Several Days Several Days Several Days Several Days Down, depressed, hopeless (Pt Questionnaire) Several Days Several Days Several Days Several Days Trouble sleeping Not at all Several days Several days Several days Trouble sleeping (Pt Questionnaire) Not at all Several days Several days Several days Tired or no energy Several Days Several Days Several Days Not at all Tired or no energy (Pt Questionnaire) Several Days Several Days Several Days Not at all Poor appetite or overeating Not at all [...] all GAD7 Questionnaires Data: last 4 values 10/29/2023 8:00 PM 12/07/2023 9:47 AM 02/08/2024 1:01 PM 03/26/2024 2:35 AM MALVIN-7 Responses GAD7 Total Score (Range 0-21) 0 (No Anxiety) 4 (Minimal Anxiety) MALVIN-7 Score 5 3 0 4 MALVIN-7 Score (Pt Questionnaire) 5 (Mild Anxiety) 3 (Minimal Anxiety) 0 (No Anxiety) 4 (Minimal Anxiety) Nervous, anxious Several days Several days Not at all Several days Unable to stop worrying Several days Several days Not at all Several days Worrying about different things Several days Not at all Not at all Several days Trouble relaxing Not at all Not at all Not at all Several days Restless Not at all Not at all Not at all Not at all Easily annoyed, irritable Several days Several days Not at all Not at all Afraid something awful will happen Several days Not at all Not at [...] medications trials: Celexa Venlafaxine Fluoxetine Bupropion Risperidone [place] (current at 600 mg and 900 mg [...] In review and further investigation she was Kentland toxic and we made drastic changes to her lithium dosing (now 300 mg BID). Throughout that time of toxicity (at least 09/14 through 10/02) I was notified by [facility] neurologist about her toxic levels (she had been referred to see this neurologist due to her presentation)-most recent labs 10/05: Creatinine 1.2 [place] 1.1 (had been 1.5 on 09/29 and [facility] previously alerted me to a level of [...] Normal rate. Language: The patient speaks fluent Swazi. Mood: comments: I'm doing good and getting things done Affect: The patient exhibits a full affect [...] Judgment: good Labs: Psychiatry Labs: See uploaded [facility] lab results in [facility] (02/03/2024) 02/03/24: [place] level 0.5 Calcium 105 Creatinine 1.3 est GFR 48.26 Formulation and Assessment: Diagnosis: Bipolar 1 Disorder, MALVIN, Alcohol Use Disorder CURRENT ASSESSMENT: Shireen Silva is a 58 y.o. female with AUD, BPAD and MALVIN who reports feeling well and has more energy which makes her feel more productive. She has checked in with her family to inquire if they are concerned and they deny. She states this just may be what feeling not depressedfeels like. She is engaged in conversation and expresses worry about her son who is currently in inpatient alcohol program and reflective of her own alcohol intake and recognizes how this may impacther son, Hesham when he returns home from rehab. She denies manic symptoms as well as overt depressive symptoms. We make a plan together to continue Kentland at current dose (had previously thought to decrease further though want to monitor energy levels and ensure sleep improves in time) and decrease mirtazepine to 7.5 mg (to possibly improve sedative effect. Safety Assessment: Shireen Silva denies suicidal ideation and denies homicidal ideation. Protective factors include: Supportive and involved family; goal oriented and active with her hobbies including yoga, walking, crafts. We carefully reviewed office and emergency contact info and when to contact our crisis line at . PLAN: Medications instructions below: Continue Kentland ER 450 mg Prozac 40 mg qd Decrease mirtazapine dose from 15 mg down to 7.5 mg Q HS to assist with improvement in sleep. Ativan 0.5 mg PRN for panic, high anxiety symptoms Additional treatment recommendations: Monitor sleep pattern, Reduce alcohol intake, discussed need for close monitoring of kidney function and her increase in creatinine and how lithium effects kidney. Encouraged importance of hydration and water intake and follow up with PCP. Patient Instruction/Education provided: Patient provided verbal instructions regarding medication side effects, safety plan in case of feeling unsafe. Patient understands the plan? Yes Barbara LINARESP student 03/28/2024 This visit was performed jointly with student Barbara Ramos, HNP student. I completed the exam andreviewed the assessment and plan with Barbara. In regards to the assessment and plan, which was formulated at my direction: we will continue Kentland ER 450 mg for mood stabilization (Shireen and I agreed to continue this dose for a longer period of time to ensure we keep manic symptoms at bay) and decrease mirtazepine to 7.5 mg to possibly increase sedation value. I personally reviewed all applicable documented studies and diagnostic images (labs again from 02/03/24) Laura Joseph APRN documented in this encounter Plan of Treatment Upcoming Encounters Date Type Department Care Team (Late st Contact Info) Description 11/09/2024 11:30 AM EST TH Visit (TeleHealth) Psychiatry [place] [address] Isaura García APRN [facility] [place] [address] documented as of this encounter Visit Diagnoses Diagnosis Bipolar affective disorder, currently depressed, mild- Primary Bipolar I disorder, most recent episode (or current) depressed, moderate Long-term current use of lithium *Moderate alcohol use disorder documented in this encounter Care Teams Pump Installer Relationship Specialty Start Date End Date Virginie Gudino APRN [address] [place] [address] PCP - General Family Medicine 06/16/18 07/31/24 documented as of this encounter
--- OUTSIDE RECORDS SUMMARY | 2024-10-05 10:48 | XMS_ITS | Encounter Summary ---
Author Organization Formerly [facility] [place] [address] Care Team Providers Care Credit Counselor Name Role Phone Virginie Gudino DANNA Primary Care Provider [phone] Encounter Details Date Type Department Care Team (Late st Contact Info) Description 02/15/2024 10:00 AM EDT TH Visit (TeleHealth) Psychiatry [place] [phone] Laura Joseph APRN [facility] [place] [address] Bipolar affective disorder, currently depressed, mild (Primary Dx); [place] use; *Moderate alcohol use disorder Social History Tobacco [...] as of this encounter Progress Notes * Jil Vidal - 02/15/2024 10:00 AM EDT ESTABLISHED ADULT PATIENT OFFICE VISIT NOTE Time Spent: 30 minutes via telehealth Attendee(s): Shireen Silva Identifying information: Shireen Silva is a 58 y.o. female with history of Bipolar I disorder. Shetransferred to [facility] Mistry APRN from Dr. Villalobos March 2020. She is here for ongoing follow up. Chief Complaint: I feel good, not in a manic way History of Present Illness: () (Quality, Severity, Duration, Timing, Context, Modifying factors, Associated S&S) Psychiatric Symptoms: Since last visit 12/07: Feels more relaxed- started yoga program through [employer] body. Helps with mindset and feeling better about self. Appreciates benefits of breath work. Completed 1 week intro- currently doing 3 week program. Endorses getting overwhelmed remains her struggle. She does am yoga, then errands and then becomes overwhelmed. She endorses this has improved with self-care and not worrying about being a certain way. Notices some more anxiety due to drinking less, ativan helpful in afternoon. Mood good not in a manic way, nothing out of the ordinary. Cognition: Endorses more focus with yoga. Emotions: Towards end of the day around dinner time- problematic. Discussed ETOH can partake in emotional dysregulation. Sleep: Not great- wake up a lot during the night, has increased reason: wasn't feeling well- drinkswater- wakes up and have to go to bathroom. Discussed benefit of hydrating more throughout the day to increase duration/quality of sleep. Substance use- Drinks wine- gradually cutting back. Health Changes: Started yoga through [employer]: endorses increasing relaxed. Completed 1st week intro course and currently working on 3 week course, endorses Eating healthier diet, wants to lose weight, partly why she's decreasing ETOH consumption Work/Life/Family Updates: Family: [place]- 30 years and 3 sons- all good, appreciates checks in with her every day at lunch. Going to see family in [facility] in February for eclipse- looking forward to it Substance Use: has decreased, drinking less wine. Safety: Denies SI/SIB Pertinent Medication Side Effects: None Questionnaires: PHQ9 Questionnaires Data (Clinic and Pt Entered): last 4 values 10/18/2023 10/29/2023 12/07/2023 02/08/2024 PHQ-9: Last 4 Responses PHQ - 9 Score 6 (Mild Depression) 4 (Minimal Depression) 5 (Mild Depression) 5 (Mild Depression) PHQ - 9 Score (Pt Questionnaire) 6 (Mild Depression) 4 (Minimal Depression) 5 (Mild Depression) 5 (Mild Depression) Little interest or pleasure Several Days Several Days Several Days Several Days Little interest or pleasure (Pt Questionnaire) Several Days Several Days Several Days Several Days Down, depressed, hopeless Several Days Several Days Several Days Several Days Down, depressed, hopeless (Pt Questionnaire) Several Days Several Days Several Days Several Days Trouble sleeping Several days Not at all Several days Several days Trouble sleeping (Pt Questionnaire) Several days Not at all Several days Several days Tired or no energy Several Days Several Days Several Days Several Days Tired or no energy (Pt Questionnaire) Several Days Several Days Several Days Several Days Poor appetite or [...] Days Several Days Several Days Trouble concentrating Several Days Not at all Not at all Not at all Trouble concentrating (Pt Questionnaire) Several Days Not at all Not at all Not [...] all GAD7 Questionnaires Data: last 4 values 10/18/2023 10/29/2023 12/07/2023 02/08/2024 MALVIN-7: All Responses GAD7 Total Score (Range 0-21) 0 (No Anxiety) MALVIN-7 Score 0 5 3 0 MALVIN-7 Score (Pt Questionnaire) 0 (No Anxiety) 5 (Mild Anxiety) 3 (Minimal Anxiety) 0 (No Anxiety) Nervous, anxious (Pt Questionnaire) Not at all Several days Several days Not at all Nervous, anxious Not at all Several days Several days Not at all Unable to stop worrying (Pt Questionnaire) Not at all Several days Several days Not at all Unable to stop worrying Not at all Several days Several days Not at all Worrying about different things (Pt Questionnaire) Not at all Several days Not at all Not at all Worrying about different things Not at all Several days Not at all Not at all Trouble relaxing (Pt Questionnaire) Not at all Not at all Not at all Not at all Trouble relaxing Not at all Not at all Not at all Not at all Restless (Pt Questionnaire) Not at all Not at all Not at all Not at all Restless Not at all Not at all Not at all Not at all Easily annoyed, irritable (Pt Questionnaire) Not at all Several days Several days Not at all Easily annoyed, irritable Not at all Several days Several days Not at all Afraid something awful will happen (Pt Questionnaire) Not at all Several days Not at all Not at all Afraid something awful will happen Not at all Several days Not at all Not at all Current Medications: Current Outpatient Medications Medication Sig Dispense Refill LORazepam (Ativan) 0.5 mg tablet Take 1 tablet by mouth daily as needed for Anxiety. For high anxiety/panic. Do not mix with alcohol. 10 tablet 0 mirtazapine (Remeron) 15 mg tablet TAKE ONE TABLET BY MOUTH EVERY EVENING 30 tablet 3 FLUoxetine (PROzac) 40 mg capsule TAKE ONE CAPSULE BY MOUTH EVERY DAY 30 capsule 3 lithium CR (Lithobid) 300 mg ER tablet Take 1 tablet by mouth 2 times daily. ferrous sulfate 324 mg (65 mg iron) [...] no nausea, no vomiting, no diarrhea, no constipation, and no abdominal pain NEURO no headache, no numbness, no tremors, no weakness, and no seizures PSYCH See above / control Did not discuss Allergies Reviewed on eD-H Past Psychiatric history [...] medications trials: Celexa Venlafaxine Fluoxetine Bupropion Risperidone [place] (current at 600 mg and 900 mg daily) Oxcarbazepine Clonazepam Lorazepam Zolpidem (current at 5 mg nightly PRN insomnia) Eszopiclone Lurasidone 2016 - felt it made her mood worse Naltrexone-GI side effects Manic symptoms have included: increased energy, grandiosity, fast speech, decreased need for sleep,excessive spending. SIB re-occurred late 2021 (also had increase in alcohol use, depression)-did go to ER. ----- [place] toxicity 1.8: Went to ER 08/31/23 for confusion, falling, general instability. Decreased [place] ER to 300mg BID. [place] 09/29= 1.5 and 10/22=1.1. [place] on 02/03/24 = 0.5 Most recent labs 02/03/24 : elevated Ca 10.5 (high prior starting lithium) and Creatinine 1.3, increased from 10/22 (1.2) Substance Use: Drinking less wine, denies other drug use Family/Social History: She is to [place] of about 30 years. They have 3 sons (21, 25, 27). Her is retired from [employer]. She is on disability for BPD1. Notes growing up in family that didn't express emotions easily and she finds she internalizes things. Musculoskeletal System: normal gait and balance, ambulates independently, no atrophy, no abnormal movements, and no stiffness Mental Status Exam: Appearance: age appropriate, casually dressed, and well groomed Behavior: cooperative with the interview, calm, and good eye contact Speech: normal pitch, normal volume, normal rate, normal rhythm, and spontaneous Language: fluent in kinyarwanda, without paraphasic errors, and without word finding difficulty Mood: Good Denies diana Affect: bright and mood-congruent Thought Process: linear, logical, and normal use of abstraction Associations: intact Thought Content: denied homicidal ideation, denied suicidal ideation, no bizarre delusions, and no paranoid delusions Perception: not observed responding to internal stimuli no depersonalization no derealization Orientation: grossly intact by interview Attention/Concentration: able to sustain focus, able to resist distraction, and able to attend interview Cognition: grossly intact by interview Memory: recent and remote memory grossly intact Fund of Knowledge: appropriate for age and level of functioning Insight: good Judgment: good Labs: Psychiatry Labs: Lab Results Component Value Date TSH 1.74 [...] 04/07/2019 TSH 1.74 04/07/2019 WBC 7.4 07/26/2018 12/03/23: ETOH biomarkers elevated: drinking less: increased health conscious Assessment: Diagnosis: Bipolar I Disorder CURRENT ASSESSMENT: Shireen presents today with no episodes of depression or diana. Psychologically/socially protective factors include drinking less, eating healthier, engaging in a yoga program with resulting feeling of increased relaxation and feeling healthier. Psychologically, anxiety drove ETOH use, ativan helpful since decreasing ETOH uses and has used a few times in the afternoon with good benefit (last filled September 2023). [place] WNL at 0.5 on 02/03/24. She has poor sleep quality due to learned behavior during illness to have water by bed. Safety Assessment: Shireen Silva denies suicidal and homicidal ideation. Protective factors include: family and community support, engaged in medical and/or mental health care, effective coping skills, and future orientation. We carefully reviewed office and emergency contact info and when to contact our crisis line at . PLAN: Medications changes: Change dosing regimen from lithium ER 300mg BID to lithium ER 600mg nightly, starting today (did not take am dose yet). Kidneys slow down and processes lithium slower at night, changing to PM dose only decreases risk of kidney damage and may decrease need to urinate. Follow-up in a few weeks or sooner if any activated/ untoward symptoms arise. Continue: Prozac 40 mg qd mirtazepine 15 mg HS Ativan 0.5 mg PRN for panic, high anxiety symptoms. Follow-up if any activated/ untoward symptoms arise Additional treatment recommendations: Therapy:Yoga, [employer] Labs: Early summer [place] level Self care: Discussed staying more hydrated during day to stabilize sleep regimen, continue yoga, healthy diet, sleep hygiene, drinking less, enjoying family activities Follow-up: 03/28. Plan to decrease to lithium 450mg nightly then to protect kidney function. If manic symptoms arise, resume 600mg nightly. Patient Instruction/Education provided: Patient provided verbal instructions regarding medication side effects, safety plan in case of feeling unsafe. We discussed that I am available via [employer], [employer] I do not check this daily, and should not be used in case of emergency. We have reviewed crisis numbers to call in case of emergency. Patient understands the plan? Yes For mental health emergencies, call 988 from anywhere in the [facility]. State specific information for [place] and [place] crisis services are as follows and should be used to access local resources: [facility] Mental Health Crises Services [facility] Crisis Line text or call Visit www.fsboWOW for further information [place] Call your local community crisis line at: [place]: [facility] [phone] [place]: [facility] [phone] [place]: [facility] [phone] [place]: Richie Venango [phone] [place]: [facility] [phone] Beau boston [place]: [facility] Counsel[facility] and Support [phone] [place]: [facility] [phone] on weekdays 8AM-4:30PM and [phone] on nights and weekends [place]: Shruti Thapa Venango [place]: [facility] [phone] [place]: [facility] Services [phone] [place]: [facility] Services, [place]: RS [place]: RS or Text [place] to [phone] For further information for [place] residents: https://[email or web address].[email or web address]/services/emergency-services/zyg-mck-wdlj National Suicide Prevention Hotline: For patients cared for in the Department of Psychiatry, you can reach your mental health clinician at [phone]. Signed By: Jil Vidal 02/15/2024 This visit was performed jointly with student Jil Vidal RN, DNP student The patient???s history was validated in the patient???s presence and is notable for Bipolar II Disorder, most recent episode depressed. Shireen appears to be the most emotionally stable than I have seen her in the last three years. Adding yoga and a morning routine as well as decreasing alcohol use (and possibly decreasing [place]) has been helpful. In review of her recent labs, GFR is trending down (now at 48). Dosing all lithium at night spares the kidney of potential harm. Studies have shown that once-a-day lithium at night, compared with multiple daily doses, lowers urine volume and other symptoms of the lithium-induced diabetes insipidus-like syndrome (Ton R, Nydiaf P, Nydiaf E. Less frequent lithium administration and lower urine volume. Am J Psychiatry. 1991;148(2):189-192.) The assessment and plan was formulated at my direction, in summary plan to dose all lithium at night for renal benefits with idea to taper further to 450 mg HS. I am considering a nephrology consult though want to talk to Shireen further about that. I am happy to see that Li level is 0.5 mmol/l and would like to keep it less than 0.6. Laura Joseph APRN documented in this encounter Plan of Treatment Upcoming Encounters Date Type Department Care Team (Late st Contact Info) Description 11/09/2024 11:30 AM EST TH Visit (TeleHealth) Psychiatry [place] [phone] Isaura García APRN [facility] [place] [address] documented as of this encounter Visit Diagnoses Diagnosis Bipolar affective disorder, currently depressed, mild- Primary Bipolar I disorder, most recent episode (or current) depressed, moderate [place] use Encounter for long-term (current) use of other medications *Moderate alcohol use disorder documented in this encounter Care Teams Credit Counselor Relationship Specialty Start Date End Date Virginie Gudino APRN [address] [place] [address] PCP - General Family Medicine 06/16/18 07/31/24 documented as of this encounter
--- OUTSIDE RECORDS SUMMARY | 2024-10-05 10:48 | XMS_ITS | Encounter Summary ---
[facility] Organization [facility] [place] [address] Care Team Providers Care Band Bias Machine Operator Name Role Phone Virginie Gudino DANNA Primary Care Provider [phone] Reason for Visit * Reason Comments Medication Refill Encounter Details Date Type Department Care Team (Late st Contact Info) Description 04/26/2022 Refill Psychiatry [place] [phone] Laura Joseph [facility] [place] [address] Social History Tobacco Use Types Packs/Day Years [...] Visit (TeleHealth) Psychiatry [place] [phone] Isaura García [facility] [place] [address] documented as of this encounter Visit Diagnoses Not on filedocumented in this encounter Care Teams Band Bias Machine Operator Relationship Specialty Start Date End Date Virginie Gudino, FLIGHT DISPATCHER [address] [place] [address] PCP - General Family Medicine 06/16/18 07/31/24 documented as of this encounter
--- OUTSIDE RECORDS SUMMARY | 2024-10-05 10:48 | XMS_ITS | Encounter Summary ---
Author Organization [facility] [place] [address] Care Team Providers Care Cost Specialist Name Role Phone Virginie Gudino DANNA Primary Care Provider [phone] Reason for Visit * Reason Onset Date Comments Medication Refill 06/06/2022 Encounter Details Date Type Department Care Team (Late st Contact Info) Description 06/06/2022 Refill Psychiatry and [place]al [place] [phone] Laura Joseph [facility] [place] [address] Social History Tobacco Use Types Packs/Day Years [...] Visit (TeleHealth) Psychiatry and [place] [phone] Isaura García [facility] [place] [address] documented as of this encounter Visit Diagnoses Not on filedocumented in this encounter Care Teams Cost Specialist Relationship Specialty Start Date End Date Virginie Gudino, BISQUE TILE BURNER [address] [place] [address] PCP - General Family Medicine 06/16/18 07/31/24 documented as of this encounter
--- OUTSIDE RECORDS SUMMARY | 2024-10-05 10:48 | XMS_ITS | Encounter Summary ---
Author Organization [facility] [place] [address] Care Team Providers Care Canteen Attendant Name Role Phone MariettaVirginie ventura DANNA Primary Care Provider [phone] Encounter Details Date Type Department Care Team (Late st Contact Info) Description 04/06/2023 9:30 AM EDT TH Visit (TeleHealth) Psychiatry [place] [id number] Laura Joseph APRN [facility] [place] [address] Long-term current use of lithium (Primary Dx); Alcohol use disorder, mild, abuse; Bipolar I disorder with depression Social History [...] Progress Notes * Laura Joseph APRN - 04/06/2023 9:30 AM EDT Images from the original note were not included. ESTABLISHED ADULT PATIENT OFFICE VISIT NOTE Shireen Silva gave permission for and was seen for today's appointment with a Video Office Visit. During this visit they were located in [place]. Shireen Ricardo is aware that for any urgent matter they can call [phone]. Time Spent: 30 minutes Attendee(s): Shireen Silva, Laura Joseph, [facility]aspal Identifying information: Shireen Silva is a 57 y.o. female with history of Bipolar I disorder. Shetransferred to [facility] APRN from Dr. Villalobos March 2020. She is here for ongoing follow up. Chief Complaint: here for follow up History of Present Illness: () (Quality, Severity, Duration, Timing, Context, Modifying factors, Associated S&S) Psychiatric Symptoms: Continues engaging with Addiction Treatment Program at [facility]; meeting with Anika every other week or so via telephone. Cancelled appointment for tomorrow- feels like she can anticipate what the conversation will look like and wants to push the appointment out a bit. Had fallen recently while fixing the shower head. No major concerns Feels unmotivated but not depressed. Discuss her thyroid nodule and wonders if her hormones are outof balance (TSH). Had recent TSH of over 2 (up from 0.94). Will retest and review. Had dentist appointment-one tooth extracted and awaiting crown placement for a different tooth. Has a new PCP-Sandy Gordon NP-will meet in April Sleep has been good with Remeron. 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 Hoping to complete set for family reunion in April. Health Changes: Recent Labs (01/02)-see media for full panel of results: Li: 1.0 Ca 10.2 Cr 1.2 TSH: 0.94 -------reports May Lab of TSH: 2.13 Free T4: 0.74 (L). Does have a multi-nodular cyst-PCP is aware. Admits to weight gain, skin dry, hair dry, feels unmotivated. Has PCP appointment in April with labs to be drawn before then. Dental appointment tomorrow-root canal scheduled Work/Life/Family Updates: Family supportive Went to [place]-uncle had passed (mother's brother)-drove alone to take her mom to the Going to [place] for family reunion mid-late April Substance Use: Varies significantly; currently 'less than usual' (usually 1+ bottles of wine). States she is now drinking 1-1.5 small boxes of wine (feels this is a decrease, as of 02/09/23) Safety: denies SI, denies HI. Denies SIB. Pertinent Medication Side Effects: denied Questionnaires: PHQ9 Questionnaires Data (Clinic and Pt Entered): last 4 values 11/29/2022 8:17 PM 12/21/2022 1:06 PM 01/09/2023 9:29 AM 02/08/2023 10:57 AM PHQ-9: Last 4 Responses PHQ - 9 Score (Pt Questionnaire) 8 (Mild Depression) 7 (Mild Depression) 6 (Mild Depression) Little interest or pleasure (Pt Questionnaire) Several days Several days Several days Down, depressed, hopeless (Pt Questionnaire) Several days More than half the days Several days Trouble sleeping (Pt Questionnaire) More than half the days Not at all Several days Tired or no energy (Pt Questionnaire) Several days Several days Several days Poor appetite or overeating (Pt Questionnaire) Not at all Not at all Not at all Feeling like a failure (Pt Questionnaire) Several days More than half the days Several days Trouble concentrating (Pt Questionnaire) Several days Several days Several days Moving or speaking slowly (Pt Questionnaire) Not at all Not at all Not at all Would be better off (Pt Questionnaire) Several days Not at all Not at all How difficult are the problems (Pt Questionnaire) Somewhat difficult Somewhat difficult Somewhat difficult How difficult are the problems (Pt Questionnaire-Adolescent) Somewhat difficult Somewhat difficult Somewhat difficult Information is confidential and restricted. Go to Review Flowsheets to unlock data. GAD7 Questionnaires Data: last 4 values 11/29/2022 8:17 PM 12/21/2022 1:06 PM 01/09/2023 9:29 AM 02/08/2023 10:57 AM MALVIN-7 Patient Reported Responses Nervous, anxious (Patient) Several days Several days Several days Unable to stop worrying (Patient) Not at all Not at all Not at all Worrying about different things (Patient) Not at all Several days Not at all Trouble relaxing (Patient) Not at all Not at all Not at all Restless (Patient) Not at all Not at all Not at all Easily annoyed, irritable (Patient) Several days Not at all Several days Afraid something awful will happen (Patient) Not at all Not at all Not at all Difficulty (Patient) Somewhat difficult Somewhat difficult Somewhat difficult MALVIN-7 Score (Patient) 2 (Minimal Anxiety) 2 (Minimal Anxiety) 2 (Minimal Anxiety) Information is confidential and restricted. Go to Review Flowsheets to unlock data. Current Medications: Current Outpatient Medications Medication Sig Dispense Refill ??? mirtazapine (Remeron) 15 mg Tablet Take 0.5 tablets by mouth nightly. 30 tablet 3 ??? FLUoxetine (PROzac) 40 mg Capsule Take 1 capsule by mouth daily. 30 capsule 3 ??? lithium CR (Lithobid) [...] this visit. Review of Systems: CONST no fever GI [...] trials: ?? Celexa ?Venlafaxine ?Fluoxetine ?Bupropion ?Risperidone ?[place] (current at 600 mg and 900 mg daily) ?Oxcarbazepine ?Clonazepam ?Lorazepam ?Zolpidem (current at 5 mg nightly PRN insomnia) ?Eszopiclone ?Lurasidone 2017 - felt it made her mood worse Naltrexone-GI side effects Manic symptoms have included: increased energy, grandiosity, fast speech, decreased need for sleep,excessive spending. SIB re-occurred late 2021 (also had increase in alcohol use, depression)-did go to ER. Social History: She is to [place] of [...] ?? Appearance: well groomed ?? Behavior:cooperative with evaluation, conversant ?? Speech: normal pitch, normal volume, normal rate and normal rhythm ?? Language: fluent in finnish ?? Mood: okay. ?? Affect: bright, appropriately [...] Psychiatry Labs: See uploaded results in MEDIA (01/02/23) Lab Results Component Value Date TSH 1.74 [...] verbalizes depression as her baseline. She is make conscientious efforts to distract herself from drinking excessively though is hesitant to engage in support beyond [facility]/ [facility] and verbalizes that she needs to make the conscious effort to make a change. She is cognizant of weight gain as well as other symptoms of thyroid dysfunction listed above. Lab orders to be faxed to [facility]. Safety Assessment: Shireen Silva denies suicidal ideation [...] blood pressure PLAN: ?? Medications instructions below: [place] 600 mg AM, 900 mg HS Prozac 40 mg qd mirtazepine 7.5 mg HS ?? Additional treatment recommendations: Therapy:continue with Anika at [facility]: get in April Labs: to get DAVID Patient Instruction/Education provided: Patient provided verbal instructions regarding medication side effects, safety plan in case of feeling unsafe. Patient understands the plan? Yes Signed By: Laura Joseph APRN 04/06/2023 documented in this encounter Plan of Treatment Upcoming Encounters Date Type Department Care Team (Late Contact Info) Description 11/09/2024 11:30 AM EST TH Visit (TeleHealth) Psychiatry [place] [address] Isaura García APRN [facility] [place] [address] documented as of this encounter Visit Diagnoses Diagnosis Long-term current use of lithium- Primary Alcohol use disorder, mild, abuse Bipolar I disorder with depression Bipolar I disorder, most recent episode (or current) depressed, unspecified documented in this encounter Care Teams Canteen Attendant Relationship Specialty Start Date End Date Virginie Gudino APRN [address] [place] [address] PCP - General Family Medicine 06/16/18 07/31/24 documented as of this encounter
--- OUTSIDE RECORDS SUMMARY | 2024-10-05 10:48 | XMS_ITS | Encounter Summary ---
Author Organization [facility] [place] [address] Care Team Providers Care Hospital Pharmacy Technician Name Role Phone Virginie Gudino APRN Primary Care Provider [phone] Encounter Details Date Type Department Care Team (Latest Contact Info) Description 10/21/2022 Travel Social History Tobacco Use Types Packs/Day [...] Visit (TeleHealth) Psychiatry [place] [address] Isaura García APRN [facility] [place] [address] documented as of this encounter Visit Diagnoses Not on filedocumented in this encounter Care Teams Hospital Pharmacy Technician Relationship Specialty Start Date End Date Virginie Gudino APRN [address] [place] [address] PCP - General Family Medicine 06/16/18 07/31/24 documented as of this encounter
--- OUTSIDE RECORDS SUMMARY | 2024-10-05 10:48 | XMS_ITS | Encounter Summary ---
Author Organization [facility] [place] [address] Care Team Providers Care Purchasing Specialist Name Role Phone Virginie Gudino APRN Primary Care Provider [phone] Encounter Details Date Type Department Care Team (Late st Contact Info) Description 02/20/2024 Orders Only Psychiatry [place] [phone] [facility] [place] [address] Social History Tobacco Use Types Packs/Day Years [...] Visit (TeleHealth) Psychiatry [place] [phone] Isaura García [facility] [place] [address] documented as of this encounter Visit Diagnoses Not on filedocumented in this encounter Care Teams Purchasing Specialist Relationship Specialty Start Date End Date Virginie Gudino, SHEET METAL WORK FURNACE INSTALLER [address] [facility] [address] PCP - General Family Medicine 06/16/18 07/31/24 documented as of this encounter
--- OUTSIDE RECORDS SUMMARY | 2024-10-05 10:48 | XMS_ITS | Encounter Summary ---
Author Organization [facility] [place] [address] Care Team Providers Care Marine Geologist Name Role Phone MariettaVirginie ventura DANNA Primary Care Provider [phone] Encounter Details Date Type Department Care Team (Late st Contact Info) Description 01/06/2022 11:00 AM EST TH Visit (TeleHealth) Psychiatry [place] [address] Laura Joseph APRN [facility] [place] [address] Bipolar affective disorder, currently depressed, moderate (Primary Dx); Alcohol use disorder, mild, abuse [...] Progress Notes * Laura Joseph APRN - 01/06/2022 11:00 AM EST ESTABLISHED ADULT PATIENT OFFICE VISIT NOTE Shireen Silva gave permission for and was seen for today's appointment with a Video Office Visit. During this visit they were located in [place]. Shireen Ricardo is aware that for any urgent matter they can call [phone]. Time Spent: 25 minutes Attendee(s): Shireen Silva Identifying information: Shireen Silva is a 56 [...] goes hand in hand with that. When asked about how much she is drinking each day/night, Shireen is unable to quantify. Did not get labs-will within the next month Health Changes: Feeling physically well. Will get labs this month (forgot) Work/Life/Family Updates: Bought online crafting instructions/tutorial videos with money mom gave her for [employer]. 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 30tablet 0 ??? FLUoxetine (PROzac) 20 mg Capsule Take 1 capsule by mouth daily. In addition to 10 mg 30 capsule 5 ??? lithium CR (Lithobid) 300 mg Tablet Sustained Release TAKE 2 TABLETS BY MOUTH EVERY MORNING AND3 TABLETS IN THE EVENING 150 tablet 5 ??? zolpidem (Ambien) 5 mg Tablet Take 0.5-1 tablets by mouth nightly as needed for Sleep. 30 tablet 3 ??? FLUoxetine (PROzac) 10 mg Capsule Take [...] trials: ?? Celexa ?Venlafaxine ?Fluoxetine ?Bupropion ?Risperidone ?[place] (current at 600 mg and 900 [...] and normal rhythm ?? Language: fluent in khmer ?? Mood:I'm okay. ?? Affect: full ?? [...] excessive energy, several nights of not needing sleep,excessive spending (I came home with a new car!) and decide to only increase Prozac to 40 mg to avoid possible cycling. We discuss at length the contribution that alcohol has to her depression. Sherecognizes this and acknowledges that she does have [...] blood pressure PLAN: ?? Medications instructions below: [place] 600 mg AM, 900 mg HS [...] Visit (TeleHealth) Psychiatry [place] [address] Isaura García APRN [facility] [place] [address] documented as of this encounter Visit Diagnoses Diagnosis Bipolar affective disorder, currently depressed, moderate- Primary Bipolar I disorder, most recent episode (or current) depressed, moderate Alcohol use disorder, mild, abuse documented in this encounter Care Teams Marine Geologist Relationship Specialty Start Date End Date Virginie Gudino APRN [address] [place] [address] PCP - General Family Medicine 06/16/18 07/31/24 documented as of this encounter
--- OUTSIDE RECORDS SUMMARY | 2024-10-05 10:48 | XMS_ITS | Encounter Summary ---
Author Organization [facility] [place] [address] Care Team Providers Care Corn Crop Supervisor Name Role Phone Virginie Gudino APRN Primary Care Provider [phone] Encounter Details Date Type Department Care Team (Late st Contact Info) Description 09/29/2023 Telephone Psychiatry [place] [address] Gaviota Rehman RN Social History Tobacco Use [...] Telephone Encounter - Gaviota Rehman RN - 09/29/2023 1:[address] Sanders (pt's neurologist) due to VM left on nursing line. She was looking to make sure Nkechi kasey KEG RAISER aware of high lithium levels and looking for suggestions on medication changes. Called office, had to leave VM. Reported that pt and Nkechi are both aware of high lithium levels and that pt is aware of medication changes being made per Nkechi. Also relayed in VM the changes in meds which are 300mg in AM, 600 mg HS x4days and then 300mg BID from there on out. documented in this encounter Plan of Treatment Upcoming Encounters Date Type Department Care Team (Late st Contact Info) Description 11/09/2024 11:30 AM EST TH Visit (TeleHealth) Psychiatry [place] [address] Isaura García APRN [facility] [place] [address] documented as of this encounter Visit Diagnoses Not on filedocumented in this encounter Care Teams Corn Crop Supervisor Relationship Specialty Start Date End Date Virginie Gudino APRN [address] [facility] [place] [facility] [address] PCP - General Family Medicine 06/16/18 07/31/24 documented as of this encounter
--- OUTSIDE RECORDS SUMMARY | 2024-10-05 10:48 | XMS_ITS | Encounter Summary ---
Author Organization [facility] [place] [address] Care Team Providers Care Supervisor Steno Pool Name Role Phone Virginie Gudino DANNA Primary Care Provider [phone] Encounter Details Date Type Department Care Team (Late st Contact Info) Description 12/04/2022 [place] [phone] Laura Joseph APRN [facility] [place] [address] Social History Tobacco Use Types Packs/Day Years [...] encounter Miscellaneous Notes * Telephone Encounter - Laura Joseph APRN - 12/04/2022 12:41 PM EST After conversing with Dr. Guillaume at [facility] re: appropriate detox directions as Shireen had expressed interest while talking with Anika Alvarez, [facility] I called Shireen to review directions. I called her cell and was taken to voicemail; I did leave a detailed message and also emailed Shireen the following: I just left you a message on your cell. I spoke with the MD at [facility] as well as Anika. They relayed to me that you are on board to try a detoxification at home and because the schedule is weird at the addiction treatment program, we thought it would make sense for me to prescribe since I know you. If/when you are ready to stop drinking, I want it to go as smoothly as possible! I am thinki ng of doing a Librium taper to help with any sort of feelings of withdrawal. The taper would look like this: -Day 1: Librium 50 mg orally every 6 hours for 24 hours (4 doses) -Day 2: Librium 50 mg orally every 8 hours for 24 hours (3 doses) -Day 3: Librium 50 mg orally every 12 hours for 24 hours (2 doses) -Day 4: Librium 50 mg orally every 24 hours for 24 hours (1 dose) -Day 5: Stop Office information provided and I encouraged Shireen to call/email back. Prescription to be sent upon having a conversation with Shireen regarding current emotional/physical state and to ensure she will have support at home during this time. Laura Joseph APRN documented in this encounter Plan of Treatment Upcoming Encounters Date Type Department Care Team (Late st Contact Info) Description 11/09/2024 11:30 AM EST TH Visit (TeleHealth) Psychiatry [place] [address] Isaura García APRN [facility] [place] [address] documented as of this encounter Visit Diagnoses Not on filedocumented in this encounter Care Teams Supervisor Steno Pool Relationship Specialty Start Date End Date Virginie Gudino APRN [address] [place] [address] PCP - General Family Medicine 06/16/18 07/31/24 documented as of this encounter
--- OUTSIDE RECORDS SUMMARY | 2024-10-05 10:48 | XMS_ITS | Encounter Summary ---
[facility] [place] [address] Care Team Providers Care Medical Reception Name Role Phone MariettaVirginie ventura DANNA Primary Care Provider [phone] Encounter Details Date Type Department Care Team (Late st Contact Info) Description 09/14/2023 9:30 AM EDT TH Visit (TeleHealth) Psychiatry [place] [id number] Laura Joseph APRN [facility] [place] [address] Folate deficiency (Primary Dx); Long-term current use of lithium; *Moderate alcohol use disorder; Bipolar affective disorder, currently depressed, moderate Social [...] Progress Notes * Laura Joseph APRN - 09/14/2023 9:30 AM EDT Images from the original note were not included. ESTABLISHED ADULT PATIENT OFFICE VISIT NOTE Shireen Omaha gave permission for and was seen for today's appointment with a Video Office Visit. During this visit they were located in [place]. Shireen Silva is aware that for any urgent matter they can call [phone]. Time Spent: 30 minutes Attendee(s): Shireen Silva, Laura Joseph, PMHNP, Rossy Garcia, HEAD OF PRECISION TARGETING, PMHNP student Identifying information: Shireen Silva is a 58 y.o. female with history of Bipolar I disorder. Shetransferred to [facility] APRN from Dr. Villalobos March 2020. She is here for ongoing follow up. Chief Complaint: here for follow up History of Present Illness: () (Quality, Severity, Duration, Timing, Context, Modifying factors, Associated S&S) Psychiatric Symptoms: Went to ER 08/31 for confusion, falling, general instability. Thought it was due to Librium though ended up having a UTI. Admits to continued intermittent confusion and she sounds cognitively slower than normal. I feel like I am supposed to get some testing done. MRI ordered. Today was unable to get video working and when talking her through how to get into her portal, unable to remember correct username/password. Word finding difficulty. States he has not had alcohol since last night (unable to recall the amount). Admits to mild tremor, some GI upset. Had gotten labs when went to the ER though not visible in our health system. I wonder about [place] toxicity? She denies NSAIDS or overuse of [place]. She also states she is staying hydrated. Was able to review labs after our visit and her folate level was less than 200. Sleeping well. Trying not to drink water at night. helping around house and helping make dinners. Is working most days Relationships with son/ feel good right now-she continues to work with her son in decreasingtheir alcohol use Health Changes: New PCP-high cholesterol. Shireen not taking statin though is making changes to her diet/movement Work/Life/Family Updates: Difficulty with family-dad has been unwell-now in prison. Sister is nearby so that's helpful. Did go to [place] at the end of July. Youngest son will start working-[employer] Middle son-[place] Substance Use: Varies significantly; currently 'less than usual' (usually 1+ bottles of wine). States she is now drinking 1-1.5 small boxes of wine (feels this is a decrease, as of 02/09/23). Now about two glasses of wine daily (as of 05/2023) Safety: denies SI, denies HI. Denies SIB. Pertinent Medication Side Effects: denied Questionnaires: PHQ9 Questionnaires Data (Clinic and Pt Entered): last 4 values 02/08/2023 10:57 AM 04/05/2023 12:36 PM 06/08/2023 9:18 AM 07/25/2023 12:59 PM PHQ-9: Last 4 Responses PHQ - 9 Score 13 (Moderate Depression) 6 (Mild Depression) 8 (Mild Depression) PHQ - 9 Score (Pt Questionnaire) 6 (Mild Depression) 13 (Moderate Depression) 6 (Mild Depression) 8(Mild Depression) Little interest or pleasure Nearly every day Several Days More than half the days Little interest or pleasure (Pt Questionnaire) Several days Nearly every day Several Days More thanhalf the days Down, depressed, hopeless Nearly every day Several Days More than half the days Down, depressed, hopeless (Pt Questionnaire) Several days Nearly every day Several Days More than half the days Trouble sleeping Several days Not at all Several days Trouble sleeping (Pt Questionnaire) Several days Several days Not at all Several days Tired or no energy Nearly every day More than half the days More than half the days Tired or no energy (Pt Questionnaire) Several days Nearly every day More than half the days More than half the days Poor appetite or overeating Several days Several days Not at all Poor appetite or overeating (Pt Questionnaire) Not at all Several days Several days Not at all Feeling like a failure More than half the days Several Days Several Days Feeling like a failure (Pt Questionnaire) Several days More than half the days Several Days SeveralDays Trouble concentrating Not at all Not at all Not at all Trouble concentrating (Pt Questionnaire) Several days Not at all [...] all Not at all Not at all How difficult are the problems Somewhat difficult Somewhat difficult Somewhat difficult How difficult are the problems (Pt Questionnaire) Somewhat difficult Somewhat difficult Somewhat difficult Somewhat difficult How difficult are the problems (Pt Questionnaire-Adolescent) Somewhat difficult GAD7 Questionnaires Data: last 4 values 02/08/2023 10:57 AM 04/05/2023 12:36 PM 06/08/2023 9:18 AM 07/25/2023 12:59 PM MALVIN-7 Patient Reported Responses Nervous, anxious (Patient) Several days Not at all Not at all Not at all Unable to stop worrying (Patient) Not at all Several days Not at all Not at all Worrying about different things (Patient) Not at all Several days Not at all Not at all Trouble relaxing (Patient) Not at all Not at all Not at all Several days Restless (Patient) Not at all Not at all Not at all Not at all Easily annoyed, irritable (Patient) Several days Several days Not at all Not at all Afraid something awful will happen (Patient) Not at all Not at all Not at all Not at all Difficulty (Patient) Somewhat difficult Somewhat difficult Somewhat difficult Somewhat difficult MALVIN-7 Score (Patient) 2 (Minimal Anxiety) 3 (Minimal Anxiety) 0 (No Anxiety) 1 (Minimal Anxiety) Current Medications: Current Outpatient Medications Medication Sig Dispense Refill chlordiazePOXIDE (Librium) 25 mg capsule Take 2 capsules by mouth daily. As directed Day 1-50 mg every 6 hours for 24 hours Day 2-50 mg every 8 hours for 24 hours (3 doses) Day 3 -50 mg every 12 hours for 24 h(2 doses) Day 4-50 mg every 24 hours for 24 hours (1 dose) Day 5:Stop 20 capsule 0 LORazepam (Ativan) 0.5 mg tablet Take 1 tablet by mouth daily as needed for Anxiety. For high anxiety/panic. Do not mix with alcohol. 10 tablet 0 FLUoxetine (PROzac) 40 mg capsule Take 1 capsule by mouth daily. 30 capsule 3 mirtazapine (Remeron) 15 mg tablet Take 1 tablet by mouth nightly. 30 tablet 3 lithium CR (Lithobid) 300 mg ER tablet TAKE 2 TABLETS ORALLY EVERY MORNING AND 3 TABLETS EVERY EVENING 180 tablet 5 ferrous sulfate 324 mg (65 mg iron) [...] medications trials: Celexa Venlafaxine Fluoxetine Bupropion Risperidone [place] (current at 600 mg and 900 mg [...] System: no abnormal movements Mental Status Exam: Appearance: not seen (unable to work video today) Behavior:cooperative with evaluation, conversant though slow in response with word finding difficulty Speech: normal pitch, normal volume, normal rate and normal rhythm Language: fluent in tajik Mood: okay. Affect: not seen (unable to work video today) Thought Process: logical though quite slow Associations: intact Thought Content: Denies homicidal or suicidal ideation Perception: No reported auditory hallucinations at today's visit, Historically reports auditory hallucinations of music, sometimes people talking. Nothing negative. Orientation: grossly intact by interview Attention/Concentration: able to sustain focus and able to resist distraction Cognition: grossly intact by interview Memory: recent and remote memory grossly intact by interview Fund of Knowledge: appropriate for age and level of functioning Insight: fair Judgment: fair Labs: Psychiatry Labs: See uploaded results in [facility] (09/12/23) Lab Results Component Value Date TSH 1.74 [...] verbalizes depression as her baseline. She is not herself today, presenting with confusion, latent responses and is able to acknowledge that she's not at baseline. Labs were able to be obtained from our staffing operations manager from recent ED visit; Folate at 199 and no lithium labs were drawn. She does admit she started taking vitamin B. I did send in for lithium and she states she'll have her son or take her at some point this week. Encouraged continued folate supplementation. Safety Assessment: Shireen Silva denies suicidal ideation [...] increased urine output low blood pressure PLAN: Medications instructions below: [place] 600 mg AM, 900 mg HS Prozac 40 mg qd mirtazepine 15 mg HS Ativan 0.5 mg PRN for panic, high anxiety symptoms Librium 25 mg to 50 mg for alcohol withdrawal symptoms Additional treatment recommendations: Labs reviewed and lithium request sent to [facility] Patient Instruction/Education provided: Patient provided verbal instructions regarding medication side effects, safety plan in case of feeling unsafe. Patient understands the plan? Yes Laura Joseph APRN documented in this encounter Plan of Treatment Upcoming Encounters Date Type Department Care Team (Late st Contact Info) Description 11/09/2024 11:30 AM EST TH Visit (TeleHealth) Psychiatry [place] [address] Isaura García APRN [facility] [place] [address] documented as of this encounter Visit Diagnoses Diagnosis Folate deficiency- Primary Other B-complex deficiencies Long-term current use of lithium *Moderate alcohol use disorder Bipolar affective disorder, currently depressed, moderate Bipolar I disorder, most recent episode (or current) depressed, moderate documented in this encounter Care Teams Medical Reception Relationship Specialty Start Date End Date Virginie Gudino APRN [address] [place] [address] PCP - General Family Medicine 06/16/18 07/31/24 documented as of this encounter
--- OUTSIDE RECORDS SUMMARY | 2024-10-05 10:48 | XMS_ITS | Encounter Summary ---
Author Organization [facility] [place] [address] Care Team Providers Care Bite Block Maker Name Role Phone Virginie Gudino DANNA Primary Care Provider [phone] Reason for Visit * Reason Comments Medication Refill Encounter Details Date Type Department Care Team (Late st Contact Info) Description 04/06/2024 Refill Psychiatry [place] [address] Laura Joseph ADULT SPECIALIST [facility] [place] [address] Social History Tobacco Use Types Packs/Day Years [...] Telephone Encounter - Ly Evans CMA - 04/07/2024 12:23 PM EDT Prescription Renewal Request Name: Shireen [...] Tele-Health Visit Next Encounter in This Dept: Visit date not found Date of Last Refill (for each medication): 03/14/2024 -- Medication category requirements (labs etc): Lab result not required / not available Status of request: Pended No Known Allergies Ly Evans CMA 04/07/24 12:24 PM documented in this encounter Plan of Treatment Upcoming Encounters Date Type Department Care Team (Late st Contact Info) Description 11/09/2024 11:30 AM EST TH Visit (TeleHealth) Psychiatry [place] [address] Isaura García APRN [facility] [place] [address] documented as of this encounter Visit Diagnoses Not on filedocumented in this encounter Care Teams Bite Block Maker Relationship Specialty Start Date End Date Virginie Gudino APRN [address] [place] [address] PCP - General Family Medicine 06/16/18 07/31/24 documented as of this encounter
--- OUTSIDE RECORDS SUMMARY | 2024-10-05 10:48 | XMS_ITS | Encounter Summary ---
Author Organization [facility] [place] [address] Care Team Providers Care Cooler Supervisor Name Role Phone MariettaVirginie ventura DANNA Primary Care Provider [phone] Encounter Details Date Type Department Care Team (Late st Contact Info) Description 06/08/2023 9:30 AM EDT TH Visit (TeleHealth) Psychiatry [place] [phone] Laura Joseph APRN [facility] [place] [address] Bipolar I disorder with depression (Primary Dx); Long-term current use of lithium; Alcohol use disorder, mild, abuse Social History [...] Progress Notes * Laura Joseph APRN - 06/08/2023 9:30 AM EDT Images from the original note were not included. ESTABLISHED ADULT PATIENT OFFICE VISIT NOTE Shireen Fraziermadge gave permission for and was seen for today's appointment with a Video Office Visit. During this visit they were located in [place]. Shireen Ricardo is aware that for any urgent matter they can call [phone]. Time Spent: 30 minutes Attendee(s): Shireen Silva, Laura Joseph, [facility] Identifying information: Shireen Silva is a 58 y.o. female with history of Bipolar I disorder. Shetransferred to Zhanna Mistry APRN from Dr. Villalobos March 2020. She is here for ongoing follow up. Chief Complaint: here for follow up History of Present Illness: () (Quality, Severity, Duration, Timing, Context, Modifying factors, Associated S&S) Psychiatric Symptoms: Has discontinued sessions with Anika at [facility]-states she did have some good conversations but didn't see necessity to continue. New PCP-Sandy Gordon NP-met in April-connected well. Reviewed high choles. (Total 339) and didn't seemto discuss thyroid other than having an US. Encouraged Shireen to call to get US set up in setting of varied TSH/hypercalcemia. Sleep is improved with Remeron though has woken up with panic attacks x 2 and needed PRN Ativan. Asks about new rx for Ativan (has not used PRN in several months)-will send in #10. helping around house and helping make dinners. Relationships with son/ feel good right now-really proud of her son for his current stand onnot drinking ETOH Health Changes: New PCP-high cholesterol. Shireen not taking statin though is making changes to her diet/movement Work/Life/Family Updates: Family reunion in [place]-states they were there for about 10 days. Did take dog (this was stressful). It was nice to see the family. Did go on a wine tour with her SHERMAN but maintained control. She was able to complete her sublimation project on drinking vessels and states her family really like them. Son is now alcohol free-this is motivating for Shireen. Substance Use: Varies significantly; currently 'less than [...] (Clinic and Pt Entered): last 4 values 12/21/2022 1:06 PM 01/09/2023 9:29 AM 02/08/2023 10:57 AM 04/05/2023 12:36 PM PHQ-9: Last 4 Responses PHQ - 9 Score 13 (Moderate Depression) PHQ - 9 Score (Pt Questionnaire) 8 (Mild Depression) 7 (Mild Depression) 6 (Mild Depression) 13 (Moderate Depression) Little interest or pleasure Nearly every day Little interest or pleasure (Pt Questionnaire) Several days Several days Several days Nearly every day Down, depressed, hopeless Nearly every day Down, depressed, hopeless (Pt Questionnaire) Several days More than half the days Several days Nearly every day Trouble sleeping Several days Trouble sleeping (Pt Questionnaire) More than half the days Not at all Several days Several days Tired or no energy Nearly every day Tired or no energy (Pt Questionnaire) Several days Several days Several days Nearly every day Poor appetite or overeating Several days Poor appetite or overeating (Pt Questionnaire) Not at all Not at all Not at all Several days Feeling like a failure More than half the days Feeling like a failure (Pt Questionnaire) Several days More than half the days Several days More than half the days Trouble concentrating Not at all Trouble concentrating (Pt Questionnaire) Several days Several days Several days Not at all Moving or speaking slowly Not at all Moving or speaking slowly (Pt Questionnaire) Not at all Not at all Not at all Not at all Would be better off Not at all Would be better off (Pt Questionnaire) Several days Not at all Not at all Not at all How difficult are the problems Somewhat difficult How difficult are the problems (Pt Questionnaire) Somewhat difficult Somewhat difficult Somewhat difficult Somewhat difficult How difficult are the problems (Pt Questionnaire-Adolescent) Somewhat difficult Somewhat difficult Somewhat difficult GAD7 Questionnaires Data: last 4 values 12/21/2022 1:06 PM 01/09/2023 9:29 AM 02/08/2023 10:57 AM 04/05/2023 12:36 PM MALVIN-7 Patient Reported Responses Nervous, anxious [...] Not at all Several days Several days Afraid something awful will happen (Patient) Not at all Not at all Not at all Not at all Difficulty (Patient) Somewhat difficult Somewhat difficult Somewhat difficult Somewhat difficult MALVIN-7 Score (Patient) 2 (Minimal Anxiety) 2 (Minimal Anxiety) 2 (Minimal Anxiety) 3 (Minimal Anxiety) Current Medications: Current Outpatient Medications Medication Sig Dispense Refill mirtazapine (Remeron) 15 mg tablet Take 1 tablet by mouth nightly. 30 tablet 3 lithium CR (Lithobid) 300 mg ER tablet TAKE 2 TABLETS ORALLY EVERY MORNING AND 3 TABLETS EVERY EVENING 180 tablet 5 FLUoxetine (PROzac) 40 mg capsule TAKE ONE CAPSULE BY MOUTH EVERY DAY 30 capsule 3 ferrous sulfate 324 mg [...] medications trials: Celexa Venlafaxine Fluoxetine Bupropion Risperidone [place] (current at 600 mg and 900 mg daily) Oxcarbazepine Clonazepam Lorazepam Zolpidem (current at 5 mg nightly PRN insomnia) Eszopiclone Lurasidone 2017 - felt it made her mood [...] no abnormal movements Mental Status Exam: Appearance: well groomed Behavior:cooperative with evaluation, conversant Speech: normal pitch, normal volume, normal rate and normal rhythm Language: fluent in hungarian Mood: okay. Affect: bright, appropriately interactive Thought Process: linear and logical Associations: intact Thought Content: Denies homicidal or [...] depression as her baseline. She continues to make conscientious efforts to decrease alcohol intake and is finding benefit with increased partnership with her as well as younger son who has stopped ETOH use. She maintains direction in her harm reduction. We will repeat all labs in July to ensure care is provided for thyroid. Also suggested trying Lavon, an alcohol-free wine brand that she can utilize as she continues her alcohol reduction. Safety Assessment: Shireen Silva denies suicidal ideation [...] low blood pressure PLAN: Medications instructions below: [place] 600 mg AM, 900 mg HS Prozac 40 mg qd mirtazepine 15 mg HS Additional treatment recommendations: Therapy: LABS: Labs: WILL ORDER FOR SEPT. Patient Instruction/Education provided: Patient provided verbal instructions regarding medication side effects, safety plan in case of feeling unsafe. Patient understands the plan? Yes Signed By: Laura Joseph APRN 06/08/2023 documented in this encounter Plan of Treatment Upcoming Encounters Date Type Department Care Team (Late st Contact Info) Description 11/09/2024 11:30 AM EST TH Visit (TeleHealth) Psychiatry [place] [address] Isaura García APRN [facility] [place] [address] documented as of this encounter Visit Diagnoses Diagnosis Bipolar I disorder with depression- Primary Bipolar I disorder, most recent episode (or current) depressed, unspecified Long-term current use of lithium Alcohol use disorder, mild, abuse documented in this encounter Care Teams Cooler Supervisor Relationship Specialty Start Date End Date Terese Virginie, FILM READER [address] [place] [address] PCP - General Family Medicine 06/16/18 07/31/24 documented as of this encounter
--- OUTSIDE RECORDS SUMMARY | 2024-10-05 10:48 | XMS_ITS | Encounter Summary ---
Author Organization [facility] [place] [address] Care Team Providers Care Explosive Ordnance Disposal Technician Name Role Phone Virginie Gudino DANNA Primary Care Provider [phone] Encounter Details Date Type Department Care Team (Late st Contact Info) Description 12/08/2022 [place] [address] Laura Joseph APRN [facility] [place] [address] Social History Tobacco Use Types Packs/Day Years [...] Progress Notes * Laura Joseph APRN - 12/08/2022 1:51 PM EST Received 12/08 via email from Shireen: I have decided to try to start the librium taper tomorrow. My has the day off and I figured I would be able to contact you if I need. I picked up the Librium at the pharmacy. Do I take according to the schedule or only if I think I need it? In response, this provider wrote the following: I suggest taking if needed. If you start feeling mild symptoms of withdrawal (insomnia, shakiness,increased anxiety, GI upset, headache, sweating, palpitations) it would be appropriate to take a dose. If you are feeling tired/sedated then certainly hold the next dose. Our goal is to minimize escal ation of more moderate to severe symptoms like hallucinations, seizures, disorientation, tachycardia, high blood pressure. Keep me updated as you can and find activities that decrease cravings (ie: don't plan to make dinner as that is typically a trigger for you to imbibe). Laura Joseph APRN 12/08/2022 documented in this encounter Plan of Treatment Upcoming Encounters Date Type Department Care Team (Late st Contact Info) Description 11/09/2024 11:30 AM EST TH Visit (TeleHealth) Psychiatry [place] [address] Isaura García APRN [facility] [place] [address] documented as of this encounter Visit Diagnoses Not on filedocumented in this encounter Care Teams Explosive Ordnance Disposal Technician Relationship Specialty Start Date End Date Virginie Gudino APRN [address] [place] [address] PCP - General Family Medicine 06/16/18 07/31/24 documented as of this encounter
--- OUTSIDE RECORDS SUMMARY | 2024-10-05 10:48 | XMS_ITS | Encounter Summary ---
Author Organization [facility] [place] [address] Care Team Providers Care Fire Boat Engineer Name Role Phone MariettaVirginie ventura DANNA Primary Care Provider [phone] Encounter Details Date Type Department Care Team (Late st Contact Info) Description 06/30/2022 9:00 AM EDT TH Visit (TeleHealth) Psychiatry [place] [address] Laura Joseph [address]N [facility] [place] [address] Bipolar I disorder with depression (Primary Dx); Alcohol use disorder, mild, abuse [...] Progress Notes * Laura Joseph APRN - 06/30/2022 9:00 AM EDT ESTABLISHED ADULT PATIENT OFFICE VISIT NOTE Shireen Silva gave permission for and was seen for today's appointment with a Video Office Visit. During this visit they were located in [place]. Shireen Ricardo is aware that for any urgent matter they can call [phone]. Time Spent: 30 minutes Attendee(s): Shireen Silva, Laura Joseph, [facility] Identifying information: Shireen Silva is a 57 y.o. female with history of Bipolar I disorder. Shetransferred to Zhanna Mistry APRN from Dr. Villalobos March 2020. She is here for ongoing follow up. Chief Complaint: here for follow up History of Present Illness: () (Quality, Severity, Duration, Timing, Context, Modifying factors, Associated S&S) Psychiatric Symptoms: Had shingles and continues to experience pain associated with them; sleep was poor but getting better with healing Working with re: alcohol use. Finds it helpful though admits to being defensive at times. It does help to know that someone cares. Panic attacks at night-also had one in shower on Thursday. Does not want to rely on Ativan but finds it is most helpful. Review alternatives (petting Anna, talking to family, relaxing in shower) Health Changes: Had shingles-very painful and is healing Fresh food from garden and has been enjoying this Work/Life/Family Updates: Went to [place] in May-really enjoyed herself and her family (at most there were 10 people) Going to [place] to visit family at end of month Starting to think about RV shopping-may rent to help make a decision whether they should buy or not. Substance Use: Alcohol-about 3 glasses/night, more recently 1-2 glass of wine each night; was drinking a lot of [employer] hard lemonade Safety: denies SI, denies HI Pertinent Medication Side Effects: denied Questionnaires: PHQ9 Questionnaires Data (Clinic and Pt Entered): last 4 values PHQ-9 QUESTIONNAIRE LAST 4 VALUES (AMB) 02/06/2022 03/20/2022 05/16/2022 06/29/2022 PHQ - 9 Score (Patient) 7 (Mild Depression) 4 (Minimal Depression) 3 (Minimal Depression) 5 (Mild Depression) Little interest or pleasure (Patient) Several days Several days Several days Several days Down, depressed, hopeless (Patient) Several days Several days Several days Several days Trouble sleeping (Patient) Several days Not at all Not at all Several days Tired or no energy (Patient) Several days Several days Several days Several days Poor appetite or overeating (Patient) Not at all Not at all Not at all Not at all Feeling like a failure (Patient) Several days Several days Not at all Several days Trouble concentrating (Patient) Several days Not at all Not at all Not at all Moving or speaking slowly (Patient) Not at all Not at all Not at all Not at all Would be better off (Patient) Several days Not at all Not at all Not at all GAD7 Questionnaires Data: last 4 values MALVIN-7 Patient Reported Responses 02/06/2022 03/20/2022 05/16/2022 06/29/2022 Nervous, anxious (Patient) Several days Several days Several days Several days Unable to stop worrying (Patient) Several days Several days Several days Several days Worrying about different things (Patient) Several days Several days Several days Several days Trouble relaxing (Patient) Not at all Not at all Several days Not at all Restless (Patient) [...] difficult MALVIN-7 Score (Patient) 3 (Minimal Anxiety) 5 (Mild Anxiety) 4 (Minimal Anxiety) 3 (Minimal Anxiety) Current Medications: Current Outpatient Medications Medication Sig Dispense Refill ??? zolpidem (Ambien) 5 mg Tablet Take 0.5-1 tablets by mouth nightly as needed for Sleep. 30 tablet 3 ??? FLUoxetine (PROzac) 40 mg Capsule TAKE ONE CAPSULE BY MOUTH EVERY DAY 30 capsule 3 ??? lithium CR (Lithobid) 300 mg Tablet Sustained Release TAKE 2 TABLETS BY MOUTH EVERY MORNING ANDTAKE 3 TABLETS EVERY EVENING 150 tablet 5 ??? LORazepam (Ativan) 0.5 mg Tablet [...] trials: ?? Celexa ?Venlafaxine ?Fluoxetine ?Bupropion ?Risperidone ?[place] (current at 600 mg and 900 mg [...] and normal rhythm ?? Language: fluent in slovenian ?? Mood:pretty good. ?? Affect: full ?? [...] more recently mood has been good. She continues to work on decreasing her alcoholuse and does feel her is supportive and helpful. We will continue current medications at this time. Safety Assessment: Shireen Silva denies suicidal ideation [...] blood pressure PLAN: ?? Medications instructions below: [place] 600 mg AM, 900 mg HS Ambien 5 mg HS PRN Prozac 40 mg qd Ativan 0.5 mg PRN (last filled 11/19) ?? Additional treatment recommendations: Therapy: none at this time Labs: Plan for labs in early Dec 2022 Patient Instruction/Education provided: Patient provided verbal instructions regarding medication side effects, safety plan in case of feeling unsafe. Patient understands the plan? Yes Signed By: Laura Joseph APRN 06/30/2022 documented in this encounter Plan of Treatment Upcoming Encounters Date Type Department Care Team (Late st Contact Info) Description 11/09/2024 11:30 AM EST TH Visit (TeleHealth) Psychiatry [place] [address] Isaura García APRN [facility] [place] [address] documented as of this encounter Visit Diagnoses Diagnosis Bipolar I disorder with depression- Primary Bipolar I disorder, most recent episode (or current) depressed, unspecified Alcohol use disorder, mild, abuse documented in this encounter Care Teams Fire Boat Engineer Relationship Specialty Start Date End Date Virginie Gudino APRN [address] [place] [address] PCP - General Family Medicine 06/16/18 07/31/24 documented as of this encounter
--- OUTSIDE RECORDS SUMMARY | 2024-10-05 10:48 | XMS_ITS | Encounter Summary ---
Author Organization [facility] [place] [address] Care Team Providers Care Communications Equipment Operator Name Role Phone MariettaVirginie ventura DANNA Primary Care Provider [phone] Encounter Details Date Type Department Care Team (Late st Contact Info) Description 10/19/2023 9:30 AM EST TH Visit (TeleHealth) Psychiatry [place] [address] Laura Joseph APRN [facility] [place] [address] Long-term current use of lithium; Folate deficiency; *Moderate alcohol use disorder; Bipolar affective disorder, [...] Progress Notes * Laura Joseph APRN - 10/19/2023 9:30 AM EST Images from the original note were not included. ESTABLISHED ADULT PATIENT OFFICE VISIT NOTE Shireen Silva gave permission for and was seen for today's appointment with a Video Office Visit. During this visit they were located in [place]. Shireen Ricardo is aware that for any urgent matter they can call [phone]. Time Spent: 30 minutes Attendee(s): Shireen Silva, Laura Joseph, PMHNP, Rossy Garcia, OFFBEARER, PMHNP student Identifying information: Shireen Silva is [...] In review and further investigation she was [place] toxic and we made drastic changes to her lithium dosing (now 300 mg BID). Throughout that time of toxicity (at least 09/14 through 10/02) I was notified by [facility] neurologist about her toxic levels (she had been referred to see this neurologist due to her presentation)-most recent labs 10/05: Creatinine 1.2 [place] 1.1 (had been 1.5 on 09/[address] [facility] previously alerted me to a level of 1.8) Shireen is unsure of what caused this leap in lithium levels; does not feel like she was dehydrated (and states she was drinking less alcohol at the time). One cup of coffee, then water throughout the day. No NSAID use. Sleeping well at night. Does re-read [employer] blogs and appreciates much of what she reads Recently got together with a friend for coffee (Malick) Health Changes: Nov 03-Brain MRI at [facility] Taking B12, vitamin, Vitamin D Work/Life/Family Updates: Dad now in long-term. Shireen's sisters (one from [place]) and her mom will be taking Thanksgiving meal to him has been 'so good'-cooking, taking care of the house Has been doing some outdoor work and this feels good-took planters off the windowsills outside Youngest son working-[employer] Middle son-[place] Substance Use: Varies significantly; currently 'less than usual' (usually 1+ bottles of wine). States she is now drinking 1-1.5 small boxes of wine (feels this is a decrease, as of 02/09/23). Now about two glasses of wine daily (as of 09/2023) Safety: denies SI, denies HI. Denies SIB. Pertinent Medication Side Effects: denied Questionnaires: PHQ9 Questionnaires Data (Clinic and Pt Entered): last 4 values 04/05/2023 12:36 PM 06/08/2023 9:18 AM 07/25/2023 12:59 PM 09/11/2023 12:41 PM PHQ-9: Last 4 Responses PHQ - 9 Score 13 (Moderate Depression) 6 (Mild Depression) 8 (Mild Depression) 4 (Minimal Depression) PHQ - 9 Score (Pt Questionnaire) 13 (Moderate Depression) 6 (Mild Depression) 8 (Mild Depression) 4(Minimal Depression) Little interest or pleasure Nearly every day Several Days More than half the days Several Days Little interest or pleasure (Pt Questionnaire) Nearly every day Several Days More than half the days Several Days Down, depressed, hopeless Nearly every day Several Days More than half the days Several Days Down, depressed, hopeless (Pt Questionnaire) Nearly every day Several Days More than half the days Several Days Trouble sleeping Several days Not at all Several days Not at all Trouble sleeping (Pt Questionnaire) Several days Not at all Several days Not at all Tired or no energy Nearly every day More than half the days More than half the days Several Days Tired or no energy (Pt Questionnaire) Nearly every day More than half the days More than half the days Several Days Poor appetite or overeating Several days Several days Not at all Not at all Poor appetite or overeating (Pt Questionnaire) Several days Several days Not at all Not at all Feeling like a failure More than half the days Several Days Several Days Several Days Feeling like a failure (Pt Questionnaire) More than half the days Several Days Several Days SeveralDays Trouble concentrating Not at [...] problems Somewhat difficult Somewhat difficult Somewhat difficult Somewhat difficult How difficult are the problems (Pt Questionnaire) Somewhat difficult Somewhat difficult Somewhat difficult Somewhat difficult GAD7 Questionnaires Data: last 4 values No data to display Current Medications: Current Outpatient Medications Medication Sig Dispense Refill mirtazapine (Remeron) 15 mg tablet TAKE ONE TABLET BY MOUTH EVERY EVENING 30 tablet 3 chlordiazePOXIDE (Librium) 25 mg capsule Take 2 [...] capsule by mouth daily. 30 capsule 3 lithium CR (Lithobid) 300 [...] medications trials: Celexa Venlafaxine Fluoxetine Bupropion Risperidone [place] (current at 600 mg and 900 mg [...] abnormal movements Mental Status Exam: Appearance: well dressed, engaged, good hygiene Behavior:cooperative with evaluation, conversant, appropriately engaged Speech: normal pitch, normal volume, normal rate and normal rhythm Language: fluent in hungarian Mood: better. Affect: full, appropriate Thought Process: logical, WNL processing speed Associations: intact Thought Content: Denies homicidal or [...] who verbalizes depression as her baseline. She presents with clarity today and is nearing baseline in terms of cognition.She denies manic symptoms as well as overt depressive symptoms. We will continue [place] ER 300 mg BID at this time and recheck labs in the next few weeks. Safety Assessment: Shireen Silva denies suicidal ideation [...] low blood pressure PLAN: Medications instructions below: [place] ER 300 mg BID Prozac 40 mg qd mirtazepine 15 mg HS Ativan 0.5 mg PRN for panic, high anxiety symptoms Additional treatment recommendations: Labs reviewed and lithium request sent to [facility] Patient Instruction/Education provided: Patient provided verbal instructions regarding medication side effects, safety plan in case of feeling unsafe. Patient understands the plan? Yes Laura Joseph APRN documented in this encounter Plan of Treatment Upcoming Encounters Date Type Department Care Team (Late st Contact Info) Description 11/09/2024 11:30 AM EST TH Visit (TeleHealth) Psychiatry [place] [address] Isaura García APRN [facility] [place] [address] documented as of this encounter Visit Diagnoses Diagnosis Long-term current use of lithium Folate deficiency Other B-complex deficiencies *Moderate alcohol use disorder Bipolar affective disorder, currently depressed, moderate Bipolar I disorder, most recent episode (or current) depressed, moderate documented in this encounter Care Teams Communications Equipment Operator Relationship Specialty Start Date End Date Virginie Gudino APRN [address] [place] [address] PCP - General Family Medicine 06/16/18 07/31/24 documented as of this encounter
--- OUTSIDE RECORDS SUMMARY | 2024-10-05 10:48 | XMS_ITS | Encounter Summary ---
Author Organization [facility] [place] [address] Care Team Providers Care Platform Supervisor Name Role Phone MariettaVirginie ventura DANNA Primary Care Provider [phone] Reason for Visit * Reason Comments Medication Refill Encounter Details Date Type Department Care Team (Late st Contact Info) Description 05/12/2024 Refill Psychiatry [place] [id number] Laura Joseph TRANSCRIBING MACHINE MECHANIC [facility] [address] Social History Tobacco Use Types Packs/Day Years [...] Telephone Encounter - Ly Evans CMA - 05/12/2024 9:35 PM EDT Prescription Renewal Request Name: Shireen Silva : 1965 Prescription(s) Requested: Requested Prescriptions Pending Prescriptions Disp Refills lithium CR (Eskalith) 450 mg ER tablet [Pharmacy Med Name: LITHIUM CARBONATE ER 450 MG TB] 90 tablet 0 Sig: TAKE ONE TABLET BY MOUTH NIGHTLY DOSE DECREASED FROM 600MG Date of Encounter last in This Dept (If need an appointment send to secretaries to schedule): Barbara Ramos (Nurse Practitioner Student) Psychiatry Encounter Date: 03/28/2024 Tele-Health Visit Next Encounter in This Dept: 05/30/2024 Date of Last Refill (for each medication): 02/20/24 -- 90/0 Medication category requirements (labs etc): Lab Results Component Value Date LITHIUM 0.89 04/07/2019 NA 142 04/07/2019 BUN 21 (H) 04/07/2019 CREATININE 0.83 04/07/2019 TSH 1.74 04/07/2019 WBC 7.4 07/26/2018 CALCIUM 10.4 04/07/2019 Status of request: Pended No Known Allergies Ly Evans CMA 05/12/24 9:35 PM documented in this encounter Plan of Treatment Upcoming Encounters Date Type Department Care Team (Late st Contact Info) Description 11/09/2024 11:30 AM EST TH Visit (TeleHealth) Psychiatry [place] [address] Isaura García APRN [facility] [place] [address] documented as of this encounter Visit Diagnoses Not on filedocumented in this encounter Care Teams Platform Supervisor Relationship Specialty Start Date End Date Virginie Gudino, DANNA [address] [place] [address] PCP - General Family Medicine 06/16/18 07/31/24 documented as of this encounter
--- OUTSIDE RECORDS SUMMARY | 2024-10-05 10:48 | XMS_ITS | Encounter Summary ---
Author Organization [facility] [place] [address] Care Team Providers Care Measurement Superintendent Name Role Phone MariettaVirginie ventura DANNA Primary Care Provider [phone] Encounter Details Date Type Department Care Team (Late st Contact Info) Description 02/09/2023 9:30 AM EDT TH Visit (TeleHealth) Psychiatry [place] [phone] Laura Joseph APRN [facility] [place] [address] Bipolar I disorder with depression (Primary Dx); Alcohol use disorder, mild, abuse; Long-term current use of lithium Social History Tobacco Use Types Packs/Day Years [...] Progress Notes * Laura Joseph APRN - 02/09/2023 9:30 AM EDT Images from the original note were not included. ESTABLISHED ADULT PATIENT OFFICE VISIT NOTE Shireen Fraziermadge gave permission for and was seen for today's appointment with a Video Office Visit. During this visit they were located in [place]. Shireen Silva is aware that for any urgent matter they can call [phone]. Time Spent: 30 minutes Attendee(s): Shireen Silva, Laura Joseph, [facility] Identifying information: Shireen Silva is a 57 y.o. female with history of Bipolar I disorder. Shetransferred to Zhanna Mistry APRN from Dr. Villalobos March 2020. She is here for ongoing follow up. Chief Complaint: here for follow up History of Present Illness: () (Quality, Severity, Duration, Timing, Context, Modifying factors, Associated S&S) Psychiatric Symptoms: Continues engaging with Addiction Treatment [facility] at [facility]; meeting with Anika every week viatelephone (taking this week off due to dentist). Feels IOP is too much of a commitment but is finding counseling to be helpful. Continues to maintain that ultimate goal is to abstain and states that her biggest motivator is that she feels weight has increased because of alcohol use. Inquires about retrying Librium for detox-interested in trying again. Discuss to skip Remeron if taking Librium that night. Buying smaller boxes of wine-will drink 1-1 1/2 boxes of these starting around 4 or 5 pm. Denies excessive hangover or withdrawal symptoms; admits that I start looking at the clock early afternoon. Son cooking dinner, helping a bit too Was making dinner, sliced on mandolin No instances of SIB in over two months Sleep has been good with Remeron. Relationships with son/ feel good right now. Crafting-continues making mug designs. Will start making Easter cards-going to MD with Health Changes: Recent Labs (2/)-see media for full panel of results: Li: 1.0 Ca 10.2 Cr 1.2 TSH: 0.94 Free T4: 0.74 (L). Does have a multi-nodular cyst-PCP is aware. Admits to weight gain, skin dry, hair dry, feels unmotivated. Has PCP appointment first week of March with labs to be drawn at end of February. Dental appointment tomorrow-root canal scheduled Work/Life/Family Updates: Family supportive at this time Substance Use: Varies significantly; currently 'less than usual' (usually 1+ bottles of wine). States she is now drinking 1-1.5 small boxes of wine (feels this is a decrease, as of 02/09/23) Safety: denies SI, denies HI. Denies SIB. Pertinent Medication Side Effects: denied Questionnaires: PHQ9 Questionnaires Data (Clinic and Pt Entered): last 4 values 11/15/2022 11/29/2022 12/21/2022 01/09/2023 PHQ-9 QUESTIONNAIRE LAST 4 VALUES (AMB) PHQ - 9 Score (Patient) 5 (Mild Depression) 8 (Mild Depression) 7 (Mild Depression) Little interest or pleasure (Patient) Several days Several days Several days Down, depressed, hopeless (Patient) Several days Several days More than half the days Trouble sleeping (Patient) Not at all More than half the days Not at all Tired or no energy (Patient) Several days Several days Several days Poor appetite or overeating (Patient) Not at all Not at all Not at all Feeling like a failure (Patient) Several days Several days More than half the days Trouble concentrating (Patient) Not at all Several days Several days Moving or speaking slowly (Patient) Not at all Not at all Not at all Would be better off (Patient) Several days Several days Not at all Information is confidential and restricted. Go to Review Flowsheets to unlock data. Multiple values from one day are sorted in reverse-chronological order GAD7 Questionnaires Data: last 4 values 11/15/2022 11/29/2022 12/21/2022 01/09/2023 MALVIN-7 Patient Reported Responses Nervous, anxious (Patient) Several days Several days Several days Unable to stop worrying (Patient) Not at all Not at all Not at all Worrying about different things (Patient) Not at all Not at all [...] difficult MALVIN-7 Score (Patient) 3 (Minimal Anxiety) 2 (Minimal Anxiety) 2 (Minimal Anxiety) Information is confidential and restricted. Go to Review Flowsheets to unlock data. Multiple values from one day are sorted in reverse-chronological order Current Medications: Current Outpatient Medications Medication Sig [...] trials: ?? Celexa ?Venlafaxine ?Fluoxetine ?Bupropion ?Risperidone ?[place] (current at 600 mg and 900 mg daily) ?Oxcarbazepine ?Clonazepam ?Lorazepam ?Zolpidem (current at 5 mg nightly PRN insomnia) ?Eszopiclone ?Lurasidone 2016 - felt it made her mood [...] Appearance: well groomed ?? Behavior:cooperative with evaluation, more conversant and open (appears to be more comfortable in our therapeutic relationship) ?? Speech: normal pitch, normal volume, normal rate and normal rhythm ?? Language: fluent in nauruan ?? Mood: okay. ?? Affect: bright, appropriately [...] MALVIN who verbalizes depression as her baseline. Malick [facility] working with Anika. She is make conscientious efforts to distract herself from drinking excessively though is hesitant to engage in support beyond ATP/ 5D. She is cognizant of weight gain and feels alcohol is attributing to it; scheduled PCP visit for early March with labs right before. We will attempt the Librium taper again and Shireen is aware that she can call or email at any time if needed. Safety Assessment: Shireen Silva denies suicidal ideation [...] blood pressure PLAN: ?? Medications instructions below: [place] 600 mg AM, 900 mg HS Prozac 40 mg qd mirtazepine 7.5 mg HS Librium as follows if deciding to detoxify at home: -Day 1: Librium 50 mg orally every 6 hours for 24 hours (4 doses) -Day 2: Librium 50 mg orally every 8 hours for 24 hours (3 doses) -Day 3: Librium 50 mg orally every 12 hours for 24 hours (2 doses) -Day 4: Librium 50 mg orally every 24 hours for 24 hours (1 dose) -Day 5: Stop ?? Additional treatment recommendations: Therapy:continue with Anika at [facility]: get in April Labs: to get [...] Visit (TeleHealth) Psychiatry [place] [address] Isaura García APRN [facility] [place] [address] documented as of this encounter Visit Diagnoses Diagnosis Bipolar I disorder with depression- Primary Bipolar I disorder, most recent episode (or current) depressed, unspecified Alcohol use disorder, mild, abuse Long-term current use of lithium documented in this encounter Care Teams Measurement Superintendent Relationship Specialty Start Date End Date Virginie Gudino APRN [address] [place] [address] PCP - General Family Medicine 06/16/18 07/31/24 documented as of this encounter
--- OUTSIDE RECORDS SUMMARY | 2024-10-05 10:48 | XMS_ITS | Encounter Summary ---
Author Organization [facility] [place] [address] Care Team Providers Care Front Office Associate Name Role Phone Virginie Gudino DANNA Primary Care Provider [phone] Encounter Details Date Type Department Care Team (Late st Contact Info) Description 12/04/2022 [place] [phone] Laura Joseph APRN [facility] [place] [address] Social History Tobacco Use Types Packs/Day Years [...] Encounter - Laura Joseph APRN - 12/04/2022 1:17 PM EST 1:10 pm: Spoke with Shireen re: recommendations/Librium taper. She states she had a good evaluation/conversation with Anika yesterday at [facility] and was out of the house for much of the day. She verbalized that because she was not home around 4 pm (the time she usually starts drinking as she preps dinner), she had two glasses of wine (typically she has at least one bottle) and feels good about this reduction. She states she really hopes to keep cutting back, verbalizing that she feels unsure of 'how much I really need in terms of support with this'. YANELI johnson and Shireen remains open to the support she currently has from the mental health department. She states that she will message me if she does start the Librium taper (we reviewed indications and the complications of alcohol withdrawal). She has no history of complicated withdrawal, no history of withdrawal seizures or delirium tremens, no unstable medical problems, is not taking any substances that could have a dangerous interaction with benzodiazepines, has a stable living environment. Though unsure if she will start the taper, Shireen Ricardo and I discussed how if withdrawal symptoms emerge or worsen over the course of the detoxication she should go immediately to the nearest emergency department. I spoke about the potential impact Librium may have on alertness/sedation; she feels most comfortable if her is home if/when she starts the taper. We also discussed not taking any other medications than what is already prescribed to her at this time. Lastly,we discussed how detoxification is only the first step in a comprehensive recovery plan. Shireen and Dominick discussed the importance of getting into structured substance use disorder treatment and attending self-help meetings and at this time she is amenable to continuing her appointments with Anika(and this provider, with 5D follow up on 12/22/22). Laura Joseph APRN documented in this encounter Plan of Treatment Upcoming Encounters Date Type Department Care Team (Late st Contact Info) Description 11/09/2024 11:30 AM EST TH Visit (TeleHealth) Psychiatry [place] [address] Isaura García APRN [facility] [place] [address] documented as of this encounter Visit Diagnoses Not on filedocumented in this encounter Care Teams Front Office Associate Relationship Specialty Start Date End Date Virginie Gudino APRN [address] [facility] [place] [address] PCP - General Family Medicine 06/16/18 07/31/24 documented as of this encounter
--- OUTSIDE RECORDS SUMMARY | 2024-10-05 10:48 | XMS_ITS | Encounter Summary ---
Author Organization [facility] [place] [address] Care Team Providers Care Clerical Production Worker Name Role Phone Virginie Gudino APRN Primary Care Provider [phone] Encounter Details Date Type Department Care Team (Latest Contact Info) Description 11/29/2022 Travel Social History Tobacco Use Types Packs/Day [...] Visit (TeleHealth) Psychiatry [place] [address] Isaura García APRN [facility] [place] [address] documented as of this encounter Visit Diagnoses Not on filedocumented in this encounter Care Teams Clerical Production Worker Relationship Specialty Start Date End Date Virginie Gudino APRN [address] [place] [address] PCP - General Family Medicine 06/16/18 07/31/24 documented as of this encounter
--- OUTSIDE RECORDS SUMMARY | 2024-10-05 10:48 | XMS_ITS | Encounter Summary ---
Author Organization [facility] [place] [address] Care Team Providers Care Refiner Operator Name Role Phone Virginie Gudino APRN Primary Care Provider [phone] Encounter Details Date Type Department Care Team (Latest Contact Info) Description 12/13/2022 Travel Social History Tobacco Use Types Packs/Day [...] Visit (TeleHealth) Psychiatry [place] [address] Isaura García APRN [facility] [address] documented as of this encounter Visit Diagnoses Not on filedocumented in this encounter Care Teams Refiner Operator Relationship Specialty Start Date End Date Virginie Gudino APRN [address] [place] [address] PCP - General Family Medicine 06/16/18 07/31/24 documented as of this encounter
--- OUTSIDE RECORDS SUMMARY | 2024-10-05 10:48 | XMS_ITS | Encounter Summary ---
[facility] [place] [address] Care Team Providers Care Metal Mover Name Role Phone MariettaVirginie ventura DANNA Primary Care Provider [phone] Encounter Details Date Type Department Care Team (Late st Contact Info) Description 07/27/2023 9:30 AM EDT TH Visit (TeleHealth) Psychiatry [place] [phone] Laura Joseph APRN [facility] [place] [address] Long-term current use of lithium; *Severe alcohol use disorder; Bipolar affective disorder, currently [...] Progress Notes * Laura Joseph APRN - 07/27/2023 9:30 AM EDT Images from the original note were not included. ESTABLISHED ADULT PATIENT OFFICE VISIT NOTE Shireen Fraziermadge gave permission for and was seen for today's appointment with a Video Office Visit. During this visit they were located in [place]. Shireen Ricardo is aware that for any urgent matter they can call [phone]. Time Spent: 30 minutes Attendee(s): Shireen Silva, Laura Joseph, [facility] Identifying information: Shireen Silva is a 58 y.o. female with history of Bipolar I disorder. Shetransferred to Zhanna Mistry APRN from Dr. Villalobos March 2020. She is here for ongoing follow up. Chief Complaint: here for follow up History of Present Illness: () (Quality, Severity, Duration, Timing, Context, Modifying factors, Associated S&S) Psychiatric Symptoms: New PCP-Sandy Gordon NP. Had colonoscopy-wasn't able to drink ETOH for a few days and felt overly anxious-discussed the roleof ETOH and anxiety. Also educated use of lorazepam though she did not use. Sleeping well. Trying not to drink water at night. helping around house and helping make dinners. Relationships with son/ feel good right now-she continues to work with her son in decreasingtheir alcohol use Health Changes: New PCP-high cholesterol. Shireen not taking statin though is making changes to her diet/movement Work/Life/Family Updates: Dad is currently hospitalized and this is very stressful for Shireen (he's in [place]) Substance Use: Varies significantly; currently 'less than [...] (Clinic and Pt Entered): last 4 values 01/09/2023 9:29 AM 02/08/2023 10:57 AM 04/05/2023 12:36 PM 06/08/2023 9:18 AM PHQ-9: Last 4 Responses PHQ - 9 Score 13 (Moderate Depression) 6 (Mild Depression) PHQ - 9 Score (Pt Questionnaire) 7 (Mild Depression) 6 (Mild Depression) 13 (Moderate Depression) 6(Mild Depression) Little interest or pleasure Nearly every day Several Days Little interest or pleasure (Pt Questionnaire) Several days Several days Nearly every day Several Days Down, depressed, hopeless Nearly every day Several Days Down, depressed, hopeless (Pt Questionnaire) More than half the days Several days Nearly every day Several Days Trouble sleeping Several days Not at all Trouble sleeping (Pt Questionnaire) Not at all Several days Several days Not at all Tired or no energy Nearly every day More than half the days Tired or no energy (Pt Questionnaire) Several days Several days Nearly every day More than half thedays Poor appetite or overeating Several days Several days Poor appetite or overeating (Pt Questionnaire) Not at all Not at all Several days Several days Feeling like a failure More than half the days Several Days Feeling like a failure (Pt Questionnaire) More than half the days Several days More than half the days Several Days Trouble concentrating Not at all Not at all Trouble concentrating (Pt Questionnaire) Several days Several days Not at all Not at all Moving or speaking slowly Not at all Not at all Moving or speaking slowly (Pt Questionnaire) Not at all Not at all Not at all Not at all Would be better off Not at all Not at all Would be better off (Pt Questionnaire) Not at all Not at all Not at all Not at all How difficult are the problems Somewhat difficult Somewhat difficult How difficult are the problems (Pt Questionnaire) Somewhat difficult Somewhat difficult Somewhat difficult Somewhat difficult How difficult are the problems (Pt Questionnaire-Adolescent) Somewhat difficult Somewhat difficult GAD7 Questionnaires Data: last 4 values 01/09/2023 9:29 AM 02/08/2023 10:57 AM 04/05/2023 12:36 PM 06/08/2023 9:18 AM MALVIN-7 Patient Reported Responses Nervous, anxious (Patient) Several days Several days Not at all Not at all Unable to stop worrying (Patient) Not at all Not at all Several days Not at all Worrying about different things (Patient) Several days Not at all Several days Not at all Trouble relaxing (Patient) Not at all Not at all Not at all Not at all Restless (Patient) Not at all Not at all Not at all Not at all Easily annoyed, irritable (Patient) Not at all Several days Several days Not at all Afraid something awful will happen (Patient) Not at all Not at all Not at all Not at all Difficulty (Patient) Somewhat difficult Somewhat difficult Somewhat difficult Somewhat difficult MALVIN-7 Score (Patient) 2 (Minimal Anxiety) 2 (Minimal Anxiety) 3 (Minimal Anxiety) 0 (No Anxiety) Current Medications: Current Outpatient Medications Medication Sig Dispense Refill LORazepam (Ativan) 0.5 mg tablet Take 1 tablet by mouth daily as needed for Anxiety. For high anxiety/panic. Do not mix with alcohol. 10 tablet 0 mirtazapine (Remeron) 15 mg tablet Take 1 [...] medications trials: Celexa Venlafaxine Fluoxetine Bupropion Risperidone [place] (current at 600 mg and 900 mg [...] rate and normal rhythm Language: fluent in armenian Mood: okay. Affect: bright, appropriately interactive Thought [...] conscientious efforts to decrease alcohol intake and maintains direction in her harm reduction. We will repeat all labs in July to ensure care is provided for thyroid. Safety Assessment: Shireen Silva denies suicidal [...] low blood pressure PLAN: Medications instructions below: [place] 600 mg AM, 900 mg HS Prozac 40 mg qd mirtazepine 15 mg HS Ativan 0.5 mg PRN for panic, high anxiety symptoms Additional treatment recommendations: Therapy: LABS: Labs: WILL [...] Visit (TeleHealth) Psychiatry [place] [address] Isaura García APRN [facility] [place] [address] documented as of this encounter Visit Diagnoses Diagnosis Long-term current use of lithium *Severe alcohol use disorder Bipolar affective disorder, currently depressed, moderate Bipolar I disorder, most recent episode (or current) depressed, moderate documented in this encounter Care Teams Metal Mover Relationship Specialty Start Date End Date Virginie Gudino APRN [address] [place] [address] PCP - General Family Medicine 06/16/18 07/31/24 documented as of this encounter
--- OUTSIDE RECORDS SUMMARY | 2024-10-05 10:48 | XMS_ITS | Encounter Summary ---
Author Organization [facility] [place] [address] Care Team Providers Care Synthetic Filament Spinner Name Role Phone MariettaVirginie ventura DANNA Primary Care Provider [phone] Encounter Details Date Type Department Care Team (Late st Contact Info) Description 02/10/2022 11:00 AM EDT TH Visit (TeleHealth) Psychiatry [place] [phone] Laura Joseph APRN [facility] [place] [address] Bipolar affective disorder, currently depressed, mild (Primary [...] Progress Notes * Laura Joseph APRN - 02/10/2022 11:00 AM EDT ESTABLISHED ADULT PATIENT OFFICE VISIT NOTE Shireen Silva gave permission for and was seen for today's appointment with a Video Office Visit. During this visit they were located in [place]. Shireen Ricardo is aware that for any urgent matter they can call [phone]. Time Spent: 25 minutes Attendee(s): Shireen Silva [...] (glucose a bit high, otherwise no concerns) [place] 1.0 Really looking forward to walk this spring Trying to eat better-trying low carb Work/Life/Family Updates: New dog-Anna. Rescue dog from [place] My youngest son has really been helpful Going to [place] Substance Use: Alcohol-about 3 glasses/night but trying [...] as needed for Anxiety. 30tablet 0 ??? lithium CR (Lithobid) 300 mg [...] trials: ?? Celexa ?Venlafaxine ?Fluoxetine ?Bupropion ?Risperidone ?[place] (current at 600 mg and 900 mg [...] and normal rhythm ?? Language: fluent in hungarian ?? Mood:I'm okay. ?? Affect: full ?? [...] her alcohol intake and recognizes that her intake is excessive and does affect her mental health [...] blood pressure PLAN: ?? Medications instructions below: [place] 600 mg AM, 900 mg HS Ambien 2.5 mg-5 mg HS PRN Prozac 40 mg qd Ativan 0.5 mg PRN (last filled 4/21) ?? Additional treatment recommendations: Therapy: it's not [...] Visit (TeleHealth) Psychiatry [place] [address] Isaura García APRN [facility] [place] [address] documented as of this encounter Visit Diagnoses Diagnosis Bipolar affective disorder, currently depressed, mild- Primary Bipolar I disorder, most recent episode (or current) depressed, moderate Alcohol use disorder, mild, abuse documented in this encounter Care Teams Synthetic Filament Spinner Relationship Specialty Start Date End Date Virginie Gudino APRN [address] [place] [address] PCP - General Family Medicine 06/16/18 07/31/24 documented as of this encounter
--- OUTSIDE RECORDS SUMMARY | 2024-10-05 10:48 | XMS_ITS | Encounter Summary ---
Author Organization [facility] [place] [address] Care Team Providers Care Photography Editor Name Role Phone MariettaVirginie ventura DANNA Primary Care Provider [phone] Encounter Details Date Type Department Care Team (Late st Contact Info) Description 08/11/2022 9:00 AM EDT TH Visit (TeleHealth) Psychiatry and [place] [phone] Laura Joseph APRN [facility] [place] [address] Bipolar affective disorder, currently depressed, mild (Primary [...] Progress Notes * Laura Joseph APRN - 08/11/2022 9:00 AM EDT ESTABLISHED ADULT PATIENT OFFICE VISIT NOTE Shireen Silva gave permission for and was seen for today's appointment with a Video Office Visit. During this visit they were located in [place]. Shireen Ricardo is aware that for any urgent matter they can call [phone]. Time Spent: 30 minutes Attendee(s): Shireen Silva, Laura Joseph, PMHNP, Darby Cosby, PMHNP student Identifying information: Shireen Silva is a 57 y.o. female with history of Bipolar I disorder. Shetransferred to Zhanna Mistry APRN from Dr. Villalobos March 2020. She is here for ongoing follow up. Chief Complaint: here for follow up History of Present Illness: () (Quality, Severity, Duration, Timing, Context, Modifying factors, Associated S&S) Psychiatric Symptoms: Feels like anxiety has improved a bit since shingles has continued healing No panic attacks since our last appointment Alcohol use-1-2 glasses/night. One night had not had a drink and did feel so much better. Does not necessarily feel withdrawal symptoms but feels 'worse' when stress is higher Sleep has been overall good. 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; Shireen is out walking [facility] daily Middle son at [employer]ference in [place] this week Renting a RV later this month and going to [facility] to trial-going for three nights Substance Use: Alcohol-currently 1-2 glasses wine/nightly Safety: denies SI, denies HI Pertinent Medication Side Effects: denied Questionnaires: PHQ9 Questionnaires Data (Clinic and Pt Entered): last 4 values PHQ-9 QUESTIONNAIRE LAST 4 VALUES (AMB) 03/20/2022 05/16/2022 06/29/2022 08/10/2022 PHQ - 9 Score (Patient) 4 (Minimal Depression) 3 (Minimal Depression) 5 (Mild Depression) 3 (Minimal Depression) [...] failure (Patient) Several days Not at all Several days Not at all Trouble concentrating (Patient) Not at all Not at all Not at all Not at all Moving or speaking slowly (Patient) Not at all Not at all Not at all Not at all Would be better off (Patient) Not at all Not at all Not at all Not at all GAD7 Questionnaires Data: last 4 values MALVIN-7 Patient Reported Responses 03/20/2022 05/16/2022 06/29/2022 08/10/2022 Nervous, anxious (Patient) Several days Several days Several days Several days Unable to stop worrying (Patient) Several days Several days Several days Not at all Worrying about different things (Patient) Several days Several days Several days Not at all Trouble relaxing (Patient) Not at all Several days Not at all Not at all Restless (Patient) Not at all Not at all Not at all Not at all Easily annoyed, irritable (Patient) Several days Not at all Not at all Not at all Afraid something awful will happen (Patient) Several days Not at all Not at all Not at all Difficulty (Patient) Somewhat difficult Somewhat difficult Somewhat difficult Not difficult at all MALVIN-7 Score (Patient) 5 (Mild Anxiety) 4 (Minimal Anxiety) 3 (Minimal Anxiety) 1 (Minimal Anxiety) Current Medications: Current [...] trials: ?? Celexa ?Venlafaxine ?Fluoxetine ?Bupropion ?Risperidone ?[place] (current at 600 mg and 900 mg [...] abnormal movements Mental Status Exam: ?? Appearance: not seen, ?? Behavior: cooperative with the interview and good eye contact ?? Speech: normal pitch, normal volume, normal rate and normal rhythm ?? Language: fluent in greek ?? Mood:pretty good. ?? Affect: full ?? [...] and MALVIN who verbalizes depression as her baseline with a more consistent steady mood. She continues to work on maintaining a lower alcohol use We will continue current medications at this [...] blood pressure PLAN: ?? Medications instructions below: [place] 600 mg AM, 900 mg HS Ambien [...] plan? Yes Signed By: Laura Joseph APRN 08/11/2022 documented in this encounter Plan of Treatment Upcoming Encounters Date Type Department Care Team (Late st Contact Info) Description 11/09/2024 11:30 AM EST TH Visit (TeleHealth) Psychiatry and [place] [address] Isaura García APRN [facility] [address] documented as of this encounter Visit Diagnoses Diagnosis Bipolar affective disorder, currently depressed, mild- Primary Bipolar I disorder, most recent episode (or current) depressed, moderate Alcohol use disorder, mild, abuse documented in this encounter Care Teams Photography Editor Relationship Specialty Start Date End Date Virginie Gudino APRN [address] [place] [address] PCP - General Family Medicine 06/16/18 07/31/24 documented as of this encounter
--- OUTSIDE RECORDS SUMMARY | 2024-10-05 10:48 | XMS_ITS | Encounter Summary ---
Author Organization [facility] [place] [address] Care Team Providers Care Client Program Manager Name Role Phone Virginie Gudino APRN Primary Care Provider [phone] Encounter Details Date Type Department Care Team (Late st Contact Info) Description 09/29/2023 Telephone Psychiatry [place] [phone] Gaviota Rehman RN Social History Tobacco Use [...] Encounter - Gaviota Rehman RN - 09/29/2023 1:53 PM EDT Called patient to f/u since she left on nursing line. She reports she did get our message about her lithium medication changes and understands to take it as follows: 300mg AM, 600mg PM x 4 days Then 300mg BID thereafter. She reports she knows about her lithium levels as well. documented in this encounter Plan of Treatment Upcoming Encounters Date Type Department Care Team (Late st Contact Info) Description 11/09/2024 11:30 AM EST TH Visit (TeleHealth) Psychiatry [place] [address] Isaura García APRN [facility] [place] [address] documented as of this encounter Visit Diagnoses Not on filedocumented in this encounter Care Teams Client Program Manager Relationship Specialty Start Date End Date Virginie Gudino APRN [address] [facility] [place] [address] PCP - General Family Medicine 06/16/18 07/31/24 documented as of this encounter
--- OUTSIDE RECORDS SUMMARY | 2024-10-05 10:48 | XMS_ITS | Encounter Summary ---
[place] [address] Care Team Providers Care Paramedical Aide Name Role Phone Virginie Gudino APRN Primary Care Provider [phone] Encounter Details Date Type Department Care Team (Latest Contact Info) Description 12/03/2022 10:06 PM EST - 12/03/2022 11:59 PM EST Hospital [place] [phone] *Severe alcohol use disorder Discharge Disposition: Home Social History Tobacco Use Types Packs/Day Years [...] Sig Dispensed Refills Start Date End Date ferrous sulfate 324 mg (65 mg iron) Tablet, Delayed Release (E.C.) Take 324 mg by mouth. gabapentin (Neurontin) 300 mg Capsule Take 600 mg by mouth nightly. cetirizine (ZYRTEC) 10 mg tabletIndications:seas onal allergic rhinitis Take 10 mg by mouth daily. Reported on 03/23/2017 Indications: Seasonal Allergic Rhinitis pseudoephedrine (SUDAFED) 30 mg tablet Take 30 mg by mouth every 4 hours as needed. Reported on 03/23/2017 mirtazapine (Remeron) 15 mg Tablet Take 0.5 tablets by mouth nightly. 30 tablet 10/27/2022 12/22/2022 LORazepam (Ativan) 0.5 mg Tablet Take 1 tablet by mouth every 6 hours as needed for Anxiety. 30 tablet 10/09/2022 12/22/2022 lithium CR (Lithobid) 300 mg Tablet Sustained Release TAKE TWO TABLETS BY MOUTH EVERY MORNING AND TAKE THREE TABLETS EVERY EVENING 180 tablet 5 09/26/2022 05/28/2023 FLUoxetine (PROzac) 40 mg Capsule Take 1 capsule by mouth daily. 30 capsule 3 08/11/2022 12/22/2022 documented as of this encounter Plan of Treatment Upcoming Encounters Date Type Department Care Team (Late st Contact Info) Description 11/09/2024 11:30 AM EST TH Visit (TeleHealth) Psychiatry [place] [address] Isaura García APRN [facility] [place] [address] documented as of this encounter Procedures Procedure Name Priority Date/Time Associated Diagnosis Comments ALCOHOL BIOMARKERS CONFIRMATION Routine 12/03/2022 1:00 PM EST [facility] ALCOHOL BIOMARKERS, URINE Routine 12/03/2022 1:00 PM EST *Severe alcohol use disorder documented in this encounter Results * Alcohol Biomarkers Confirmation (12/03/2022 1:00 PM EST) Ethyl Glucuronide (MARCH) 8 Cutoff: 250 ng/mL [facility] Comment: Test Performed by: [facility] [place] [address] Bottling Attendant: Deonte Dalton M.D. Ph.D.; CLIA# [id number] Ethyl Sulfate (MARCH) 861 Cutoff: 100 ng/mL [facility] Comment: Test Performed by: [place] [address] Bottling Attendant: Deonte Dalton M.D. Ph.D.; CLIA# [id number] Ethyl Gluc/Sulfate Interpretation (MARCH) SEE COMMENTS [facility] Comment: Positive. A positive interpretation will be given if either the Ethyl Glucuronide result is > or = 250 ng/mL and/or the Ethyl Sulfate is > or = 100 ng/mL. A high positive (i.e., >1,000 ng/mL) may indicate: -Heavy drinking on the same day or previously (i.e., previous day or two). -Light drinking the same day A low positive (i.e., 500 - 1000 ng/mL) may indicate: -Previous heavy drinking (i.e., previous 1 - 3 days). -Recent light drinking (i.e., past 24 hours). -Recent intense extraneous exposure (i.e., within 24 hours or less). A very low positive (i.e., 100 - 500 ng/mL) may indicate: -Previous heavy drinking (i.e., 1-3 days) -Previous light drinking (i.e., 12 - 36 hours). -Recent extraneous exposure. ADDITIONAL INFORMATION This report is intended for use in clinical monitoring and management of patients. ??It is not intended for use in employment-related testing. This test was developed and its performance characteristics determined by [facility] in a manner consistent with CLIA requirements. This test has not been cleared or approved by the U.S. Food and Drug Administration. Test Performed by: [facility] - [address] [address] Bottling Attendant: Deonte Dalton M.D. Ph.D.; CLIA# [id number] Urine 12/03/2022 1:00 PM EST 12/04/2022 10:19 AM EST Narrative Resulting Agency Comment Spec In Lab Semaj Naik MD CHEMISTRY ORDERABLES [facility] [place] [address] * (ABNORMAL) Alcohol Biomarkers (12/03/2022 1:00 PM EST) Ethyl Glucuronide Screen (MARCH) SEE COMMENT(A ) Cutoff: 500 ng/mL [facility] Comment: RESULT: Presumptive Positive Drug confirmation to follow. ??Presumptive Positive means that the screening method is positive, but the test needs to be run by a confirmatory method. ADDITIONAL INFORMATION This test was developed and its performance characteristics determined by [facility] in a manner consistent with CLIA requirements. This test has not been cleared or approved by the U.S. Food and Drug Administration. Test Performed by: [facility] - [facility] [address] [place] [address] Bottling Attendant: Deonte Dalton M.D. Ph.D.; CLIA# [id number] Urine 12/03/2022 1:00 PM EST 12/04/2022 10:19 AM EST Narrative Resulting Agency Comment Spec In Lab Semaj Naik MD LAB SEND OUT ORDERAB LES Performing Organization Address City/State/[facility] Co de Phone Number [facility] [place] [address] documented in this encounter Visit Diagnoses Diagnosis *Severe alcohol use disorder documented in this encounter Care Teams Paramedical Aide Relationship Specialty Start Date End Date Virginie Gudino, DANNA [address] [place] [address] PCP - General Family Medicine 06/16/18 07/31/24 documented as of this encounter
--- OUTSIDE RECORDS SUMMARY | 2024-10-05 10:48 | XMS_ITS | Encounter Summary ---
Author Organization [place] [address] Care Team Providers Care Air Duct Mechanic Name Role Phone Terese Virginie CLAY Primary Care Provider [phone] Encounter Details Date Type Department Care Team (Late st Contact Info) Description 06/01/2023 Orders Only Psychiatry [place] [phone] Laura Joseph [facility] [place] [address] Social History Tobacco Use Types Packs/Day Years [...] Visit (TeleHealth) Psychiatry [place] [phone] sIaura García [facility] [place] [address] documented as of this encounter Visit Diagnoses Not on filedocumented in this encounter Care Teams Air Duct Mechanic Relationship Specialty Start Date End Date Virginie Gudino, VICE PRESIDENT [employer] [address] [facility] [place] [address] PCP - General Family Medicine 06/16/18 07/31/24 documented as of this encounter
--- OUTSIDE RECORDS SUMMARY | 2024-10-05 10:48 | XMS_ITS | Encounter Summary ---
Author Organization [facility] [place] [address] Care Team Providers Care Furnace Loader Name Role Phone MariettaVirginie ventura DANNA Primary Care Provider [phone] Encounter Details Date Type Department Care Team (Late st Contact Info) Description 12/07/2023 10:30 AM EST TH Visit (TeleHealth) Psychiatry and [place] [address] Laura Joseph APRN [facility] [place] [address] Bipolar affective disorder, currently depressed, moderate (Primary Dx); Rafael Gonzalez use; Long-term current use of lithium; *Moderate alcohol [...] Progress Notes * Laura Joseph APRN - 12/07/2023 10:30 AM EST ESTABLISHED ADULT PATIENT OFFICE VISIT NOTE Shireen Silva gave permission for and was seen for today's appointment with a Video Office Visit. During this visit they were located in [place]. Shireen Ricardo is aware that for any urgent matter they can call [phone]. Time Spent: 30 minutes Attendee(s): Shireen Silva, Laura Joseph, [facility] Identifying information: Shireen Silva is a 58 y.o. female with history of Bipolar I disorder. Shetransferred to Zhanna Mistry APRN from Dr. Villalobos March 2020. She is here for ongoing follow up. Chief Complaint: here for follow up History of Present Illness: () (Quality, Severity, Duration, Timing, Context, Modifying factors, Associated S&S) Psychiatric Symptoms: [place] some frustrations with plow person yesterday though her was able to smooth things overand Shireen was able to remain in control of her emotions. Sleeping 'okay' at night-some nights better than others. [place]le[place] in [place] Discuss the ease she was at when visiting this time. Will plan to see Malick lindquist soon When home in [place]-got to see her best friend from college. She's like my other half. Health Changes: Nov 03-Brain MRI at [facility]-unremarkable MRI results Taking B12, vitamin, Vitamin D Discuss getting updated labs-she will do at [facility] Work/Life/Family Updates: Dad now in senior care. Spent time [place] ( [place] difficultto see but appreciated the visits Maycol (eldest son) stays with father in law-not currently working Shireen spent time with her mom and really really enjoyed this; did not feel she needed to drink Noble is cooking a bit, son is cooking a bit. Shireen is planning more for weekly meals and this helpsher anxiety. Youngest son not working currently [facility] Substance Use: Varies significantly; currently 'less than [...] (Clinic and Pt Entered): last 4 values 07/25/2023 12:59 PM 09/11/2023 12:41 PM 10/18/2023 12:26 PM 10/29/2023 8:00 PM PHQ-9: Last 4 Responses PHQ - 9 Score 8 (Mild Depression) 4 (Minimal Depression) 6 (Mild Depression) 4 (Minimal Depression) PHQ - 9 Score (Pt Questionnaire) 8 (Mild Depression) 4 (Minimal Depression) 6 (Mild Depression) 4 (Minimal Depression) Little interest or pleasure More than half the days Several Days Several Days Several Days Little interest or pleasure (Pt Questionnaire) More than half the days Several Days Several Days Several Days Down, depressed, hopeless More than half the days Several Days Several Days Several Days Down, depressed, hopeless (Pt Questionnaire) More than half the days Several Days Several Days Several Days Trouble sleeping Several days Not at all Several days Not at all Trouble sleeping (Pt Questionnaire) Several days Not at all Several days Not at all Tired or no energy More than half the days Several Days Several Days Several Days Tired or no energy (Pt Questionnaire) More than half the days Several Days Several Days Several Days Poor [...] concentrating Not at all Not at all Several Days Not at all Trouble concentrating (Pt Questionnaire) Not at all Not at all Several Days Not at all Moving or speaking slowly [...] problems (Pt Questionnaire) Somewhat difficult Somewhat difficult GAD7 Questionnaires Data: last 4 values 10/18/2023 12:26 PM 10/29/2023 8:00 PM MALVIN-7 Responses Nervous, anxious Not at all Several days Unable to stop worrying Not at all Several days Worrying about different things Not at all Several days Trouble relaxing Not at all Not at all Restless Not at all Not at all Easily annoyed, irritable Not at all Several days Afraid something awful will happen Not at all Several days MALVIN-7 Score (Pt Questionnaire) 0 (No Anxiety) 5 (Mild Anxiety) MALVIN-7 Score 0 5 Current Medications: Current Outpatient Medications Medication Sig [...] medications trials: Celexa Venlafaxine Fluoxetine Bupropion Risperidone Rafael Gonzalez (current at 600 mg and 900 mg [...] In review and further investigation she was Rafael Gonzalez toxic and we made drastic changes to her lithium dosing (now 300 mg BID). Throughout that time of toxicity (at least 09/14 through 10/02) I was notified by [facility] neurologist about her toxic levels (she had been referred to see this neurologist due to her presentation)-most recent labs 10/05: Creatinine 1.2 Rafael Gonzalez 1.1 (had been 1.5 on 09/29 and [facility] previously alerted me to a level of 1.8) Shireen is unsure of what caused this leap in lithium levels; does not feel like she was dehydrated (and states she was drinking less alcohol at the time). Social History: She is to Noble of about 30 years. They have 3 sons (21, 25, 27). Her is retired from [employer]. She is on disability for B[employer]1. Notes growing up in family that didn't express emotions easily and she finds she internalizes things. Vitals (24hr Range): No data found. Musculoskeletal System: no abnormal movements Mental Status Exam: Appearance: well dressed, engaged, good hygiene Behavior:cooperative with evaluation, conversant, appropriately engaged Speech: normal pitch, normal volume, normal rate and normal rhythm Language: fluent in peruvian Mood: pretty good. Affect: full, appropriate Thought Process: logical, WNL [...] baseline. She presents with clarity today and was very much engaged in conversation. Shedenies manic symptoms as well as overt depressive symptoms. We will continue Rafael Gonzalez ER 300 mg BID at this time and recheck labs DAVID Safety Assessment: Shireen Silva denies suicidal ideation [...] low blood pressure PLAN: Medications instructions below: Rafael Gonzalez ER 300 mg BID Prozac 40 mg qd mirtazepine 15 mg HS Ativan 0.5 mg PRN for panic, high anxiety symptoms Additional treatment recommendations: Labs reviewed and lithium request sent to [facility] Patient Instruction/Education provided: Patient provided verbal instructions regarding medication side effects, safety plan in case of feeling unsafe. Patient understands the plan? Yes Laura Joseph APRN 12/07/2023 documented in this encounter Plan of Treatment Upcoming Encounters Date Type Department Care Team (Late st Contact Info) Description 11/09/2024 11:30 AM EST TH Visit (TeleHealth) Psychiatry and [place] [address] Isaura García APRN [facility] [place] [address] documented as of this encounter Visit Diagnoses Diagnosis Bipolar affective disorder, currently depressed, moderate- Primary Bipolar I disorder, most recent episode (or current) depressed, moderate Rafael Gonzalez use Encounter for long-term (current) use of other medications Long-term current use of lithium *Moderate alcohol use disorder documented in this encounter Care Teams Furnace Loader Relationship Specialty Start Date End Date Virginie Gudino APRN [address] [place] [address] PCP - General Family Medicine 06/16/18 07/31/24 documented as of this encounter
--- OUTSIDE RECORDS SUMMARY | 2024-10-05 10:48 | XMS_ITS | Encounter Summary ---
Author Organization [facility] [place] [address] Care Team Providers Care International Specialist Name Role Phone Virginie Gudino DANNA Primary Care Provider [phone] Reason for Visit * Reason Onset Date Comments Medication Refill 10/23/2023 Encounter Details Date Type Department Care Team (Late st Contact Info) Description 10/23/2023 Refill Psychiatry [place] [phone] Laura Joseph [facility] [place] [address] Social History Tobacco Use Types Packs/Day Years [...] Visit (TeleHealth) Psychiatry [place] [phone] Isaura García [facility] [place] [address] documented as of this encounter Visit Diagnoses Not on filedocumented in this encounter Care Teams International Specialist Relationship Specialty Start Date End Date Virginie Gudino, SAND TECHNICIAN [address] [place] [address] PCP - General Family Medicine 06/16/18 07/31/24 documented as of this encounter
--- OUTSIDE RECORDS SUMMARY | 2024-10-05 10:48 | XMS_ITS | Encounter Summary ---
Author Organization [facility] [place] [address] Care Team Providers Care Surface Hydrologist Name Role Phone MariettaVirginie ventura DANNA Primary Care Provider [phone] Encounter Details Date Type Department Care Team (Late st Contact Info) Description 11/02/2023 11:00 AM EST TH Visit (TeleHealth) Psychiatry [place] [address] Laura Joseph INTERNIST MEDICAL DOCTOR MD [facility] [place] [address] [place] toxicity, accidental or unintentional, subsequent encounter (Primary Dx); Long-term current use of lithium; *Moderate alcohol use disorder; Folate deficiency; Bipolar I disorder with depression Social History [...] as of this encounter Progress Notes * Rossy Garcia - 11/02/2023 11:00 AM EST ESTABLISHED ADULT PATIENT OFFICE VISIT NOTE Shireen Silva gave permission for and was seen for today's appointment with a Video Office Visit. During this visit they were located in [place]. Shireen Ricardo is aware that for any urgent matter they can call [phone]. Time Spent: 30 minutes Attendee(s): Shireen Silva, Laura Joseph, PMHNP, Rossy Garcia, [employer], PMHNP student Identifying information: Shireen Silva is a 58 y.o. female with history of Bipolar I disorder. Shetransferred to Zhanna Mistry APRN from Dr. Villalobos March 2020. She is here for ongoing follow up. Chief Complaint: I'm doing okay History of Present Illness: () (Quality, Severity, Duration, Timing, Context, Modifying factors, Associated S&S) Psychiatric Symptoms: Shireen reports she is doing okay. Denies diana, she has a little more energy than usual but denies racing thoughts, decreased need for sleep, or impulsivity. She reports a little depression, her dad is in group home due to parkinson's and dementia. Her mom still lives independently but getting up in age. She worries about them and she is so far away. Her sister and son does live close by and able to help out when needed. She had an episode of anxiety last week, she ran out of ativan. She got a refill and hasn't needed it. She reports anxiety stemmed from her son having difficulties with his current job. She was able to distract herself which helped her calm down. She is also a little anxious re: brain MRI tomorrow.PCP ordered MRI due to memory changes, Shireen reports forgetfulness and intermittent repetitiveness noted by people close to her. She has been sleeping well, appetite is good. She has been busy organizing the house and making homemade zechariah cards using a cricut machine. She and her are going to [place] for [employer]. She reports cutting back with alcohol intake. She is only drinking 2 glasses of wine nightly and tries to spread it out the evening rather than chugging in the past. She knows it's not good for herbut she can't stop. She enjoys drinking in the evenings. She does try to water it down with ice andhas used non- alcoholic wine at times. She expressed some mind clarity with decrease use. Shireen reports no issues with medication intake. Last lithium level 0.8 (10/05/2023) Health Changes: Nov 03-Brain MRI at [facility] Taking B12, vitamin, Vitamin D Work/Life/Family Updates: Dad now in group home. Shireen and her will be visiting during [place] has been 'so good'-cooking, taking care of the house Youngest son working-[employer] Middle son-[place] Substance Use: Varies significantly; currently 'less than [...] medications trials: Celexa Venlafaxine Fluoxetine Bupropion Risperidone [place] (current at 600 mg and 900 mg [...] engaged, good hygiene Behavior:cooperative with evaluation, conversant, makes good eye contact Speech: normal pitch, normal volume, normal rate and normal rhythm Language: fluent in mohawk Mood: I'm good. Affect: full, appropriate Thought Process: logical, [...] 58 y.o. female with AUD, BPAD and MALVIN. She denies diana andverbalized minimal depressive and anxiety symptoms. She is undergoing work up for mild cognitive impairment through her PCP, she reports forgetfulness and intermittent observed repetitiveness. She has some awareness of the negative effects of alcohol but she is unable to abstain completely. She is working on cutting back as much as able. Her lithium level is back to therapeutic range, will continue current regimen. Safety Assessment: Shireen Silva denies suicidal ideation [...] low blood pressure PLAN: Medications instructions below: [place] ER 300 mg BID Prozac 40 mg qd mirtazepine 15 mg HS Ativan 0.5 mg PRN for panic, high anxiety symptoms Additional treatment recommendations: Labs: none at this time Next visit: December 07, 2023 at 10:30AM Patient Instruction/Education provided: Patient provided verbal instructions regarding medication side effects, safety plan in case of feeling unsafe. Patient understands the plan? Yes Rossy KESSLER-C,, PMHNP Student This visit was performed jointly with student Rossy Garcia, [employer], PMHNP student The patient???s history was validated in the patient???s presence and is notable for Bipolar I disorder. She had recent lithium toxicity (09/21) and at current dosing of [place] ER 300 mg BID feels stable (maintaining adequate sleep, a bit more energy though seems appropriate with current activities of crafting and making holiday cards, denies impulsivity/feeling distracted. Somewhat less alcoholintake). I personally reviewed all applicable documented studies and diagnostic images. The assessment and plan was formulated at my direction, in summary 58 y.o. female on lithium therapy as well as Prozac 40 mg and mirtazepine 15 mg HS to help with sleep. Ativan very infrequently, PRNappropropriate. Currently maintaining stability with [place] 300 mg BID. [facility] Plan to meet after the holidays for follow up though encouraged Shireen to reach out ifneeded prior to. Laura Joseph APRN documented in this encounter Plan of Treatment Upcoming Encounters Date Type Department Care Team (Late st Contact Info) Description 11/09/2024 11:30 AM EST TH Visit (TeleHealth) Psychiatry [place] [address] Isaura García APRN [facility] [address] documented as of this encounter Visit Diagnoses Diagnosis [place] toxicity, accidental or unintentional, subsequent encounter- Primary Long-term current use of lithium *Moderate alcohol use disorder Folate deficiency Other B-complex deficiencies Bipolar I disorder with depression Bipolar I disorder, most recent episode (or current) depressed, unspecified documented in this encounter Care Teams Surface Hydrologist Relationship Specialty Start Date End Date Virginie Gudino APRN [address] [place] [address] PCP - General Family Medicine 06/16/18 07/31/24 documented as of this encounter
--- OUTSIDE RECORDS SUMMARY | 2024-10-05 10:48 | XMS_ITS | Encounter Summary ---
Author Organization [facility] [place] [address] Care Team Providers Care Certified Juvenile Probation Officer Name Role Phone Virginie Gudino DANNA Primary Care Provider [phone] Reason for Visit * Reason Onset Date Comments Medication Refill 07/28/2023 Encounter Details Date Type Department Care Team (Late st Contact Info) Description 07/28/2023 Refill Psychiatry [place] [phone] Laura Joseph [facility] [place] [address] Social History Tobacco Use Types Packs/Day Years [...] Visit (TeleHealth) Psychiatry [place] [phone] Isaura García [facility] [place] [address] documented as of this encounter Visit Diagnoses Not on filedocumented in this encounter Care Teams Certified Juvenile Probation Officer Relationship Specialty Start Date End Date Virginie Gudino, LIFTER DRIVER [address] [place] [address] PCP - General Family Medicine 06/16/18 07/31/24 documented as of this encounter
--- OUTSIDE RECORDS SUMMARY | 2024-10-05 10:48 | XMS_ITS | Encounter Summary ---
Author Organization [facility] [place] [address] Care Team Providers Care Accredited Legal Secretary Name Role Phone Virginie Gudino DANNA Primary Care Provider [phone] Encounter Details Date Type Department Care Team (Late st Contact Info) Description 10/02/2023 Notes Only Psychiatry [place] [address] Laura Joseph [facility] [place] [address] Social History Tobacco Use Types Packs/Day Years [...] Progress Notes * Laura Joseph APRN - 10/02/2023 1:54 PM EDT I spoke to Shireen today to reiterate need for updated labs. She remains latent in speech though does have coherent thought process. Last lithium level drawn per Dr. Sanders at [facility] was 1.5 (09/29).I reminded Shireen to drop her lithium to 300 mg BID tomorrow and to get labs today or DAVID. She said she drove once this week and I recommended she not drive due to confusion and delayed reaction time. She will talk to her when he gets home from work re: labs. I plan to call Shireen on Thursday orThursday to check in. Recommended increasing water intake and continue eating throughout the day. Laura Joseph APRN 1:57 PM documented in this encounter Plan of Treatment Upcoming Encounters Date Type Department Care Team (Late st Contact Info) Description 11/09/2024 11:30 AM EST TH Visit (TeleHealth) Psychiatry [place] [address] Isaura García APRN [facility] [place] [address] documented as of this encounter Visit Diagnoses Not on filedocumented in this encounter Care Teams Accredited Legal Secretary Relationship Specialty Start Date End Date Virginie Gudino APRN [address] [place] [address] PCP - General Family Medicine 06/16/18 07/31/24 documented as of this encounter
--- OUTSIDE RECORDS SUMMARY | 2024-10-05 10:48 | XMS_ITS | Encounter Summary ---
Author Organization [facility] [place] [address] Care Team Providers Care Marine Extension Agent Name Role Phone MariettaVirginie ventura DANNA Primary Care Provider [phone] Encounter Details Date Type Department Care Team (Late st Contact Info) Description 10/27/2022 9:00 AM EST TH Visit (TeleHealth) Psychiatry [place] [address] Laura Joseph APRN [facility] [place] [address] Bipolar I disorder with depression (Primary Dx); [...] Progress Notes * Laura Joseph APRN - 10/27/2022 9:00 AM EST ESTABLISHED ADULT PATIENT OFFICE VISIT NOTE Shireen Silva gave permission for and was seen for today's appointment with a Video Office Visit. During this visit they were located in [place]. Shireen Ricardo is aware that for any urgent matter they can call [phone]. Time Spent: 30 minutes Attendee(s): Shireen Silva, Laura Joseph, [facility] Identifying information: Shireen Silva is a 57 y.o. female with history of Bipolar I disorder. Shetransferred to [facility] APRN from Dr. Villalobos March 2020. She is here for ongoing follow up. Chief Complaint: here for follow up History of Present Illness: () (Quality, Severity, Duration, Timing, Context, Modifying factors, Associated S&S) Psychiatric Symptoms: Admits to increased depression. A bit unkempt today though engaged as usual. Mood usually: I can get feeling overwhelmed and not having a lot of energy: Panic attack last night before bed. Has been having them overnight. Drinking quite a bit-late afternoon starts drinking-unable to quantify how much I kind of realize on one level that drinking doesn't help. But on the other hand it's my only step outside of reality. is concerned, kids are concerned. She states she's brought up rehab to him though per Jenna does not feel that Shireen needs that level of care. Shireen and I discuss options in [place] and will sendher the [employer] resource guide (https://www.[employer].org/wp-content/uploads//SB-Letfbmvg-Hzgul- 2021.pdf) as well as the [employer] link. Review in depth the use of zolpidem in general as well as in conjunction with daily alcohol use. Review the significant adverse effects including difficulty with memory, coordination, and sedation. Health Changes: Shingles-feels she may have a small area on her back but also feels it could be her anxiety that exacerbates this area and increases the propensity to scratch Work/Life/Family Updates: Youngest son not working (has not since summer). Middle son at [employer] Will go to [place] for [employer] Went to [facility] in [facility] in June. Had a good time with her . Went for three nights Substance Use: Alcohol-currently 1-2 glasses wine/nightly Safety: denies SI, denies HI. I don't but I did have a very bad night on Thursday.. I told my I wish I could commit suicide Pertinent Medication Side Effects: denied Questionnaires: PHQ9 Questionnaires Data (Clinic and Pt Entered): last 4 values PHQ-9 QUESTIONNAIRE LAST 4 VALUES (AMB) 05/16/2022 06/29/2022 08/10/2022 10/21/2022 PHQ - 9 Score (Patient) 3 (Minimal Depression) 5 (Mild Depression) 3 (Minimal Depression) 16 (Moderately Severe Depression) Little interest or pleasure (Patient) Several days Several days Several days More than half the days Down, depressed, hopeless (Patient) Several days Several days Several days More than half the days Trouble sleeping (Patient) Not at all Several days Not at all More than half the days Tired or no energy (Patient) Several days Several days Several days More than half the days Poor appetite or overeating (Patient) Not at all Not at all Not at all More than half the days Feeling like a failure (Patient) Not at all Several days Not at all More than half the days Trouble concentrating (Patient) Not at all Not at all Not at all More than half the days Moving or speaking slowly (Patient) Not at all Not at all Not at all Several days Would be better off (Patient) Not at all Not at all Not at all Several days GAD7 Questionnaires Data: last 4 values MALVIN-7 Patient Reported Responses 05/16/2022 06/29/2022 08/10/2022 10/21/2022 Nervous, anxious (Patient) Several days Several days Several days More than half the days Unable to stop worrying (Patient) Several days Several days Not at all More than half the days Worrying about different things (Patient) Several days Several days Not at all More than half the days Trouble relaxing (Patient) Several days Not at all Not at all More than half the days Restless (Patient) Not at all Not at all Not at all Several days Easily annoyed, irritable (Patient) Not at all Not at all Not at all Several days Afraid something awful will happen (Patient) Not at all Not at all Not at all More than half the days Difficulty (Patient) Somewhat difficult Somewhat difficult Not difficult at all Somewhat difficult MALVIN-7 Score (Patient) 4 (Minimal Anxiety) 3 (Minimal Anxiety) 1 (Minimal Anxiety) 12 (Moderate Anxiety) Current Medications: Current Outpatient Medications Medication Sig Dispense Refill ??? LORazepam (Ativan) 0.5 mg Tablet Take 1 tablet by mouth every 6 hours as needed for Anxiety. 30tablet 0 ??? zolpidem (Ambien) 5 mg Tablet Take 0.5-1 tablets by mouth nightly as needed for Sleep. 30 tablet 3 ??? lithium CR (Lithobid) 300 mg Tablet Sustained Release TAKE TWO TABLETS BY MOUTH EVERY MORNING AND TAKE THREE TABLETS EVERY EVENING 180 tablet 5 ??? FLUoxetine (PROzac) 40 mg Capsule Take 1 capsule by mouth daily. 30 capsule 3 ??? ferrous sulfate 324 mg (65 mg [...] trials: ?? Celexa ?Venlafaxine ?Fluoxetine ?Bupropion ?Risperidone ?[place] (current at 600 mg and 900 mg [...] (21, 25, 27). Her is retired from [email or web address]. She is on disability for [employer]. Notes growing up in family that didn't express emotions easily she can internalize things. Vitals (24hr Range): No data found. Musculoskeletal System: no abnormal movements Mental Status Exam: ?? Appearance: disheveled, tired appearing ?? Behavior: cooperative with the interview and good eye contact ?? Speech: normal pitch, normal volume, normal rate and normal rhythm ?? Language: fluent in ukrainian ?? Mood:'m not doing good. ?? Affect: full ?? Thought Process: linear and logical ?? Associations: intact ?? Thought Content: Denies homicidal or suicidal ideation, does endorse hx passive SI without plan.Today states that she verbalized feeling suicidal on Thursday night (was intoxicated) but provided emotional support and this thought was relieved ?? Perception: No reported auditory hallucinations at [...] well as daily functioning and she acknowledges this. Naltrexone not tolerated in the past. We discuss increasing gabapentin though she is weary of this. She is open to resources as well as stopping zolpidem and tryingmirtazepine for sleep. Safety Assessment: Shireen Silva denies suicidal ideation [...] blood pressure PLAN: ?? Medications instructions below: [place] 600 mg AM, 900 mg HS Prozac 40 mg qd Ativan 0.5 mg PRN (last filled 11/19) mirtazepine 7.5 mg HS ?? Additional treatment recommendations: Therapy: none at this time Labs: Plan for labs in early Dec 2022 Patient Instruction/Education provided: Patient provided verbal instructions regarding medication side effects, safety plan in case of feeling unsafe. Patient understands the plan? Yes Signed By: Laura Joseph APRN 10/27/2022 documented in this encounter Plan of Treatment Upcoming Encounters Date Type Department Care Team (Late st Contact Info) Description 11/09/2024 11:30 AM EST TH Visit (TeleHealth) Psychiatry [place] [address] Isaura García APRN [facility] [place] [address] documented as of this encounter Visit Diagnoses Diagnosis Bipolar I disorder with depression- Primary Bipolar I disorder, most recent episode (or current) depressed, unspecified Alcohol use disorder, mild, abuse documented in this encounter Care Teams Marine Extension Agent Relationship Specialty Start Date End Date Virginie Gudino, DANNA [address] [facility] [place] [address] PCP - General Family Medicine 06/16/18 07/31/24 documented as of this encounter
--- OUTSIDE RECORDS SUMMARY | 2024-10-05 10:48 | XMS_ITS | Encounter Summary ---
Author Organization [facility] [place] [address] Care Team Providers Care Marketing Project Manager Name Role Phone Virginie Gudino DANNA Primary Care Provider [phone] Encounter Details Date Type Department Care Team (Late st Contact Info) Description 12/12/2022 [place] [address] Laura Joseph APRN [facility] [place] [address] Social History Tobacco Use Types Packs/Day Years [...] Progress Notes * Laura Joseph APRN - 12/12/2022 10:02 AM EST Messaged from Shireen received via email on 12/11/22 at 12:30 pm Just an update so far. Day 1 I took one dose (50 mg) in the early afternoon. My son made dinner. Iwalked the dog and worked on my crafting. It went ok. Day 2, I slept really late for me (10:30). That resulted in my day being out of sorts. I didn't take the meds until 2:00. My evening was not easybut I did a short walk and just sat on the couch. I didn't feel like the meds helped much. But also didn't have much help at home. I told my family that I was going to do whatever I had to for myselfto do better. I don't think they get it. I felt like after the first day they thought all was ok.I am healed after one day. (eye roll) Today I got up late again but not so bad. I took a dose of meds at 10. I feel better now and will work on my crafts again. The kitchen is a mess but I am determined to not deal with it. That is whereI get into trouble. Start feeling resentful, depressed and angry. I will do another dose of meds if needed late afternoon. I hope to go to one dose tomorrow. I am worried about doing too much of it. No alcohol so far and there is none in the house. I am starting to feel better about not drinking and don't really want it. Thank you for your support! Shireen Another quick question. If I have a panic attack, do I still take an Ativan or should the Librium help it? My response was as follows: Chidi Iyer-the Librium should help with feelings of panic, so good question but don???t take Ativan! Both will really sedate you if taken together. ???I told my family that I was going to do whatever I had to for myself to do better?? -Shireen this is huge! You are spot on in your outlook and I cannot agree more. And they may not ???get it??? and that???s okay. It makes it a bit harder, but only you know how you truly feel with and without alcohol and the effects it has on you. I???m here and you???ve got Anika on Thursday at 1. documented in this encounter Plan of Treatment Upcoming Encounters Date Type Department Care Team (Late st Contact Info) Description 11/09/2024 11:30 AM EST TH Visit (TeleHealth) Psychiatry [place] [address] Isaura García APRN [facility] [place] [address] documented as of this encounter Visit Diagnoses Not on filedocumented in this encounter Care Teams Marketing Project Manager Relationship Specialty Start Date End Date Virginie Gudino APRN [address] [place] [address] PCP - General Family Medicine 06/16/18 07/31/24 documented as of this encounter
--- OUTSIDE RECORDS SUMMARY | 2024-10-05 10:48 | XMS_ITS | Encounter Summary ---
Author Organization [facility] [place] [address] Care Team Providers Care Final Touch Up Painter Name Role Phone Terese Virginie CLAY Primary Care Provider [phone] Encounter Details Date Type Department Care Team (Late st Contact Info) Description 08/21/2023 Orders Only Psychiatry [place] [address] [facility] [place] [address] Social History Tobacco Use Types Packs/Day Years [...] Visit (TeleHealth) Psychiatry [place] [address] Isaura García [facility] [place] [address] documented as of this encounter Visit Diagnoses Not on filedocumented in this encounter Care Teams Final Touch Up Painter Relationship Specialty Start Date End Date Virginie Gudino, WORM PACKER [address] [place] [address] PCP - General Family Medicine 06/16/18 07/31/24 documented as of this encounter
--- OUTSIDE RECORDS SUMMARY | 2024-10-05 10:48 | XMS_ITS | Encounter Summary ---
Author Organization [facility] [place] [address] Care Team Providers Care Dependency Program Director Name Role Phone Virginie Gudino DANNA Primary Care Provider [phone] Reason for Visit * Reason Onset Date Comments Medication Refill 06/09/2022 Encounter Details Date Type Department Care Team (Late st Contact Info) Description 06/09/2022 Refill Psychiatry [place] [address] Laura Joseph [facility] [place] [address] Social History Tobacco Use Types Packs/Day Years [...] Visit (TeleHealth) Psychiatry [place] [address] Isaura García [facility] [place] [address] documented as of this encounter Visit Diagnoses Not on filedocumented in this encounter Care Teams Dependency Program Director Relationship Specialty Start Date End Date Virginie Gudino, KILN PACKER [address] [place] [address] PCP - General Family Medicine 06/16/18 07/31/24 documented as of this encounter
--- OUTSIDE RECORDS SUMMARY | 2024-10-05 10:48 | XMS_ITS | Encounter Summary ---
Author Organization [facility] [place] [address] Care Team Providers Care Station Installer Name Role Phone Virginie Gudino DANNA Primary Care Provider [phone] Reason for Visit * Reason Comments Medication Refill Encounter Details Date Type Department Care Team (Late st Contact Info) Description 12/06/2023 Refill Psychiatry [place] [address] Laura Joseph [facility] [place] [address] Social History Tobacco Use Types Packs/Day Years [...] Visit (TeleHealth) Psychiatry [place] [address] Isaura García [facility] [place] [address] documented as of this encounter Visit Diagnoses Not on filedocumented in this encounter Care Teams Station Installer Relationship Specialty Start Date End Date Virginie Gudino, STATION INSTALLER [address] [place] [address] PCP - General Family Medicine 06/16/18 07/31/24 documented as of this encounter
--- OUTSIDE RECORDS SUMMARY | 2024-10-05 10:48 | XMS_ITS | Encounter Summary ---
Author Organization [facility] [place] [address] Care Team Providers Care Hospice Chaplain Name Role Phone Virginie Gudino DANNA Primary Care Provider [phone] Reason for Visit * Reason Comments Medication Refill Encounter Details Date Type Department Care Team (Late st Contact Info) Description 09/29/2023 Refill Psychiatry [place] [address] [facility] [place] [address] Social History Tobacco Use Types Packs/Day Years [...] Visit (TeleHealth) Psychiatry [place] [address] García [facility] [place] [address] documented as of this encounter Visit Diagnoses Not on filedocumented in this encounter Care Teams Hospice Chaplain Relationship Specialty Start Date End Date Virginie Gudino, BENZOL OPERATOR [address] [place] [address] PCP - General Family Medicine 06/16/18 07/31/24 documented as of this encounter
--- OUTSIDE RECORDS SUMMARY | 2024-10-05 10:48 | XMS_ITS | Encounter Summary ---
Author Organization [facility] [place] [address] Care Team Providers Care Gas Plant Technician Name Role Phone MariettaVirginie ventura DANNA Primary Care Provider [phone] Reason for Visit * Reason Comments Medication Refill Encounter Details Date Type Department Care Team (Late st Contact Info) Description 01/30/2024 Refill Psychiatry [place] [address] Laura Joseph [facility] INTERN [facility] [place] [address] Social History Tobacco Use Types Packs/Day Years [...] encounter Miscellaneous Notes * Telephone Encounter - Katt Petty [facility] - 02/01/2024 2:04 PM EST Prescription Renewal Request Name: Shireen Silva : 1965 Prescription(s) Requested: Requested Prescriptions Pending Prescriptions Disp Refills mirtazapine (Remeron) 15 mg tablet [Pharmacy Med Name: MIRTAZAPINE 15 MG TABLET] 30 tablet 3 Sig: TAKE ONE TABLET BY MOUTH EVERY EVENING Date of Encounter last in This Dept (If need an appointment send to secretaries to schedule): 12/07/2023 TH visit with Laura Joseph APRN Next Encounter in This Dept: 02/15/2024 with Laura Joseph APRN Date of Last Refill (for each medication): 09/30/2023, 30:3 Status of request: Pended No Known Allergies Katt Petty CMA 02/01/24 2:04 PM documented in this encounter Plan of Treatment Upcoming Encounters Date Type Department Care Team (Late st Contact Info) Description 11/09/2024 11:30 AM EST TH Visit (TeleHealth) Psychiatry [place] [address] Isaura García APRN [facility] [place] [address] documented as of this encounter Visit Diagnoses Not on filedocumented in this encounter Care Teams Gas Plant Technician Relationship Specialty Start Date End Date Virginie Gudino APRN [address] [place] [address] PCP - General Family Medicine 06/16/18 07/31/24 documented as of this encounter
--- OUTSIDE RECORDS SUMMARY | 2024-10-05 10:48 | XMS_ITS | Encounter Summary ---
Author Organization [facility] [place] [address] Care Team Providers Care Java Websphere Developer Name Role Phone Virginie Gudino DANNA Primary Care Provider [phone] Reason for Visit * Reason Comments Medication Refill Encounter Details Date Type Department Care Team (Late st Contact Info) Description 09/25/2022 Refill Psychiatry and [place] [address] Laura Joseph [facility] [place] [address] Social History Tobacco Use Types Packs/Day Years [...] Visit (TeleHealth) Psychiatry and Behavior[place] [address] Isaura García [facility] [place] [address] documented as of this encounter Visit Diagnoses Not on filedocumented in this encounter Care Teams Java Websphere Developer Relationship Specialty Start Date End Date Virginie Gudino, AUTOMOTIVE ELECTRICIAN [address] [place] [address] PCP - General Family Medicine 06/16/18 07/31/24 documented as of this encounter
--- OUTSIDE RECORDS SUMMARY | 2024-10-05 10:48 | XMS_ITS | Encounter Summary ---
Author Organization [facility] Address [facility] [place] [address] Care Team Providers Care Sports Physician Name Role Phone Terese Virginie DANNA Primary Care Provider [phone] Reason for Referral * Consultation (Routine) - Closed Specialty Diagnoses / Procedures Referred By Contyossi t Referred To Contact Psychiatry Diagnoses Long-term current use of lithium Laura Joseph APRN [facility] [place] [address] [address] [place] [id number] Referral ID Status Reason Start Date Expiration Date V isits Requested Visits Authorized [id number] Closed Consult, Test & Treat 11/18/2022 11/18/2023 1 1 Encounter Details Date Type Department Care Team (Late st Contact Info) Description 11/17/2022 9:30 AM EST TH Visit (TeleHealth) Psychiatry [place] [address] Laura Joseph APRN [facility] [place] [address] Alcohol use disorder, mild, abuse (Primary Dx); Long-term current use of lithium; Bipolar I disorder with depression Social History [...] Progress Notes * Laura Joseph APRN - 11/17/2022 9:30 AM EST ESTABLISHED ADULT PATIENT OFFICE VISIT NOTE Shireen Silva gave permission for and was seen for today's appointment with a Video Office Visit. During this visit they were located in [place]. Shireen Silva is aware that for any urgent matter they can call [phone]. Time Spent: 30 minutes Attendee(s): Shireen SilvaLaura PMHNP Identifying information: Shireen Silva is a 57 y.o. female with history of Bipolar I disorder. Shetransferred to [facility] APRN from Dr. Villalobos March 2020. She is here for ongoing follow up. Chief Complaint: here for follow up History of Present Illness: () (Quality, Severity, Duration, Timing, Context, Modifying factors, Associated S&S) Psychiatric Symptoms: Had felt very overwhelmed (and was drinking alcohol) and was making dinner- decided to cut her arm. [place] overly emotional and made one cut-after seeing the wound she created she took self to the ER-had 5 stitches. Did not go into depth about what happened to her though talked to son. Feels guilty and ashamed. This happened /Thursday (11/13-11/14) A couple weeks ago found that her son had been cutting. Expressed her concern to her son and tried to encourage him to think before he acts (feels ashamed too that she then cut) Admits to increased depression. Feels like can be judgemental and is not comfortable discussing her mental health Mood usually: I can get feeling overwhelmed and not having a lot of energy. Feelings of overwhelmis a common theme in our discussions. Did review information I sent on ETOH resources though is unsure of what to do with the information. Discussed [facility] referral to at least get started, especially with recent self-injurious behavior. She is open to this, as when sober she acknowledges 'feeling better' and verbalizes needing to make changes with support. Drinking 1-1 1/2 bottles wine/night Recently had GERD/heartburn-had vomited and felt better (had been drinking). Health Changes: Shingles-feels she may have a small area on her back but also feels it could be her anxiety that exacerbates this area and increases the propensity to scratch Work/Life/Family Updates: Youngest son not working (has not since summer). Middle son at [place] Will go to [place] for [place]-feels overwhelmed with having to prepare/pack Went to [facility] in a RV in June. Had a good time with her . Went for three nights Substance Use: Alcohol-currently 1-2 glasses wine/nightly Safety: denies SI, denies HI. Convincingly denies suicide attempt with recent cutting of wrist (anddid go to ER) Pertinent Medication Side Effects: denied Questionnaires: PHQ9 [...] 0.5 tablets by mouth nightly. 30 tablet 0 ??? LORazepam (Ativan) 0.5 mg Tablet Take [...] trials: ?? Celexa ?Venlafaxine ?Fluoxetine ?Bupropion ?Risperidone ?[place] (current at 600 mg and 900 mg [...] movements Mental Status Exam: ?? Appearance: not seen (camera not working) ?? Behavior:cooperative with evaluation otherwise not seen (camera not working) ?? Speech: normal pitch, normal volume, normal rate and normal rhythm ?? Language: fluent in bengali ?? Mood: I'm.. okay I guess. ?? Affect: not seen (camera not working) ?? Thought Process: linear and logical ?? [...] this. Naltrexone not tolerated in the past. Through encouragement Kylee open to a referral to the Addiction Treatment Program. She's tolerated mirtazepine versus Ambienwhich is more appropriate in terms of safety. Open to getting labs ([place], CMP). Safety Assessment: Shireen Silva denies suicidal ideation [...] blood pressure PLAN: ?? Medications instructions below: [place] 600 mg AM, 900 mg HS Prozac 40 mg qd Ativan 0.5 mg PRN (last filled 12/21) mirtazepine 7.5 mg HS ?? Additional treatment recommendations: Therapy: none at this time Labs: Plan for labs in early Nov 2022 Patient Instruction/Education provided: Patient provided verbal instructions regarding medication side effects, safety plan in case of feeling unsafe. Patient understands the plan? Yes Signed By: Laura Joseph APRN documented in this encounter Plan of Treatment Upcoming Encounters Date Type Department Care Team (Late st Contact Info) Description 11/09/2024 11:30 AM EST TH Visit (TeleHealth) Psychiatry [place] [address] Isaura García APRN [facility] [place] [address] Scheduled Referrals Name Type Priority Associated Diagnoses Orde r Schedule Referral to Addiction Treatment Program Outpatient Referral Routine Long-term current use of lithium Ordered: 11/18/2022 documented as of this encounter Visit Diagnoses Diagnosis Alcohol use disorder, mild, abuse- Primary Long-term current use of lithium Bipolar I disorder with depression Bipolar I disorder, most recent episode (or current) depressed, unspecified documented in this encounter Care Teams Sports Physician Relationship Specialty Start Date End Date Virginie Gudino APRN [address] [facility] [place] [address] PCP - General Family Medicine 06/16/18 07/31/24 documented as of this encounter
--- OUTSIDE RECORDS SUMMARY | 2024-10-05 10:48 | XMS_ITS | Encounter Summary ---
Author Organization [facility] [place] [address] Care Team Providers Care Chief Design Engineer Name Role Phone Virginie Gudino DANNA Primary Care Provider [phone] Reason for Visit * Reason Comments Medication Refill Encounter Details Date Type Department Care Team (Late st Contact Info) Description 12/21/2022 Refill Psychiatry [place] [phone] Laura Joseph [facility] [place] [address] Social History Tobacco Use Types Packs/Day Years [...] Visit (TeleHealth) Psychiatry [place] [phone] Isaura García [facility] [place] [address] documented as of this encounter Visit Diagnoses Not on filedocumented in this encounter Care Teams Chief Design Engineer Relationship Specialty Start Date End Date Virginie Gudino, CHIP MACHINE OPERATOR [address] [place] [address] PCP - General Family Medicine 06/16/18 07/31/24 documented as of this encounter
--- OUTSIDE RECORDS SUMMARY | 2024-10-05 10:48 | XMS_ITS | Encounter Summary ---
Author Organization [facility] [place] [address] Care Team Providers Care Electric Shipyard Operator Name Role Phone MariettaVirginie ventura DANNA Primary Care Provider [phone] Encounter Details Date Type Department Care Team (Late st Contact Info) Description 03/24/2022 11:00 AM EDT TH Visit (TeleHealth) Psychiatry [place] [phone] Laura Joseph APRN [facility] [place] [address] Alcohol use disorder, mild, abuse (Primary Dx); Bipolar I disorder with depression Social History [...] Progress Notes * Laura Joseph APRN - 03/24/2022 11:00 AM EDT ESTABLISHED ADULT PATIENT OFFICE VISIT NOTE Shireen Silva gave permission for and was seen for today's appointment with a Video Office Visit. During this visit they were located in [place]. Shireen Ricardo is aware that for any urgent matter they can call [phone]. Time Spent: 30 minutes Attendee(s): Shireen Silva [...] ago had COVID-hit hard with bad cold butoverall bounced back-this jumpstarted her on stopping drinking. Brother has history of heavy alcohol use and did attend AA (unsure of where he's at now re: recovery) and she remembers 'dad drank whenI was young and then he didn't'. Went to [place] for Easter-did not drink there at all and is very happy with this. Feels really strong at this time. Does not have wine in the house. Feels more psychological need todrink than physical (time of day-when preparing dinner. [...] son has really been helpful Went to [place] for Easter and hoping to go back sooner than later. Was able to see sisters-one came up from [place] and it was great to see her [...] trials: ?? Celexa ?Venlafaxine ?Fluoxetine ?Bupropion ?Risperidone ?[place] (current at 600 mg and 900 [...] and normal rhythm ?? Language: fluent in mauritian ?? Mood:I'm good!. ?? Affect: full ?? [...] blood pressure PLAN: ?? Medications instructions below: [place] 600 mg AM, 900 mg HS [...] Visit (TeleHealth) Psychiatry [place] [address] Isaura García APRN [facility] [place] [address] documented as of this encounter Visit Diagnoses Diagnosis Alcohol use disorder, mild, abuse- Primary Bipolar I disorder with depression Bipolar I disorder, most recent episode (or current) depressed, unspecified documented in this encounter Care Teams Electric Shipyard Operator Relationship Specialty Start Date End Date Virginie Gudino APRN [address] [place] [address] PCP - General Family Medicine 06/16/18 07/31/24 documented as of this encounter
--- OUTSIDE RECORDS SUMMARY | 2024-10-05 10:48 | XMS_ITS | Encounter Summary ---
Author Organization [facility] [place] [address] Care Team Providers Care Audio Visual Aide Name Role Phone MariettaVirginie ventura DANNA Primary Care Provider [phone] Encounter Details Date Type Department Care Team (Late st Contact Info) Description 12/22/2022 9:00 AM EST TH Visit (TeleHealth) Psychiatry [place] [phone] Laura Joseph APRN [facility] [place] [address] Bipolar I disorder with depression (Primary Dx); Long-term current use of lithium; *Severe alcohol use disorder Social History Tobacco Use [...] Progress Notes * Laura Joseph APRN - 12/22/2022 9:00 AM EST ESTABLISHED ADULT PATIENT OFFICE VISIT NOTE Shireen Silva gave permission for and was seen for today's appointment with a Video Office Visit. During this visit they were located in [place]. Shireen Ricardo is aware that for any urgent matter they can call [phone]. Time Spent: 30 minutes Attendee(s): Shireen Silva, Laura Joseph, HNP, Nayana Kolb, HNP student Identifying information: Shireen Silva is a 57 y.o. female with history of Bipolar I disorder. Shetransferred to Zhanna Mistry APRN from Dr. Villalobos March 2020. She is here for ongoing follow up. Chief Complaint: here for follow up History of Present Illness: () (Quality, Severity, Duration, Timing, Context, Modifying factors, Associated S&S) Psychiatric Symptoms: Did accept referral to the Addiction Treatment Program at [facility]; has met with Anika once in person and once via telephone. Open to continuing at this time Reviewed with Dr. Guillaume appropriate bzd taper for alcohol withdrawal; explained this to Shireen terrazas verbalized interest in a home detox with help from her . Did utilize Librium as needed and on 12/11 started using and not drinking (see notes). Today states I have been drinking a little-opened a box of wine last night, took one sip and stopped thereafter. States she's drinking 'less' overall. Has not 'blacked out' before bed since we had our last appointment Food intake has been 'fine'. Did start to use [employer]-this has been helpful in relieving a bit of stress in the kitchen Youngest son has been helping a bit with dinner which is helpful. Feels is supportive but also more in the background of her recovery Didn't tell anyone when she went out for a walk-youngest son came to find her and was worried Had a recent superficial 'cut'. Feeling down and overwhelmed. [place] the cutting was a sense of release of emotion. Did tell her . Had a coffee with a friend (Malick) yesterday-talked a lot and felt comfortable. Light conversation and feels good about this meeting. Also talks with SHERMAN on phone; she's a good support Crafting (cricut-that will sublimate on mugs), walking the dog a bit Health Changes: none Work/Life/Family Updates: Family supportive at this time Substance Use: Varies significantly; currently 'less than usual' (usually 1+ bottles of wine) Safety: denies SI, denies HI. Convincingly denies suicide attempt with recent SIB Pertinent Medication Side Effects: denied Questionnaires: PHQ9 Questionnaires Data (Clinic and Pt Entered): last 4 values PHQ-9 QUESTIONNAIRE LAST 4 VALUES (AMB) 08/10/2022 10/21/2022 11/15/2022 11/29/2022 PHQ - 9 Score (Patient) 3 (Minimal Depression) 16 (Moderately Severe Depression) 5 (Mild Depression) 5 (Mild Depression) Little interest or pleasure (Patient) Several days More than half the days Several days Several days Down, depressed, hopeless (Patient) Several days More than half the days Several days Several days Trouble sleeping (Patient) Not at all More than half the days Not at all Not at all Tired or no energy (Patient) Several days More than half the days Several days Several days Poor appetite or overeating (Patient) Not at all More than half the days Not at all Not at all Feeling like a failure (Patient) Not at all More than half the days Several days Several days Trouble concentrating (Patient) Not at all More than half the days Not at all Not at all Moving or speaking slowly (Patient) Not at all Several days Not at all Not at all Would be better off (Patient) Not at all Several days Several days Several days GAD7 Questionnaires Data: last 4 values MALVIN-7 Patient Reported Responses 08/10/2022 10/21/2022 11/15/2022 11/29/2022 Nervous, anxious (Patient) Several days More than half the days Several days Several days Unable to stop worrying (Patient) Not at all More than half the days Not at all Several days Worrying about different things (Patient) Not at all More than half the days Not at all Several days Trouble relaxing (Patient) Not at all More than half the days Several days Several days Restless (Patient) Not at all Several days Not at all Not at all Easily annoyed, irritable (Patient) Not at all Several days Several days Several days Afraid something awful will happen (Patient) Not at all More than half the days Not at all Several days Difficulty (Patient) Not difficult at all Somewhat difficult Somewhat difficult Somewhat difficult MALVIN-7 Score (Patient) 1 (Minimal Anxiety) 12 (Moderate Anxiety) 3 (Minimal Anxiety) 6 (Mild Anxiety) Current Medications: Current Outpatient Medications Medication Sig Dispense Refill ??? chlordiazePOXIDE (Librium) 25 mg Capsule Day 1: 50 mg every 6 hours Day 2: 50 mg every 8 hours Day 3: 50 mg every 12 hours; Day 4: 50 mg once daily then stop. 20 capsule 0 ??? mirtazapine (Remeron) 15 mg Tablet Take [...] trials: ?? Celexa ?Venlafaxine ?Fluoxetine ?Bupropion ?Risperidone ?[place] (current at 600 mg and 900 mg [...] movements Mental Status Exam: ?? Appearance: well groomed, bright ?? Behavior:cooperative with evaluation otherwise not seen (camera not working) ?? Speech: normal pitch, normal volume, normal rate and normal rhythm ?? Language: fluent in chinese ?? Mood: I'm.. okay I guess. ?? Affect: bright, appropriately interactive ?? Thought [...] has begun engaging in therapeutic interventions through [facility]. She is make conscientious efforts to distract herself from drinking excessively though ishesitant to engage in support beyond [facility]/ [facility]. Will continue to engage in [place]. I did remind Shireen to get labs DAVID. Safety Assessment: Shireen Silva denies suicidal ideation [...] blood pressure PLAN: ?? Medications instructions below: [place] 600 mg AM, 900 mg HS Prozac 40 mg qd mirtazepine 7.5 mg HS ?? Additional treatment recommendations: Therapy:continue with Anika at [facility] Labs: to get DAVID Patient Instruction/Education provided: Patient provided verbal instructions regarding medication side effects, safety plan in case of feeling unsafe. Patient understands the plan? Yes Signed By: Laura Joseph APRN .12/22/22 documented in this encounter Plan of Treatment Upcoming Encounters Date Type Department Care Team (Late st Contact Info) Description 11/09/2024 11:30 AM EST TH Visit (TeleHealth) Psychiatry [place] [address] Isaura García [facility] [place] [address] documented as of this encounter Visit Diagnoses Diagnosis Bipolar I disorder with depression- Primary Bipolar I disorder, most recent episode (or current) depressed, unspecified Long-term current use of lithium *Severe alcohol use disorder documented in this encounter Care Teams Audio Visual Aide Relationship Specialty Start Date End Date Virginie Gudino APRN [address] [place] [address] PCP - General Family Medicine 06/16/18 07/31/24 documented as of this encounter
--- OUTSIDE RECORDS SUMMARY | 2024-10-05 10:48 | XMS_ITS | Encounter Summary ---
Author Organization [facility] [place] [address] Care Team Providers Care Accredited Farm Manager Name Role Phone Virginie Gudino DANNA Primary Care Provider [phone] Reason for Visit * Reason Comments Medication Refill Encounter Details Date Type Department Care Team (Late st Contact Info) Description 04/01/2022 Refill Psychiatry [place] [phone] Laura Joseph [facility] [place] [address] Social History Tobacco Use Types Packs/Day Years [...] Visit (TeleHealth) Psychiatry [place] [phone] Isaura García [facility] [place] [address] documented as of this encounter Visit Diagnoses Not on filedocumented in this encounter Care Teams Accredited Farm Manager Relationship Specialty Start Date End Date Virginie Gudino, MEDICAL AFFAIRS SPECIALIST [address] [place] [address] PCP - General Family Medicine 06/16/18 07/31/24 documented as of this encounter
--- OUTSIDE RECORDS SUMMARY | 2024-10-05 10:48 | XMS_ITS | Encounter Summary ---
Author Organization [facility] [place] [address] Care Team Providers Care Crate Liner Name Role Phone Virginie Gudino DANNA Primary Care Provider [phone] Reason for Visit * Reason Onset Date Comments Medication Refill 10/01/2022 Encounter Details Date Type Department Care Team (Late st Contact Info) Description 10/01/2022 Refill Psychiatry and [place] [phone] Laura Joseph [facility] [place] [address] Social History Tobacco Use Types Packs/Day Years [...] Visit (TeleHealth) Psychiatry and [place] [phone] Isaura García [facility] [place] [address] documented as of this encounter Visit Diagnoses Not on filedocumented in this encounter Care Teams Crate Liner Relationship Specialty Start Date End Date Virginie Gudino, ORE BUYER [address] [place] [address] PCP - General Family Medicine 06/16/18 07/31/24 documented as of this encounter
--- OUTSIDE RECORDS SUMMARY | 2024-10-05 10:48 | XMS_ITS | Encounter Summary ---
Author Organization [facility] [address] Care Team Providers Care Station Air Traffic Control Specialist Name Role Phone Virginie Gudino APRN Primary Care Provider [phone] Encounter Details Date Type Department Care Team (Late st Contact Info) Description 12/05/2022 Orders [place] [phone] [facility] [address] PSYCHIATRY [place] [address] Social History Tobacco Use Types Packs/Day Years [...] Visit (TeleHealth) Psychiatry and [place] [phone] [facility] PSYCHIATRY [place] [address] documented as of this encounter Visit Diagnoses Not on filedocumented in this encounter Care Teams Station Air Traffic Control Specialist Relationship Specialty Start Date End Date Virginie Gudino APRN [address] [place] [address] PCP - General Family Medicine 06/16/18 07/31/24 documented as of this encounter
--- OUTSIDE RECORDS SUMMARY | 2024-10-05 10:48 | XMS_ITS | Encounter Summary ---
Author Organization [facility] [place] [address] Care Team Providers Care Physician Office Rep Name Role Phone Virginie Gudino DANNA Primary Care Provider [phone] Reason for Visit * Reason Comments Medication Refill Encounter Details Date Type Department Care Team (Late st Contact Info) Description 05/28/2023 Refill Psychiatry [place] [phone] Laura Joseph [facility] [place] [address] Social History Tobacco Use Types Packs/Day Years [...] Visit (TeleHealth) Psychiatry [place] [phone] Isaura García [facility] [place] [address] documented as of this encounter Visit Diagnoses Not on filedocumented in this encounter Care Teams Physician Office Rep Relationship Specialty Start Date End Date Virginie Gudino, LINUX UNIX ADMINISTRATOR [address] [place] [address] PCP - General Family Medicine 06/16/18 07/31/24 documented as of this encounter
--- OUTSIDE RECORDS SUMMARY | 2024-10-05 10:49 | XMS_ITS | Encounter Summary ---
Author Organization [facility] [place] [address] Care Team Providers Care Certified Vehicle Fire Investigator Name Role Phone Virginie Gudino DANNA Primary Care Provider [phone] Reason for Visit * Reason Onset Date Comments Medication Refill 10/23/2020 Encounter Details Date Type Department Care Team (Late st Contact Info) Description 10/23/2020 Refill Psychiatry [place] [phone] Zhanna Mistry [facility] [place] [address] Social History Tobacco Use Types Packs/Day Years [...] Visit (TeleHealth) Psychiatry and [place] [phone] Isaura García [facility] [place] [address] documented as of this encounter Visit Diagnoses Not on filedocumented in this encounter Care Teams Certified Vehicle Fire Investigator Relationship Specialty Start Date End Date Virginie Gudino, VP CLINICAL RESEARCH [address] [place] [address] PCP - General Family Medicine 06/16/18 07/31/24 documented as of this encounter
--- OUTSIDE RECORDS SUMMARY | 2024-10-05 10:49 | XMS_ITS | Encounter Summary ---
Author Organization [facility] [place] [address] Care Team Providers Care Stove Polisher Name Role Phone Virignie Gudino DANNA Primary Care Provider Encounter Details Date Type Department Care Team (Late st Contact Info) Description 08/10/2018 Orders [place] [phone] [address] [facility] [place] [address] Vitamin D deficiency Social History Tobacco Use Types Packs/Day Years [...] Visit (TeleHealth) Psychiatry [place] [phone] Isaura García [facility] [place] [address] documented as of this encounter Visit Diagnoses Diagnosis Vitamin D deficiency Unspecified vitamin D deficiency documented in this encounter Care Teams Stove Polisher Relationship Specialty Start Date End Date Virginie Gudino, BEER MERCHANT [address] [place] [place] [address] PCP - General Family Medicine 06/16/18 07/31/24 documented as of this encounter
--- OUTSIDE RECORDS SUMMARY | 2024-10-05 10:49 | XMS_ITS | Encounter Summary ---
Author Organization [place] [address] Care Team Providers Care [employer] Physical Education Teacher Name Role Phone Virginie Gudino APRN Primary Care Provider [phone] Reason for Visit * Reason Onset Date Comments Medication Refill 03/22/2021 Encounter Details Date Type Department Care Team (Late st Contact Info) Description 03/22/2021 Refill Psychiatry [place] [address] Lucrecia Hope Social History Tobacco Use Types Packs/Day Years [...] Visit (TeleHealth) Psychiatry [place] [address] Isaura García APRN [facility] [place] [address] documented as of this encounter Visit Diagnoses Not on filedocumented in this encounter Care Teams High [employer] Physical Education Teacher Relationship Specialty Start Date End Date Virginie Gudino APRN [address] [place] [address] PCP - General Family Medicine 06/16/18 07/31/24 documented as of this encounter
--- OUTSIDE RECORDS SUMMARY | 2024-10-05 10:49 | XMS_ITS | Encounter Summary ---
Author Organization [facility] [place] [address] Care Team Providers Care Sort Manager Name Role Phone Virginie Gudino DANNA Primary Care Provider [phone] Encounter Details Date Type Department Care Team (Latest Contact Info) Description 07/23/2020 1:00 PM EDT TH Visit (TeleHealth) Psychiatry [place] [address] [facility] [place] [address] Bipolar affective disorder, remission status unspecified; Anxiety Social History Tobacco Use Types Packs/Day Years [...] as of this encounter Progress Notes * Zhanna Mistry APRN - 07/23/2020 1:00 PM EDT ESTABLISHED ADULT PATIENT OFFICE VISIT NOTE Shireen Silva gave permission for and was seen for today's appointment with a Telephone Office Visit. During this visit they were located in [place]. Shireen Ricardo is aware that for any urgent matter they can call [phone]. (prefers telephone to telehealth) Time Spent: 30 min Attendee(s): patient Identifying information: Shireen Silva is a 54 y.o. female with history of Bipolar I disorder withR/O MALVIN. She is a transfer from Dr. Villalobos. She is here for ongoing follow up. Chief Complaint: Following up regarding medications History of Present Illness: () (Quality, Severity, Duration, Timing, Context, Modifying factors, Associated S&S) Shireen Silva is a 55 y.o. female Psychiatric Symptoms: ?? Mood: not a lot of motivation. Motivation is low. Rates depression: /10 ?? Does continue to exercise ?? Anxiety: [...] 5 (Mild Depression) 5 (Mild Depression) 3 (MinimalDepression) Little interest or pleasure [...] EVERY MORNING AND3 TABLETS IN THE EVENING ( complete level at [facility]) 150 tablet 5 ??? FLUoxetine (PROzac) 20 mg Capsule Take 1 capsule by mouth daily. 30 capsule 5 ??? LORazepam (Ativan) 0.5 mg Tablet Take 1 tablet by mouth every 6 hours as needed for Anxiety. 30tablet 0 ??? bismuth subsalicylate (PEPTO-BISMOL) 262 mg/15 mL Suspension Take 15 mLs by mouth every 6 hoursas needed for Indigestion. ??? cetirizine (ZYRTEC) 10 mg tablet Take 10 mg by mouth daily. Reported on 03/23/2017 Indications: Seasonal Allergic Rhinitis ??? pseudoephedrine (SUDAFED) 30 mg tablet Take 30 mg by mouth every 4 hours as needed. Reported on03/23/2017 ??? calcium carbonate (TUMS) 200 mg calcium (500 mg) chewable tablet Take 1 tablet by mouth daily as needed. ??? multivitamin (THERAGRAN) tablet Take 1 tablet by mouth daily. No current facility-administered medications for this visit. 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 Notes growing up in family that didn't express emotions easily she can internalize this. ?? Vitals (24hr Range): No data found. Musculoskeletal System: Not evaluated due to telephone call Mental Status Exam: ?? Speech: normal pitch, normal volume, normal rate and normal rhythm ?? Language: fluent in portuguese ?? Mood: more down ?? Affect: mood-congruent [...] good ?? Labs: Psychiatry Labs: Date: 03/15/20 [place]: 1.00 Creatinine: .84 BUN: 19 ( H) Calcium: 10 Formulation and Assessment: Overall Formulation: Shireen Silva is a 55 y.o. Female with a history of Bipolar I and anxiety. She has history of SIB and SI when more depressed. Ambien is protective for sleep. Will likely benefitfrom re engaging in therapy. She would like [...] and emergency contact info ?? Medications: ?? [place]: 600mg SR in AM and 900mg in PM ?? Prozac: 20mg PO daily ?? Ambien: 5mg daily ?? Ativan: 0.5mg PO daily PRN ( rare use does not need refill) ?? LABS: [place] level and BMP in 6 months, due [...] Visit (TeleHealth) Psychiatry [place] [address] Isaura García APRN [facility] [place] [address] documented as of this encounter Visit Diagnoses Diagnosis Bipolar affective disorder, remission status unspecified Anxiety Anxiety state, unspecified documented in this encounter Care Teams Sort Manager Relationship Specialty Start Date End Date Virginie Gudino APRN [address] [place] [address] PCP - General Family Medicine 06/16/18 07/31/24 documented as of this encounter
--- OUTSIDE RECORDS SUMMARY | 2024-10-05 10:49 | XMS_ITS | Encounter Summary ---
Author Organization [facility] [place] [address] Care Team Providers Care Mailhouse Operator Name Role Phone Virginie Gudino DANNA Primary Care Provider [phone] Encounter Details Date Type Department Care Team (Latest Contact Info) Description 03/12/2020 9:30 AM EDT TH Visit (TeleHealth) Psychiatry [place] [address] Zhanna Mistry RETAIL WAREHOUSE ASSOCIATE [facility] PSYCHIATRY [place] [address] Bipolar affective disorder, remission status unspecified; Anxiety [...] Progress Notes * Zhanna Mistry APRN - 03/12/2020 9:30 AM EDT ESTABLISHED ADULT PATIENT OFFICE VISIT NOTE Time Spent: 30 min Attendee(s): patient Identifying information: Shireen Silva is a 54 y.o. female with history of Bipolar I disorder withR/O MALVIN. She is a transfer from Dr. Villalobos. She is here for ongoing follow up. Chief Complaint: Following up regarding medication s History of Present Illness: () (Quality, Severity, Duration, Timing, Context, Modifying factors, Associated S&S) Shireen Silva is a 54 y.o. female Psychiatric Symptoms: Mood: doing okay Anxiety: not too bad. She is not really using Lorazepam. Psychosis: continues to hear music playing in another room. It doesn't feel worse and doesn't bother her too much Sleep: pretty well Appetite: eating fine Energy: fine Focus/Concentration: fine Medication compliance:Taking [place] every day and ambien most nights Makes sure she hydrates well with [place] Medication side effects:none We reviewed the importance of completing her lab work, she agrees to do this, this week. Work/Life/Family Updates: JOEL before pandemic in [place]. Glad they could be there with her. 2 sons are working and doing okay Substance Use: Recently had stomach bug, stopped drinking, felt better and less bloated. Lost 10lbs She drinks 2-3 glasses of wine since the loss of her MIL. But is motivated to stop again. Denies withdrawal. Used ativan a little more right after stopping alcohol but not anymore. Safety: Denies SI/HI intent or plan, denies [...] for Sleep. 30 tablet 3 ??? FLUoxetine (PROZAC) 20 mg Capsule Take 1 capsule by mouth daily. 30 capsule 5 ??? lithium (LITHOBID) 300 mg Tablet Sustained Release TAKE 2 TABLETS BY MOUTH EVERY MORNING AND 3 TABLETS IN THE EVENING ( complete level at [facility]) 150 tablet 5 ??? bismuth subsalicylate (PEPTO-BISMOL) 262 mg/15 mL [...] Medication Side Effects: Denies Review of Systems: CHI Lost 10lb when she stopped alcohol GI Denies NEURO Denies PSYCH See above / control Allergies Reviewed [...] of trial): ??Celexa ?Venlafaxine ?Fluoxetine ?Bupropion ?Risperidone ?[place] (current at 600 mg and 900 mg [...] and normal rhythm ?? Language: fluent in yoruba ?? Mood: okay ?? Affect: mood-congruent ?? Thought Process: linear [...] use disorder CURRENT ASSESSMENT: Mood is stable. No evidence of diana, depression. Anxiety is fair. Denies side effects of her medications. We did discuss the importance of completing [place] associated lab work because it had been almost a year since last. She is in agreement. We discussed improved health off of alcohol. She is motivated to reduce alcohol use. Declines Naltrexone. I reviewed that LADAC can be really helpful. She will consider. She is careful to not combine alcohol with Ambien/lorazepam. She understands risk of SUPERVISOR INSTRUMENT MAINTENANCE depression PLAN: ?? Safety:?? reviewed office and emergency contact info ?? Medications: ?? [place]: 600mg SR in AM and 900mg in PM ?? Prozac: 20mg PO daily ?? Ambien: 5mg daily ?? Ativan: 0.5mg PO daily PRN ( rare use does not need refill) ?? LABS: [place] level and BMP at [facility] ( nurse Angélica Pearl sent these to [facility]) ?? Additional treatment recommendations: consider psychotherapy, she was given information about how to find therapist near her and will check out psychology today. A LADAC would be helpful ?? Follow-up:??3 months Safety Assessment: Denies SI/HI intent or plan. SIB in the past ( in last year). None currently. Nohx of SA. No psychiatric hospitalizations. Patient Instruction/Education provided: Patient provided verbal instructions regarding medication side effects, safety plan in case of feeling unsafe. Patient understands the plan? Yes Signed By: Zhanna Mistry APRN ADDENDUM: Patient completed [place] level on 03/15: WNL with 1.00. BMP and liver function ( obtained in case considering Naltrexone) is WNL. See scanned documents on 03/15. Will need TSH at follow up. documented in this encounter Plan of Treatment Upcoming Encounters Date Type Department Care Team (Late st Contact Info) Description 11/09/2024 11:30 AM EST TH Visit (TeleHealth) Psychiatry [place] [address] Isaura García APRN [facility] DR PSYCHIATRY [place] [address] documented as of this encounter Visit Diagnoses Diagnosis Bipolar affective disorder, remission status unspecified Anxiety Anxiety state, unspecified documented in this encounter Care Teams Mailhouse Operator Relationship Specialty Start Date End Date Virginie Gudino APRN [address] [place] [address] PCP - General Family Medicine 06/16/18 07/31/24 documented as of this encounter
--- OUTSIDE RECORDS SUMMARY | 2024-10-05 10:49 | XMS_ITS | Encounter Summary ---
Author Organization [facility] [place] [address] Care Team Providers Care Executive Staff Assistant Name Role Phone Virginie Gudino APRN Primary Care Provider [phone] Reason for Visit * Reason Onset Date Comments Medication Refill 09/17/2018 Encounter Details Date Type Department Care Team (Late st Contact Info) Description 09/17/2018 Refill Psychiatry [place] [address] Ugo Pearl, RN Social History Tobacco Use Types Packs/Day [...] Visit (TeleHealth) Psychiatry [place] [address] [address]aura García APRN [facility] [place] [address] documented as of this encounter Visit Diagnoses Not on filedocumented in this encounter Care Teams Executive Staff Assistant Relationship Specialty Start Date End Date Virginie Gudino APRN [address] [address] PCP - General Family Medicine 06/16/18 07/31/24 documented as of this encounter
--- OUTSIDE RECORDS SUMMARY | 2024-10-05 10:49 | XMS_ITS | Encounter Summary ---
Author Organization [facility] Address [facility] [address] Care Team Providers Care Director Part Name Role Phone Virginie Gudino APRN Primary Care Provider [phone] Reason for Visit * Reason Comments Bipolar Disorder Encounter Details Date Type Department Care Team (Late st Contact Info) Description 10/27/2018 3:00 PM EST Office Visit Psychiatry [place] [phone] Laura Villalobos MD [facility] [place] [address] Bipolar affective disorder, remission status unspecified Social History Tobacco Use Types Packs/Day Years [...] 167.6 cm (5' 5.98) 10/27/2018 2:40 PM ES T Body Mass Index 24.71 10/27/2018 2:40 PM EST documented in this encounter Progress Notes * Laura Villalobos - 10/27/2018 3:00 PM EST ESTABLISHED ADULT PATIENT OFFICE VISIT NOTE Time Spent: 30 min Attendee(s): Ms. Silva This patient was seen with Dr. Demetrius Deng See her note for confirmatory and/or revisionary documentation. HISTORY Chief Complaint: Shireen Silva is a 53 y.o. Female presents today for medication management/followup HPI: She reports her mood is a bit more depressed since her most recent appointment. She reports it's the same as it always is, and she feels less motivated and a bit more anxious. She reports the holidays, winter, and her son being in college add to the stress. It's not really one thing, it's a lot ofthings per patient. Her therapist moved during the summer and so she isn't seeing a therapist right now. She feels it's too hard to drive to see him. - Got a lithium level a few months ago and she thinks it it was around 0.95 - she is going to emailthe result in so it can go into her chart. - She reports it took about 2 weeks to get her medications to be refilled while I was on leave - she didn't miss a dose a dose of lithium but did miss some doses of ambien - went a week or two without it. During that time she took ativan and melatonin, also tried another over the counter sleep aid. Now she is back to taking ambien, and is sleeping well again. She feels her current medications areworking. Hasn't been taking ativan or zyprexa recently. [...] 1-2 drinks at a time, wine at dinner,pretty much the same - she has times when she doesn't drink and that's ok - it's more a relaxing thing Cigarettes: no smoking Drugs: no drugs, no [...] 17 (Moderately Severe Depression) 9 (Mild Depression) 9(Mild Depression) Some recent data might be hidden Pertinent Medication Side Effects: None reported PFSH: (0) 10/27/18: Reviewed hx of diana - she reports she has had about 4 manic episodes with decreased needfor sleep, increased energy, doing things she wouldn't normally do. Per chart: Reviewed and added to hx on 03/22/18: No psychiatric hospitalizations. No history of suicide attempt. Hx of self harm: cutting when she was in her 30's, maybe once or twice in the past few years - whendepressed after a manic attack was bulk of it. Maybe has cut once in the past couple of years as of appointment 03/22/18. Per Dr. 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 Overall she seems to be feeling a bit lower in terms of mood. She stopped seeing her therapist and reports she has several stressors. There are no acute safety concerns - the patient does reports some intermittent thoughts of harming herself however she reports these thoughtshave not increased, and she denies intent or plan to harm herself. She reports she would reach out for help if needed. She reports she would like to continue her current medication regimen. We did discuss her alcohol use and that alcohol is a depressant. Additionally we discussed with her the possible use of a light box, with monitoring for signs [...] treatment plan. Patient understands the plan? Yes * Demetrius Deng MD - 10/27/2018 3:00 PM EST PSYCHIATRY TEACHING PHYSICIAN INVOLVEMENT Location: [facility], [address] Attending Physician: Demetrius Deng MD Resident [...] but doesn't want to change her meds. Had lithium level drawn at OSH - will send us those. Reviewed risk/benefit of lightbox with bipolar depression. Also reviewed risks of alcohol in promoting depression. No SI or HI. DEMETRIUS DENG MD documented in this encounter Plan of Treatment Upcoming Encounters Date Type Department Care Team (Late st Contact Info) Description 11/09/2024 11:30 AM EST TH Visit (TeleHealth) Psychiatry [place] [phone] Isaura Garcaí APRN [facility] [place] [address] documented as of this encounter Visit Diagnoses Diagnosis Bipolar affective disorder, remission status unspecified documented in this encounter Care Teams Director Part Relationship Specialty Start Date End Date Virginie Gudino APRN [address] [place] [address] PCP - General Family Medicine 06/16/18 07/31/24 documented as of this encounter
--- OUTSIDE RECORDS SUMMARY | 2024-10-05 10:49 | XMS_ITS | Encounter Summary ---
Author Organization [facility] [place] [address] Care Team Providers Care Drop Wire Builder Name Role Phone MariettaVirginie ventura DANNA Primary Care Provider [phone] Encounter Details Date Type Department Care Team (Late st Contact Info) Description 12/10/2018 External Results Psychiatry [place] [phone] Provider, Scanning Social History Tobacco Use Types Packs/Day Years [...] Visit (TeleHealth) Psychiatry [place] [phone] Isaura García APRN [facility] [place] [address] documented as of this encounter Procedures Procedure Name Priority Date/Time Associated Diagnosis Comments LAB SCAN Routine 01/19/2018 documented in this encounter Results * Scan Doc: Lab (01/19/2018) Scanning Provider MEDIA MGR SCAN EXT O RDR/RSLT documented in this encounter Visit Diagnoses Not on filedocumented in this encounter Care Teams Drop Wire Builder Relationship Specialty Start Date End Date Virginie Gudino, SUPERVISOR BONDING [address] [place] [address] PCP - General Family Medicine 06/16/18 07/31/24 documented as of this encounter
--- OUTSIDE RECORDS SUMMARY | 2024-10-05 10:49 | XMS_ITS | Encounter Summary ---
Author Organization [facility] [place] [address] Care Team Providers Care Racehorse Trainer Name Role Phone MariettaVirginie ventura DANNA Primary Care Provider [phone] Encounter Details Date Type Department Care Team (Late st Contact Info) Description 04/22/2021 10:30 AM EDT TH Visit (TeleHealth) Psychiatry [place] [phone] Laura Joseph APRN [facility] [place] [address] Encounter for therapeutic drug level monitoring (Primary Dx); Bipolar I disorder with depression; Anxiety; Hypothyroidism due to medicaments and other exogenous substances Social History Tobacco Use Types Packs/Day Years [...] Progress Notes * Laura Joseph APRN - 04/22/2021 10:30 AM EDT ESTABLISHED ADULT PATIENT OFFICE VISIT NOTE Shireen Silva gave permission for and was seen for today's appointment with a Video Office Visit. During this visit they were located in [place]. Shireen Ricardo is aware that for any urgent matter they can call [phone]. Time Spent: 30 minutes Attendee(s): Shireen Silva Identifying information: Shireen Silva is a 55 y.o. female with history of Bipolar I disorder withr/o MALVIN. She transferred to Zhanna Mistry APRN from Dr. Villalobos March 2020. She is here for ongoingfollow up. Chief Complaint: here for follow up [...] Depression) 3 (Minimal Depression) 17 (Moderately Severe Depression) 8 (Mild Depression) Little interest or pleasure (Patient) Several days Several days Nearly every day More than half thedays Down, depressed, hopeless (Patient) Several days Not [...] than half the days More than half thedays Trouble concentrating (Patient) Several days Several days [...] needed for Sleep. 30 tablet 3 ??? ferrous sulfate 324 mg (65 [...] 4 hours as needed. Reported on03/23/2017 ??? multivitamin (THERAGRAN) tablet Take 1 tablet [...] trials: ?? Celexa ?Venlafaxine ?Fluoxetine ?Bupropion ?Risperidone ?[place] (current at 600 mg and 900 mg [...] rhythm ?? Language: fluent in estonian ?? Mood:'pretty good' ?? Affect: full ?? [...] 12/17/20 lithium level .80 Reviewed symptoms of [place] toxicity, including tremor/changes in musclecontrol (ataxia), weakness, increased thirst, blurred vision, GI [...] and she is hopeful she can continue abstinence,though does not talk to her much about this. She has a good support system and is a positive person in general. Safety Assessment: Shireen Gideon denies suicidal and homicidal ideation. Protective factors include: family and community support and engaged in medical and/or mental health care. We carefully reviewed office and emergency contact info and when to contact our crisis line at . PLAN: ?? Medications instructions below: [place] 600 mg AM, 900 mg HS Ambien [...] Visit (TeleHealth) Psychiatry [place] [address] Isaura García APRN [facility] [place] [address] documented as of this encounter Visit Diagnoses Diagnosis Encounter for therapeutic drug level monitoring- Primary Encounter for therapeutic drug monitoring Bipolar I disorder with depression Bipolar I disorder, most recent episode (or current) depressed, unspecified Anxiety Anxiety state, unspecified Hypothyroidism due to medicaments and other exogenous substances documented in this encounter Care Teams Racehorse Trainer Relationship Specialty Start Date End Date Virginie Gudino APRN [address] [place] [address] PCP - General Family Medicine 06/16/18 07/31/24 documented as of this encounter
--- OUTSIDE RECORDS SUMMARY | 2024-10-05 10:49 | XMS_ITS | Encounter Summary ---
Author Organization [facility] [place] [address] Care Team Providers Care Application Manager Name Role Phone Virginie Gudino APRN Primary Care Provider [phone] Reason for Visit * Reason Comments Medication Refill Encounter Details Date Type Department Care Team (Late st Contact Info) Description 03/25/2019 Refill Psychiatry [place] [id number] Robert Atkins MD [facility] [place] [address] Social History Tobacco Use Types Packs/Day Years [...] encounter Miscellaneous Notes * Telephone Encounter - Rachel Pedroza RN - 03/25/2019 11:03 AM EDT OV 04/13/19. lab work for lithium level and thyroid levels ordered on 03/22/19 has not been drawn yet. documented in this encounter Plan of Treatment Upcoming Encounters Date Type Department Care Team (Late st Contact Info) Description 11/09/2024 11:30 AM EST TH Visit (TeleHealth) Psychiatry [place] [address] Isaura García APRN [facility] [place] [address] documented as of this encounter Visit Diagnoses Not on filedocumented in this encounter Care Teams Application Manager Relationship Specialty Start Date End Date Virginie Gudino APRN [address] [facility] [place] [address] PCP - General Family Medicine 06/16/18 07/31/24 documented as of this encounter
--- OUTSIDE RECORDS SUMMARY | 2024-10-05 10:49 | XMS_ITS | Encounter Summary ---
[facility] [place] [address] Care Team Providers Care Farm Worker Name Role Phone Virginie Gudino DANNA Primary Care Provider [phone] Reason for Visit * Reason Onset Date Comments Medication Refill 10/18/2021 Encounter Details Date Type Department Care Team (Late st Contact Info) Description 10/18/2021 Refill Psychiatry [place] [phone] Laura Joseph [facility] [place] [address] Social History Tobacco Use Types Packs/Day Years [...] Psychiatry [place] [address] Isaura García [facility] [place] [address] documented as of this encounter Visit Diagnoses Not on filedocumented in this encounter Care Teams Farm Worker Relationship Specialty Start Date End Date Virginie Gudino, EVENT PROMOTIONS COORDINATOR [address] [place] [address] PCP - General Family Medicine 06/16/18 07/31/24 documented as of this encounter
--- OUTSIDE RECORDS SUMMARY | 2024-10-05 10:49 | XMS_ITS | Encounter Summary ---
Author Organization [facility] [place] [address] Care Team Providers Care Composition Teacher Name Role Phone MariettaVirginie ventura DANNA Primary Care Provider [phone] Reason for Visit * Reason Onset Date Comments Medication Refill 02/23/2019 Encounter Details Date Type Department Care Team (Late st Contact Info) Description 02/23/2019 Refill Psychiatry [place] [phone] Laura Villalobos MD [facility] [place] [address] Social History Tobacco Use Types Packs/Day Years [...] Visit (TeleHealth) Psychiatry [place] [phone] Isaura García APRN [facility] [place] [address] documented as of this encounter Visit Diagnoses Not on filedocumented in this encounter Care Teams Composition Teacher Relationship Specialty Start Date End Date Virginie Gudino, MEAT CUTTER APPRENTICE [address] [place] [address] PCP - General Family Medicine 06/16/18 07/31/24 documented as of this encounter
--- OUTSIDE RECORDS SUMMARY | 2024-10-05 10:49 | XMS_ITS | Encounter Summary ---
Author Organization [facility] [place] [address] Care Team Providers Care Tugboat Captain Name Role Phone Virginie Gudino DANNA Primary Care Provider [phone] Reason for Visit * Reason Comments Bipolar Disorder Encounter Details Date Type Department Care Team (Late st Contact Info) Description 06/27/2019 2:00 PM EDT Office Visit Psychiatry [place] [phone] Zhanna Mistry HELP DESK SUPPORT SPECIALIST [facility] [place] [address] Bipolar affective disorder, remission status unspecified Social [...] EDT documented in this encounter Progress Notes * Zhanna Mistry, HELP DESK SUPPORT SPECIALIST - 06/27/2019 2:00 PM EDT Psychiatry Outpatient Evaluation Location: office Time Spent: 20 min Referral Source: Dr. Villalobos Information Source: Patient Identifying information: Shireen Silva is a 54 y.o. female with history of Bipolar I disorder withR/O MALVIN. She is here as a transfer [...] to help with anxiety and depression. Shireen ispleased by the fact that she feels better. Denies symptoms of diana. She is also surprised that sheis not having any suicidal ideation or cutting behavior ( shows me scars on arms when cutting was more active). She had been taking more Ativan but since the Prozac she does not need it. She did have some anxiety this AM. She endorses not liking having to wait which can increase anxiety. She continues to sleep well with 7-8 hours of sleep. She tells me that her therapist moved and then she lost her insurance and she has not been back into therapy. She says sometimes is hard for her to show is really wrong. Can mask when she is suffering. Relates this to her upbrining. She has some [...] needed for Anxiety. 30tablet 0 ??? FLUoxetine (PROZAC) 10 mg Capsule Take one tablet by mouth daily, after 10 days can increase totwo tablets daily. 60 capsule 2 ??? zolpidem (AMBIEN) 5 mg Tablet Take 0.5-1 tablets by mouth nightly as needed for Sleep. 30 tablet 3 ??? bismuth subsalicylate (PEPTO-BISMOL) 262 mg/15 mL [...] of patient: Shireen Silva??is a 53 y.o.??Female??with??hx of??bipolar disorder with a history of manic episodes (however never hospitalization), with mood more recentlybeing predominately depressed. She has a long history of being followed on this clinic and has been on lithium for many years. She has a history of cutting, and reports she has started to cut more inthe spring. She lives with her and has three sons. She is currently trying to re-engage in therapy. ?? Prior medications trials (dosage, response, side effects, adequacy of trial): Citalopra-= ?Venlafaxine ?Fluoxetine ?Bupropion ?Risperidone ?[place] (current at 600 mg and 900 mg daily) ?Oxcarbazepine ?Clonazepam ?Lorazepam ?Zolpidem (current at 5 mg nightly PRN insomnia) ?Eszopiclone ?Lurasidone 2017 - felt it made her mood worse ? Allergies: No Known Allergies Substance Use: She reports drinking 1-3 glasses of wine at night, she would like to cut back. We discuss strategies for this ( putting water in wine, reducing amount slowly). She doesn't like weight gain from it. Family History: Note evaled due to time Developmental History: Note evaled due to time Social History: She is to [place]. They have 3 sons. Her 18yo and 25 yo live with her. Describes that husbandjust retired. They all have to share one [...] ?? Language: fluent in yoruba ?? Mood: I am better ?? Affect: mood-congruent ?? Thought Process: linear and logical ?? Associations: intact ?? Thought Content: denied homicidal ideation, denied suicidal ideation, no bizarre delusions and no paranoid delusions ?? Perception: denied auditory hallucinations denied [...] Component Value Ref Range & Units Status [place] Lvl 0.89 <=1.20 mmol/L Final Therapeutic level for bipolar depression: 0.60-1.20 mmol/L Action Level: ?Acute toxicity: ?>4.00 mmol/L ?Chronic toxicity: ??>1.50 mmol/L Values greater than or equal to the action level necessitate clinical intervention. ??Values less than this level may necessitate intervention based on clinical condition of the patient. Ref: ??Goldfrank???s Toxicologic Emergencies 6th ed 1998; p. 967 04/07/2019 12:55 PM Component Value [...] well. No evidence of diana or s/e of medications. We will continue. She is interested in [...] support, suggest slowly reducing over time and if difficult I could discuss further treatmentoptions. March 2019 Labs with lithium Level, BMP and TSH are WNL. Diagnosis: Bipolar disorder, R/O MALVIN Safety Assessment: Denies SI/HI intent or plan. SIB in the past ( in last year). None currently. Nohx of SA. No psychiatric hospitalizations. PLAN: ?? Safety: reviewed office and emergency contact info ?? Medications: ?? [place]: 600mg SR in AM and 900mg in [...] We discussed that I am available via [facility], but that I do not check this daily, and should not be used in case of emergency. We have reviewed crisis numbers to call in case of emergency. We discussed limits to confidentiality, which include breaking confidentiality in the case of concern for imminent danger to self, someone else (including child and elder abuse) or if records are subpoenaed by a automotive designer. We also discussed that notes can be read by other clinicians and staff involved in the patient's care. Patient understands the plan? Yes Signed By: Zhanna Mistry APRN 06/27/2019 documented in this encounter Plan of Treatment Upcoming Encounters Date Type Department Care Team (Late st Contact Info) Description 11/09/2024 11:30 AM EST TH Visit (TeleHealth) Psychiatry [place] [address] Isaura García APRN [facility] [place] [address] documented as of this encounter Visit Diagnoses Diagnosis Bipolar affective disorder, remission status unspecified documented in this encounter Care Teams Tugboat Captain Relationship Specialty Start Date End Date Virginie Gudino APRN [address] [place] [address] PCP - General Family Medicine 06/16/18 07/31/24 documented as of this encounter
--- OUTSIDE RECORDS SUMMARY | 2024-10-05 10:49 | XMS_ITS | Encounter Summary ---
Author Organization [facility] [place] [address] Care Team Providers Care Certified Personal Finance Counselor Name Role Phone Virginie Gudino APRN Primary Care Provider [phone] Encounter Details Date Type Department Care Team (Late st Contact Info) Description 04/14/2019 Notes Only Psychiatry [place] [address] Laura Villalobos MD [facility] [place] [place] [address] Social History Tobacco Use Types Packs/Day Years [...] of this encounter Progress Notes * Laura Villalobos C - 04/14/2019 1:22 PM EDT Termination/Transfer note Treatment termination/transfer date: May 2019 Diagnosis: Bipolar disorder, R/O MALVIN Brief formulation/assessment of patient: Shireen Silva is a 53 y.o. Female with hx of bipolar disorder with a history of manic episodes (however never hospitalization), with mood more recently beingpredominately depressed. She has a long history of [...] of trial): Citalopram ?Venlafaxine ?Fluoxetine ?Bupropion ?Risperidone ?[place] (current at 600 mg and 900 mg [...] patient reported more cutting on visit in May, 2019. Possible Future Considerations: If the patient does not respond well to prozac, I would question her more about her prior trials of antidepressants and [...] Visit (TeleHealth) Psychiatry [place] [address] Isaura García APRN [facility] [place] [address] documented as of this encounter Visit Diagnoses Not on filedocumented in this encounter Care Teams Certified Personal Finance Counselor Relationship Specialty Start Date End Date Virginie Gudino APRN [address] [place] [address] PCP - General Family Medicine 06/16/18 07/31/24 documented as of this encounter
--- OUTSIDE RECORDS SUMMARY | 2024-10-05 10:49 | XMS_ITS | Encounter Summary ---
Author Organization [facility] [place] [address] Care Team Providers Care Payroll Tax Specialist Name Role Phone Virginie Gudino DANNA Primary Care Provider [phone] Reason for Visit * Reason Onset Date Comments Medication Refill 02/22/2020 Encounter Details Date Type Department Care Team (Late st Contact Info) Description 02/22/2020 Refill Psychiatry [place] [phone] Zhanna Mistry [facility] [place] [address] Social History Tobacco Use Types Packs/Day Years [...] Visit (TeleHealth) Psychiatry [place] [phone] Isaura García [facility] [place] [address] documented as of this encounter Visit Diagnoses Not on filedocumented in this encounter Care Teams Payroll Tax Specialist Relationship Specialty Start Date End Date Virginie Gudino, BOX SEALING INSPECTOR [address] [place] [address] PCP - General Family Medicine 06/16/18 07/31/24 documented as of this encounter
--- OUTSIDE RECORDS SUMMARY | 2024-10-05 10:49 | XMS_ITS | Encounter Summary ---
Author Organization [facility] [place] [address] Care Team Providers Care Transportation Lead Name Role Phone MariettaVirginie ventura DANNA Primary Care Provider [phone] Encounter Details Date Type Department Care Team (Latest Contact Info) Description 04/07/2019 11:15 AM EDT Laboratory Appointment Lab [address] [place] [address] High risk medication use Social History Tobacco Use Types Packs/Day Years [...] Visit (TeleHealth) Psychiatry [place] [phone] Isaura García APRN [facility] [address] documented as of this encounter Procedures Procedure Name Priority Date/Time Associated Diagnosis Comments T3 TOTAL Routine 04/07/2019 11:27 AM EDT High risk medication use TSH Routine 04/07/2019 11:27 AM EDT High risk medication use T4, FREE Routine 04/07/2019 11:27 AM EDT High risk medication use LITHIUM LEVEL Routine 04/07/2019 11:27 AM EDT High risk medication use BASIC METABOLIC PANEL Routine 04/07/2019 11:27 AM EDT High risk medication use documented in this encounter Results * T3 Total (04/07/2019 11:27 AM EDT) T3 Total 82 75 - 170 ng/dL [facility] Blood specimen (specimen) 04/07/2019 11:27 AM EDT 04/07/2019 11:34 AM EDT Narrative Resulting Agency Comment Spec In Lab Deonte Mauro MD CHEMISTRY ORDERABLES Performing Organization Address City/[facility]/ZIP Co de Phone Number [facility] [place] [place] [address] * TSH (04/07/2019 11:27 AM EDT) Thyroid Stimulating Hormone 1.74 0.27 - 4.20 mcIU/mL [facility] Blood specimen (specimen) 04/07/2019 11:27 AM EDT 04/07/2019 11:34 AM EDT Narrative Resulting Agency Comment Spec In Lab Deonte Mauro MD CHEMISTRY ORDERABLES [facility] [place] [address] * T4, free (04/07/2019 11:27 AM EDT) Free T4 1.13 0.93 - 1.70 ng/dL [facility] Blood specimen (specimen) 04/07/2019 11:27 AM EDT 04/07/2019 11:34 AM EDT Narrative Resulting Agency Comment Spec In Lab Deonte Mauro MD CHEMISTRY ORDERABLES Performing Organization Address [facility] Co de Phone Number [facility] [place] [address] * Ridgely level (04/07/2019 11:27 AM EDT) Ridgely 0.89 <=1.20 mmol/L [facility] Comment: Therapeutic level for bipolar depression: 0.60-1.20 mmol/L Action Level: ?? Acute toxicity: ?>4.00 mmol/L ?? Chronic toxicity: ??>1.50 mmol/L Values greater than or equal to the action level necessitate clinical intervention. ??Values less than this level may necessitate intervention based on clinical condition of the patient. Ref: ??Gerald? s Toxicologic Emergencies 6th ed 1998; p. 967 Blood specimen (specimen) 04/07/2019 11:27 AM EDT 04/07/2019 11:34 AM EDT Narrative Resulting Agency Comment Spec In Lab Deonte Mauro MD CHEMISTRY ORDERABLES Performing Organization Address [facility] Co de Phone Number [facility] [place] [address] * (ABNORMAL) Basic Metabolic Panel (non-fasting) (04/07/2019 11:27 AM EDT) Glucose 114 65 - 199 mg/dL [facility] Comment:Diabetes: >=200 mg/d L plus symptoms Blood Urea Nitrogen 21(H) 8 - 18 mg/dL [facility] Creatinine 0.83 0.70 - 1.20 mg/dL [facility] Sodium 142 135 - 145 mmol/L [facility] Potassium 3.9 3.5 - 5.0 mmol/L [facility] Comment: Please note: ??Patients with WBC >100,000 may have falsely elevated Potassium levels. ??For accurate Potassium quantification in these patients send serum separator tube ([facility] top) for subsequent determinations. ??Contact the Clinical Chemistry Laboratory if there are any questions. Chloride 105 98 - 107 mmol/L [facility] Carbon Dioxide 27 22 - 31 mmol/L [facility] Anion Gap 10 5 - 15 mmol/L [facility] Calcium 10.4 8.5 - 10.5 mg/dL [facility] Est Glomerular Filtration Rate 82 >=60 mL/min/1. 73 m?? [facility] Comment: The eGFR was calculated using the CKD-EPI equation. As with all creatinine based estimates of kidney function, eGFR values calculated with the CKD-EPI equation are not accurate in patients with acute kidney failure, extremes of body mass or the acutely ill. [email or web address]/Big [email or web address] eGFR 95 >=60 mL/min/1. 73 m?? [facility] Comment: The eGFR was calculated using the CKD-EPI equation. As with all creatinine based estimates of kidney function, eGFR values calculated with the CKD-EPI equation are not accurate in patients with acute kidney failure, extremes of body mass or the acutely ill. http://Fitmoo/DHnkf Blood specimen (specimen) 04/07/2019 11:27 AM EDT 04/07/2019 11:34 AM EDT Narrative Resulting Agency Comment Spec In Lab Deonte Mauro MD CHEMISTRY ORDERABLES [facility] [place] [address] documented in this encounter Visit Diagnoses Diagnosis High risk medication use Encounter for long-term (current) use of other medications documented in this encounter Care Teams Transportation Lead Relationship Specialty Start Date End Date Virginie Gudino, DANNA [address] [facility] [place] [address] PCP - General Family Medicine 06/16/18 07/31/24 documented as of this encounter
--- OUTSIDE RECORDS SUMMARY | 2024-10-05 10:49 | XMS_ITS | Encounter Summary ---
Author Organization [facility] [place] [address] Care Team Providers Care Upholsterer Outside Name Role Phone Virginie Gudino APRN Primary Care Provider [phone] Reason for Visit * Reason Onset Date Comments Medication Refill 08/11/2018 Encounter Details Date Type Department Care Team (Late st Contact Info) Description 08/11/2018 Refill Psychiatry [place] [phone] Ugo Pearl, RN Social History Tobacco Use [...] Visit (TeleHealth) Psychiatry [place] [phone] Isaura García APRN [facility] [place] [address] documented as of this encounter Visit Diagnoses Not on filedocumented in this encounter Care Teams Upholsterer Outside Relationship Specialty Start Date End Date Virginie Gudino APRN [address] [place] [address] PCP - General Family Medicine 06/16/18 07/31/24 documented as of this encounter
--- OUTSIDE RECORDS SUMMARY | 2024-10-05 10:49 | XMS_ITS | Encounter Summary ---
Author Organization [facility] [place] [address] Care Team Providers Care Public Speaking Teacher Name Role Phone Virginie Gudino APRN Primary Care Provider Encounter Details Date Type Department Care Team (Late st Contact Info) Description 09/27/2018 Orders Only Psychiatry [place] [phone] Laura Villalobos MD [facility] [place] [address] Social History Tobacco Use Types Packs/Day Years [...] Visit (TeleHealth) Psychiatry [place] [phone] Isaura García APRN [facility] [place] [address] documented as of this encounter Visit Diagnoses Not on filedocumented in this encounter Care Teams Public Speaking Teacher Relationship Specialty Start Date End Date Virginie Gudino APRN [address] [place] [address] PCP - General Family Medicine 06/16/18 07/31/24 documented as of this encounter
--- OUTSIDE RECORDS SUMMARY | 2024-10-05 10:49 | XMS_ITS | Encounter Summary ---
Author Organization [facility] Address [facility] [place] [address] Care Team Providers Care Furniture Removalist'S Assistant Name Role Phone Virginie Gudino APRN Primary Care Provider [phone] Encounter Details Date Type Department Care Team (Late st Contact Info) Description 03/22/2019 Telephone Psychiatry [place] [phone] Laura Villalobos MD [facility] [place] [address] Social History Tobacco Use Types Packs/Day Years [...] Miscellaneous Notes * Telephone Encounter - Laura Villalobos C - 03/22/2019 9:36 AM EDT [phone] (M) I called Ms. Silva back - she had spoken to the covering physician while I was out of the office. She reports she's doing ok now but is wondering about some physical symptom. She feels like she's been more tired and cold and is wondering about having her labs drawn for thyroid and lithium. Ather last appointment she was to email me her recent lab draw, however that was likely more than a year ago at this time she is likely due for screening labs now. Will order the following labs: TSH and lithium T3 and T4 BUN/Cr [place] level She denies SI intent or plan, and reports she could call the crisis line and seek help if her thoughts escalated. She sounded calm and pleasant on the phone. documented in this encounter Plan of Treatment Upcoming Encounters Date Type Department Care Team (Late st Contact Info) Description 11/09/2024 11:30 AM EST TH Visit (TeleHealth) Psychiatry [place] [address] Isaura García APRN [facility] [place] [address] documented as of this encounter Results * (ABNORMAL) Basic Metabolic Panel (non-fasting) (04/07/2019 11:27 AM EDT) Glucose 114 65 - 199 mg/dL [facility] Comment:Diabetes: >=200 mg/d L plus symptoms Blood Urea Nitrogen 21(H) 8 - 18 mg/dL [facility] Creatinine 0.83 0.70 - 1.20 mg/dL [facility] Sodium 142 135 - 145 mmol/L [facility] Potassium 3.9 3.5 - 5.0 mmol/L [facility] Comment: Please note: ??Patients with WBC >100,000 may have falsely elevated Potassium levels. ??For accurate Potassium quantification in these patients send serum separator tube (gold top) for subsequent determinations. ??Contact the Clinical Chemistry Laboratory if there are any questions. Chloride 105 98 - 107 mmol/L [facility] Carbon Dioxide 27 22 - 31 mmol/L [facility] Anion Gap 10 5 - 15 mmol/L [facility] Calcium 10.4 8.5 - 10.5 mg/dL [facility] Est Glomerular Filtration Rate 82 >=60 mL/min/1. 73 m?? [facility] Comment: The eGFR was calculated using the CKD-EPI equation. As with all creatinine based estimates of kidney function, eGFR values calculated with the CKD-EPI equation are not accurate in patients with acute kidney failure, extremes of body mass or the acutely ill. http://[employer]/[facility]ASH[facility]kf eGFR 95 >=60 mL/min/1. 73 m?? [facility] Comment: The eGFR was calculated using the CKD-EPI equation. As with all creatinine based estimates of kidney function, eGFR values calculated with the CKD-EPI equation are not accurate in patients with acute kidney failure, extremes of body mass or the acutely ill. http://[employer]/[facility] Blood specimen (specimen) 04/07/2019 11:27 AM EDT 04/07/2019 11:34 AM EDT Narrative Resulting Agency Comment Spec In Lab Deonte Mauro MD CHEMISTRY ORDERABLES Performing Organization Address [facility] de Phone Number [facility] [place] [address] * [place] level (04/07/2019 11:27 AM EDT) [place] 0.89 <=1.20 mmol/L [facility] Comment: Therapeutic level for [...] Mauro MD CHEMISTRY ORDERABLES Performing Organization Address [facility] Co de Phone Number [facility] [place] [place] [address] * T3 Total (04/07/2019 11:27 AM EDT) T3 Total 82 75 - 170 ng/dL [facility] Blood specimen (specimen) 04/07/2019 11:27 AM EDT 04/07/2019 11:34 AM EDT Narrative Resulting Agency Comment Spec In Lab Deonte Mauro MD CHEMISTRY ORDERABLES [facility] [place] [place] [address] * T4, free (04/07/2019 11:27 AM EDT) Free T4 1.13 0.93 - 1.70 ng/dL [facility] Blood specimen (specimen) 04/07/2019 11:27 AM EDT 04/07/2019 11:34 AM EDT Narrative Resulting Agency Comment Spec In Lab Deonte Mauro MD CHEMISTRY ORDERABLES [facility] [place] [place] [address] * TSH (04/07/2019 11:27 AM EDT) Thyroid Stimulating Hormone 1.74 0.27 - 4.20 mcIU/mL [facility] Blood specimen (specimen) 04/07/2019 11:27 AM EDT 04/07/2019 11:34 AM EDT Narrative Resulting Agency Comment Spec In Lab Deonte Mauro MD CHEMISTRY ORDERABLES [facility] [place] [address] documented in this encounter Visit Diagnoses Diagnosis High risk medication use- Primary Encounter for long-term (current) use of other medications documented in this encounter Care Teams Furniture Removalist'S Assistant Relationship Specialty Start Date End Date Virginie Gudino, DANNA [address] [place] [address] PCP - General Family Medicine 06/16/18 07/31/24 documented as of this encounter
--- OUTSIDE RECORDS SUMMARY | 2024-10-05 10:49 | XMS_ITS | Encounter Summary ---
Author Organization [facility] [place] [address] Care Team Providers Care Technology Training Associate Name Role Phone MariettaVirginie ventura DANNA Primary Care Provider [phone] Encounter Details Date Type Department Care Team (Late st Contact Info) Description 09/09/2021 11:00 AM EDT TH Visit (TeleHealth) Psychiatry [place] [address] Laura Joseph APRN [facility] [place] [address] Bipolar I disorder with depression (Primary Dx); Anxiety Social History Tobacco Use Types Packs/Day [...] Progress Notes * Laura Joseph APRN - 09/09/2021 11:00 AM EDT ESTABLISHED ADULT PATIENT OFFICE VISIT NOTE Shireen Fraziermadge gave permission for and was seen for today's appointment with a Video Office Visit. During this visit they were located in [place]. Shireen Ricardo is aware that for any urgent matter they can call [phone]. Time Spent: 30 minutes Attendee(s): Shireen Silva [...] texting with sister in law; they were having a good conversation but states she felt isolate doing the yardwork by herself. [place] physically uncomfortable during panic attack-chest tightness, heart racing. First panic attack in a long time. Used Ativan with good effect No 'bad news' in town (last time discussed drug ring, which was stressful for Shireen). Recently drank 'enough to pass out' twice in the last couple of weeks. Does not remember the events. The first night she talks about, her son [...] sent to her Health Changes: Reviewed labs ([place] 0.9). No concerns though will keep an eye on Calcium Work/Life/Family Updates: Going away to [place] with for their anniversary (Sep 12)-looking forward [...] 6 (Mild Depression) 13 (Moderate Depression) 6 (MildDepression) Little interest or pleasure (Patient) Several days [...] trials: ?? Celexa ?Venlafaxine ?Fluoxetine ?Bupropion ?Risperidone ?[place] (current at 600 mg and 900 [...] and normal rhythm ?? Language: fluent in andorran ?? Mood:I am alrght. ?? Affect: full [...] to passive suicidal ideation and denies homicidal ideation. Protective factors include: family and community support and engaged in medical and/or mental health care. We carefully reviewed office and emergency contact info and when to contact our crisis lineat . Symptoms of lithium toxicity: Diarrhea nausea or vomiting muscle weakness tremors Drowsiness lack of coordination twitching or spasms moderate confusion or impaired consciousness agitation confusion giddiness blurred vision ringing in the ears muscle stiffness, tightness, or pain significantly increased urine output low blood pressure PLAN: ?? Medications instructions below: [place] 600 mg AM, 900 mg HS [...] Visit (TeleHealth) Psychiatry [place] [phone] Isaura García APRN [facility] [address] documented as of this encounter Visit Diagnoses Diagnosis Bipolar I disorder with depression- Primary Bipolar I disorder, most recent episode (or current) depressed, unspecified Anxiety Anxiety state, unspecified documented in this encounter Care Teams Technology Training Associate Relationship Specialty Start Date End Date Virginie Gudino, BLENDING MACHINE OPERATOR [address] [place] [address] PCP - General Family Medicine 06/16/18 07/31/24 documented as of this encounter
--- OUTSIDE RECORDS SUMMARY | 2024-10-05 10:49 | XMS_ITS | Encounter Summary ---
Author Organization [facility] [place] [address] Care Team Providers Care Ems Manager Name Role Phone Virginie Gudino DANNA Primary Care Provider [phone] Reason for Visit * Reason Onset Date Comments Medication Refill 10/21/2019 Encounter Details Date Type Department Care Team (Late st Contact Info) Description 10/21/2019 Refill Psychiatry [place] [phone] Zhanna Mistry [facility] [place] [address] Social History Tobacco Use Types Packs/Day Years [...] Visit (TeleHealth) Psychiatry [place] [phone] Isaura García [facility] [place] [address] documented as of this encounter Visit Diagnoses Not on filedocumented in this encounter Care Teams Ems Manager Relationship Specialty Start Date End Date Virginie Gudino, AIR CONDITIONING MANAGER [address] [place] [address] PCP - General Family Medicine 06/16/18 07/31/24 documented as of this encounter
--- OUTSIDE RECORDS SUMMARY | 2024-10-05 10:49 | XMS_ITS | Encounter Summary ---
Author Organization [facility] [place] [address] Care Team Providers Care Line Manager Name Role Phone Virginie Gudino APRN Primary Care Provider [phone] Encounter Details Date Type Department Care Team (Late st Contact Info) Description 03/09/2019 Telephone Psychiatry and Behavioral Health at [facility] [place] [phone] Zofia Howard MD [facility] [place] [address] Social History Tobacco Use Types Packs/Day Years [...] encounter Miscellaneous Notes * Telephone Encounter - Zofia Howard MD - 03/09/2019 4:59 PM EDT Received notification from clinic staff re: pt's responses to questionnaire, in particular answering several days on the Would be better off part of PHQ9. Primary provider not in clinic today. Called pt at [phone]. Pt laughs and dismisses the concern. I've [...] out to pt re: date of follow up, currently scheduled for March. documented in this encounter Plan of Treatment Upcoming Encounters Date Type Department Care Team (Late st Contact Info) Description 11/09/2024 11:30 AM EST TH Visit (TeleHealth) Psychiatry [place] [address] Isaura García CLIENT ACCOUNT ASSISTANT [facility] [place] [address] documented as of this encounter Visit Diagnoses Not on filedocumented in this encounter Care Teams Line Manager Relationship Specialty Start Date End Date Virginie Gudino APRN [address] [place] [address] PCP - General Family Medicine 06/16/18 07/31/24 documented as of this encounter
--- OUTSIDE RECORDS SUMMARY | 2024-10-05 10:49 | XMS_ITS | Encounter Summary ---
Author Organization [facility] [place] [address] Care Team Providers Care Fur Repairer Name Role Phone MariettaVirginie ventura DANNA Primary Care Provider Encounter Details Date Type Department Care Team (Late st Contact Info) Description 02/18/2021 9:30 AM EDT TH Visit (TeleHealth) Psychiatry [place] [address] Laura Joseph APRN [facility] [place] [address] Bipolar I disorder with depression (Primary Dx); [...] Progress Notes * Laura Joseph APRN - 02/18/2021 9:30 AM EDT ESTABLISHED ADULT PATIENT OFFICE VISIT NOTE Shireen Silva gave permission for and was seen for today's appointment with a Telephone Office Visit. During this visit they were located in [place]. Shireen Ricardo is aware that for any urgent matter they can call [phone]. Time Spent: 25 minutes Attendee(s): Shireen Silva [...] Cricut ?? Visiting parents/father in law/son for [employer] in [place], [place]. Will cook with son for the [...] needed for Sleep. 30 tablet 3 ??? gabapentin (Neurontin) 300 mg Capsule Take 600 mg by mouth nightly. ??? LORazepam (Ativan) 0.5 mg Tablet Take 1 tablet by mouth every 6 hours as needed for Anxiety. 30tablet 0 ??? cetirizine (ZYRTEC) 10 mg tablet [...] trials: ?? Celexa ?Venlafaxine ?Fluoxetine ?Bupropion ?Risperidone ?[place] (current at 600 mg and 900 mg [...] and normal rhythm ?? Language: fluent in ugandan ?? Mood: 'pretty good' ?? Affect: full [...] 12/17/20 lithium level .80 Reviewed symptoms of [place] toxicity, including tremor/changes in musclecontrol (ataxia), weakness, [...] at . PLAN: ?? Medications instructions below: [place] 600 mg AM, 900 mg HS Ambien [...] Visit (TeleHealth) Psychiatry and [place] [address] Isaura García APRN [facility] [place] [address] documented as of this encounter Visit Diagnoses Diagnosis Bipolar I disorder with depression- Primary Bipolar I disorder, most recent episode (or current) depressed, unspecified Anxiety Anxiety state, unspecified documented in this encounter Care Teams Fur Repairer Relationship Specialty Start Date End Date Virginie Gudino APRN [address] [place] [address] PCP - General Family Medicine 06/16/18 07/31/24 documented as of this encounter
--- OUTSIDE RECORDS SUMMARY | 2024-10-05 10:49 | XMS_ITS | Encounter Summary ---
Author Organization [facility] [place] [address] Care Team Providers Care Trial Management Associate Name Role Phone Virginie Gudino DANNA Primary Care Provider [phone] Encounter Details Date Type Department Care Team (Late st Contact Info) Description 10/11/2018 1:00 PM EST Office [place] [address] Dorie Blanco APRN [facility] [address] [place] [address] Small intestinal bacterial overgrowth Social History Tobacco Use Types Packs/Day Years [...] kg (156 lb 1.6 oz) 10/11/2018 1:04 P M EST Height 167.6 cm (5' 6) 10/11/2018 1:04 PM EST Body Mass Index 25.2 10/11/2018 1:04 PM EST documented in this encounter Progress Notes * Dorie Blanco RN - 10/11/2018 1:00 PM EST _25___minutes of this__30__-minute visit were spent in face to face discussion and/or counseling the patient, regarding symptoms and treatment options as detailed below. Pt is here for follow up regarding progress with medical regimen. Positive for sibo Just finished course of Rifaximin. Her loose stools have improved. She has a stool every other day. At times stools can be hard. Using less pepto and kaopectate. Having less mucous in stools. No fecal leakage. Also, met with waste disposal plant operator. She is slowly expanding diet. Weight stable. No upper gi sx. No significant post-prandial sx. Pt is meeting with waste disposal plant operator today. Pt started Vitamin D3 supplementation two weeks ago. Will repeat blood work in few months. Pt aware. Plan: 1. Pt sx are improving. Would continue to work with waste disposal plant operator and expanding diet. 2. Repeat vitamin D level in a few months 3. Pt to call gi prn documented in this encounter Plan of Treatment Upcoming Encounters Date Type Department Care Team (Late st Contact Info) Description 11/09/2024 11:30 AM EST TH Visit (TeleHealth) Psychiatry [place] [address] Isaura García APRN [facility] [place] [address] documented as of this encounter Visit Diagnoses Diagnosis Small intestinal bacterial overgrowth documented in this encounter Care Teams Trial Management Associate Relationship Specialty Start Date End Date Virginie Gudino APRN [address] [place] [address] PCP - General Family Medicine 06/16/18 07/31/24 documented as of this encounter
--- OUTSIDE RECORDS SUMMARY | 2024-10-05 10:49 | XMS_ITS | Encounter Summary ---
Author Organization [facility] [address] Care Team Providers Care Middle School Coach Name Role Phone MariettaVirginie ventura DANNA Primary Care Provider [phone] Encounter Details Date Type Department Care Team (Late st Contact Info) Description 01/21/2021 9:00 AM EST TH Visit (TeleHealth) Psychiatry [place] [address] Laura Joseph APRN [facility] [place] [address] Bipolar I disorder with depression (Primary Dx) Social History Tobacco Use Types Packs/Day Years [...] Progress Notes * Laura Joseph APRN - 01/21/2021 9:00 AM EST ESTABLISHED ADULT PATIENT OFFICE VISIT NOTE Shireen Fraziermadge gave permission for and was seen for today's appointment with a Telephone Office Visit. During this visit they were located in [place]. Shireen Silva is aware that for any urgent matter they can call [phone]. Time Spent: 35 minutes Attendee(s): Shireen Silva [...] been helpful in conjunction with gabapentin (prescribed for Periodic Limb Movement disorder) ??? Feeling more depressed due and winter-gets overwhelmed easily and that triggers depression. Lawtey has been great (no diana for at least 8 years, when started Lawtey) ??? Feels she is currently at her [...] ?? Has three rabbits and one dog (lab/RedSeguro mountain dog) ?? Cooks; son helps sometimes [...] IN THE EVENING ( complete level at [facility]) 150 tablet 5 ??? FLUoxetine (PROzac) [...] trials: ?? Celexa ?Venlafaxine ?Fluoxetine ?Bupropion ?Risperidone ?[place] (current at 600 mg and 900 mg [...] and normal rhythm ?? Language: fluent in kenyan ?? Mood: okay ?? Affect: full ?? [...] 12/17/20 lithium level .80 Reviewed symptoms of Lawte[place] toxicity, including tremor/changes in musclecontrol (ataxia), weakness, [...] in future due to protective effects of Lawtey. She denies SI/HI and feels like she is functioning at her normal level at this time. Feeling isolated with COVID and winter though is reading and cooking at home. Safety Assessment: Shireen Silva denies suicidal and homicidal ideation. Protective factors include: family and community support and engaged in medical and/or mental health care. We carefully reviewed office and emergency contact info and when to contact our crisis line at . PLAN: ?? Medications instructions below: [place]te[place] 600 mg AM, 900 mg HS Ambien [...] Visit (TeleHealth) Psychiatry [place] [address] Isaura García APRN [facility] [place] [address] documented as of this encounter Visit Diagnoses Diagnosis Bipolar I disorder with depression- Primary Bipolar I disorder, most recent episode (or current) depressed, unspecified documented in this encounter Care Teams Middle School Coach Relationship Specialty Start Date End Date Virginie Gudino APRN [address] [place] [address] PCP - General Family Medicine 06/16/18 07/31/24 documented as of this encounter
--- OUTSIDE RECORDS SUMMARY | 2024-10-05 10:49 | XMS_ITS | Encounter Summary ---
Author Organization [facility] [place] [address] Care Team Providers Care Manager Heart Name Role Phone Virginie Gudino APRN Primary Care Provider [phone] Reason for Visit * Reason Onset Date Comments Medication Refill 09/13/2018 Encounter Details Date Type Department Care Team (Late st Contact Info) Description 09/13/2018 Refill Psychiatry [place] [phone] Ugo Pearl, RN Social History Tobacco Use [...] Visit (TeleHealth) Psychiatry [place] [address] Isaura García APRN [facility] [place] [address] documented as of this encounter Visit Diagnoses Not on filedocumented in this encounter Care Teams Manager Heart Relationship Specialty Start Date End Date Virginie Gudino APRN [address] [address] PCP - General Family Medicine 06/16/18 07/31/24 documented as of this encounter
--- OUTSIDE RECORDS SUMMARY | 2024-10-05 10:49 | XMS_ITS | Encounter Summary ---
Author Organization [facility] [place] [address] Care Team Providers Care Heating Systems Installer Name Role Phone MariettaVirginie ventura DANNA Primary Care Provider [phone] Encounter Details Date Type Department Care Team (Late st Contact Info) Description 09/30/2021 10:30 AM EDT TH Visit (TeleHealth) Psychiatry [place] [address] Laura Joseph APRN [facility] [place] [address] Bipolar I disorder with depression (Primary Dx); Anxiety; Alcohol use disorder, mild, abuse Social History [...] Progress Notes * Laura Joseph APRN - 09/30/2021 10:30 AM EDT ESTABLISHED ADULT PATIENT OFFICE VISIT NOTE Shireen Silva gave permission for and was seen for today's appointment with a Video Office Visit. During this visit they were located in [place]. Shireen Ricardo is aware that for any urgent matter they can call [phone]. Time Spent: 30 minutes Attendee(s): Shireen Silva [...] first day and stopped. Discussed restarting at 25 mg if she would like. Admits to being nervous about side effects. Prozac still at 30 mg. Feels it has been helpful Had one glass of wine at dinner while in [place] for anniversary. Then went one week without drinking at all. Finds that preparing food for dinner is the time when she wants to drink the most. Trying to food prep in am to avoid a long time in the kitchen. Son is helping prepare dinner too, whichis helpful Has had two panic attacks since we talked last. Yesterday had one talking with her son-all of sudden came on out of nowhere. Was able to verbalize to her son what was going on and he helped her through it with conversation. Discusses the importance of her openness with her kids about her mental health Anxious about holiday season Health Changes: Reviewed labs ([place] 0.9). No concerns though will keep an eye on Calcium-Plan to recheck after [place] Work/Life/Family Updates: Going to visit family in [place] for [place] Kids all doing well-will not be going away for Zechariah works at [employer]-usually home on weekends Working on holiday cards [...] trials: ?? Celexa ?Venlafaxine ?Fluoxetine ?Bupropion ?Risperidone ?[place] (current at 600 mg and 900 [...] and normal rhythm ?? Language: fluent in syriac ?? Mood:I'm okay. ?? Affect: full ?? [...] am not putting pressure on Shireen to start.Plan to recheck labs after [place]-hypercalcemia has been an issue in the past and we discussed this a bit. Safety Assessment: Shireen Silva admits to passive [...] blood pressure PLAN: ?? Medications instructions below: [place] 600 mg AM, 900 mg HS Ambien 2.5 mg-5 mg HS PRN Prozac 30 mg qd (with plan to increase to 40 mg if well tolerated) Ativan 0.5 mg PRN (last filled 03/20) Naltrexone 25 mg daily (may or may not start) ?? Additional treatment recommendations: ?? Therapy: not currently interested-did send [employer] resources ?? Labs: will obtain labs in [...] Visit (TeleHealth) Psychiatry [place] [address] Isaura García APRN [facility] [place] [address] documented as of this encounter Visit Diagnoses Diagnosis Bipolar I disorder with depression- Primary Bipolar I disorder, most recent episode (or current) depressed, unspecified Anxiety Anxiety state, unspecified Alcohol use disorder, mild, abuse documented in this encounter Care Teams Heating Systems Installer Relationship Specialty Start Date End Date Virginie Gudino APRN [address] [place] [address] PCP - General Family Medicine 06/16/18 07/31/24 documented as of this encounter
--- OUTSIDE RECORDS SUMMARY | 2024-10-05 10:49 | XMS_ITS | Encounter Summary ---
Author Organization [facility] [place] [address] Care Team Providers Care Manager Flight Name Role Phone Virginie Gudino APRN Primary Care Provider [phone] Encounter Details Date Type Department Care Team (Late st Contact Info) Description 10/11/2018 1:30 PM EST Clinical [place] [phone] Sandra Al[address]ado RD [facility] [place] [address] Small intestinal bacterial overgrowth Social History Tobacco [...] kg (156 lb 1.6 oz) 10/11/2018 1:10 P M EST Height 167.6 cm (5' 6) 10/11/2018 1:10 PM EST Body Mass Index 25.19 10/11/2018 1:10 PM EST documented in this encounter Progress Notes * Sandra Alvarado RD - 10/11/2018 1:30 PM [...] but is having constipation. She is maintaining gluten free because she feels like she doesn't tolerate [...] me as needed (on same day as Dorie) documented in this encounter Plan of Treatment Upcoming Encounters Date Type Department Care Team (Late st Contact Info) Description 11/09/2024 11:30 AM EST TH Visit (TeleHealth) Psychiatry [place] [phone] Isaura García APRN [facility] [place] [address] documented as of this encounter Visit Diagnoses Diagnosis Small intestinal bacterial overgrowth documented in this encounter Care Teams Manager Flight Relationship Specialty Start Date End Date Virginie Gudino, DANNA [address] [place] [address] PCP - General Family Medicine 06/16/18 07/31/24 documented as of this encounter
--- OUTSIDE RECORDS SUMMARY | 2024-10-05 10:49 | XMS_ITS | Encounter Summary ---
Author Organization [facility] [place] [address] Care Team Providers Care Sheet Metal Pattern Cutter Name Role Phone Virginie Gudino DANNA Primary Care Provider [phone] Encounter Details Date Type Department Care Team (Latest Contact Info) Description 11/12/2020 11:30 AM EST TH Visit (TeleHealth) Psychiatry [place] [address] Zhanna Mistry APRN [facility] [place] [address] Bipolar affective disorder, remission status unspecified (Primary Dx) Social History Tobacco Use Types [...] of this encounter Progress Notes * Zhanna Misrty APRN - 11/12/2020 11:30 AM EST ESTABLISHED ADULT PATIENT OFFICE VISIT NOTE Shireen Silva gave permission for and was seen for today's appointment with a Telephone Office Visit. During this visit they were located in [place]. Shireen Ricardo is aware that for any urgent matter they can call [phone]. (prefers telephone to telehealth) Time Spent: 30 [...] with friend Work/Life/Family Updates: ?? mother had ID, doing better now Substance Use: ?? 1-2 [...] IN THE EVENING ( complete level at [facility]) 150 tablet 5 ??? FLUoxetine (PROzac) 20 [...] of trial): ??Celexa ?Venlafaxine ?Fluoxetine ?Bupropion ?Risperidone ?[place] (current at 600 mg and 900 mg [...] and normal rhythm ?? Language: fluent in bolivian ?? Mood: better ?? Affect: mood-congruent ?? [...] use disorder CURRENT ASSESSMENT: Mood is stable. [place] continues to beneficial. Sleep study revealed periodic limb movement, started on Requip. Unclear if helpful yet. We will monitor. Reduced alcohol use. Continues to find benefit with regular exercise. Recent labs WNL. Need new [place] level. I have orderedpatient would like sent to her local hospital ( message sent to GARTH Pearl). This proposal lead writer discussed with patient that I will be transitioning to a new role in the psychiatry department and patient will be transferred to a new psychiatric provider in 2020. We discussed transferoptions and patient will be transferred to: new [facility] PLAN: ?? Safety:?? reviewed office and emergency contact info ?? Medications: ?? [place]: 600mg SR in AM and 900mg in PM ?? Prozac: 20mg PO daily ?? Ambien: 5mg daily ?? Ativan: 0.5mg PO daily PRN ( rare use does not need refill) ?? LABS: [place] level ordered ?? Additional treatment recommendations: ?? [...] Visit (TeleHealth) Psychiatry [place] [address] Isaura García APRN [facility] [place] [address] documented as of this encounter Visit Diagnoses Diagnosis Bipolar affective disorder, remission status unspecified- Primary documented in this encounter Care Teams Sheet Metal Pattern Cutter Relationship Specialty Start Date End Date Virginie Gudino, SCIENCE EDITOR [address] [facility] [place] [address] PCP - General Family Medicine 06/16/18 07/31/24 documented as of this encounter
--- OUTSIDE RECORDS SUMMARY | 2024-10-05 10:49 | XMS_ITS | Encounter Summary ---
Author [facility] [place] [address] Care Team Providers Care Pedicab Driver Name Role Phone Virginie Gudino APRN Primary Care Provider [phone] Encounter Details Date Type Department Care Team (Late st Contact Info) Description 09/10/2018 5:00 PM EDT Tech [place] [address] Maya Solano [place] [address] Loose stools; Small intestinal bacterial overgrowth Social History Tobacco [...] as of this encounter Progress Notes * Maya Solano APRN - 09/10/2018 5:00 PM EDT Gastroenterology Breath Test Report Patient: Shireen Silva Date Of : 1965 PCP: Virginie Gudino APRN Referring: Dorie Blanco STUDY DATE: 09/10/2018 PROVIDER: Maya Solano APRN INDICATION: Loose stools ppmH2 ppmCH4 CO2(f) Fasting Baseline 11 7 5.3/1.184 Administer sugar: Lactulose 10g with 90 mL H2O Sample Time ppmH2 ppmCH4 CO2(f) 1. 15 min 9 6 4.1/1.84 2. 30 min 8 5 3.9/1.56 3. 45 min 8 6 3.8/1.60 4. 60 min 11 6 4.0/1.52 5. 75 min 21 10 3.8/1.60 6. 90 min 49 13 4.1/1.48 7. 105 min 73 15 4.0/1.52 8. 120 min 72 14 4.3/1.41 Interpretation: Positive breath test for small intestinal bacterial overgrowth (SIBO). Patient reported no symptoms during the test. Patient had excess production of methane which can beassociated with constipation. Clinical interpretation is based on the Hydrogen and Methane-Based Breath Testing in Gastrointestinal Disorders: The [place] Consensus (Am J Gastroenterol 2017; 112(5):775-84. Apositive breath test is defined as a rise in hydrogen production >20 ppm compared to baseline within 90 minutes. Methane-positive is defined by at least 10 ppm production of methane. Signed, Maya Solano APRN Gastroenterology and Hepatology [place] [id number] P: [phone] F: [phone] Copy: Dorie Gudino APRN documented in this encounter Plan of Treatment Upcoming Encounters Date Type Department Care Team (Late st Contact Info) Description 11/09/2024 11:30 AM EST TH Visit (TeleHealth) Psychiatry [place] [address] Isaura García APRN [facility] [place] [address] documented as of this encounter Visit Diagnoses Diagnosis Loose stools Abnormal feces Small intestinal bacterial overgrowth documented in this encounter Care Teams Pedicab Driver Relationship Specialty Start Date End Date Virginie Gudino, BRIDGE SAW OPERATOR [address] [place] [address] PCP - General Family Medicine 06/16/18 07/31/24 documented as of this encounter
--- OUTSIDE RECORDS SUMMARY | 2024-10-05 10:49 | XMS_ITS | Encounter Summary ---
Author Organization [facility] [place] [address] Care Team Providers Care Senior Credit Officer Name Role Phone Virginie Gudino DANNA Primary Care Provider [phone] Encounter Details Date Type Department Care Team (Late st Contact Info) Description 09/21/2018 Refill [place] [address] Doire Blanco APRN [facility] DR GASTROENTEROLOGY [place] [address] Small intestinal bacterial overgrowth Social History Tobacco [...] encounter Miscellaneous Notes * Telephone Encounter - Sophy Fajardo RN - [...] Visit (TeleHealth) Psychiatry [place] [address] Isaura García APRN [facility] [place] [address] documented as of this encounter Visit Diagnoses Diagnosis Small intestinal bacterial overgrowth documented in this encounter Care Teams Senior Credit Officer Relationship Specialty Start Date End Date Virginie Gudino APRN [address] [place] [address] PCP - General Family Medicine 06/16/18 07/31/24 documented as of this encounter
--- OUTSIDE RECORDS SUMMARY | 2024-10-05 10:49 | XMS_ITS | Encounter Summary ---
Author Organization [facility] [place] [address] Care Team Providers Care Entry Tech Name Role Phone Virginie Gudino APRN Primary Care Provider [phone] Reason for Visit * Reason Onset Date Comments Medication Refill 07/19/2019 Encounter Details Date Type Department Care Team (Late st Contact Info) Description 07/19/2019 Refill Psychiatry [place] [phone] Ugo Pearl, RN Social History Tobacco Use [...] Visit (TeleHealth) Psychiatry [place] [phone] Isaura García APRN [facility] [place] [address] documented as of this encounter Visit Diagnoses Not on filedocumented in this encounter Care Teams Entry Tech Relationship Specialty Start Date End Date Virginie Gudino APRN [address] [place] [address] PCP - General Family Medicine 06/16/18 07/31/24 documented as of this encounter
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
--- OUTSIDE RECORDS SUMMARY | 2024-10-05 10:49 | XMS_ITS | Encounter Summary ---
Author Organization [facility] [place] [address] Care Team Providers Care Mechanical Commissioning Engineer Name Role Phone Virginie Gudino DANNA Primary Care Provider [phone] Encounter Details Date Type Department Care Team (Late st Contact Info) Description 09/05/2019 11:00 AM EDT Office Visit Psychiatry [place] [address] Zhanna Mistry INSURANCE ANALYST [facility] [address] Bipolar affective disorder, remission status unspecified; Anxiety [...] Progress Notes * Zhanna Mistry APRN - 09/05/2019 11:00 AM [...] doesn't think the Prozac made this worse. Shecontinues to hear music also ?? 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 Having 30 year anniversary and looking forward to this this weekend ?? Can worry about kids and tries to help but also encourage independence Substance Use: ?? 2-3 drinks of wine and putting in coffee mug, wants to cut back. Doesn't like how she feels withit. Safety: Denies SI/HI intent or plan, denies [...] IN THE EVENING ( complete level at [facility]) 150 tablet 5 ??? LORazepam (ATIVAN) 0.5 mg Tablet Take 1 tablet by mouth every 6 hours as needed for Anxiety. 30tablet 0 ??? zolpidem (AMBIEN) 5 mg Tablet [...] has started to cut more in the Spring of 2018. She lives with her and has three sons. She is currently trying to re-engage in therapy. ?? Prior medications trials (dosage, response, side effects, adequacy of trial): ??Celexa ?Venlafaxine ?Fluoxetine ?Bupropion ?Risperidone ?[place] (current at 600 mg and 900 mg [...] and normal rhythm ?? Language: fluent in kinyarwanda ?? Mood: good, less anxious ?? Affect: [...] could consider if these symptoms worsen. She denies any symptoms of diana or hypomania, including increased goal-directed activity, grandiosity, decreased need for sleep, talkativeness, or increased energy. I did express concern about alcohol use, particularly combined with ambien/ativan. She tells me shedrinks around 5:00PM to avoid combining with ambien. Does understand SUBASSEMBLER depression is dangerous when combining sedating medications with alcohol. She is working to reduce her alcohol use. She is denia vated and sees this as an issue. She will consider Naltrexone, agrees to complete hepatic function if starting. Prozac has been very helpful for anxiety. Denies SIB, SI and HI intent or plan. She feels safe. Rare ativan use. She will follow up with her PCP about Thyroid ultrasound. PLAN: ?? Safety:?? reviewed office and emergency contact info ?? Medications: ?? [place]: 600mg SR in AM and 900mg in PM ?? Prozac: 20mg PO daily ?? Ambien: 5mg daily ?? Ativan: 0.5mg PO daily PRN ( rare use does not need refill) ?? LABS: Complete Hepatic function( if considering Naltrexone), [place] level and BMP at [facility] ( nurse Angélica Pearl sent these to [facility]) ?? Additional treatment recommendations: [...] Visit (TeleHealth) Psychiatry [place] [address] Isaura García APRN [facility] [place] [address] documented as of this encounter Visit Diagnoses Diagnosis Bipolar affective disorder, remission status unspecified Anxiety Anxiety state, unspecified documented in this encounter Care Teams Mechanical Commissioning Engineer Relationship Specialty Start Date End Date Virginie Gudino, INSURANCE ANALYST [address] [place] [address] PCP - General Family Medicine 06/16/18 07/31/24 documented as of this encounter
--- OUTSIDE RECORDS SUMMARY | 2024-10-05 10:49 | XMS_ITS | Encounter Summary ---
Author Organization Formerly [facility] [place] [address] Care Team Providers Care House Detective Name Role Phone MariettaVirginie ventura DANNA Primary Care Provider [phone] Encounter Details Date Type Department Care Team (Late st Contact Info) Description 11/11/2021 10:30 AM EST TH Visit (TeleHealth) Psychiatry [place] [address] Laura Joseph APRN [facility] [place] [address] Bipolar I disorder with depression (Primary Dx); [...] Progress Notes * Laura Joseph APRN - 11/11/2021 10:30 AM EST ESTABLISHED ADULT PATIENT OFFICE VISIT NOTE Shireen Silva gave permission for and was seen for today's appointment with a Video Office Visit. During this visit they were located in [place]. Shireen Ricardo is aware that for any urgent matter they can call [phone]. Time Spent: 30 minutes Attendee(s): Shireen Silva Identifying information: Shireen Silva is a 56 y.o. female with history of Bipolar I disorder. Shetransferred to Zhanna Mistry APRN from Dr. Villalobos March 2020. She is here for ongoing follow up. Chief Complaint: History of Present Illness: () (Quality, Severity, Duration, Timing, Context, Modifying factors, Associated S&S) Psychiatric Symptoms: Gradually stopped drinking-has not had alcohol in about two weeks. Talks to son in [place] (oldest son)-she had been drinking quite a bit and called him when drunk. He had a bit of an intervention with her (and her parents noticed a change in behavior and expressed concern). [place] (older), [place] (middle) sons talked to Shireen and discussed the numerous health issues that can come from excessive alcohol use. Mood is much improved, anxiety much less. No panic attacks. I have never see you have a drink of wine and then be happy. This is what her told her when discussing her use of alcohol for anxiety/mood uplift. 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 Around Oct 30 2021-stopped drinking Safety: denies SI, denies HI Pertinent Medication [...] Medication Sig Dispense Refill ??? FLUoxetine (PROzac) 20 mg Capsule Take [...] needed for Sleep. 30 tablet 3 ??? naltrexone (Depade) 50 mg Tablet Take 1 tablet by mouth daily. 30 tablet 0 ??? FLUoxetine (PROzac) 10 mg Capsule Take 1 capsule by mouth daily. In addition to 20 mg (TDD 30 mg) 30 capsule 12 ??? LORazepam (Ativan) 0.5 mg Tablet Take [...] trials: ?? Celexa ?Venlafaxine ?Fluoxetine ?Bupropion ?Risperidone ?[place] (current at 600 mg and 900 mg daily) ?Oxcarbazepine ?Clonazepam ?Lorazepam ?Zolpidem (current at 5 mg nightly PRN insomnia) ?Eszopiclone ?Lurasidone 2017 - felt it made her mood worse Naltrexone-GI side effects Social History: She is to [place] [...] and normal rhythm ?? Language: fluent in italian ?? Mood:I'm doing really good. ?? Affect: full ?? Thought Process: [...] verbalizes depression as her baseline. She has not had alcohol in about two weeks and feels very positive about this. She did not tolerate Naltexone though has stopped drinking alcohol with family support. She presents with positivity and bright affect today and attributes much of her wellness to her family support and encouragement. She has explored [facility] and is interested in seeing one counselor but they do not have openings for new patients. We discussed short term counseling for her anxiety at . Aide further. Will also get labs before our next appointment. Safety Assessment: Shireen Silva denies suicidal ideation [...] blood pressure PLAN: ?? Medications instructions below: [place] 600 mg AM, 900 mg HS Ambien 2.5 mg-5 mg HS PRN Prozac 30 mg qd Ativan 0.5 mg PRN (last filled 03/20) ?? Additional treatment recommendations: ?? Therapy: may have interest ?? Labs: will obtain labs in November (Ca 10.1)-will add PTH to set of labs Patient Instruction/Education provided: Patient provided verbal instructions regarding medication side effects, safety plan in case of feeling unsafe. Patient understands the plan? Yes Signed By: Laura Joseph APRN 11/11/2021 documented in this encounter Plan of Treatment Upcoming Encounters Date Type Department Care Team (Late st Contact Info) Description 11/09/2024 11:30 AM EST TH Visit (TeleHealth) Psychiatry [place] [address] Isaura García APRN [facility] [place] [address] documented as of this encounter Visit Diagnoses Diagnosis Bipolar I disorder with depression- Primary Bipolar I disorder, most recent episode (or current) depressed, unspecified Anxiety Anxiety state, unspecified Alcohol use disorder, mild, abuse documented in this encounter Care Teams House Detective Relationship Specialty Start Date End Date Virginie Gudino APRN [address] [place] [address] PCP - General Family Medicine 06/16/18 07/31/24 documented as of this encounter
--- OUTSIDE RECORDS SUMMARY | 2024-10-05 10:49 | XMS_ITS | Encounter Summary ---
Author Organization Formerly [facility] [place] [address] Care Team Providers Care Unemployment Claims Adjudicator Name Role Phone Virginie Gudino DANNA Primary Care Provider [phone] Encounter Details Date Type Department Care Team (Late st Contact Info) Description 06/17/2021 10:30 AM EDT TH Visit (TeleHealth) Psychiatry [place] [address] Laura Joseph APRN [facility] [place] [address] Bipolar I disorder with depression (Primary Dx); [...] Progress Notes * Laura Joseph APRN - 06/17/2021 10:30 AM EDT ESTABLISHED ADULT PATIENT OFFICE VISIT NOTE Shireen Silva gave permission for and was seen for today's appointment with a Video Office Visit. During this visit they were located in [place]. Shireen Ricardo is aware that for any urgent matter they can call [phone]. Time Spent: 30 minutes Attendee(s): Shireen Silva [...] again when on vacation with family in [place]-about 3 glasses/night (Started mid-April)-started as social engagement with family though continued drinking at home Ambien-usually 5 mg at night Mood is overall 'good' and does not express concern Health Changes: Had LABS at [facility]: Li: 1.1 Na: 142 K: 4.3 Cl: [...] blood pressure Work/Life/Family Updates: Fun vacation at [place]-saw dad and older son in addition to other family Younger son has gotten a job-nights at [employer]-happy with him having a job. They have two cars-he can take one overnight. Substance Use: Alcohol-about 3 glasses/night Safety: denies SI/HI Pertinent Medication Side Effects: denied Questionnaires: PHQ9 Questionnaires Data (Clinic and Pt Entered): last 4 values PHQ-9 QUESTIONNAIRE LAST 4 VALUES (AMB) 09/03/2019 01/17/2021 02/12/2021 04/15/2021 PHQ - 9 Score (Patient) 3 (Minimal Depression) 17 (Moderately Severe Depression) 8 (Mild Depression) 3 (Minimal Depression) Little interest or pleasure (Patient) Several days Nearly every day More than half the days Severaldays Down, depressed, hopeless (Patient) Not at all [...] trials: ?? Celexa ?Venlafaxine ?Fluoxetine ?Bupropion ?Risperidone ?[place] (current at 600 mg and 900 [...] and normal rhythm ?? Language: fluent in dutch ?? Mood:I think I'm pretty good. ?? [...] admitting that she is drinking 2-3 glasses ofwine each night since going on vacation. We discussed the benefits of harm reduction. We also reviewed her recent labs from [facility] (she read them over our video chat as they had not been faxed to us). She denies all signs of lithium toxicity and will continue to monitor (current level 1.1); we discussed decreasing lithium dosing to 600 mg BID if needed, though will redraw labs in August. Shireen verbalizes awareness of lithium toxicity and will reach out if she has concerns. Safety Assessment: Shireen Silva denies suicidal and homicidal ideation. Protective factors include: family and community support and engaged in medical and/or mental health care. We carefully reviewed office and emergency contact info and when to contact our crisis line at . PLAN: ?? Medications instructions below: [place] 600 mg AM, 900 mg HS [...] Visit (TeleHealth) Psychiatry [place] [address] Isaura García APRN [facility] [place] [address] documented as of this encounter Visit Diagnoses Diagnosis Bipolar I disorder with depression- Primary Bipolar I disorder, most recent episode (or current) depressed, unspecified Anxiety Anxiety state, unspecified documented in this encounter Care Teams Unemployment Claims Adjudicator Relationship Specialty Start Date End Date Virginie Gudino APRN [address] [place] [address] PCP - General Family Medicine 06/16/18 07/31/24 documented as of this encounter
--- OUTSIDE RECORDS SUMMARY | 2024-10-05 10:49 | XMS_ITS | Encounter Summary ---
[facility] Organization [facility] [place] [address] Care Team Providers Care Database Marketing Specialist Name Role Phone Virginie Gudino DANNA Primary Care Provider [phone] Encounter Details Date Type Department Care Team (Latest Contact Info) Description 01/03/2021 11:30 AM EST TH Visit (TeleHealth) Psychiatry [place] [address] Zhanna Mistry APRN [facility] [place] [address] Bipolar I disorder with depression Social History [...] Progress Notes * Zhanna Mistry APRN - 01/03/2021 11:30 AM EST ESTABLISHED ADULT PATIENT OFFICE VISIT NOTE Shireen Silva gave permission for and was seen for today's appointment with a Telephone Office Visit. During this visit they were located in [place]. Shireen Ricardo is aware that for any urgent matter they can call [phone]. (prefers telephone to telehealth) Time Spent: 30 [...] THE EVENING ( complete level at [facility]) 150 tablet 5 ??? FLUoxetine [...] of trial): ??Celexa ?Venlafaxine ?Fluoxetine ?Bupropion ?Risperidone ?[place] (current at 600 mg and 900 mg [...] and normal rhythm ?? Language: fluent in vincentian ?? Mood: better today, depressed last night ?? Affect: mood-congruent ?? Thought Process: linear and logical ?? Associations: intact ?? Thought Content: denied homicidal ideation, denied suicidal ideation, no bizarre delusions and no paranoid delusions ?? Perception: denied visual hallucinations reports [...] Will likely benefitfrom re engaging in therapy. History of increased [...] with her dog would be means to groundself. (rare Lorazepam use) No medication changes today, could consider increase in Prozac but I am would be concerned about potential of hypomania. No side effects of current medications and taking consistently. Recent [place] level was WNL. She is working to reduce alcohol use but not quite ready,advised caution with Ambien/Lorazepam. She will increase exercise as means to help mood. Gabapentin helpful for periodic limb movement disorder. This video game script writer discussed with patient that I will be transitioning to a new role in the psychiatry department and patient will be transferred to a new psychiatric provider in 2020. We discussed transferoptions and patient will be transferred to: Nkechi Joseph APRN in January 2021 PLAN: ?? Safety:?? reviewed office and emergency contact info ?? Medications: ?? [place]: 600mg SR in AM and 900mg in PM ?? Prozac: 20mg PO daily ?? Ambien: 5mg daily ?? Ativan: 0.5mg PO daily PRN ( rare use does not need refill) ?? LABS: ?? Additional treatment recommendations: ?? Regular exercise and protect sleep ?? Follow-up:??January 2021. Safety Assessment: Denies SI/HI intent or plan though had difficult night last night with increaseddepression. Feels better. No hx of SA. No psychiatric hospitalizations. . Protective factors include: family and community support, [...] Visit (TeleHealth) Psychiatry [place] [address] Isaura García APRN [facility] [place] [address] documented as of this encounter Visit Diagnoses Diagnosis Bipolar I disorder with depression Bipolar I disorder, most recent episode (or current) depressed, unspecified documented in this encounter Care Teams Database Marketing Specialist Relationship Specialty Start Date End Date Virginie Gudino APRN [address] [place] [address] PCP - General Family Medicine 06/16/18 07/31/24 documented as of this encounter
--- OUTSIDE RECORDS SUMMARY | 2024-10-05 10:49 | XMS_ITS | Encounter Summary ---
Author Organization [facility] [place] [address] Care Team Providers Care Auto Parker Name Role Phone Virginie Gudino DANNA Primary Care Provider Encounter Details Date Type Department Care Team (Late st Contact Info) Description 01/03/2021 [place] [phone] Zhanna Mistry APRN [facility] [place] [address] Social History Tobacco Use Types Packs/Day Years [...] encounter Miscellaneous Notes * Telephone Encounter - Zhanna Mistry APRN - 01/03/2021 9:52 AM EST Opened in error documented in this encounter Plan of Treatment Upcoming Encounters Date Type Department Care Team (Late st Contact Info) Description 11/09/2024 11:30 AM EST TH Visit (TeleHealth) Psychiatry [place] [address] Isaura García APRN [facility] [place] [address] documented as of this encounter Visit Diagnoses Not on filedocumented in this encounter Care Teams Auto Parker Relationship Specialty Start Date End Date Virginie Gudino APRN [address] [place] [address] PCP - General Family Medicine 06/16/18 07/31/24 documented as of this encounter
--- OUTSIDE RECORDS SUMMARY | 2024-10-05 10:49 | XMS_ITS | Encounter Summary ---
Author Organization [facility] [place] [address] Care Team Providers Care Composite Mechanic Name Role Phone MariettaVirginie ventura DANNA Primary Care Provider [phone] Encounter Details Date Type Department Care Team (Latest Contact Info) Description 07/26/2018 11:25 AM EDT Laboratory Appointment Lab [address] [place] [phone] Diarrhea, unspecified type Social History Tobacco Use Types Packs/Day Years [...] Psychiatry [place] [phone] Isaura García APRN [facility] [address] documented as of this encounter Procedures Procedure Name Priority Date/Time Associated Diagnosis Comments HEMOGRAM Routine 07/26/2018 11:41 AM EDT Diarrhea, unspecified type DIFFERENTIAL, AUTOMATED Routine 07/26/2018 11:41 AM EDT Diarrhea, unspecified type IRON AND TIBC Routine 07/26/2018 11:41 AM EDT Diarrhea, unspecified type VITAMIN D, 25-HYDROXY Routine 07/26/2018 11:41 AM EDT Diarrhea, unspecified type CBC (WITH DIFF) Routine 07/26/2018 11:41 AM EDT Diarrhea, unspecified type TSH Routine 07/26/2018 11:41 AM EDT Diarrhea, unspecified type FERRITIN Routine 07/26/2018 11:41 AM EDT Diarrhea, unspecified type VITAMIN B12 Routine 07/26/2018 11:41 AM EDT Diarrhea, unspecified type COMPREHENSIVE METABOLIC PANEL Routine 07/26/2018 11:41 AM EDT Diarrhea, unspecified type documented in this encounter Results * Differential, Automated (07/26/2018 11:41 AM EDT) Neutrophil % 69.9 % [facility] Neutrophil Absolute 5.14 1.70 - 6.10 x10(3)/[facility] Lymph % 20.8 % [facility] Lymphocytes Abs 1.5 0.9 - 3.2 x10(3)/[facility] LABOR[facility] Monocyte % 7.8 % [facility] Monocyte Abs 0.6 0.3 - 0.9 x10(3)/[facility] Eos % 0.5 % [facility] Eosinophils Abs 0.0 0.0 - 0.4 x10(3)/[facility]OR[facility] Basophil % 0.7 % [facility] Baso Absolute 0.0 0.0 - 0.1 x10(3)/[facility] LABOR[facility]ORY Immature Gran % 0.30 % [facility] Comment: Immature granulocytes(IG's)percentage and absolute count will include metamyelocytes, myelocytes, and promyelocytes. Blood smears from CBCs yielding IG's will be scanned manually for concordance. If this scan disagrees with the automated IG or if promyelocytes are noted, a manual differential will be performed. Immature Gran Absolute 0.02 0.00 - 0.04 x10(3)/[facility] LABORATORY Blood specimen (specimen) 07/26/2018 11:41 AM EDT 07/26/2018 11:56 AM EDT Narrative Resulting Agency Comment Spec In Lab Mavisrafael Mary LouJanieLatisha MEDIA DIRECTOR HEMATOLOGY ORDERABLE S [facility] [place] [address] * Hemogram (07/26/2018 11:41 AM EDT) White Blood Cell 7.4 4.0 - 9.5 x10(3)/[facility] LABOR[facility] Red Blood Cell 4.81 4.00 - 5.21 x10(6)/[facility] Hemoglobin 14.4 11.7 - 15.5 gm/dL [facility] Hematocrit 44.3 35.7 - 45.8 % [facility] Mean Cell Volume 92.1 82.6 - 94.4 fL [facility] Mean Cell Hemoglobin 29.9 27.1 - 32.0 pg [facility] Mean Cell Hemoglobin Concentration 32.5 31.7 - 35.0 gm/dL [facility] Platelet 320 145 - 357 x10(3)/[facility] RDW Standard Deviation 45.1 37.0 - 46.0 fL [facility] RDW coefficient of variation 13.3 11.5 - 14.1 % [facility] Mean Platelet Volume 10.5 7.6 - 12.9 fL [facility] NRBC% auto 0.0 % [facility] NRBC Absolute 0.000 0.000 - 0.000 x10(3)/mcL [facility] Blood specimen (specimen) 07/26/2018 11:41 AM EDT 07/26/2018 11:56 AM EDT Narrative Resulting Agency Comment Spec In Lab Dorie Meeka MEDIA DIRECTOR HEMATOLOGY ORDERABLE S Performing Organization Address [facility]/ZIP Co de Phone Number [facility] [place] [address] * TSH (07/26/2018 11:41 AM EDT) Thyroid Stimulating Hormone 1.52 0.27 - 4.20 mlU/ML [facility] Blood specimen (specimen) 07/26/2018 11:41 AM EDT 07/26/2018 11:56 AM EDT Narrative Resulting Agency Comment Spec In Lab Dorie Blanco MEDIA DIRECTOR CHEMISTRY ORDERABLES Performing Organization Address [facility]/ZIP Co de Phone Number [facility] [place] [address] * Comprehensive metabolic panel (non-fasting) (07/26/2018 11:41 AM EDT) Glucose 86 65 - 199 mg/dL [facility] Comment:Diabetes: >=200 mg/d L plus symptoms Blood Urea Nitrogen 10 8 - 18 mg/dL [facility] Creatinine 0.81 0.70 - 1.20 mg/dL [facility] Sodium 143 135 - 145 mmol/L [facility] Potassium 4.0 3.5 - 5.0 mmol/L [facility] Comment: Please note: ??Patients with WBC >100,000 may have falsely elevated Potassium levels. ??For accurate Potassium quantification in these patients send serum separator tube (gold top) for subsequent determinations. ??Contact the Clinical Chemistry Laboratory if there are any questions. Chloride 107 98 - 107 mmol/L [facility] Carbon Dioxide 24 22 - 31 mmol/L [facility] Anion Gap 12 5 - 15 mmol/L [facility] Calcium 9.7 8.5 - 10.5 mg/dL [facility] Protein, Total 6.5 6.1 - 8.0 gm/dL [facility] Albumin 4.1 3.2 - 5.2 gm/dL [facility] Aspartate Aminotransferase 10 0 - 30 unit/L [facility] Alanine Aminotransferase 10 0 - 30 unit/L [facility] Alkaline Phosphatase 46 40 - 104 unit/L [facility] Bilirubin, Total 0.5 0.2 - 1.3 mg/dL [facility] Est Glomerular Filtration Rate 84 >=60 mL/min/1. 73 m?? [facility] Comment: The eGFR was calculated using the CKD-EPI equation. As with all creatinine based estimates of kidney function, eGFR values calculated with the CKD-EPI equation are not accurate in patients with acute kidney failure, extremes of body mass or the acutely ill. [email or web address]/[facility]GATEnkf eGFR 97 >=60 mL/min/1. 73 m?? [facility] Comment: The eGFR was calculated using the CKD-EPI equation. As with all creatinine based estimates of kidney function, eGFR values calculated with the CKD-EPI equation are not accurate in patients with acute kidney failure, extremes of body mass or the acutely ill. [email or web address]/DHnkf Blood specimen (specimen) 07/26/2018 11:41 AM EDT 07/26/2018 11:56 AM EDT Narrative Resulting Agency Comment Spec In Lab Dorie Blanco APRN CHEMISTRY ORDERABLES [facility] [place] [address] * (ABNORMAL) Vitamin D, 25-Hydroxy (07/26/2018 11:41 AM EDT) Vitamin D Total 25 OH 28(L) 30 - 100 ng/mL [facility] Comment: Deficient <10 ng/mL Insufficient 10 to 29 ng/mL Sufficient 30 to 100 ng/mL Potential Intoxication >100 ng/mL According to the US National Osteoporosis Foundation, Vitamin D concentrations >30 ng/mL are sufficient to protect bone health. ??The National Kidney Foundation has similarly stated that patients with Vitamin D concentrations <30ng/mL should be considered to be insufficient or deficient. http://Avaamo/nkf-guidelines http://Avaamo/nejm-VitD The IDS iSYS Vitamin D Immunoassay detects both 25-OH Vitamin D2 and 25-OH Vitamin D3, but only a total Vitamin D concentration is reported. Blood specimen (specimen) 07/26/2018 11:41 AM EDT 07/26/2018 1:57 PM EDT Narrative Resulting Agency Comment Spec In Lab Dorie Blanco APRN CHEMISTRY ORDERABLES Performing Organization Address [facility] Co de Phone Number [facility] [place] [address] * Vitamin B12 (07/26/2018 11:41 AM EDT) [facility] Vitamin B12 485 232 - 1,245 pg/mL [facility] Comment: Please note: Effective 10/28/2017, the reference interval and the lower limit of detection for Vitamin B12 have been updated due to a new reagent formulation. Blood specimen (specimen) 07/26/2018 11:41 AM EDT 07/26/2018 11:56 AM EDT Narrative Resulting Agency Comment Spec In Lab Tracia Francis MEDIA DIRECTOR CHEMISTRY ORDERABLES Performing Organization Address [facility] Co de Phone Number [facility] [place] [address] * Ferritin (07/26/2018 11:41 AM EDT) [facility] Ferritin 36 30 - 400 ng/mL [facility] Comment: Pediatric reference ranges not verified at [facility], interpret with caution. Reference ranges for females greater than 50 years of age approach values for men, i.e., 30-400 ng/mL. Blood specimen (specimen) 07/26/2018 11:41 AM EDT 07/26/2018 11:56 AM EDT Narrative Resulting Agency Comment Spec In Lab Dorie Blanco APRN CHEMISTRY ORDERABLES Performing Organization Address [facility] Co de Phone Number [facility] [place] [address] * Iron and TIBC (07/26/2018 11:41 AM EDT) Iron 89 30 - 150 mcg/dL [facility] TIBC 309 250 - 450 mcg/dL [facility] Iron Saturation 29 20 - 50 % [facility] Blood specimen (specimen) 07/26/2018 11:41 AM EDT 07/26/2018 11:56 AM EDT Narrative Resulting Agency Comment Spec In Lab Dorie Blanco APRN CHEMISTRY ORDERABLES Performing Organization Address [facility] Co de Phone Number [facility] [place] [address] documented in this encounter Visit Diagnoses Diagnosis Diarrhea, unspecified type documented in this encounter Care Teams Composite Mechanic Relationship Specialty Start Date End Date Virginie Gudino APRN [address] [place] [address] PCP - General Family Medicine 06/16/18 07/31/24 documented as of this encounter
--- OUTSIDE RECORDS SUMMARY | 2024-10-05 10:49 | XMS_ITS | Encounter Summary ---
Author Organization [facility] [place] [address] Care Team Providers Care Customer Success Associate Name Role Phone Virginie Gudino APRN Primary Care Provider [phone] Reason for Visit * Reason Comments Nutrition Counseling Encounter Details Date Type Department Care Team (Late st Contact Info) Description 07/26/2018 12:00 PM EDT Clinical Support [place] [phone] Sandra Alvarado RD [facility] [place] [address] Bloating; Diarrhea, unspecified type Social History Tobacco Use [...] Progress Notes * Sandra Alvarado RD - 07/26/2018 12:00 PM [...] every 6 hoursas needed for Indigestion. ??? zolpidem (AMBIEN) 5 mg Tablet Take 0.5-1 tablets by mouth nightly as needed for Sleep. 30 tablet 0 ??? lithium (LITHOBID) 300 mg Tablet [...] in a while sweet potatoes or butternut squash--shedoes most of the cooking Once per week will have beef, eats lots of fish including salmon (lean meats) eats very healthy diet (training for marathon)--will make his own 1-2 times per week will have gluten free bread Fluids: Drinks Water GI symptoms: Most days she is OK, once in a while she has diarrhea (1-2 times per week)--depends onthe week. She been OK this week. 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 [facility] Foods missed--yogurt We discussed various ways to [...] Visit (TeleHealth) Psychiatry [place] [address] Isaura García APRN [facility] [place] [address] documented as of this encounter Visit Diagnoses Diagnosis Bloating Flatulence, eructation, and gas pain Diarrhea, unspecified type documented in this encounter Care Teams Customer Success Associate Relationship Specialty Start Date End Date Virginie Gudino, DANNA [address] [place] [address] PCP - General Family Medicine 06/16/18 07/31/24 documented as of this encounter
--- OUTSIDE RECORDS SUMMARY | 2024-10-05 10:49 | XMS_ITS | Encounter Summary ---
Author Organization [facility] [place] [address] Care Team Providers Care Associate Professor Of Pathology Name Role Phone Virginie Gudino APRN Primary Care Provider [phone] Reason for Visit * Reason Onset Date Comments Medication Refill 07/08/2018 Encounter Details Date Type Department Care Team (Late st Contact Info) Description 07/08/2018 Refill Psychiatry [place] [phone] Ugo Pearl, RN Social History Tobacco Use [...] Visit (TeleHealth) Psychiatry [place] [phone] Isaura García APRN [facility] [place] [address] documented as of this encounter Visit Diagnoses Not on filedocumented in this encounter Care Teams Associate Professor Of Pathology Relationship Specialty Start Date End Date Virginie Gudino APRN [address] [place] [address] PCP - General Family Medicine 06/16/18 07/31/24 documented as of this encounter
--- OUTSIDE RECORDS SUMMARY | 2024-10-05 10:49 | XMS_ITS | Encounter Summary ---
Author Organization [facility] [place] [address] Care Team Providers Care Tank Storage Supervisor Name Role Phone Virginie Gudino APRN Primary Care Provider [phone] Reason for Visit * Reason Comments GI Problem * Consultation (Routine) - Specialty Diagnoses / Procedures Referred By Mohini lazo Referred To Contact Gastroenterology Diagnoses chronic diarrhea Virginie Gudino APRN [address] [place] [address] [facility] [address] [place] [address] Referral ID Status Reason Start Date Expiration Date V isits Requested Visits Authorized [id number] Consult, Test & Treat Connection [facility] 12/15/2017 12/15/2018 6 6 Encounter Details Date Type Department Care Team (Late st Contact Info) Description 07/26/2018 10:00 AM EDT Office [place] [phone] Dorie Blanco APRN [facility] [place] [address] Bloating; Diarrhea, unspecified type Social History Tobacco [...] documented in this encounter Progress Notes * Droie Blanco RN - 07/26/2018 10:00 AM EDT Section of Gastroenterology and Hepatology [address] [place] [address] .Shireen Silva : 1965 Patient is here for further evaluation of gastrointestinal symptoms at the request of Virginie Pickens. HPI: Pt has had diarrhea for one year. No changes at that time. She was on low card diet. Then began baking quite a bit and added sugar into [...] mouth every 6 hours as needed for Indigestion., Disp: , Rfl: ??? zolpidem (AMBIEN) 5 mg Tablet, Take 0.5-1 tablets by mouth nightly as needed for Sleep., Disp: 30 tablet, Rfl: 0 ??? lithium (LITHOBID) 300 mg Tablet Sustained Release, TAKE TWO TABLETS BY MOUTH EVERY MORNING ANDTHREE TABLETS EVERY EVENING, Disp: 150 tablet, Rfl: [...] mg by mouth daily. Reported on 03/23/2017 Indications:Seasonal Allergic Rhinitis, Disp: , Rfl: ??? pseudoephedrine (SUDAFED) 30 mg tablet, Take 30 mg by mouth every 4 hours as needed. Reported on 03/23/2017, Disp: , Rfl: ??? multivitamin (THERAGRAN) tablet, Take 1 tablet by mouth daily., Disp: , Rfl: Review of Systems - Negative except General: Cardiac: Resp: GI: see above : MS: Neuro: Skin: Psyche: Sleep: Endo: Impression: 1. Intermittent loose stools: sx responded to low fodmap diet. Schedule with packaging coordinator to slowly add foods back into diet and identify aggravating foods. ?sibo. Schedule hbt. Obtain colonoscopy report and bx from [facility]. Blood work today. 2. Gif in 6-8 weeks I spent a total of 54 minutes face to face with this patient; 40 minutes were spent counseling the patient in the medical problems described above. Sincerely, Dorie Blanco SKIN PILER Section of Gastroenterology and Hepatology documented in this encounter Plan of Treatment Upcoming Encounters Date Type Department Care Team (Late st Contact Info) Description 11/09/2024 11:30 AM EST TH Visit (TeleHealth) Psychiatry [place] [phone] Isaura García APRN [facility] [place] [address] documented as of this encounter Results * TSH (07/26/2018 11:41 AM EDT) Thyroid Stimulating Hormone 1.52 0.27 - 4.20 mlU/ML [facility] Blood specimen (specimen) 07/26/2018 11:41 AM EDT 07/26/2018 11:56 AM EDT Narrative Resulting Agency Comment Spec In Lab Dorie Blanco APRN CHEMISTRY ORDERABLES [facility] [place] [address] * Comprehensive metabolic panel (non-fasting) (07/26/2018 11:41 AM EDT) Glucose 86 65 - 199 mg/dL [facility] Comment:Diabetes: >=200 mg/d L plus symptoms Blood Urea Nitrogen 10 8 - 18 mg/dL [facility] Creatinine 0.81 0.70 - 1.20 [...] questions. Chloride 107 98 - 107 mmol/L [facility] Carbon Dioxide 24 22 - 31 mmol/L [facility] Anion Gap 12 5 - 15 mmol/L [facility] Calcium 9.7 8.5 - 10.5 mg/dL [facility] Protein, Total 6.5 6.1 - 8.0 gm/dL [facility] Albumin 4.1 3.2 - 5.2 gm/dL [facility] Aspartate Aminotransferase 10 0 - 30 unit/L [facility] Alanine Aminotransferase 10 0 - 30 unit/L [facility] Alkaline Phosphatase 46 40 - 104 unit/L [facility] Bilirubin, Total 0.5 0.2 - 1.3 mg/dL [facility] Est Glomerular Filtration Rate 84 >=60 mL/min/1. 73 m?? [facility] Comment: The eGFR was calculated using the CKD-EPI equation. As with all creatinine based estimates of kidney function, eGFR values calculated with the CKD-EPI equation are not accurate in patients with acute kidney failure, extremes of body mass or the acutely ill. [email or web address]/[facility] CITYnkf eGFR 97 >=60 mL/min/1. 73 m?? [facility] Comment: The eGFR was calculated using the CKD-EPI equation. As with all creatinine based estimates of kidney function, eGFR values calculated with the CKD-EPI equation are not accurate in patients with acute kidney failure, extremes of body mass or the acutely ill. [email or web address] Blood specimen (specimen) 07/26/2018 11:41 AM EDT 07/26/2018 11:56 AM EDT Narrative Resulting Agency Comment Spec In Lab Tracia Gaviotaa CASE MANAGERS CHEMISTRY ORDERABLES Performing Organization Address [facility] Co de Phone Number [facility] [place] [address] * (ABNORMAL) Vitamin D, 25-Hydroxy (07/26/2018 11:41 AM EDT) Vitamin D Total 25 OH 28(L) 30 - 100 ng/mL [facility] Comment: Deficient <10 ng/mL Insufficient 10 to 29 ng/mL Sufficient 30 to 100 ng/mL Potential Intoxication >100 ng/mL According to the US National Osteoporosis Foundation, Vitamin D concentrations >30 ng/mL are sufficient to protect bone health. ??The National Kidney Foundation has similarly stated that patients with Vitamin D concentrations <30ng/mL should be considered to be insufficient or deficient. http://Zenops/nkf-guidelines http://Zenops/nejm-VitD The IDS iSYS Vitamin D Immunoassay detects both 25-OH Vitamin D2 and 25-OH Vitamin D3, but only a total Vitamin D concentration is reported. Blood specimen (specimen) 07/26/2018 11:41 AM EDT 07/26/2018 1:57 PM EDT Narrative Resulting Agency Comment Spec In Lab Tracirafael Meeka CASE MANAGERS CHEMISTRY ORDERABLES Performing Organization Address [facility] Co de Phone Number [facility] [place] [address] * Vitamin B12 (07/26/2018 11:41 AM EDT) Vitamin B12 485 232 - 1,245 pg/mL [facility] Comment: Please note: Effective 10/28/2017, the reference interval and the lower limit of detection for Vitamin B12 have been updated due to a new reagent formulation. Blood specimen (specimen) 07/26/2018 11:41 AM EDT 07/26/2018 11:56 AM EDT Narrative Resulting Agency Comment Spec In Lab Tracia MeganLatisha CASE MANAGERS CHEMISTRY ORDERABLES Performing Organization Address [facility] Co de Phone Number [facility] [place] [address] * Ferritin (07/26/2018 11:41 AM EDT) [facility] Signature Ferritin 36 30 - 400 ng/mL [facility] Comment: Pediatric reference ranges not verified at [facility], interpret with caution. Reference ranges for females greater than 50 years of age approach values for men, i.e., 30-400 ng/mL. Blood specimen (specimen) 07/26/2018 11:41 AM EDT 07/26/2018 11:56 AM EDT Narrative Resulting Agency Comment Spec In Lab Tracia Gaviotaa CASE MANAGERS CHEMISTRY ORDERABLES Performing Organization Address [facility] Co de Phone Number [facility] [place] [address] * Iron and TIBC (07/26/2018 11:41 AM EDT) [facility] Iron 89 30 - 150 mcg/dL [facility] TIBC 309 250 - 450 mcg/dL [facility] Iron Saturation 29 20 - 50 % [facility] Blood specimen (specimen) 07/26/2018 11:41 AM EDT 07/26/2018 11:56 AM EDT Narrative Resulting Agency Comment Spec In Lab Tracia Gaviotaa CASE MANAGERS CHEMISTRY ORDERABLES Performing Organization Address [facility] Co de Phone Number [facility] [place] [address] documented in this encounter Visit Diagnoses Diagnosis Bloating Flatulence, eructation, and gas pain Diarrhea, unspecified type documented in this encounter Care Teams Tank Storage Supervisor Relationship Specialty Start Date End Date Virginie Gudino APRN [address] [place] [address] PCP - General Family Medicine 06/16/18 07/31/24 documented as of this encounter
--- OUTSIDE RECORDS SUMMARY | 2024-10-05 10:49 | XMS_ITS | Encounter Summary ---
Author Organization [facility] [place] [address] Care Team Providers Care Wait Staff Name Role Phone Virginie Gudino DANNA Primary Care Provider [phone] Reason for Visit * Reason Onset Date Comments Medication Refill 06/25/2020 Encounter Details Date Type Department Care Team (Late st Contact Info) Description 06/25/2020 Refill Psychiatry [place] [phone] Zhanna Mistry [facility] [place] [address] Social History Tobacco Use Types Packs/Day Years [...] Psychiatry [place] [address] Isaura García [facility] [place] [address] documented as of this encounter Visit Diagnoses Not on filedocumented in this encounter Care Teams Wait Staff Relationship Specialty Start Date End Date Virginie Gudino, FLIGHT CREW ORDNANCEMAN [address] [place] [address] PCP - General Family Medicine 06/16/18 07/31/24 documented as of this encounter
--- OUTSIDE RECORDS SUMMARY | 2024-10-05 10:49 | XMS_ITS | Encounter Summary ---
Author Organization [facility] [place] [address] Care Team Providers Care Digital Field Service Technician Name Role Phone Virginie Gudino DANNA Primary Care Provider Encounter Details Date Type Department Care Team (Latest Contact Info) Description 05/21/2020 8:30 AM EDT TH Visit (TeleHealth) Psychiatry [place] [address] [facility] [address] PSYCHIATRY [place] [address] Bipolar affective disorder, remission status unspecified; Anxiety [...] Progress Notes * Zhanna Mistry APRN - 05/21/2020 8:30 AM EDT ESTABLISHED ADULT PATIENT OFFICE VISIT NOTE Shireen Silva gave permission for and was seen for today's appointment with a Telephone Office Visit. During this visit they were located in [place]. Shireen Ricardo is aware that for any urgent matter they can call [phone]. Time Spent: 25 min Attendee(s): patient Identifying [...] He thinks she has sleep apnea. She wears a bracelet that reveals she doesn't sleep well. [...] THE EVENING ( complete level at [facility]) 150 tablet 5 ??? FLUoxetine [...] of trial): ??Celexa ?Venlafaxine ?Fluoxetine ?Bupropion ?Risperidone ?[place] (current at 600 mg and 900 mg [...] and normal rhythm ?? Language: fluent in lao ?? Mood: more anxious/depressed ?? Affect: mood-congruent [...] good ?? Labs: Psychiatry Labs: Date: 03/15/20 [place]: 1.00 Creatinine: .84 BUN: 19 ( H) [...] to 2-3 glasses of wine. Never combines alcohol with lorazepam/Ambien. Understands risks of BYPRODUCTS PUMP OPERATOR depression. We discussed that alcohol could be [...] and emergency contact info ?? Medications: ?? [place]: 600mg SR in AM and 900mg in PM ?? Prozac: 20mg PO daily ?? Ambien: 5mg daily ?? Ativan: 0.5mg PO daily PRN ( rare use does not need refill) ?? LABS: [place] level and BMP in 6 months ( [...] (TeleHealth) Psychiatry [place] [address] Isaura García APRN [facility] PSYCHIATRY [place] [address] documented as of this encounter Visit Diagnoses Diagnosis Bipolar affective disorder, remission status unspecified Anxiety Anxiety state, unspecified documented in this encounter Care Teams Digital Field Service Technician Relationship Specialty Start Date End Date Virginie Gudino APRN [address] [place] [place] [address] PCP - General Family Medicine 06/16/18 07/31/24 documented as of this encounter
--- OUTSIDE RECORDS SUMMARY | 2024-10-05 10:49 | XMS_ITS | Encounter Summary ---
Author Organization [facility] [place] [address] Care Team Providers Care Congressional Representative Name Role Phone Virginie Gudino DANNA Primary Care Provider [phone] Reason for Visit * Reason Onset Date Comments Medication Refill 03/09/2021 Encounter Details Date Type Department Care Team (Late st Contact Info) Description 03/09/2021 Refill Psychiatry [place] [phone] Zhanna Mistry [facility] [place] [address] Social History Tobacco Use Types Packs/Day Years [...] Visit (TeleHealth) Psychiatry [place] [phone] Isaura García [facility] [place] [address] documented as of this encounter Visit Diagnoses Not on filedocumented in this encounter Care Teams Congressional Representative Relationship Specialty Start Date End Date Virginie Gudino, EMAIL MARKETING ASSISTANT [address] [place] [address] PCP - General Family Medicine 06/16/18 07/31/24 documented as of this encounter
--- OUTSIDE RECORDS SUMMARY | 2024-10-05 10:49 | XMS_ITS | Encounter Summary ---
Author Organization [facility] [place] [address] Care Team Providers Care Materials Engineer Name Role Phone Virginie Gudino APRN Primary Care Provider [phone] Reason for Visit * Reason Onset Date Comments Medication Refill 09/11/2020 Encounter Details Date Type Department Care Team (Late st Contact Info) Description 09/11/2020 Refill Psychiatry [place] [phone] Ugo Pearl, RN Social History Tobacco Use [...] Visit (TeleHealth) Psychiatry [place] [phone] Isaura García APRN [facility] [place] [address] documented as of this encounter Visit Diagnoses Not on filedocumented in this encounter Care Teams Materials Engineer Relationship Specialty Start Date End Date Virginie Gudino APRN [address] [address] PCP - General Family Medicine 06/16/18 07/31/24 documented as of this encounter
--- OUTSIDE RECORDS SUMMARY | 2024-10-05 10:49 | XMS_ITS | Encounter Summary ---
Author Organization [facility] [place] [address] Care Team Providers Care Business Excellence Leader Name Role Phone Virginie Gudino APRN Primary Care Provider [phone] Reason for Visit * Reason Onset Date Comments Medication Refill 03/22/2021 Encounter Details Date Type Department Care Team (Late st Contact Info) Description 03/22/2021 Refill Psychiatry [place] [address] Lucrecia Hope Social History Tobacco Use Types [...] Visit (TeleHealth) Psychiatry [place] [address] Isaura García APRN [facility] [place] [address] documented as of this encounter Visit Diagnoses Not on filedocumented in this encounter Care Teams Business Excellence Leader Relationship Specialty Start Date End Date Virginie Gudino APRN [address] [place] [address] PCP - General Family Medicine 06/16/18 07/31/24 documented as of this encounter
--- OUTSIDE RECORDS SUMMARY | 2024-10-05 10:49 | XMS_ITS | Encounter Summary ---
Author Organization [facility] [place] [address] Care Team Providers Care Binding Dyer Name Role Phone Virgniie Gudino DANNA Primary Care Provider [phone] Reason for Visit * Reason Onset Date Comments Medication Refill 03/11/2021 Encounter Details Date Type Department Care Team (Late st Contact Info) Description 03/11/2021 Refill Psychiatry [place] [phone] Zhanna Mistry [facility] [address] [place] [address] Social History Tobacco Use Types Packs/Day Years [...] Visit (TeleHealth) Psychiatry [place] [phone] Isaura García [facility] [place] [address] documented as of this encounter Visit Diagnoses Not on filedocumented in this encounter Care Teams Binding Dyer Relationship Specialty Start Date End Date Virginie Gudino, STEAM ENGINEER [address] [place] [address] PCP - General Family Medicine 06/16/18 07/31/24 documented as of this encounter
--- OUTSIDE RECORDS SUMMARY | 2024-10-05 10:49 | XMS_ITS | Encounter Summary ---
Author Organization [facility] [place] [address] Care Team Providers Care Seismic Prospecting Observer Helper Name Role Phone Virginie Gudino APRN Primary Care Provider [phone] Reason for Visit * Reason Onset Date Comments Medication Refill 03/12/2020 Encounter Details Date Type Department Care Team (Late st Contact Info) Description 03/12/2020 Refill Psychiatry [place] [phone] Ugo Pearl, RN Social History Tobacco Use [...] Visit (TeleHealth) Psychiatry [place] [phone] Isaura García APRN [facility] [place] [address] documented as of this encounter Visit Diagnoses Not on filedocumented in this encounter Care Teams Seismic Prospecting Observer Helper Relationship Specialty Start Date End Date Virginie Gudino APRN [address] [place] [address] PCP - General Family Medicine 06/16/18 07/31/24 documented as of this encounter
--- OUTSIDE RECORDS SUMMARY | 2024-10-05 10:50 | XMS_ITS | Encounter Summary ---
Author Organization [facility] [place] [address] Care Team Providers Care Medical Observer Name Role Phone Marlin Miramontes DANNA Primary Care Provider [phone] Encounter Details Date Type Department Care Team (Late st Contact Info) Description 08/20/2015 10:10 AM EDT Office Visit Psychiatry and [place] [phone] Austin Wolfe MD [facility] [place] [address] Bipolar I disorder, most recent episode (or current) depressed, in partial or unspecified remission Social History Tobacco Use Types Packs/Day Years Used Date Smoking Tobacco: Never Alcohol Use Standard Drinks/Week Comments [...] documented in this encounter Progress Notes * Bj, Zhanna R, MD - 08/25/2015 2:33 PM EDT PSYCHIATRY [...] patient continues to experience excessive depression, and sheis certain that the only thing that will help is additional fluoxetine. We, in turn, counter with concerns about antidepressant induced dinaa. She had previously accepted a compromise of starting fluoxetine under the condition that she accept and increase in lithium. Her level at present is 0.73. We inquired about early warning signs of diana. None are present currently. She is aware that her interest level will increase dramatically and that she will spend money excessively. She doesn't think she has anyone in her life who can provide her with feedback about this. She has taken the step of giving up credit cards, however. We will increase fluoxetine to 20 mg and monitor carefully. Additional comments: none * Austin Wolfe MD - 08/20/2015 10:47 AM EDT ESTABLISHED ADULT PATIENT OFFICE VISIT NOTE Time Spent: 30 min Attendee(s): pt This patient was seen with Dr. Zhanna Lorenzo. See her note for confirmatory and/or revisionary documentation. HISTORY Chief Complaint: Shireen Silva is a 50 y.o. Female presents today for medication management/followup HPI: () Patient reports that nothing has [...] her mood, but that this is consistent with her last experience with Prozac, which didn't start to help until around 30 mg. She continues to experience significant amotivation, low interest, and low mood. She feels that hersleep has remained stable, around 6 hrs/night with Ambien. She reports having a panic episode in the middle of the night about a month ago, but did not need to use lorazepam, and states she has not been using it. She denies any symptoms of diana, including euphoria, irritability, grandiosity, distra ctibility, or impulsivity. She is unable to say [...] 2-3 tablets by mouth 2 times daily. Take 2 tablets in the morning, and 3 tablets at night 150 tablet 3 ??? zolpidem (AMBIEN) 10 mg Tablet Take 1 tablet by mouth nightly as needed for Sleep. 30 tablet 3 ??? buPROPion (WELLBUTRIN XL) 300 mg Tablet Sustained Release 24 hr Take 1 tablet by mouth every morning. 30 tablet 5 ??? UNABLE TO FIND Med Name: [employer] [place] Body protein shakes. Per website, each contains [...] hours as needed (panic attacks). 7 tablet 3 No current facility-administered medications for [...] , and several dogs. Not working. States she would like to get another pet. EXAM [05/08/14 [...] at once). She does note that she has no credit cards at this time. We will [...] Visit (TeleHealth) Psychiatry [place] [address] Isaura García APRN [facility] [place] [address] documented as of this encounter Results * Basic Metabolic Panel (non-fasting) (09/24/2015 9:27 AM EDT) Pathologist [facility] Glucose 79 65 - 199 mg/dL CERNER MILLENNIUM Comment:Diabetes: >=200 mg/d L plus symptoms Blood Urea Nitrogen 15 8 - 18 mg/dL CERNER MILLENNIUM Creatinine 0.84 0.70 - 1.20 mg/dL CERNER MILLENNIUM Comment: Please note that the pediatric reference intervals supplied above were not validated at [facility]. Results from pediatric patients should be interpreted in conjunction to the patient's age, height and muscle mass. Sodium 142 135 - 145 mmol/L CERNER MILLENNIUM Potassium 4.1 3.5 - 5.0 mmol/L CERNER MILLENNIUM Comment: Please note: ??Patients with WBC >100,000 may have falsely elevated Potassium levels. ??For accurate Potassium quantification in these patients send serum separator tube (gold top) for subsequent determinations. ??Contact the Clinical Chemistry Laboratory if there are any questions. Chloride 104 98 - 107 mmol/L CERNER MILLENNIUM Carbon Dioxide 26 22 - 31 mmol/L CERNER MILLENNIUM Anion Gap 12 5 - 15 mmol/L CERNER MILLENNIUM Calcium 9.0 8.5 - 10.5 mg/dL CERNER MILLENNIUM Est Glomerular Filtration Rate >60 >=60 CERNER MILLENNIUM Comment: This estimated GFR (eGFR) value was calculated using the MDRD equation which has been validated on patients between the ages of 18 and 70. The MDRD should not be used to assess kidney function in patients < 18 years of age or in patients with extremes of body mass, or in patients with acute kidney failure. This value should be multiplied by 1.2 for patients. For further information please copy and paste the following links into your internet browser. [email or web address]/DHnkdep [email or web address] Blood specimen (specimen) 09/24/2015 9:27 AM EDT 09/24/2015 9:36 AM EDT Narrative Resulting Agency Comment Spec In Lab Zhanna Lorenzo MD CHEMISTRY ORDERABLES Performing Organization Address [facility] de Phone Number HORACIO JORGE * [place] level (09/24/2015 9:27 AM EDT) [place] 0.62 mmol/L HORACIO JORGE Comment: Therapeutic level for bipolar depression: 0.60-1.20 mmol/L Action Level: ?? Acute toxicity: ?>4.00 mmol/L ?? Chronic toxicity: ??>1.50 mmol/L Values greater than or equal to the action level necessitate clinical intervention. ??Values less than this level may necessitate intervention based on clinical condition of the patient. Ref: ??[employer]i? s Toxicologic Emergencies 6th ed 1997; p. 967 Blood specimen (specimen) 09/24/2015 9:27 AM EDT 09/24/2015 9:36 AM EDT Narrative Resulting Agency Comment Spec In Lab Zhanna Lorenzo MD CHEMISTRY ORDERABLES Performing Organization Address [facility] de Phone Number HORACIO JORGE documented in this encounter Visit Diagnoses Diagnosis Bipolar I disorder, most recent episode (or current) depressed, in partial or unspecified remission documented in this encounter Care Teams Medical Observer Relationship Specialty Start Date End Date Marlin Miramontes APRN PCP - General 06/14/13 01/25/17 documented as of this encounter
--- OUTSIDE RECORDS SUMMARY | 2024-10-05 10:50 | XMS_ITS | Encounter Summary ---
Author Organization [facility] [place] [address] Care Team Providers Care Web Offset Press Feeder Name Role Phone Marlin Miramontes DANNA Primary Care Provider [phone] Encounter Details Date Type Department Care Team (Late st Contact Info) Description 09/24/2015 10:00 AM EDT Office Visit Psychiatry [place] [phone] Austin Wolfe MD [facility] [place] [address] Bipolar disorder, in partial remission, most recent episode depressed Social History Tobacco Use Types Packs/Day Years [...] in this encounter Progress Notes * Zhanna Lorenzo MD - 09/29/2015 6:11 PM [...] not sufficient to protect her from switch into diana in the context of antidepressant medication, and we addressed this with her, including expla nations and references to past excessive activation on fluoxetine. We also explored her reasons forincreasing alcohol intake and explained how that would worsen her depression. She did not want further increases in lithium, but did ask about getting off bupropion. Given her symptoms, we deferred ataper. Despite our efforts to explain our medication strategy, I'm not sure she understands/agrees with our reluctance to increase the antidepressants. She did agree to consider psychotherapy. Additional comments: none * Austin Wolfe MD - 09/24/2015 10:10 AM EDT ESTABLISHED ADULT PATIENT OFFICE VISIT NOTE Time Spent: 30 min Attendee(s): pt This patient was seen with Dr. Zhanna Lorenzo. See her note for confirmatory and/or revisionary documentation. HISTORY Chief Complaint: Shireen Silva is a 50 y.o. Female presents today for medication management/followup HPI: () Patient reports that things have [...] although she has tried to be more activated after our discussion last month. She feels low energy remains a prominent component of her presentation, and continues to have chronic passive SI without plan or intent. She states she is still sleeping ok with 10 mg of zolpidem nightly. Of note, she reports that she has been drinking more EtOH recently (2-3 glasses of wine/night). Shestates this is in response to feeling more stressed/overwhelmed, and it helps her feel more calm. She does not feel that this behavior is negatively impacting her at all. Quality: overwhelmed Severity: mod-severe Duration: chronic Timing: daily Context: recent manic-like episode in the spring, subsequent depression that has persisted since Modifying factors: no effect from up-titration of lithium. Would like to increase Prozac due to past positive effects (euphoric, seemed to contribute to recent [...] as needed (panic attacks). 7 tablet 3 ??? UNABLE TO FIND Med Name: [employer] [place] Body protein shakes. Per website, each contains [...] asserts that she has been compliant with thelithium for the past week. We discussed that with a sub- therapeutic level we would not be comfortable raising the dose of Prozac, particularly since it was at 30 mg that she began to have activation last spring. She is resistant to a further increase in the lithium dosage for now, so we discussed making no medication changes for now, but focusing on eliminating the EtOH (as this is likely to havea positive effect on her mood stability). She is in agreement with that plan. Also encouraged patient to pursue finding a therapist in her region, since therapy work could be beneficial for her depressive symptoms without the risk of conversion to diana anti-depressant treatment carries. PLAN: Continue current medications without adjustment Patient [...] Visit (TeleHealth) Psychiatry [place] [address] Isaura García APRN [facility] [place] [address] documented as of this encounter Visit Diagnoses Diagnosis Bipolar disorder, in partial remission, most recent episode depressed Bipolar I disorder, most recent episode (or current) depressed, in partial or unspecified remission documented in this encounter Care Teams Web Offset Press Feeder Relationship Specialty Start Date End Date Marlin Miramontes APRN PCP - General 06/14/13 01/25/17 documented as of this encounter
--- OUTSIDE RECORDS SUMMARY | 2024-10-05 10:50 | XMS_ITS | Encounter Summary ---
Author Organization [facility] [place] [address] Care Team Providers Care Layer Out Plate Glass Name Role Phone None Primary Care Provider Unavailabl e Encounter Details Date Type Department Care Team (Late st Contact Info) Description 06/04/2018 External Results Psychiatry [place] [phone] Provider, Scanning Social History Tobacco Use Types [...] Visit (TeleHealth) Psychiatry [place] [phone] Isaura García APRN [facility] [place] [address] documented as of this encounter Procedures Procedure Name Priority Date/Time Associated Diagnosis Comments LAB SCAN Routine 05/20/2018 documented in this encounter Results * Scan Doc: Lab (05/20/2018) Scanning Provider MEDIA MGR SCAN EXT O RDR/RSLT documented in this encounter Visit Diagnoses Not on filedocumented in this encounter Care Teams Layer Out Plate Glass Relationship Specialty Start Date End Date None None PCP - General 05/11/17 06/15/18 documented as of this encounter
--- OUTSIDE RECORDS SUMMARY | 2024-10-05 10:50 | XMS_ITS | Encounter Summary ---
Author Organization [facility] [place] [address] Care Team Providers Care Vp Integrity Name Role Phone Marlin Miramontes APRN Primary Care Provider [phone] Reason for Visit * Reason Comments Medication Refill Encounter Details Date Type Department Care Team (Late st Contact Info) Description 08/05/2016 Refill Psychiatry [place] [address] [facility] [place] [address] Social History Tobacco Use Types Packs/Day Years [...] Visit (TeleHealth) Psychiatry [place] [phone]aura García APRN [facility] [place] [address] documented as of this encounter Visit Diagnoses Not on filedocumented in this encounter Care Teams Vp Integrity Relationship Specialty Start Date End Date Marlin Miramontes, DANNA PCP - General 06/14/13 01/25/17 documented as of this encounter
--- OUTSIDE RECORDS SUMMARY | 2024-10-05 10:50 | XMS_ITS | Encounter Summary ---
Author Organization [facility] [place] [address] Care Team Providers Care Grading Machine Operator Name Role Phone None Primary Care Provider Unavailabl e Encounter Details Date Type Department Care Team (Late st Contact Info) Description 05/11/2017 3:00 PM EDT Office Visit Psychiatry and Behavioral Health at [facility] [place] [address] Austin Wolfe MD [facility] PSYCHIATRY [place] [id number] Bipolar 1 disorder, depressed, partial remission Social History Tobacco Use Types Packs/Day [...] as of this encounter Progress Notes * Austin Wolfe MD - 05/11/2017 3:00 PM EDT ESTABLISHED ADULT PATIENT OFFICE VISIT NOTE Time Spent: 30 min Attendee(s): pt This patient was seen with Dr. Demetrius Deng See her note for confirmatory and/or revisionary documentation. HISTORY Chief Complaint: Shireen Silva is a 52 y.o. Female presents today for medication management/followup HPI: () Patient reports that overall she is happy with the lurasidone, but does notice that she has a sense of restlessness occasionally which is bothersome. She feels that her depression has eased quite a bit since her last visit. Notes she initially hada burst of energy/motivation, which has since evened out. Now feels she is definately less depressed but still finds motivation and apathy to be a problem. She reports that it can cause her to be somewhat tired, so takes it at bedtime. She endorses taking it with food as instructed. Continues to feel occasional suicidal thoughts, without plan/intent, but feels overall she feels out of the fog of not wanting to do things. Overall sleeping well, feels she is getting enough sleep(around 7-8 hrs). Doesn't report ongoing fatigue during the day. Denies any problems with appetite. She notes the restlessness is there, but not extreme. She describes this as a a feeling of innerrestlessness. She notes that she occasionally gets relieve from physical movement. Finds that being distracted and focused actually helps with that sensation (e.g watching an interesting movie the restlessness doesn't bother her as much). Most recent PHQ9: PHQ9 05/04/2017 Little interest or pleasure Several days Down, [...] TABLETS EVERY EVENING 150 tablet 3 ??? lurasidone (LATUDA) 40 mg Tablet Take 1 tablet by mouth daily. 30 tablet 1 ??? LORazepam (ATIVAN) 0.5 mg Tablet Take 1 tablet by mouth every 6 hours as needed (panic attacks). (Patient not taking: Reported on 03/23/2017) 21 tablet [...] for this visit. Pertinent Medication Side Effects: Possible akithisia (pt feels this is manageable) Review of Systems: (12/01/09) Constitutional: denies fatigue Eyes: ENT: Cardiovascular: Respiratory: GI: : Musculoskeletal: Integumentary: Neurological: Psychiatric: See HPI above Endocrine: Hematologic/Lymphatic: Allergic/Immunological: No Known Allergies PFSH: () Past Medical/Psychiatric History: no interval change Family Psychiatric and Medical History: no interval change Social History: Reports things are going ok at home, son is out of school and at home. She finds this helpful. EXAM [05/08/14 bullets (incl VS)] Constitutional System [...] Homicidality / Violent Thoughts: none reported/elicited Suicidality: intermittent passive SI w/o plan/intent (baseline) Hallucinations: none reported/elicited Delusions: none reported/elicited Obsessions: none reported/elicited ? Judgment and Insight: fair ? Mood & Affect: less depressed/affect is mildly anxious ? Orientation: x3 ? Attention/Concentration: alert/attentive and without need for redirection ? Memory: grossly intact to recent/remote events ? Language: fluent ? Fund of Knowledge: average Psychotherapeutic Interventions and Response: n/a MEDICAL DECISION MAKING ASSESSMENT: Shireen Silva is a 52 y.o. Female with bipolar disorder, current episode depressed, inpartial remission. Her symptoms are moderately improved. Patient has had a positive initial response to trial of lurasidone, with lessening of depressive symptoms (including SI, though she continues to have intermittent passive SI as at baseline). She continues to endorse depressive symptoms, however, so we discussed the utility of additional dose titration of the lurasidone. Unfortunately, she may be experiencing akithisia from the lurasidone, although she does not feel itis overly bothersome at this time. We reviewed this side effect, and potential management options (including propranolol or benztropine). Patient is agreeable to dose titration to 60 mg, and will notify clinic of any problems. PLAN: Increase lurasidone to 60 mg nightly Continue other medications without adjustment Pt to follow up with new resident in June Patient Instruction/Education provided: Patient provided verbal instructions regarding treatment plan. Patient understands the plan? Yes * Demetrius Deng MD - 05/11/2017 3:00 PM EDT PSYCHIATRY TEACHING PHYSICIAN INVOLVEMENT Location: [facility], [address] Attending Physician: Demetrius Deng MD Resident [...] 52 y.o. female with h/o bipolar disorder. Latuda has been helpful with mood - still some low mood and passive SI at times, but much improved. No active SI, plan or intent. Would be open to an increase in Latuda. Described some sx perhaps concerning for akathesia - will continue to monitor. We discussed that options do exist. DEMETRIUS DENG MD documented in this encounter Plan of Treatment Upcoming Encounters Date Type Department Care Team (Late st Contact Info) Description 11/09/2024 11:30 AM EST TH Visit (TeleHealth) Psychiatry [place] [address] Isaura García APRN [facility] [place] [address] documented as of this encounter Visit Diagnoses Diagnosis Bipolar 1 disorder, depressed, partial remission Bipolar I disorder, most recent episode (or current) depressed, in partial or unspecified remission documented in this encounter Care Teams Grading Machine Operator Relationship Specialty Start Date End Date None None PCP - General 05/11/17 06/15/18 documented as of this encounter
--- OUTSIDE RECORDS SUMMARY | 2024-10-05 10:50 | XMS_ITS | Encounter Summary ---
Author Organization [facility] [place] [address] Care Team Providers Care Production Quality Manager Name Role Phone Marlin Miramontes APRN Primary Care Provider [phone] Reason for Visit * Reason Onset Date Comments Medication Refill 10/06/2016 Encounter Details Date Type Department Care Team (Late st Contact Info) Description 10/06/2016 Refill Psychiatry and Behavior[place] [phone] Dinesh Shields MD [facility] [place] [address] Social History Tobacco Use Types Packs/Day Years [...] encounter Miscellaneous Notes * Telephone Encounter - Dinesh Shields MD - 10/06/2016 11:30 AM ESTFrom: Shireen Silva To: Dinesh Shields MD Sent: 10/06/2016 9:33 AM EST Subject: Medication Renewal Request Original authorizing provider: MD Shireen SMITH would like a refill of the following medications: FLUoxetine (PROZAC) 40 mg Capsule [DINESH SHIELDS MD] Preferred pharmacy: [id number] - [address] Comment: documented in this encounter Plan of Treatment Upcoming Encounters Date Type Department Care Team (Late st Contact Info) Description 11/09/2024 11:30 AM EST TH Visit (TeleHealth) Psychiatry and Behavioral [place] [address] Isaura García APRN [facility] [place] [address] documented as of this encounter Visit Diagnoses Not on filedocumented in this encounter Care Teams Production Quality Manager Relationship Specialty Start Date End Date Marlin Miramontes APRN PCP - General 06/14/13 01/25/17 documented as of this encounter
--- OUTSIDE RECORDS SUMMARY | 2024-10-05 10:50 | XMS_ITS | Encounter Summary ---
Author Organization [facility] [place] [address] Care Team Providers Care Flat Bed Operator Name Role Phone MariettaVirginie ventura DANNA Primary Care Provider [phone] Reason for Visit * Reason Onset Date Comments Medication Refill 08/28/2017 Encounter Details Date Type Department Care Team (Late st Contact Info) Description 08/28/2017 Refill Psychiatry [place] [phone] Laura Villalobos MD [facility] [place] [address] Social History Tobacco Use Types Packs/Day Years [...] Visit (TeleHealth) Psychiatry [place] [phone] Isaura García APRN [facility] [place] [address] documented as of this encounter Visit Diagnoses Not on filedocumented in this encounter Care Teams Flat Bed Operator Relationship Specialty Start Date End Date Virginie Gudino, ELECTRON GUN ASSEMBLER [address] [place] [address] PCP - General Family Medicine 06/16/18 07/31/24 documented as of this encounter
--- OUTSIDE RECORDS SUMMARY | 2024-10-05 10:50 | XMS_ITS | Encounter Summary ---
Author Organization [facility] [place] [address] Care Team Providers Care Parts Consultant Name Role Phone Marlin Miramontes DANNA Primary Care Provider [phone] Encounter Details Date Type Department Care Team (Late st Contact Info) Description 06/09/2016 2:30 PM EDT Office Visit Psychiatry [place] [phone] Austin Wolfe MD [facility] [place] [address] Bipolar disorder, current episode depressed, severe, without psychotic features Social History Tobacco Use Types Packs/Day Years [...] documented in this encounter Progress Notes * Demetrius Deng MD - 06/09/2016 3:14 PM EDT PSYCHIATRY TEACHING PHYSICIAN INVOLVEMENT Location: Adult Psychiatry Medication Clinic, [address] Attending Physician: Demetrius Deng MD Resident [...] 51 y.o. female with h/o bipolar disorder. H/omanic episodes where she would have excessive spending, no other dangerous behavior. Most problematic has been depression for past several years. Most recent lithium level therapeutic. Would like to increase Prozac to 40mg, which helped in past. Given concern for precipitating manic episode is opento having small amount of rescue medicine like zyprexa on hand for signs/symptoms diana (and she will tel her to look out for those). Would also call Dr Wolfe if those symptoms emerged (would go to ER if unsafe). No SI with plan or intent - would get self to safe place if felt unsafe. Lives with family. . DEMETRIUS DENG MD * Austin Wolfe MD - 06/09/2016 2:51 PM EDT ESTABLISHED ADULT PATIENT OFFICE VISIT NOTE Time Spent: 30 min Attendee(s): pt This patient was seen with Dr. Demetrius Deng See her note for confirmatory and/or revisionary documentation. HISTORY Chief Complaint: Shireen Silva is a 51 y.o. Female presents today for medication management/followup HPI: () Patient reports that things have been not great since her last appointment. She expresses that she has been feeling very stressed recently, in particular because she and her are refinancingtheir home, and he is going to be going to 5 weeks of job training in preparation for a job transition, which she feels means she has to deal with most of the home stress by herself. She has continued to feel depressed, apathetic/anergic, fatigued, and suicidal (chronic, without plan/intent). She was able to get labs a month and a half ago, which showed lithium level of 0.75 and normal renal/thyroid function. She is still interested in increasing her fluoxetine to 40 mg We reviewed her previous experience with 40 mg fluoxetine, and she continues to feel that there wasnot really any problem, although she does acknowledge that in the past she has had significant difficulty with out of control spending. She does not feel this is a significant risk currently as she and her have limited the means she has to spend money. She denies any problems with sleep (6-7 hrs/night) and does not feel she has [...] needed for Sleep. 30 tablet 0 ??? FLUoxetine (PROZAC) 20 mg Tablet Take 1 tablet by mouth daily. Take with 10 mg capsule for total dose of 30 mg 30 tablet 1 ??? [...] needed (panic attacks). 7 tablet 3 ??? cetirizine (ZYRTEC) 10 mg tablet Take 10 mg by mouth daily. Indications: Seasonal Allergic Rhinitis ??? multivitamin (THERAGRAN) tablet Take 1 tablet by mouth daily. ??? UNABLE TO FIND Med Name: [email or web address] protein shakes. Per website, each [...] 1 tablet by mouth daily as needed. No current facility-administered medications for this visit. Pertinent Medication Side Effects: None reported Review of Systems: (12/01/09) Constitutional: endorses appetite increase Eyes: ENT: Cardiovascular: Respiratory: GI: no N/V : Musculoskeletal: Integumentary: Neurological: Psychiatric: See HPI above Endocrine: Hematologic/Lymphatic: Allergic/Immunological: See reviewed allergies PFSH: () Past Medical/Psychiatric History: Last lithium level 0.75 . She has been able to find a therapist in her region, and has an intake with him next [...] (5' 6), weight 73.4 kg (161 lb 12.8 oz). Musculoskeletal System ? Muscle Strength/Tone (note [...] Female with bipolar disorder, current episode depressed. Her symptoms are unchanged, and no acute safety concerns were identified during this assessment. She continues to express significant symptoms of depression, and would still like to increase her fluoxetine. We reviewed what happened last time, noting that she is currently therapeutic on her lithium. Di scussed the R/B/SE, and encouraged her to make [...] remains resistant to the idea of an atypicalantipsychotic or lamotrigine to address her depression, but [...] family to assist her in catching any symptoms of mood destabilization early Continue lithium without adjustment Encouraged patient to engage with new therapist RTC in 4 weeks (or sooner if needed). Patient has instructions to contact this bond underwriter if needed Patient Instruction/Education provided: Patient provided written and verbal instructions regarding treatment plan. Patient understands the plan? Yes documented in this encounter Plan of Treatment Upcoming Encounters Date Type Department Care Team (Late st Contact Info) Description 11/09/2024 11:30 AM EST TH Visit (TeleHealth) Psychiatry [place] [address] Isaura García APRN [facility] [place] [address] documented as of this encounter Visit Diagnoses Diagnosis Bipolar disorder, current episode depressed, severe, without psychotic features Bipolar I disorder, most recent episode (or current) depressed, severe, without mention of psychotic behavior documented in this encounter Care Teams Parts Consultant Relationship Specialty Start Date End Date Marlin Miramontes APRN PCP - General 06/14/13 01/25/17 documented as of this encounter
--- OUTSIDE RECORDS SUMMARY | 2024-10-05 10:50 | XMS_ITS | Encounter Summary ---
Author [facility] [place] [address] Care Team Providers Care Rafter Cutting Machine Operator Name Role Phone Marlin Miramontes APRN Primary Care Provider [phone] Reason for Visit * Reason Onset Date Comments Medication Refill 05/07/2016 Encounter Details Date Type Department Care Team (Late st Contact Info) Description 05/07/2016 Refill [place] [phone] Jermaine Kasper, [facility] [place] [address] Social History Tobacco Use Types Packs/Day Years [...] Visit (TeleHealth) Psychiatry [place] [phone] Isaura García FROG FARMER [facility] [place] [address] documented as of this encounter Visit Diagnoses Not on filedocumented in this encounter Care Teams Rafter Cutting Machine Operator Relationship Specialty Start Date End Date Marlin Miramontes, FROG FARMER PCP - General 06/14/13 01/25/17 documented as of this encounter
--- OUTSIDE RECORDS SUMMARY | 2024-10-05 10:50 | XMS_ITS | Encounter Summary ---
Author Organization [facility] [place] [address] Care Team Providers Care Video Control Engineer Name Role Phone Virginie Gudino APRN Primary Care Provider [phone] Reason for Visit * Reason Onset Date Comments Medication Refill 06/08/2018 Encounter Details Date Type Department Care Team (Late st Contact Info) Description 06/08/2018 Refill Psychiatry [place] [phone] Ugo Pearl, RN Social History Tobacco Use [...] Visit (TeleHealth) Psychiatry [place] [phone] Isaura García APRN [facility] [place] [address] documented as of this encounter Visit Diagnoses Not on filedocumented in this encounter Care Teams Video Control Engineer Relationship Specialty Start Date End Date Virginie Gudino APRN [address] [address] PCP - General Family Medicine 06/16/18 07/31/24 documented as of this encounter
--- OUTSIDE RECORDS SUMMARY | 2024-10-05 10:50 | XMS_ITS | Encounter Summary ---
Author Organization [facility] Yg [place] [id number] Care Team Providers Care Sequins Stringer Name Role Phone Unknown Primary Care Provider Unavailabl e Reason for Visit * Reason Onset Date Comments Medication Refill 02/27/2017 Encounter Details Date Type Department Care Team (Late st Contact Info) Description 02/27/2017 Refill Psychiatry [place] [address] Dinesh Shields MD [facility] [place] [address] Social History Tobacco Use Types Packs/Day Years [...] Telephone Encounter - Dinesh Shields MD - 02/27/2017 10:52 AM EDTFrom: Shireen Silva To: Dinesh Shields MD Sent: 02/27/2017 9:10 AM EDT Subject: Medication Renewal Request Original authorizing provider: MD Shireen SMITH would like a refill of the following medications: zolpidem (AMBIEN) 5 mg Tablet [DINESH SHIELDS MD] Preferred pharmacy: [id number] - [address] Comment: documented in this encounter Plan of Treatment Upcoming Encounters Date Type Department Care Team (Late st Contact Info) Description 11/09/2024 11:30 AM EST TH Visit (TeleHealth) Psychiatry [place] [address] Isaura García APRN [facility] [place] [address] documented as of this encounter Visit Diagnoses Not on filedocumented in this encounter Care Teams Sequins Stringer Relationship Specialty Start Date End Date Unknown None PCP - General 01/26/17 05/10/17 documented as of this encounter
--- OUTSIDE RECORDS SUMMARY | 2024-10-05 10:50 | XMS_ITS | Encounter Summary ---
Author Organization [facility] [place] [address] Care Team Providers Care Shaker Tender Name Role Phone Unknown Primary Care Provider Unavailabl e Reason for Visit * Reason Comments Medication Refill Encounter Details Date Type Department Care Team (Late st Contact Info) Description 04/19/2017 Refill Psychiatry [place] [phone] Austin Wolfe MD [facility] [place] [address] Social History Tobacco Use Types Packs/Day Years [...] Visit (TeleHealth) Psychiatry [place] [phone] Isaura García APRN [facility] [address] [place] [address] documented as of this encounter Visit Diagnoses Not on filedocumented in this encounter Care Teams Shaker Tender Relationship Specialty Start Date End Date Unknown None PCP - General 01/26/17 05/10/17 documented as of this encounter
--- OUTSIDE RECORDS SUMMARY | 2024-10-05 10:50 | XMS_ITS | Encounter Summary ---
Author Organization [facility] [place] [facility] [place] [address] Care Team Providers Care Construction Field Engineer Name Role Phone Marlin Miramontes APRN Primary Care Provider [phone] Reason for Visit * Reason Onset Date Comments Medication Refill 04/18/2016 Encounter Details Date Type Department Care Team (Late st Contact Info) Description 04/18/2016 Refill Psychiatry [place] [phone] Dinesh Shields MD [facility] [place] [address] Social History Tobacco Use Types Packs/Day Years [...] Telephone Encounter - Dinesh Shields MD - 04/18/2016 2:00 PM EDTFrom: Shireen Silva To: Dinesh Shields MD Sent: 04/18/2016 9:59 AM EDT Subject: Medication Renewal Request Original authorizing provider: MD Shireen SMITH would like a refill of the following medications: FLUoxetine (PROZAC) 20 mg Tablet [DINESH SHIELDS MD] Preferred pharmacy: [id number] - [address] Comment: documented in this encounter Plan of Treatment Upcoming Encounters Date Type Department Care Team (Late st Contact Info) Description 11/09/2024 11:30 AM EST TH Visit (TeleHealth) Psychiatry [place] [address] Isaura García APRN [facility] [place] [address] documented as of this encounter Visit Diagnoses Not on filedocumented in this encounter Care Teams Construction Field Engineer Relationship Specialty Start Date End Date Marlin Miramontes APRN PCP - General 06/14/13 01/25/17 documented as of this encounter
--- OUTSIDE RECORDS SUMMARY | 2024-10-05 10:50 | XMS_ITS | Encounter Summary ---
Author Organization [facility] [place] [address] Care Team Providers Care Curb Hop Name Role Phone MiramontesMarlin alan DANNA Primary Care Provider +1- [phone] Encounter Details Date Type Department Care Team (Late st Contact Info) Description 10/29/2015 10:00 AM EST Office Visit Psychiatry [place] [phone] Austin Wolfe MD [facility] [place] [address] Encounter for long-term (current) drug use; Bipolar 1 disorder, depressed, partial remission Social [...] Progress Notes * Zhanna Lorenzo MD - 10/30/2015 2:11 PM [...] continues to experience depressed mood in the context of a bipolar illness. Her persistent request has been for an increase in fluoxetine, a medication that has induced manic symptoms. Notably, she has been successful in limiting her alcohol intake to one drink at [facility] since we last saw her, an achievement that we celebrated with her. Following a review of her early warning symptoms of diana and a discussion about getting select family members involved in watching for them, we agreed to increase fluoxetine to 30 mg daily, contingent on checking another lithium level. Target is to get above 0.7 to achieve adequate protection against a mood shift. She also reported decreasing the dose of zolpidem to 5 mg without any adverse impact on her sleep, a step we had discussed and supported. Additional comments: none. * Austin Wolfe MD - 10/29/2015 10:51 AM EST ESTABLISHED [...] (did have a glass of wine on ). Otherwise she states she has not had any in the past 3 [...] disorder, current episode depressed. Her symptoms are unchanged. She states she is not comfortable with the idea of therapy right now, but continued to encourage her to think about this as an option to help with depressed mood. She has hadsuccess by her report in reducing her EtOH intake, which is likely to have positive effects on moodstability. She also has gone through a significant withdrawal from zolpidem, but feels that she is unable to go without it completely. We reviewed the option to take 2.5 mg (rather than 5mg), and to skip days (e.g using it for 2 out of every 3 days). She is agreeable to try these options. We reviewed her history of manic symptoms with use of fluoxetine (starting at 30 mg). She agrees tokeep early warning signs in her mind and [...] Visit (TeleHealth) Psychiatry [place] [address] Isaura García APRN [facility] [place] [address] documented as of this encounter Procedures Procedure Name Priority Date/Time Associated Diagnosis Comments LITHIUM LEVEL Routine 10/29/2015 11:27 AM EST Encounter for long-term (current) drug use documented in this encounter Results * [place] level (10/29/2015 11:27 AM EST) [place] 0.58 mmol/L [facility] Comment: Therapeutic level for bipolar depression: 0.60-1.20 mmol/L Action Level: ?? Acute toxicity: ?>4.00 mmol/L ?? Chronic toxicity: ??>1.50 mmol/L Values greater than or equal to the action level necessitate clinical intervention. ??Values less than this level may necessitate intervention based on clinical condition of the patient. Ref: ??Goldfrank? s Toxicologic Emergencies 6th ed 1997; p. 967 Blood specimen (specimen) 10/29/2015 11:27 AM EST 10/29/2015 11:42 AM EST Narrative Resulting Agency Comment Spec In Lab Zhanna Lorenzo MD CHEMISTRY ORDERABLES [facility] documented in this encounter Visit Diagnoses Diagnosis Encounter for long-term (current) drug use Encounter for long-term (current) use of other medications Bipolar 1 disorder, depressed, partial remission Bipolar I disorder, most recent episode (or current) depressed, in partial or unspecified remission documented in this encounter Care Teams Curb Hop Relationship Specialty Start Date End Date Marlin Miramontes APRN PCP - General 06/14/13 01/25/17 documented as of this encounter
--- OUTSIDE RECORDS SUMMARY | 2024-10-05 10:50 | XMS_ITS | Encounter Summary ---
Author Organization [facility] [place] [address] Care Team Providers Care Claims Manager Name Role Phone Marlin Miramontes APRN Primary Care Provider +1- [phone] Reason for Visit * Reason Onset Date Comments Medication Refill 02/20/2016 Encounter Details Date Type Department Care Team (Late st Contact Info) Description 02/20/2016 Refill Psychiatry [place] [phone] Dinesh Shields MD [facility] [place] [address] Social History Tobacco Use Types Packs/Day Years [...] Dinesh Shields MD - 02/20/2016 12:08 PM EDTFrom: Shireen Silva To: Dinesh Shields MD Sent: 02/20/2016 10:54 AM EDT Subject: Medication Renewal Request Original authorizing provider: MD Shireen SMIHT would like a refill of the following medications: zolpidem (AMBIEN) 5 mg Tablet [DINESH SHIELDS MD] FLUoxetine (PROZAC) 20 mg Tablet [DINESH SHIELDS MD] Preferred pharmacy: [id number] - [facility] [place] - [address] [facility] Comment: documented in this encounter Plan of Treatment Upcoming Encounters Date Type Department Care Team (Late st Contact Info) Description 11/09/2024 11:30 AM EST TH Visit (TeleHealth) Psychiatry [place] [address] Isaura Garíca APRN [facility] [place] [address] documented as of this encounter Visit Diagnoses Not on filedocumented in this encounter Care Teams Claims Manager Relationship Specialty Start Date End Date Marlin Miramontes APRN PCP - General 06/14/13 01/25/17 documented as of this encounter
--- OUTSIDE RECORDS SUMMARY | 2024-10-05 10:50 | XMS_ITS | Encounter Summary ---
Author Organization [facility] [place] [address] Care Team Providers Care Thin Film Technician Name Role Phone None Primary Care Provider Unavailabl e Encounter Details Date Type Department Care Team (Late st Contact Info) Description 10/19/2017 10:30 AM EST Office Visit Psychiatry and [place] [address] Laura Villalobos MD [facility] [address] [place] [id number] Bipolar affective disorder, remission status unspecified Social [...] Progress Notes * Laura Villalobos C - 10/19/2017 10:30 AM EST ESTABLISHED ADULT PATIENT OFFICE VISIT NOTE Time Spent: 60 min Attendee(s): Ms. Silva This patient was seen with Dr. Demetrius Deng See her note for confirmatory and/or revisionary documentation. HISTORY Chief Complaint: Shireen Silva is a 52 y.o. Female presents today for medication management/followup HPI: She reports she is doing pretty good per patient. She is working on her therapy. She feels she doesn't want to change medications at this time. She is going to therapy every other week. She reportsit is going ok. Ambien she is using [...] emergency services if needed. She already made pecan and apple pie for the Thanksgiving. 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 She is thinking about increasing her volunteer time. She reports she sees people she [...] for Sleep. 30 tablet 2 ??? lithium (LITHOBID) 300 mg Tablet Sustained Release TAKE TWO TABLETS BY MOUTH EVERY MORNING AND THREE TABLETS EVERY EVENING 150 tablet 3 ??? pseudoephedrine (SUDAFED) 30 mg tablet Take 30 mg by mouth every 4 hours as needed. Reported on03/23/2017 ??? LORazepam (ATIVAN) 0.5 mg Tablet Take 1 tablet by mouth every 6 hours as needed (panic attacks). (Patient not taking: Reported on 10/19/2017) 5 tablet [...] medication trials: ?Citalopram ?Venlafaxine ?Fluoxetine ?Bupropion ?Risperidone ?[place] (current at 600 mg and 900 mg daily) ?Oxcarbazepine ?Clonazepam ?Lorazepam ?Zolpidem (current at 5 mg nightly PRN insomnia) ?Eszopiclone Lurasidone Family Psychiatric and Medical History: no interval change Social History: Son is entering senior year which she reports is exciting. 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 EXAM [05/08/14 bullets (incl VS)] Constitutional System ? Vital Signs: Blood pressure 116/71, pulse 53, height 167.6 cm (5' 6), weight 83.1 kg (183 lb 3.2oz). Musculoskeletal System ? Muscle Strength/Tone (note atrophy, [...] management/follow up. Overall she seems to be doing [...] plan? Yes * Demetrius Deng MD - 10/19/2017 10:30 AM EST PSYCHIATRY TEACHING PHYSICIAN INVOLVEMENT Location: Adult Psychiatry Medication Clinic, [facility] Attending Physician: Demetrius Deng MD Resident [...] Visit (TeleHealth) Psychiatry [place] [phone] Isaura García APRN [facility] [place] [address] documented as of this encounter Visit Diagnoses Diagnosis Bipolar affective disorder, remission status unspecified documented in this encounter Care Teams Thin Film Technician Relationship Specialty Start Date End Date None None PCP - General 05/11/17 06/15/18 documented as of this encounter
--- OUTSIDE RECORDS SUMMARY | 2024-10-05 10:50 | XMS_ITS | Encounter Summary ---
Author Organization [facility] [place] [address] Care Team Providers Care Leadership Development Instructor Name Role Phone None Primary Care Provider Unavailabl e Encounter Details Date Type Department Care Team (Latest Contact Info) Description 08/24/2017 9:55 AM EDT Laboratory Appointment Lab [address] [place] [phone] Bipolar disorder, current episode depressed, severe, without [...] Visit (TeleHealth) Psychiatry [place] [phone] Isaura García APRN [facility] [place] [address] documented as of this encounter Procedures Procedure Name Priority Date/Time Associated Diagnosis Comments LITHIUM LEVEL Routine 08/24/2017 9:53 AM EDT Bipolar disorder, current episode depressed, severe, without psychotic features BASIC METABOLIC PANEL Routine 08/24/2017 9:53 AM EDT Bipolar disorder, current episode depressed, severe, without psychotic features documented in this encounter Results * Basic Metabolic Panel (non-fasting) (08/24/2017 9:53 AM EDT) Glucose 91 65 - 199 mg/dL [facility] Comment:Diabetes: >=200 mg/d L plus symptoms Blood Urea Nitrogen 15 8 - 18 mg/dL [facility] Creatinine 0.77 0.70 - 1.20 mg/dL [facility] Comment: Please note that the pediatric reference intervals supplied above were not validated at [facility]. Results from pediatric patients should be interpreted in conjunction to the patient's age, height and muscle mass. Sodium 144 135 - 145 mmol/L [facility] Potassium 3.6 3.5 - 5.0 mmol/L [facility] Comment: Please note: ??Patients with WBC >100,000 may have falsely elevated Potassium levels. ??For accurate Potassium quantification in these patients send serum separator tube (gold top) for subsequent determinations. ??Contact the Clinical Chemistry Laboratory if there are any questions. Chloride 107 98 - 107 mmol/L [facility] Carbon Dioxide 25 22 - 31 mmol/L [facility] Anion Gap 12 5 - 15 mmol/L [facility] Calcium 9.7 8.5 - 10.5 mg/dL [facility] Est Glomerular Filtration Rate >60 >=60 [facility] Comment: This estimated GFR (eGFR) [...] the following links into your internet browser. [email or web address] Blood specimen (specimen) 08/24/2017 9:53 AM EDT 08/24/2017 9:57 AM EDT Narrative Resulting Agency Comment Spec In Lab Aileen Stephenson MD CHEMISTRY ORDERABLES Performing Organization Address [facility] Co de Phone Number [facility] [place] [address] * [place] level (08/24/2017 9:53 AM EDT) [place] 0.75 mmol/L [facility] Comment: Therapeutic level for bipolar depression: 0.60-1.20 mmol/L Action Level: ?? Acute toxicity: ?>4.00 mmol/L ?? Chronic toxicity: ??>1.50 mmol/L Values greater than or equal to the action level necessitate clinical intervention. ??Values less than this level may necessitate intervention based on clinical condition of the patient. Ref: ??Goldfrank? s Toxicologic Emergencies 6th ed 1997; p. 967 Blood specimen (specimen) 08/24/2017 9:53 AM EDT 08/24/2017 9:57 AM EDT Narrative Resulting Agency Comment Spec In Lab Aileen Stephenson MD CHEMISTRY ORDERABLES Performing Organization Address [facility] Co de Phone Number [facility] [place] [address] documented in this encounter Visit Diagnoses Diagnosis Bipolar disorder, current episode depressed, severe, without psychotic features Bipolar I disorder, most recent episode (or current) depressed, severe, without mention of psychotic behavior documented in this encounter Care Teams Leadership Development Instructor Relationship Specialty Start Date End Date None None PCP - General 05/11/17 06/15/18 documented as of this encounter
--- OUTSIDE RECORDS SUMMARY | 2024-10-05 10:50 | XMS_ITS | Encounter Summary ---
Author Organization [facility] [place] [address] Care Team Providers Care Broadcast Systems Engineer Name Role Phone Marlin Miramontes APRN Primary Care Provider [phone]- [phone] Reason for Visit * Reason Onset Date Comments Medication Refill 11/18/2015 Encounter Details Date Type Department Care Team (Late st Contact Info) Description 11/19/2015 Refill Psychiatry [place] [phone] Noble Rodrigues MD [facility] [place] [address] Bipolar I disorder, most recent episode (or current) depressed, in partial or unspecified remission; Bipolar affective disorder, most recent episode unspecified type, remission status unspecified Social History Tobacco Use [...] encounter Miscellaneous Notes * Telephone Encounter - Noble Rodrigues - 11/19/2015 7:43 AM ESTFrom: Shireen Silva To: Dinesh Shields MD Sent: 11/18/2015 11:15 AM EST Subject: Medication Renewal Request Original authorizing provider: MD Shireen SMITH would like a refill of the following medications: lithium (LITHOBID) 300 mg Tablet Sustained Release [DINESH SHIELDS MD] Preferred pharmacy: [id number] Comment: I also need the Wellbutrin refilled. Bupropion HCL XL 300mg. One tablet every morning. I am not outof these meds and have several days left of them (enough to get through the holiday). I noticed they are getting low and I have no refills on them. Thank you! documented in this encounter Plan of Treatment Upcoming Encounters Date Type Department Care Team (Late st Contact Info) Description 11/09/2024 11:30 AM EST TH Visit (TeleHealth) Psychiatry [place] [address] Isaura García APRN [facility] [place] [address] documented as of this encounter Visit Diagnoses Diagnosis Bipolar I disorder, most recent episode (or current) depressed, in partial or unspecified remission Bipolar affective disorder, most recent episode unspecified type, remission status unspecified documented in this encounter Care Teams Broadcast Systems Engineer Relationship Specialty Start Date End Date Marlin Miramontes APRN PCP - General 06/14/13 01/25/17 documented as of this encounter
--- OUTSIDE RECORDS SUMMARY | 2024-10-05 10:50 | XMS_ITS | Encounter Summary ---
Author Organization [facility] [place] [address] Care Team Providers Care Cylinder Die Machine Helper Name Role Phone Virginie Gudino APRN Primary Care Provider [phone] Reason for Visit * Reason Comments Medication Refill Encounter Details Date Type Department Care Team (Late st Contact Info) Description 05/19/2017 Refill Psychiatry [place] [phone] Austin Wolfe MD [facility] [place] [address] Social History Tobacco Use Types Packs/Day Years [...] Visit (TeleHealth) Psychiatry [place] [address] Isaura García APRN [facility] [place] [address] documented as of this encounter Visit Diagnoses Not on filedocumented in this encounter Care Teams Cylinder Die Machine Helper Relationship Specialty Start Date End Date Virginie Gudino PHOTOGRAVURE PRESS OPERATOR [address] [place] [address] PCP - General Family Medicine 06/16/18 07/31/24 documented as of this encounter
--- OUTSIDE RECORDS SUMMARY | 2024-10-05 10:50 | XMS_ITS | Encounter Summary ---
Author Organization [facility] [place] [address] Care Team Providers Care Commodity Director Name Role Phone Miramontes, Marlin Chamorro APRN Primary Care Provider [phone]- [phone] Encounter Details Date Type Department Care Team (Late st Contact Info) Description 07/25/2015 External Results Psychiatry and [place] [phone] Provider, Scanning Social History Tobacco Use Types [...] Visit (TeleHealth) Psychiatry and [place] [phone] Isaura García APRN [facility] [place] [address] documented as of this encounter Procedures Procedure Name Priority Date/Time Associated Diagnosis Comments LAB SCAN Routine 07/20/2015 documented in this encounter Results * Scan Doc: Lab (07/20/2015) Scanning Provider MEDIA MGR SCAN EXT O RDR/RSLT documented in this encounter Visit Diagnoses Not on filedocumented in this encounter Care Teams Commodity Director Relationship Specialty Start Date End Date Marlin Miramontes APRN PCP - General 06/14/13 01/25/17 documented as of this encounter
--- OUTSIDE RECORDS SUMMARY | 2024-10-05 10:50 | XMS_ITS | Encounter Summary ---
Author Organization [facility] [place] [address] Care Team Providers Care Mash Filter Operator Name Role Phone Marlin Miramontes APRN Primary Care Provider [phone]- [phone] Reason for Visit * Reason Comments Medication Refill Encounter Details Date Type Department Care Team (Late st Contact Info) Description 12/16/2016 Refill Psychiatry [place] [phone] Fidel Perez MD [facility] [place] [address] Social History Tobacco Use Types Packs/Day Years [...] Visit (TeleHealth) Psychiatry [place] [address] Isaura García APRN [facility] [place] [address] documented as of this encounter Visit Diagnoses Not on filedocumented in this encounter Care Teams Mash Filter Operator Relationship Specialty Start Date End Date Marlin Miramontes, DANNA PCP - General 06/14/13 01/25/17 documented as of this encounter
--- OUTSIDE RECORDS SUMMARY | 2024-10-05 10:50 | XMS_ITS | Encounter Summary ---
Author Organization [facility] [place] [address] Care Team Providers Care Money Order Clerk Name Role Phone None Primary Care Provider Unavailabl e Reason for Visit * Reason Onset Date Comments Medication Refill 06/25/2017 Encounter Details Date Type Department Care Team (Late st Contact Info) Description 06/25/2017 Refill Psychiatry [place] [phone] Laura Vlilalobos MD [facility] [place] [address] Social History Tobacco Use Types Packs/Day Years [...] Visit (TeleHealth) Psychiatry [place] [address] Isaura García APRN [facility] [place] [address] documented as of this encounter Visit Diagnoses Not on filedocumented in this encounter Care Teams Money Order Clerk Relationship Specialty Start Date End Date None None PCP - General 05/11/17 06/15/18 documented as of this encounter
--- OUTSIDE RECORDS SUMMARY | 2024-10-05 10:50 | XMS_ITS | Encounter Summary ---
Author Organization [facility] [place] [address] Care Team Providers Care Digital Developer Name Role Phone Miramontes, Marlin Ashtyn CLAY Primary Care Provider [phone]- [phone] Encounter Details Date Type Department Care Team (Late st Contact Info) Description 05/12/2016 External Results Psychiatry [place] [phone] Provider, Scanning Social History Tobacco Use Types [...] Visit (TeleHealth) Psychiatry [place] [phone] Isaura García APRN [facility] [place] [address] documented as of this encounter Procedures Procedure Name Priority Date/Time Associated Diagnosis Comments LAB SCAN Routine 04/16/2016 documented in this encounter Results * Scan Doc: Lab (04/16/2016) Scanning Provider MEDIA MGR SCAN EXT O RDR/RSLT documented in this encounter Visit Diagnoses Not on filedocumented in this encounter Care Teams Digital Developer Relationship Specialty Start Date End Date Marlin Miramontes APRN PCP - General 06/14/13 01/25/17 documented as of this encounter
--- OUTSIDE RECORDS SUMMARY | 2024-10-05 10:50 | XMS_ITS | Encounter Summary ---
Author Organization [facility] [place] [address] Care Team Providers Care Stamp Classifier Name Role Phone Marlin Miramontes APRN Primary Care Provider [phone]- [phone] Reason for Visit * Reason Onset Date Comments Medication Refill 11/20/2016 Encounter Details Date Type Department Care Team (Late st Contact Info) Description 11/20/2016 Refill Psychiatry [place] [phone] Dinesh Shields MD [facility] [place] [address] Social History Tobacco Use Types Packs/Day Years [...] encounter Miscellaneous Notes * Telephone Encounter - Misa Marvin - 11/20/2016 1:29 PM EST Script was mailed to Debbie Medrano [place], [place] for the Ambien on 11/20/16 * Telephone Encounter - Dinesh Shields MD - 11/20/2016 1:02 PM ESTFrom: Shireen Silva To: Dinesh Shields MD Sent: 11/20/2016 12:42 PM EST Subject: Medication Renewal Request Original authorizing provider: DINESH SHIELDS MD Shireen Silva would like a refill of the following medications: zolpidem (AMBIEN) 5 mg Tablet [DINESH SHIELDS MD] Preferred pharmacy: [id number] Comment: documented in this encounter Plan of Treatment Upcoming Encounters Date Type Department Care Team (Late st Contact Info) Description 11/09/2024 11:30 AM EST TH Visit (TeleHealth) Psychiatry [place] [address] Isaura García APRN [facility] [place] [address] documented as of this encounter Visit Diagnoses Not on filedocumented in this encounter Care Teams Stamp Classifier Relationship Specialty Start Date End Date Marlin Miramontes APRN PCP - General 06/14/13 01/25/17 documented as of this encounter
--- OUTSIDE RECORDS SUMMARY | 2024-10-05 10:50 | XMS_ITS | Encounter Summary ---
Author Organization [facility] [place] [address] Care Team Providers Care Diagnostic Tech Name Role Phone Virginie Gudino APRN Primary Care Provider [phone] Reason for Visit * Reason Onset Date Comments Medication Refill 07/05/2018 Encounter Details Date Type Department Care Team (Late st Contact Info) Description 07/05/2018 Refill Psychiatry [place] [phone] Ugo Pearl, RN Social History Tobacco Use [...] Visit (TeleHealth) Psychiatry [place] [phone] Isaura García APRN [facility] [place] [address] documented as of this encounter Visit Diagnoses Not on filedocumented in this encounter Care Teams Diagnostic Tech Relationship Specialty Start Date End Date Virginie Gudino APRN [address] [place] [address] PCP - General Family Medicine 06/16/18 07/31/24 documented as of this encounter
--- OUTSIDE RECORDS SUMMARY | 2024-10-05 10:50 | XMS_ITS | Encounter Summary ---
Author Organization [facility] [place] [facility] [place] [address] Care Team Providers Care Senior Product Development Scientist Name Role Phone None Primary Care Provider Unavailabl e Reason for Visit * Reason Onset Date Comments Medication Refill 05/27/2017 Encounter Details Date Type Department Care Team (Late st Contact Info) Description 05/27/2017 Refill Psychiatry [place] [phone] Laura Peralta MD [facility] [place] [address] Social History Tobacco Use Types Packs/Day Years [...] Visit (TeleHealth) Psychiatry [place] [phone] Isaura García APRN [facility] [place] [address] documented as of this encounter Visit Diagnoses Not on filedocumented in this encounter Care Teams Senior Product Development Scientist Relationship Specialty Start Date End Date None None PCP - General 05/11/17 06/15/18 documented as of this encounter
--- OUTSIDE RECORDS SUMMARY | 2024-10-05 10:50 | XMS_ITS | Encounter Summary ---
Author Organization [facility] [place] [address] Care Team Providers Care Car Mechanic Helper Name Role Phone None Primary Care Provider Unavailabl e Encounter Details Date Type Department Care Team (Late st Contact Info) Description 08/24/2017 10:30 AM EDT Office Visit Psychiatry [place] [phone] Laura Villalobos MD [facility] [address] [place] [id number] Bipolar affective disorder, remission status unspecified Social [...] Progress Notes * Demetrius Deng MD - 08/24/2017 10:30 AM EDT PSYCHIATRY TEACHING PHYSICIAN INVOLVEMENT Location: Adult Psychiatry Medication Clinic, [facility] 5D Attending Physician: Demetrius Deng MD Resident [...] 04/17/2015 WBC 6.35 04/06/2014 DEMETRIUS DENG MD * Laura Villalobos - 08/24/2017 10:30 AM EDT ESTABLISHED ADULT PATIENT OFFICE VISIT NOTE Time Spent: 60 min Attendee(s): Ms. Silva This patient was seen with Dr. Demetrius Deng See her note for confirmatory and/or revisionary documentation. HISTORY Chief Complaint: Shireen Silva is a 52 y.o. Female presents today for medication management/followup HPI: Ms. Silva reports she is doing ok - she reports she got frustrated with taking the latuda. 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 She reports she has intermittent [...] every 6 hours as needed (panic attacks). 5 tablet 0 ??? zolpidem (AMBIEN) 5 mg Tablet Take 0.5-1 tablets by mouth nightly as needed for Sleep. 30 tablet 1 ??? lithium (LITHOBID) 300 [...] medication trials: ?Citalopram ?Venlafaxine ?Fluoxetine ?Bupropion ?Risperidone ?[place] (current at 600 mg and 900 mg daily) ?Oxcarbazepine ?Clonazepam ?Lorazepam ?Zolpidem (current at 5 mg nightly PRN insomnia) ?Eszopiclone Lurasidone Family Psychiatric and Medical History: no interval change Social History: Son is entering senior year which she reports is exciting. 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 EXAM [05/08/14 bullets (incl VS)] Constitutional [...] is calm, cooperative, cheerful, bright and smiling attimes ? Orientation: intact ? Attention/Concentration: alert/attentive and [...] well. She reports since the last appointment she stopped taking latuda - it perhaps caused a [...] better off not being here) - she reports this was particularly when she stopped latuda. She [...] Visit (TeleHealth) Psychiatry [place] [address] Isaura García APRN [facility] [place] [address] documented as of this encounter Visit Diagnoses Diagnosis Bipolar affective disorder, remission status unspecified documented in this encounter Care Teams Car Mechanic Helper Relationship Specialty Start Date End Date None None PCP - General 05/11/17 06/15/18 documented as of this encounter
--- OUTSIDE RECORDS SUMMARY | 2024-10-05 10:50 | XMS_ITS | Encounter Summary ---
Author Organization [facility] [place] [address] Care Team Providers Care Atm Technician Name Role Phone Marlin Miramontes APRN Primary Care Provider [phone] Reason for Visit * Reason Onset Date Comments Medication Refill 03/31/2016 Encounter Details Date Type Department Care Team (Late st Contact Info) Description 03/31/2016 Refill Psychiatry [place] [phone] Dinesh Shields MD [facility] [place] [address] Social History Tobacco Use Types Packs/Day Years [...] Dinesh Shields MD - 03/31/2016 12:53 PM EDTFrom: Shireen Silva To: Dinesh Shields MD Sent: 03/31/2016 11:28 AM EDT Subject: Medication Renewal Request Original authorizing provider: MD Shireen SMITH would like a refill of the following medications: zolpidem (AMBIEN) 5 mg Tablet [DINESH SHIELDS MD] Preferred pharmacy: [facility] [id number] - [address] Comment: documented in this encounter Plan of Treatment Upcoming Encounters Date Type Department Care Team (Late st Contact Info) Description 11/09/2024 11:30 AM EST TH Visit (TeleHealth) Psychiatry [place] [address] Isaura García APRN [facility] [place] [address] documented as of this encounter Visit Diagnoses Not on filedocumented in this encounter Care Teams Atm Technician Relationship Specialty Start Date End Date Marlin Miramontes APRN PCP - General 06/14/13 01/25/17 documented as of this encounter
--- OUTSIDE RECORDS SUMMARY | 2024-10-05 10:50 | XMS_ITS | Encounter Summary ---
Author Organization [facility] [place] [address] Care Team Providers Care Proctologist Name Role Phone None Primary Care Provider Unavailabl e Encounter Details Date Type Department Care Team (Late st Contact Info) Description 03/22/2018 9:30 AM EDT Office Visit Psychiatry and Behavioral Health at [facility] [place] [address] Laura Villalobos MD [facility] [address] [place] [id number] Bipolar affective disorder, remission status unspecified Social [...] as of this encounter Progress Notes * Demetrius Deng MD - 03/22/2018 9:30 AM EDT PSYCHIATRY TEACHING PHYSICIAN INVOLVEMENT Location: Adult Psychiatry Medication Clinic, [facility] Attending Physician: Demetrius Deng MD Resident [...] 04/06/2014 DEMETRIUS DENG MD * Laura Villalobos Mayuri - 03/22/2018 9:30 AM EDT ESTABLISHED ADULT PATIENT OFFICE VISIT NOTE Time Spent: 30 min Attendee(s): Ms. Silva This patient was seen with Dr. Demetrius Deng See her note for confirmatory and/or revisionary documentation. HISTORY Chief Complaint: Shireen Silva is a 52 y.o. Female presents today for medication management/followup HPI: She reports she has other health [...] - approximately every other night. She sometimes splitsthem in half. No ativan or zyprexa recently in the past few months. She is sleeping 6 hours per night which is her usual. She reports she has had some depressed feelings per patient here and there but she reports it hasn't been per patient overwhelming or persistent. - this is what she said last appointment and reports it is still the same. Per her report she continues to have thoughts at times such as per patient nobody would miss me orcare and she sometimes thinks about things she [...] well. This week doing it twice this week.Likes baseball. Alcohol: drinks alcohol 10 out of [...] she takes it approximately every other night, most night she splits them in half. 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 Overall she seems to be continuing to do well. She is continuing to volunteer. There are no acute safety concerns - [...] tab, very rarely maybe once a month usesa whole tablet. - lithium level 0.75 on 08/24/17 [...] Visit (TeleHealth) Psychiatry [place] [address] Isaura García, NURSE SPECIAL [facility] [place] [address] documented as of this encounter Visit Diagnoses Diagnosis Bipolar affective disorder, remission status unspecified documented in this encounter Care Teams Proctologist Relationship Specialty Start Date End Date None None PCP - General 05/11/17 06/15/18 documented as of this encounter
--- OUTSIDE RECORDS SUMMARY | 2024-10-05 10:50 | XMS_ITS | Encounter Summary ---
Author Organization [facility] [place] [address] Care Team Providers Care Tree Faller Name Role Phone Virginie Gudino APRN Primary Care Provider Reason for Visit * Reason Onset Date Comments Medication Refill 06/03/2018 Encounter Details Date Type Department Care Team (Late st Contact Info) Description 06/03/2018 Refill Psychiatry and Behavioral [place] [phone] Ugo Pearl, RN Social History Tobacco Use [...] Visit (TeleHealth) Psychiatry and Behavior[place] [phone] Isaura García APRN [facility] [place] [address] documented as of this encounter Visit Diagnoses Not on filedocumented in this encounter Care Teams Tree Faller Relationship Specialty Start Date End Date Virginie Gudino APRN [address] [place] [address] PCP - General Family Medicine 06/16/18 07/31/24 documented as of this encounter
--- OUTSIDE RECORDS SUMMARY | 2024-10-05 10:50 | XMS_ITS | Encounter Summary ---
Author Organization [facility] [place] [address] Care Team Providers Care Flight Kitchen Manager Name Role Phone None Primary Care Provider Unavailabl e Reason for Visit * Reason Onset Date Comments Medication Refill 01/04/2018 Encounter Details Date Type Department Care Team (Late st Contact Info) Description 01/04/2018 Refill Psychiatry [place] [phone] Laura Villalobos MD [facility] [address] Social History Tobacco Use Types Packs/Day Years [...] and [place] [address] Isaura García APRN [facility] [place] [address] documented as of this encounter Visit Diagnoses Not on filedocumented in this encounter Care Teams Flight Kitchen Manager Relationship Specialty Start Date End Date None None PCP - General 05/11/17 06/15/18 documented as of this encounter
--- OUTSIDE RECORDS SUMMARY | 2024-10-05 10:50 | XMS_ITS | Encounter Summary ---
Author Organization [facility] [place] [address] Care Team Providers Care Paper Twister Tender Name Role Phone None Primary Care Provider Unavailabl e Encounter Details Date Type Department Care Team (Late st Contact Info) Description 01/21/2018 Orders Only Psychiatry [place] [address] Laura Villalobos MD [facility] [place] [address] Social History Tobacco Use Types Packs/Day Years [...] Visit (TeleHealth) Psychiatry [place] [address] Isaura García APRN [facility] [place] [address] documented as of this encounter Visit Diagnoses Not on filedocumented in this encounter Care Teams Paper Twister Tender Relationship Specialty Start Date End Date None None PCP - General 05/11/17 06/15/18 documented as of this encounter
--- OUTSIDE RECORDS SUMMARY | 2024-10-05 10:50 | XMS_ITS | Encounter Summary ---
Author Organization [facility] [place] [address] Care Team Providers Care Laminating Machine Offbearer Name Role Phone Marlin Miramontes APRN Primary Care Provider +1- [phone] Reason for Visit * Reason Onset Date Comments Medication Refill 12/17/2015 Encounter Details Date Type Department Care Team (Late st Contact Info) Description 12/17/2015 Refill Psychiatry [place] [phone] Dinesh Shields MD [facility] [place] [address] Social History Tobacco Use Types Packs/Day Years [...] Dinesh Shields MD - 12/17/2015 2:20 PM ESTFrom: Shireen Silva To: Dinesh Shields MD Sent: 12/17/2015 12:47 PM EST Subject: Medication Renewal Request Original authorizing provider: MD Shireen SMITH would like a refill of the following medications: FLUoxetine (PROZAC) 20 mg Tablet [DINESH SHIELDS MD] Preferred pharmacy: [facility] #[id number] - [address] Comment: documented in this encounter Plan of Treatment Upcoming Encounters Date Type Department Care Team (Late st Contact Info) Description 11/09/2024 11:30 AM EST TH Visit (TeleHealth) Psychiatry [place] [address] Isaura García APRN [facility] [place] [address] documented as of this encounter Visit Diagnoses Not on filedocumented in this encounter Care Teams Laminating Machine Offbearer Relationship Specialty Start Date End Date Marlin Miramontes APRN PCP - General 06/14/13 01/25/17 documented as of this encounter
--- OUTSIDE RECORDS SUMMARY | 2024-10-05 10:50 | XMS_ITS | Encounter Summary ---
Author Organization [facility] [place] [address] Care Team Providers Care Web Site Admin Name Role Phone Marlin Miramontes APRN Primary Care Provider +1- [phone] Reason for Visit * Reason Comments Medication Refill Encounter Details Date Type Department Care Team (Late st Contact Info) Description 01/04/2017 Refill Psychiatry [place] [phone] Austin Wolfe MD [facility] [place] [address] Social History Tobacco Use Types Packs/Day Years [...] Visit (TeleHealth) Psychiatry [place] [address] Isaura García APRN [facility] [place] [address] documented as of this encounter Visit Diagnoses Not on filedocumented in this encounter Care Teams Web Site Admin Relationship Specialty Start Date End Date Marlin Miramontes, DANNA PCP - General 06/14/13 01/25/17 documented as of this encounter
--- OUTSIDE RECORDS SUMMARY | 2024-10-05 10:50 | XMS_ITS | Encounter Summary ---
Author Organization [facility] [place] [address] Care Team Providers Care Commissioning Specialist Name Role Phone None Primary Care Provider Unavailabl e Reason for Visit * Reason Onset Date Comments Medication Refill 09/28/2017 Encounter Details Date Type Department Care Team (Late st Contact Info) Description 09/28/2017 Refill Psychiatry [place] [phone] Laura Villalobos MD [facility] [place] [address] Social History Tobacco Use Types Packs/Day Years [...] Psychiatry [place] [phone] Isaura García APRN [facility] [place] [address] documented as of this encounter Visit Diagnoses Not on filedocumented in this encounter Care Teams Commissioning Specialist Relationship Specialty Start Date End Date None None PCP - General 05/11/17 06/15/18 documented as of this encounter
--- OUTSIDE RECORDS SUMMARY | 2024-10-05 10:50 | XMS_ITS | Encounter Summary ---
Author Organization [facility] [place] [address] Care Team Providers Care Flag Maker Name Role Phone Miramontes, Marlin Ashtyn CLAY Primary Care Provider +1- [phone] Reason for Visit * Reason Onset Date Comments Medication Refill 10/19/2015 Encounter Details Date Type Department Care Team (Late st Contact Info) Description 10/19/2015 Refill Psychiatry [place] [phone] Austin Wolfe MD [facility] [place] [address] Social History Tobacco Use Types Packs/Day Years [...] Visit (TeleHealth) Psychiatry [place] [phone] Isaura García APRN [facility] [place] [address] documented as of this encounter Visit Diagnoses Not on filedocumented in this encounter Care Teams Flag Maker Relationship Specialty Start Date End Date Marlin Miramontes APRN PCP - General 06/14/13 01/25/17 documented as of this encounter
--- OUTSIDE RECORDS SUMMARY | 2024-10-05 10:50 | XMS_ITS | Encounter Summary ---
Author Organization [facility] Y[place] [id number] Care Team Providers Care Vendette Name Role Phone Unknown Primary Care Provider Unavailabl e Reason for Visit * Reason Onset Date Comments Medication Refill 04/29/2017 Encounter Details Date Type Department Care Team (Late st Contact Info) Description 04/30/2017 Refill Psychiatry [place] [address] Dinesh Shields MD [facility] [place] [address] Social History Tobacco Use Types Packs/Day Years [...] Dinesh Shields MD - 04/30/2017 10:02 AM EDTFrom: Shireen Silva To: Dinesh Shields MD Sent: 04/29/2017 9:57 PM EDT Subject: Medication Renewal Request Original authorizing provider: MD Shireen SMITH would like a refill of the following medications: zolpidem (AMBIEN) 5 mg Tablet [DINESH SHIELDS MD] Preferred pharmacy: [facility] #[id number] - [address] Comment: documented in this encounter Plan of Treatment Upcoming Encounters Date Type Department Care Team (Late st Contact Info) Description 11/09/2024 11:30 AM EST TH Visit (TeleHealth) Psychiatry [place] [address] Isaura García APRN [facility] [place] [address] documented as of this encounter Visit Diagnoses Not on filedocumented in this encounter Care Teams Vendette Relationship Specialty Start Date End Date Unknown None PCP - General 01/26/17 05/10/17 documented as of this encounter
--- OUTSIDE RECORDS SUMMARY | 2024-10-05 10:50 | XMS_ITS | Encounter Summary ---
Author Organization [facility] [place] [address] Care Team Providers Care Bottle And Glass Inspector Name Role Phone Marlin Miramontes APRN Primary Care Provider +1- [phone] Reason for Visit * Reason Onset Date Comments Medication Refill 10/14/2016 Encounter Details Date Type Department Care Team (Late st Contact Info) Description 10/15/2016 Refill Psychiatry and [place] [phone] Dinseh Shields MD [facility] [place] [address] Social History Tobacco Use Types Packs/Day Years [...] Dinesh Shields MD - 10/15/2016 9:19 AM ESTFrom: Shireen Silva To: Dinesh Shields MD Sent: 10/14/2016 1:29 AM EST Subject: Medication Renewal Request Original authorizing provider: MD Shireen SMITH would like a refill of the following medications: zolpidem (AMBIEN) 5 mg Tablet [DINESH SHIELDS MD] Preferred pharmacy: [facility] - [address] Comment: documented in this encounter Plan of Treatment Upcoming Encounters Date Type Department Care Team (Late st Contact Info) Description 11/09/2024 11:30 AM EST TH Visit (TeleHealth) Psychiatry and Behavior[place] [address] Isaura García APRN [facility] [place] [address] documented as of this encounter Visit Diagnoses Not on filedocumented in this encounter Care Teams Bottle And Glass Inspector Relationship Specialty Start Date End Date Marlin Miramontes APRN PCP - General 06/14/13 01/25/17 documented as of this encounter
--- OUTSIDE RECORDS SUMMARY | 2024-10-05 10:50 | XMS_ITS | Encounter Summary ---
Author Organization [facility] [place] [address] Care Team Providers Care Aoc Operations Intelligence Chief Name Role Phone Marlin Miramontes APRN Primary Care Provider +1- [phone] Reason for Visit * Reason Onset Date Comments Medication Refill 07/07/2016 Encounter Details Date Type Department Care Team (Late st Contact Info) Description 07/07/2016 Refill Psychiatry [place] [phone] Dinesh Shields MD [facility] [place] [address] Social History Tobacco Use Types Packs/Day Years [...] Telephone Encounter - Dinesh Shields MD - 07/07/2016 12:05 PM EDTFrom: Shireen Silva To: Dinesh Shields MD Sent: 07/07/2016 10:33 AM EDT Subject: Medication Renewal Request Original authorizing provider: MD Shireen SMITH would like a refill of the following medications: zolpidem (AMBIEN) 5 mg Tablet [DINESH SHIELDS MD] Preferred pharmacy: [facility] [id number] - [address] Comment: documented in this encounter Plan of Treatment Upcoming Encounters Date Type Department Care Team (Late st Contact Info) Description 11/09/2024 11:30 AM EST TH Visit (TeleHealth) Psychiatry [place] [address] Isaura García APRN [facility] [place] [address] documented as of this encounter Visit Diagnoses Not on filedocumented in this encounter Care Teams Aoc Operations Intelligence Chief Relationship Specialty Start Date End Date Marlin Miramontes APRN PCP - General 06/14/13 01/25/17 documented as of this encounter
--- OUTSIDE RECORDS SUMMARY | 2024-10-05 10:50 | XMS_ITS | Encounter Summary ---
Author Organization [facility] [place] [address] Care Team Providers Care Compound Coating Machine Offbearer Name Role Phone None Primary Care Provider Unavailabl e Reason for Visit * Reason Comments Bipolar Disorder Encounter Details Date Type Department Care Team (Late st Contact Info) Description 05/10/2018 10:00 AM EDT Office Visit Psychiatry [place] [address] Laura Villalobos MD [facility] [place] [address] Bipolar affective disorder, remission status unspecified Social [...] 167.6 cm (5' 5.98) 05/10/2018 10:11 AM E DT Body Mass Index 27.13 05/10/2018 10:11 AM EDT documented in this encounter Progress Notes * Laura Villalobos Mayuri - 05/10/2018 10:00 AM EDT ESTABLISHED ADULT [...] per patient - most recent prescription came insmaller pills which are harder to break so she has been taking a full tablet. She is taking it nightly now from anxiety and having a hard time sleeping. She is going to therapy - her therapy is moving so she is looking into some options. She reports itis going ok. No ativan or zyprexa recently in the past few months. She is sleeping 6 hours per night which is her usual. She reports per thoughts of hurting herself she says it's at the usual per patient which is at the same level as at the last appointment. Patient reports per patient could do - she reports she wouldn't intent to to them. she reports it is at the same level as at her most recent appointment. Shedenies intent or plan to harm herself. 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 There are no [...] plan? Yes * Demetrius Deng MD - 05/10/2018 10:00 AM EDT PSYCHIATRY TEACHING PHYSICIAN INVOLVEMENT Location: Adult Psychiatry Medication Clinic, [facility] Attending Physician: Demetrius Deng MD Resident [...] lower in terms of mood. Does not wantto make a medication change today but we [...] Visit (TeleHealth) Psychiatry [place] [address] Isaura García APRN [facility] [place] [address] documented as of this encounter Visit Diagnoses Diagnosis Bipolar affective disorder, remission status unspecified documented in this encounter Care Teams Compound Coating Machine Offbearer Relationship Specialty Start Date End Date None None PCP - General 05/11/17 06/15/18 documented as of this encounter
--- OUTSIDE RECORDS SUMMARY | 2024-10-05 10:50 | XMS_ITS | Encounter Summary ---
Author Organization [facility] [place] [address] Care Team Providers Care All Source Analyst Name Role Phone Marlin Miramontes DANNA Primary Care Provider [phone] Encounter Details Date Type Department Care Team (Late st Contact Info) Description 03/24/2016 9:30 AM EDT Office Visit Psychiatry [place] [phone] Austin Wolfe MD [facility] [place] [address] Bipolar 1 disorder, depressed, partial remission; Encounter for long-term (current) drug use Social History Tobacco Use Types Packs/Day [...] - documented in this encounter Progress Notes * Zhanna Lorenzo MD - 03/29/2016 12:10 PM EDT PSYCHIATRY TEACHING PHYSICIAN INVOLVEMENT Location: Office Attending Physician: Zhanna Lorenzo MD Resident name: Ausitn Wolfe MD I saw and evaluated the [...] so we reiterated the link between alcohol, depression, and anxiety and asked her to minimize the drinking. We have an ongoing negotiation with Ms. Silva regarding the dosing of fluoxetine in the context of her bipolar disorder. This timewe felt it polanco to leave the dose unchanged and check lithium level (with Cr, BUN, and TSH) prior to the next meeting. Her last Li level was only 0.58 but she does not want to increase the dose. Additional comments: none. * Austin Wolfe MD - 03/24/2016 10:23 AM EDT ESTABLISHED ADULT PATIENT OFFICE VISIT NOTE Time Spent: 30 min Attendee(s): pt This patient was seen with Dr. Zhanna Lorenzo See her note for confirmatory and/or revisionary documentation. HISTORY Chief Complaint: Shireen Silva is a 50 y.o. Female presents today for medication management/followup HPI: () Patient reports that since her last appointment in September she has been feeling a little bit improved, primarily in the area of motivation, noting that she has been able to help herself organize and accomplish some tasks which has been good. Overall, however she feels that her mood is unchanged,still mainly depressed with only occasional periods of euthymia. She reports she has been sleeping well (7 hrs/night with 5 mg nightly of zolpidem), but still often feels fatigued during the day and will occasionally nap. She reports ongoing SI (baseline, without plan/intent) which has not changed.She endorses some weight gain recently, but is unsure of the cause of that (less active in winter, eating more, meds?). She feels that her anxiety has been elevated overall, and reports several panicattacks in the last few months (including one last night) which is more than normal for her. She notes that her has been considering a new job and possibly moving, which threw me for a loopand has been stressful for her. She denies [...] that her EtOH consumption has been variable recently, and she regularly goes weeks without drinking, but has weeks where she does drink. She does not feel this is a problem at this time. EXAM [...] as being options. Patient is not interested inthese options at this time. May be possible [...] Visit (TeleHealth) Psychiatry [place] [address] Isaura García APRN [facility] [place] [address] documented as of this encounter Visit Diagnoses Diagnosis Bipolar 1 disorder, depressed, partial remission Bipolar I disorder, most recent episode (or current) depressed, in partial or unspecified remission Encounter for long-term (current) drug use Encounter for long-term (current) use of other medications documented in this encounter Care Teams All Source Analyst Relationship Specialty Start Date End Date Marlin Miramontes APRN PCP - General 06/14/13 01/25/17 documented as of this encounter
--- OUTSIDE RECORDS SUMMARY | 2024-10-05 10:50 | XMS_ITS | Encounter Summary ---
Author Organization [facility] [place] [address] Care Team Providers Care Manager Family Name Role Phone Virginie Gudino APRN Primary Care Provider [phone] Reason for Visit * Reason Comments Medication Refill Encounter Details Date Type Department Care Team (Late st Contact Info) Description 10/07/2016 Refill Psychiatry [place] [phone] Austin Wolfe MD [facility] [place] [address] Social History Tobacco Use Types Packs/Day Years [...] Visit (TeleHealth) Psychiatry [place] [address] Isaura García APRN [facility] [place] [address] documented as of this encounter Visit Diagnoses Not on filedocumented in this encounter Care Teams Manager Family Relationship Specialty Start Date End Date Virginie Gudino CASING OPERATOR [address] [place] [address] PCP - General Family Medicine 06/16/18 07/31/24 documented as of this encounter
--- OUTSIDE RECORDS SUMMARY | 2024-10-05 10:50 | XMS_ITS | Encounter Summary ---
Author Organization [facility] [place] [address] Care Team Providers Care Jacquard Card Lacer Name Role Phone Marlin Miramontes APRN Primary Care Provider [phone] Reason for Visit * Reason Comments Medication Refill Encounter Details Date Type Department Care Team (Late st Contact Info) Description 08/13/2016 Refill Psychiatry [place] [phone] Austin Wolfe MD [facility] [place] [address] Social History Tobacco Use Types Packs/Day Years [...] Visit (TeleHealth) Psychiatry [place] [address] Isaura García APRN [facility] [address] documented as of this encounter Visit Diagnoses Not on filedocumented in this encounter Care Teams Jacquard Card Lacer Relationship Specialty Start Date End Date Marlin Miramontes, DANNA PCP - General 06/14/13 01/25/17 documented as of this encounter
--- OUTSIDE RECORDS SUMMARY | 2024-10-05 10:50 | XMS_ITS | Encounter Summary ---
Author Organization [facility] [place] [address] Care Team Providers Care Office Clin Asst Name Role Phone Virginie Gudino APRN Primary Care Provider [phone] Reason for Visit * Reason Comments Medication Refill Encounter Details Date Type Department Care Team (Late st Contact Info) Description 12/17/2016 Refill Psychiatry [place] [phone] Fidel Perez MD [facility] [place] [address] Social History Tobacco Use Types Packs/Day Years [...] Visit (TeleHealth) Psychiatry [place] [address] Isaura García APRN [facility] [place] [address] documented as of this encounter Visit Diagnoses Not on filedocumented in this encounter Care Teams Office Clin Asst Relationship Specialty Start Date End Date Virginie Gudino CAREER DEVELOPMENT COUNSELOR [address] [place] [address] PCP - General Family Medicine 06/16/18 07/31/24 documented as of this encounter
--- OUTSIDE RECORDS SUMMARY | 2024-10-05 10:50 | XMS_ITS | Encounter Summary ---
Author Organization [facility] Y[place] [id number] Care Team Providers Care Claims Service Adjustor Name Role Phone Unknown Primary Care Provider Unavailabl e Reason for Visit * Reason Onset Date Comments Medication Refill 01/26/2017 Encounter Details Date Type Department Care Team (Late st Contact Info) Description 01/26/2017 Refill Psychiatry [place] [address] Dinesh Shields MD [facility] [place] [address] Social History Tobacco Use Types Packs/Day Years [...] Dinesh Shields MD - 01/26/2017 3:16 PM ESTFrom: Shireen Silva To: Dinesh Shields MD Sent: 01/26/2017 2:57 PM EST Subject: Medication Renewal Request Original authorizing provider: MD Shireen SMITH would like a refill of the following medications: zolpidem (AMBIEN) 5 mg Tablet [DINESH SHIELDS MD] Preferred pharmacy: [facility] #[id number] - [address] Comment: documented in this encounter Plan of Treatment Upcoming Encounters Date Type Department Care Team (Late st Contact Info) Description 11/09/2024 11:30 AM EST TH Visit (TeleHealth) Psychiatry [place] [address] Isaura García APRN [facility] [place] [address] documented as of this encounter Visit Diagnoses Not on filedocumented in this encounter Care Teams Claims Service Adjustor Relationship Specialty Start Date End Date Unknown None PCP - General 01/26/17 05/10/17 documented as of this encounter
--- OUTSIDE RECORDS SUMMARY | 2024-10-05 10:50 | XMS_ITS | Encounter Summary ---
Author Organization [facility] [place] [address] Care Team Providers Care Cosmetics Presser Name Role Phone None Primary Care Provider Unavailabl e Reason for Visit * Reason Onset Date Comments Medication Refill 06/18/2017 Encounter Details Date Type Department Care Team (Late st Contact Info) Description 06/18/2017 Refill Psychiatry and Behavioral [place] [address] Laura Villalobos MD [facility] [place] [address] Social History Tobacco Use Types Packs/Day Years [...] Notes * Telephone Encounter - Laura Villalobos - 06/18/2017 2:17 PM EDT Spoke to [...] Visit (TeleHealth) Psychiatry and Behavior[place] [address] Isaura García APRN [facility] [place] [address] documented as of this encounter Visit Diagnoses Not on filedocumented in this encounter Care Teams Cosmetics Presser Relationship Specialty Start Date End Date None None PCP - General 05/11/17 06/15/18 documented as of this encounter
--- OUTSIDE RECORDS SUMMARY | 2024-10-05 10:50 | XMS_ITS | Encounter Summary ---
Author Organization [facility] [place] [address] Care Team Providers Care Pediatric Lpn Name Role Phone MariettaVirginie ventura DANNA Primary Care Provider [phone] Reason for Visit * Reason Onset Date Comments Medication Refill 08/28/2017 Encounter Details Date Type Department Care Team (Late st Contact Info) Description 08/28/2017 Refill Psychiatry [place] [phone] Laura Villalobos MD [facility] [place] [address] Social History Tobacco Use Types Packs/Day Years [...] Visit (TeleHealth) Psychiatry [place] [phone] Isaura García APRN [facility] [place] [address] documented as of this encounter Visit Diagnoses Not on filedocumented in this encounter Care Teams Pediatric Lpn Relationship Specialty Start Date End Date Virginie Gudino, SNOW REMOVER [address] [place] [address] PCP - General Family Medicine 06/16/18 07/31/24 documented as of this encounter
--- OUTSIDE RECORDS SUMMARY | 2024-10-05 10:50 | XMS_ITS | Encounter Summary ---
Author Organization [facility] [place] [address] Care Team Providers Care Loom Tuner Name Role Phone Marlin Miramontes APRN Primary Care Provider [phone] Reason for Visit * Reason Onset Date Comments Medication Refill 12/26/2016 Encounter Details Date Type Department Care Team (Late st Contact Info) Description 12/26/2016 Refill Psychiatry [place] [phone] Dinesh Shields MD [facility] [place] [address] Social History Tobacco Use Types Packs/Day Years [...] Dinesh Shields MD - 12/26/2016 2:11 PM ESTFrom: Shireen Silva To: Dinesh Shields MD Sent: 12/26/2016 1:33 PM EST Subject: Medication Renewal Request Original authorizing provider: MD Shireen SMITH would like a refill of the following medications: zolpidem (AMBIEN) 5 mg Tablet [DINESH SHIELDS MD] Preferred pharmacy: [id number] - [address] Comment: documented in this encounter Plan of Treatment Upcoming Encounters Date Type Department Care Team (Late st Contact Info) Description 11/09/2024 11:30 AM EST TH Visit (TeleHealth) Psychiatry [place] [address] Isaura García APRN [facility] [place] [address] documented as of this encounter Visit Diagnoses Not on filedocumented in this encounter Care Teams Loom Tuner Relationship Specialty Start Date End Date Marlin Miramontes APRN PCP - General 06/14/13 01/25/17 documented as of this encounter
--- OUTSIDE RECORDS SUMMARY | 2024-10-05 10:50 | XMS_ITS | Encounter Summary ---
Author Organization [facility] [place] [address] Care Team Providers Care Reservations Specialist Name Role Phone Unknown Primary Care Provider Unavailabl e Encounter Details Date Type Department Care Team (Late st Contact Info) Description 03/23/2017 1:30 PM EDT Office Visit Psychiatry and Behavioral Health at [facility] [place] [address] Austin Wolfe MD [facility] PS[place]CHIATRY [place] [id number] Bipolar disorder, current episode depressed, severe, without [...] Progress Notes * Austin Wolfe MD - 03/23/2017 1:30 PM [...] Notes she is particularly concerned about weight, and wonders if that is the fluoxetine. She states she isn't sure if she wants to give up on the fluoxetine or not. Endorses increased EtOH use, she acknowledges that this doesn't help in the long-term, but relaxes and helps to calm rapid thoughts. She endorses 3-4 drinks/day. Denies feeling like this is out of control, denies risky behavior (such as driving while intoxicated). No problems with withdrawal when she doesn't drink. Currently endorses sleeping more, [...] Sleep. 30 tablet 0 ??? FLUoxetine (PROZAC) 40 mg Capsule TAKE [...] History: Citalopram Venlafaxine Fluoxetine Bupropion (current) Risperidone [place] (current) Oxcarbazepine Clonazepam Lorazepam (current) Zolpidem (current) [...] disorder, current episode depressed. Her symptoms are minimally worse. Patient continues to report ongoing depression, and has had no substantial improvement with optimallithium therapy (level in February 0.82) and fluoxetine [...] feeling her mood drives her substance use. Webriefly discussed medication options, but she would like [...] plan. Patient understands the plan? Yes * Kirsten Chawla DO - 03/23/2017 1:30 PM [...] bipolar depression in her best interest, and Latudawith far better AE and metabolic profile than other options. Should be dosed twice daily as tolerated--consider doing so at next visit prior to transfer of care. documented in this encounter Plan of Treatment Upcoming Encounters Date Type Department Care Team (Late st Contact Info) Description 11/09/2024 11:30 AM EST TH Visit (TeleHealth) Psychiatry [place] [phone] Isaura García, SUBSTATION SUPERVISOR [facility] [place] [address] documented as of this encounter Visit Diagnoses Diagnosis Bipolar disorder, current episode depressed, severe, without psychotic features Bipolar I disorder, most recent episode (or current) depressed, severe, without mention of psychotic behavior documented in this encounter Care Teams Reservations Specialist Relationship Specialty Start Date End Date Unknown None PCP - General 01/26/17 05/10/17 documented as of this encounter
--- OUTSIDE RECORDS SUMMARY | 2024-10-05 10:50 | XMS_ITS | Encounter Summary ---
Author Organization [facility] [place] [address] Care Team Providers Care Channel Opener Outsoles Name Role Phone Unknown Primary Care Provider Unavailabl e Encounter Details Date Type Department Care Team (Late st Contact Info) Description 03/05/2017 External Results Psychiatry [place] [address] Provider, Scanning Social History Tobacco Use Types [...] Visit (TeleHealth) Psychiatry [place] [phone] Isaura García APRN [facility] [place] [address] documented as of this encounter Procedures Procedure Name Priority Date/Time Associated Diagnosis Comments LAB SCAN Routine 03/04/2017 documented in this encounter Results * Scan Doc: Lab (03/04/2017) Scanning Provider MEDIA MGR SCAN EXT O RDR/RSLT documented in this encounter Visit Diagnoses Not on filedocumented in this encounter Care Teams Channel Opener Outsoles Relationship Specialty Start Date End Date Unknown None PCP - General 01/26/17 05/10/17 documented as of this encounter
--- OUTSIDE RECORDS SUMMARY | 2024-10-05 10:50 | XMS_ITS | Encounter Summary ---
Author Organization [facility] [place] [address] Care Team Providers Care Cyanide Case Hardener Name Role Phone Virginie Gudino APRN Primary Care Provider [phone] Reason for Visit * Reason Comments Medication Refill Encounter Details Date Type Department Care Team (Late st Contact Info) Description 06/14/2016 Refill Psychiatry [place] [address] Austin Wolfe MD [facility] [place] [address] Social History Tobacco Use Types Packs/Day Years [...] Visit (TeleHealth) Psychiatry [place] [address] Isaura García APRN [facility] [place] [address] documented as of this encounter Visit Diagnoses Not on filedocumented in this encounter Care Teams Cyanide Case Hardener Relationship Specialty Start Date End Date Virginie Gudino INSULATION MANAGER [address] [place] [address] PCP - General Family Medicine 06/16/18 07/31/24 documented as of this encounter
--- OUTSIDE RECORDS SUMMARY | 2024-10-05 10:50 | XMS_ITS | Encounter Summary ---
Author Organization [facility] Address [facility] [place] [address] Care Team Providers Care Terminal Worker Name Role Phone None Primary Care Provider Unavailabl e Encounter Details Date Type Department Care Team (Late st Contact Info) Description 05/12/2017 Notes Only Psychiatry [place] [address] Austin Wolfe MD [facility] [address] PSYCHIATRY [place] [id number] Social History Tobacco Use Types Packs/Day Years [...] Progress Notes * Austin Wolfe MD - 05/12/2017 1:25 PM EDT Termination/Transfer note ?? Treatment start date: 06/25/15 ?? Treatment termination/transfer date: 05/16 ?? Diagnosis: Bipolar I disorder, MALVIN ?? Brief treatment Summary: Patient on lithium, bupropion, fluoxetine, and zolipidem at time of assumption of care. Deltana titrated up once to achieve better symptom [...] every 6 hours as needed (panic attacks). 21 tablet 3 ??? OLANZapine (ZYPREXA) 2.5 [...] medication trials: Citalopram Venlafaxine Fluoxetine Bupropion Risperidone Deltana (current at 600 mg and 900 mg daily) Oxcarbazepine Clonazepam Lorazepam Zolpidem (current at 5 mg nightly PRN insomnia) Eszopiclone Lurasidone (current at 60 mg daily) Brief formulation/assessment of patient: 52 year old female with bipolar I disorder, most recent episode depressed, in partial remission andhistorically diagnosed MALVIN. 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 During this course of treatment saw little improvement with careful use of SSRI, but did see significant improvement with addition of lurasidone to lithium/zolpidem regimen. Patient does report possible akithisia with lurasidone, but feels the benefits of improved mood outweigh possible side effects. If akithisia continues or worsens, may consider a trial of propranolol or benztropine. Brief treatment plan: Deltana 600 mg QAM, 900 mg Q PM Zolpidem 5 mg QHS PRN insomnia Lurasidone 60 mg daily (can continue to titrate as tolerated) ?? Name of new provider: Laura Villalobos MD documented in this encounter Plan of Treatment Upcoming Encounters Date Type Department Care Team (Late st Contact Info) Description 11/09/2024 11:30 AM EST TH Visit (TeleHealth) Psychiatry [place] [address] Isaura García APRN [facility] [place] [address] documented as of this encounter Visit Diagnoses Not on filedocumented in this encounter Care Teams Terminal Worker Relationship Specialty Start Date End Date None None PCP - General 05/11/17 06/15/18 documented as of this encounter
--- OUTSIDE RECORDS SUMMARY | 2024-10-05 10:50 | XMS_ITS | Encounter Summary ---
Author Organization [facility] [place] [address] Care Team Providers Care Cullet Trucker Name Role Phone Marlin Miramontes DANNA Primary Care Provider +1- [phone] Encounter Details Date Type Department Care Team (Late st Contact Info) Description 09/22/2016 3:30 PM EDT Office Visit Psychiatry [place] [phone] Austin Wolfe MD [facility] [place] [address] Bipolar affective disorder, currently depressed, moderate Social [...] documented in this encounter Progress Notes * Austin Wolfe MD - 09/22/2016 3:30 PM EDT ESTABLISHED ADULT PATIENT OFFICE VISIT NOTE Time Spent: 30 min Attendee(s): Pt This patient was seen with Dr. Thomas Deng See her note for confirmatory and/or revisionary documentation. HISTORY Chief Complaint: Shireen Silva is a 51 y.o. Female presents today for medication management/followup HPI: () Patient reports things are not great overall, noting a lot of stress in her environment. She reports that her therapist feels her baseline is depressed but functional, but without much capacity to absorb stress. She reports feeling more anxious and depressed in response to what's been happening- primarily financial concerns. Still in the process of refinancing the house, which is a drawn-outprocess and causing more stress. Reports ongoing chronic [...] TWO TABLETS BY MOUTH EVERY MORNING AND 3 TABLETS AT NIGHT 150 tablet 3 ??? zolpidem [...] depressed. Her symptoms are minimally worse. She reports a worsening [...] SSRI given her previous activated response. She is agreeable to check labs and then will discuss options for medication changes. PLAN: Continue current medications without adjustment at this time May consider increase lithium by 300 mg or fluoxetine by 10 mg based on lithium level Labs: [place] level BMP TSH RTC in 6-8 weeks (will call patient to discuss lab results when they come in). Patient Instruction/Education provided: Patient provided written and verbal instructions regarding treatment plan. Patient understands the plan? Yes * Demetrius Deng MD - 09/22/2016 3:30 PM EDT PSYCHIATRY TEACHING PHYSICIAN INVOLVEMENT Location: Adult [facility], [address] Attending Physician: Demetrius Deng MD Resident [...] has been depression for past several years. Stable. No SI or HI. No substance abuse. DEMETRIUS DENG MD documented in this encounter Plan of Treatment Upcoming Encounters Date Type Department Care Team (Late st Contact Info) Description 11/09/2024 11:30 AM EST TH Visit (TeleHealth) Psychiatry [place] [address] Isaura García APRN [facility] [place] [address] documented as of this encounter Visit Diagnoses Diagnosis Bipolar affective disorder, currently depressed, moderate Bipolar I disorder, most recent episode (or current) depressed, moderate documented in this encounter Care Teams Cullet Trucker Relationship Specialty Start Date End Date Marlin Miramontes APRN PCP - General 06/14/13 01/25/17 documented as of this encounter
--- OUTSIDE RECORDS SUMMARY | 2024-10-05 10:50 | XMS_ITS | Encounter Summary ---
Author Organization [facility] [place] [address] Care Team Providers Care Building Dismantler Name Role Phone None Primary Care Provider Unavailabl e Encounter Details Date Type Department Care Team (Late st Contact Info) Description 07/20/2017 10:30 AM EDT Office Visit Psychiatry and [place] [phone] Laura Villalobos MD [facility] PSYCHIATRY [place] [id number] Bipolar disorder, current episode depressed, severe, without [...] Progress Notes * Demetrius Deng MD - 07/20/2017 10:30 AM EDT PSYCHIATRY TEACHING PHYSICIAN INVOLVEMENT Location: Adult Psychiatry Medication Clinic, [address] Attending Physician: Demetrius Deng MD Resident [...] Normal BMP and TSH DEMETRIUS DENG MD * Laura Villalobos - 07/20/2017 10:30 AM EDT ESTABLISHED ADULT PATIENT OFFICE VISIT NOTE Time Spent: 60 min Attendee(s): Ms. Silva This patient was seen with Dr. Demetrius Deng See her note for confirmatory and/or revisionary documentation. HISTORY Chief Complaint: Shireen Silva is a 52 y.o. Female presents today for medication management/followup HPI: Ok I guess, I'm not that [...] also gained weight prior to that. - [place] she had been heading towards a manic episode in [address] Wolfe for the firsttime - was spending more. - Has been seeing a therapist every 2 weeks, has been good - has seen him less often over the summer, hasn't seen him in a month. She is planning to see him tomorrow and thinks now she will see himevery 2 weeks again - recommended that she [...] of restlessness. - Just started volunteering at [facility] - wanted to see how [...] Endocrine: Hematologic/Lymphatic: Allergic/Immunological: No Known Allergies PFSH: (0) Past Medical/Psychiatric History: no interval change No psychiatric hospitalizations. Per Dr. Wolfe's note 05/12/17: Past medication trials: ?Citalopram ?Venlafaxine ?Fluoxetine ?Bupropion ?Risperidone ?[place] (current at 600 mg and 900 mg daily) ?Oxcarbazepine ?Clonazepam ?Lorazepam ?Zolpidem (current at 5 mg nightly PRN insomnia) ?Eszopiclone Lurasidone Family Psychiatric and Medical History: no interval change Social History: Son is entering senior year which she reports is exciting. 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 EXAM [05/08/14 bullets (incl VS)] Constitutional [...] disorder presenting for medication management/follow up. She reports she initially had a [...] Visit (TeleHealth) Psychiatry and [place] [address] Isaura García APRN [facility] [place] [address] documented as of this encounter Results * [...] intervals supplied above were not validated at [facility]. Results from pediatric patients should be interpreted [...] LABORATORY Est Glomerular Filtration Rate >60 >=60 [facility] Comment: This estimated GFR [...] the following links into your internet browser. [email or web address] Blood specimen (specimen) 08/24/2017 9:53 AM EDT 08/24/2017 9:57 AM EDT Narrative Resulting Agency Comment Spec In Lab Demetrius Deng MD CHEMISTRY ORDERABLES Performing Organization Address [facility] de Phone Number [facility] [place] [address] * [place] level (08/24/2017 9:53 AM EDT) [place] 0.75 mmol/L [facility] Comment: Therapeutic level for bipolar depression: 0.60-1.20 mmol/L Action Level: ?? Acute toxicity: ?>4.00 mmol/L ?? Chronic toxicity: ??>1.50 mmol/L Values greater than or equal to the action level necessitate clinical intervention. ??Values less than this level may necessitate intervention based on clinical condition of the patient. Ref: ??Goldfrank? s Toxicologic Emergencies 6th ed 1998; p. 967 Blood specimen (specimen) 08/24/2017 9:53 AM EDT 08/24/2017 9:57 AM EDT Narrative Resulting Agency Comment Spec In Lab Demetrius Deng MD CHEMISTRY ORDERABLES Performing Organization Address [facility] Co de Phone Number [facility] [place] [address] documented in this encounter Visit Diagnoses Diagnosis Bipolar disorder, current episode depressed, severe, without psychotic features Bipolar I disorder, most recent episode (or current) depressed, severe, without mention of psychotic behavior documented in this encounter Care Teams Building Dismantler Relationship Specialty Start Date End Date None None PCP - General 05/11/17 06/15/18 documented as of this encounter
--- OUTSIDE RECORDS SUMMARY | 2024-10-05 10:50 | XMS_ITS | Encounter Summary ---
Author Organization [facility] [place] [address] Care Team Providers Care Housing Manager Name Role Phone Marlin Miramontes APRN Primary Care Provider +1- [phone] Reason for Visit * Reason Onset Date Comments Medication Refill 10/15/2015 Encounter Details Date Type Department Care Team (Late st Contact Info) Description 10/15/2015 Refill Psychiatry [place] [phone] Dinesh Shields MD [facility] [place] [address] Social History Tobacco Use Types Packs/Day Years [...] Dinesh Shields MD - 10/15/2015 1:14 PM ESTFrom: Shireen Silva To: Dinesh Shields MD Sent: 10/15/2015 9:34 AM EST Subject: Medication Renewal Request Original authorizing provider: MD Shireen SMITH would like a refill of the following medications: FLUoxetine (PROZAC) 20 mg Tablet [DINESH SHIELDS MD] Preferred pharmacy: [id number] - [address] Comment: I do not see it listed but I also need to renew: Zolpidem Tartrate 10 mg Tab. Thank You. documented in this encounter Plan of Treatment Upcoming Encounters Date Type Department Care Team (Late st Contact Info) Description 11/09/2024 11:30 AM EST TH Visit (TeleHealth) Psychiatry [place] [address] Isaura García APRN [facility] [place] [address] documented as of this encounter Visit Diagnoses Not on filedocumented in this encounter Care Teams Housing Manager Relationship Specialty Start Date End Date Marlin Miramontes APRN PCP - General 06/14/13 01/25/17 documented as of this encounter
--- OUTSIDE RECORDS SUMMARY | 2024-10-05 10:50 | XMS_ITS | Encounter Summary ---
Author Organization [facility] [place] [address] Care Team Providers Care Clip Loading Machine Feeder Name Role Phone Marlin Miramontes APRN Primary Care Provider +1- [phone] Reason for Visit * Reason Onset Date Comments Medication Refill 08/07/2016 Encounter Details Date Type Department Care Team (Late st Contact Info) Description 08/07/2016 Refill Psychiatry [place] [phone] Dinesh Shields MD [facility] [place] [address] Social History Tobacco Use Types Packs/Day Years [...] Dinesh Shields MD - 08/07/2016 10:47 AM EDTFrom: Shireen Silva To: Dinesh Shields MD Sent: 08/07/2016 6:39 AM EDT Subject: Medication Renewal Request Original authorizing provider: MD Shireen SMITH would like a refill of the following medications: zolpidem (AMBIEN) 5 mg Tablet [DINESH SHIELDS MD] FLUoxetine (PROZAC) 40 mg Capsule [DINESH SHIELDS MD] Preferred pharmacy: [id number] - [facility] [place] - [address] [facility] [facility] Comment: documented in this encounter Plan of Treatment Upcoming Encounters Date Type Department Care Team (Late st Contact Info) Description 11/09/2024 11:30 AM EST TH Visit (TeleHealth) Psychiatry [place] [address] Isaura García APRN [facility] [place] [address] documented as of this encounter Visit Diagnoses Not on filedocumented in this encounter Care Teams Clip Loading Machine Feeder Relationship Specialty Start Date End Date Marlin Miramontes APRN PCP - General 06/14/13 01/25/17 documented as of this encounter
--- OUTSIDE RECORDS SUMMARY | 2024-10-05 10:50 | XMS_ITS | Encounter Summary ---
Author Organization [facility] [place] [address] Care Team Providers Care Promotor Group Ticket Sales Name Role Phone Marlin Miramontes APRN Primary Care Provider +1- [phone] Encounter Details Date Type Department Care Team (Late st Contact Info) Description 07/28/2016 1:30 PM EDT Office Visit Psychiatry [place] [phone] Austin Wolfe MD [facility] [place] [place] [address] Bipolar disorder, in partial remission, most recent [...] Progress Notes * Austin Wolfe MD - 07/28/2016 1:30 PM EDT ESTABLISHED ADULT PATIENT OFFICE VISIT NOTE Time Spent: 30 min Attendee(s): pt This patient was seen with Dr. Demetrius Deng See her note for confirmatory and/or revisionary documentation. HISTORY Chief Complaint: Shireen Silva is a 51 y.o. Female presents today for medication management/followu HPI: () Patient now on 40 mg [...] but has been more actively working toward it. Feels more hopeful about things. Still having some difficulty with sleep, finds it difficult to fall asleep at night and hard to get up when she needs to in the AM. States because her family is either sleeping or working in the evenings she likes [...] needed for Sleep. 30 tablet 0 ??? LORazepam (ATIVAN) 0.5 mg Tablet Take [...] capsule for total dose of 30 mg (Patient not taking: Reported on 07/28/2016) 30 tablet 1 ??? UNABLE TO FIND Med Name: TopVisible [place] Body protein shakes. Per website, each contains [...] reviewed allergies PFSH: () Past Medical/Psychiatric History: Started with her new [...] therapy. No acute safety concerns were identified duringthis assessment. She does report an increase in goal-oriented activity (scraping the side of the house, but this was a project started months ago which she has only recently been able to make headwayon), and less sleep (which she describes as [...] plan? Yes * Demetrius Deng MD - 07/28/2016 1:30 PM EDT PSYCHIATRY TEACHING PHYSICIAN INVOLVEMENT Location: Adult Psychiatry Medication Clinic, [address] Attending Physician: Demetrius Deng MD Resident [...] has been depression for past several years. Stopped Wellbutrin after increasing Prozac to 40mg and prefers to be off wellbutrin. Mood starting to improve, also in the context of starting ACT therapy. No SI or HI. No substance abuse. No med changes today . DEMETRIUS EDNG MD documented in this encounter Plan of Treatment Upcoming Encounters Date Type Department Care Team (Late st Contact Info) Description 11/09/2024 11:30 AM EST TH Visit (TeleHealth) Psychiatry [place] [address] Isaura García APRN [facility] [place] [address] documented as of this encounter Visit Diagnoses Diagnosis Bipolar disorder, in partial remission, most recent episode depressed Bipolar I disorder, most recent episode (or current) depressed, in partial or unspecified remission documented in this encounter Care Teams Promotor Group Ticket Sales Relationship Specialty Start Date End Date Marlin Miramontes APRN PCP - General 06/14/13 01/25/17 documented as of this encounter
--- OUTSIDE RECORDS SUMMARY | 2024-10-05 10:50 | XMS_ITS | Encounter Summary ---
Author Organization [facility] [place] [address] Care Team Providers Care Packing Machine Inspector Name Role Phone Marlin Miramontes APRN Primary Care Provider +1- [phone] Reason for Visit * Reason Onset Date Comments Medication Refill 10/19/2015 Encounter Details Date Type Department Care Team (Late st Contact Info) Description 10/19/2015 Refill Psychiatry [place] [phone] Dinesh Shields MD [facility] [place] [address] Social History Tobacco Use Types Packs/Day Years [...] Telephone Encounter - Dinesh Shields MD - 10/19/2015 3:33 PM ESTFrom: Shireen Silva To: Dinesh Shields MD Sent: 10/19/2015 2:15 PM EST Subject: Medication Renewal Request Original authorizing provider: MD Shireen SMITH would like a refill of the following medications: zolpidem (AMBIEN) 10 mg Tablet [DINESH SHIELDS MD] Preferred pharmacy: [id number] - [address] Comment: My pharmacy said this afternoon that they didn't have a prescription for the zolpidem. Can it please be resent to them? I only have one half (5mg) left for tonight. Thank you. documented in this encounter Plan of Treatment Upcoming Encounters Date Type Department Care Team (Late st Contact Info) Description 11/09/2024 11:30 AM EST TH Visit (TeleHealth) Psychiatry [place] [address] Isaura García APRN [facility] [place] [address] documented as of this encounter Visit Diagnoses Not on filedocumented in this encounter Care Teams Packing Machine Inspector Relationship Specialty Start Date End Date Marlin Miramontes APRN PCP - General 06/14/13 01/25/17 documented as of this encounter
--- OUTSIDE RECORDS SUMMARY | 2024-10-05 10:51 | XMS_ITS | Encounter Summary ---
Author Organization [facility] [place] [address] Care Team Providers Care Assistant Case Manager Name Role Phone Marlin Miramontes APRN Primary Care Provider +1- [phone] Reason for Visit * Reason Onset Date Comments Medication Refill 05/09/2015 Encounter Details Date Type Department Care Team (Late st Contact Info) Description 05/09/2015 Refill Psychiatry [place] [phone] Adalberto Krishnamurthy MD [facility] [place] [address] Bipolar I disorder, most recent episode (or [...] encounter Miscellaneous Notes * Telephone Encounter - Adalberto Krishnamurthy MD - 05/09/2015 1:45 PM EDTFrom: Shireen Silva To: Adalberto Krishnamurthy MD Sent: 05/09/2015 10:05 AM EDT Subject: Medication Renewal Request Original authorizing provider: MD Shireen DE [place] would like a refill of the following medications: lithium (LITHOBID) 300 mg Tablet Sustained Release [ADALBERTO KRISHNAMURTHY MD] Preferred pharmacy: [id number] - [place], [place] - [address] [facility] Comment: documented in this encounter Plan of Treatment Upcoming Encounters Date Type Department Care Team (Late st Contact Info) Description 11/09/2024 11:30 AM EST TH Visit (TeleHealth) Psychiatry [place] [address] Isaura García APRN [facility] [place] [address] documented as of this encounter Visit Diagnoses Diagnosis Bipolar I disorder, most recent episode (or current) depressed, in partial or unspecified remission documented in this encounter Care Teams Assistant Case Manager Relationship Specialty Start Date End Date Marlin Miramontes APRN PCP - General 06/14/13 01/25/17 documented as of this encounter
--- OUTSIDE RECORDS SUMMARY | 2024-10-05 10:51 | XMS_ITS | Encounter Summary ---
Author Organization [facility] Address [facility] [place] [address] Care Team Providers Care Adjunct Professor Of Voice Name Role Phone Marlin Miramontes DANNA Primary Care Provider [phone]- [phone] Reason for Visit * Reason Comments Depression Anxiety Encounter Details Date Type Department Care Team (Late st Contact Info) Description 02/26/2015 9:40 AM EDT Office Visit Psychiatry and [place] [phone] Rupali Palomo MD [facility] [place] [address] Bipolar disorder without psychotic features (Primary Dx); High risk medication use Social History Tobacco [...] Progress Notes * Zhanna Lorenzo MD - 03/03/2015 10:06 PM [...] is countered by lithium. Also, she is experiencing some panic, so we thought the risk benefit ratio was on the side of a small increase in fluoxetine. We discussed warning signs of diana and reiterated the importance of calling us if needed.. Additional comments: none * Rupali Palomo MD - 02/26/2015 10:14 AM EDT ESTABLISHED ADULT PATIENT OFFICE VISIT NOTE Time Spent: 30 minutes Attendee(s): Patient, this science writer. This patient was seen with Dr. Zhanna Lorenzo. See her note for confirmatory and/or revisionary documentation. HISTORY Chief Complaint: Shireen Silva is a 49 y.o. woman who presents today for follow-up of her mood disorder. HPI: () Since last seen in clinic, Shireen said of her mood, I'm blah, I guess. She reported, the depression still has been an ongoing thing, and that it has been a little worse, I think, but I don't know if it's because I've been depressed so long. She denied any active suicidal thoughts, any cutting, or any violent and homicidal thoughts. She likewise endorsed no AVH. We revisited the idea of increasing her Fluoxetine (as we'd discussed at her past visit) and Shireen noted that she felt unsure aboutincreasing the Fluoxetine. I've been taking my meds and everything, I have 2 anti-depressants and I'm still depressed. I'm not sure, the Fluoxetine is the most recent change and I've gained weight. Iexercise daily and I'm wondering if that has anything to do with it. Her weight worries me a lot, and although she denied ever restricting or purging, she said, I'm conscious of what I put in my body. This science writer asked if Shireen had notice any [...] terms of her sleep, she observed that shehad been sleeping more than I was, taking more naps. She has also been imbibing alcohol more regularly than usual for the past month or so, a glass or 2 of wine most nights, but she does not feelthat this has ever been a problem for [...] 9.3 9.3 8.9 TSH 1.48 1.24 1.03 [place] Lvl 0.61 0.4 (L) 0.41 (L) Quality: In terms of depression, seems dysphoric, irritable, looking for a culprit for her perceived weight gain (wanting to make medication changes). Severity: [...] helpful. Usually takes have dose Zolpidem or herLorazepam to sleep but not both. Associated S&S: [...] daily. Take with 20 mg tablet for totalof 30 mg daily. 30 tablet 3 ??? LORazepam (ATIVAN) 0.5 mg Tablet Take 1 tablet by mouth every 6 hours as needed (panic attacks). 7 tablet 3 ??? zolpidem (AMBIEN) 10 mg Tablet Take 1 tablet by mouth nightly as needed for Sleep. 30 tablet 3 ??? lithium (LITHOBID) 300 mg Tablet Sustained Release Take 2 tablets by mouth 2 times daily. 120 tablet 3 ??? UNABLE TO FIND Med Name: [facility] Body protein shakes. Per website, each [...] rash. Did not feel any benefit from Citalopram. Had bad withdrawal with Venlafaxine if she missed [...] [facility] andhad seen Karen Mallory in [facility] (therapist) for years. Currently under the care of Lottie Carranza in [place], [place] (for the past 1 year). #Prior Suicide attempts - None endorsed. Does have history of cutting arms to relieve anxiety and not as suicidal gesture. Last cutting was 6 months ago. #Prior Medication trials - Citalopram, Venlafaxine, Fluoxetine (drove into diana in 2004), Oxcarbazepine (at high doses caused dizziness, fogginess, nausea, and worsened acne), Risperidone (helped with mood but reported to have caused a rash), [place] (Eskalith, current medication), Bupropion XL (current medication), Eszopiclone (ineffective for sleep), Oxazepam (ineffective for anxiety), Clonazepam, Zolpidem (current medication). Update (10/02) - Takes Meddle Body shakes and finds them helpful. Based on the contents (per the [employer] website and see Medication List), some drug- drug interactions need to be monitored. - Ashwagandha can be sedating when used with RACING DRIVER depressants (i.e. Clonazepam), and can increase thyroid hormone levels. - Astragalus can cause increases in serum [place] level. - Reishi mushrooms can slow clotting and cause hypotension. - Schisandra can worsen GERD symptoms and interfere with metabolism via the 2C9 and 3A4 Hcu067 enzymes. Family Psychiatric and Medical History: Brother with alcohol use disorder, possible Bipolar disorder. Paternal grandmother with unknown psychiatric diagnosis but history of psychiatric hospitalization. Paternal uncle and cousins with unknown psychiatric diagnoses but multiple suicide attempts. Social History: Born in [facility]; has 1 older brother and 2 older sisters. Has a bachelor's degree in Psychology. Had first manic episode per report in college, lasting 2-3 months. 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 Currently lives in [place], [place] with her . Has three sons (aged 13, 20, and 22) all living at home; youngest has been recipient of psychiatric care at [facility] for years for behavioral disturbance. was deployed to [place] in 2008 and returned safely. No domestic violence and everyone has been getting along well. Does not smokecigarettes. Has never been a heavy drinker but [...] recent or remote recall. ? Language: Normal Syrian. No word-finding difficulties. ? Fund of Knowledge: Seems appropriate for age and experience. Psychotherapeutic Interventions and Response: Active listening, with positive response. MEDICAL DECISION MAKING ASSESSMENT: Shireen Silva is a 49 y.o. woman with a history of the diagnosis of Bipolar 1 disorder, most recent episode depressed and MALVIN. Her depression has been somewhat worse since our last visit, although her sleep has improved. She is not suicidal, not homicidal, not hypo/manic, and not psychotic. At this time, she is amenable to increasing her Fluoxetine to 30 mg daily. We have also encouraged her not to take her Lorazepam and Zolpidem together and she typically does not do this. We willsee her back in clinic in 2 months. PLAN: Safety Risk Management: No SI or HI. Risk factors include some relationship strain, impulsivity. Protective factors include family, therapeutic alliance with a health care provider, and future plans. Continue current medication(s) with the following changes: Increase Fluoxetine to 30 mg qhs. Labs ordered: [place] level, BMP, TSH. Patient Instruction/Education provided: Patient provided verbal instructions regarding plan of care. Encouraged to be mindful of contents of nutritional supplements given potential for adverse interactions with psychiatric medications. Patient understands the plan? Yes Rupali Palomo MD Pager [phone] documented in this encounter Plan of Treatment Upcoming Encounters Date Type Department Care Team (Late st Contact Info) Description 11/09/2024 11:30 AM EST TH Visit (TeleHealth) Psychiatry and [place]al [place] [address] Isaura García APRN [facility] [place] [address] documented as of this encounter Visit Diagnoses Diagnosis Bipolar disorder without psychotic features- Primary High risk medication use Encounter for long-term (current) use of other medications documented in this encounter Care Teams Adjunct Professor Of Voice Relationship Specialty Start Date End Date Marlin Miramontes APRN PCP - General 06/14/13 01/25/17 documented as of this encounter
--- OUTSIDE RECORDS SUMMARY | 2024-10-05 10:51 | XMS_ITS | Encounter Summary ---
[facility] [place] [address] Care Team Providers Care Scale Operator Name Role Phone Marlin Miramontes APRN Primary Care Provider [phone]- [phone] Reason for Visit * Reason Onset Date Comments Medication Refill 10/23/2014 Encounter Details Date Type Department Care Team (Late st Contact Info) Description 10/23/2014 Refill Psychiatry [place] [phone] Adalberto Krishnamurthy MD [facility] [place] [address] Bipolar disorder Social History Tobacco Use Types Packs/Day [...] Adalberto Krishnamurthy MD - 10/23/2014 10:12 AM ESTFrom: Shireen Silva To: Adalberto Krishnamurthy MD Sent: 10/23/2014 9:52 AM EST Subject: Medication Renewal Request Original authorizing provider: MD Shireen DE LOS SANTOS would like a refill of the following medications: FLUoxetine (PROZAC) 20 mg tablet [ADALBERTO KRISHNAMURTHY MD] Preferred pharmacy: [id number] - [place], [place] - [address] [place] [address] Comment: documented in this encounter Plan of Treatment Upcoming Encounters Date Type Department Care Team (Late st Contact Info) Description 11/09/2024 11:30 AM EST TH Visit (TeleHealth) Psychiatry [place] [address] Isaura García APRN [facility] [place] [address] documented as of this encounter Visit Diagnoses Diagnosis Bipolar disorder Bipolar disorder, unspecified documented in this encounter Care Teams Scale Operator Relationship Specialty Start Date End Date Marlin Miramontes APRN PCP - General 06/14/13 01/25/17 documented as of this encounter
--- OUTSIDE RECORDS SUMMARY | 2024-10-05 10:51 | XMS_ITS | Encounter Summary ---
Author Organization [facility] [place] [id number] Care Team Providers Care Greens Tier Name Role Phone Marlin Miramontes DANNA Primary Care Provider [phone]- [phone] Reason for Visit * Reason Comments Depression Encounter Details Date Type Department Care Team (Late st Contact Info) Description 03/28/2014 2:10 PM EDT Office Visit Psychiatry and [place] [phone] Rupali Palomo MD [facility] [place] [address] Bipolar I disorder, most recent episode (or current) depressed, in partial or unspecified remission (Primary Dx); Bipolar disorder; Insomnia, unspecified Social History Tobacco Use Types Packs/Day [...] documented in this encounter Progress Notes * Rupali Palomo MD - 04/02/2014 9:03 PM EDT ESTABLISHED ADULT PATIENT OFFICE VISIT NOTE Time Spent: 30 minutes Attendee(s): Patient, this medical writer, MS3 Travis Edwards This patient was seen with Dr. Darryl Gonzales. See his note for confirmatory and/or revisionary documentation. HISTORY Chief Complaint: Shireen Silva is a 48 y.o. woman who presents today for follow-up of her mood disorder. HPI: () Since last seen by this medical writer, Shireen feels she has had [...] notes that she has had minor manic things mainly having to do with spending money, which urges last for a few days and most recently occurred remotely. She is currently on [place] and Bupropion, although she has cut back on her Bupropion dose (from 450 mg daily to 150 mg daily) recently when she started to run out of it. Her therapistencouraged her to speak with us about her [place], as she's been on it for 7 years and things have been fairly stable but not significantly better. She mentions that she has actually been taking halfof her prescribed dose for one year so that she could take Ibuprofen. She has been looking into Latuda and is interested in trying this despite the cost, as her research showed that it has an indication for Bipolar depression and can work with N[place]. She expressed understanding of the side effects, particularly movement disorder, but was unaware of the potential metabolic effects. She notes that she likes anything that is weight neutral. She was disappointed to hear that although she could p otentially get a julee to decrease the cost for a year, that it would not go longer than that, which would make Latuda inaccessible. She is willing to go back up to her former dose of Bupropion for now as her current regimen seems to be keeping her nearly euthymic. [...] 6.2 T4 Free-Eso 0.96 T3, Total 68 [place] Lvl 0.41 (L) Quality: In terms of depression, she is not visibly sad or slowed, and reports good sleep and appetite. Neurotic. Somewhat reticent. Severity: Based on PHQ9, moderately depressed which is reflected in her report of bad depression for the past few months but not in affect. No SI or HI; no diana or psychosis. No cutting. Duration: Endorses worse depression in the past few months. Context: Unclear if symptoms were every truly manic or hypomanic. Regimen keeping her on mostly even keel. Situation at home unchanged, maybe a little [...] mg by mouth 2 times daily. Indications: Depressionassociated with Manic Depressive Disorder ??? zolpidem (AMBIEN) [...] May 2006 andhad seen Karen Mallory in [facility] (therapist) for years. Currently under the care of Lottie Carranza in [place], [place] (for the past 1 year). #Prior [...] but reported to have caused a rash), [place] (Eskalith, current medication), Bupropion XL (current medication), Eszopiclone (ineffective for sleep), Oxazepam (ineffective for anxiety), Clonazepam, Zolpidem (current medication). Family Psychiatric and Medical History: Brother with alcohol use disorder, possible Bipolar disorder. Paternal grandmother with unknown psychiatric diagnosis but history of psychiatric hospitalization. Paternal uncle and cousins with unknown psychiatric diagnoses but multiple suicide attempts. Social History: Born in [facility]; has 1 older brother and 2 older sisters. Has a bachelor's degree in Psychology. Had first manic episode per report in college, lasting 2-3 months. 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 Currently lives in [place], [place] with her . Has three sons (aged 13, 20, and 22) all living at home; youngest has been recipient of psychiatric care at [facility] for years for behavioral disturbance. was deployed to [place] in 2008 and returned safely. No domestic violence and everyone has been getting along well. Does not smoke cigarettes. Has never been a heavy drinker and only occasionally has a glass of wine. No history of illicits (no Heroin or [...] and very nervous grin. Well-groomed and nicely dressed.Some PMA noted, a little fidgety. Cooperative but [...] recent or remote recall. ? Language: Normal Dominican. ? Fund of Knowledge: Seems appropriate for age and experience. Psychotherapeutic Interventions and Response: Active listening, with positive response. . MEDICAL DECISION MAKING ASSESSMENT: Shireen Silva is a 48 y.o. woman with a history of the diagnosis of Bipolar 1 disorder, most recent episode depressed and MALVIN. Her symptoms of depressed mood are reported to be bad despite minimal changes at home and even some improvements in her life. Based on history and chart review, not entirely clear that Bipolar disorder is the correct diagnosis for her, but cannot exclude thispossibility. She is not suicidal, no homicidal, not hypo/manic, and no psychotic. Seems mostly dysthymic, with maladaptive personality structure and difficulty accessing coping skills. Nevertheless, as medications seem to be helping with mood dysregulation, will continue for now with the following c hanges - will increase Bupropion back to 300 mg daily (between the 150 she has been taking and the 450 that she was prescribed) and will change [place] dosing to reflect her actual use (instead of 900 mg BID, she takes 450 mg BID). She is amenable [...] - Bupropion XL 300 mg qAM. - [place] CR 450 mg BID. Labs ordered: Thyroid panel, BMP, [place] level; patient given lab order sheet to have blood drawn at [facility], results to be faxed to this medical writer in April, prior to our next appointment. Patient Instruction/Education provided: Patient provided verbal instructions regarding plan of care. Patient understands the plan? Yes * Darryl Gonzales MD - 03/28/2014 3:19 PM [...] Visit (TeleHealth) Psychiatry [place] [address] Isaura García APRN [facility] [place] [address] documented as of this encounter Visit Diagnoses Diagnosis Bipolar I disorder, most recent episode (or current) depressed, in partial or unspecified remission- Primary Bipolar disorder Bipolar disorder, unspecified Insomnia, unspecified documented in this encounter Care Teams Greens Tier Relationship Specialty Start Date End Date Marlin Miramontes APRN PCP - General 06/14/13 01/25/17 documented as of this encounter
--- OUTSIDE RECORDS SUMMARY | 2024-10-05 10:51 | XMS_ITS | Encounter Summary ---
Author Organization [facility] [place] [address] Care Team Providers Care Milanese Knitting Machine Operator Name Role Phone Ayana Lai MD Primary Care Provider Encounter Details Date Type Department Care Team (Late st Contact Info) Description 07/08/2012 Orders Only Psychiatry [place] [phone] Wendy Farias MD [facility] [place] [address] Social History Tobacco Use Types Packs/Day Years [...] Visit (TeleHealth) Psychiatry [place] [phone] Isaura García APRN [facility] [place] [address] documented as of this encounter Visit Diagnoses Not on filedocumented in this encounter Care Teams Milanese Knitting Machine Operator Relationship Specialty Start Date End Date Ayana Lai MD [address] [place] [address] PCP - General 07/18/11 03/29/13 documented as of this encounter
--- OUTSIDE RECORDS SUMMARY | 2024-10-05 10:51 | XMS_ITS | Encounter Summary ---
Author Organization [facility] Address [facility] [place] [address] Care Team Providers Care Sales Support Representative Name Role Phone Ayana Lai MD Primary Care Provider [phone] Encounter Details Date Type Department Care Team (Latest Contact Info) Description 07/18/2011 9:37 AM EDT - 07/18/2011 11:59 PM EDT [place] [phone] Amari Bob MD [facility] [place] [address] Bipolar affective disorder Discharge Disposition: Home Social History Tobacco [...] Refills Start Date End Date buPROPion (WELLBUTRIN XL) 150 mg 24 hr tablet Take 3 tablets by mouth every morning. 90 tablet 2 06/11/2011 09/19/2011 lithium (LITHOBID) 300 mg CR tablet Take 3 tablets by mouth 2 times daily. 180 tablet 2 06/10/2011 09/10/2011 zolpidem (AMBIEN) 10 mg tablet Take 1 tablet by mouth nightly. 30 tablet 1 06/10/2011 07/29/2011 oxazepam (SERAX) 15 mg capsule 15 MG = 1 Capsule(s), PO, Three times daily PRN 02/12/2011 12/17/2011 documented as of this encounter Plan of Treatment Upcoming Encounters Date Type Department Care Team (Late st Contact Info) Description 11/09/2024 11:30 AM EST TH Visit (TeleHealth) Psychiatry [place] [address] Isaura García APRN [facility] [place] [address] documented as of this encounter Procedures Procedure Name Priority Date/Time Associated Diagnosis Comments T3 TOTAL Routine 07/18/2011 9:45 AM EDT Bipolar affective disorder TSH Routine 07/18/2011 9:45 AM EDT Bipolar affective disorder T4 TOTAL Routine 07/18/2011 9:45 AM EDT Bipolar affective disorder LITHIUM LEVEL Routine 07/18/2011 9:45 AM EDT Bipolar affective disorder BASIC METABOLIC PANEL Routine 07/18/2011 9:45 AM EDT Bipolar affective disorder documented in this encounter Results * [place] level (07/18/2011 9:45 AM EDT) [place] 0.60 mmol/L [facility] Comment: Therapeutic level for bipolar depression: 0.60-1.20 mmol/L Action Level: ?? Acute toxicity: ?>4.00 mmol/L ?? Chronic toxicity: ??>1.50 mmol/L Values greater than or equal to the action level necessitate clinical intervention. ??Values less than this level may necessitate intervention based on clinical condition of the patient. Ref: ??Gerald walton Toxicologic Emergencies 6th ed 1997; p. 967 Blood specimen (specimen) 07/18/2011 9:45 AM EDT 07/18/2011 9:54 AM EDT Amari Bob MD CHEMISTRY ORDERABLE S [facility] * (ABNORMAL) Basic metabolic panel (07/18/2011 9:45 AM EDT) Glucose 100 60 - 199 mg/dL [facility] Comment:Diabetes: >=200 mg/d L plus symptoms Blood Urea Nitrogen 19(H) 8 - 18 mg/dL [facility] MILLENNI[facility] Creatinine 0.78 0.70 - 1.20 mg/dL [facility] MILLENNIUM Sodium 141 135 - 145 mmol/L [facility] MILLENNIUM Potassium 4.7 3.5 - 5.0 mmol/L [facility] Comment: Please note: ??Patients with WBC >100,000 may have falsely elevated Potassium levels. ??For accurate Potassium quantification in these patients send serum separator tube (gold top) for subsequent determinations. ??Contact the Clinical Chemistry Laboratory if there are any questions. Chloride 108(H) 98 - 107 mmol/L [facility] MILLENNIUM Carbon Dioxide 26 22 - 31 mmol/L [facility] MILLENNIUM Anion Gap 7 5 - 15 mmol/L [facility] MILLENNIUM Calcium 9.5 8.5 - 10.5 mg/dL [facility] MILLENNIUM Est Glomerular Filtration Rate >60 >=60 [facility] Comment: The National Kidney Disease Education Program (NKDEP) has recommended all laboratories report estimated GFR (eGFR) along with plasma creatinine measurements to assist you with recognition of early kidney disease. Caveats: ??Plasma creatinine should be at steady-state (unchanged within the past week). For patients multiply eGFR by 1.2.MDRD equation has not been validated for pediatric patients and is only valid for patients with age >= 18 years. At present, NKDEP does NOT recommend using the MDRD equation for drug dosing purposes and pharmacists should continue to use their current dosing methods. In addition, numerical eGFR values greater than 60 ml/min/1.73 square meters should be treated as > 60, and not an exact number due to greater inaccuracies at these higher values. Per NKDEP, they classify normal renal function as any GFR >60ml/min/1.73 square meters; chronic kidney disease when GFR <60, and renal failure when GFR <15. ??This calculation may not be valid for patients with atypical muscle mass (very lean or obese), acute renal failure, and in patients with diabetic kidney disease. References: http://nkdep.nih.gov/resources/NKDEP_Suggestn4Labs_0606_508.pdf http://www.kidney.org/professionals/kls/pdf/faq_gfr.pdf Blood specimen (specimen) 07/18/2011 9:45 AM EDT 07/18/2011 9:54 AM EDT Amari Bob MD CHEMISTRY ORDERABLE S Performing Organization Address [facility] Co de Phone Number [facility] * T3 (07/18/2011 9:45 AM EDT) T3 Total 82 75 - 170 ng/dL [facility] Blood specimen (specimen) 07/18/2011 9:45 AM EDT 07/18/2011 9:54 AM EDT Amari Bob MD CHEMISTRY ORDERABLE S Performing Organization Address [facility] de Phone Number [facility] * T4 (07/18/2011 9:45 AM EDT) T4 Total 6.6 5.1 - 10.8 mcg/dL [facility] Comment: Reference Range: [place] Cord Blood: ??6.9-14.4 mcg/dL Females: ??7.2-14.2 mcg/dL Pediatric ranges: ??Interpret with caution-ranges have not been verified Blood specimen (specimen) 07/18/2011 9:45 AM EDT 07/18/2011 9:54 AM EDT Amari Bob MD CHEMISTRY ORDERABLE S Performing Organization Address [facility] de Phone Number [facility] * TSH (07/18/2011 9:45 AM EDT) Thyroid Stimulating Hormone 1.95 0.27 - 4.20 mcIU/mL [facility] Blood specimen (specimen) 07/18/2011 9:45 AM EDT 07/18/2011 9:54 AM EDT Amari Bob MD CHEMISTRY ORDERABLE S Performing Organization Address City/State/[facility] Co ks Phone Number [facility] documented in this encounter Visit Diagnoses Diagnosis Bipolar affective disorder Bipolar disorder, unspecified documented in this encounter Care Teams Sales Support Representative Relationship Specialty Start Date End Date Ayana Lai MD [address] [place] [address] PCP - General 07/18/11 03/29/13 documented as of this encounter
--- OUTSIDE RECORDS SUMMARY | 2024-10-05 10:51 | XMS_ITS | Encounter Summary ---
Author Organization [facility] Address [facility] [place] [address] Care Team Providers Care Display Associate Name Role Phone Ayana Lai MD Primary Care Provider [phone] Reason for Visit * Reason Comments Depression Encounter Details Date Type Department Care Team (Late st Contact Info) Description 08/17/2012 1:10 PM EDT Office Visit Psychiatry [place] [phone] Wendy Farias MD [facility] [place] [address] Medication adverse effect (Primary Dx); Bipolar disorder with current episode depressed Social History Tobacco Use Types [...] as of this encounter Progress Notes * Don Wright MD - 08/23/2012 10:16 PM [...] than change in psychotropic meds. Additional comments: * Wendy Farias MD - 08/19/2012 7:06 PM EDT MED MANAGEMENT Med Management (CPT [id number]) Location: Office Time Spent: 30 minutes [...] Patient was interested in taking classes at [facility] smsPREP but has not called yet because she didn't wish to inconvenience them. Typical day consists of patient staying at home where she takes care of the dog and her [...] 93 Calcium Latest Range: 8.5-10.5 mg/dL 9.6 [place] Lvl No range found 0.80 TSH Latest [...] for follow-up. Patient with no significant change indepression since last appointment on 05/19/12. Patient continues to endorse depressed depressed moodand feelings of resentment secondary to difficulty asserting [...] to sign a release for me to speakwith her therapist. 3. Follow up with PCP [...] Visit (TeleHealth) Psychiatry [place] [address] Isaura García APRN [facility] [place] [address] documented as of this encounter Results * PTH (08/17/2012 2:31 PM EDT) Parathyroid Hormone 44 15 - 65 pg/mL [facility] [employer] Blood specimen (specimen) 08/17/2012 2:31 PM EDT 08/17/2012 2:44 PM EDT Narrative Resulting Agency Comment Spec In Lab Don Wright MD CHEMISTRY ORDERABLES Performing Organization Address [facility] de Phone Number [facility] * TSH (08/17/2012 2:31 PM EDT) Thyroid Stimulating Hormone 2.19 0.27 - 4.20 mcIU/mL [facility] [employer] Blood specimen (specimen) 08/17/2012 2:31 PM EDT 08/17/2012 2:44 PM EDT Narrative Resulting Agency Comment Spec In Lab Don Wright MD CHEMISTRY ORDERABLES Performing Organization Address [facility] de Phone Number [facility] * [place] level (08/17/2012 2:31 PM EDT) [place] 0.80 mmol/L [facility] [employer] [facility] Comment: Therapeutic level for bipolar depression: 0.60-1.20 mmol/L Action Level: ?? Acute toxicity: ?>4.00 mmol/L ?? Chronic toxicity: ??>1.50 mmol/L Values greater than or equal to the action level necessitate clinical intervention. ??Values less than this level may necessitate intervention based on clinical condition of the patient. Ref: ??Gerald walton Toxicologic Emergencies 6th ed 1997; p. 967 Blood specimen (specimen) 08/17/2012 2:31 PM EDT 08/17/2012 2:44 PM EDT Narrative Resulting Agency Comment Spec In Lab Don Wright MD CHEMISTRY ORDERABLES Performing Organization Address City/State/[facility] Co ar Phone Number [facility] documented in this encounter Visit Diagnoses Diagnosis Medication adverse effect- Primary Unspecified adverse effect of unspecified drug, medicinal and biological substance Bipolar disorder with current episode depressed Bipolar I disorder, most recent episode (or current) depressed, unspecified documented in this encounter Care Teams Display Associate Relationship Specialty Start Date End Date Ayana Lai MD [address] [place] [address] PCP - General 07/18/11 03/29/13 documented as of this encounter
--- OUTSIDE RECORDS SUMMARY | 2024-10-05 10:51 | XMS_ITS | Encounter Summary ---
Author Organization [facility] [place] [address] Care Team Providers Care Rough Patcher Name Role Phone Miramontes, Marlin Chamorro APRN Primary Care Provider [phone] Reason for Visit * Reason Onset Date Comments Medication Refill 09/08/2013 Encounter Details Date Type Department Care Team (Late st Contact Info) Description 09/08/2013 Refill Psychiatry [place] [phone] Wendy Farias MD [facility] [place] [address] Social History Tobacco Use Types Packs/Day Years [...] Visit (TeleHealth) Psychiatry [place] [phone] Isaura García APRN [facility] [place] [address] documented as of this encounter Visit Diagnoses Not on filedocumented in this encounter Care Teams Rough Patcher Relationship Specialty Start Date End Date Marlin Miramontes APRN PCP - General 06/14/13 01/25/17 documented as of this encounter
--- OUTSIDE RECORDS SUMMARY | 2024-10-05 10:51 | XMS_ITS | Encounter Summary ---
Author Organization [facility] [place] [address] Care Team Providers Care Guitar Maker Name Role Phone Ayana Lai MD Primary Care Provider [phone] Reason for Visit * Reason Onset Date Comments Medication Refill 06/24/2012 Encounter Details Date Type Department Care Team (Late st Contact Info) Description 06/24/2012 Refill Psychiatry and [place] [phone] Wendy Farias MD [facility] [place] [address] Social History Tobacco Use Types Packs/Day Years [...] Visit (TeleHealth) Psychiatry and [place] [phone] Isaura García APRN [facility] [place] [address] documented as of this encounter Visit Diagnoses Not on filedocumented in this encounter Care Teams Guitar Maker Relationship Specialty Start Date End Date Ayana Lai MD [address] [place] [address] PCP - General 07/18/11 03/29/13 documented as of this encounter
--- OUTSIDE RECORDS SUMMARY | 2024-10-05 10:51 | XMS_ITS | Encounter Summary ---
Author Organization [facility] [place] [address] Care Team Providers Care Leather Currier Name Role Phone Ayana Lai MD Primary Care Provider [phone] Reason for Visit * Reason Onset Date Comments Medication Refill 07/08/2012 Encounter Details Date Type Department Care Team (Late st Contact Info) Description 07/08/2012 Refill Psychiatry [place] [phone] Wendy Farias MD [facility] [place] [address] Social History Tobacco Use Types Packs/Day Years [...] Psychiatry [place] [phone] Isaura García APRN [facility] [place] [address] documented as of this encounter Visit Diagnoses Not on filedocumented in this encounter Care Teams Leather Currier Relationship Specialty Start Date End Date Ayana Lai MD [address] [place] [address] PCP - General 07/18/11 03/29/13 documented as of this encounter
--- OUTSIDE RECORDS SUMMARY | 2024-10-05 10:51 | XMS_ITS | Encounter Summary ---
Author Organization [facility] [place] [address] Care Team Providers Care Diesel Engine Mechanic Apprentice Name Role Phone MiramontesMarlin alan Ashtyn CLAY Primary Care Provider [phone] Encounter Details Date Type Department Care Team (Late st Contact Info) Description 06/15/2014 External Results Psychiatry [place] [phone] Rupali Palomo MD [facility] [place] [address] Social History Tobacco Use Types Packs/Day Years [...] Visit (TeleHealth) Psychiatry [place] [phone] Isaura García APRN [facility] [place] [address] documented as of this encounter Procedures Procedure Name Priority Date/Time Associated Diagnosis Comments TSH Routine 06/12/2014 LITHIUM LEVEL Routine 06/12/2014 BASIC METABOLIC PANEL Routine 06/12/2014 documented in this encounter Results * Basic Metabolic Panel (non-fasting) (06/12/2014) Calcium 9.3 8.7 - 10.7 Glucose 91 Blood Urea Nitrogen 14 Creatinine 1 Sodium 140 137 - 147 Potassium 4.1 3.4 - 5.3 Chloride 105 99 - 108 Carbon Dioxide 28 22 - 29 Blood specimen (specimen) 06/12/2014 Rupali Palomo MD CHEMISTRY ORDERABLES * TSH (06/12/2014) Thyroid Stimulating Hormone 1.48 Comment:reference range 0.36 -3.74 uIU/mL Blood specimen (specimen) 06/12/2014 Rupali Palomo MD CHEMISTRY ORDERABLES * [place] level (06/12/2014) [place] 0.61 Comment:reference range 0.6- 1.2 mmol/L Blood specimen (specimen) 06/12/2014 Rupali Palomo MD CHEMISTRY ORDERABLES documented in this encounter Visit Diagnoses Not on filedocumented in this encounter Care Teams Diesel Engine Mechanic Apprentice Relationship Specialty Start Date End Date Marlin Miramontes APRN PCP - General 06/14/13 01/25/17 documented as of this encounter
--- OUTSIDE RECORDS SUMMARY | 2024-10-05 10:51 | XMS_ITS | Encounter Summary ---
Author Organization [facility] [place] [address] Care Team Providers Care Principal Systems Engineer Name Role Phone Ayana Lai MD Primary Care Provider [phone] Reason for Visit * Reason Onset Date Comments Medication Refill 09/10/2011 Encounter Details Date Type Department Care Team (Late st Contact Info) Description 09/10/2011 Refill Psychiatry [place] [phone] Wendy Farias MD [facility] [place] [address] Social History Tobacco Use Types Packs/Day Years [...] Visit (TeleHealth) Psychiatry [place] [phone] Isaura García APRN [facility] [place] [address] documented as of this encounter Visit Diagnoses Not on filedocumented in this encounter Care Teams Principal Systems Engineer Relationship Specialty Start Date End Date Ayana Lai MD [address] [place] [address] PCP - General 07/18/11 03/29/13 documented as of this encounter
--- OUTSIDE RECORDS SUMMARY | 2024-10-05 10:51 | XMS_ITS | Encounter Summary ---
Author Organization [facility] [place] [address] Care Team Providers Care Communications Systems Engineer Name Role Phone Marlin Miramontes APRN Primary Care Provider [phone] Reason for Visit * Reason Onset Date Comments Medication Refill 12/12/2013 Encounter Details Date Type Department Care Team (Late st Contact Info) Description 12/12/2013 Refill Psychiatry [place] [phone] Flakita Sapp MD [facility] [address] [place] [address] Bipolar I disorder, most recent episode (or current) depressed, in partial or unspecified remission (Primary Dx); Insomnia, unspecified Social History Tobacco Use Types [...] encounter Miscellaneous Notes * Telephone Encounter - Rupali Palomo MD - 12/13/2013 8:45 AM ESTFrom: Shireen Silva To: Flakita Sapp MD Sent: 12/12/2013 10:38 PM EST Subject: Medication Renewal Request Original authorizing provider: MD Shireen ARELALNO would like a refill of the following medications: zolpidem (AMBIEN) 10 mg tablet [FLAKITA SAPP MD] Preferred pharmacy: [id number] - [place], [place] - [address] [facility] Comment: documented in this encounter Plan of Treatment Upcoming Encounters Date Type Department Care Team (Late st Contact Info) Description 11/09/2024 11:30 AM EST TH Visit (TeleHealth) Psychiatry [place] [address] Isaura García APRN [facility] [address] [place] [address] documented as of this encounter Visit Diagnoses Diagnosis Bipolar I disorder, most recent episode (or current) depressed, in partial or unspecified remission- Primary Insomnia, unspecified documented in this encounter Care Teams Communications Systems Engineer Relationship Specialty Start Date End Date Marlin Miramontes APRN PCP - General 06/14/13 01/25/17 documented as of this encounter
--- OUTSIDE RECORDS SUMMARY | 2024-10-05 10:51 | XMS_ITS | Encounter Summary ---
Author Organization [facility] [place] [place] [address] Care Team Providers Care Transfer Engineer Name Role Phone Ayana Lai MD Primary Care Provider Encounter Details Date Type Department Care Team (Late st Contact Info) Description 11/16/2012 Orders Only Psychiatry [place] [phone] Wendy Farias MD [facility] [place] [address] Social History Tobacco Use Types Packs/Day Years [...] Visit (TeleHealth) Psychiatry [place] [phone] Isaura García APRN [facility] [place] [address] documented as of this encounter Visit Diagnoses Not on filedocumented in this encounter Care Teams Transfer Engineer Relationship Specialty Start Date End Date Ayana Lai MD [address] [place] [address] PCP - General 07/18/11 03/29/13 documented as of this encounter
--- OUTSIDE RECORDS SUMMARY | 2024-10-05 10:51 | XMS_ITS | Encounter Summary ---
Author Organization [facility] [place] [address] Care Team Providers Care Rate Quoting Operator Name Role Phone Marlin Miramontes APRN Primary Care Provider [phone] Reason for Visit * Reason Onset Date Comments Medication Refill 01/07/2015 Encounter Details Date Type Department Care Team (Late st Contact Info) Description 01/07/2015 Refill Psychiatry [place] [phone] Adalberto Krishnamurthy MD [facility] [place] [address] Insomnia, unspecified Social History Tobacco Use Types [...] Adalberto Krishnamurthy MD - 01/08/2015 8:49 AM ESTFrom: Shireen Silva To: Adalberto Krishnamurthy MD Sent: 01/07/2015 12:51 AM EST Subject: Medication Renewal Request Original authorizing provider: MD Shireen DE [place] would like a refill of the following medications: zolpidem (AMBIEN) 10 mg Tablet [ADALBERTO KRISHNAMURTHY MD] Preferred pharmacy: [id number] - [place], [place] - [address] [facility] Comment: documented in this encounter Plan of Treatment Upcoming Encounters Date Type Department Care Team (Late st Contact Info) Description 11/09/2024 11:30 AM EST TH Visit (TeleHealth) Psychiatry [place] [address] Isaura García APRN [facility] [place] [address] documented as of this encounter Visit Diagnoses Diagnosis Insomnia, unspecified documented in this encounter Care Teams Rate Quoting Operator Relationship Specialty Start Date End Date Marlin Miramontes APRN PCP - General 06/14/13 01/25/17 documented as of this encounter
--- OUTSIDE RECORDS SUMMARY | 2024-10-05 10:51 | XMS_ITS | Encounter Summary ---
Author Organization [facility] Address [facility] [place] [address] Care Team Providers Care Scheduler Maintenance Name Role Phone Marlin Miramontes DANNA Primary Care Provider [phone]- [phone] Reason for Visit * Reason Comments Bipolar Disorder Encounter Details Date Type Department Care Team (Late st Contact Info) Description 08/07/2014 10:10 AM EDT Office Visit Psychiatry [place] [phone] Rupali Palomo MD [facility] [place] [address] Bipolar disorder (Primary Dx) Social History Tobacco Use Types [...] Progress Notes * Zhanna Lorenzo MD - 08/14/2014 9:20 AM [...] of fluoxetine induced diana. Additional comments: none. * Rupali Palomo MD - 08/07/2014 11:12 AM EDT ESTABLISHED ADULT PATIENT OFFICE VISIT NOTE Time Spent: 30 minutes Attendee(s): Patient, this residential mortgage underwriter. This patient was seen with Dr. Zhanna Lorenzo. See her note for confirmatory and/or revisionary documentation. HISTORY Chief Complaint: Shireen Silva is a 49 y.o. woman who presents today for follow-up of her mood disorder. HPI: () Since last seen in clinic, Shireen started Fluoxetine 20 mg. Of her depression, she says, it's hard to explain, I don't feel that overwhelming despair kind of feeling. I still have motivation problems.I don't know if it makes me sleepy. She takes it in the morning and thinks it would be reasonableto try moving it to bedtime. On initiation, she first had some stomach upset but this has passed. Sh e does not endorse SI or HI. She thinks that when she was on Fluoxetine previously, she became manic because she was not on a mood stabilizer; she has not had any manic symptoms since starting this trial (together with Joanna). She recently dyed her hair dark brown and notes, I've done everythingbut blonde. She does not endorse anxiety at the moment, but mentions, I'm out of Lorazepam, I don't take it a lot but I have stressful things coming up, one son just moved, one son is looking for a job, and her is out of town. She adds, 08/10 is hard for me, my older son gets me and he'smoved out. She is willing to consider increasing her Fluoxetine dose to 30 mg but prefers to try moving the time of the dose first. She says that if it turns out to be somewhat activating, she will notice as her sleep is pretty good. Most recent labs: Component [...] 9.3 9.3 8.9 TSH 1.48 1.24 1.03 Joanna Lvl 0.61 0.4 (L) 0.41 (L) Quality: [...] needed (panic attacks). 7 tablet 0 ??? FLUoxetine (PROZAC) 20 mg [...] May 2006 andhad seen Karen Mallory in [facility] (therapist) for years. Currently under the care of Lottie Carranza in [place], [place] (for the past 1 year). #Prior [...] but reported to have caused a rash), Joanna (Eskalith, current medication), Bupropion XL (current medication), Eszopiclone (ineffective for sleep), Oxazepam (ineffective for anxiety), Clonazepam, Zolpidem (current medication). Family Psychiatric and Medical History: Brother with alcohol use disorder, possible Bipolar disorder. Paternal grandmother with unknown psychiatric diagnosis but history of psychiatric hospitalization. Paternal uncle and cousins with unknown psychiatric diagnoses but multiple suicide attempts. Social History: Born in [facility]; has 1 older brother and 2 older sisters. Has a bachelor's degree in Psychology. Had first manic episode per report in college, lasting 2-3 months. 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 Currently lives in [place], [place] with her . Has three sons (aged 13, 20, and 22) all living at home; youngest has been recipient of psychiatric care at [facility] for years for behavioral disturbance. was deployed [...] nervous grin. Neatly dressed for the weather. Some PMA noted, quite fidgety. Cooperative. ? [...] recent or remote recall. ? Language: Normal Nigerien. ? Fund of Knowledge: Seems appropriate for [...] she notices that her sleep is disturbed (whereascurrently it is deep and restful), to let this residential mortgage underwriter know and move the dose back to the morning. If she continues to have problems with motivation, we will consider increasing her Fluoxetine dose to30 mg daily. She is amenable to this [...] Visit (TeleHealth) Psychiatry [place] [address] Isaura García APRN [facility] [place] [address] documented as of this encounter Visit Diagnoses Diagnosis Bipolar disorder- Primary Bipolar disorder, unspecified documented in this encounter Care Teams Scheduler Maintenance Relationship Specialty Start Date End Date Marlin Miramontes APRN PCP - General 06/14/13 01/25/17 documented as of this encounter
--- OUTSIDE RECORDS SUMMARY | 2024-10-05 10:51 | XMS_ITS | Encounter Summary ---
Author Organization [facility] Address [facility] [place] [address] Care Team Providers Care Nursing Service Director Name Role Phone Marlin Miramontes PROTECTION SPECIALIST Primary Care Provider +1- [phone] Reason for Visit * Reason Comments Depression Anxiety Encounter Details Date Type Department Care Team (Late st Contact Info) Description 06/19/2014 10:10 AM EDT Office Visit Psychiatry [place] [phone] Rupali Palomo MD [facility] [place] [address] Bipolar disorder (Primary Dx) Social History Tobacco [...] documented in this encounter Progress Notes * Marleen Michelle MD - 06/26/2014 10:50 AM EDT Attending Attestation I saw and evaluated Ms. Silva with Dr. Palomo. I reviewed Ms. Silva's history during the visit. My exam confirms the resident's findings with the following exceptions/clarifications: Sx of worsening depression, no signs of diana/hypomania. After reviewing R/B, pt consents to trial of fluoxetine as this has been helpful in the past, [...] as written. Marleen Michelle MD Attending psychiatrist * Rupali Palomo MD - 06/19/2014 10:51 AM EDT ESTABLISHED ADULT PATIENT OFFICE VISIT NOTE Time Spent: 30 minutes Attendee(s): Patient, this ghost writer. This patient was seen with Dr. Marleen Michelle. See her note for confirmatory and/or revisionary documentation. HISTORY Chief Complaint: Shireen Silva is a 49 y.o. woman who presents today for follow-up of her mood disorder. HPI: () Since last seen by this ghost writer, Shireen reports that she has been writing things out that have been bothering her and presents this ghost writer with a list of her concerns which we then reviewed. First, she notes that she got into a confrontational incident, shortly after our last appointment, where someone said something to me and I took it the wrng way and I got very defensive, then I apologized andfelt really bad afterwards. She says she'd felt like I wanted to cut but I didn't. Second, she described what she feels is some depersonalization, which she feels has been going on for a while.Bee, I didn't really know what it was, but I started reading and it fit me... I know I do it sometimes. She reports that it feels like I'm outside and detached but like I can see things going on.... It usually happens when I'm in social situations when I'm overwhelmed.The last episode of depersonalization that she recalls was when my parents came to visit, and everyone was talking. Third, s he recalls having heard music and her name called, in the past - It didn't seem like hallucinations, those seem bigger... It's mostly music or thinking I hear the phone and no one hears it, or I didn't know I had the radio on. This ghost writer asks if she ever recognized the music or at least the genre and Shireen replied, I couldn't tell you what the music was. She also notes that when she takes Zolp idem, she usually tries to take it and go directly to bed, but sometimes I get distracted and I'llfeel like someone is talking with me. None of these auditory experiences have been distressing. In terms of her symptoms, Shireen notes that her depression is not any better. She does not endorse SIper se, but says, sometimes I feel like no one no one would care if I was gone. She does not report any plans for suicide and no intent to act. We discussed medication changes and reviewed her pastmedications. She has been on 450 mg of Bupropion before, and notes that looking back at my journali ng, it looks like the same thing that she is feeling now was happening on that increased dose. Shehas also been at higher doses of [place] in the past, which she says affected me cognitively a lotmore and never helped with the depression. She states very firmly that she won't take Quetiapine,or anything that is known to cause weight gain. She recalls that Risperidone caused me a rash. This ghost writer mentioned the possibility of trying Lurasidone, as Shireen had expressed interest in the past, although with the same reservations as before - that we were reluctant to start an anti-psychoticif we could manage her symptoms with medications [...] she only sleeps 2-3 hours and bounces off the damon but was a little vague about how long these episodes would last. She recalls that she had no benefit from Citalopram, that when she missed doses of Venlafaxine, she felt crazy, but when she was on Fluoxetine, she feels it was so effective that it made me manic. She is willing to test a low dose (20 mg) of Fluoxetine to see if we can improve her mood without pushing her into diana now that she is also on a mood stabilizer ([place]). Most recent labs: Component Latest Ref Rng 06/12/2014 04/06/2014 08/17/2013 Sodium 137 - 147 140 144 143 Potassium 3.4 - 5.3 4.1 4.3 4.3 Chloride 99 - 108 105 107 107 CO2 22 - 29 28 29 27 BUN 14 12 15 Creatinine 1 1 1 Glucose Lvl 91 88 79 Calcium 8.7 - 10.7 9.3 9.3 8.9 TSH 1.48 1.24 1.03 [place] Lvl 0.61 0.4 (L) 0.41 (L) Quality: [...] be changed. Does not recall noticing a differenceon a higher dose of Bupropion. No change [...] under the care of Lottie Carranza in [place], [place] (for the past 1 year). #Prior [...] but reported to have caused a rash), [place] (Eskalith, current medication), Bupropion XL (current medication), Eszopiclone (ineffective for sleep), Oxazepam (ineffective for anxiety), Clonazepam, Zolpidem (current medication). Family Psychiatric and Medical History: Brother with alcohol use disorder, possible Bipolar disorder. Paternal grandmother with unknown psychiatric diagnosis but history of psychiatric hospitalization. Paternal uncle and cousins with unknown psychiatric diagnoses but multiple suicide attempts. Social History: Born in [facility]; has 1 older brother and 2 older sisters. Has a bachelor's degree in Psychology. Had first manic episode per report in college, lasting 2-3 months. 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 Currently lives in [place], [place] with her . Has three sons (aged 13, 20, and 22) all living at home; youngest has been recipient of psychiatric care at [facility] for years for behavioral disturbance. [...] recent or remote recall. ? Language: Normal Thai. ? Fund of Knowledge: Seems appropriate for [...] hypo/manic, and not psychotic although she now reportssome episodes of auditory perceptual disturbances and dissociation. Seems mostly dysthymic, with maladaptive personality structure and difficulty accessing coping skills. Nevertheless, as medicationsseem to be helping with mood dysregulation, will [...] Visit (TeleHealth) Psychiatry [place] [address] Isaura García APRN [facility] [place] [address] documented as of this encounter Visit Diagnoses Diagnosis Bipolar disorder- Primary Bipolar disorder, unspecified documented in this encounter Care Teams Nursing Service Director Relationship Specialty Start Date End Date Marlin Miramontes APRN PCP - General 06/14/13 01/25/17 documented as of this encounter
--- OUTSIDE RECORDS SUMMARY | 2024-10-05 10:51 | XMS_ITS | Encounter Summary ---
Author Organization [facility] Address [facility] [place] [address] Care Team Providers Care Oil Distributor Name Role Phone Ayana Lai MD Primary Care Provider [phone] Reason for Visit * Reason Comments Depression Encounter Details Date Type Department Care Team (Late st Contact Info) Description 09/14/2012 2:10 PM EDT Office Visit Psychiatry [place] [phone] Wendy Farias MD [facility] [place] [address] Bipolar disorder with current episode depressed (Primary Dx) Social History Tobacco Use Types [...] Progress Notes * Don Wright MD - 09/15/2012 4:43 PM [...] may well be mood relieving. Additional comments * Wendy Farias MD - 09/14/2012 9:16 PM EDT MED MANAGEMENT Med Management (CPT [id number] 2009) Location: Office Time Spent: 30 minutes [...] appointments but has not been able to seeher therapist due to schedule conflicts. ?? No [...] presentation notable for depressed mood with no safetyconcerns that is unchanged from prior visits. Do continue to feel that patient would benefit more from therapeutic interventions rather than medication changes at this time. Patient encouraged to continue individual therapy and to start couples therapy. PLAN: 1. Continue current medications. 2. Continue therapy. 3. Contact info for couples therapist provided. Patient to speak with her therapist regarding otherrecommendations. 4. RTC 3 months. Patient Instruction/Education provided: Patient provided written instructions regarding plan. Patient understands the plan? Yes documented in this encounter Plan of Treatment Upcoming Encounters Date Type Department Care Team (Late st Contact Info) Description 11/09/2024 11:30 AM EST TH Visit (TeleHealth) Psychiatry [place] [address] Isaura García APRN [facility] [place] [address] documented as of this encounter Visit Diagnoses Diagnosis Bipolar disorder with current episode depressed- Primary Bipolar I disorder, most recent episode (or current) depressed, unspecified documented in this encounter Care Teams Oil Distributor Relationship Specialty Start Date End Date Ayana Lai MD [address] [place] [address] PCP - General 07/18/11 03/29/13 documented as of this encounter
--- OUTSIDE RECORDS SUMMARY | 2024-10-05 10:51 | XMS_ITS | Encounter Summary ---
Author Organization [facility] [place] [address] Care Team Providers Care Flavor Room Worker Name Role Phone Virginie Gudino APRN Primary Care Provider [phone] Reason for Visit * Reason Comments Medication Refill Encounter Details Date Type Department Care Team (Late st Contact Info) Description 03/28/2014 Refill Psychiatry [place] [phone] Wendy Farias MD [facility] [place] [address] Social History Tobacco Use Types Packs/Day Years [...] Visit (TeleHealth) Psychiatry [place] [phone] Isaura García APRN [facility] [place] [address] documented as of this encounter Visit Diagnoses Not on filedocumented in this encounter Care Teams Flavor Room Worker Relationship Specialty Start Date End Date Virginie Gudino, BOOK TRIMMER [address] [facility] [address] PCP - General Family Medicine 06/16/18 07/31/24 documented as of this encounter
--- OUTSIDE RECORDS SUMMARY | 2024-10-05 10:51 | XMS_ITS | Encounter Summary ---
Author Organization [facility] [place] [id number] Care Team Providers Care Script Supervisor Name Role Phone Marlin Miramontes APRN Primary Care Provider [phone] Reason for Visit * Reason Onset Date Comments Medication Refill 04/25/2015 Encounter Details Date Type Department Care Team (Late st Contact Info) Description 04/25/2015 Refill Psychiatry [place] [phone] Adalberto Krishnamurthy MD [facility] [place] [address] Bipolar disorder Social History Tobacco Use Types [...] Adalberto Krishnamurthy MD - 04/26/2015 8:16 AM EDTFrom: Shireen Silva To: Adalberto Krishnamurthy MD Sent: 04/25/2015 11:29 PM EDT Subject: Medication Renewal Request Original authorizing provider: MD Shireen DE LOS SANTOS would like a refill of the following medications: buPROPion (WELLBUTRIN XL) 300 mg Tablet Sustained Release 24 hr [ADALBERTO KRISHNAMURTHY MD] Preferred pharmacy: [id number] - [facility] [place], [place] - [address] [facility] Comment: documented in this encounter Plan of Treatment Upcoming Encounters Date Type Department Care Team (Late st Contact Info) Description 11/09/2024 11:30 AM EST TH Visit (TeleHealth) Psychiatry [place] [address] Isaura García APRN [facility] [address] [place] [address] documented as of this encounter Visit Diagnoses Diagnosis Bipolar disorder Bipolar disorder, unspecified documented in this encounter Care Teams Script Supervisor Relationship Specialty Start Date End Date Marlni Miramontes APRN PCP - General 06/14/13 01/25/17 documented as of this encounter
--- OUTSIDE RECORDS SUMMARY | 2024-10-05 10:51 | XMS_ITS | Encounter Summary ---
Author Organization [facility] [place] [address] Care Team Providers Care Paper Products Machine Operator Name Role Phone Marlin Miramontes APRN Primary Care Provider [phone] Reason for Visit * Reason Onset Date Comments Medication Refill 09/09/2013 Encounter Details Date Type Department Care Team (Late st Contact Info) Description 09/09/2013 Refill Psychiatry [place] [phone] Wendy Farias MD [facility] [place] [address] Social History Tobacco Use Types Packs/Day Years [...] encounter Miscellaneous Notes * Telephone Encounter - Noris Claros MD - 09/14/2013 12:39 PM EDT Already refilled by Dr. Sapp. * Telephone Encounter - Noris Claros MD - 09/13/2013 4:39 PM EDTFrom: Shireen Silva To: Wendy Farias MD Sent: 09/09/2013 7:31 AM EDT Subject: Medication Renewal Request Original authorizing provider: WENDY FARIAS MD Shireen Silva would like a refill of the following medications: zolpidem (AMBIEN) 10 mg tablet [WENDY FARIAS MD] Preferred pharmacy: [id number] - [address] Comment: documented in this encounter Plan of Treatment Upcoming Encounters Date Type Department Care Team (Late st Contact Info) Description 11/09/2024 11:30 AM EST TH Visit (TeleHealth) Psychiatry [place] [address] Isaura García APRN [facility] [place] [address] documented as of this encounter Visit Diagnoses Not on filedocumented in this encounter Care Teams Paper Products Machine Operator Relationship Specialty Start Date End Date Marlin Miramontes APRN PCP - General 06/14/13 01/25/17 documented as of this encounter
--- OUTSIDE RECORDS SUMMARY | 2024-10-05 10:51 | XMS_ITS | Encounter Summary ---
Author Organization [facility] [place] [address] Care Team Providers Care Thermostat Repairer Name Role Phone MiramontesMarlin alan Ashtyn CLAY Primary Care Provider [phone] Encounter Details Date Type Department Care Team (Late st Contact Info) Description 04/26/2015 External Results Psychiatry [place] [phone] Rupali Palomo MD [facility] [place] [address] Social History Tobacco Use Types Packs/Day Years [...] Visit (TeleHealth) Psychiatry [place] [phone] Isaura García APRN [facility] [place] [address] documented as of this encounter Procedures Procedure Name Priority Date/Time Associated Diagnosis Comments TSH Routine 04/17/2015 LITHIUM LEVEL Routine 04/17/2015 BASIC METABOLIC PANEL Routine 04/17/2015 documented in this encounter Results * (ABNORMAL) Golinda level (04/17/2015) Golinda 0.58(L) Blood specimen (specimen) 04/17/2015 Rupali Palomo MD CHEMISTRY ORDERABLES * TSH (04/17/2015) Thyroid Stimulating Hormone 1.01 Blood specimen (specimen) 04/17/2015 Rupali Palomo MD CHEMISTRY ORDERABLES * (ABNORMAL) Basic Metabolic Panel (non-fasting) (04/17/2015) Calcium 8.6(A) 8.7 - 10.7 Comment:read as normal at [facility] Blood Urea Nitrogen 11 Creatinine 0.9 Sodium 144 137 - 147 Potassium 4.3 3.4 - 5.3 Chloride 107 99 - 108 Carbon Dioxide 27 22 - 29 Glucose 77 Blood specimen (specimen) 04/17/2015 Rupali Palomo MD CHEMISTRY ORDERABLES documented in this encounter Visit Diagnoses Not on filedocumented in this encounter Care Teams Thermostat Repairer Relationship Specialty Start Date End Date Marlin Miramontes APRN PCP - General 06/14/13 01/25/17 documented as of this encounter
--- OUTSIDE RECORDS SUMMARY | 2024-10-05 10:51 | XMS_ITS | Encounter Summary ---
Author Organization [facility] [place] [address] Care Team Providers Care Multi Sensor Operator Name Role Phone Marlin Miramontes APRN Primary Care Provider [phone]- [phone] Encounter Details Date Type Department Care Team (Late st Contact Info) Description 06/14/2013 1:30 PM EDT Office [place] [address] Endy Banks MD [address] [place] [id number] Thyroid cyst (Primary Dx) Discharge Disposition: Home Social History Tobacco Use [...] as of this encounter Progress Notes * Endy Banks MD - 06/14/2013 1:28 PM [...] the thyroid gland were obtained using a SonFilterSureaxx and an HFL38/13-6 broadband linear array transducer. [...] age, so that perhaps 50% of individuals older than 60 years of age have nodules. Many of these nodules will be well under 1cm in size. The incidence of thyroid cancer is low, but rising. About 44,700 individuals will be found to have thyroid ca ncer in 2010. The prevalence of thyroid cancer is low compared with the prevalence of thyroid nodule. In 2007, there were about 434,000 individuals in the [place] with a history of thyroid cancer. There have been a number of studies that have estimated risk of malignancy in thyroid nodule. The estimated risk varies with size and other characteristics of nodules selected for biopsy, the technique used for the biopsy, the institution and its referral patterns, and the characteristics of the local population. Most studies have estimated malignancy risk in nodules that are palpable or > 1cmon U/S to be in the range of 3-15%. At [facility], the nodules selected for biopsy are histologically positive in about 7% of cases. In general, options for further evaluation include: - Follow with serial U/S - Fine needle aspiration biopsy - Thyroidectomy At [facility], our criteria for FNA biopsy includes: - [...] Psychiatry [place] [address] Isaura García APRN [facility] [place] [address] documented as of this encounter Visit Diagnoses Diagnosis Thyroid cyst- Primary Cyst of thyroid documented in this encounter Care Teams Multi Sensor Operator Relationship Specialty Start Date End Date Marlin Miramontes APRN PCP - General 06/14/13 01/25/17 documented as of this encounter
--- OUTSIDE RECORDS SUMMARY | 2024-10-05 10:51 | XMS_ITS | Encounter Summary ---
Author Organization Formerly [facility] [place] [address] Care Team Providers Care Rn Family Name Role Phone Ayana Lai MD Primary Care Provider [phone] Encounter Details Date Type Department Care Team (Late st Contact Info) Description 10/02/2011 [place] [phone] Wendy Farias MD [facility] [place] [address] Social History Tobacco Use Types Packs/Day Years [...] Visit (TeleHealth) Psychiatry [place] [phone] Isaura García APRN [facility] [place] [address] documented as of this encounter Visit Diagnoses Not on filedocumented in this encounter Care Teams Rn Family Relationship Specialty Start Date End Date Ayana Lai MD [address] [place] [address] PCP - General 07/18/11 03/29/13 documented as of this encounter
--- OUTSIDE RECORDS SUMMARY | 2024-10-05 10:51 | XMS_ITS | Encounter Summary ---
Author Organization [facility] [place] [address] Care Team Providers Care Genomics Scientist Name Role Phone MiramontesMarlin alan Ashtyn CLAY Primary Care Provider [phone] Encounter Details Date Type Department Care Team (Late st Contact Info) Description 04/11/2014 External Results Psychiatry [place] [phone] Rupali Palomo MD [facility] [place] [address] Social History Tobacco Use Types Packs/Day Years [...] Visit (TeleHealth) Psychiatry [place] [phone] Isaura García APRN [facility] [place] [address] documented as of this encounter Procedures Procedure Name Priority Date/Time Associated Diagnosis Comments EXTERNAL LAB CBC CMP THYROID RESULTS PANEL Routine 04/06/2014 LITHIUM LEVEL Routine 04/06/2014 documented in this encounter Results * (ABNORMAL) CBC / CMP / Thyroid External Results (04/06/2014) White Blood Cell 6.35 Hemoglobin 12.0 12.0 - 16.0 Hematocrit 38.9 36.0 - 46.0 Mean Cell Volume 85.3 82.0 - 108.0 Platelet 333 Sodium 144 137 - 147 Potassium 4.3 3.4 - 5.3 Chloride 107 99 - 108 Carbon Dioxide 29 22 - 29 Blood Urea Nitrogen 12 Creatinine 1 Est Glomerular Filtration Rate 59.69 Glucose 88 Calcium 9.3 8.7 - 10.7 Magnesium Phosphorus 2.5 - 4.9 Protein, Total 6.2(L) 6.4 - 8.2 Albumin 3.6 3.5 - 5.0 Bilirubin, Total 0.4 0.1 - 1.4 Bilirubin, Direct 0.1 0.01 - 0.4 Alkaline Phosphatase 41(L) Comment:46-116 U/L Aspartate Aminotransferase 14(L) 13 - 35 Comment:15-37 U/L Alanine Aminotransferase 29 7 - 35 Gamma Glutamyl Transferase Lactate Dehydrogenase 80 - 250 Amylase Lipase Thyroid Stimulating Hormone 1.24 Comment:0.36 - 3.74 uIU/mL T4 Total 04/06/2014 Rupali Palomo MD EXTERNAL LAB ORDERAB LES * (ABNORMAL) Storrs level (04/06/2014) [place]rs 0.4(L) Comment:0.6-1.2 mmol/L [russ ected at 10:53 AM][ Blood specimen (specimen) 04/06/2014 Rupali Palomo MD CHEMISTRY ORDERABLES documented in this encounter Visit Diagnoses Not on filedocumented in this encounter Care Teams Genomics Scientist Relationship Specialty Start Date End Date Marlin Miramontes APRN PCP - General 06/14/13 01/25/17 documented as of this encounter
--- OUTSIDE RECORDS SUMMARY | 2024-10-05 10:51 | XMS_ITS | Encounter Summary ---
Author Organization [facility] Address [place] [id number] Care Team Providers Care Productivity Engineer Name Role Phone Marlin Miramontes APRN Primary Care Provider [phone] Reason for Referral * Psychiatric (Routine) - Closed Specialty Diagnoses / Procedures Referred By Contac t Referred To Contact Psychiatry Diagnoses Bipolar disorder, most recent episode depressed, remission status unspecified Rupali Palomo MD [facility] [place] [address] [facility] Psych[facility] [address] [place] [address] Referral ID Status Reason Start Date Expiration Date V isits Requested Visits Authorized [id number] Closed Assume Subset of Care 04/30/2015 04/29/2016 3 3 Encounter Details Date Type Department Care Team (Late st Contact Info) Description 04/30/2015 9:10 AM EDT Office Visit Psychiatry [place] [address] Rupali Palomo MD [facility] [place] [address] Bipolar disorder, most recent episode depressed, remission status unspecified (Primary Dx) Social History [...] EDT documented in this encounter Patient Instructions * Patient Instructions* Rupali Palomo MD - 04/30/2015 10:22 AM EDT Fluoxetine taper: - Decrease to 20 mg for a few days to 1 week. - Then to 10 mg for a few days to 1 week and STOP. documented in this encounter Progress Notes * Zhanna Lorenzo MD - 05/16/2015 12:47 PM [...] her symptoms and recent stressors. Taken together, weconcluded that it was likely the higher dose [...] 600 mg twice daily. Additional comments: none * Rupali Palomo MD - 04/30/2015 9:59 AM EDT ESTABLISHED ADULT PATIENT OFFICE VISIT NOTE Time Spent: 30 minutes Attendee(s): Patient, this commercial lines underwriter. This patient was seen with Dr. Zhanna Lorenzo. See her note for confirmatory and/or revisionary documentation. HISTORY Chief Complaint: Shireen Silva is a 50 y.o. woman who presents today for follow-up of her mood disorder. HPI: () Since last seen in clinic, Shireen recalled that we'd upped the Fluoxetine 30 mg and I kind of want to stop. When asked why, she explained, I'm getting [...] had a sudden financial windfall and we were struggling. This commercial lines underwriter asked if she'd felt manic and Shireen [...] the thing that confuses me, the stress I've been under, and I don't know if it's the medicine and the stress and sometimes I feel really depressed. In terms of other psychiatric symptoms, she observed, I kind of have had a few instances of wanting to cut but I haven't, and she'd had no thoughts of harming others. This commercial lines underwriter asked about hallucinations and Shireen mused that she sometimes hears music still, but no voices and no visual hallucinations. She said, my anxiety has been a little more and endorsed having had a panic attack on waking up a few days ago. Otherwise she reported that she slept pretty well and stilltakes the Zolpidem as needed. Her appetite has been fine. This commercial lines underwriter asked if Shireen felt it would be helpful to return to the lower dose of Fluoxetine, giventhat she'd had this increased energy and goal-directed thinking. She replied, I want to stop, it didn't do much until we increased it. We reviewed past medications that Shireen had tried for depression and she recalled having been on Venlafaxine, Citalopram, and Lamotrigine, but did not recall what happened with the last of these. On higher doses of Marquette, she'd felt slower, and she was not [...] as those were new to her. This commercial lines underwriter asked if Shireen was seeing a therapist and she replied that she wasn't, adding I know it's something I need to address, therapy, but [place] She was amenable to having this commercial lines underwriter place a referral for therapy here. Most recent labs: Component Latest Ref Rng 04/17/2015 06/12/2014 Calcium 8.7 - 10.7 8.6 (A) 9.3 Glucose Lvl 77 91 BUN 11 14 Creatinine 0.9 1 Sodium 137 - 147 144 140 Potassium 3.4 - 5.3 4.3 4.1 Chloride 99 - 108 107 105 CO2 22 - 29 27 28 Marquette Lvl 0.58 (L) 0.61 TSH 1.01 1.48 [...] increased Fluoxetine but also has noticed more creativityand greater desire to engage in writing, which [...] 3 ??? UNABLE TO FIND Med Name: Content[employer]st Body protein shakes. Per website, each contains [...] medication allergies; having difficulty with seasonal allergies. PFS: () Past Medical/Psychiatric History: #Prior diagnoses - Bipolar 1 disorder (mixed, manic, depressed); says diana consisted of increased spending and would last a few days. Generalized anxiety disorder. Borderline traits. #Prior Hospitalizations - None endorsed. [facility] andhad seen Karen Mallory in [facility] (therapist) for years. Currently under the care of Lottie Carranza in [place], [place] (for the past 1 year). Update [...] but reported to have caused a rash), Marquette (Eskalith, current medication), Bupropion XL (current medication), Eszopiclone (ineffective for sleep), Oxazepam (ineffective for anxiety), Clonazepam, Zolpidem (current medication). Update (10/02) - Takes ReturnHauler Beach Body shakes and finds them helpful. Based on the contents (per the Native[employer] website and see Medication List), some drug-drug interactions need to be monitored. - Ashwagandha can be sedating when used with PAIRER depressants (i.e. Clonazepam), and can increase thyroid hormone levels. - Astragalus can cause increases in serum Marquette level. - Reishi mushrooms can slow clotting and cause hypotension. - Schisandra can worsen GERD symptoms and interfere with metabolism via the 2C9 and 3A4 Ddu930 enzymes. Family Psychiatric and Medical History: Brother with alcohol use disorder, possible Bipolar disorder. Paternal grandmother with unknown psychiatric diagnosis but history of psychiatric hospitalization. Paternal uncle and cousins with unknown psychiatric diagnoses but multiple suicide attempts. Social History: Born in [facility]; has 1 older brother and 2 older sisters. Has a bachelor's degree in Psychology. Had first manic episode per report in college, lasting 2-3 months. 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 Currently lives in [place], [place] with her . Has three sons (aged 13, 20, and 22) all living at home; youngest has been recipient of psychiatric care at [facility] for years for behavioral disturbance. 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 Springwas stressful as was at [facility] following a heart attack but things have improved recently as they received a financial windfall. EXAM [05/08/14 bullets (incl VS)] Constitutional System ? Vital Signs: Blood pressure 123/59, pulse 58, height 167.6 cm (5' 6), weight 65.59 kg (144 lb 9.6 oz). Musculoskeletal System ? Muscle Strength/Tone (note [...] recent or remote recall. ? Language: Normal Upper Sorbian. No word-finding difficulties. ? Fund of Knowledge: Seems appropriate for age and experience. Psychotherapeutic Interventions and Response: Active listening, with positive response. MEDICAL DECISION MAKING ASSESSMENT: Shireen Silva is a 50 y.o. woman with a history of the diagnosis of Bipolar 1 disorder, most recent episode depressed and MALVIN. Since we increased her Fluoxetine to 30 mg, Shireen endorsed improved energy and greater creativity, but says her moods are all over the place and she continuesto have intermittent dark thoughts with urges to cut, but no active suicidal or homicidal thoughts and no self-injury. Her anxiety is high and she has occasional panic attacks. She remains somewhatdiagnostically murky but given long-term Bipolar diagnosis, increased [...] as more clearly hypo/manic or mixed, we discuss ed other options for managing depression and for mood stabilization, including returning to Lamotrigine or trying Carbamazepine or Topiramate. Shireen was willing to consider these if necessary but preferred not to start anything else now. We also discussed a potential role for CBT in helping her to manage her depression, anxiety, and suicidal thoughts and Shireen agreed to a referral to a therapist her e. Since this was our last visit together, [...] days to 1 week, then to 10 mg for few days to 1 week, then STOP). - If depression worsens or she develops mixed/manic symptoms, consider retrial of Lamotrigine or new trial of Carbamazepine. We reviewed the risks of blood dyscrasias and liver function abnormalitieswith the latter medication. Topiramate was also discussed for mood stabilization (and lack of associated weight gain) and we reviewed importance of slow up-titration to avoid mental fogginess. Labs ordered: None today. Referrals: CBT for skills with anxiety and depression. Patient Instruction/Education provided: Patient provided verbal instructions regarding plan of care. Patient understands the plan? Yes Rupali Palomo MD Pager [phone] documented in this encounter Plan of Treatment Upcoming Encounters Date Type Department Care Team (Late st Contact Info) Description 11/09/2024 11:30 AM EST TH Visit (TeleHealth) Psychiatry [place] [address] Isaura García APRN [facility] [place] [address] Scheduled Referrals Name Type Priority Associated Diagnoses Orde r Schedule Referral to Psychiatry Outpatient Referral Routine Bipolar disorder, most recent episode depressed, remission status unspecified Ordered: 04/30/2015 documented as of this encounter Visit Diagnoses Diagnosis Bipolar disorder, most recent episode depressed, remission status unspecified- Primary documented in this encounter Care Teams Productivity Engineer Relationship Specialty Start Date End Date Marlin Miramontes APRN PCP - General 06/14/13 01/25/17 documented as of this encounter
--- OUTSIDE RECORDS SUMMARY | 2024-10-05 10:51 | XMS_ITS | Encounter Summary ---
Author Organization [facility] [place] [address] Care Team Providers Care Snap Attacher Name Role Phone Ayana Lai MD Primary Care Provider [phone] Reason for Visit * Reason Onset Date Comments Medication Refill 11/16/2012 Encounter Details Date Type Department Care Team (Late st Contact Info) Description 11/16/2012 Refill Psychiatry [place] [phone] Wendy Farias MD [facility] [address] [place] [address] Social History Tobacco Use Types Packs/Day Years [...] Visit (TeleHealth) Psychiatry [place] [phone] Isaura García APRN [facility] [address] [place] [address] documented as of this encounter Visit Diagnoses Not on filedocumented in this encounter Care Teams Snap Attacher Relationship Specialty Start Date End Date Ayana Lai MD [address] [place] [address] PCP - General 07/18/11 03/29/13 documented as of this encounter
--- OUTSIDE RECORDS SUMMARY | 2024-10-05 10:51 | XMS_ITS | Encounter Summary ---
Author Organization [facility] [place] [address] Care Team Providers Care Latent Fingerprint Examiner Name Role Phone Marlin Miramontes APRN Primary Care Provider [phone] Reason for Visit * Reason Onset Date Comments Medication Refill 09/22/2014 Encounter Details Date Type Department Care Team (Late st Contact Info) Description 09/22/2014 Refill Psychiatry [place] [phone] Adalberto Krishnamurthy MD [facility] [place] [address] Bipolar disorder (Primary Dx) Social History Tobacco [...] Adalberto Krishnamurthy MD - 09/22/2014 1:59 PM EDTFrom: Shireen Silva To: Adalberto Krishnamurthy MD Sent: 09/22/2014 1:01 PM EDT Subject: Medication Renewal Request Original authorizing provider: MD Shireen DE LOS SANTOS would like a refill of the following medications: buPROPion (WELLBUTRIN XL) 300 mg 24 hr tablet [ADALBERTO KRISHNAMURTHY MD] Preferred pharmacy: [id number] - [place], [place] - [address] [facility] Comment: documented in this encounter Plan of Treatment Upcoming Encounters Date Type Department Care Team (Late st Contact Info) Description 11/09/2024 11:30 AM EST TH Visit (TeleHealth) Psychiatry [place] [address] Isaura García APRN [facility] [place] [address] documented as of this encounter Visit Diagnoses Diagnosis Bipolar disorder- Primary Bipolar disorder, unspecified documented in this encounter Care Teams Latent Fingerprint Examiner Relationship Specialty Start Date End Date Marlin Miramontes APRN PCP - General 06/14/13 01/25/17 documented as of this encounter
--- OUTSIDE RECORDS SUMMARY | 2024-10-05 10:51 | XMS_ITS | Encounter Summary ---
Author Organization [facility] Address [facility] [place] [address] Care Team Providers Care Take Down Inspector Name Role Phone Ayana Lai MD Primary Care Provider [phone] Reason for Visit * Reason Comments Bipolar Disorder Encounter Details Date Type Department Care Team (Late st Contact Info) Description 07/16/2011 12:40 PM EDT Office Visit Psychiatry [place] [phone] Wendy Farias MD [facility] [place] [address] Bipolar affective disorder (Primary Dx) Social History Tobacco Use [...] as of this encounter Progress Notes * Amari Bob MD - 07/22/2011 5:52 PM [...] and I agree with them as documented. * Wendy Farias MD - 07/17/2011 5:54 PM EDT [...] for BPaD who presents for medication management. I am assuming the care of this patient from Dr. Morocho. Briefly, Ms. Silva recounts two manic episodes, once in college that lasted 2-3 months, and in 2004 that lasted 1 month, that were followed by short periods of depression. Patient did not require hospitalization during her manic episodes. She describes decreased need for sleep, increased activity, and reckless behavior such as excessive spending while manic. Patient reports that she has been fairly stable on lithium (started 5-6 years ago) and wellbutrin (started 3 years ago). Today, Ms. Silva expressed worry secondary to financial and family stressors. She specifically described getting overwhelmed very easily from these stressors and feeling that she is unsupportedby her family. She denies any neurovegetative symptoms of depression but did report that she superficially cut herself one month ago and had thoughts recently of I wonder what they would do without me. She denied any active SI or plan. Patient [...] rash), Klonopin ?? Therapist: Harleen Zuleta in [facility] every three weeks Past Substance Abuse History: None Past Medical History: Bipolar disorder Benign thyroid cyst Current Medications: Outpatient prescriptions marked as taking for the 07/16/11 encounter (Office Visit) with WENDY FARIAS Medication Sig Dispense Refill ??? buPROPion (WELLBUTRIN [...] history, other relevant social information): Born in [place], [place] and has one older brother and two older sisters. Earned a degree in psychology and had been employed in [employer] till five years ago. Currently, lives in [place], [place] with her and three sons (ages 11, 18, and 19). [facility] youngest [facility]. No history of abuse or [...] Appropriate to level of education ASSESSMENT: Ms. [place] N[place]c is a 46 y/o F with PPHx significant for bipolar disorder who presents formedication management with moderate depressive symptoms in the setting of multiple psychosocial stressors. Do feel that patient would benefit briefly with more intensive individual psychotherapy, specifically supportive therapy and CBT. Will not adjust medications at this time but will follow-up with routine labs while on lithium. DIAGNOSIS: [place] I: Bipolar, Depressed, Moderate [place] II: Deferred [place] III: Benign thyroid cyst [place] IV: Problems with primary support group and Economic problems [place] V: Current GAF: 51-60 moderate symptoms Highest GAF (past year): Unknown TREATMENT GOALS and PLAN: ?? Continue current medications. Will call [facility] in [place], [place] regarding prescription that ends in two weeks. ?? Follow-up Belpre level, thyroid panel, and CMP ordered for Thursday07/18/11. ?? Patient encouraged to see therapist every two weeks for CBT. documented in this encounter Plan of Treatment Upcoming Encounters Date Type Department Care Team (Late st Contact Info) Description 11/09/2024 11:30 AM EST TH Visit (TeleHealth) Psychiatry [place] [phone] Isaura García APRN [facility] [place] [address] documented as of this encounter Results * Belpre level (07/18/2011 9:45 AM EDT) Belpre 0.60 mmol/L [facility] Comment: Therapeutic level for bipolar depression: 0.60-1.20 mmol/L Action Level: ?? Acute toxicity: ?>4.00 mmol/L ?? Chronic toxicity: ??>1.50 mmol/L Values greater than or equal to the action level necessitate clinical intervention. ??Values less than this level may necessitate intervention based on clinical condition of the patient. Ref: ??Gerald walton Toxicologic Emergencies 6th ed 1997; p. 952 Blood specimen (specimen) 07/18/2011 9:45 AM EDT [...] MD CHEMISTRY ORDERABLE S Performing Organization Address [facility] de Phone Number [facility] * T3 (07/18/2011 9:45 AM EDT) Pathologist [facility] T3 Total 82 75 - 170 ng/dL [facility] Blood specimen (specimen) 07/18/2011 9:45 AM EDT 07/18/2011 9:54 AM EDT Amari Bob MD CHEMISTRY ORDERABLE S Performing Organization Address [facility] Phone Number [facility] * T4 (07/18/2011 9:45 AM EDT) Pathologist [facility] T4 Total 6.6 5.1 - 10.8 mcg/dL [facility] Comment: Reference Range: [place] Blood: ??6.9-14.4 mcg/dL Females: ??7.2-14.2 mcg/dL Pediatric ranges: ??Interpret with caution-ranges have not been verified Blood specimen (specimen) 07/18/2011 9:45 AM EDT 07/18/2011 9:54 AM EDT Amari Bob MD CHEMISTRY ORDERABLE S Performing Organization Address [facility] de Phone Number [facility] * TSH (07/18/2011 9:45 AM EDT) Thyroid Stimulating Hormone 1.95 0.27 - 4.20 mcIU/mL [facility] Blood specimen (specimen) 07/18/2011 9:45 AM EDT 07/18/2011 9:54 AM EDT Amari Bob MD CHEMISTRY ORDERABLE S [facility] documented in this encounter Visit Diagnoses Diagnosis Bipolar affective disorder- Primary Bipolar disorder, unspecified documented in this encounter Care Teams Take Down Inspector Relationship Specialty Start Date End Date Ayana Lai MD [address] [place] [address] PCP - General 10/22/10 07/17/11 documented as of this encounter
--- OUTSIDE RECORDS SUMMARY | 2024-10-05 10:51 | XMS_ITS | Encounter Summary ---
Author Organization [facility] [place] [address] Care Team Providers Care Diagnostic Imaging Manager Name Role Phone Ayana Lai MD Primary Care Provider [phone] Encounter Details Date Type Department Care Team (Late st Contact Info) Description 01/19/2013 Orders Only Psychiatry [place] [phone] Wendy Farias MD [facility] [place] [address] Medication adverse effect Social History Tobacco Use Types Packs/Day Years [...] Visit (TeleHealth) Psychiatry [place] [phone] Isaura García APRN [facility] [place] [address] documented as of this encounter Visit Diagnoses Diagnosis Medication adverse effect Unspecified adverse effect of unspecified drug, medicinal and biological substance documented in this encounter Care Teams Diagnostic Imaging Manager Relationship Specialty Start Date End Date Ayana Lai MD [address] [place] [address] PCP - General 07/18/11 03/29/13 documented as of this encounter
--- OUTSIDE RECORDS SUMMARY | 2024-10-05 10:51 | XMS_ITS | Encounter Summary ---
Author Organization [facility] Address [facility] [place] [address] Care Team Providers Care Hospitality Services Manager Name Role Phone Marlin Miramontes DANNA Primary Care Provider [phone] Encounter Details Date Type Department Care Team (Late st Contact Info) Description 07/23/2015 Telephone Psychiatry [place] [phone] Austin Wolfe MD [facility] [place] [address] Social History Tobacco Use Types Packs/Day Years [...] encounter Miscellaneous Notes * Telephone Encounter - Austin Wolfe MD - 07/23/2015 9:34 AM EDT Called pt to discuss her recent lithium level (0.73). She reports no significant change with the increased dose, but denies any adverse effects. She is still interested in re-starting fluoxetine. We discussed the concerns for manic symptoms given her history, and the need to continue lithium at a therapeutic dose while we try the antidepressant. We will start fluoxetine at 10 mg daily, and recommended that she continue this with her current lithium dosing until she returns to clinic in 4 weeks for follow up. We may need to further increase the lithium if we titrate the fluoxetine any further,but will defer until her next appointment. Patient is in agreement with this plan, and agrees to contact the clinic should she run into trouble with the new medication. documented in this encounter Plan of Treatment Upcoming Encounters Date Type Department Care Team (Late st Contact Info) Description 11/09/2024 11:30 AM EST TH Visit (TeleHealth) Psychiatry [place] [address] Isaura García APRN [facility] [place] [address] documented as of this encounter Visit Diagnoses Not on filedocumented in this encounter Care Teams Hospitality Services Manager Relationship Specialty Start Date End Date Marlin Miramontes APRN PCP - General 06/14/13 01/25/17 documented as of this encounter
--- OUTSIDE RECORDS SUMMARY | 2024-10-05 10:51 | XMS_ITS | Encounter Summary ---
Author Organization [facility] [place] [address] Care Team Providers Care Consumer Education Specialist Name Role Phone Ayana Lai MD Primary Care Provider [phone] Encounter Details Date Type Department Care Team (Late st Contact Info) Description 07/29/2011 Orders Only Psychiatry [place] [phone] Wendy Farias MD [facility] [place] [address] Social History Tobacco Use Types Packs/Day Years [...] Visit (TeleHealth) Psychiatry [place] [phone] Isaura García APRN [facility] [place] [address] documented as of this encounter Visit Diagnoses Not on filedocumented in this encounter Care Teams Consumer Education Specialist Relationship Specialty Start Date End Date Ayana Lai MD [address] [place] [address] PCP - General 07/18/11 03/29/13 documented as of this encounter
--- OUTSIDE RECORDS SUMMARY | 2024-10-05 10:51 | XMS_ITS | Encounter Summary ---
Author Organization [facility] [place] [address] Care Team Providers Care Exhibit Cleaner Name Role Phone MiramontesMarlin alan Ashtyn CLAY Primary Care Provider [phone] Encounter Details Date Type Department Care Team (Late st Contact Info) Description 08/23/2013 External Results Psychiatry [place] [phone] Rupali Palomo MD [facility] [place] [address] Social History Tobacco Use Types Packs/Day Years [...] Visit (TeleHealth) Psychiatry [place] [phone] Isaura García APRN [facility] [place] [address] documented as of this encounter Procedures Procedure Name Priority Date/Time Associated Diagnosis Comments EXTERNAL LAB CBC CMP THYROID RESULTS PANEL Routine 08/17/2013 LITHIUM LEVEL Routine 08/17/2013 documented in this encounter Results * CBC / CMP / Thyroid External Results (08/17/2013) White Blood Cell Hemoglobin 12.0 - 16.0 Hematocrit 36.0 - 46.0 Mean Cell Volume 82.0 - 108.0 Platelet Sodium 143 137 - 147 Potassium 4.3 3.4 - 5.3 Chloride 107 99 - 108 Carbon Dioxide 27 22 - 29 Blood Urea Nitrogen 15 Creatinine 1 Est Glomerular Filtration Rate 59.69 Glucose 79 Calcium 8.9 8.7 - 10.7 Magnesium Phosphorus 2.5 - 4.9 Protein, Total 6.4 - 8.2 Albumin 3.5 - 5.0 Bilirubin, Total 0.1 - 1.4 Bilirubin, Direct 0.01 - 0.4 Alkaline Phosphatase Aspartate Aminotransferase 13 - 35 Alanine Aminotransferase 7 - 35 Gamma Glutamyl Transferase Lactate Dehydrogenase 80 - 250 Amylase 25 - 110 Lipase 0 - 53 Thyroid Stimulating Hormone 1.03 Comment:reference range 0.36 -3.74 uIU/mL T4 Total 6.2 Comment:reference range 4.5- 12.5 ug\dL T4 Free-Eso 0.96 Comment:reference range 0.76 -1.46 ng/dL T3 Total 68 Comment:reference range 60-1 81 ng/dL 08/17/2013 Rupali Palomo MD EXTERNAL LAB ORDERAB LES * (ABNORMAL) [place] level (08/17/2013) [place] 0.41(L) Comment:reference range 0.6- 1.2 mmol/L Blood specimen (specimen) 08/17/2013 Rupali Palomo MD CHEMISTRY ORDERABLES documented in this encounter Visit Diagnoses Not on filedocumented in this encounter Care Teams Exhibit Cleaner Relationship Specialty Start Date End Date Marlin Miramontes APRN PCP - General 06/14/13 01/25/17 documented as of this encounter
--- OUTSIDE RECORDS SUMMARY | 2024-10-05 10:51 | XMS_ITS | Encounter Summary ---
Author Organization [facility] [address] Care Team Providers Care Access Rn Name Role Phone Marlin Miramontes APRN Primary Care Provider [phone]- [phone] Reason for Visit * Reason Onset Date Comments Medication Refill 08/16/2014 Encounter Details Date Type Department Care Team (Late st Contact Info) Description 08/16/2014 Refill Psychiatry [place] [phone] Adalberto Krishnamurthy MD [facility] [place] [address] Insomnia, unspecified; Bipolar I disorder, most recent episode (or current) depressed, in partial or unspecified remission; Bipolar disorder Social History Tobacco Use Types [...] Adalberto Krishnamurthy MD - 08/17/2014 10:03 AM EDTFrom: Shireen Silva To: Adalberto Krishnamurthy MD Sent: 08/16/2014 1:26 PM EDT Subject: Medication Renewal Request Original authorizing provider: MD Shireen DE LOS SANTOS would like a refill of the following medications: zolpidem (AMBIEN) 10 mg tablet [ADALBERTO KRISHNAMURTHY MD] lithium (LITHOBID) 300 mg CR tablet [ADALBERTO KRISHNAMURTHY MD] Preferred pharmacy: [id number] - [address] Comment: documented in this encounter Plan of Treatment Upcoming Encounters Date Type Department Care Team (Late st Contact Info) Description 11/09/2024 11:30 AM EST TH Visit (TeleHealth) Psychiatry [place] [address] Isaura García APRN [facility] DR [place] [address] documented as of this encounter Visit Diagnoses Diagnosis Insomnia, unspecified Bipolar I disorder, most recent episode (or current) depressed, in partial or unspecified remission Bipolar disorder Bipolar disorder, unspecified documented in this encounter Care Teams Access Rn Relationship Specialty Start Date End Date Marlin Miramontes APRN PCP - General 06/14/13 01/25/17 documented as of this encounter
--- OUTSIDE RECORDS SUMMARY | 2024-10-05 10:51 | XMS_ITS | Encounter Summary ---
Author Organization [facility] Address [facility] [place] [address] Care Team Providers Care Wireless Network Engineer Name Role Phone Marlin Miramontes PRESCRIPTION CLERK Primary Care Provider [phone] Reason for Visit * Reason Comments Bipolar Disorder Encounter Details Date Type Department Care Team (Late st Contact Info) Description 05/23/2014 2:40 PM EDT Office Visit Psychiatry [place] [phone] Rupali Palomo MD [facility] [place] [address] Bipolar I disorder, most recent episode (or current) depressed, in partial or unspecified remission (Primary Dx) Social History Tobacco Use Types [...] documented in this encounter Progress Notes * Darryl Gonzales MD - 05/23/2014 4:09 PM [...] mg/day. Will increase to 1200. Additional INformation * Rupali Palomo MD - 05/23/2014 2:59 PM EDT ESTABLISHED ADULT PATIENT OFFICE VISIT NOTE Time Spent: 30 minutes Attendee(s): Patient, this rewriter, PA student Katie Carbajal. This patient was [...] Wellbutrin XL 450 mg vs. 300 mg. Mantador, highest dose was 1800 mg and felt better but had more memory problems. Was not sedating. I've never really felt like the Mantador really managed the depression. The combination seemed effective at some point. I feel like I'm existing [...] I drink a glass or 2 of winea few times a week. Most recent labs: [...] ALT 7 - 35 29 TSH 1.24 Mantador Lvl 0.4 (L) Quality: In terms of [...] Thinks her medications need to be changed. Mantador was helpful for depression [id number] mg daily but caused mental fogginess. Did [...] May 2006 andhad seen Karen Mallory in [facility] (therapist) for years. Currently under the care of Lottie Carranza in [place], [place] (for the past 1 year). #Prior [...] but reported to have caused a rash), Mantador (Eskalith, current medication), Bupropion XL (current medication), Eszopiclone (ineffective for sleep), Oxazepam (ineffective for anxiety), Clonazepam, Zolpidem (current medication). Family Psychiatric and Medical History: Brother with alcohol use disorder, possible Bipolar disorder. Paternal grandmother with unknown psychiatric diagnosis but history of psychiatric hospitalization. Paternal uncle and cousins with unknown psychiatric diagnoses but multiple suicide attempts. Social History: Born in [facility]; has 1 older brother and 2 older sisters. Has a bachelor's degree in Psychology. Had first manic episode per report in college, lasting 2-3 months. 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 Currently lives in [place], [place] with her . Has three sons (aged 13, 20, and 22) all living at home; youngest has been recipient of psychiatric care at [facility] for years for behavioral disturbance. [...] grin. Well-groomed and nicely dressed.Some PMA noted, less fidgety. Cooperative. ? Speech: [...] recent or remote recall. ? Language: Normal [place]. ? Fund of Knowledge: Seems appropriate for [...] not hypo/manic, and not psychotic. Seems mostly dysthymic,with maladaptive personality structure and difficulty accessing coping skills. Nevertheless, as medications seem to be helping with mood dysregulation, will continue for now with the following changes - we will change her Mantador from Eskalith to Lithobid and increase her dose to 600 mg BID. She isamenable to this plan. She will need to [...] mg BID. Labs ordered: Thyroid panel, BMP, Mantador level; patient given lab order sheet to have blood drawn at [facility], results to be faxed to this rewriter in May, prior to our next appointment. Patient Instruction/Education provided: Patient provided verbal instructions regarding plan of care. Patient understands the plan? Yes documented in this encounter Plan of Treatment Upcoming Encounters Date Type Department Care Team (Late st Contact Info) Description 11/09/2024 11:30 AM EST TH Visit (TeleHealth) Psychiatry [place] [address] Isaura García APRN [facility] [place] [address] documented as of this encounter Visit Diagnoses Diagnosis Bipolar I disorder, most recent episode (or current) depressed, in partial or unspecified remission- Primary documented in this encounter Care Teams Wireless Network Engineer Relationship Specialty Start Date End Date Marlin Miramontes APRN PCP - General 06/14/13 01/25/17 documented as of this encounter
--- OUTSIDE RECORDS SUMMARY | 2024-10-05 10:51 | XMS_ITS | Encounter Summary ---
Author Organization [facility] Address [facility] [place] [address] Care Team Providers Care Interlacer Name Role Phone Marlin Miramontes APRN Primary Care Provider [phone] Reason for Visit * Reason Comments Establish Care Encounter Details Date Type Department Care Team (Late st Contact Info) Description 08/09/2013 2:40 PM EDT Office Visit Psychiatry [place] [phone] Rupali Palomo MD [facility] [place] [address] Bipolar disorder (Primary Dx) Social History Tobacco [...] Progress Notes * Darryl Gonzales MD - 08/09/2013 3:23 PM [...] changes currently Labs to be done in [facility] and faxed to Dr. Palomo. Additional INformation * Rupali Palomo MD - 08/09/2013 1:32 PM EDT ESTABLISHED ADULT PATIENT OFFICE VISIT NOTE Time Spent: 60 minutes Attendee(s): Patient, this keno writer This patient was seen with Dr. Darryl Gonzales. See his note for confirmatory and/or revisionary documentation. HISTORY Chief Complaint: Shireen Silva is a 48 y.o. woman who presents today to establish care with a new provider. HPI: () Ms. Silva is a 48 year old woman with a past history of Bipolar 1 disorder, Generalized Anxietydisorder, and Borderline traits, last seen in clinic by Dr. Wendy Farias on 03/15/13, here to establishcare with this keno writer. Today, she reports that she is mostly troubled by allergy season, and that she has been trying Ovidio and Zyrtec. She smiles, adding that she's lived in [place] for 15 years and has still not acclimated. She is also bothered by a lot of PMS problems, with increased anger and feeling like her head is noisy, fuzzy, lasting roughly 1 week. At the time of this appointment,she is anticipating the imminent onset of her menstrual period, and has been coping with this. In addition, she says that she is generally more depressed when she is pre-menstrual, her mood slips a bit, but she tries to tell herself that this will pass. She does not endorse any suicidal or homicidal thoughts. Although she has a history of cutting, she last cut at least 6 months ago.... Before I kind of got help. She has not been manic ever, saying that she only had a short spell of minor hypomania lasting a few days once, and that she tends to be more depressed. Despite this, she reports sleeping through the night, her appetite is okay, and her energy is so-so... It depends on the day but is usually not great. Life at home seems to have stabilized somewhat, as per Ms. Silva, her has started seeing a therapist and has begun taking an anti-depressant. Her sons are all living at home and everyone seems to be getting along well. She has been seeing therapist Lottie Roberts in [place] for the past year and feels this is going well. In terms of her medications, she feels the Taconite is helpful and has noted no side [...] Medication Status Sig Dispense Refill ??? fexofenadine (OVIDIO) 60 mg tablet Active Take 60 mg [...] under the care of Lottie Carranza in [place], [place] (for the past 1 year). #Prior [...] but reported to have caused a rash), Taconite (Eskalith, current medication), Bupropion XL (current medication), Eszopiclone (ineffective for sleep), Oxazepam (ineffective for anxiety), Clonazepam, Zolpidem (current medication). Family Psychiatric and Medical History: Brother with alcohol use disorder, possible Bipolar disorder. Paternal grandmother with unknown psychiatric diagnosis but history of psychiatric hospitalization. Paternal uncle and cousins with unknown psychiatric diagnoses but multiple suicide attempts. Social History: Born in [facility] [facility] [place]; has 1 older brother and 2 older sisters. Has a bachelor's degree in Psychology. Had first manic episode per report in college, lasting 2-3 months. 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 Currently lives in [place], [place] with her . Has three sons (aged 13, 20, and 22) all living at home; youngest has been recipient of psychiatric care at [facility] for years for behavioral disturbance. was deployed [...] directly talk about symptoms related to her diagnosis until asked, then linear. Logical. Goal-directed. ? Associations: [...] recent or remote recall. ? Language: Normal Spanish. ? Fund of Knowledge: Seems appropriate for age and experience. Psychotherapeutic Interventions and Response: Provided supportive statements to which she respondedpositively. MEDICAL DECISION MAKING ASSESSMENT: Shireen Silva is a 48 y.o. woman with Bipolar 1 disorder, most recent episode depressed and MALVIN. Her symptoms Of Bipolar disorder are stable at this time on her current medication. Although she endorses some difficulty coping with PMS, she is not interested in a new medication at this time and is amenable to coping with her symptoms. She has not been suicidal or homicidal and seems to be feeling better in the setting of her connecting [...] current medication(s). Labs ordered: Thyroid panel, BMP, Taconite level; patient given lab order sheet to have blood drawn at [facility], results to be faxed to this keno writer. Patient Instruction/Education provided: Patient provided verbal instructions regarding plan of care. Patient understands the plan? Yes documented in this encounter Plan of Treatment Upcoming Encounters Date Type Department Care Team (Late st Contact Info) Description 11/09/2024 11:30 AM EST TH Visit (TeleHealth) Psychiatry [place] [address] Isaura García APRN [facility] [place] [address] documented as of this encounter Visit Diagnoses Diagnosis Bipolar disorder- Primary Bipolar disorder, unspecified documented in this encounter Care Teams Interlacer Relationship Specialty Start Date End Date Marlin Miramontes APRN PCP - General 06/14/13 01/25/17 documented as of this encounter
--- OUTSIDE RECORDS SUMMARY | 2024-10-05 10:51 | XMS_ITS | Encounter Summary ---
Author Organization [facility] [place] [address] Care Team Providers Care Fashion Adviser Name Role Phone Ayana Lai MD Primary Care Provider [phone] Reason for Visit * Reason Onset Date Comments Medication Refill 03/17/2012 Encounter Details Date Type Department Care Team (Late st Contact Info) Description 03/17/2012 Refill Psychiatry [place] [phone] Wendy Fraias MD [facility] [place] [address] Social History Tobacco Use Types Packs/Day Years [...] Visit (TeleHealth) Psychiatry [place] [phone] Isuara García APRN [facility] [place] [address] documented as of this encounter Visit Diagnoses Not on filedocumented in this encounter Care Teams Fashion Adviser Relationship Specialty Start Date End Date Ayana Lai MD [address] [place] [address] PCP - General 07/18/11 03/29/13 documented as of this encounter
--- OUTSIDE RECORDS SUMMARY | 2024-10-05 10:51 | XMS_ITS | Encounter Summary ---
Author Organization [facility] Address [facility] [place] [address] Care Team Providers Care Wildlife Refuge Manager Name Role Phone Ayana Lai MD Primary Care Provider [phone] Encounter Details Date Type Department Care Team (Latest Contact Info) Description 08/17/2012 2:23 PM EDT - 08/17/2012 11:59 PM EDT Hospital [place] [phone] Wendy Farias MD [facility] [place] [address] Medication adverse effect Discharge Disposition: Home Social History Tobacco Use [...] Date End Date zolpidem (AMBIEN) 10 mg tablet Take 1 tablet by mouth nightly as needed for Sleep. 30 tablet 2 07/08/2012 11/16/2012 lithium (ESKALITH) 450 mg CR tablet Take 2 tablets by mouth 2 times daily. 120 tablet 5 06/24/2012 03/15/2013 buPROPion (WELLBUTRIN XL) 150 mg 24 hr tablet Take 3 tablets by mouth every morning. 90 tablet 5 06/24/2012 01/19/2013 documented as of this encounter Plan of Treatment Upcoming Encounters Date Type Department Care Team (Late st Contact Info) Description 11/09/2024 11:30 AM EST TH Visit (TeleHealth) Psychiatry [place] [address] Isaura García APRN [facility] [place] [address] documented as of this encounter Procedures Procedure Name Priority Date/Time Associated Diagnosis Comments PTH Routine 08/17/2012 2:31 PM EDT Medication adverse effect TSH Routine 08/17/2012 2:31 PM EDT Medication adverse effect LITHIUM LEVEL Routine 08/17/2012 2:31 PM EDT Medication adverse effect BASIC METABOLIC PANEL Routine 08/17/2012 2:31 PM EDT documented in this encounter Results * (ABNORMAL) BASIC METABOLIC PANEL (NON-FASTING) (08/17/2012 2:31 PM EDT) [facility] Glucose 93 60 - 199 mg/dL CERNER MILLENNIUM Comment:Diabetes: >=200 mg/d L plus symptoms Blood Urea Nitrogen 14 8 - 18 mg/dL CERNER MILLENNIUM Creatinine 0.95 0.70 - 1.20 mg/dL CERNER MILLENNIUM Comment: Please note that the pediatric reference intervals supplied above were not validated at [facility]. Results from pediatric patients should be interpreted in conjunction to the patient's age, height and muscle mass. Sodium 141 135 - 145 mmol/L CERNER MILLENNIUM Potassium 3.4(L) 3.5 - 5.0 mmol/L CERNER MILLENNIUM Comment: Please note: ??Patients with WBC >100,000 may have falsely elevated Potassium levels. ??For accurate Potassium quantification in these patients send serum separator tube (gold top) for subsequent determinations. ??Contact the Clinical Chemistry Laboratory if there are any questions. Chloride 105 98 - 107 mmol/L CERNER MILLENNIUM Carbon Dioxide 27 22 - 31 mmol/L CERNER MILLENNIUM Anion Gap 9 5 - 15 mmol/L CERNER MILLENNIUM Calcium 9.6 8.5 - 10.5 mg/dL CERNER MILLENNIUM Est Glomerular Filtration Rate >60 >=60 CERNER MILLENNIUM Comment: The National Kidney Disease Education Program (NKDEP) has recommended all laboratories report estimated GFR (eGFR) along with plasma creatinine measurements to assist you with recognition of early kidney disease. Caveats: ??Plasma creatinine should be at steady-state (unchanged within the past week). For patients multiply eGFR by 1.2. The MDRD equation was developed using patients between the ages of 18 and 70 years. ?? The MDRD equation has not been validated for patients < 18 years of age and should not be used to assess renal function in the pediatric population. ??The MDRD eGFR equation will also overestimate the true GFR of patients above the age of 70. ??This overestimation is variable but increases with age. At present, NKDEP does NOT recommend using [...] with diabetic kidney disease. References: http://nkdep.nih.gov/resources/NKDEP_Suggestn4Labs_0606_508.pdf http://www.kidney.org/professionals/kls/pdf/faq_gfr.pdf Oneyda K, Jagdeep NA, Jitendra AK, Surjit TS, Efrain AD, Ethel CHETAN. Relative performance of the MDRD and CKD-EPI equations for estimating glomerular filtration rate among patients with varied clinical presentations. Clin J Am Soc Nephrol;6:1963-72. Blood specimen (specimen) 08/17/2012 2:31 PM EDT 08/17/2012 2:44 PM EDT Narrative Resulting Agency Comment Spec In Lab Don Wright MD CHEMISTRY ORDERABLES Performing Organization Address City/[facility] Co de Phone Number HORACIO FLORESIUM * PTH (08/17/2012 2:31 PM EDT) Parathyroid Hormone 44 15 - 65 pg/mL CERRIVER ORTEGAENNIUM Blood specimen (specimen) 08/17/2012 2:31 PM EDT 08/17/2012 2:44 PM EDT Narrative Resulting Agency Comment Spec In Lab Don Wright MD CHEMISTRY ORDERABLES Performing Organization Address City/[facility] Co de Phone Number HORACIO FLORESIUM * TSH (08/17/2012 2:31 PM EDT) Thyroid Stimulating Hormone 2.19 0.27 - 4.20 mcIU/mL HORACIO FLORESIUM Blood specimen (specimen) 08/17/2012 2:31 PM EDT 08/17/2012 2:44 PM EDT Narrative Resulting Agency Comment Spec In Lab Don Wright MD CHEMISTRY ORDERABLES Performing Organization Address [facility] de Phone Number HORACIO FLORESIUM * [place] level (08/17/2012 2:31 PM EDT) [place] 0.80 mmol/L HORACIO FLORESIUM Comment: Therapeutic level for bipolar depression: 0.60-1.20 mmol/L Action Level: ?? Acute toxicity: ?>4.00 mmol/L ?? Chronic toxicity: ??>1.50 mmol/L Values greater than or equal to the action level necessitate clinical intervention. ??Values less than this level may necessitate intervention based on clinical condition of the patient. Ref: ??Gerald s Toxicologic Emergencies 6th ed 1997; p. 967 Blood specimen (specimen) 08/17/2012 2:31 PM EDT 08/17/2012 2:44 PM EDT Narrative Resulting Agency Comment Spec In Lab Don Wright MD CHEMISTRY ORDERABLES Performing Organization Address [facility] Co de Phone Number HORACIO JORGE documented in this encounter Visit Diagnoses Diagnosis Medication adverse effect Unspecified adverse effect of unspecified drug, medicinal and biological substance documented in this encounter Care Teams Wildlife Refuge Manager Relationship Specialty Start Date End Date Ayana Lai MD [address] [place] [address] PCP - General 07/18/11 03/29/13 documented as of this encounter
--- OUTSIDE RECORDS SUMMARY | 2024-10-05 10:51 | XMS_ITS | Encounter Summary ---
Author Organization [facility] [place] [address] Care Team Providers Care Monotype Operator Name Role Phone Ayana Lai MD Primary Care Provider [phone] Reason for Visit * Reason Comments Bipolar Disorder Encounter Details Date Type Department Care Team (Late st Contact Info) Description 12/17/2011 2:10 PM EST Office Visit Psychiatry [place] [phone] Wendy Farias MD [facility] [address] [place] [address] Bipolar disorder, most recent episode depressed (Primary Dx) Social History Tobacco [...] as of this encounter Progress Notes * Wendy Farias MD - 12/17/2011 5:38 PM EST MED MANAGEMENT Med Management (CPT [id number] LUDA 2009) Location: Office Time Spent: 30 [...] did provide her with contact info for therapistsin the area and she plans to call them [...] time and situation. Attention/Concentration: Alert. Medical Status: [place] level 0.6 BMP and TFT wnl Medications: [...] 7 tablets. ?? Recheck BMP, TFT, and [place] level in 5 months. ?? Follow up in 5 months. Patient Instruction/Education provided: Patient provided verbal instructions regarding plan. Patient understands the plan? Stressed but managing. * Td Crawford MD - 12/17/2011 3:03 PM [...] lithium well - no tremor, polyuria, polydypsia - labs Results for SHIREEN SILVA ( ) as [...] 100 Calcium Latest Range: 8.5-10.5 mg/dL 9.5 [place] Lvl No range found 0.60 T3, Total [...] Visit (TeleHealth) Psychiatry [place] [address] Isaura García APRN [facility] [place] [address] documented as of this encounter Visit Diagnoses Diagnosis Bipolar disorder, most recent episode depressed- Primary Bipolar I disorder, most recent episode (or current) depressed, unspecified documented in this encounter Care Teams Monotype Operator Relationship Specialty Start Date End Date Ayana Lai MD [address] [place] [address] PCP - General 07/18/11 03/29/13 documented as of this encounter
--- OUTSIDE RECORDS SUMMARY | 2024-10-05 10:51 | XMS_ITS | Encounter Summary ---
Author Organization [facility] [place] [address] Care Team Providers Care Wood Carver Name Role Phone Marlin Miramontes APRN Primary Care Provider [phone] Reason for Visit * Reason Onset Date Comments Medication Refill 12/30/2014 Encounter Details Date Type Department Care Team (Late st Contact Info) Description 12/30/2014 Refill Psychiatry [place] [phone] Adalberto Krishnamurthy MD [facility] [place] [address] Bipolar I disorder, most recent episode (or [...] Adalberto Krishnamurthy MD - 01/01/2015 4:20 PM ESTFrom: Shireen Silva To: Adalberto Krishnamurthy MD Sent: 12/30/2014 10:29 AM EST Subject: Medication Renewal Request Original authorizing provider: MD Shireen DE LOS SANTOS would like a refill of the following medications: lithium (LITHOBID) 300 mg Tablet Sustained Release [ADALBERTO KRISHNAMURTHY MD] Preferred pharmacy: [id number] - [place], [place] - [address] [facility] Comment: documented in this encounter Plan of Treatment Upcoming Encounters Date Type Department Care Team (Late st Contact Info) Description 11/09/2024 11:30 AM EST TH Visit (TeleHealth) Psychiatry [place] [address] Isaura García APRN [facility] [place] [address] documented as of this encounter Visit Diagnoses Diagnosis Bipolar I disorder, most recent episode (or current) depressed, in partial or unspecified remission documented in this encounter Care Teams Wood Carver Relationship Specialty Start Date End Date Marlin Miramontes APRN PCP - General 06/14/13 01/25/17 documented as of this encounter
--- OUTSIDE RECORDS SUMMARY | 2024-10-05 10:51 | XMS_ITS | Encounter Summary ---
Author Organization [facility] [place] [address] Care Team Providers Care Forest Fire Prevention Specialist Name Role Phone Ayana Lai MD Primary Care Provider [phone] Reason for Visit * Reason Onset Date Comments Medication Refill 10/02/2011 Encounter Details Date Type Department Care Team (Late st Contact Info) Description 10/02/2011 Refill Psychiatry [place] [phone] Wendy Farias MD [facility] [place] [address] Social History Tobacco Use Types Packs/Day Years [...] Visit (TeleHealth) Psychiatry [place] [phone] Isaura García APRN [facility] [place] [address] documented as of this encounter Visit Diagnoses Not on filedocumented in this encounter Care Teams Forest Fire Prevention Specialist Relationship Specialty Start Date End Date Ayana Lai MD [address] [place] [address] PCP - General 07/18/11 03/29/13 documented as of this encounter
--- OUTSIDE RECORDS SUMMARY | 2024-10-05 10:51 | XMS_ITS | Encounter Summary ---
Author Organization [facility] [place] [address] Care Team Providers Care Wool Classer Name Role Phone Ayana Lai MD Primary Care Provider [phone] Reason for Visit * Reason Onset Date Comments Medication Refill 09/19/2011 Encounter Details Date Type Department Care Team (Late st Contact Info) Description 09/19/2011 Refill Psychiatry [place] [phone] Wendy Farias MD [facility] [address] PS[place]CHI[place] [address] Social History Tobacco Use Types Packs/Day Years [...] Visit (TeleHealth) Psychiatry [place] [phone] Isaura García APRN [facility] [address] [place] [address] documented as of this encounter Visit Diagnoses Not on filedocumented in this encounter Care Teams Wool Classer Relationship Specialty Start Date End Date Ayana Lai MD [address] [place] [address] PCP - General 07/18/11 03/29/13 documented as of this encounter
--- OUTSIDE RECORDS SUMMARY | 2024-10-05 10:51 | XMS_ITS | Encounter Summary ---
Author Organization [facility] [place] [address] Care Team Providers Care Ornamental Brick Installer Name Role Phone Marlin Miramontes APRN Primary Care Provider [phone] Reason for Visit * Reason Onset Date Comments Medication Refill 05/23/2015 Encounter Details Date Type Department Care Team (Late st Contact Info) Description 05/23/2015 Refill Psychiatry [place] [phone] Adalberto Krishnamurthy MD [facility] [place] [address] Insomnia, unspecified Social History Tobacco Use Types [...] Telephone Encounter - Adalberto Krishnamurthy MD - 05/23/2015 11:22 AM EDTFrom: Shireen Silva To: Adalberto Krishnamurthy MD Sent: 05/23/2015 10:50 AM EDT Subject: Medication Renewal Request Original authorizing provider: MD Shireen DE LOS SANTOS would like a refill of the following medications: zolpidem (AMBIEN) 10 mg Tablet [ADALBERTO KRISHNAMURTHY MD] Preferred pharmacy: [id number] - [place], [place] - [address] [facility] Comment: documented in this encounter Plan of Treatment Upcoming Encounters Date Type Department Care Team (Late st Contact Info) Description 11/09/2024 11:30 AM EST TH Visit (TeleHealth) Psychiatry [place] [address] Isaura García APRN [facility] [place] [address] documented as of this encounter Visit Diagnoses Diagnosis Insomnia, unspecified documented in this encounter Care Teams Ornamental Brick Installer Relationship Specialty Start Date End Date Marlin Miramontes APRN PCP - General 06/14/13 01/25/17 documented as of this encounter
--- OUTSIDE RECORDS SUMMARY | 2024-10-05 10:51 | XMS_ITS | Encounter Summary ---
Author Organization [facility] Address [facility] [place] [address] Care Team Providers Care Package Sorter Name Role Phone Ayana Lai MD Primary Care Provider Reason for Visit * Reason Comments Depression Encounter Details Date Type Department Care Team (Late st Contact Info) Description 03/15/2013 2:40 PM EDT Office Visit Psychiatry [place] [phone] Wendy Farias MD [facility] [place] [address] Bipolar disorder with current episode depressed (Primary [...] Progress Notes * Don Wright MD - 03/27/2013 10:05 PM [...] were thought to be required. Additional comments: * Wendy Farias MD - 03/15/2013 8:23 PM [...] as prescribed with no medication side effects. [place] level 0.39. Associated S&S: Complaining of pain [...] on 09/14/12 at which time time joined session.It was recommended to start couples therapy, which [...] Visit (TeleHealth) Psychiatry [place] [address] Isaura García APRN [facility] [place] [address] documented as of this encounter Visit Diagnoses Diagnosis Bipolar disorder with current episode depressed- Primary Bipolar I disorder, most recent episode (or current) depressed, unspecified documented in this encounter Care Teams Package Sorter Relationship Specialty Start Date End Date Ayana Lai MD [address] [place] [address] PCP - General 07/18/11 03/29/13 documented as of this encounter
--- OUTSIDE RECORDS SUMMARY | 2024-10-05 10:51 | XMS_ITS | Encounter Summary ---
Author Organization [facility] [place] [address] Care Team Providers Care Oenologist Name Role Phone Ayana Lai MD Primary Care Provider [phone] Encounter Details Date Type Department Care Team (Late st Contact Info) Description 02/04/2013 External Results Psychiatry and [place] [phone] Provider, Scanning Social History Tobacco Use Types [...] Visit (TeleHealth) Psychiatry and [place] [phone] Isaura García APRN [facility] [place] [address] documented as of this encounter Procedures Procedure Name Priority Date/Time Associated Diagnosis Comments LAB SCAN Routine 02/04/2013 documented in this encounter Results * Scan Doc: Lab (02/04/2013) Scanning Provider MEDIA MGR SCAN EXT O RDR/RSLT documented in this encounter Visit Diagnoses Not on filedocumented in this encounter Care Teams Oenologist Relationship Specialty Start Date End Date Ayana Lai MD [address] [place] [address] PCP - General 07/18/11 03/29/13 documented as of this encounter
--- OUTSIDE RECORDS SUMMARY | 2024-10-05 10:51 | XMS_ITS | Encounter Summary ---
Author Organization [facility] [place] [address] Care Team Providers Care Flag Signaler Name Role Phone Marlin Miramontes APRN Primary Care Provider [phone] Encounter Details Date Type Department Care Team (Late st Contact Info) Description 06/25/2015 9:40 AM EDT Office Visit Psychiatry [place] [phone] Austin Wolfe MD [facility] [place] [address] Bipolar I disorder, most recent episode (or [...] - documented in this encounter Patient Instructions * Patient Instructions* Austin Wolfe MD - 06/25/2015 11:00 AM EDT [email or web address] Call your insurance company to get a list of covered providers in your area 1. Increase the lithium from 600 twice a day to 600 in the morning and 900 at night 2. Check the lithium level 1 week after starting the increased dose (check in the morning before you take the first dose) 3. Once [facility] gets the result, we will contact you regarding the level and the appropriateness for starting the fluoxetine 4. Once the lithium is at the therapeutic level, will plan to start 10 mg fluoxetine daily. documented in this encounter Progress Notes * Zhanna Lorenzo MD - 06/30/2015 11:23 PM [...] a low dose of fluoxetine recently, and atthis meeting she expressed strong wishes to resume this medication. She did not feel as depressed when she was taking it. We had been worried that it would precipitate a manic episode, something thathad happened in the past. As Dr. Wolfe [...] and are pending. . Additional comments: none * Austin Wolfe MD - 06/25/2015 12:10 PM [...] been experiencing any manic symptoms off the fluoxetine (which are primarily related to impulsivity and reckless spending). She endorses some occasional thoughts of hopelessness and that life may not [...] had 3 panic attacks (with chest discomfort andSOB) in the past 2 weeks. She attributes this to her stress levels, stating that she is stressed because of her mood, and this then triggers panic episodes. Despite this, she denies using any PRN george zepam. She also expresses an interest in finding a more local therapist (she lives in [facility]). She is fearful that having to come so far for therapy will be an excuse for her to not come and do the work. Her current therapy referral is listed as in progress in [facility]. Quality: bad, depressed Severity: mild as per [...] 3 ??? UNABLE TO FIND Med Name: ShakeAltacor Body protein shakes. Per website, each contains [...] totalof 30 mg daily. 30 tablet 3 No [...] history of BPAD, type I, current episode depressed.She also has a diagnosis of MALVIN. She has reportedly never had a hospitalization or suicide attempt (although she has a history of cutting behavior). Past medication trials: Citalopram Venlafaxine Fluoxetine Bupropion (current) Risperidone [place] (current) Oxcarbazepine Clonazepam Lorazepam (current) Zolpidem (current) [...] She has a bachelors degree in psychology, but is on disability for her mental illness. EXAM [...] tipping her into diana. We discussed other options,including optimizing Wellbutrin or adding lamotrigine, but she would prefer to restart Prozac, stating she feels better on it, and the side effects are minimal. We discussed the danger of a manic episode, and agreed to restart the Prozac on the condition that her lithium be increased to a therapeutic dose prior to restarting it. Patient would also benefit from resuming therapy. As she is interested in a more local provider, wediscussed calling her insurance company vs [employer] as options for locating someone in her area. PLAN: Increase the lithium from 600 twice a day to 600 in the morning and 900 at night - Patient plans to start this next week after a planned vacation to [facility] - She will have a level drawn [...] also pending assignment to a therapist at [facility] in 6-8 weeks Patient Instruction/Education provided: Patient provided written and verbal instructions regarding treatment plan. Patient understands the plan? Yes documented in this encounter Plan of Treatment Upcoming Encounters Date Type Department Care Team (Late st Contact Info) Description 11/09/2024 11:30 AM EST TH Visit (TeleHealth) Psychiatry [place] [address] Isaura García APRN [facility] [place] [address] documented as of this encounter Visit Diagnoses Diagnosis Bipolar I disorder, most recent episode (or current) depressed, in partial or unspecified remission documented in this encounter Care Teams Flag Signaler Relationship Specialty Start Date End Date Marlin Miramontes APRN PCP - General 06/14/13 01/25/17 documented as of this encounter
--- OUTSIDE RECORDS SUMMARY | 2024-10-05 10:51 | XMS_ITS | Encounter Summary ---
Author Organization [facility] Address [facility] [place] [address] Care Team Providers Care Curing Bin Operator Name Role Phone Ayana Lai MD Primary Care Provider [phone] Reason for Visit * Reason Comments Bipolar Disorder Encounter Details Date Type Department Care Team (Late st Contact Info) Description 05/19/2012 1:40 PM EDT Office Visit Psychiatry [place] [phone] Wendy Farias MD [facility] [place] [address] Bipolar disorder (Primary Dx) Social History Tobacco [...] Progress Notes * Don Wright MD - 05/26/2012 3:17 PM EDT [ ] I discussed this [...] I agree with them as documented. [ ]} I agree with them with the following exceptions, corrections, &/or additional findings: Major issues addressed/discussed: Mood is stable despite family issues chelsey cribed by Dr. Farias. No med changes at this time. Additional comments: * Wendy Farias MD - 05/26/2012 8:14 AM EDT MED MANAGEMENT Med Management (CPT 95633 2009) Location: Office Time Spent: 30 minutes Attendee(s): Patient This patient was seen with Dr. Wright. See his note for confirmatory and/or revisionary documentation. SUBJECTIVE: Chief complaint: Bipolar disorder, recent episode depressed without psychotic features Current Status/Interval History: ?? Expressing sadness related to feeling that her family does not appreciate her and is disappointed that her family doesn't have insight into her frustration. Encouraged patient to speak with her family early about issues than letting it fester. Patient has started to see a new therapist whom she feels she has connected with but has not been able to see her recently due to therapist's vacation schedule. ?? Patient denying manic, anxiety, or psychotic symptoms. No safety concerns. ?? No medication side effects. OBJECTIVE: Pertinent Mental Status Exam (relevant findings or changes): Speech: WNL. Mood: Sad.. Affect: Appropriate.. Associations: Intact.. Judgement: Good.. Thought Process: Linear Logical. Abnormal/Psychotic Thoughts: No SI or HI. No AVH or delusions. Orientation: person, place, time and situation. Attention/Concentration: Alert. Medications: Wellbutrin XL 450mg qdaily Lithobid 900mg BID Ambien PRN insomnia ASSESSMENT (improvement since last visit): Ms. Silva is a 46 y/o F with PPHx significant for bipolar disorder who presents for medication management. Major issues continue to be difficulty with asserting herself with her family and related frustration. Otherwise, mood fairly stable, so will continue with no adjustment in dose. No safety concerns. PLAN: Continue Lithobid, Wellbutrin XL, and Ambien. Recheck BMP and [place] level Follow up in 4 months. Patient Instruction/Education provided: Patient provided verbal instructions regarding plan. Patient understands the plan? Stressed but managing. documented in this encounter Plan of Treatment Upcoming Encounters Date Type Department Care Team (Late st Contact Info) Description 11/09/2024 11:30 AM EST TH Visit (TeleHealth) Psychiatry [place] [address] Isaura García, DANNA [facility] [place] [address] documented as of this encounter Visit Diagnoses Diagnosis Bipolar disorder- Primary Bipolar disorder, unspecified documented in this encounter Care Teams Curing Bin Operator Relationship Specialty Start Date End Date Ayana Lai MD [address] [place] [address] PCP - General 07/18/11 03/29/13 documented as of this encounter
--- OUTSIDE RECORDS SUMMARY | 2024-10-05 10:51 | XMS_ITS | Encounter Summary ---
Author Organization [facility] [place] [address] Care Team Providers Care Management Expert Name Role Phone Ayaan Lai MD Primary Care Provider [phone] Encounter Details Date Type Department Care Team (Late st Contact Info) Description 03/17/2012 Orders Only Psychiatry [place] [phone] Wendy Farias MD [facility] [place] [address] Social History Tobacco Use Types Packs/Day Years [...] Visit (TeleHealth) Psychiatry [place] [phone] Isaura García APRN [facility] [place] [address] documented as of this encounter Visit Diagnoses Not on filedocumented in this encounter Care Teams Management Expert Relationship Specialty Start Date End Date Ayana Lai MD [address] [place] [address] PCP - General 07/18/11 03/29/13 documented as of this encounter
--- OUTSIDE RECORDS SUMMARY | 2024-10-05 10:51 | XMS_ITS | Encounter Summary ---
Author Organization [facility] Address [facility] [place] [address] Care Team Providers Care Dj Instructor Name Role Phone Marlin Miramontes DANNA Primary Care Provider [phone] Reason for Visit * Reason Comments Depression Anxiety Encounter Details Date Type Department Care Team (Late st Contact Info) Description 10/02/2014 9:10 AM EST Office Visit Psychiatry [place] [phone] Rupali Palomo MD [facility] [place] [address] Bipolar disorder (Primary Dx) Social History Tobacco [...] in this encounter Progress Notes * Bj, Zhanna, MD - 10/08/2014 1:02 PM EST PSYCHIATRY [...] has overall been helpful. 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 This patient was seen with Dr. [...] one that came out of the blue. She does not know what triggered that attack, as [...] 9.3 9.3 8.9 TSH 1.48 1.24 1.03 [place] Lvl 0.61 0.4 (L) 0.41 (L) Quality: [...] okay. Has mild intention tremor likely from [place] use that does not interfere with her [...] Refill ??? UNABLE TO FIND Med Name: [employer] Ball Body protein shakes. Per website, each contains [...] hand tremor mostly with movement but does notfeel it interferes with her life (likely from [place]). Psychiatric: See HPI above. Endocrine: History of [...] May 2006 andhad seen Karen Mallory in [facility] (therapist) for years. Currently under the care of Lottie Carranza in [place], [place] (for the past 1 year). #Prior [...] but reported to have caused a rash), [place] (Eskalith, current medication), Bupropion XL (current medication), Eszopiclone (ineffective for sleep), Oxazepam (ineffective for anxiety), Clonazepam, Zolpidem (current medication). Update (10/02) - Takes [employer] Body shakes and finds them helpful. Based on the contents (per the [employer] website and see Medication List), some drug- drug interactions need to be monitored. - Ashwagandha can be sedating when used with MACHINE I TRIMMER depressants (i.e. Clonazepam), and can increase thyroid hormone levels. - Astragalus can cause increases in serum [place] level. - Reishi mushrooms can slow clotting and cause hypotension. - Schisandra can worsen GERD symptoms and interfere with metabolism via the 2C9 and 3A4 [id number] enzymes. Family Psychiatric and Medical History: Brother with alcohol use disorder, possible Bipolar disorder. Paternal grandmother with unknown psychiatric diagnosis but history of psychiatric hospitalization. Paternal uncle and cousins with unknown psychiatric diagnoses but multiple suicide attempts. Social History: Born in [facility]; has 1 older brother and 2 older sisters. Has a bachelor's degree in Psychology. Had first manic episode per report in college, lasting 2-3 months. 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 Currently lives in [place], [place] with her . Has three sons (aged 13, 20, and 22) all living at home; youngest has been recipient of psychiatric care at [facility] for years for behavioral disturbance. was deployed [...] recent or remote recall. ? Language: Normal Persian. No word-finding difficulties. ? Fund of Knowledge: [...] it is. She will return to clinic in3 months. PLAN: Safety Risk Management: No SI [...] Visit (TeleHealth) Psychiatry [place] [address] Isaura García APRN [facility] [place] [address] documented as of this encounter Visit Diagnoses Diagnosis Bipolar disorder- Primary Bipolar disorder, unspecified documented in this encounter Care Teams Dj Instructor Relationship Specialty Start Date End Date Marlin Miramontes APRN PCP - General 06/14/13 01/25/17 documented as of this encounter
--- OUTSIDE RECORDS SUMMARY | 2024-10-05 10:51 | XMS_ITS | Encounter Summary ---
Author Organization [facility] [place] [address] Care Team Providers Care Degreasing Solution Mixer Name Role Phone Ayana Lai MD Primary Care Provider [phone] Reason for Visit * Reason Onset Date Comments Medication Refill 01/19/2013 Encounter Details Date Type Department Care Team (Late st Contact Info) Description 01/19/2013 Refill Psychiatry [place] [phone] Wendy Farias MD [facility] [place] [address] Social History Tobacco Use Types Packs/Day Years [...] Visit (TeleHealth) Psychiatry [place] [phone] Isaura García APRN [facility] [place] [address] documented as of this encounter Visit Diagnoses Not on filedocumented in this encounter Care Teams Degreasing Solution Mixer Relationship Specialty Start Date End Date Ayana Lai MD [address] [place] [address] PCP - General 07/18/11 03/29/13 documented as of this encounter
--- OUTSIDE RECORDS SUMMARY | 2024-10-05 10:52 | XMS_ITS | Encounter Summary ---
Author Organization [facility] Address [address] [place] [address] Care Team Providers Care Associate Professor Of Education Name Role Phone Unavailable Primary Care Provider Unavailabl e Encounter Details Date Type Department Care Team (Late st Contact Info) Description 08/21/2000 Results Only [facility] [address] [place] [address] Ayana Ramirez, [place] [address] Social History Tobacco Use Types Packs/Day Years Used Date Smoking Tobacco: Never Assessed Sex and Gender Information Value Date Recorded Sex Assigned at Not on file Gender Identity Not on file Sexual Orientation Not on file documented as of this encounter Plan of Treatment Not on file documented as of this encounter Procedures Procedure Name Priority Date/Time Associated Diagnosis Comments CYTOPATHOLOGY Routine 08/21/2000 0:00 EDT documented in this encounter Results * CYTOPATHOLOGY (08/21/2000 0:00 EDT) Pathology Report: CYTOPATHOLOGY REPORT Reports generated via electronic interface contain original data; however they are lacking the format of the original report. Caution should be taken when reading/interpreti ng unformatted reports. Name: ? SHIREEN SILVA ? Accession #: ? [id number] : ? 1965 (Age: 35) ??F ?Collect Date: ? 08/21/2000 Location: ? [facility] ? Receive Date: ? 08/24/2000 Provider: ?AYANA RAMIREZ CNM Copy to: ? Specimen/Source: ?ThinPrep Pap Test, Cervix/Endocervix Last Menstrual Period: ? 09/30/99 ? Menstrual/Pregnanc y Status: ? Post ? SPECIMEN ADEQUACY ? Satisfactory for evaluation. GENERAL CATEGORIZATION ? Within Normal Limits ? Document reviewed and electronically signed by: ? Ofelia Gordon, [place](ASCP) ? Report Date: ??08/26/2000 10:40 End of Report [facility] 08/21/2000 08/24/2000 Ayana Ramirez CNM PATHOLOGY ORDERABLES [facility] [address] [place] [address] documented in this encounter Visit Diagnoses Not on filedocumented in this encounter
--- OUTSIDE RECORDS SUMMARY | 2024-10-05 10:52 | XMS_ITS | Encounter Summary ---
Author Organization Health system Address [address] [place] [address] Care Team Providers Care Independent Trader Name Role Phone Ayana Lai MD Primary Care Provider [phone] Encounter Details Date Type Department Care Team (Late st Contact Info) Description 09/04/2023 Lab Requisition [facility] Pathology & Laboratory Medicine - [facility] [address] [place], [place] [address] Outr Resulting Lab, Provider Social History Tobacco Use Types Packs/Day Years Used Date Smoking Tobacco: Never Assessed Sex and Gender Information Value Date Recorded Sex Assigned at Not on file Gender Identity Not on file Sexual Orientation Not on file documented as of this encounter Plan of Treatment Not on file documented as of this encounter Procedures Procedure Name Priority Date/Time Associated Diagnosis Comments SPEP, INCLUDES QUANTITATION OF MONOCLONAL SPIKE PERFORMABLE Today 09/03/2023 13:48 EDT SERUM FREE LIGHT CHAINS Routine 09/03/2023 13:48 EDT IMMUNOTYPING, SERUM Today 09/03/2023 1 3:48 EDT SPEP, INCLUDES QUANTITATION OF MONOCLONAL SPIKE Routine 09/03/2023 13:48 EDT PROTEIN, TOTAL Today 09/03/2023 13:48 EDT documented in this encounter Results * IMMUNOTYPING, SERUM (09/03/2023 13:48 EDT) Immunotyping, Serum Current Interpretation : Negative for monoclonal immunoglobulin s. Reviewed by: Long De Leon MD 09/07/2023 1536 09/07/2023 15:51 [facility] Blood VENOUS BLOOD / Unknown 09/03/2023 13:48 EDT 09/04/2023 18:07 EDT Provider Outr Resulting Lab CHEMISTRY & BLOOD GAS ORDERABLES [facility] [address] [place] [address] * (ABNORMAL) SPEP, INCLUDES QUANTITATION OF MONOCLONAL SPIKE PERFORMABLE (09/03/2023 13:48 EDT) Albumin % 60.9 55.8 - 66.1 % 09/07/2023 15:51 [facility] Albumin g/dL 4.2 3.6 - 5.2 g/dL 09/07/2023 15:51 [facility] Alpha-1 % 4.9 2.9 - 4.9 % 09/07/2023 15:51 [facility] Alpha-1 g/dL 0.30 0.15 - 0.40 g/dL 09/07/2023 15:51 [facility] Alpha-2 % 13.1(H) 7.1 - 11.8 % 09/07/2023 15:51 [facility] Alpha-2 g/dL 0.90 0.50 - 1.00 g/dL 09/07/2023 15:51 [facility] Beta % 11.4 8.4 - 13.1 % 09/07/2023 15:51 [facility] Beta g/dL 0.80 0.60 - 1.20 g/dL 09/07/2023 15:51 [facility] Gamma % 9.7(L) 11.1 - 18.8 % 09/07/2023 15:51 [facility] Gamma g/dL 0.70 0.60 - 1.60 g/dL 09/07/2023 15:51 [facility] SPEP Comment Suspicious pattern seen on protein electrophoresis, immunotyping added by reflex. 09/07/2023 15:51 [facility] Comment:See scanned/suppleme ntary report. Total Protein 6.9 6.3 - 8.2 g/dL 09/07/2023 15:51 EDT [facility] Blood VENOUS BLOOD / Unknown 09/03/2023 13:48 EDT 09/04/2023 18:07 EDT Provider Outr Resulting Lab CHEMISTRY & BLOOD GAS ORDERABLES Performing Organization Address [facility] Co de Phone Number [facility] [address] [place] [address] * PROTEIN, TOTAL (09/03/2023 13:48 EDT) Blood VENOUS BLOOD / Unknown 09/03/2023 13:48 EDT 09/04/2023 18:07 EDT Provider Outr Resulting Lab CHEMISTRY & BLOOD GAS ORDERABLES Performing Organization Address [place] de Phone Number [facility] [address] [place] [address] * SERUM FREE LIGHT CHAINS (09/03/2023 13:48 EDT) [place] Free Lt Chain 1.89 0.33 - 1.94 mg/dL 09/07/2023 9:30 EDT [facility] Lambda Free Lt Chain 1.39 0.57 - 2.63 mg/dL 09/07/2023 9:30 EDT [facility] [place]/Lambda Ratio 1.36 0.26 - 1.65 09/07/2023 9:30 EDT [facility] Blood VENOUS BLOOD / Unknown 09/03/2023 13:48 EDT 09/04/2023 18:07 EDT Provider Outr Resulting Lab CHEMISTRY & BLOOD GAS ORDERABLES Performing Organization Address [facility] Co de Phone Number [facility] [address] [place] [address] documented in this encounter Visit Diagnoses Not on filedocumented in this encounter Care Teams Independent Trader Relationship Specialty Start Date End Date Ayana Lai MD [address] [place] [address] PCP - General 10/10/10 documented as of this encounter
--- OUTSIDE RECORDS SUMMARY | 2024-10-05 10:52 | XMS_ITS | Clinical Summary ---
Author Organization [facility] Address [address] [place] [address] Care Team Providers Care Dispatcher Relay Name Role Phone Ayana Lai MD Primary Care Provider [phone] Social History Tobacco Use Types Packs/Day Years Used Date Smoking Tobacco: Never Assessed Sex and Gender Information Value Date Recorded Sex Assigned at Not on file Gender Identity Not on file Sexual Orientation Not on file Plan of Treatment Health Maintenance Due Date Last Done Comments Hepatitis C Screen 1965 Hepatitis B Vaccine (1 of 3 - 19+ 3-dose series) 04/28 COVID-19 Vaccine (2022-24 season) 2023 Care Teams Dispatcher Relay Relationship Specialty Start Date End Date Ayana Lai MD [address] [place] [address] PCP - General 10/10/10
--- OUTSIDE RECORDS SUMMARY | 2024-10-05 10:52 | XMS_ITS | Encounter Summary ---
Author Organization [facility] Address [address] [place] [address] Care Team Providers Care Senior Manufacturing Engineer Name Role Phone Ayana Lai MD Primary Care Provider Encounter Details Date Type Department Care Team (Late st Contact Info) Description 12/31/2022 Lab Requisition [facility] Pathology & Laboratory Medicine - [address] [address] Outr Resulting Lab, Provider Social History Tobacco [...] Name Priority Date/Time Associated Diagnosis Comments LITHIUM Routine 12/31/2022 9:47 EST documented in this encounter Results * LITHIUM (12/31/2022 9:47 EST) [place] 1.0 See Note mmol/L 12/31/2022 17:30 EST [facility] Comment: 18 years and older: Therapeutic range: 0.6 - 1.2 mEq/L Potentially toxic: >1.5 mEq/L Therapeutic range not established for individuals <18 years old. Blood VENOUS BLOOD / Unknown 12/31/2022 9:47 EST 12/31/2022 17:13 EST Provider Outr Resulting Lab CHEMISTRY & BLOOD GAS ORDERABLES [facility] [address] [place] [address] documented in this encounter Visit Diagnoses Not on filedocumented in this encounter Care Teams Senior Manufacturing Engineer Relationship Specialty Start Date End Date Ayana Lai MD [address] [place] [address] PCP - General 10/10/10 documented as of this encounter
--- OUTSIDE RECORDS SUMMARY | 2024-10-05 10:52 | XMS_ITS | Encounter Summary ---
Author Organization [facility] Address [address] [place] [address] Care Team Providers Care Identification And Records Commander Name Role Phone Ayana Lai MD Primary Care Provider [phone] Encounter Details Date Type Department Care Team (Latest Contact Info) Description 04/11/2024 Lab Requisition [facility] Pathology & Laboratory Medicine - [facility] [address] [place] [address] Sandy Gordon FNP [address] [facility] [[email or web address] [address] [place] [address] Encounter for screening for human papillomavirus (HPV); Encounter for screening for malignant neoplasm of cervix; Encounter for general adult medical examination without abnormal findings Social History Tobacco Use Types Packs/Day Years Used Date Smoking Tobacco: Never Assessed Sex and Gender Information Value Date Recorded Sex Assigned at Not on file Gender Identity Not on file Sexual Orientation Not on file documented as of this encounter Plan of Treatment Not on file documented as of this encounter Procedures Procedure Name Priority Date/Time Associated Diagnosis Comments PAP TEST Today 04/08/2024 11:50 EDT Encounter for screening for human papillomavirus (HPV) Encounter for screening for malignant neoplasm of cervix Encounter for general adult medical examination without abnormal findings documented in this encounter Results * PAP TEST (04/08/2024 11:50 EDT) Specimens A. Cervix and/or Endocervix , ThinPrep Imaging System with Manual Evaluation 04/18/2024 11:31 EDT [facility] Specimen Adequacy Satisfactory for Evaluation - assessment of transformation zone component not applicable ( e.g. atrophy, vaginal sample, hysterectomy) Scant squamous epithelial component due to contaminant, possibly lubricant or other vaginal contaminant. 04/18/2024 11:31 EDT [facility] General Categorization Negative for intraepithelial lesion or malignancy 04/18/2024 11:31 EDT [facility] Attestation . 04/18/2024 11:31 EDT [facility] at [address] Clinical History See below 04/18/20 11:31 EDT [facility] Performing Lab [facility] 04/18/2024 11:31 EDT [facility] Scanned Images 04/18/2024 11:31 EDT [facility] Pap Test CERVIX UTERI STRUCTURE / Unknown 04/08/2024 11:50 EDT 04/11/2024 11:02 EDT Sandy Gordon HAND COUNTER PATHOLOGY ORDERABLES [facility] [address] [place], [place] [address] documented in this encounter Visit Diagnoses Diagnosis Encounter for screening for human papillomavirus (HPV) Special screening examination for human papillomavirus (HPV) Encounter for screening for malignant neoplasm of cervix Screening for malignant neoplasm of the cervix Encounter for general adult medical examination without abnormal findings Unspecified general medical examination documented in this encounter Care Teams Identification And Records Commander Relationship Specialty Start Date End Date Ayana Lai MD [address] [place] [address] PCP - General 10/10/10 documented as of this encounter
--- OUTSIDE RECORDS SUMMARY | 2024-10-05 10:52 | XMS_ITS | Encounter Summary ---
Author Organization [facility] Address [address] [place] [address] Care Team Providers Care Exercise Science Instructor Name Role Phone Unavailable Primary Care Provider Unavailabl e Encounter Details Date Type Department Care Team (Late st Contact Info) Description 11/08/2008 Before PRISM Converted Visit (Maple) [facility] - Maple conversion [address] [place] [address] Anish Oquendo MD [facility] [address] [place], [place] [id number] Social History Tobacco Use Types Packs/Day Years Used Date Smoking Tobacco: Never Assessed Sex and Gender Information Value Date Recorded Sex Assigned at Not on file Gender Identity Not on file Sexual Orientation Not on file documented as of this encounter Plan of Treatment Not on file documented as of this encounter Procedures Procedure Name Priority Date/Time Associated Diagnosis Comments HPV DETECTION, HIGH RISK TYPES Routine 11/08/2008 10:33 EST CYTOPATHOLOGY Routine 11/08/2008 0:00 EST documented in this encounter Results * HUMAN PAPILLOMA VIRUS DNA TEST (11/08/2008 10:33 EST) Specimen Description Cervix, ThinPrep vial [facility] Result Negative for HPV types 16, 18, 31, 33, 35, 39, 45, 51, 52, 56, 58, 59, and 68. [facility] Report Status Final 11/21/2008 [facility] 11/08/2008 10:3 3 EST 11/14/2008 10:33 EST Anish Oquendo MD MICROBIOLOGY - GENER AL ORDERABLES [facility] [address] [place] [address] * CYTOPATHOLOGY (11/08/2008 0:00 EST) Pathology Report: CYTOPATHOLOGY REPORT ? Reports generated via electronic interface contain original data; ? however they are lacking the format of the original report. ? Caution should be taken when reading/interpreti ng unformatted reports. ? Name: ? SHIREEN SILVA ? Accession #: ? [id number] ? : ? 1965 (Age: 43) ??F ?Collect Date: ? 11/08/2008 ? Location: ? [facility] ? Receive Date: ? 11/10/2008 ? Provider: ?ANISH READY MD ? Copy to: ? Specimen/Source: ?Pap Test, Cervix/Endocervix, ThinPrep Imaging System ? with manual evaluation ? Last Menstrual Period: ? 11/24/08 ? Other: ? HPVDX - HPV testing requested regardless of diagnosis on current ThinPrep Pap ?? test. ? SPECIMEN ADEQUACY ? Satisfactory for Evaluation ? - transformation zone component present ? GENERAL CATEGORIZATION ? Negative for Intraepithelial Lesion or Malignancy ? Document reviewed and electronically signed by: ? Ayana B. Chester, SCT(ASCP) ? Report Date: ??11/13/2008 15:56 ? End of Report ? [facility] 11/08/2008 11/10/2008 Anish Oquendo MD PATHOLOGY ORDERABLES [facility] [address] [place] [address] documented in this encounter Visit Diagnoses Not on filedocumented in this encounter
--- OUTSIDE RECORDS SUMMARY | 2024-10-05 10:52 | XMS_ITS | Encounter Summary ---
Author Organization [facility] Address [facility] [place] [address] Care Team Providers Care Regional Sales Associate Name Role Phone Ayana Lai MD Primary Care Provider [phone] Reason for Visit * Reason Comments Bipolar Disorder Encounter Details Date Type Department Care Team (Late st Contact Info) Description 03/19/2011 2:05 PM EDT Office Visit Psychiatry [place] [phone] Marlen Morocho MD PSYCHIATRY DEPT. [facility] [place] [place] [address] Bipolar affective disorder, currently depressed, mild (Primary Dx) Social History Tobacco Use Types [...] as of this encounter Progress Notes * Justus Quinteros MD - 03/19/2011 2:58 PM [...] this will continue until/less s/he requests otherwise) * Marlen Morocho T - 03/19/2011 2:37 PM EDT MEDICATION MANAGEMENT NOTE Location: [ x ] Office [ ] Facility Time Spent: 30 min Attendee(s): [ x ] Patient [ ] Family members (identify by relationship to pt.) [ ] Other (identity by relationship to pt.) PCP: Ayana Lai MD [facility] [address] [place] [id number] This patient was: [ x ] seen with / [ x] discussed with teaching faculty Dr. Aldair M.D.; see his/her note for confirmatory and/or revisionary documentation. Identifying data: Ms. 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, q 3 weeks, has therapist number to [...] s/he requests otherwise) Marlen Morocho MD PGY-4, #[id number] documented in this encounter Plan of Treatment Upcoming Encounters Date Type Department Care Team (Late st Contact Info) Description 11/09/2024 11:30 AM EST TH Visit (TeleHealth) Psychiatry [place] [address] Isaura García APRN [facility] [place] [address] documented as of this encounter Visit Diagnoses Diagnosis Bipolar affective disorder, currently depressed, mild- Primary Bipolar I disorder, most recent episode (or current) depressed, mild documented in this encounter Care Teams Regional Sales Associate Relationship Specialty Start Date End Date Ayana Lai MD [address] [place] [address] PCP - General 10/22/10 07/17/11 documented as of this encounter
--- OUTSIDE RECORDS SUMMARY | 2024-10-05 10:52 | XMS_ITS | Encounter Summary ---
Author Organization [facility] Address [facility] [place] [address] Care Team Providers Care Steam Plant Operator Name Role Phone Ayana Farrar MD Primary Care Provider [phone] Reason for Referral * Psychiatric (Routine) - Closed Specialty Diagnoses / Procedures Referred By Mohini lazo Referred To Contact Psychiatry Diagnoses Bipolar I disorder, most recent episode (or current) depressed, mild Marlen Morocho MD PSYCHIATRY DEPT. [facility] [place] [address] [facility] [address] [place] [address] Referral ID Status Reason Start Date Expiration Date V isits Requested Visits Authorized [id number] Closed Assume Subset of Care 05/22/2011 11/18/2011 1 1 Encounter Details Date Type Department Care Team (Late st Contact Info) Description 05/22/2011 Orders Only Psychiatry [place] [address] Kelton Diaz MD [facility] [place] [address] Bipolar I disorder, most recent episode (or current) depressed, mild (Primary Dx) Social History Tobacco [...] as of this encounter Progress Notes * Marlen Morocho - 05/22/2011 2:15 PM EDT Psychiatry Off Service Note Name of new provider (if known): Please refer to diagnostic evaluation or comprehensive note on: blue chart at [facility] for initial eval, also 10/09/08, 08/21/10, 03/19/11. 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 Has been stable overall for the past 3 years. Doing well on current meds and they have not been changed in the p ast 2 years. Last labs in 07/2010 - all nl, will need new labs in July. Pt will f/up in May-Jun with a new resident and call if questions/concerns. Current medications: per [facility] No outpatient prescriptions have been marked as taking for the 05/22/11 encounter (Orders Only) withKELTON DIAZ. Allergies: Allergies as of 05/22/2011 ??? (No Known Allergies) Relevant prior medication trials: Klonopin - only prn, Serax - prn instead of klonopin. Never overuses, but if uses more than usual - indication of increased stress at home. Has therapist at home. Additional Information to facilitate quality care (include direction of treatment, relevant generalmedical issues, labs, imaging, or concerns about patters of medication use): Name and contact information for clinicians on care team: PCP: AYANA FARRAR MD Therapist: assistant finance manager: Diagnosis: [place] I: BPAD (MRE mixed - unspecified) and MALVIN Subjective: Patient ID: Shireen Silva is a 46 y.o. female. HPI Review of Systems Objective: Physical Exam Assessment and Plan: No problem-specific visit notes found for this encounter. documented in this encounter Plan of Treatment Upcoming Encounters Date Type Department Care Team (Kaylen Contact Info) Description 11/09/2024 11:30 AM EST TH Visit (TeleHealth) Psychiatry [place] [address] Isaura García APRN [facility] [place] [address] Scheduled Referrals Name Type Priority Associated Diagnoses Orde r Schedule Psychiatry Outpatient Referral Routine Bipolar I disorder, most recent episode (or current) depressed, mild Ordered: 05/22/2011 documented as of this encounter Visit Diagnoses Diagnosis Bipolar I disorder, most recent episode (or current) depressed, mild- Primary documented in this encounter Care Teams Steam Plant Operator Relationship Specialty Start Date End Date Ayana Farrar MD [address] [place] [address] PCP - General 10/22/10 07/17/11 documented as of this encounter
--- OUTSIDE RECORDS SUMMARY | 2024-10-05 10:52 | XMS_ITS | Encounter Summary ---
Author Organization [facility] [place] [address] Care Team Providers Care Ladder Operator Name Role Phone Ayana Lai MD Primary Care Provider [phone] Encounter Details Date Type Department Care Team (Late st Contact Info) Description 11/13/2010 2:00 PM EST Office Visit Psychiatry and [place] [phone] Justus Quinteros MD [facility] [place] [address] Social History Tobacco Use Types Packs/Day Years [...] Visit (TeleHealth) Psychiatry and [place] [phone] Isaura García APRN [facility] [place] [address] documented as of this encounter Visit Diagnoses Not on filedocumented in this encounter Care Teams Ladder Operator Relationship Specialty Start Date End Date Ayana Lai MD [address] [place] [address] PCP - General 10/22/10 07/17/11 documented as of this encounter
--- OUTSIDE RECORDS SUMMARY | 2024-10-05 10:52 | XMS_ITS | Encounter Summary ---
Author Organization [facility] Address [address] [place] [address] Care Team Providers Care Lockstitch Machine Operator Name Role Phone Ayana Lai MD Primary Care Provider [phone] Encounter Details Date Type Department Care Team (Late st Contact Info) Description 10/09/2010 Results Only [facility] Services - [facility] ([facility] [address] [place], [place] [address] Jose Fang, [address] [facility] [address] [place], [place] [id number] Social History Tobacco Use Types Packs/Day Years Used Date Smoking Tobacco: Never Assessed Sex and Gender Information Value Date Recorded Sex Assigned at Not on file Gender Identity Not on file Sexual Orientation Not on file documented as of this encounter Plan of Treatment Not on file documented as of this encounter Procedures Procedure Name Priority Date/Time Associated Diagnosis Comments CYTOPATHOLOGY Routine 10/09/2010 0:00 EST documented in this encounter Results * CYTOPATHOLOGY (10/09/2010 0:00 EST) Pathology Report: CYTOPATHOLOGY REPORT ? Reports generated via electronic interface contain original data; ? however they are lacking the format of the original report. ? Caution should be taken when reading/interpreti ng unformatted reports. ? Name: ? ANTONIO SHIREEN ? Accession #: ? [id number] ? : ? 1965 (Age: 45) ??F ?Collect Date: ? 10/09/2010 ? Location: ? [facility] ? Receive Date: ? 10/10/2010 ? Provider: ? JOSE FANG DO ? Copy to: ? CYTOLOGIC DIAGNOSIS: ? Thyroid, right, fine needle aspiration: ? - Consistent with benign thyroid nodule (colloid nodule). ??See comment. ? COMMENT: ? The specimen shows follicles and groups of follicular cells within a ? background of abundant colloid. ??The follicular cells show a bland nuclear ? chromatin pattern. ??There may be rare nuclear grooves, but no inclusions or ? other features of papillary thyroid carcinoma are identified. The cells are well preserved without evidence of degeneration or necrosis. The cytologic features ?? are most consistent with a benign colloid nodule. ??Clinical correlation is ? advised, with follow-up evaluation as clinically indicated. ??The case was ? reviewed in consultation by Dr. Aniket Lion, who concurs with the ? interpretation. (Dr. Lyons)/mpl ? Document reviewed and electronically signed by: ? Soraya J. Lyons, MD PhD ? Report Date: ??10/11/2010 13:41 ? By the signature above, the attending physician certifies that he/she has ? personally conducted a gross and/or microscopic examination of the described ? specimens and rendered or confirmed the above diagnosis. ? Specimen Type: ? Thyroid, Fine Needle Aspiration, Right ? Clinical History: ? Cystic and solid component thyroid nodule. ??Negative radiation exposure ? Gross Description: ? 3 fixed prepared slides, 1 air dried prepared slide, and 1 tube of Cytolyt were received and processed by selective cellular enhancement technique. ? End of Report ? [facility] 10/09/2010 10/10/2010 8:3 8 EST Jose Fang DO PATHOLOGY ORDER BARBY [facility] [address] [place] [address] documented in this encounter Visit Diagnoses Not on filedocumented in this encounter Care Teams Lockstitch Machine Operator Relationship Specialty Start Date End Date Ayana Lai MD [address] [place] [address] PCP - General 10/10/10 documented as of this encounter
--- OUTSIDE RECORDS SUMMARY | 2024-10-05 10:52 | XMS_ITS | Encounter Summary ---
Author Organization [facility] [place] [address] Care Team Providers Care In Store Marketer Name Role Phone Ayana Lai MD Primary Care Provider [phone] Reason for Visit * Reason Onset Date Comments Medication Refill 06/10/2011 Encounter Details Date Type Department Care Team (Late st Contact Info) Description 06/10/2011 Refill Psychiatry [place] [phone] Wendy Farias MD [facility] [place] [address] Social History Tobacco Use Types Packs/Day Years [...] encounter Miscellaneous Notes * Telephone Encounter - Wendy Farias MD - 06/11/2011 3:01 PM EDT Returned call from Ms. Silva regarding a refill of her Zolpidem 10mg po qhs, Durand 900mg po bid and Buproprion XL 450mg po qam. Patient reports that she is tolerating her medication to good effect. With the exception of Zolpidem which was called in, her prescriptions were efaxed to [facility]. documented in this encounter Plan of Treatment Upcoming Encounters Date Type Department Care Team (Late st Contact Info) Description 11/09/2024 11:30 AM EST TH Visit (TeleHealth) Psychiatry [place] [address] Isaura García APRN [facility] [place] [address] documented as of this encounter Visit Diagnoses Not on filedocumented in this encounter Care Teams In Store Marketer Relationship Specialty Start Date End Date Ayana Lai MD [address] [place] [address] PCP - General 10/22/10 07/17/11 documented as of this encounter
--- OUTSIDE RECORDS SUMMARY | 2024-10-05 10:52 | XMS_ITS | Encounter Summary ---
Author Organization [facility] Address [facility] [place] [address] Care Team Providers Care Pharmacy Order Entry Technician Name Role Phone Ayana Lai MD Primary Care Provider [phone] Reason for Visit * Reason Onset Date Comments Medication Refill 04/10/2011 Encounter Details Date Type Department Care Team (Late st Contact Info) Description 04/10/2011 Refill Psychiatry [place] [phone] Joey Chan MD PSYCHIATRY DEPT. [facility] [address] Social History Tobacco Use Types Packs/Day Years [...] Psychiatry [place] [phone] Isaura García APRN [facility] [place] [address] documented as of this encounter Visit Diagnoses Not on filedocumented in this encounter Care Teams Pharmacy Order Entry Technician Relationship Specialty Start Date End Date Ayana Lai MD [address] [place] [address] PCP - General 10/22/10 07/17/11 documented as of this encounter
--- OUTSIDE RECORDS SUMMARY | 2024-10-05 10:52 | XMS_ITS | Referral Summary ---
Author Organization [facility] Address [address] [place] [address] Care Team Providers Care Health Unit Coordinator Name Role Phone Ayana Lai MD Primary Care Provider [phone] Social History Tobacco Use Types Packs/Day Years Used Date Smoking Tobacco: Never Assessed Sex and Gender Information Value Date Recorded Sex Assigned at Not on file Gender Identity Not on file Sexual Orientation Not on file Plan of Treatment Not on file Care Teams Health Unit Coordinator Relationship Specialty Start Date End Date Ayana Lai MD [address] [place], [place] [address] PCP - General 10/10/10
--- OUTSIDE RECORDS SUMMARY | 2024-10-05 10:52 | XMS_ITS | Encounter Summary ---
Author Organization [facility] [place] [address] Care Team Providers Care Deicer Repairer Electric Name Role Phone Ayana Lai MD Primary Care Provider [phone] Encounter Details Date Type Department Care Team (Late st Contact Info) Description 02/12/2011 2:00 PM EDT Office Visit Psychiatry [place] [phone] Justus Quinteros MD [facility] DR [place] [address] Social History Tobacco Use Types Packs/Day Years [...] Visit (TeleHealth) Psychiatry [place] [phone] Isaura García APRN [facility] [address] [place] [address] documented as of this encounter Visit Diagnoses Not on filedocumented in this encounter Care Teams Deicer Repairer Electric Relationship Specialty Start Date End Date Ayana Lai MD [address] [place] [address] PCP - General 10/22/10 07/17/11 documented as of this encounter
--- OUTSIDE RECORDS SUMMARY | 2024-10-05 10:52 | XMS_ITS | Encounter Summary ---
Author Organization [facility] Address [facility] [place] [address] Care Team Providers Care Superintendent Construction Name Role Phone Ayana Lai MD Primary Care Provider [phone] Reason for Visit * Reason Onset Date Comments Medication Refill 05/14/2011 Encounter Details Date Type Department Care Team (Late st Contact Info) Description 05/14/2011 Refill Psychiatry [place] [phone] Marlen Morocho MD PSYCHIATRY DEPT. [facility] [place] [address] Social History Tobacco Use Types Packs/Day Years [...] Visit (TeleHealth) Psychiatry [place] [phone] Isaura García APRN [facility] [place] [address] documented as of this encounter Visit Diagnoses Not on filedocumented in this encounter Care Teams Superintendent Construction Relationship Specialty Start Date End Date Ayana Lai MD [address] [place] [address] PCP - General 10/22/10 07/17/11 documented as of this encounter
--- OUTSIDE RECORDS SUMMARY | 2024-10-05 10:52 | XMS_ITS | Encounter Summary ---
Author Organization [facility] Address [address] [place] [address] Care Team Providers Care Material Flow Analyst Name Role Phone Unavailable Primary Care Provider Unavailabl e Encounter Details Date Type Department Care Team (Late st Contact Info) Description 09/24/2000 Results Only [facility] conversion [address] [place] [address] Deonte Chopra MD [address] [place] [address] Social History Tobacco Use Types Packs/Day Years Used Date Smoking Tobacco: Never Assessed Sex and Gender Information Value Date Recorded Sex Assigned at Not on file Gender Identity Not on file Sexual Orientation Not on file documented as of this encounter Plan of Treatment Not on file documented as of this encounter Procedures Procedure Name Priority Date/Time Associated Diagnosis Comments SURGICAL PATHOLOGY Routine 09/24/2000 0:00 EDT documented in this encounter Results * SURGICAL PATHOLOGY (09/24/2000 0:00 EDT) Pathology Report: SURGICAL PATHOLOGY REPORT Reports generated via electronic interface contain original data; however they are lacking the format of the original report. Caution should be taken when reading/interpreti ng unformatted reports. Name: ? SHIREEN SILVA ? Accession #: ? [id number] ? : ? 1965 (Age: 35) ??F ? Collect Date: ? 09/24/2000 ? Location: ? [facility] ? Receive Date: ? 09/24/2000 ? Provider: DEONTE CHOPRA MD Copy to: SHERRY PEDERSEN MD ? Final Pathologic Diagnosis: ? Soft tissue, vaginal wall cyst, excision: - ??Benign Mcllerian cyst. Document reviewed and electronically signed by: MARTHA HAGAN MD Report ??Date: 09/28/2000 15:06 By the signature above, the attending physician certifies that he/she has personally conducted a gross and/or microscopic examination of the described specimens and rendered or confirmed the above diagnosis. Specimen(s) Received: ? Vaginal wall cyst Clinical History: ? Vaginal wall cyst Gross Description: ? Received in formalin labelled [place] and #1 vaginal wall cyst is an irregular to oval shaped fragment of soft tissue which weighs 2.46 grams and which measures 2.8 x 1.0 x 1.0 cm. ??The excision margins of the specimen are black inked. ??The specimen is then serially sectioned revealing a 1.0 to 1.2 cm cyst filled with a bose-white gelatinous material. ??The specimen is submitted entirely as (A1) through (A3). ??(Dr. Sanford)/[facility] End of Report [facility] 09/24/2000 09/24/2000 15: 32 EDT Deonte Chopra MD PATHOLOGY ORDERABLES [facility] [address] [place] [address] documented in this encounter Visit Diagnoses Not on filedocumented in this encounter
--- OUTSIDE RECORDS SUMMARY | 2024-10-05 10:52 | XMS_ITS | Encounter Summary ---
Author Organization [facility] Address [facility] [place] [address] Care Team Providers Care Wire Inspector Name Role Phone Ayana Lai MD Primary Care Provider [phone] Encounter Details Date Type Department Care Team (Late st Contact Info) Description 02/12/2011 1:35 PM EDT Office Visit Psychiatry [place] [phone] Marlen Morocho MD PSYCHIATRY DEPT. [facility] [place] [address] Social History Tobacco Use Types Packs/Day Years [...] Visit (TeleHealth) Psychiatry [place] [phone] Isaura García APRN [facility] [place] [address] documented as of this encounter Visit Diagnoses Not on filedocumented in this encounter Care Teams Wire Inspector Relationship Specialty Start Date End Date Ayana Lai MD [address] [place], [place] [id number] PCP - General 10/22/10 07/17/11 documented as of this encounter
--- OUTSIDE RECORDS SUMMARY | 2024-10-05 10:52 | XMS_ITS | Encounter Summary ---
Author Organization [facility] Address [address] [place] [address] Care Team Providers Care Bookmobile Clerk Name Role Phone Unavailable Primary Care Provider Unavailabl e Encounter Details Date Type Department Care Team (Late st Contact Info) Description 12/04/1999 Results Only [facility] - Maple conversion [address] [place] [address] Carolann Castro [address] [place], [place] [id number] Social History Tobacco Use Types Packs/Day Years Used Date Smoking Tobacco: Never Assessed Sex and Gender Information Value Date Recorded Sex Assigned at Not on file Gender Identity Not on file Sexual Orientation Not on file documented as of this encounter Plan of Treatment Not on file documented as of this encounter Procedures Procedure Name Priority Date/Time Associated Diagnosis Comments CYTOPATHOLOGY Routine 12/04/1999 9:41 EST documented in this encounter Results * CYTOPATHOLOGY (12/04/1999 9:41 EST) Pathology Report: CYTOPATHOLOGY REPORT Reports generated via electronic interface contain original data; however they are lacking the format of the original report. Caution should be taken when reading/interpreti ng unformatted reports. Name: ? SHIREEN SILVA ? Accession #: ? [id number] : ? 1965 (Age: 34) ??F ?Collect Date: ? 12/04/1999 Location: ?Receive Date: ? 12/04/1999 Provider: ?ANEA ROMÁNLONG CNM Copy to: ?ANEA LELONG CNM ? Specimen/Source: ?Assembly Associate ThinPrep Last Menstrual Period: ? GYNECOLOGIC ??CYTOPATHOLOGY ??REPORT Name: SHIREEN SILVA ? [facility] : 1965 ?? 34Y F ?Client ID: [id number] SS#: [id number] ? Clinician: LELONG CNM, ANEA ?? Location: [facility] ??Copy to: ?? Specimen: ?Assembly Associate ThinPrep ? Source: Cervix/Endocervix ?Collected: 12/02/1999 ?? [...] By: ? Harriett Jessica, CT(ASCP) ? Report Date: ?? 12/04/1999 Gingr Archived Tests - Final Diagnosis Text Field: Clinical History : ? Document reviewed and electronically signed by: ? Conversion ? Report Date: ??12/04/1999 00:00 End of Report [facility] 12/04/1999 9:41 EST 12/04/1999 9:42 EST Carolann Castro CNM PATHOLOGY ORDERABLES [facility] [address] [place] [address] documented in this encounter Visit Diagnoses Not on filedocumented in this encounter
--- OUTSIDE RECORDS SUMMARY | 2024-10-05 10:52 | XMS_ITS | Encounter Summary ---
Author Organization [facility] Address [facility] [place] [address] Care Team Providers Care Brothel Keeper Name Role Phone Ayana Lai MD Primary Care Provider [phone] Encounter Details Date Type Department Care Team (Late st Contact Info) Description 11/13/2010 1:35 PM EST Office Visit Psychiatry [place] [phone] Marlen Morocho MD PSYCHIATRY DEPT. [facility] [address] Social History Tobacco Use Types Packs/Day Years [...] Visit (TeleHealth) Psychiatry [place] [phone] Isaura García APRN [facility] [place] [place] [address] documented as of this encounter Visit Diagnoses Not on filedocumented in this encounter Care Teams Brothel Keeper Relationship Specialty Start Date End Date Ayana Lai MD [address] [place], [place] [phone] PCP - General 11/23/10 8/18/11 documented as of this encounter
--- OUTSIDE RECORDS SUMMARY | 2024-10-05 10:52 | XMS_ITS | Continuity of Care Document ---
Author Name [facility] Organization [facility] Care Team Providers Care Emergency Management System Director Name Role Phone [facility] Unavailable Unavailable Social History Combined list of available smoking, tobacco, and other social history from Department of Defense and Veterans Affairs facilities. Social History Type Response Date Comment Sourc e This section is an empty social history section. [facility]
--- OUTSIDE RECORDS SUMMARY | 2024-10-05 10:52 | XMS_ITS | Encounter Summary ---
Author Organization [facility] Address [address] [place] [address] Care Team Providers Care Pastry Wrapper Name Role Phone Ayana Lai MD Primary Care Provider [phone] Encounter Details Date Type Department Care Team (Late st Contact Info) Description 12/15/2012 Results Only [facility] ([facility] [place] [address], [place] [phone] Bart Dong NP [address] [place] [address] Social History Tobacco Use Types Packs/Day Years Used Date Smoking Tobacco: Never Assessed Sex and Gender Information Value Date Recorded Sex Assigned at Not on file Gender Identity Not on file Sexual Orientation Not on file documented as of this encounter Plan of Treatment Not on file documented as of this encounter Procedures Procedure Name Priority Date/Time Associated Diagnosis Comments PAP TEST- RESULT ONLY Routine 12/15/2012 0:00 EST documented in this encounter Results * PAP TEST- RESULT ONLY (12/15/2012 0:00 EST) Pathology Report: CYTOPATHOLOGY REPORT Reports generated via electronic interface contain original data; however they are lacking the format of the original report. Caution should be taken when reading/interpreti ng unformatted reports. Name: ? SHIREEN SILVA ? Accession #: ? [id number] ? : ? 1965 (Age: 47) ??F ?Collect Date: ? 12/15/2012 ? Location: ? [facility] ? Receive Date: ? 12/17/2012 ? Provider: BART DONG UNDERCOLLAR BASTER Copy to: ? Final Report SPECIMEN ADEQUACY ? Satisfactory for Evaluation - transformation zone component present GENERAL CATEGORIZATION ? Negative for Intraepithelial Lesion or Malignancy INTERPRETATION ? Reactive cellular changes associated with inflammation present (includes repair). Last Menstrual Period: 11/26/12 Specimen/Source: ??Pap Test, Cervix/Endocervix, ThinPrep Imaging System with manual evaluation Document reviewed and electronically signed by: ? ANDERSON ELIAS MD ? Report ??Date: 12/23/2012 17:28 HPV with Pap Test ? Date Ordered: ? 12/23/2012 ? Status: ?? Signed Out ?Date Complete: ? 12/30/2012 ? By: ??System Interface ? Date Reported: ? 12/30/2012 ? Interpretation RESULT: Negative for HPV. No E6 or E7 mRNA is detected from HPV types 16,18,31,33,35, 39,45,51,52,56,58, 59,66, and 68 by social work case manager mediated amplification. Comments Document reviewed and electronically signed by: ? System Interface ? Report date: 12/30/2012 By the signature above, the attending physician certifies that he/she has personally conducted a gross and/or microscopic examination of the described specimens and rendered or confirmed the above diagnosis. End of Report [facility] 12/15/2012 12/17/2012 Bart Dong UNDERCOLLAR BASTER PATHOLOGY ORDERABLES [facility] [address] [place] [address] documented in this encounter Visit Diagnoses Not on filedocumented in this encounter Care Teams Pastry Wrapper Relationship Specialty Start Date End Date Ayana Lai MD [address] [place], [place] [phone] PCP - General 10/10/10 documented as of this encounter
--- OUTSIDE RECORDS SUMMARY | 2024-10-05 10:52 | XMS_ITS | Encounter Summary ---
Author Organization [facility] Address [address] [place] [address] Care Team Providers Care Glove Turner And Former Name Role Phone Ayana Lai MD Primary Care Provider Encounter Details Date Type Department Care Team (Late st Contact Info) Description 01/25/2018 Results Only [facility] [place] [phone] Mandeep Gudino, [place] [address] [place] [address] Social History Tobacco Use Types Packs/Day Years [...] Diagnosis Comments PAP TEST- RESULT ONLY Routine 01/25/2018 0:00 EST documented in this encounter Results * PAP TEST- RESULT ONLY (01/25/2018 0:00 EST) Pathology Report: CYTOPATHOLOGY REPORT Reports generated via electronic interface contain original data; however they are lacking the format of the original report. Caution should be taken when reading/interpreti ng unformatted reports. Name: ? SHIREEN SILVA ? Accession #: ? [id number] ? : ? 1965 (Age: 52) ??F ?Collect Date: ? 01/25/2018 ? Location: ? [facility] ? Receive Date: ? 01/26/2018 ? Provider: MANDEEP KESSLER Copy to: ? Final Report SPECIMEN ADEQUACY ? Satisfactory for Evaluation - transformation zone component present GENERAL CATEGORIZATION ? Negative for Intraepithelial Lesion or Malignancy ?? Specimen/Source: ??Pap Test, Cervix, ThinPrep Imaging System with manual evaluation Document reviewed and electronically signed by: ? Gaby Zarco, CT(ASCP) ? Report ??Date: 02/04/2018 13:40 HPV with Pap Test ? Date Ordered: ? 02/04/2018 ? Status: ?? Signed Out ?Date Complete: ? 02/05/2018 ? By: ??System Interface ? Date Reported: ? 02/05/2018 ? Interpretation RESULT: Negative for HPV. No E6 or E7 mRNA is detected from HPV types 16,18,31,33,35, 39,45,51,52,56,58, 59,66, and 68 by recreational vehicle resort manager mediated amplification. Comments Document reviewed and electronically signed by: ? System Interface ? Report date: 02/05/2018 By the signature above, the attending physician certifies that he/she has personally conducted a gross and/or microscopic examination of the described specimens and rendered or confirmed the above diagnosis. End of Report [facility] 01/25/2018 01/26/2018 Mandeep Terese VALEROP PATHOLOGY ORDERABLES [facility] [address] [place] [address] documented in this encounter Visit Diagnoses Not on filedocumented in this encounter Care Teams Glove Turner And Former Relationship Specialty Start Date End Date Ayana Lai MD [address] [place], [place] [address] PCP - General 10/10/10 documented as of this encounter
[2024-10-06 19:32] LABS: Lithium 0.4 mmol/L (0.6-1.2)
[2024-10-06 20:09] LABS: ALT 43 U/L (14-59); AST 29 U/L (15-37); Albumin 3.8 g/dL (3.4-5.0); Alkaline Phosphatase 76 U/L (46-116); Anion Gap 7.4 mmol/L (3-11); BUN 23 mg/dL (7-18); Bilirubin, Total 0.39 mg/dL (0.2-1.0); CO2 29.6 mmol/L (21.0-32.0); CREATININE 1.3 mg/dL (0.55-1.02); Calcium 10.5 mg/dL (8.5-10.1); Calculated LDL 125 mg/dL (<100); Chloride 107 mmol/L (98-107); Cholesterol 245 mg/dL (<200); Estimated GFR 47.96 (mL/min/1.73m2); Glucose 89 mg/dL (74-106); HDL Cholesterol 88 mg/dL (40-60); Potassium 4.7 mmol/L (3.5-5.1); Sodium 144 mmol/L (136-145); TSH 0.93 uIU/mL (0.36-3.74); Total Protein 7.1 g/dL (6.4-8.2); Triglyceride 163 mg/dL (<150)
[2024-10-06 20:28] LABS: FREE T4 0.72 ng/dL (0.76-1.46)
[2024-10-07 18:47] LABS: Parathyroid Hormone,Intact 114 pg/mL (19-88)
== END 2024-10-05 10:46 | disposition home or self-care (01) ==
LOC: NCHCN 10:45
PROVIDERS: Visit Provider Nurse Practitioner Family
DX: E78.5 Hyperlipidemia, unspecified (principal); E83.52 Hypercalcemia; F31.9 Bipolar disorder, unspecified; Z68.33 Body mass index [BMI] 33.0-33.9, adult
CPT/HCPCS: 80053; 80061; 80178; 83970; 84439; 84443; 85025

== ENCOUNTER 2025-01-12 02:46 | Outpatient (CLI) | payer MEDICARE, BC, SELFPAY ==
--- NOTE | 2025-01-12 | DI.DEXA_ITS ---
Exam(s) XR DEXA BONE DENSITY W/WO ILEANA EXAM: XR DEXA BONE DENSITY W/WO ILEANA CLINICAL HISTORY: HYPERCALCEMIA, E83.52,HYPERPARATHYROIDISM,E21.3,EVALUATE FOR OSTEOPOROSIS TECHNIQUE: Routine DEXA evaluation of the lumbar spine, hip, or forearm. COMPARISON: No exams were available for comparison FINDINGS: Performed on a Hologic unit. Lateral image: No compression fracture evident. Lumbar Spine total T-score: 0.4 Hip total T-score:-0.3 Independent reading at the level of the femoral neck yields T-score of -0.4 Forearm total T-score: -1.6 IMPRESSION: Bone mineral density measures in the normal range for the lumbar spine and hip and in osteopenia rang e for the forearm/wrist. Fracture risk is low-moderate. Note: Any spine fracture indicates 5x risk for subsequent spine fracture and 2x risk for subsequent h ip fracture. World Health Organization criteria for BMD interpretation classify patients: Normal...... T- Score at or above -1.0 Osteopenic... T- Score between -1.0 and -2.5 Osteoporosis... T-Score at or below -2.5
== END 2025-01-12 03:06 ==
PROVIDERS: Visit Provider Student in an Organized Health Care Education/Training Program
DX: E21.3 Hyperparathyroidism, unspecified (principal); M85.89 Other specified disorders of bone density and structure, multiple sites
CPT/HCPCS: 77080

== ENCOUNTER 2025-01-19 18:20 | Outpatient (REF) | payer MEDICARE, BC, SELFPAY ==
[2025-01-19 15:59] LABS: Creatinine,24hr Ur 0.87 g/24hr (0.60-1.80); Creatinine,Urine < 13.0 mg/dL; Total Volume 6700 ml
[2025-01-20 09:26] LABS: Calcium Urine 1.8 mg/dL (See Note); Calcium Urine 24 hr 121 mg/24hr (100-300); Timed Urine Volume 6700 mL
== END 2025-01-19 18:21 | disposition home or self-care (01) ==
LOC: LBN 18:20
PROVIDERS: Visit Provider Student in an Organized Health Care Education/Training Program
DX: E83.52 Hypercalcemia (principal)
CPT/HCPCS: 81050; 82340; 82570

== ENCOUNTER 2025-03-22 02:39 | Outpatient (CLI) | payer MEDICARE, BC, SELFPAY ==
--- NOTE | 2025-03-22 | DI.MAMMO_ITS ---
Exam(s) MAMMO SCREENING EXAM: MAMMO SCREENING CLINICAL HISTORY: Mammo Screening Z12.39 TECHNIQUE: Bilateral full field digital CC and MLO mammographic images were obtained with 3D tomosyn thesis and utilizing computer aided detection (CAD). COMPARISON: Available for comparison. FINDINGS: Masses/Architectural Distortion: No suspicious masses or areas of architectural distortion are presen t. Microcalcifications: No suspicious pleomorphic-type are seen. Skin Thickening/Nipple Retraction: None. IMPRESSION: 1. No significant interval change with no specific features of malignancy noted. 2. Unless there is more urgent need, screening mammography is recommended, as per [place] [employer] guidelines. BI-RADS Category 1 - Negative Breast Density - Category B - Scattered areas of fibroglandular density Breast density category C or D implies that the patient has dense breast tissue. Dense breast tissue is very common and is not abnormal but dense breast tissue can make it harder to find cancer on a ma mmogram. Also, dense breast tissue may increase their breast cancer risk. This information about the result of the mammogram report was provided to the patient to raise their awareness. Use this report when you speak with the patient about their risks for breast cancer, which includes their family hist ory. At that time, you may recommend for more screening tests (Ultrasound or MRI) as they might be us eful based on their risk. A negative radiographic report should not delay biopsy if a dominant or clinically suspicious mass is present. Up to ten percent of cancers are not identified on mammography. A negative report may reinforce clinical impression. Adenosis and dense breasts may obscure an underlying neoplasm. False positive reports average 6 to 10%. Patient will receive a letter notifying them of these results.
== END 2025-03-22 02:59 ==
PROVIDERS: PCP Nurse Practitioner Family; Visit Provider Nurse Practitioner Family
DX: Z12.31 Encounter for screening mammogram for malignant neoplasm of breast (principal); R92.323 Mammographic fibroglandular density, bilateral breasts
CPT/HCPCS: 77063; 77067

== ENCOUNTER 2025-05-14 19:48 | Emergency (ER) | payer MEDICARE, BC, SELFPAY ==
[2025-05-14 19:49] VITALS: BP 155/88; PULSE 63; RESP 15; TEMP 36.7; O2SAT 96
--- NOTE | 2025-05-14 20:05 | W.ED.GENAD ---
Discharge Plan Disposition Patient Disposition: Home Condition: Stable Discharge Details Clinical Impression: Herpes zoster Primary Care Provider: KAYLEE LOBO ED Provider: Zofia Baker Home Meds and New Rx's Prescriptions: New valacyclovir 1 gram tablet 1,000 mg PO TID 4 Days Qty: 12 0RF No Action mecobalamin (vitamin B12) 1,000 mcg tablet,chewable 1,000 mcg PO DAILY cholecalciferol (vitamin D3) 50 mcg (2,000 unit) capsule 50 mcg PO DAILY atorvastatin 40 mg tablet 40 mg PO DAILY mirtazapine 15 mg tablet 7.5 mg PO QHS acetaminophen [Acetaminophen Extra Strength] 500 mg Tablet 500 - 1,000 mg PO Q6H PRN gabapentin 600 mg tablet 600 tab PO HS Patient Comments: TAKE ONE TABLET BY MOUTH EVERY DAY lithium carbonate 300 mg capsule 300 mg PO HS lorazepam 0.5 mg tablet 0.5 mg PO Q6H PRN Patient Comments: TAKE ONE TABLET BY MOUTH EVERY 6 HOURS NEEDED FOR ANXIETY fluoxetine 20 mg capsule 40 mg PO DAILY Patient Comments: TAKE 1 CAPSULE BY MOUTH ONCE DAILY lithium carbonate 300 mg tablet extended release 300 mg PO QAM Patient Comments: TAKE 2 TABLETS BY MOUTH EVERY MORNING AND TAKE 3 TABLETS EVERY EVENING Discharge Instructions Instructions: Shingles Additional Instructions: You were seen in the emergency department today for evaluation of a rash on your shoulder that is likely due to shingles. In our department a full physical examination performed, and you were prescribed valacyclovir to take 3 times per day for the next 5 days. Your first day of medications was given to you here in the emergency department. Please use therapeutic dosing of Tylenol (acetaminophen) & Advil (ibuprofen) in an alternating fashion as follows: Take 1000mg of Tylenol every 6 hours without missing doses- that is 4 times per day. Fpc in between the Tylenol doses, take 600mg of Advil also on a 6 hour schedule, that is also 4 times per day. With this strategy, you will be taking something for fever/pain as often as every 3 hours. The daily maximum dosing of Tylenol is 4000mg, and the daily maximum dosing of Advil is 2400mg. Please note that some common cold medications & prescription pain medications may contain acetaminophen and you need to read OTC drug labels and factor that in to maximum daily doses. You can also use Lidoderm patches, capsaicin cream, or other [id number] topical therapies to manage your pain. Please follow-up with your primary care provider in the next few days to discuss this visit and any symptoms that change, worsen, or persist. Thank you for allowing us to be part of your care. HPI General Mode of arrival: ambulatory. Date/Time Provider Initiated Documentation: 05/14/25 19:48. Limitations to Documentation: no limitations. Information obtained by: patient, family and old records reviewed. HPI Narrative: This is a 60-year-old female patient with a past medical history significant for shingles in the past, presenting for evaluation of burning rash on the right shoulder. She reports that she worked in the garden and sustained several bug bites, but this rash developed today and feels different. She has not noted itching but does note burning and pain. Has not tried any medications in the home environment for management of the symptoms. Has not had a fever or other systemic symptoms. This is an isolated complaint and the patient is otherwise in her normal state of health. She does not immunosuppressed. Related Data Home Medications ?Medication ?Instructions ?Recorded ?Confirmed fluoxetine 20 mg capsule 40 mg PO DAILY 11/29/20 05/14/25 lorazepam 0.5 mg tablet 0.5 mg PO Q6H PRN 11/29/20 05/14/25 acetaminophen 500 mg tablet 500 - 1,000 mg PO Q6H PRN 05/26/22 05/14/25 (Acetaminophen Extra Strength) gabapentin 600 mg tablet 600 tab PO HS 05/26/22 05/14/25 atorvastatin 40 mg tablet 40 mg PO DAILY 09/21/23 05/14/25 cholecalciferol (vitamin D3) 50 50 mcg PO DAILY 09/21/23 05/14/25 mcg (2,000 unit) capsule mirtazapine 15 mg tablet 7.5 mg PO QHS 09/21/23 05/14/25 mecobalamin (vitamin B12) 1,000 1,000 mcg PO DAILY 09/24/23 05/14/25 mcg chewable tablet lithium carbonate 300 mg capsule 300 mg PO HS 12/08/23 05/14/25 lithium carbonate 300 mg 300 mg PO QAM 12/08/23 05/14/25 tablet,extended release valacyclovir 1 gram tablet 1,000 mg PO TID 4 days #12 tabs 05/14/25 Previous Rx's ?Medication ?Instructions ?Recorded valacyclovir 1 gram tablet 1,000 mg PO TID 4 days #12 tabs 05/14/25 Allergies Allergy/AdvReac Type Severity Reaction Status Date / Time NSAIDS (Non-Steroidal AdvReac Intermediate Other (See Verified 05/14/25 19:54 Anti-Inflamma Comment) General Stated Complaint: RashLesion EDIN: 4 Exam Narrative Exam Narrative: Gen: Awake and alert, in no apparent distress HEENT: Non-icteric sclera Neck: Supple Lungs: No apparent respiratory distress, normal respiratory effort. CV: Appears well perfused Abdomen: Non-distended MSK: Moves 4 extremities without apparent limitation in ROM Skin: The patient does have a red raised rash in a linear distribution across the anterior right shoulder, I do note 1 early vesicle with no crusting. The right upper extremity also has evidence of insect bites and excoriations separate from the shoulder rash Neuro: Normal Gait, no obvious focal deficits or facial asymmetry. Speaks in full, clear sentences. Psych: Appropriate for situation. Course Vital Signs Vital signs: Vital Signs Temperature 36.7 C 05/14/25 19:49 Pulse 63 05/14/25 19:49 Respiratory Rate 15 05/14/25 19:49 Blood Pressure 155/88 H 05/14/25 19:49 Pulse Oximetry 96 05/14/25 19:49 Temperature 36.7 C 05/14/25 19:49 Temperature Source Oral 05/14/25 19:49 Pulse 63 05/14/25 19:49 Respiratory Rate 15 05/14/25 19:49 Blood Pressure 155/88 H 05/14/25 19:49 Pulse Oximetry 96 05/14/25 19:49 Oxygen Delivery Method Room Air 05/14/25 19:49 Oxygen Flow Rate 0 05/14/25 19:49 Pain Level 0 05/14/25 19:49 Medical Decision Making This is a 60-year-old female patient presenting for evaluation of a rash on her right shoulder. My differential includes but is not limited to herpes zoster, contact dermatitis, certainly considered poison tuan exposure in this patient who was outside in the garden, as well as insect bites. The rash is not concerning for cellulitis, abscess, or other skin or soft tissue infection. The patient is systemically well, and I have no concerns for emergent rashes such as SJS, TEN, drug eruptions. I provided the patient with her first dose of valacyclovir, and a prescription for same. I counseled her on conservative multimodal pain management with Tylenol, ibuprofen, Lidoderm and capsaicin topical. At this time, the patient has had a full medical evaluation and is safe for discharge to home. They are hemodynamically stable, ambulatory, and tolerating PO. They are understanding of the follow-up plan and return precautions. They left our facility without incident. Zofia Baker MD [facility] All Active Problems (Updated 05/14/25 @ 20:05 by Zofia Baker MD) Herpes zoster (Acute) Speech apraxia (Acute) Confusion (Acute) Tremor (Acute) Rib pain on right side (Acute) Medical History Gluten intolerance Bipolar 1 disorder Multinodular goiter Chronic rhinitis Periodic limb movement disorder Alcohol abuse Hyperlipidemia Vitamin D deficiency Hypercalcemia Surgical History No pertinent past surgical history Family History Father Hyperlipidemia Mother Hyperlipidemia Heart disease Social History Smoking/Tobacco Use Status: Former Tobacco Use Smoking risk assessment performed?: Yes Alcohol Intake: current Alcohol Intake frequency: 3 or more drinks per day Alcohol type: wine Drug use: Never Substance use type: does not use Household members: spouse and children Housing: house Number of Children: 3 current occupation: Disabled What is your relationship status?: Panel score (0-1 are the most socially isolated patients): 1 Do you feel safe at home: Yes Do you feel safe in your relationship?: Yes Additional Social history: son lives with her
[2025-05-14] MEDS: valACYclovir 500 MG TAB (20:24)
--- NOTE | 2025-05-15 14:34 | NUR.NOTE ---
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 I spoke with [facility] in [facility] and the pharmacist told me that she had enough of the medication to fill it for the patient. She was going to request that [place] return the prescription and she would fill it, it should be done in about an hour. I called the patient back and let her know that what was happening and that she would have to go to [facility], but they were able to fill it today for her.
== END 2025-05-14 20:26 | disposition home or self-care (01) ==
PROVIDERS: Emergency Provider Emergency Medicine; PCP Nurse Practitioner Family
DX: B02.9 Zoster without complications (principal); E78.5 Hyperlipidemia, unspecified; Z87.891 Personal history of nicotine dependence
CPT/HCPCS: 99283

== ENCOUNTER 2025-06-14 02:51 | Outpatient (CLI) | payer MEDICARE, BC, SELFPAY ==
[2025-06-14 14:04] LABS: Calcium 9.5 mg/dL (8.5-10.1); TSH 0.47 uIU/mL (0.36-3.74)
== END 2025-06-14 02:52 | disposition home or self-care (01) ==
LOC: LBO 02:51
PROVIDERS: PCP Nurse Practitioner Family; Visit Provider Surgery
DX: E89.0 Postprocedural hypothyroidism (principal); E21.0 Primary hyperparathyroidism
CPT/HCPCS: 36415; 82310; 83970; 84443